=== PATIENT | female | born 1950 | race Caucasian/White ===

== ENCOUNTER → 2017-09-24 08:09 | Outpatient (CLI) | payer OTHER, SELFPAY ==
--- NOTE | 2017-09-24 14:08 | LES_PTH ---
PATIENT: NERISSA RG [facility] U#:[id number] AGE/SX: 74/F ROOM: RE09/24/[address]: Dr. Maksim Unger MD : 1950 BED: DIS: SPEC #: [id number] RECD: 09/24/17 18:25 STATUS: ESDRAS ALEXI #: [id number] IZZY: 09/24/17 14:[address]: Maksim Unger DEPT: SURGICAL PATHOLOGY RECD BY: Dinesh Bernstein ENTERED: 09/25/17 09:28 SP TYPE: Lesion OTHR DR: Kaylynn Ramirez, DEATH SURVEYS CODER-C Tissues: Skin of nose, NOS Procedures: Surgery Specimen Level IV HEADER OPERATION: Intradermal excision lesion left nasal dorsum PRE-OP DIAGNOSIS: Enlarging lesion left nasal dorsum TISSUE SUBMITTED: Left nasal dorsum MICROSCOPIC DIAGNOSIS Left nasal dorsum lesion, shave biopsy: Intradermal nevus. SJ:camila 09/28/17 MICROSCOPIC DESCRIPTION Slides are reviewed. GROSS DESCRIPTION Received in fixative is one container labeled with the patient's name and designated lesion, left nasal dorsum. The specimen consists of a light galeas shaved skin measuring 0.6 x 0.4 x 0.1 cm. The specimen is totally submitted in one cassette for postfixation sectioning. / AM:camila 09/25/17 TC:1 CPT: 34766
== END ==
PROVIDERS: Family Provider Nurse Practitioner; PCP Nurse Practitioner; Visit Provider Surgery
DX: J34.89 Other specified disorders of nose and nasal sinuses (principal)
CPT/HCPCS: 88305

== ENCOUNTER → 2018-01-28 06:28 | Outpatient (CLI) | payer OTHER, SELFPAY ==
[2018-01-28 06:34] LABS: Bacteria 0 SEEN /hpf (None Seen); Mucous, Urine 0 SEEN /hpf (<or=2+); Red Blood Cells-Urine 0 SEEN /hpf (0-5); White Blood Cells 0 SEEN /hpf (0-5)
[2018-01-28 07:26] LABS: Color, Urine Yellow (Yellow); Glucose, Dipstick Normal (Normal); Ketone-Dipstick Negative (Negative); Leukocyte Esterase-Dipstick Negative /ul (Negative); Nitrite-Dipstick Negative (Negative); Occult Blood-Urine Negative /ul (Negative); Protein-Dipstick Negative (Negative); Urine Bilirubin Dipstick Negative (Negative); Urine Clarity Clear (Clear); Urine Urobilinogen Normal (Normal)
[2018-01-28 07:33] LABS: Squamous Epithelial Cells - UA 0-5 SEEN /hpf (5-10)
[2018-01-28 07:41] LABS: Microalbumin,Random Urine < 5.0 mg/L (NO RANGE EST.)
[2018-01-28 07:45] LABS: Hemoglobin A1c 5.9 % (4.2-6.3)
[2018-01-28 07:48] LABS: Cholesterol 215 mg/dL (200); Glucose 95 mg/dL (74-106); High Density Lipoprotein 66 mg/dL; Triglycerides 124 mg/dL; Very Low Density Lipoprotein 25 mg/dL (5-40)
== END ==
PROVIDERS: Family Provider Nurse Practitioner; PCP Nurse Practitioner; Visit Provider Nurse Practitioner
DX: E78.00 Pure hypercholesterolemia, unspecified (principal); R73.01 Impaired fasting glucose; E55.9 Vitamin D deficiency, unspecified; Z80.6 Family history of leukemia
CPT/HCPCS: 36415; 80061; 81001; 82043; 82306; 82570; 82947; 83036

== ENCOUNTER → 2018-08-24 09:22 | Outpatient (CLI) | payer OTHER, SELFPAY ==
--- NOTE | 2018-08-24 09:28 | BD_ITS ---
STUDY: DUAL ENERGY X-RAY ABSORPTIOMETRY / DXA REASON FOR EXAM: Female, 68 years old. The patient is postmenopausal. Loss of height. TECHNIQUE: Bone Mineral Density (BMD) measurements of lumbar spine and right hip were obtained. The patient status post left hip replacement. COMPARISON: None. FINDINGS: Lumbar Spine (L1-L4): g/cm2 (0.964) / T-score (-1.8) / Z-score (-0.2) Findings are suggestive of osteopenia with a moderate fracture risk. Right Femur Total: g/cm2 (0.826) / T-score (-1.4) / Z-score (-0.2) Right Femoral Neck: g/cm2 (0.777) / T-score (-1.9) / Z-score (-0.4) BD/Dexa Bone Density Study IMPRESSION: The patient is considered osteopenic as outlined below according to World Dariel Organization (WHO) criteria with a moderate fracture risk. Reference Information: The T-score is the number of standard deviations above or below the standard which is normal for young adults at their peak bone mineral density. The World Health Organization (WHO) interprets the T-scores as follows: Above -1 Normal bone density Between -1 and -2.5 Osteopenia Equal to / or below -2.5 Osteoporosis As a practical clinical guideline, osteopenia may be graded as follows: Mild -1 through -1.5 Moderate -1.6 through -2.0 Severe -2.1 through -2.4 The Z-score is the number of standard deviations above or below age-matched controls. A Z-score of less than -1.5 would be considered abnormal. References: 1. NIH Osteoporosis and Related Bone Diseases http://www.osteo.org 2. International Society for Clinical Densitometry http://www.iscd.org 3. National Osteoporosis Foundation http://www.nof.org Electronically Signed: Jung Sarmiento, at 13:06 EDT , Service support ,
--- NOTE | 2018-08-24 09:28 | BI_ITS ---
MAMMOGRAPHY - BILATERAL SCREENING REASON FOR EXAM: Female, 68 years old. Routine annual screening examination. PERTINENT HISTORY: Aunt with breast cancer. TECHNIQUE: Digital bilateral breast robert (3D mammographic acquisition) in the CC and MLO projections. 2-D mediolateral oblique (MLO) and craniocaudad (CC) views of both breasts were obtained. CAD: Full Field Digital Mammography with Computer Added Detection was performed. COMPARISON: Comparison is made with prior examination dated October 13, 2014. FINDINGS: Breast Composition: The breasts are heterogeneously dense, which may obscure small masses. There are no dominant masses or suspicious calcifications. No other significant abnormalities are identified. There has been no significant change since the prior study. BI/SCREENING MAMM (CAD), BILAT IMPRESSION: Stable bilateral screening mammogram. Yearly follow-up mammogram recommended. (A) ASSESSMENT CATEGORY: BIRADS Category 1: Negative. A letter regarding these results will be sent to the patient by the facility within 30 days. Approximately 10% of breast cancers are not detected by mammography. A normal mammogram should not delay biopsy of a clinically suspicious abnormality. [id number] Electronically Signed: Jung Sarmiento, at 14:59 EDT , Service support ,
== END ==
PROVIDERS: Family Provider Nurse Practitioner; PCP Nurse Practitioner; Referring Provider Nurse Practitioner; Visit Provider Nurse Practitioner
DX: Z12.31 Encounter for screening mammogram for malignant neoplasm of breast (principal); Z78.0 Asymptomatic menopausal state; M85.80 Other specified disorders of bone density and structure, unspecified site; Z96.642 Presence of left artificial hip joint
CPT/HCPCS: 77063; 77067; 77080

== ENCOUNTER → 2018-10-28 06:16 | Outpatient (CLI) | payer OTHER, SELFPAY ==
[2017-09-24 13:56] VITALS: BMI 30.6
[2018-10-28 07:57] LABS: Cholesterol 236 mg/dL (200); High Density Lipoprotein 67 mg/dL; Triglycerides 109 mg/dL; Very Low Density Lipoprotein 22 mg/dL (5-40)
[2018-10-28 08:37] LABS: Hemoglobin A1c 5.8 % (4.2-6.3)
[2018-10-28 15:06] LABS: Vitamin B12 646 pg/mL (211-911)
== END ==
PROVIDERS: Family Provider Nurse Practitioner; PCP Nurse Practitioner; Referring Provider Nurse Practitioner; Visit Provider Nurse Practitioner
DX: R73.01 Impaired fasting glucose (principal); E78.00 Pure hypercholesterolemia, unspecified; E53.8 Deficiency of other specified B group vitamins; E55.9 Vitamin D deficiency, unspecified
CPT/HCPCS: 36415; 80061; 82306; 82607; 82746; 83036

== ENCOUNTER → 2018-11-01 13:08 | Outpatient (CLI) | payer OTHER, SELFPAY ==
[2018-11-01 14:42] LABS: AST(SGOT) 17 U/L (15-37); Alanine Aminotransfer ALT/SGPT 21 U/L (13-56); Albumin, Serum 3.9 g/dL (3.2-5.0); Alkaline Phosphatase 81 U/L (45-117); Anion Gap 10 (5-15); BUN 18 mg/dL (7-18); BUN/Creat Ratio 19.2 RATIO (10-20); Calcium,Total 9.2 mg/dL (8.5-10.1); Chloride 105 mmol/L (98-107); Creatinine, Serum 0.94 mg/dL (0.55-1.02); EST Glomerular Filtration Rate 64 mL/min (>60); Est Glom Filt Rate - Afr Amer 77 mL/min (>60); Globulin 3.9 g/dL (2.2-4.2); Glucose 77 mg/dL (74-106); Magnesium 2.4 mg/dL (1.6-2.6); Potassium 3.8 mmol/L (3.5-5.1); Protein, Total 7.8 g/dL (6.4-8.2); Sodium Level 142 mmol/L (136-145); Thyroid Stim Hormone (TSH) 1.97 uIU/mL (0.358-3.74); Vitamin B12 883 pg/mL (211-911)
== END ==
PROVIDERS: Family Provider Nurse Practitioner; PCP Nurse Practitioner; Referring Provider Nurse Practitioner; Visit Provider Nurse Practitioner
DX: I49.3 Ventricular premature depolarization (principal); E53.8 Deficiency of other specified B group vitamins
CPT/HCPCS: 36415; 80053; 82607; 83735; 84443

== ENCOUNTER → 2019-03-02 06:46 | Outpatient (CLI) | payer MEDICARE, OTHER, SELFPAY ==
[2017-09-24 13:56] VITALS: BMI 30.6
[2019-03-02 07:55] LABS: Absolute Neutrophil Count 4.7 X10^3/uL (2.0-7.7); Basophil# 0.05 X10^3/uL; Basophil% 0.5 % (0-1); Eosinophil# 0.21 X10^3/uL; Eosinophils% 2.2 % (0-5); Hematocrit 42.2 % (37-47); Hemoglobin 13.3 g/dL (12.0-15.0); Lymphocyte % 41.6 % (19-41); Mean Corp Hgb Conc 31.5 g/dL (32-36); Mean Corpuscular Hgb 28.6 pg (27.0-32.0); Mean Corpuscular Volume 90.8 fL (81-99); Mean Platelet Vol. 11.6 fl (6.2-12.0); Monocyte# 0.68 X10^3/uL; Monocyte% 7.1 % (0-10); NRBC Flagged by Analyzer 0 % (0-5); Neutrophil # 4.65 X10^3/uL (2.7-7.7); Neutrophil % 48.3 % (47-70); Platelet Count 360 K/mm3 (150-450); RBC Distribution Width CV 13.9 % (11.6-14.6); RBC Distribution Width SD 46.2 fl (35.1-43.9); Red Blood Count 4.65 M/mm3 (4.2-5.4); White Blood Count 9.6 K/mm3 (4.4-11.0)
[2019-03-02 08:05] LABS: Hemoglobin A1c 5.6 % (4.2-6.3)
[2019-03-02 08:22] LABS: AST(SGOT) 17 U/L (15-37); Alanine Aminotransfer ALT/SGPT 25 U/L (13-56); Albumin, Serum 3.8 g/dL (3.2-5.0); Alkaline Phosphatase 77 U/L (45-117); Anion Gap 9 (5-15); BUN 20 mg/dL (7-18); BUN/Creat Ratio 22.4 RATIO (10-20); Calcium,Total 8.8 mg/dL (8.5-10.1); Chloride 105 mmol/L (98-107); Cholesterol 202 mg/dL (200); Creatinine, Serum 0.89 mg/dL (0.55-1.02); EST Glomerular Filtration Rate 67 mL/min (>60); Est Glom Filt Rate - Afr Amer 81 mL/min (>60); Globulin 3.8 g/dL (2.2-4.2); Glucose 95 mg/dL (74-106); High Density Lipoprotein 67 mg/dL; Potassium 3.7 mmol/L (3.5-5.1); Protein, Total 7.6 g/dL (6.4-8.2); Sodium Level 140 mmol/L (136-145); Triglycerides 120 mg/dL; Very Low Density Lipoprotein 24 mg/dL (5-40)
[2019-03-02 08:37] LABS: Vitamin D,25 Hydroxy 28.4 ng/mL (29.95-100.01)
== END ==
PROVIDERS: Family Provider Nurse Practitioner; PCP Nurse Practitioner; Referring Provider Nurse Practitioner; Visit Provider Nurse Practitioner
DX: I49.3 Ventricular premature depolarization (principal); R73.01 Impaired fasting glucose; E78.00 Pure hypercholesterolemia, unspecified; E55.9 Vitamin D deficiency, unspecified; E53.8 Deficiency of other specified B group vitamins
CPT/HCPCS: 36415; 80053; 80061; 82306; 83036; 85025

== ENCOUNTER → 2019-06-08 09:53 | Outpatient (CLI) | payer MEDICARE, OTHER, SELFPAY ==
[2017-09-24 13:56] VITALS: BMI 30.6
[2019-06-08 10:41] LABS: Color, Urine Yellow (Yellow); Glucose, Dipstick Normal (Normal); Ketone-Dipstick Negative (Negative); Leukocyte Esterase-Dipstick Negative /ul (Negative); Nitrite-Dipstick Negative (Negative); Occult Blood-Urine Negative /ul (Negative); Protein-Dipstick Negative (Negative); Urine Bilirubin Dipstick Negative (Negative); Urine Clarity Clear (Clear); Urine Urobilinogen Normal (Normal)
[2019-06-08 11:04] LABS: AST(SGOT) 19 U/L (15-37); Alanine Aminotransfer ALT/SGPT 29 U/L (13-56); Albumin, Serum 3.8 g/dL (3.2-5.0); Alkaline Phosphatase 81 U/L (45-117); Anion Gap 4 (5-15); BUN 17 mg/dL (7-18); Calcium,Total 9.1 mg/dL (8.5-10.1); Chloride 105 mmol/L (98-107); Creatinine, Serum 0.85 mg/dL (0.55-1.02); EST Glomerular Filtration Rate 71 mL/min (>60); Est Glom Filt Rate - Afr Amer 86 mL/min (>60); Globulin 3.9 g/dL (2.2-4.2); Glucose 88 mg/dL (74-106); Potassium 3.9 mmol/L (3.5-5.1); Protein, Total 7.7 g/dL (6.4-8.2); Sodium Level 137 mmol/L (136-145)
[2019-06-08 11:09] LABS: Hemoglobin A1c 5.9 % (4.2-6.3)
[2019-06-08 11:14] LABS: Vitamin D,25 Hydroxy 40.6 ng/mL (29.95-100.01)
[2019-06-10 12:08] LABS: CHOLESTEROL TOTAL 227 mg/dL (100-199); HDL-C 72 mg/dL (>39); SMALL LDL-P 394 nmol/L (<=527); TRIGLYCERIDES 127 mg/dL (0-149)
[2019-06-10 13:38] LABS: INSULIN RESISTANCE SCORE <25 (<=45); LDL SIZE 21.6 nm (>20.5); LDL-C 130 mg/dL (0-99); LDL-P 1413 nmol/L (<1000)
== END ==
LOC: LAB 09:55
PROVIDERS: PCP Nurse Practitioner; Referring Provider Nurse Practitioner; Visit Provider Nurse Practitioner
DX: E78.00 Pure hypercholesterolemia, unspecified (principal); E55.9 Vitamin D deficiency, unspecified; R73.01 Impaired fasting glucose
CPT/HCPCS: 36415; 80053; 80061; 81002; 82306; 83036; 83704

== ENCOUNTER → 2019-10-07 10:27 | Outpatient (CLI) | payer MEDICARE, OTHER, SELFPAY ==
[2017-09-24 13:56] VITALS: BMI 30.6
[2019-10-07 11:44] LABS: Hemoglobin A1c 5.7 % (3.8-5.6)
== END ==
PROVIDERS: PCP Nurse Practitioner; Referring Provider Nurse Practitioner; Visit Provider Nurse Practitioner
DX: R73.01 Impaired fasting glucose (principal)
CPT/HCPCS: 36415; 83036

== ENCOUNTER → 2020-01-11 15:13 | Outpatient (CLI) | payer MEDICARE, OTHER, SELFPAY ==
[2017-09-24 13:56] VITALS: BMI 30.6
--- NOTE | 2020-01-11 15:16 | BI_ITS ---
MAMMOGRAPHY - BILATERAL SCREENING REASON FOR EXAM: Female, 69 years old. Routine annual screening examination. PERTINENT HISTORY: Aunt with breast cancer. TECHNIQUE: Digital bilateral breast samantha (3D mammographic acquisition) in the CC and MLO projections. 2-D mediolateral oblique (MLO) and craniocaudad (CC) views of both breasts were obtained. CAD: Full Field Digital Mammography with Computer Added Detection was performed. COMPARISON: Comparison is made with prior study dated 08/24/2018. FINDINGS: Breast Composition: The breasts are heterogeneously dense, which may obscure small masses. There are no dominant masses or suspicious calcifications. Stable benign-appearing bilateral axillary lymph nodes. No other significant abnormalities are identified. There has been no significant change since the prior study. BI/SCREEN MAMM (CAD) W/SAMANTHA BILAT IMPRESSION: Stable bilateral screening mammogram. Yearly follow-up mammogram recommended. (A) ASSESSMENT CATEGORY: BIRADS Category 2: Benign. A letter regarding these results will be sent to the patient by the facility within 30 days. Approximately 10% of breast cancers are not detected by mammography. A normal mammogram should not delay biopsy of a clinically suspicious abnormality. [id number] Electronically Signed: Jung Sarmiento, at 8:03 EDT , Service support ,
== END ==
PROVIDERS: PCP Nurse Practitioner; Referring Provider Nurse Practitioner; Visit Provider Nurse Practitioner
DX: Z12.31 Encounter for screening mammogram for malignant neoplasm of breast (principal)
CPT/HCPCS: 77063; 77067

== ENCOUNTER → 2020-02-15 08:54 | Outpatient (CLI) | payer MEDICARE, OTHER, SELFPAY ==
[2017-09-24 13:56] VITALS: BMI 30.6
[2020-02-15 09:55] LABS: Absolute Lymphocyte Count 3.41 X10^3/uL (0.83-4.51); Basophil# 0.06 X10^3/uL; Basophil% 0.7 % (0-1); Eosinophil# 0.17 X10^3/uL; Eosinophils% 1.8 % (0-5); Hematocrit 44.6 % (37-47); Hemoglobin 14.1 g/dL (12.0-15.0); Lymphocyte # 3.41 X10^3/ul (4.0); Lymphocyte % 37.1 % (19-41); Mean Corp Hgb Conc 31.6 g/dL (32-36); Mean Corpuscular Hgb 28.4 pg (27.0-32.0); Mean Corpuscular Volume 89.7 fL (81-99); Mean Platelet Vol. 11.6 fl (6.2-12.0); Monocyte# 0.57 X10^3/uL; Monocyte% 6.2 % (0-10); NRBC Flagged by Analyzer 0 % (0-5); Neutrophil # 4.96 X10^3/uL (2.7-7.7); Neutrophil % 53.9 % (47-70); Platelet Count 396 K/mm3 (150-450); RBC Distribution Width CV 14.2 % (11.6-14.6); RBC Distribution Width SD 46.5 fl (35.1-43.9); Red Blood Count 4.97 M/mm3 (4.2-5.4); White Blood Count 9.2 K/mm3 (4.4-11.0)
[2020-02-15 10:26] LABS: Hemoglobin A1c 5.9 % (3.8-5.6)
[2020-02-15 10:28] LABS: Vitamin B12 682 pg/mL (211-911); Vitamin D,25 Hydroxy 37.6 ng/mL
[2020-02-15 10:38] LABS: ALB/GLOB Ratio 0.9 RATIO (0.9-2.4); AST(SGOT) 16 U/L (15-37); Alanine Aminotransfer ALT/SGPT 23 U/L (13-56); Albumin, Serum 3.8 g/dL (3.2-5.0); Alkaline Phosphatase 79 U/L (45-117); Anion Gap 4 (5-15); BUN 15 mg/dL (7-18); BUN/Creat Ratio 16.9 RATIO (10-20); Calcium,Total 9.3 mg/dL (8.5-10.1); Chloride 109 mmol/L (98-107); Cholesterol 237 mg/dL (200); Creatinine, Serum 0.89 mg/dL (0.55-1.02); EST Glomerular Filtration Rate 67 mL/min (>60); Est Glom Filt Rate - Afr Amer 81 mL/min (>60); Globulin 4.2 g/dL (2.2-4.2); Glucose 90 mg/dL (74-106); High Density Lipoprotein 74 mg/dL; Sodium Level 140 mmol/L (136-145); Triglycerides 117 mg/dL; Very Low Density Lipoprotein 23 mg/dL (5-40)
== END ==
PROVIDERS: PCP Nurse Practitioner; Referring Provider Nurse Practitioner; Visit Provider Nurse Practitioner
DX: E78.00 Pure hypercholesterolemia, unspecified (principal); E53.8 Deficiency of other specified B group vitamins; E55.9 Vitamin D deficiency, unspecified; R73.01 Impaired fasting glucose
CPT/HCPCS: 36415; 80053; 80061; 82306; 82607; 82746; 83036; 85025

== ENCOUNTER → 2020-06-27 09:57 | Outpatient (CLI) | payer MEDICARE, OTHER, SELFPAY ==
[2017-09-24 13:56] VITALS: BMI 30.6
[2020-06-27 11:16] LABS: Vitamin D,25 Hydroxy 43.4 ng/mL
[2020-06-27 11:17] LABS: AST(SGOT) 14 U/L (15-37); Alanine Aminotransfer ALT/SGPT 20 U/L (13-56); Albumin, Serum 3.9 g/dL (3.2-5.0); Alkaline Phosphatase 86 U/L (45-117); Bilirubin, Direct 0.13 mg/dL (0.00-0.30); Cholesterol 231 mg/dL (200); Globulin 3.8 g/dL (2.2-4.2); High Density Lipoprotein 80 mg/dL; Protein, Total 7.7 g/dL (6.4-8.2); Triglycerides 146 mg/dL; Very Low Density Lipoprotein 29 mg/dL (5-40)
[2020-06-27 11:21] LABS: Hemoglobin A1c 5.6 % (3.8-5.6)
== END ==
PROVIDERS: PCP Nurse Practitioner; Referring Provider Nurse Practitioner; Visit Provider Nurse Practitioner
DX: E78.00 Pure hypercholesterolemia, unspecified (principal); E55.9 Vitamin D deficiency, unspecified; R73.01 Impaired fasting glucose
CPT/HCPCS: 36415; 80061; 80076; 82306; 83036

== ENCOUNTER 2021-06-14 11:30 | Outpatient (RCR) | payer MEDICARE, OTHER, SELFPAY ==
--- NOTE | 2021-05-02 08:56 | HP.PTEVAL ---
Patient's Visit Information NERISSA RG is a 70 year old F referred to Physical Therapy by Dr. Quinn Melissa MD with a diagnosis of Left Knee Pain. Date of Evaluation: 05/02/21 Physical Therapist: Saskia Henry DPT - Visit Plan Frequency: 2x /Week Duration: 4 Weeks Plan: Aquatic Therapy- focus on LE and core strength/stabilization with functional mobility. - Subjective In February she did a workout- walking, knee friendly lifting, core- then a few days later the left knee started to hurt-progressively worse- unable to put weight on her leg. Went and saw Dr. Melissa- started her on Meloxicam and did an injection. Reports she has an MCL sprain. Pain is located on the medial side of the knee joint- was radiating down to the ankle- but is not radiating at this point. Describes the pain as dull and achy. It was hard to put weight on it but that is getting better. Worst in last week: 3/10 Agg: being up, walking around, sit for a while and go to get up, stairs. Eases: ice, Advil, rest. Best: 0/10 after the injection. No N/T in the left foot. Workout: daily- walking work out for women over 50 years old. Was coming in swimming at in the morning but not currently doing that again. 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 Did have x-rays but no MRI. Sleep: not disturbed. PMHx: no significant changes since urgent care visit 04/21/21- Left THR - Objective Posture: FH, RS, can correct with verbal and tactile cues but does not maintain. Gait: decreased stance on the left LE with decreased heel/toe pattern. Stairs: asc recip with 1 HR- desc recip with poor control -1 HR. HR/TR: able with UE A. SLS: 5 sec then LOB. Sensation: WNL to gross touch bilateral LE. ROM: 0-130 degrees without pain. Strength: core: fair, Hip: 4/5 throughout, Knee: 4+/5, Ankle: 5/5. No pain with quad set- SLR: mild lag cueing with quad set improved without lag. Flex: HS: severe, Gastroc: severe Solues: moderate. Palpation: medial joint line - Balance/Special Test Scores Lower Extremity Functional Score: 70 - Goals Goal 1:: Patient will be I with HEP and progression Goal Time Frame: 4-6 Weeks Goal 2:: Patient will asc/desc 8 stairs recip with 1 HR and good control Goal Time Frame: 4-6 Weeks Goal 3:: Patient will ambulate >300 feet with a normalized gait pattern Goal Time Frame: 4-6 Weeks - Rehabilitation Potential Physical Therapy Diagnosis: Patient presents with hypomobility- she has decreased LE and core strength/stabilization, flex and muscular endurance leading to abnormal gait and decreased ability to perform ADL's. Rehabilitation Potential: Good - Anticipated Interventions Patient/Client Instruction: Educate patient on: Benefits of Fitness Program Therapeutic Exercise to Include: Strength training, Endurance training, Balance training, Coordination, Agility training, Body mechanics, Postural training, Flexibilty training, Gait and locomotor training, Neuromotor development, In an aquatic setting, Passive ROM, Active ROM, Dynamic Lumbar Stabilization, Mabel Exercises, Scapular Strength/Stabilization For the Purpose of:: To improve muscle performance and motor function Thank you for the opportunity to evaluate your patient. For Medicare and Medicare HMO plans, please review the plan of care and approve it. It will need to be FAXED BACK to us at [phone] for Medicare purposes. For Medicare only, by signing this I certify the plan of care. Please let me know if there are questions or concerns regarding this plan of care. Physician Signature: Date:
--- NOTE | 2021-05-27 09:56 | HP.PTREVAL_ITS ---
Dr. Quinn Melissa MD, It has been my pleasure to treat NERISSA RG over the last 9 visits for Left Knee Pain. Please see the progress note below for an update on the physical therapy plan of care! Subjective: Patient reports that she is 200% better. She is not having any pain in it- only soreness from working out. She is back to her land exercises and is working without pain. She did come in to [employer] [facility] [employer] on Thursday and did her own exercises. Would like to progress to land exercises to continue to progress. Objective/Function: Posture: good throughout in hard back chair. Gait: no deviation noted. Stairs: asc/desc 8 stairs recip- can do with no HR but prefers single HR. HR/TR: able with UE A. SLS: 8 sec then LOB with focus on pelvic stabilization. Sensation: WNL to gross touch bilateral LE. ROM: 0-130 degrees without pain. Strength: core: fair plus, Hip: 4+/5 throughout, Knee: 5/5, Ankle: 5/5. Flex: HS: mod, Gastroc: mod Solues: moderate. Palpation: not tender to touch Plan Plan: 05/27: Progression to land based program- focus on gym home exercise program and balance. Balance/Gait/Functional tests - Balance/Special Test Scores Lower Extremity Functional Score: 76 Goals Goal 1:: Patient will be I with HEP and progression Goal Time Frame: 4-6 Weeks Goal Progress: Progressing Goal 2:: Patient will asc/desc 8 stairs recip with 1 HR and good control Goal Time Frame: 4-6 Weeks Goal Progress: Goal Met Goal 3:: Patient will ambulate >300 feet with a normalized gait pattern Goal Time Frame: 4-6 Weeks Goal Progress: Goal Met Anticipated Interventions Patient/Client Instruction: Educate patient on: Benefits of Fitness Program Therapeutic Exercise to Include: Strength training, Endurance training, Balance training, Coordination, Agility training, Body mechanics, Postural training, Flexibilty training, Gait and locomotor training, Neuromotor development, In an aquatic setting, Passive ROM, Active ROM, Dynamic Lumbar Stabilization, Mabel Exercises, Scapular Strength/Stabilization For the Purpose of:: To improve muscle performance and motor function Please do not hesitate to contact me at [phone] by phone or if you have questions or concerns regarding this new plan of care! Sincerely, DEEPTI JacksonT
--- NOTE | 2021-06-14 11:47 | HP.PTDCSUM ---
It has been my pleasure to treat NERISSA RG referred by Dr. Quinn Melissa MD, with the diagnosis of Left Knee Pain for a total of 13 visit(s). Discharge Date: Please see the following information for a summary of their discharge status. Subjective: Patient reports that she worked for 10 hours last week and it was to much. She was getting better but feels like that was a set back. Feels the injection is wearing off. She felt like she as 99% better but now its tender again and 80%. LLE Pain Intensity (Out of 10): 3 % Improvement: 80 Objective/Function: Posture: good throughout in hard back chair. Gait: no deviation noted. Stairs: asc/desc 8 stairs recip- can do with no HR but prefers single HR. HR/TR: able with UE A. SLS: 8 sec then LOB with focus on pelvic stabilization. Sensation: WNL to gross touch bilateral LE. ROM: 0-130 degrees without pain. Strength: core: fair plus, Hip: 4+/5 throughout, Knee: 5/5, Ankle: 5/5. Flex: HS: mod, Gastroc: mod Solues: moderate. Palpation: not tender to touch Goal 1:: Patient will be I with HEP and progression Goal Progress: Goal Met Goal 2:: Patient will asc/desc 8 stairs recip with 1 HR and good control Goal Progress: Goal Met Goal 3:: Patient will ambulate >300 feet with a normalized gait pattern Goal Progress: Goal Met Plan: Discharge to [facility]. If there are questions or concerns regarding this patient's physical therapy, please feel free to call me at [phone]. Thank you for the referral of this patient. Sincerely, Saskia Henry, DPT Balance/Gait/Functional tests - Balance/Special Test Scores Lower Extremity Functional Score: 75
== END 2021-06-14 19:00 | disposition home or self-care (01) ==
LOC: PT 11:30
PROVIDERS: PCP Nurse Practitioner; Referring Provider Specialist; Visit Provider Specialist
DX: M17.12 Unilateral primary osteoarthritis, left knee (principal)
CPT/HCPCS: 97110; 97113; 97162; 97164

== ENCOUNTER 2022-05-08 16:47 | Outpatient (CLI) | payer MEDICARE, OTHER, SELFPAY ==
--- NOTE | 2022-05-11 16:30 | PCM.HP.STD ---
HPI - General General Date of Admission: 05/15/22 Date of Service: 05/15/22 Chief Complaint: Chronic venous insufficiency, Varicose veins with inflammation, Leg pain - Left lower extremity [facility] Narrative NERISSA RG is a 71 F who presents with a longstanding history of pain and discomfort in her left lower extremity. She suffers from chronic venous insufficiency and varicose veins with inflammation. She is active, and sleeps on a flat surface at night. She has had one episode of superficial thrombophlebitis in the right lower extremity many years ago. A venous duplex examination reveals incompetentce of the left great saphenous vein, small saphenous vein, and vein of Giacomini. The implications of this diagnosis have been discussed with the patient in detail. The options of management have been thoroughly explained. Conservative treatment measures have been implemented for many months, including leg elevation, avoidance of idle standing and sitting, graduated compression stockings, active lifestyle, weight-control measures, [id number] analgesics, etc. Despite these measures, the patient remains symptomatic, with symptoms that adversely affect daily activities, quality of life, and job functions. [facility] Medical History (Updated 05/11/22 @ 16:[address] Tyler Knight MD) Alcohol use Arthritis Bone fracture Chronic venous insufficiency Cyst High cholesterol History of irregular heartbeat History of pain when walking Leg cramps Leg pain, left Non-smoker Osteoarthritis Post-menopausal Pre-diabetes Varicose veins of left lower extremity with inflammation Home Medications simvastatin 20 mg tablet (Zocor) 20 mg PO QPM 09/24/17 [History Last Taken Unknown] ascorbic acid (vitamin C) 250 mg tablet (Vitamin C) 900 mg PO DAILY 05/08/22 [History Last Taken Unknown] vitamin D3 125 mcg (5,000 unit)-vitamin K2 90 mcg capsule 1 cap PO DAILY 05/08/22 [History Last Taken Unknown] Allergy/AdvReac Type Severity Reaction Status Date / Time No Known Allergies Allergy Unverified 05/08/22 13:13 Family History Mother A-fib Heart disease Hypertension High cholesterol Father Arthritis Pre-diabetes Hypertension High cholesterol Aunt Breast cancer Chronic lymphocytic leukemia Uncle Chronic lymphocytic leukemia Surgical History History of appendectomy History of cataract removal with insertion of prosthetic lens History of total hip replacement Social History Smoking Status: Never smoker alcohol intake: current substance use type: does not use additional social history: DOES USE ASPIRIN DOES USE IBUPROFEN Physical Exam Const alert, oriented x3, no apparent distress and well nourished General Appearance: cooperative and well developed Orientation / Consciousness: awake, oriented to person, oriented to place and oriented to time HEENT normocephalic and head/scalp atraumatic Head and Scalp: normal to inspection, normocephalic and atraumatic External Ear: external ears normal Eyes PERRL and EOMs intact bilaterally General Eye: normal appearance of both eyes Neck General: trachea midline Resp normal respiratory effort, normal air movement, no retractions, no use of accessory muscles and clear to auscultation bilaterally Effort and Inspection: able to speak in complete sentences Cardio regular rate and regular rhythm GI soft to palpation and non-tender Extremity normal capillary refill, no clubbing, cyanosis or edema and no calf tenderness Extremity Narrative: Multiple large varicosities are noted in the lower extremities bilaterally. General Extremity: Negative for clubbing or cyanosis Skin Rashes: no rashes Neuro oriented x3, CN's II-XII intact bilaterally, no focal motor deficits and no sensory deficits noted Speech: speech normal Psych thought process normal, cooperative and affect normal Appearance: grossly normal and appropriate Attitude: calm Activity / Motor Behavior: appropriate eye contact Speech: normal speech Mood & Affect: euthymic mood Thought Process: normal thought process Thought Content: normal thought content Attention / Concentration: attention grossly intact Assessment & Plan Assessment/Plan (1) Chronic venous insufficiency: (2) Varicose veins of left lower extremity with inflammation: (3) Leg pain, left: PLAN: Plan This is a 71 year-old female with a longstanding history of chronic venous insufficiency, varicose veins with inflammation, and leg pain affecting her left lower extremity. Despite conservative treatment measures, the patient continues to have symptoms that adversely affect daily activities, quality of life, and job functions. The options of management have been thoroughly discussed. The indications and risks of endovenous laser ablation of the left great saphenous vein, small saphenous vein, and vein of Giacomini have been discussed with the patient in detail. Plan: The patient is to be admitted for elective endovenous laser ablation of the left great saphenous vein, small saphenous vein, and vein of Giacomini. The indications and risks of the procedure have been discussed in detail. Expectations of the procedure have been explained. The patient's questions have been answered. The appropriate pre-procedure consent process has been undertaken.
[2022-05-14 07:35] LABS: Hematocrit 43.5 % (37-47); Mean Corp Hgb Conc 32.2 g/dL (32-36); Mean Corpuscular Hgb 29.3 pg (27.0-32.0); Mean Platelet Vol. 11.4 fl (6.2-12.0); Platelet Count 381 K/mm3 (150-450); RBC Distribution Width CV 14.4 % (11.6-14.6); Red Blood Count 4.78 M/mm3 (4.2-5.4); White Blood Count 8.8 K/mm3 (4.4-11.0)
[2022-05-14 08:05] LABS: Anion Gap 8 (5-15); BUN 16 mg/dL (7-18); BUN/Creat Ratio 16.7 RATIO (10-20); Calcium,Total 9.2 mg/dL (8.5-10.1); Chloride 108 mmol/L (98-107); Creatinine, Serum 0.96 mg/dL (0.55-1.02); EST Glomerular Filtration Rate 61 mL/min (>60); Est Glom Filt Rate - Afr Amer 74 mL/min (>60); Glucose 101 mg/dL (74-106); Sodium Level 143 mmol/L (136-145)
== END 2022-05-08 23:59 | disposition home or self-care (01) ==
LOC: PAT 05-27 16:47
PROVIDERS: Referring Provider Surgery; Visit Provider Surgery
DX: Z01.812 Encounter for preprocedural laboratory examination (principal)
CPT/HCPCS: 36415; 80048; 85027; J7040

== ENCOUNTER → 2022-06-10 | Outpatient (CLI) | payer MEDICARE, OTHER, SELFPAY ==
[2022-06-10 08:24] LABS: AST(SGOT) 15 U/L (15-37); Alanine Aminotransfer ALT/SGPT 23 U/L (13-56); Albumin, Serum 3.9 g/dL (3.2-5.0); Alkaline Phosphatase 77 U/L (45-117); Anion Gap 6 (5-15); BUN 19 mg/dL (7-18); BUN/Creat Ratio 19.2 RATIO (10-20); Calcium,Total 9.3 mg/dL (8.5-10.1); Chloride 106 mmol/L (98-107); Cholesterol 343 mg/dL (200); Creatinine, Serum 0.99 mg/dL (0.55-1.02); EST Glomerular Filtration Rate 59 mL/min (>60); Est Glom Filt Rate - Afr Amer 71 mL/min (>60); Globulin 3.8 g/dL (2.2-4.2); Glucose 100 mg/dL (74-106); High Density Lipoprotein 75 mg/dL; Potassium 3.9 mmol/L (3.5-5.1); Protein, Total 7.7 g/dL (6.4-8.2); Sodium Level 139 mmol/L (136-145); Triglycerides 152 mg/dL; Very Low Density Lipoprotein 30 mg/dL (5-40)
[2022-06-10 08:27] LABS: Vitamin B12 541 pg/mL (211-911); Vitamin D,25 Hydroxy 31.1 ng/mL
[2022-06-12 15:08] LABS: CHOLESTEROL TOTAL 339 mg/dL (100-199); HDL-C 77 mg/dL (>39); HDL-P TOTAL 38.7 umol/L (>=30.5); SMALL LDL-P 424 nmol/L (<=527); TRIGLYCERIDES 139 mg/dL (0-149)
[2022-06-12 17:28] LABS: INSULIN RESISTANCE SCORE <25 (<=45); LDL SIZE 21.8 nm (>20.5); LDL-C (NIH CALC) 237 mg/dL (0-99); LDL-P 1992 nmol/L (<1000)
== END | disposition home or self-care (01) ==
LOC: LAB 06:33
PROVIDERS: PCP Nurse Practitioner Family; Referring Provider Nurse Practitioner Family; Visit Provider Nurse Practitioner Family
DX: E55.9 Vitamin D deficiency, unspecified (principal); E53.8 Deficiency of other specified B group vitamins; E78.5 Hyperlipidemia, unspecified; R73.01 Impaired fasting glucose
CPT/HCPCS: 36415; 80053; 80061; 82306; 82607; 82746; 83704

== ENCOUNTER → 2022-06-23 | Outpatient (CLI) | payer MEDICARE, OTHER, SELFPAY ==
--- NOTE | 2022-06-23 09:59 | BI_ITS ---
MAMMOGRAPHY - BILATERAL SCREENING REASON FOR EXAM: Female, 71 years old. Routine annual screening examination. PERTINENT HISTORY: Aunt with breast cancer. TECHNIQUE: Digital bilateral breast samantha (3D mammographic acquisition) in the CC and MLO projections. 2-D mediolateral oblique (MLO) and craniocaudad (CC) views of both breasts were obtained. CAD: Full Field Digital Mammography with Computer Added Detection was performed. COMPARISON: Comparison is made with prior study dated 01/11/2020 and 08/24/2018 FINDINGS: Breast Composition: The breasts are heterogeneously dense, which may obscure small masses. There are no dominant masses or suspicious calcifications. Stable benign-appearing bilateral axillary lymph nodes. No other significant abnormalities are identified. There has been no significant change since the prior study. BI/SCRN MAMM (CAD)W/SAMANTHA BILAT IMPRESSION: Stable bilateral screening mammogram. Yearly follow-up mammogram recommended. (A) ASSESSMENT CATEGORY: BIRADS Category 2: Benign. A letter regarding these results will be sent to the patient by the facility within 30 days. Approximately 10% of breast cancers are not detected by mammography. A normal mammogram should not delay biopsy of a clinically suspicious abnormality. [id number] Electronically Signed: Jung Sarmiento MD at 14:35 EST ,
== END | disposition home or self-care (01) ==
LOC: OPBI 09:55
PROVIDERS: PCP Nurse Practitioner Family; Referring Provider Nurse Practitioner Family; Visit Provider Nurse Practitioner Family
DX: Z12.31 Encounter for screening mammogram for malignant neoplasm of breast (principal)
CPT/HCPCS: 77063; 77067

== ENCOUNTER → 2022-08-27 | Outpatient (CLI) | payer MEDICARE, OTHER, SELFPAY ==
[2022-08-27 10:54] LABS: Erythrocyte Sedimentation Rate 7 mm/hr (0-30)
[2022-08-27 11:10] LABS: Hemoglobin A1c 5.9 % (3.8-5.6)
[2022-08-27 11:23] LABS: CRP, High Sensitivity Cardiac 2.23 mg/L; Cholesterol 223 mg/dL (200); High Density Lipoprotein 85 mg/dL; Triglycerides 78 mg/dL; Very Low Density Lipoprotein 16 mg/dL (5-40)
== END | disposition home or self-care (01) ==
PROVIDERS: PCP Nurse Practitioner Family; Referring Provider Nurse Practitioner Family; Visit Provider Nurse Practitioner Family
DX: E55.9 Vitamin D deficiency, unspecified (principal); E78.5 Hyperlipidemia, unspecified; R73.01 Impaired fasting glucose
CPT/HCPCS: 36415; 80061; 83036; 85652; 86141

== ENCOUNTER → 2022-09-12 | Outpatient (CLI) | payer MEDICARE, OTHER, SELFPAY ==
--- NOTE | 2022-09-12 12:57 | CT_ITS ---
CT RIGHT LOWER EXTREMITY WITH 3-D IMAGING CLINICAL INDICATION: TOMEKA. Finding for right total knee replacement. Prior left hip replacement. TECHNIQUE: Axial CT images of the RIGHT lower extremity was performed without IV contrast material. Coronal and sagittal reformats were provided. RADIATION DOSAGE (If Supplied By Facility): CTDIvol = ( 18.76 ) mGy, DLP = ( 1149.41 ) mGycm COMPARISON: FINDINGS: Bones: Imaging of the right hip joint was obtained. There is mild degree of joint space narrowing. Degenerative spur formation is seen along the superior lateral aspect of the right femoral head. Imaging of the knee joint was performed. There is a marked degree of joint space narrowing involving the medial compartment of knee joint with the tiny subchondral cystic changes. Degenerative spur formation is seen in the medial and lateral femoral condyles as well as the lateral tibial plateau. No significant joint effusion is seen. Imaging of the ankle joint was obtained as well. No significant abnormality is seen. Soft Tissues: The deep soft tissue structures are unremarkable. The superficial soft tissues are unremarkable without evidence of edema, hematoma, or foreign body. CT/Extremity Lower without Contra IMPRESSION: Marked degree of joint space narrowing involving the medial compartment of the knee joint with minimal subcutaneous chondral cystic changes in the medial compartment. Electronically Signed: Jung Sarmiento MD at 15:12 EDT ,
== END | disposition home or self-care (01) ==
LOC: CT 12:55
PROVIDERS: PCP Nurse Practitioner Family; Referring Provider Specialist; Visit Provider Specialist
DX: M21.161 Varus deformity, not elsewhere classified, right knee (principal); G89.29 Other chronic pain; Z96.651 Presence of right artificial knee joint
CPT/HCPCS: 73700

== ENCOUNTER 2022-09-24 05:54 | Day surgery (SDC) | payer MEDICARE, OTHER, SELFPAY ==
--- NOTE | 2022-09-08 13:02 | PCM.HP.BLA ---
History and Physical History and Physical? Patient Name: Nadine Dos Santos : 1950 From:? CRISTINE OWUSU PA-C? DATE OF SURGERY:? 09/24/2022 SCHEDULED PROCEDURE:? Right total knee arthroplasty HISTORY OF PRESENT ILLNESS: Preoperative history and physical exam was performed on September 08, 2022.? This is a 72-year-old female who has had ongoing pain for years in bilateral knees.? Her right knee is worse than the left.? Her pain can reach 7/10 with activities.? Pain is increased with going up and down stairs, walking, standing.? Pain has been intermittent, aching and sore.? Pain is located over the medial part of the knee.? She does have start up pain.? Patient states her pain has been affecting all activities in which she has had to modify her activities.? She has stumbled secondary to the knee pain.? Patient has tried rest, ice, heat, elevation with minimal relief.? She has tried previous corticosteroid injections, Synvisc injections years ago without relief, aquatic therapy with minimal relief.? She has tried oral medications including meloxicam and Tylenol.? She has also used CBD ointment.? She has had previous to corticosteroid injections.? Denies past history of surgery on the right knee.? She denies past history of DVT or pulmonary embolism.? Patient's listed medical problem is hypercholesterolemia.? We are obtaining surgical clearance from primary care provider Dr. Lopez.? After failing conservative measures and discussing all treatment options with Dr. Quinn Melissa, the patient does wish to proceed with a right total knee arthroplasty. REVIEW OF SYSTEMS: Review Of Systems: Constitutional: Denies change in appetite, fever and weight change. Cardiovasular: Denies chest pain, heart murmur and irregular heartbeat. Respiratory: Denies cough, pneumonia, shortness of breath, tuberculosis and wheezing. Gastrointestinal: Denies constipation, diarrhea, heartburn, nausea, rectal itching, bloody stools and vomiting. Genitourinary: Denies incontinence. Musculoskeletal: Reports gait disturbance and pain, but denies leg swelling, trouble walking and weakness. Skin: Denies Raynaud's, history of shingles and tattoo. Neurological: Denies ambulatory dysfunction, dizziness, numbness/tingling and tremor. Psychiatric: Denies anxiety, insomnia and stress. Hematologic/Lymphatic: Denies anemia, bleeding/bruising tendency and past transfusion. Reviewed, no changes. PAST MEDICAL HISTORY: Advance Care Plan: Other Directive, LIVING WILL Effective Date: 04/29/2021 Other Directive, POA Effective Date: 04/29/2021 Past Medical History: Medical Problems: Arthritis, Hypercholesterolemia Accidents: RT Wrist FX - (05/2008) Surgical Hx: Appendectomy - (1977) Cataracts - (2012) Hip Replacement Lt - (2007) Anesthesia Complications: None Assistive Devices: None Reviewed, no changes. 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 Personal Habits:? Cigarette Use: Never Smoked Cigarettes.Smokeless Tobacco: Never Used Smokeless Tobacco.E-Cigarette Use: Never used.Alcohol: Denies use.Drug Use: Denies Use.Enjoy Exercising: Exercises 1-3 X/Week. Reviewed, no changes. VITALS: Ht: 61 Wt: 157lb Wt k.215 BMI: 29.7 BP: 122/78 Pulse: 66 Resp: 20 T: 97.9 T: 36.6C Pain Level: 0 O2SatR: 99 ALLERGIES: No Known Drug Allergy? MEDICATIONS: Zofran 4 mg one by mouth every 8 as needed nausea, Famotidine 20 mg 1 by mouth every day, Oxycodone HCL 5 mg 1-2 tab by mouth every 4 hours, Meloxicam 15 mg 1 by mouth every day, Advil 200 mg 2po qday PRN, T-Relief CBD+13 cbd+13 as needed, Coq10 100 mg qd, Pravastatin Sodium 40 mg 1 PO daily, Vitamin D3 25 mcg (1000 Ut) 1 a day PRE-OP EXAM:? General appearance:NORMAL? ? ? Other: Eyes: Conjunctivae and lids: NORMAL? Pupils: ERR Ears, Nose, Mouth, and Throat: NORMAL? Other: Inspection of lips, teeth and gums: NORMAL? ?Other: Neck: Examination of neck: no masses noted. Respiratory: Assessment of respiratory effort: NORMAL? ?Other: ?Auscultation of lungs: clear to auscultation no wheezes, rhonchi or rales. Cardiovascular:? Auscultation of heart: regular rate and rhythm, no murmurs, gallops or rubs. PHYSICAL EXAMINATION: Patient does walk with an antalgic gait.? Right knee has tenderness to palpation along the medial joint line.? She has moderate effusion.? She has correctable varus alignment.? Range of motion: Lacks 5 full extension to 120 flexion.? She has 3 mm laxity with MCL testing.? Stable to anterior/posterior drawer exam. 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 IMPRESSION: 1.? Severe right knee osteoarthritis with varus alignment 2.? Left knee osteoarthritis 3.? Hypercholesterolemia 4.? Overactive bladder PLAN: Dr. Quinn Melissa did discuss and review with the patient all treatment options including surgical versus nonsurgical options.? Patient does wish to proceed with the above-stated procedure.? Potential risks, benefits, and complications of the procedure were discussed in detail including but not limited to , infection, nerve and blood vessel damage, persistent pain, numbness, tingling, paresthesias, blood clot, pulmonary embolism, and requirement for possible further surgery.? The patient expressed full understanding and has no further questions for the doctor.? Patient does agree to proceed with the above-stated procedure and has signed the surgery consent form. POST-OP MEDICATION PLAN: Pain Medications: Patient was given the following medications at the preoperative visit: Oxycodone, Tylenol and will resume her meloxicam postoperatively. DVT Prophylaxis: Aspirin 81 mg twice daily for 4 weeks postoperatively.? Denies past history of DVT or pulmonary embolism This dictation was created using voice recognition software. Phonetic and/or grammatical errors may exist. ___? I have re-examined the patient.? There are no clinical changes since date of exam. ___? See progress notes for changes. ___? Dictated on admission Date: ? ? ?Time: Signature:
[2022-09-09 09:53] LABS: Absolute Lymphocyte Count 3.58 X10^3/uL (0.83-4.51); Absolute Neutrophil Count 4.2 X10^3/uL (2.0-7.7); Basophil# 0.06 X10^3/uL; Basophil% 0.7 % (0-1); Eosinophils% 2.4 % (0-5); Hematocrit 44.3 % (37-47); Hemoglobin 14.1 g/dL (12.0-15.0); Lymphocyte # 3.58 X10^3/ul (0.83-4.51); Lymphocyte % 42.1 % (19-41); Mean Corp Hgb Conc 31.8 g/dL (32-36); Mean Corpuscular Hgb 29.1 pg (27.0-32.0); Mean Corpuscular Volume 91.3 fL (81-99); Mean Platelet Vol. 11.4 fl (6.2-12.0); Monocyte# 0.49 X10^3/uL; Monocyte% 5.8 % (0-10); NRBC Flagged by Analyzer 0 % (0-5); Neutrophil # 4.15 X10^3/uL (2.7-7.7); Neutrophil % 48.6 % (47-70); Platelet Count 377 K/mm3 (150-450); RBC Distribution Width CV 13.9 % (11.6-14.6); Red Blood Count 4.85 M/mm3 (4.2-5.4); White Blood Count 8.5 K/mm3 (4.4-11.0)
[2022-09-09 10:06] LABS: AST(SGOT) 18 U/L (15-37); Alanine Aminotransfer ALT/SGPT 24 U/L (13-56); Albumin, Serum 3.8 g/dL (3.2-5.0); Alkaline Phosphatase 80 U/L (45-117); Anion Gap 4 (5-15); BUN 14 mg/dL (7-18); BUN/Creat Ratio 16.6 RATIO (10-20); Calcium,Total 9.3 mg/dL (8.5-10.1); Chloride 109 mmol/L (98-107); Creatinine, Serum 0.84 mg/dL (0.55-1.02); EST Glomerular Filtration Rate 71 mL/min (>60); Est Glom Filt Rate - Afr Amer 86 mL/min (>60); Globulin 3.8 g/dL (2.2-4.2); Glucose 100 mg/dL (74-106); Potassium 3.9 mmol/L (3.5-5.1); Protein, Total 7.6 g/dL (6.4-8.2); Sodium Level 139 mmol/L (136-145)
[2022-09-09 10:48] LABS: Magnesium 2.1 mg/dL (1.6-2.6)
[2022-09-24] VITALS (10 sets, daily range): BP systolic 106–129; BP diastolic 45–78; PULSE 62–87; RESP 16–17; TEMP 36.3–36.8; O2SAT 97–100; BMI 28.7
[2022-09-24] MEDS: Lactated Ringers 1,000 ML 999 ML IV ×2 (06:45→09:41)
[2022-09-24] MEDS: Magnesium 1 GM over 15 mins IV (06:45)
[2022-09-24] MEDS: Lactated Ringers 1,000 ML 75 ML IV (06:45)
[2022-09-24] MEDS: Celecoxib 200 MG Capsule 400 MG PO (06:46)
[2022-09-24] MEDS: Acetaminophen 500 MG Tablet 1000 MG PO (06:46)
[2022-09-24] MEDS: Gabapentin 600 MG Tablet PO (06:46)
--- NOTE | 2022-09-24 07:33 | OP.PCM_ITS ---
Report of Operation Date of Procedure: 09/24/22 Pre-Operative Diagnosis: Right knee primary osteoarthritis Post-Operative Diagnosis: Right knee primary osteoarthritis Surgery/Procedure Performed:: Right minimally invasive robotic total knee replacement Description of Surgical Findings:: Stable knee with good patella tracking Surgeon: Quinn Melissa personnel clerks supervisor: Tj Mercado Type of Anesthesia: Spinal Anesthesiologist: Jayson Dent Special Medications: 2 g Ancef, 1 g TXA at incision, 1 g TXA closure, 10 mg Decadron, joint cocktail (5 mg Duramorph, 30 mL of 0.5% Ropivicaine, 1000 units of epinephrine, 30 mg of Toradol) Specimen's removed: Bony cuts Estimated Blood Loss (mL): 50 Fluids Replaced: 1000 ML Description of Procedure: Implants used: 1. Mallory size 3 triathlon cruciate retaining distal femoral press-fit component 2. Mallory size 3 press-fit tritanium tibial baseplate 3. [place] X3 9 mm CS polyethylene 4. [place] X3 32 mm press-fit asymmetric patella Brief history operative indications: 72-year-old F with history of right knee osteoarthritis with radiographic findings with loss of joint space, osteophyte formation and subchondral sclerosis. Failed conservative measures as mentioned in the H&P. Discussion of total knee arthroplasty as well as risk and benefits were discussed the patient including but not limited to blood loss, DVTs, PEs, neurovascular damage, gener al risk of anesthesia including loss of life, and stiffness or instability were discussed with patient. Patient demonstrated understanding and was able to sign informed consent. Procedure: On the date of procedure patient's right lower extremity was marked in the preoperative area. The patient was then taken back to the operating room where the patient was placed on the table in the supine position. All bony prominences were identified a well-padded. Anesthesia assumed control of the C-spine and airway and remained controlled throughout the remainder of the procedure. A tourniquet was placed on the right upper thigh and the leg was prepped in a sterile fashion. The surgeon then scrubbed at this time .Upon reentering the room right lower extremity was draped in a standard orthopedic fashion. A timeout was then called and everyone agreed upon the side, the site, the procedure to be performed, patient's identity and antibiotics given. Esmarch bandage was used to exsanguinate the extremity and the tourniquet was placed up to 250 mmHg with the knee in flexion. A midline skin incision was made and sharp dissection was taken down through skin subcutaneous tissue and fat. The standard medial parapatellar incision was made and the patella was subluxed laterally. An Appropriate deep MCL release was done and the fat pad was resected. Our attention was then directed to the patella. The patella was everted and a flat resection was made. The knee was then flexed up in 2 femoral pins were placed inside the incision and 2 tibial pins were placed outside the incision in the medial tibia bicortically. Once this was completed the 2 checkpoints in the femur and tibia were placed. Knee was then flexed up and the bony landmarks were registered. Once this was completed knee was taken through range of motion and manually stressed allowing us to a plan for an appropriate tibial cut. The robotic arm was brought into the field sterilely and checkpoint and saw were registered. Based on the patient's deformity the tibial cut was made in 3 degrees of varus. At this time the tensioner was then placed in the joint and ligament tension was checked at 90 degrees and full extension. Based on the patient's ligamentous tension appropriate adjustments were made to the operative plan and ligament releases were done. Once we were happy with our operative plan with balanced flexion and extension gaps our attention was directed to the femur. The robot was brought into the field sterilely and registered. Posterior condylar cuts, anterior chamfer cuts and anterior cuts were appropriately made for a size 3 femur. When these were completed the saws were switched out in the distal femoral and posterior chamfer cuts were made. Protecting the soft tissue throughout this time. A size 3 tibial base plate was selected. the knee was flexed to 90 degrees and the soft tissues and posterior osteophytes were removed from the joint. 40 cc of the periarticular injection was injected into the posterior medial corner of the joint. The appropriate trials were then placed on the femur and tibia. A trial polyethylene was trialed to ensure proper balancing and stability of the knee. The appropriate tibial internal rotation was then marked with a bovie. Our attention was then directed to the patella. The lug holes were drilled and the patella trial was placed. Patellar tracking was checked and deemed appropriate. Once we were happy lug holes were drilled for the femur and trial components were removed. the tibia was subluxed and pinned into place and the keel was punched and drilled appropriately. Final components were verified and opened, and cement was mixed in a vacuum. BubbleNoise Simplex cement was used. The wound was copiously irrigated with normal saline. When the cement was ready the components were impacted into place starting with the tibia, femur and finally cementing the patella. The trial poly component was placed and the knee was placed in full extension. All excess cement was removed in the process. Once the cement had cured the tracking, alignment and balance were verified and a size 9 mm CS polyethylene component was placed. Once the final components were placed a 3-minute dilute Betadine lavage was performed followed by an Irrisept lavage was performed and the wound was copiously irrigated with normal saline solution and the periarticular injection was given. The wound was closed in a layer judd fashion using #1 vicryl interrupted sutures for the arthrotomy, 2-0 interrupted Vicryl suture for the subcuticular layer and gerri for final skin closure. A sterile compressive dressing was then placed. The patient was then awakened from anesthesia, transferred to the [place] and transferred to the PACU for recovery. Post op plan DVT ppx: ASA 81mg BID, thigh high compression stockings Follow up: in office in 2 weeks for wound check PT: to start POD #0 at hospital, outpatient PT should be arranged. My physician assistant center manager was a vital part of this case. He was important in appropriate retraction during the case, and protection of soft tissues during bony cuts. His intimate knowledge of the case and my steps aided in safe and expedient completion of the procedure as well as appropriate position of the leg during the case. He was also vital in assisting with closure under my direct supervision. Due to the complexity of this case robotic arm was used to assist in the surgery to improve accuracy and clinical outcomes. Complications No intraoperative complications Admit VTE Documentation VTE Present on Admission: No VTE Mechan Device Prophylaxis: SCD's and Thigh High ANISHA Hose VTE Pharm Prophylaxis ordered?: Yes
[2022-09-24 07:45] LABS: Bedside Glucose 110 mg/dL (74-106)
[2022-09-24] MEDS: Cefazolin 2 GM in 0.9% Normal Saline 100 ML IV (08:00)
--- NOTE | 2022-09-24 08:00 | KNEE_PTH ---
PATIENT: NERISSA RG LOC: [facility] U#:[id number] AGE/SX: 72/F ROOM: RE09/24/[address]: Dr. Quinn Melissa MD : 1950 BED: DIS: 09/24/2022 SPEC #: [id number] RECD: 09/24/22 11:37 STATUS: ESDRAS REQ #: [id number] IZZY: 09/24/22 08:[address]: Quinn Melissa DEPT: SURGICAL PATHOLOGY RECD BY: Millie Anton ENTERED: 09/24/22 13:05 SP TYPE: TOTAL KNEE OTHR DR: Herlinda Lopez, BANDAR-C Tissues: Knee, NOS Procedures: Decalcification bone/plaque Surgery Specimen Level IV HEADER OPERATION: DIANE, robotic assisted total knee arthroplasty PRE-OP DIAGNOSIS: Arthritis right knee TISSUE SUBMITTED: Debrided bone and tissue right knee MICROSCOPIC DIAGNOSIS Bone and tissue, right knee, total knee replacement/resection: Pieces of bone with degenerative osteoarthritic changes. Fibroadipose tissue, fibroconnective tissue and reactive synovial tissue. KEV:camila 09/26/2022 MICROSCOPIC DESCRIPTION Slides are reviewed. GROSS DESCRIPTION Received is one container designated debrided bone and tissue right knee. The specimen consists of multiple fragments of galeas-yellow bone measuring in aggregate 9.0 x 10.0 x 3.0 cm. A small piece of soft tissue attached to one of the pieces of bone measures 3.0 x 1.0 x 0.5 cm. A number of bony fragments contain articular surfaces consistent with tibial plateau and femoral condyle and displaying prominent osteophyte formation and bone erosion. Heading And Priming Operator sections are submitted in two cassettes as follows: 1 ? entire soft tissue, 2 - bone after decalcification. / KEV:camila 09/24/2022 :[facility]: [id number], [id number]
[2022-09-24] MEDS: TXA 1000mg in NS100 100ml (IVPB at Incision) 660 MG IV (08:14)
[2022-09-24] MEDS: JPS (Morphine 10mg/ml) OPERA.SITE (08:44)
[2022-09-24] MEDS: TXA 1000mg in NS100 100ml (IVPB at Closure) 660 MG IV (08:49)
[2022-09-24] MEDS: Lactated Ringers 1,000 ML 125 ML IV (09:00)
--- NOTE | 2022-09-24 09:50 | RAD_ITS ---
STUDY: X-RAY - RIGHT KNEE REASON FOR EXAM: Female, 72 years old. tka -- in PACU TECHNIQUE: 2 view(s) of the knee. COMPARISON: None. Findings: There is a recent total knee arthroplasty. The femoral and tibial components appear in satisfactory position. There has been patellar resurfacing. There is soft tissue air related to the recent surgery. The visualized femoral, tibial, and fibular shafts are unremarkable. RAD/Knee 1 or 2 Views IMPRESSION: Satisfactory appearance of a total knee arthroplasty. Electronically Signed: Howard Steel MD at 17:37 EDT ,
[2022-09-24] MEDS: Cefazolin 1 GM/50 ML BAG IV (12:24)
== END 2022-09-24 13:53 | disposition home or self-care (01) ==
LOC: SDC 05:56 → AC 05:57
PROVIDERS: Anesthesiology; PCP Nurse Practitioner Family; Referring Provider Specialist; Visit Provider Specialist
PROC: 0SRC0JZ Replacement of Right Knee Joint with Synthetic Substitute, Open Approach (ICD-10-PCS; CPT 27447; principal; 2022-09-24 07:30)
DX: M17.0 Bilateral primary osteoarthritis of knee (principal); N32.81 Overactive bladder; E78.00 Pure hypercholesterolemia, unspecified; Z79.899 Other long term (current) drug therapy
CPT/HCPCS: 27447; S2900; 01402; 64448; 36415; 73560; 80053; 82962; 83735; 85025; 87081; 88305; 88311; 97161; C1776; J7120; J2405; J3475

== ENCOUNTER 2022-12-02 10:00 | Outpatient (RCR) | payer MEDICARE, OTHER, SELFPAY ==
--- NOTE | 2022-09-29 08:55 | HP.PTEVAL_ITS ---
Patient's Visit Information NERISSA RG is a 72 year old F referred to Physical Therapy by Dr. Quinn Melissa MD with a diagnosis of R TKA. Date of Evaluation: 09/24/22 Physical Therapist: Giovanny Gomez DPT - Visit Plan Frequency: 2-3x /Week Duration: 6 Weeks Plan: Start with restoring ROM, add in pain/edema control. Progress gait and functional mobility. - Subjective Pt. is here today for her initial evaluation with diagnosis of R TKA. DOS: 09/24/22. Pt. arrives with FWW with reports of minimal pain. Pt. is pleased thus far. She has been doing her exercises at home. She still has bandage on and is to remove this weekend. Pt. reports no calf pain. No N/T, no difficulty breathing, no fever. 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 Pt. does have to be on her feet 8+ hours a few days per week. Pt. is sleeping well. She is taking meds as prescribed and wearing TEDs as prescribed. Pt. is hopeful to get back to all recreational and work activities without limitations. - Pain R knee Pain Intensity (Out of 10): 2 Pain Intensity Range: 0, 5 - Objective POSTURE: Pt. has great posture in stance. Equal wt. shift noted. Pt. uses FWW for stability. PALPATION: Pt. has increased edema in R LE (+3 cm at mid patella), +3cm at 4 inch above mid patella. Pt. has tenderness thorughout knee. No marked pitting edema. Pt. has negative homans sign. NEURO: normal throughout BLEs. Pt. is able to rise on heels and toes without limitations. ROM: R knee AROM 0-2-92deg. PROM 0-0-101deg. Pt. has normal HS length bilaterally without increase in symptoms. MMT: RLE: ankle 5/5 throughout; knee: ext 3#, flexion 5#; hip: flexion 5#, abd 3#, ext 4#. GAIT: Pt. ambulates with FWW with pretty good step length. She has a decrease in tempo as expected. Lacks slight knee extension during stance phase. Descent knee flexion during swing. STAIRS: Step to pattern with 2 HR. - Balance/Special Test Scores TUG Test Time Seconds: 33 WOMAC Total Score: 20 WOMAC Percentatge: 79.1700 - Goals Goal 1:: LTG: Pt. to be I with HEP. Goal Time Frame: 4-6 Weeks Goal 2:: STG: PT. to have increased R knee ROM to 0-0-120deg AROM. Goal Time Frame: 2-4 Weeks Goal 3:: LTG: PT. to have equal edema between B LEs. Goal Time Frame: 2-4 Weeks Goal 4:: LTG: Pt. to have increased RLE strength symmetrical to L side allowing for increased ability to complete all daily activities. Goal Time Frame: 4-6 Weeks Goal 5:: LTG: Pt. to ambulate without AD with normal gait pattern without increase in symptoms. Goal Time Frame: 4-6 Weeks Goal 6:: LTG: Pt. to negotiate 1 flight of stairs with 1 HR with reciprocal pattern without increase in symptoms. Goal Time Frame: 4-6 Weeks - Rehabilitation Potential Physical Therapy Diagnosis: Pt. has signs and symptoms consistent with R TKA, DOS: 09/24/22. Pt. has marked hypomobility, weakness, difficulty walking and would benefit from PT to work on the above limitations. Rehabilitation Potential: Excellent - Anticipated Interventions Patient/Client Instruction: Educate patient on: Condition, Plan of Care, Risk F actors, Benefits of Fitness Program For the Purpose of:: To improve decision making, To facilitate caregiver knowledge, To improve self management, To prevent re-injury, To improve ability to perform tasks related to life management, To improve tolerance to ADL's Therapeutic Exercise to Include: Strength training, Power training, Endurance training, Postural training, Flexibilty training, Neuromotor development, Passive ROM, Active ROM For the Purpose of:: To decrease pain, To decrease swelling/inflammation, To increase ROM, To improve nutrient delivery to tissue, To increase oxygenation perfusion, To improve muscle performance and motor function, To improve ability to perform ADL's, To increase tolerance to activity/condition/position, To improve performance and independence with ADL's, To decrease level of supervision to perform tasks, To improve ability of physical actions for home/community/work/leisure, To improve gait and locomotor functions Manual Therapy Techniques to Include: Mobilization, Passive ROM, Soft tissue mobilization For the Purpose of:: To decrease pain, To decrease swelling/inflammation, To increase ROM, To improve nutrient delivery to tissue Cryotherapy (ice pack, ice massage): Yes Vasopneumatic device: Yes For the Purpose of:: To decrease pain, To decrease swelling/inflammation, To increase ROM, To improve nutrient delivery to tissue, To increase oxygenation perfusion Thank you for the opportunity to evaluate your patient. For Medicare and Medicare HMO plans, please review the plan of care and approve it. It will need to be FAXED BACK to us at [phone] for Medicare purposes. For Medicare only, by signing this I certify the plan of care. Please let me know if there are questions or concerns regarding this plan of care. Physician Signature: Date:
--- NOTE | 2022-11-20 12:01 | HP.PTREVAL ---
Re-Evaluation Intro: Dr. Quinn Melissa MD, It has been my pleasure to treat NERISSA RG over the last 14 visits for R TKA. Please see the progress note below for an update on the physical therapy plan of care! Subjective Subjective: Pt. reports overall doing well. Pt. is to follow up with physician next week. No pain noted pre treatment, but is c/o swelling and stiffness. Objective Objective/Function: RLE: ROM: 0-0-121deg. PROM: 0-0-123deg. Pt. has good HS length and good hip flexor length. MMT: RLE: ankle 5/5 throughout; knee: ext 4+/5, flexion 4+/5; hip: flexion 4+/5, abd 4/5. Core strength: fair. GAIT: Pt. ambulates well without AD. Slight increased lateral sway, but no increase in symptoms. STAIRS: Pt. has no issues with stairs, slight increase in symptoms with descending. Plan Plan Plan: Pt. is overall doing well. Pt. to follow up with physician next week. Balance/Gait/Functional tests Balance/Special Test Scores Lower Extremity Functional Score: 52 TUG Test Time Seconds: 33 Tug Test: >30sec.=impaired mobility WOMAC Total Score: 9 WOMAC Percentage: 90.6300 Goals Goals Goal 1:: LTG: Pt. to be I with HEP. Goal Time Frame: 4-6 Weeks Goal Progress: Goal Met Goal 2:: STG: PT. to have increased R knee ROM to 0-0-120deg AROM. Goal Time Frame: 2-4 Weeks Goal Progress: Progressing Goal 3:: LTG: PT. to have equal edema between B LEs. Goal Time Frame: 2-4 Weeks Goal Progress: Progressing Goal 4:: LTG: Pt. to have increased RLE strength symmetrical to L side allowing for increased ability to complete all daily activities. Goal Time Frame: 4-6 Weeks Goal Progress: Progressing Goal 5:: LTG: Pt. to ambulate without AD with normal gait pattern without increase in symptoms. Goal Time Frame: 4-6 Weeks Goal Progress: Progressing Goal 6:: LTG: Pt. to negotiate 1 flight of stairs with 1 HR with reciprocal pattern without increase in symptoms. Goal Time Frame: 4-6 Weeks Goal Progress: Progressing Anticipated Interventions Anticipated Interventions Patient/Client Instruction: Educate patient on: Condition, Plan of Care, Risk Factors and Benefits of Fitness Program For the Purpose of:: To improve decision making, To facilitate caregiver knowledge, To improve self management, To prevent re-injury, To improve ability to perform tasks related to life management and To improve tolerance to ADL's Therapeutic Exercise to Include: Strength training, Power training, Endurance training, Postural training, Flexibilty training, Neuromotor development, Passive ROM and Active ROM For the Purpose of:: To decrease pain, To decrease swelling/inflammation, To increase ROM, To improve nutrient delivery to tissue, To increase oxygenation perfusion, To improve muscle performance and motor function, To improve ability to perform ADL's, To increase tolerance to activity/condition/position, To improve performance and independence with ADL's, To decrease level of supervision to perform tasks, To improve ability of physical actions for home/community/work/leisure and To improve gait and locomotor functions Manual Therapy Techniques to Include: Mobilization, Passive ROM and Soft tissue mobilization For the Purpose of:: To decrease pain, To decrease swelling/inflammation, To increase ROM and To improve nutrient delivery to tissue Cryotherapy (ice pack, ice massage): Yes Vasopneumatic device: Yes For the Purpose of:: To decrease pain, To decrease swelling/inflammation, To increase ROM, To improve nutrient delivery to tissue and To increase oxygenation perfusion Re-Evaluation Ending Re-evaluation ending: Please do not hesitate to contact me at [phone] by phone or if you have questions or concerns regarding this new plan of care! Sincerely, Giovanny Gomez DPT
--- NOTE | 2022-12-02 12:03 | HP.PT.NRP ---
Patient Information Patient Information: NADINE RG was seen in my office for initial evaluation on 09/24/22. The following Plan of Care was established for this patient: POC Established Initial Frequency: 2-3x /Week Initial Duration: 6 Weeks Anticipated Interventions Patient/Client Instruction: Educate patient on: Condition, Plan of Care, Risk Factors and Benefits of Fitness Program For the Purpose of:: To improve decision making, To facilitate caregiver knowledge, To improve self management, To prevent re-injury, To improve ability to perform tasks related to life management and To improve tolerance to ADL's Therapeutic Exercise to Include: Strength training, Power training, Endurance training, Postural training, Flexibilty training, Neuromotor development, Passive ROM and Active ROM For the Purpose of:: To decrease pain, To decrease swelling/inflammation, To increase ROM, To improve nutrient delivery to tissue, To increase oxygenation perfusion, To improve muscle performance and motor function, To improve ability to perform ADL's, To increase tolerance to activity/condition/position, To improve performance and independence with ADL's, To decrease level of supervision to perform tasks, To improve ability of physical actions for home/community/work/leisure and To improve gait and locomotor functions Manual Therapy Techniques to Include: Mobilization, Passive ROM and Soft tissue mobilization For the Purpose of:: To decrease pain, To decrease swelling/inflammation, To increase ROM and To improve nutrient delivery to tissue Cryotherapy (ice pack, ice massage): Yes Vasopneumatic device: Yes For the Purpose of:: To decrease pain, To decrease swelling/inflammation, To increase ROM, To improve nutrient delivery to tissue and To increase oxygenation perfusion Last Seen Last Seen: This patient was last seen in our office 12/02/22. Pertinent comments regarding their Physical therapy will appear below: I talked to Nadine after getting done with aquatic therapy. She reports overall doing well. She reports no pain or problems. She does have some concern about having numbness at her lateral knee. I talked to her that this is normal and should improve over time. Pt. reports no longer needing PT. I will DC her from PT this date. At this point I will be discontinuing this patient from physical therapy. I would be happy to see this patient again in the future if found appropriate by the physician. Thank you! Giovanny Hassanos, DPT Balance/Gait/Functional tests Balance/Special Test Scores Lower Extremity Functional Score: 52 TUG Test Time Seconds: 33 Tug Test: >30sec.=impaired mobility WOMAC Total Score: 9 WOMAC Percentage: 90.6300
== END 2022-12-02 19:00 | disposition home or self-care (01) ==
LOC: PT 10:00
PROVIDERS: PCP Nurse Practitioner Family; Referring Provider Specialist; Visit Provider Specialist
DX: Z47.1 Aftercare following joint replacement surgery (principal); Z96.651 Presence of right artificial knee joint; M17.11 Unilateral primary osteoarthritis, right knee
CPT/HCPCS: 97110; 97113; 97161; 97164

== ENCOUNTER → 2023-01-09 | Outpatient (CLI) | payer MEDICARE, OTHER, SELFPAY ==
[2023-01-09 08:20] LABS: Cholesterol 217 mg/dL (200); High Density Lipoprotein 61 mg/dL; Triglycerides 179 mg/dL; Very Low Density Lipoprotein 36 mg/dL (5-40)
== END | disposition home or self-care (01) ==
LOC: LAB 06:29
PROVIDERS: PCP Nurse Practitioner Family; Referring Provider Nurse Practitioner Family; Visit Provider Nurse Practitioner Family
DX: E78.5 Hyperlipidemia, unspecified (principal)
CPT/HCPCS: 36415; 80061

== ENCOUNTER 2023-05-14 07:14 | Day surgery (SDC) | payer MEDICARE, OTHER, SELFPAY ==
--- NOTE | 2023-04-30 10:02 | EKG12_ITS ---
Test Reason : PRE OP Blood Pressure : / mmHG Vent. Rate : 061 BPM Atrial Rate : 061 BPM P-R Int : 142 ms QRS Dur : 078 ms QT Int : 420 ms P-R-T Axes : 011 -24 017 degrees QTc Int : 422 ms Normal sinus rhythm with sinus arrhythmia Low voltage QRS Borderline ECG Confirmed by MIKE TORRES, SUJIT ([id number]), editorial cartoonist MAURICIO MENDOZA ([id number]) on 05/04/2023 1:57:02 P M Referred By: Tyler Knight Confirmed By:CARY MCKEON MD
[2023-04-30 10:17] LABS: Absolute Neutrophil Count 3.3 X10^3/uL (2.0-7.7); Basophil# 0.05 X10^3/uL; Basophil% 0.7 % (0-1); Eosinophil# 0.16 X10^3/uL; Eosinophils% 2.3 % (0-5); Hematocrit 42.9 % (37-47); Hemoglobin 13.5 g/dL (12.0-15.0); Lymphocyte % 42.3 % (19-41); Mean Corp Hgb Conc 31.5 g/dL (32-36); Mean Corpuscular Hgb 28.2 pg (27.0-32.0); Mean Corpuscular Volume 89.7 fL (81-99); Mean Platelet Vol. 10.5 fl (6.2-12.0); Monocyte# 0.46 X10^3/uL; Monocyte% 6.7 % (0-10); NRBC Flagged by Analyzer 0 % (0-5); Neutrophil # 3.27 X10^3/uL (2.7-7.7); Neutrophil % 47.7 % (47-70); Platelet Count 387 K/mm3 (150-450); RBC Distribution Width CV 14.4 % (11.6-14.6); Red Blood Count 4.78 M/mm3 (4.2-5.4); White Blood Count 6.9 K/mm3 (4.4-11.0)
[2023-04-30 11:55] LABS: AST(SGOT) 16 U/L (15-37); Alanine Aminotransfer ALT/SGPT 18 U/L (13-56); Albumin, Serum 3.7 g/dL (3.2-5.0); Alkaline Phosphatase 75 U/L (45-117); Anion Gap 3 (5-15); BUN 18 mg/dL (7-18); BUN/Creat Ratio 21.6 RATIO (10-20); Calcium,Total 9.4 mg/dL (8.5-10.1); Chloride 109 mmol/L (98-107); Creatinine, Serum 0.83 mg/dL (0.55-1.02); EST Glomerular Filtration Rate 72 mL/min (>60); Est Glom Filt Rate - Afr Amer 87 mL/min (>60); Globulin 3.7 g/dL (2.2-4.2); Glucose 90 mg/dL (74-106); Potassium 4.2 mmol/L (3.5-5.1); Protein, Total 7.4 g/dL (6.4-8.2); Sodium Level 138 mmol/L (136-145)
--- NOTE | 2023-05-10 10:47 | HP.PCM_ITS ---
[facility] - General General Date of Admission: 05/14/23 Date of Service: 05/14/23 Chief Complaint: Chronic venous insufficiency, varicose veins with inflammation, leg pain - left lower extremity [facility] Narrative NERISSA RG, is a 72 F who presents with a long history of varicose vein disease in her lower extremities. She experiences pain, discomfort, and tenderness in her lower extremities. This has been ongoing for approximately 40 years. She denies significant swelling. She has had an episode of superficial thrombophlebitis in the right lower extremity many years ago. She is active. She sleeps on a flat surface at night. She has previously undergone injection sclerotherapy in the right lower extremity many years ago, following which she experienced an episode of superficial thrombophlebitis. Venous duplex examination has been performed, revealing incompetence of the left great saphenous vein, the left small saphenous vein, and the left vein of Giacomini. The implications of this diagnosis have been discussed with the patient in detail. The options of management have been fully explained. Conservative treatment measures have been implemented for many months, including leg elevation, avoidance of idle standing and sitting, graduated compression stockings, weight control measures, active lifestyle, [id number] everett lgesics, etc. Despite these measures, the patient has remained symptomatic, with symptoms which have adversely affected daily activities, quality of life, and job functions. [facility] Medical History Alcohol use Arthritis Bladder disease Bone fracture Chronic venous insufficiency Cyst High cholesterol History of irregular heartbeat History of pain when walking Leg cramps Leg pain, left Non-smoker Osteoarthritis Post-menopausal Varicose veins of left lower extremity with inflammation Home Medications vitamin D3 125 mcg (5,000 unit)-vitamin K2 90 mcg capsule 1 cap PO DAILY SUPPLEMENT 05/08/22 [History Last Taken Unknown] ibuprofen 200 mg tablet (Advil) 600 mg PO Q6H PRN Pain 09/10/22 [History Last Taken Unknown] pravastatin 40 mg tablet 40 mg PO QHS CHOLESTEROL 09/10/22 [History Last Taken Unknown] Allergy/AdvReac Type Severity Reaction Status Date / Time No Known Allergies Allergy Verified 04/29/23 08:38 Family History Mother A-fib Heart disease Hypertension High cholesterol Father Arthritis Pre-diabetes Hypertension High cholesterol Aunt Breast cancer Chronic lymphocytic leukemia Uncle Chronic lymphocytic leukemia Surgical History History of appendectomy History of cataract removal with insertion of prosthetic lens History of total hip replacement Hx of total knee arthroplasty Social History Smoking Status: Never smoker alcohol intake: current substance use type: does not use additional social history: DOES USE ASPIRIN DOES USE IBUPROFEN Physical Exam Const alert, oriented x3, no apparent distress and well nourished General Appearance: cooperative and well developed Orientation / Consciousness: awake, oriented to person, oriented to place and oriented to time HEENT normocephalic and head/scalp atraumatic Head and Scalp: normal to inspection, normocephalic and atraumatic External Ear: external ears normal Eyes PERRL and EOMs intact bilaterally General Eye: normal appearance of both eyes Neck General: trachea midline Resp normal respiratory effort, normal air movement, no retractions and no use of accessory muscles Effort and Inspection: able to speak in complete sentences Cardio regular rate GI non-distended Extremity normal capillary refill, no clubbing, cyanosis or edema and no calf tenderness Extremity Narrative: Lower extremities are warm and well-perfused. No significant swelling is noted. There are no open wounds or ulcerations. Multiple large varicosities are noted in the lower extremities bilaterally. General Extremity: Negative for clubbing or cyanosis Skin General Skin Exam: no breakdown Rashes: no rashes Neuro oriented x3, CN's II-XII intact bilaterally, no focal motor deficits and no sensory deficits noted Speech: speech normal Psych thought process normal, cooperative and affect normal Appearance: grossly normal and appropriate Attitude: calm Activity / Motor Behavior: appropriate eye contact Speech: normal speech Mood & Affect: euthymic mood Thought Process: normal thought process Thought Content: normal thought content Attention / Concentration: attention grossly intact Results Lab / Micro Data 04/30/23 09:54 04/30/23 09:54 Assessment & Plan Assessment/Plan (1) Chronic venous insufficiency: (2) Varicose veins of left lower extremity with inflammation: (3) Leg pain, left: PLAN: Plan This is a 72-year-old female with a longstanding history of chronic venous insufficiency, varicose veins with inflammation, and leg pain in her lower extremities bilaterally. Venous duplex examination has revealed incompetence involving the left great saphenous vein, the left small saphenous vein, and the left vein of Giacomini. The implications of this diagnosis have been discussed with the patient in detail. The options of management have been fully explained. Conservative treatment measures have been implemented, which have included leg elevation, avoidance of idle standing and sitting, graduated compression stockings, weight control measures, active lifestyle, [id number] analgesics, etc. Despite these measures, which have been ongoing for several years, the patient has continued to have symptoms in her lo wer extremities. Indications and risks of endovenous laser ablation of the left great saphenous vein, the left small saphenous vein, and the left vein of Giacomini have been discussed with the patient in detail. The nature of the procedure has been thoroughly explained. Expectations of the procedure have been discussed. The patient's questions have been answered. The patient has indicated her desire to proceed. She is to be admitted for the purpose of elective endovenous laser ablation of the left great saphenous vein, left small saphenous vein, and the left vein of Giacomini. The appropriate preprocedure consent process has been undertaken.
[2023-05-14] VITALS (8 sets, daily range): BP systolic 90–156; BP diastolic 59–82; PULSE 70–86; RESP 14–18; TEMP 36.1–36.8; O2SAT 92–99; BMI 29.9
--- OUTSIDE RECORDS SUMMARY | 2023-05-14 07:18 | XMS RPT_ITS | CCD ---
Author Name Unknown Address [address] [place] [address] Organization [facility] Care Team Providers Care Senior Resident Care Director Name Role Phone YrischloeaKaylynn E Unavailable Maksim Unger Unavailable Tyler Knight Unavailable Igor Pickard Unavailable Mily Chu Unavailable Unavailable Gravius, Carolyn Unavailable Unavailable Lj, Asra Unavailable Unavailable Unavailable Unavailable Yrissanjay Kathrine Unavailable Maksim Unger Unavailable Tyler Knight Unavailable Igor Pickard Unavailable Yoly Johnson Unavailable Unavailable Mily Chu Unavailable Unavailable Unavailable Unavailable Marlon Bright Unavailable Unavailable Unavailable Unavailable John Obregon Unavailable Marlon Friedman Unavailable Unavailable Yoly Johnson Unavailable Unavailable Marlon Bright Unavailable Unavailable Lj, Sara Unavailable Unavailable Cisanjay SALDIVAR Kathrine Unavailable Maksim Unger Unavailable Tyler Knight MD Unavailable Igor Pickard MD Unavailable Dr. John Obregon Unavailable Marlon Friedman LPN Unavailable Unavailable Yoly Johnson RN Unavailable Unavailable Unavailable Unavailable Cichloea Kaylynn Unavailable Unavailable Ciesa Kaylynn Unavailable Mary Hernandez LPN Unavailable Unavailable Herlinda Lopez CNP Unavailable [phone] Zaida Herbert MA Unavailable Unavailable Kaylynn Ramirez Attending Unavailable Kaylynn Ramirez Consulting Unavailable Isaura Schneider DO Referring Unavailable Herlinda Lopez CNP Unavailable [phone] Medications Completed/Discontinued Medications Medication Drug Class(es) Dates Sig (Normalized) Sig (Original) ampicillin 500 mg oral capsule (20 sources) Penicillin-class Antibacterial Start: 03-25-2016 End: 10-27-2016 Ampicillin 500 MG Oral Capsule 2 (two) Capsule before procedure for 0 days Quantity: 2 {Capsule} Refills: 0 Ordered: 27-Oct-2016 Sun [employer] Start : 25-Mar-2016 End : 27-Oct-2016 Inactive ascorbic acid 500 mg oral tablet (11 sources) Vitamin C Vitamin C 500 mg oral tablet 2 tabs (500 mg) Active Problems Active Problems Problem Classification Problem Date Documented Da te Episodic/Chronic Biliary tract disease (20 sources) Biliary sludge; Translations: [Sludge in gallbladder] 03-23-2018 Chronic Past or Other Problems Problem Classification Problem Date Documented Da te Episodic/Chronic Cataract (20 sources) Cataract Residual codes; unclassified (20 sources) Increased body mass index; Translations: [BMI 29.0-29.9,adult] 03-23-2018 Episodic Unclassified (20 sources) Pregnancies 03-23-2018 Results Test Name Value Interpretation Reference Range Facil ity Vital Signs Date Time Vital Sign Value Performing Clinician Facility 01-13-2023 09:14-0400 Body height 154.94 cm Mary Hernandez LPN [facility] Work Phone: 01-13-2023 09:14-0400 Body mass index (BMI) [Ratio] 28.91 kg/m2 Mary Hernandez LPN [facility] Work Phone: 01-13-2023 09:14-0400 Body surface area Derived from formula 1.69 m2 Mary Hernandez LPN [facility] Work Phone: 01-13-2023 09:14-0400 Body temperature 96.8 [degF] Mary Hernandez LPN [facility] Work Phone: Encounters Encounter Date Encounter Type Care Provider Facility Start: 01-13-2023 End: 01-23-2023 Office outpatient visit 15 minutes Herlinda John SALDIVAR Work Phone: [facility] Start: 01-13-2023 Review Herlinda John SALDIVAR Work Phone: [facility] Start: 09-04-2022 Review Herlinda Lopez CNP Work Phone: [facility] Start: 09-03-2022 End: 09-03-2022 Office consultation new/estab patient 30 min Herlinda John USED [employer] Work Phone: [facility] Start: 09-03-2022 End: 09-03-2022 Preprocedural examination done Mary Hernandez LPN [facility] Work Phone: Start: 08-08-2022 ambulatory [facility] Start: 06-20-2022 End: 06-20-2022 Office outpatient visit [address] [facility] Start: 06-06-2022 End: 06-16-2022 Office outpatient visit 15 minutes Kaylynn Ramirez [facility] Start: 05-25-2022 Review [facility] Start: 07-25-2020 End: 07-25-2020 Periodic preventive med est patient 65yrs& older [facility] Start: 07-02-2020 End: 07-02-2020 Office outpatient visit 10 minutes Kaylynn Ramirez [facility] Start: 02-22-2020 End: 02-22-2020 Office outpatient visit [address] [facility] Start: 10-14-2019 End: 10-14-2019 Office outpatient visit [address] [facility] Start: 10-07-2019 End: 10-07-2019 Annotation/Addendum Kaylynn [facility] Start: 10-06-2019 End: 10-06-2019 Phone Encounter [facility]nn Ramirez [facility] Start: 07-29-2019 End: 07-29-2019 Annotation/Addendum Kay[facility]nn Ramirez [facility] Start: 07-26-2019 End: 07-26-2019 Annotation/Addendum Kaylynn Ramirez [facility] Start: 06-14-2019 End: 06-14-2019 Office outpatient visit [address] [facility] Start: 06-08-2019 End: 06-08-2019 Annotation/Addendum Kaylynn Ramirez [facility] Start: 03-07-2019 End: 03-07-2019 Office outpatient visit [address] [facility] Start: 03-07-2019 Review Kaylynn Ramirez [facility] Start: 11-01-2018 End: 11-01-2018 Office outpatient visit [address] [facility] Start: 11-01-2018 Review Kaylynn Ramirez [facility] Start: 08-26-2018 End: 08-26-2018 Annotation/Addendum Kaylynn [facility] Start: 03-23-2018 End: 03-23-2018 Office outpatient visit 25 minutes [facility] Start: 02-08-2018 End: 02-08-2018 Periodic preventive med est patient 65yrs& older [facility] Start: 09-14-2017 End: 09-16-2017 Annotation/Addendum Kaylynn Ramirez [facility] Start: 02-16-2017 End: 02-16-2017 Office outpatient visit [address] [facility] Start: 01-27-2017 End: 01-27-2017 Patient encounter status [facility]nn [facility] Start: 01-27-2017 End: 01-27-2017 Periodic preventive med est patient 40-64yrs [address] [facility] Start: 10-27-2016 End: 10-27-2016 Office outpatient visit [address] [facility] Start: 03-25-2016 End: 03-25-2016 Phone Encounter [facility]lynn [address] [facility] Start: 02-21-2016 End: 02-22-2016 Patient encounter [address]nn [address] [facility] Start: 02-05-2016 End: 02-05-2016 Initial preventive medicine new patient 40-64yrs [address] [facility] Start: 02-05-2016 End: 02-05-2016 Patient encounter status [facility] Patient encounter status Marlon Friedman LPN [facility] Work Phone: Patient encounter status Zaida Herbert MA [facility] Work Phone: Patient encounter status Zaida Herbert MA [facility] Work Phone: Patient encounter status Mary Hernandez LPN [facility] Work Phone: Patient encounter status Mary Hernandez LPN [facility] Work Phone: End: 01-13-2023 Preprocedural examination done Herlinda Lopez USED [employer] Work Phone: [facility] Work Phone: Procedures Date Procedure Procedure Detail Performing Clinician Start: 01-01-2023 End: 01-02-2023 Office Visit Report Procedure Note: See Note; NOTES: [facility] [place] [address] OFFICE VISIT Date of Service: 01/01/23 MR#: [id number] Acct: [id number] Patient: NADINE RG Rep #: [id number] : 1950 Provider: STANLEY Troncoso Age/Sex: 72/F Location: [facility] Status: Signed Employer Purchased Covid Test Note: Patient here today for Covid Testing, requested by their Employer. Assessment and Plan Assessment and Plan Orders: Orders POC Cepheid Covid, FluAB, RSV 01/01/23 01/02/23 0613 <Electronically signed by Roni ANGEL> Date Roni ANGEL Cosigner Signature: Date (if applicable) CC: Herlinda Lopez USED [employer] Work Phone: Start: 11-20-2022 End: 11-20-2022 Re-Evaluation - PT (1) Procedure Note: See Note; NOTES: [facility] [address] [place] [address] / REEVALUATION / MEDICARE RECERTIFICATION PHYSICAL THERAPY MR#: [id number] Acct: [id number] Name: NADINE RG Rep #: [id number] : 1950 72 From: Giovanny Gomez DPT Referring Dr.: Dr. Quinn Melissa MD Status:REG RCR Insurance: MEDICARE PART A B [employer] SR SUPPLEMENT INS Re-Evaluation Intro: Dr. Quinn Melissa MD, It has been my pleasure to treat NADINE RG over the last 14 visits for R TKA. Please see the progress note below for an update on the physical therapy plan of care! Subjective Subjective: Pt. reports overall doing well. Pt. is to follow up with physician next week. No pain noted pre treatment, but is c/o swelling and stiffness. Objective Objective/Function: RLE: ROM: 0-0-121deg. PROM: 0-0-123deg. Pt. has good HS length and good hip flexor length. MMT: RLE: ankle 5/5 throughout; knee: ext 4+/5, flexion 4+/5; hip: flexion 4+/5, abd 4/5. Core strength: fair. GAIT: Pt. ambulates well without AD. Slight increased lateral sway, but no increase in symptoms. STAIRS: Pt. has no issues with stairs, slight increase in symptoms with descending. Plan Plan Plan: Pt. is overall doing well. Pt. to follow up with physician next week. Balance/Gait/Functional tests Balance/Special Test Scores Lower Extremity Functional Score: 52 TUG Test Time Seconds: 33 Tug Test: >30sec.=impaired mobility WOMAC Total Score: 9 WOMAC Percentage: 90.6300 Goals Goals Goal 1:: LTG: Pt. to be I with HEP. Goal Time Frame: 4-6 Weeks Goal Progress: Goal Met Goal 2:: STG: PT. to have increased R knee ROM to 0-0-120deg AROM. Goal Time Frame: 2-4 Weeks Goal Progress: Progressing Goal 3:: LTG: PT. to have equal edema between B LEs. Goal Time Frame: 2-4 Weeks Goal Progress: Progressing Goal 4:: LTG: Pt. to have increased RLE strength symmetrical to L side allowing for increased ability to complete all daily activities. Goal Time Frame: 4-6 Weeks Goal Progress: Progressing Goal 5:: LTG: Pt. to ambulate without AD with normal gait pattern without increase in symptoms. Goal Time Frame: 4-6 Weeks Goal Progress: Progressing Goal 6:: LTG: Pt. to negotiate 1 flight of stairs with 1 HR with reciprocal pattern without increase in symptoms. Goal Time Frame: 4-6 Weeks Goal Progress: Progressing Anticipated Interventions Anticipated Interventions Patient/Client Instruction: Educate patient on: Condition, Plan of Care, Risk Factors and Benefits of Fitness Program For the Purpose of:: To improve decision making, To facilitate caregiver knowledge, To improve self management, To prevent re-injury, To improve ability to perform tasks related to life management and To improve tolerance to ADL's Therapeutic Exercise to Include: Strength training, Power training, Endurance training, Postural training, Flexibilty training, Neuromotor development, Passive ROM and Active ROM For the Purpose of:: To decrease pain, To decrease swelling/inflammation, To increase ROM, To improve nutrient delivery to tissue, To increase oxygenation perfusion, To improve muscle performance and motor function, To improve ability to perform ADL's, To increase tolerance to activity/condition/position, To improve performance and independence with ADL's, To decrease level of supervision to perform tasks, To improve ability of physical actions for home/community/work/leisure and To improve gait and locomotor functions Manual Therapy Techniques to Include: Mobilization, Passive ROM and Soft tissue mobilization For the Purpose of:: To decrease pain, To decrease swelling/inflammation, To increase ROM and To improve nutrient delivery to tissue Cryotherapy (ice pack, ice massage): Yes Vasopneumatic device: Yes For the Purpose of:: To decrease pain, To decrease swelling/inflammation, To increase ROM, To improve nutrient delivery to tissue and To increase oxygenation perfusion Re-Evaluation Ending Re-evaluation ending: Please do not hesitate to contact me at [phone] by phone or if you have questions or concerns regarding this new plan of care! Sincerely, Giovanny Gomez, ELIEZER <Electronically signed by Giovanny Gomez DPMana> 11/20/22 1201 CC: JEAN Lopez; Dr. Quinn Melissa MD CLS Signed For Medicare only, by signing this I certify the plan of care. Physicians Signature Date Herlinda Lopez USED [employer] Work Phone: Start: 09-29-2022 End: 09-29-2022 Inital Evaluation (1) - PT Procedure Note: See Note; NOTES: [facility] [address] [place] [address] / REHABILITATION SERVICES INITIAL EVALUATION MR#: [id number] Acct: [id number] Name: NADINE RG Rep #: [id number] : 1950 72 From: Giovanny Gomez DPT Referring Dr.: Dr. Quinn Melissa MD Status: RE G RCR Insurance: MEDICARE PART A B [employer] SR SUPPLEMENT INS Patient's Visit Information NADINE RG is a 72 year old F referred to Physical Therapy by Dr. Quinn Melissa MD with a diagnosis of R TKA. Date of Evaluation: 09/24/22 Physical Therapist: DEEPTI VirkT - Visit Plan Frequency: 2-3x /Week Duration: 6 Weeks Plan: Start with restoring ROM, add in pain/edema control. Progress gait and functional mobility. - Subjective Pt. is here today for her initial evaluation with diagnosis of R TKA. DOS: 09/24/22. Pt. arrives with FWW with reports of minimal pain. Pt. is pleased thus far. She has been doing her exercises at home. She still has bandage on and is to remove this weekend. Pt. reports no calf pain. No N/T, no difficulty breathing, no fever. 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 Pt. does have to be on her feet 8+ hours a few days per week. Pt. is sleeping well. She is taking meds as prescribed and wearing TEDs as prescribed. Pt. is hopeful to get back to all recreational and work activities without limitations. - Pain R knee Pain Intensity (Out of 10): 2 Pain Intensity Range: 0, 5 - Objective POSTURE: Pt. has great posture in stance. Equal wt. shift noted. Pt. uses FWW for stability. PALPATION: Pt. has increased edema in R LE (+3 cm at mid patella), +3cm at 4 inch above mid patella. Pt. has tenderness thorughout knee. No marked pitting edema. Pt. has negative homans sign. NEURO: normal throughout BLEs. Pt. is able to rise on heels and toes without limitations. ROM: R knee AROM 0-2-92deg. PROM 0-0-101deg. Pt. has normal HS length bilaterally without increase in symptoms. MMT: RLE: ankle 5/5 throughout; knee: ext 3#, flexion 5#; hip: flexion 5#, abd 3#, ext 4#. GAIT: Pt. ambulates with FWW with pretty good step length. She has a decrease in tempo as expected. Lacks slight knee extension during stance phase. Descent knee flexion during swing. STAIRS: Step to pattern with 2 HR. - Balance/Special Test Scores TUG Test Time Seconds: 33 WOMAC Total Score: 20 WOMAC Percentatge: 79.1700 - Goals Goal 1:: LTG: Pt. to be I with HEP. Goal Time Frame: 4-6 Weeks Goal 2:: STG: PT. to have increased R knee ROM to 0-0-120deg AROM. Goal Time Frame: 2-4 Weeks Goal 3:: LTG: PT. to have equal edema between B LEs. Goal Time Frame: 2-4 Weeks Goal 4:: LTG: Pt. to have increased RLE strength symmetrical to L side allowing for increased ability to complete all daily activities. Goal Time Frame: 4-6 Weeks Goal 5:: LTG: Pt. to ambulate without AD with normal gait pattern without increase in symptoms. Goal Time Frame: 4-6 Weeks Goal 6:: LTG: Pt. to negotiate 1 flight of stairs with 1 HR with reciprocal pattern without increase in symptoms. Goal Time Frame: 4-6 Weeks - Rehabilitation Potential Physical Therapy Diagnosis: Pt. has signs and symptoms consistent with R TKA, DOS: 09/24/22. Pt. has marked hypomobility, weakness, difficulty walking and would benefit from PT to work on the above limitations. Rehabilitation Potential: Excellent - Anticipated Interventions Patient/Client Instruction: Educate patient on: Condition, Plan of Care, Risk Factors, Benefits of Fitness Program For the Purpose of:: To improve decision making, To facilitate caregiver knowledge, To improve self management, To prevent re-injury, To improve ability to perform tasks related to life management, To improve tolerance to ADL's Therapeutic Exercise to Include: Strength training, Power training, Endurance training, Postural training, Flexibilty training, Neuromotor development, Passive ROM, Active ROM For the Purpose of:: To decrease pain, To decrease swelling/inflammation, To increase ROM, To improve nutrient delivery to tissue, To increase oxygenation perfusion, To improve muscle p erformance and motor function, To improve ability to perform ADL's, To increase tolerance to activity/condition/position, To improve performance and independence with ADL's, To decrease level of supervision to perform tasks, To improve ability of physical actions for home/community/work/leisure, To improve gait and locomotor functions Manual Therapy Techniques to Include: Mobilization, Passive ROM, Soft tissue mobilization For the Purpose of:: To decrease pain, To decrease swelling/inflammation, To increase ROM, To improve nutrient delivery to tissue Cryotherapy (ice pack, ice massage): Yes Vasopneumatic device: Yes For the Purpose of:: To decrease pain, To decrease swelling/inflammation, To increase ROM, To improve nutrient delivery to tissue, To increase oxygenation perfusion Thank you for the opportunity to evaluate your patient. For Medicare and Medicare HMO plans, please review the plan of care and approve it. It will need to be FAXED BACK to us at [phone] for Medicare purposes. For Medicare only, by signing this I certify the plan of care. Please let me know if there are questions or concerns regarding this plan of care. Physician Signature: D ate: <Electronically signed by Giovanny Gomez DPT> 09/29/22 0855 CC: JEAN Lopez; Dr. Quinn Melissa MD CLS Signed Herlinda Lopez CNP Work Phone: Start: 09-24-2022 End: 09-24-2022 Knee 1 or 2 Views Procedure Note: See Note; NOTES: [facility] Imaging Services [address] [place] [address] Knee 1 or 2 Views MR#: [id number] Acct: [id number] Name: NADINE RG Rep #: [id number] : 1950 F 72 From: Howard pacheco MD PCP: JEAN Figueroa Status: [facility] Study: Knee 1 or 2 Views Date of Exam: 09/24/22 Exam# [id number] Ordering Dr: Quinn Melissa MD STUDY: X-RAY - RIGHT KNEE REASON FOR EXAM: Female, 72 years old. tka -- in PACU TECHNIQUE: 2 view(s) of the knee. COMPARISON: None. Findings: There is a recent total knee arthroplasty. The femoral and tibial components appear in satisfactory position. There has been patellar resurfacing. There is soft tissue air related to the recent surgery. The visualized femoral, tibial, and fibular shafts are unremarkable. RAD/Knee 1 or 2 Views IMPRESSION: Satisfactory appearance of a total knee arthroplasty. Electronically Signed: Howard Steel MD at 17:37 EDT , CC: JEAN Lopez; Dr. Quinn Melissa MD Aircraft Engine Dismantler: Signed Herlinda Lopez CNP Work Phone: Start: 09-24-2022 End: 09-24-2022 Operative Report Procedure Note: See Note; NOTES: [facility] Medical Records Department [address] [place] [address] Operative Report 09/24/22 0733 MR#: [id number] Acct: [id number] Name: NADINE RG Rep #: [id number] : 1950 72 From: Quinn Melissa MD PCP: Herlinda Lopez NP-C Status:[facility] Location: [place] [address] Report of Operation Date of Procedure: 09/24/22 Pre-Operative Diagnosis: Right knee primary osteoarthritis Post-Operative Diagnosis: Right knee primary osteoarthritis Surgery/Procedure Performed:: Right minimally invasive robotic total knee replacement Description of Surgical Findings:: Stable knee with good patella tracking Surgeon: Quinn Melissa mantel craftsman: Tj Owusu Type of Anesthesia: Spinal Anesthesiologist: Jayson Dent Special Medications: 2 g Ancef, 1 g TXA at incision, 1 g TXA closure, 10 mg Decadron, joint cocktail (5 mg Duramorph, 30 mL of 0.5% Ropivicaine, 1000 units of epinephrine, 30 mg of Toradol) Specimen's removed: Bony cuts Estimated Blood Loss (mL): 50 Fluids Replaced: 1000 ML Description of Procedure: Implants used: 1. Barron size 3 triathlon cruciate retaining distal femoral press-fit component 2. Mallory size 3 press-fit tritanium tibial baseplate 3. Barron X3 9 mm CS polyethylene 4. Barron X3 32 mm press-fit asymmetric patella Brief history operative indications: 72-year-old F with history of right knee osteoarthritis with radiographic findings with loss of joint space, osteophyte formation and subchondral sclerosis. Failed conservative measures as mentioned in the H P. Discussion of total knee arthroplasty as well as risk and benefits were discussed the patient including but not limited to blood loss, DVTs, PEs, neurovascular damage, general risk of anesthesia including loss of life, and stiffness or instability were discussed with patient. Patient demonstrated understanding and was able to sign informed consent. Procedure: On the date of procedure patient's right lower extremity was marked in the preoperative area. The patient was then taken back to the operating room where the patient was placed on the table in the supine position. All bony prominences were identified a well-padded. Anesthesia assumed control of the C-spine and airway and remained controlled throughout the remainder of the procedure. A tourniquet was placed on the right upper thigh and the leg was prepped in a sterile fashion. The surgeon then scrubbed at this time .Upon reentering the room right lower extremity was draped in a standard orthopedic fashion. A timeout was then called and everyone agreed upon the side, the site, the procedure to be performed, patient's identity and antibiotics given. Esmarch bandage was used to exsanguinate the extremity and the tourniquet was placed up to 250 mmHg with the knee in flexion. A midline skin incision was made and sharp dissection was taken down through skin subcutaneous tissue and fat. The standard medial parapatellar incision was made and the patella was subluxed laterally. An Appropriate deep MCL release was done and the fat pad was resected. Our attention was then directed to the patella. The patella was everted and a flat resection was made. The knee was then flexed up in 2 femoral pins were placed inside the incision and 2 tibial pins were placed outside the incision in the medial tibia bicortically. Once this was completed the 2 checkpoints in the femur and tibia were placed. Knee was then flexed up and the bony landmarks were registered. Once this was completed knee was taken through range of motion and manually stressed allowing us to a plan for an appropriate tibial cut. The robotic arm was brought into the field sterilely and checkpoint and saw were registered. Based on the patient's deformity the tibial cut was made in 3 degrees of varus. At this time the tensioner was then placed in the joint and ligament tension was checked at 90 degrees and full extension. Based on the patient's ligamentous tension appropriate adjustments were made to the operative plan and ligament releases were done. Once we were happy with our operative plan with balanced flexion and extension gaps our attention was directed to the femur. The robot was brought into the field sterilely and registered. Posterior condylar cuts, anterior chamfer cuts and anterior cuts were appropriately made for a size 3 femur. When these were completed the saws were switched out in the distal femoral and posterior chamfer cuts were made. Protecting the soft tissue throughout this time. A size 3 tibial base plate was selected. the knee was flexed to 90 degrees and the soft tissues and posterior osteophytes were removed from the joint. 40 cc of the periarticular injection was injected into the posterior medial corner of the joint. The appropriate trials were then placed on the femur and tibia. A trial polyethylene was trialed to ensure proper balancing and stability of the knee. The appropriate tibial internal rotation was then marked with a bovie. Our attention was then directed to the patella. The lug holes were drilled and the patella trial was placed. Patellar tracking was checked and deemed appropriate. Once we were happy lug holes were drilled for the femur and trial components were removed. the tibia was subluxed and pinned into place and the keel was punched and drilled appropriately. Final components were verified and opened, and cement was mixed in a vacuum. Barron Simplex cement was used. The wound was copiously irrigated with normal saline. When the cement was ready the components were impacted into place starting with the tibia, femur and finally cementing the patella. The trial poly component was placed and the knee was placed in full extension. All excess cement was removed in the process. Once the cement had cured the tracking, alignment and balance were verified and a size 9 mm CS polyethylene component was placed. Once the final components were placed a 3-minute dilute Betadine lavage was performed followed by an Irrisept lavage was performed and the wound was copiously irrigated with normal saline solution and the periarticular injection was given. The wound was closed in a layer judd fashion using #1 vicryl interrupted sutures for the arthrotomy, 2-0 interrupted Vicryl suture for the subcuticular layer and gerri for final skin closure. A sterile compressive dressing was then placed. The patient was then awakened from anesthesia, transferred to the [place] and transferred to the PACU for recovery. Post op plan DVT ppx: ASA 81mg BID, thigh high compression stockings Follow up: in office in 2 weeks for wound check PT: to start POD #0 at hospital, outpatient PT should be arranged. My physician assistant to the ceo was a vital part of this case. He was important in appropriate retraction during the case, and protection of soft tissues during bony cuts. His intimate knowledge of the case and my steps aided in safe and expedient completion of the procedure as well as appropriate position of the leg during the case. He was also vital in assisting with closure under my direct supervision. Due to the complexity of this case robotic arm was used to assist in the surgery to improve accuracy and clinical outcomes. Complications No intraoperative complications Admit VTE Documentation VTE Present on Admission: No VTE Mechan Device Prophylaxis: SCD's and Thigh High ANISHA Hose VTE Pharm Prophylaxis ordered?: Yes 09/24/22 0903 <Electronically signed by Quinn Melissa MD> Cosigner Signature (if applicable): CC: NUTRITION TEACHERAislinn Lopez; Dr. Quinn Melissa MD Signed Herlinda Lopez CNP Work Phone: Start: 09-12-2022 End: 09-12-2022 Extremity Lower without Contra Procedure Note: See Note; NOTES: [facility] Imaging Services [address] [place] [address] Extremity Lower without Contra MR#: [id number] Acct: [id number] Name: NADINE RG Rep #: [id number] : 1950 F 72 From: Jung cespedes MD PCP: Herlinda Lopez, NUTRITION TEACHER-C Status: REG CLI Study: Extremity Lower without Contra Date of Exam: 0 09/12/22 Exam# [id number] Ordering Dr: Quinn Melissa MD CT RIGHT LOWER EXTREMITY WITH 3-D IMAGING CLINICAL INDICATION: TOMEKA. Finding for right total knee replacement. Prior left hip replacement. TECHNIQUE: Axial CT images of the RIGHT lower extremity was performed without IV contrast material. Coronal and sagittal reformats were provided. RADIATION DOSAGE (If Supplied By Facility): CTDIvol = ( 18.76 ) mGy, DLP = ( 1149.41 ) mGycm COMPARISON: FINDINGS: Bones: Imaging of the right hip joint was obtained. There is mild degree of joint space narrowing. Degenerative spur formation is seen along the superior lateral aspect of the right femoral head. Imaging of the knee joint was performed. There is a marked degree of joint space narrowing involving the medial compartment of knee joint with the tiny subchondral cystic changes. Degenerative spur formation is seen in the medial and lateral femoral condyles as well as the lateral tibial plateau. No significant joint effusion is seen. Imaging of the ankle joint was obtained as well. No significant abnormality is seen. Soft Tissues: The deep soft tissue structures are unremarkable. The superficial soft tissues are unremarkable without evidence of edema, hematoma, or foreign body. CT/Extremity Lower without Contra IMPRESSION: Marked degree of joint space narrowing involving the medial compartment of the knee joint with minimal subcutaneous chondral cystic changes in the medial compartment. Electronically Signed: Jung Sarmiento MD at 15:12 EDT , CC: JEAN Lopez; Dr. Quinn Melissa MD Aircraft Engine Dismantler: Signed Herlinda Lopez CNP Work Phone: Start: 09-08-2022 End: 09-24-2022 History and Physical Exam Procedure Note: See Note; NOTES: [facility] Medical Records Department [address] [place] [address] History Physical Exam 09/08/22 1302 MR#: [id number] Acct: [id number] Name: NADINE RG Rep #: [id number] : 1950 72 From: Tj ANGEL PA-C PCP: JEAN Figueroa Status:PRE IN [facility] History and Physical History and Physical??? Patient Name: Nadine Rg : 1950 From:??? TJ OWUSU PA-C??? DATE OF SURGERY:??? 09/24/2022 SCHEDULED PROCEDURE:??? Right total knee arthroplasty HISTORY OF PRESENT ILLNESS: Preoperative history and physical exam was performed on September 08, 2022.??? This is a 72-year-old female who has had ongoing pain for years in bilateral knees.??? Her right knee is worse than the left.??? Her pain can reach 7/10 with activities.??? Pain is increased with going up and down stairs, walking, standing.??? Pain has been intermittent, aching and sore.??? Pain is located over the medial part of the knee.??? She does have start up pain.??? Patient states her pain has been affecting all activities in which she has had to modify her activities.??? She has stumbled secondary to the knee pain.??? Patient has tried rest, ice, heat, elevation with minimal relief.??? She has tried previous corticosteroid injections, Synvisc injections years ago without relief, aquatic therapy with minimal relief.??? She has tried oral medications including meloxicam and Tylenol.??? She has also used CBD ointment.??? She has had previous to corticosteroid injections.??? Denies past history of surgery on the right knee.??? She denies past history of DVT or pulmonary embolism.??? Patient's listed medical problem is hypercholesterolemia.??? We are obtaining surgical clearance from primary care provider Dr. Lopez.??? After failing conservative measures and discussing all treatment options with Dr. Quinn Melissa, the patient does wish to proceed with a right total knee arthroplasty. REVIEW OF SYSTEMS: Review Of Systems: Constitutional: Denies change in appetite, fever and weight change. Cardiovasular: Denies chest pain, heart murmur and irregular heartbeat. Respiratory: Denies cough, pneumonia, shortness of breath, tuberculosis and wheezing. Gastrointestinal: Denies constipation, diarrhea, heartburn, nausea, rectal itching, bloody stools and vomiting. Genitourinary: Denies incontinence. Musculoskeletal: Reports gait disturbance and pain, but denies leg swelling, trouble walking and weakness. Skin: Denies Raynaud's, history of shingles and tattoo. Neurological: Denies ambulatory dysfunction, dizziness, numbness/tingling and tremor. Psychiatric: Denies anxiety, insomnia and stress. Hematologic/Lymphatic: Denies anemia, bleeding/bruising tendency and past transfusion. Reviewed, no changes. PAST MEDICAL HISTORY: Advance Care Plan: Other Directive, LIVING WILL Effective Date: 04/29/2021 Other Directive, POA Effective Date: 04/29/2021 Past Medical History: Medical Problems: Arthritis, Hypercholesterolemia Accidents: RT Wrist FX - (05/2008) Surgical Hx: Appendectomy - (1977) Cataracts - (2012) Hip Replacement Lt - (2007) Anesthesia Complications: None Assistive Devices: None Reviewed, no changes. 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 Personal Habits:??? Cigarette Use: Never Smoked Cigarettes.Smokeless Tobacco: Never Used Smokeless Tobacco.E-Cigarette Use: Never used.Alcohol: Denies use.Drug Use: Denies Use.Enjoy Exercising: Exercises 1-3 X/Week. Reviewed, no changes. VITALS: Ht: 61 Wt: 157lb Wt k.215 BMI: 29.7 BP: 122/78 Pulse: 66 Resp: 20 T: 97.9 T: 36.6C Pain Level: 0 O2SatR: 99 ALLERGIES: No Known Drug Allergy??? MEDICATIONS: Zofran 4 mg one by mouth every 8 as needed nausea, Famotidine 20 mg 1 by mouth every day, Oxycodone HCL 5 mg 1-2 tab by mouth every 4 hours, Meloxicam 15 mg 1 by mouth every day, Advil 200 mg 2po qday PRN, T-Relief CBD+13 cbd+13 as needed, Coq10 100 mg qd, Pravastatin Sodium 40 mg 1 PO daily, Vitamin D3 25 mcg (1000 Ut) 1 a day PRE-OP EXAM:??? General appearance:NORMAL? Other: Eyes: Conjunctivae and lids: NORMAL??? Pupils: ERR Ears, Nose, Mouth, and Throat: NORMAL??? Other: Inspection of lips, teeth and gums: NORMAL?Other: Neck: Examination of neck: no masses noted. Respiratory: Assessment of respiratory effort: NORMAL?Other: ?Auscultation of lungs: clear to auscultation no wheezes, rhonchi or rales. Cardiovascular:??? Auscultation of heart: regular rate and rhythm, no murmurs, gallops or rubs. PHYSICAL EXAMINATION: Patient does walk with an antalgic gait.??? Right knee has tenderness to palpation along the medial joint line.??? She has moderate effusion.??? She has correctable varus alignment.??? Range of motion: Lacks 5 full extension to 120 flexion.??? She has 3 mm laxity with MCL testing.??? Stable to anterior/posterior drawer exam. 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 IMPRESSION: 1.??? Severe right knee osteoarthritis with varus alignment 2.??? Left knee osteoarthritis 3.??? Hypercholesterolemia 4.??? Overactive bladder PLAN: Dr. Quinn Melissa did discuss and review with the patient all treatment options including surgical versus nonsurgical options.??? Patient does wish to proceed with the above-stated procedure.??? Potential risks, benefits, and complications of the procedure were discussed in detail including but not limited to , infection, nerve and blood vessel damage, persistent pain, numbness, tingling, paresthesias, blood clot, pulmonary embolism, and requirement for possible further surgery.??? The patient expressed full understanding and has no further questions for the doctor.??? Patient does agree to proceed with the above-stated procedure and has signed the surgery consent form. POST-OP MEDICATION PLAN: Pain Medications: Patient was given the following medications at the preoperative visit: Oxycodone, Tylenol and will resume her meloxicam postoperatively. DVT Prophylaxis: Aspirin 81 mg twice daily for 4 weeks postoperatively.??? Denies past history of DVT or pulmonary embolism This dictation was created using voice recognition software. Phonetic and/or grammatical errors may exist. ___??? I have re-examined the patient.??? There are no clinical changes since date of exam. ___??? See progress notes for changes. ___??? Dictated on admission Date: ?Time: Signature: 09/08/22 1303 <Electronically signed by Tj ANGEL PA-C> Cosigner Signature (if applicable): CC: JEAN Lopez; JEANETTE Owusu Signed Herlinda Lopez [facility] Work Phone: Start: 06-23-2022 End: 06-23-2022 SCRN MAMM (CAD)W/SAMANTHA BILAT Procedure Note: See Note; NOTES: [facility] Imaging Services [address] [place] [address] SCRN MAMM (CAD)W/SAMANTHA BILAT MR#: [id number] Acct: [id number] Name: NADINE RG Rep #: [id number] : 1950 F 71 From: Jung cespedes MD PCP: JEAN Figueroa Status: [facility] Study: SCRN MAMM (CAD)W/SAMANTHA BILAT Date of Exam: 11/07 Exam# [id number] Ordering Dr: Herlinda Lopez MAMMOGRAPHY - BILATERAL SCREENING REASON FOR EXAM: Female, 71 years old. Routine annual screening examination. PERTINENT HISTORY: Aunt with breast cancer. TECHNIQUE: Digital bilateral breast samantha (3D mammographic acquisition) in the CC and MLO projections. 2-D mediolateral oblique (MLO) and craniocaudad (CC) views of both breasts were obtained. CAD: Full Field Digital Mammography with Computer Added Detection was performed. COMPARISON: Comparison is made with prior study dated 01/11/2020 and 08/24/2018 FINDINGS: Breast Composition: The breasts are heterogeneously dense, which may obscure small masses. There are no dominant masses or suspicious calcifications. Stable benign-appearing bilateral axillary lymph nodes. No other significant abnormalities are identified. There has been no significant change since the prior study. BI/SCRN MAMM (CAD)W/SAMANTHA BILAT IMPRESSION: Stable bilateral screening mammogram. Yearly follow-up mammogram recommended. (A) ASSESSMENT CATEGORY: BIRADS Category 2: Benign. A letter regarding these results will be sent to the patient by the facility within 30 days. Approximately 10% of breast cancers are not detected by mammography. A normal mammogram should not delay biopsy of a clinically suspicious abnormality. [id number] Electronically Signed: Jung Sarmiento MD at 14:35 EST , CC: Herlinda Lopez NUTRITION TEACHER; NUTRITION TEACHER-C Herlinda Lopez Aircraft Engine Dismantler: Signed Herlinda Lopez USED [employer] Work Phone: Start: 06-14-2021 End: 06-14-2021 PT D/C Summary (1) Procedure Note: See Note; NOTES: [facility] Physical Therapy [facility] [address] [place] [address] / REHABILITATION SERVICES DISCHARGE SUMMARY MR#: [id number] Acct: [id number] Name: NADINE RG Rep #: [id number] : 1950 70 From: Saskia Henry DPT Referring Dr.: Dr. Quinn Melissa MD Status: RE G RCR Insurance: MEDICARE PART A B AETNA SR SUPPLEMENT INS It has been my pleasure to treat NADINE RG referred by Dr. Quinn Melissa MD, with the diagnosis of Left Knee Pain for a total of 13 visit(s). Discharge Date: Please see the following information for a summary of their discharge status. Subjective: Patient reports that she worked for 10 hours last week and it was to much. She was getting better but feels like that was a set back. Feels the injection is wearing off. She felt like she as 99% better but now its tender again and 80%. LLE Pain Intensity (Out of 10): 3 % Improvement: 80 Objective/Function: Posture: good throughout in hard back chair. Gait: no deviation noted. Stairs: asc/desc 8 stairs recip- can do with no HR but prefers single HR. HR/TR: able with UE A. SLS: 8 sec then LOB with focus on pelvic stabilization. Sensation: WNL to gross touch bilateral LE. ROM: 0-130 degrees without pain. Strength: core: fair plus, Hip: 4+/5 throughout, Knee: 5/5, Ankle: 5/5. Flex: HS: mod, Gastroc: mod Solues: moderate. Palpation: not tender to touch Goal 1:: Patient will be I with HEP and progression Goal Progress: Goal Met Goal 2:: Patient will asc/desc 8 stairs recip with 1 HR and good control Goal Progress: Goal Met Goal 3:: Patient will ambulate >300 feet with a normalized gait pattern Goal Progress: Goal Met Plan: Discharge to [facility]. If there are questions or concerns regarding this patient's physical therapy, please feel free to call me at [phone]. Thank you for the referral of this patient. Sincerely, Saskia Henry, DPT Balance/Gait/Functional tests - Balance/Special Test Scores Lower Extremity Functional Score: 75 <Electronically signed by Saskia Henry DPT> 06/14/21 1148 CC: JEAN Ramirez; Dr. Quinn Melissa MD ELR Signed Kaylynn Ramirez Start: 05-27-2021 End: 05-27-2021 Re-Evaluation - PT (1) Procedure Note: See Note; NOTES: [facility] Physical Therapy [address] [place] [address] / REEVALUATION / MEDICARE RECERTIFICATION PHYSICAL THERAPY MR#: [id number] Acct: [id number] Name: NADINE RG Rep #: [id number] : 1950 70 From: Saskia TATUMT Referring Dr.: Dr. Quinn Melissa MD Status:REG RCR Insurance: MEDICARE PART A B AETNA SR SUPPLEMENT INS Dr. Quinn Melissa MD, It has been my pleasure to treat NADINE RG over the last 9 visits for Left Knee Pain. Please see the progress note below for an update on the physical therapy plan of care! Subjective: Patient reports that she is 200% better. She is not having any pain in it- only soreness from working out. She is back to her land exercises and is working without pain. [place] own [place]. Would like to progress to land exercises to continue to progress. Objective/Function: Posture: good throughout in hard back chair. Gait: no deviation noted. Stairs: asc/desc 8 stairs recip- can do with no HR but prefers single HR. HR/TR: able with UE A. SLS: 8 sec then LOB with focus on pelvic stabilization. Sensation: WNL to gross touch bilateral LE. ROM: 0-130 degrees without pain. Strength: core: fair plus, Hip: 4+/5 throughout, Knee: 5/5, Ankle: 5/5. Flex: HS: mod, Gastroc: mod Solues: moderate. Palpation: not tender to touch Plan Plan: 05/27: Progression to land based program- focus on gym home exercise program and balance. Balance/Gait/Functional tests - Balance/Special Test Scores Lower Extremity Functional Score: 76 Goals Goal 1:: Patient will be I with HEP and progression Goal Time Frame: 4-6 Weeks Goal Progress: Progressing Goal 2:: Patient will asc/desc 8 stairs recip with 1 HR and good control Goal Time Frame: 4-6 Weeks Goal Progress: Goal Met Goal 3:: Patient will ambulate >300 feet with a normalized gait pattern Goal Time Frame: 4-6 Weeks Goal Progress: Goal Met Anticipated Interventions Patient/Client Instruction: Educate patient on: Benefits of Fitness Program Therapeutic Exercise to Include: Strength training, Endurance training, Balance training, Coordination, Agility training, Body mechanics, Postural training, Flexibilty training, Gait and locomotor training, Neuromotor development, In an aquatic setting , Passive ROM, Active ROM, Dynamic Lumbar Stabilization, Mabel Exercises, Scapular Strength/Stabilization For the Purpose of:: To improve muscle performance and motor function Please do not hesitate to contact me at [phone] by phone or if you have questions or concerns regarding this new plan of care! Sincerely, Saskia Henry DPT <Electronically signed by Saskia Henry DPT> 05/27/21 0956 CC: JEAN Ramirez; Dr. Quinn Melissa MD CARLOSR Signed For Medicare only, by signing this I certify the plan of care. Physicians Signature Date Kaylynn Ramirez Start: 05-02-2021 End: 05-02-2021 Inital Evaluation (1) - PT Comments: See Note; NOTES: [facility] Physical Therapy [facility] [address] [place] [address] / REHABILITATION SERVICES INITIAL EVALUATION MR#: [id number] Acct: [id number] Name: NADINE RG Rep #: [id number] : 1950 70 From: Saskia Henry DPT Referring Dr.: Dr. Quinn Melissa MD Status: RE G RCR Insurance: MEDICARE PART A B AETNA SR SUPPLEMENT INS Patient's Visit Information NADINE RG is a 70 year old F referred to Physical Therapy by Dr. Quinn Melissa MD with a diagnosis of Left Knee Pain. Date of Evaluation: 05/02/21 Physical Therapist: Saskia Henry DPT - Visit Plan Frequency: 2x /Week Duration: 4 Weeks Plan: Aquatic Therapy- focus on LE and core strength/stabilization with functional mobility. - Subjective In February she did a workout- walking, knee friendly lifting, core- then a few days later the left knee started to hurt-progressively worse- unable to put weight on her leg. Went and saw Dr. Melissa- started her on Meloxicam and did an injection. Reports she has an MCL sprain. Pain is located on the medial side of the knee joint- was radiating down to the ankle- but is not radiating at this point. Describes the pain as dull and achy. It was hard to put weight on it but that is getting better. Worst in last week: 3/10 Agg: being up, walking around, sit for a while and go to get up, stairs. Eases: ice, Advil, rest. Best: 0/10 after the injection. No N/T in the left foot. Workout: daily- walking work out for women over 50 years old. Was coming in swimming at in the morning but not currently doing that again. 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 Did have x-rays but no MRI. Sleep: not disturbed. PMHx: no significant changes since urgent care visit 04/21/21- Left THR - Objective Posture: FH, RS, can correct with verbal and tactile cues but does not maintain. Gait: decreased stance on the left LE with decreased heel/toe pattern. Stairs: asc recip with 1 HR- desc recip with poor control -1 HR. HR/TR: able with UE A. SLS: 5 sec then LOB. Sensation: WNL to gross touch bilateral LE. ROM: 0-130 degrees without pain. Strength: core: fair, Hip: 4/5 throughout, Knee: 4+/5, Ankle: 5/5. No pain with quad set- SLR: mild lag cueing with quad set improved without lag. Flex: HS: severe, Gastroc: severe Solues: moderate. Palpation: medial joint line - Balance/Special Test Scores Lower Extremity Functional Score: 70 - Goals Goal 1:: Patient will be I with HEP and progression Goal Time Frame: 4-6 Weeks Goal 2:: Patient will asc/desc 8 stairs recip with 1 HR and good control Goal Time Frame: 4-6 Weeks Goal 3:: Patient will ambulate >300 feet with a normalized gait pattern Goal Time Frame: 4-6 Weeks - Rehabilitation Potential Physical Therapy Diagnosis: Patient presents with hypomobility- she has decreased LE and core strength/stabilization, flex and muscular endurance leading to abnormal gait and decreased ability to perform ADL's. Rehabilitation Potential: Good - Anticipated Interventions Patient/Client Instruction: Educate patient on: Benefits of Fitness Program Therapeutic Exercise to Include: Strength training, Endurance training, Balance training, Coordination, Agility training, Body mechanics, Postural training, Flexibilty training, Gait and lo comotor training, Neuromotor development, In an aquatic setting , Passive ROM, Active ROM, Dynamic Lumbar Stabilization, Mabel Exercises, Scapular Strength/Stabilization For the Purpose of:: To improve muscle performance and motor function Thank you for the opportunity to evaluate your patient. For Medicare and Medicare HMO plans, please review the plan of care and approve it. It will need to be FAXED BACK to us at [phone] for Medicare purposes. For Medicare only, by signing this I certify the plan of care. Please let me know if there are questions or concerns regarding this plan of care. Physician Signature: D ate: <Electronically signed by Saskia Henry DPT> 05/02/21 0856 CC: JEAN Ramirez; Dr. Quinn Melissa MD ELR Signed Kaylynn Ramirez US[employer] Work Phone: Start: 04-21-2021 End: 04-21-2021 Urgent Care Visit Report Comments: See Note; NOTES: [facility] [address] [place] [address] [address] [place] [id number] OFFICE VISIT Date of Service: 04/21/21 MR#: [id number] Acct: [id number] Name: NADINE RG Rep #: [id number] : 1950 Provider: JEAN vital Age/Sex: 70/F Location: [facility] Status: Signed Intake Vital Signs 04/21/21 09:13 Height 5 ft 0.5 in Weight: 165 lb BMI 31.6 BP 126/80 H Blood Pressure Location Lt brachial Position Sitting Respiration 14 Pulse 63 Pulse Source Monitor Temp 98.1 F Temp Source Temporal Pulse Oximetry (%) 98 Oxygen Delivery Method room air Intake Visit Reasons: COVID TEST / EXPOSURE Chief Complaint: exposure to covid Is patient in pain?: No Allergies No Known Allergies Allergy (Unverified 04/21/21 09:13) Medications simvastatin 20 mg tablet 20 mg PO QPM 09/24/17 [History Confirmed 04/21/21] [facility] Medical History Bone fracture Cataracts, bilateral High cholesterol Osteoarthritis Pre-diabetes Surgical History History of appendectomy History of cataract removal with insertion of prosthetic lens History of total hip replacement Family History Mother A-fib Heart disease Hypertension High cholesterol Father Arthritis Pre-diabetes Hypertension High cholesterol Aunt Breast cancer Chronic lymphocytic leukemia Uncle Chronic lymphocytic leukemia Social History Smoking Status: Never smoker alcohol intake: current substance use type: does not use additional social history: DOES USE ASPIRIN DOES USE IBUPROFEN HPI HPI Chief Complaint: exposure to covid Details: NADINE RG, is a 70 F who presents to the office today for covid test, exposure on , pt is fully vaccinated against covid and flu Fatigue present, no fever, feels warm, congestion starting, symptoms started yesterday ROS Const Constitutional: Positive for fatigue; No fever(s) or headache(s) Eyes Eyes: No eye pain ENT ENT: Positive for nasal discharge; No ear or mastoid pain, nasal congestion, sinus pressure, headache(s) or sore throat Resp Respiratory: No cough or shortness of breath Cardio Cardiology: No chest pain at rest or shortness of breath Gastro GI: No abdominal pain, diarrhea or vomiting Musc Musculoskeletal: No other (aches) Neuro Neurology: No headache(s) Endo Endocrine: Positive for fatigue Exam Const General: cooperative, healthy appearing, comfortable and no acute distress Nutritional Appearance: average body habitus and well nourished Orientation: alert, awake and oriented x3 HENMT Head: normal to inspection Ears: hearing grossly normal bilaterally and TM's normal bilaterally Nose: external nose normal, nasal mucous membranes and turbinates normal and nasal discharge clear Eyes Eyelids: eyelids normal Conjunctivae: conjunctivae normal Sclera: sclerae normal Cornea: corneas normal Neck Lymphatic: no lymphadenopathy noted Resp Effort Inspection: normal respiratory effort, able to speak in complete sentences, symmetric chest movement and no cough Auscultation: Bilateral: Clear to Auscultation Cardio Rate: regular rate Rhythm: regular rhythm Heart Sounds: S1 normal and S2 normal Skin General: no rashes or lesions noted Neuro General: patient alert, patient awake and patient oriented x3 Cognition: normal cognition Speech: speech normal Gait: normal gait Psych Affect: normal affect Speech and Movement: speech and movement normal Attitude: cooperative Thought Process: normal Coding Level of Care Code Off vis,new,level 3 Diagnoses Common cold J00 Exposure to COVID-19 virus Z20.822 Assessment and Plan Assessment and Plan (1) Common cold: Status: Acute (2) Exposure to COVID-19 virus: Status: Acute Plan - Ame Philip NP-C: Covid test negative, recommend rest, increase fluids, supportive care, follow-up with PCP if no improvement within 3 to 4 days. 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 Imaging Services [address] [place] [id number] SCREEN MAMM (CAD) W/SAMANTHA BILAT MR#: [id number] Acct: [id number] Name: NADINE RG Rep #: [id number] : 1950 F 69 From: Jung cespedes MD PCP: JEAN Nicolas Status: REG CLI Study: SCREEN MAMM (CAD) W/SAMANTHA BILAT Date of Exam: 0 01/11/20 Exam# [id number] Ordering Dr: Kaylynn Ramirez MAMMOGRAPHY - BILATERAL SCREENING REASON FOR EXAM: Female, 69 years old. Routine annual screening examination. PERTINENT HISTORY: Aunt with breast cancer. TECHNIQUE: Digital bilateral breast samantha (3D mammographic acquisition) in the CC and MLO projections. 2-D mediolateral oblique (MLO) and craniocaudad (CC) views of both breasts were obtained. CAD: Full Field Digital Mammography with Computer Added Detection was performed. COMPARISON: Comparison is made with prior study dated 08/24/2018. FINDINGS: Breast Composition: The breasts are heterogeneously dense, which may obscure small masses. There are no dominant masses or suspicious calcifications. Stable benign-appearing bilateral axillary lymph nodes. No other significant abnormalities are identified. There has been no significant change since the prior study. BI/SCREEN MAMM (CAD) W/SAMANTHA BILAT IMPRESSION: Stable bilateral screening mammogram. Yearly follow-up mammogram recommended. (A) ASSESSMENT CATEGORY: BIRADS Category 2: Benign. A letter regarding these results will be sent to the patient by the facility within 30 days. Approximately 10% of breast cancers are not detected by mammography. A normal mammogram should not delay biopsy of a clinically suspicious abnormality. [id number] Electronically Signed: Jung Sarmiento, at 8:03 EDT , Service support , CC: JEAN Ramirez Aircraft Engine Dismantler: Signed Kaylynn Ramirez Work Phone: Start: 12-01-2018 End: 12-01-[address] w/CCTA Comments: See Note; NOTES: [facility] Imaging Services [address] [place] [address] w/CCTA MR#: [id number] Acct: [id number] Name: NADINE RG Rep #: [id number] : 1950 F 68 From: Vicente Bonilla MD PCP: Kaylynn Ramirez NP Status: REG REF Study: Limited Chest CT w/CCTA Date of Exam: 12/01/18 Exam# [id number] Ordering Dr: Rebel Dudley MD HISTORY: HIGH CHOLESTEROL. PROMO. over read calcium scoring EXAMINATION: CT Heart Quantitative coronary calcium W/O contrast TECHNIQUE: Helically acquired images were obtained of the chest. A radiation dose optimization technique was used for this scan. IV Contrast dosage and agent: None. COMPARISON: None FINDINGS: UPPER ABDOMEN: No acute pathology. Incidental small cyst left lobe of liver. HEART AND PERICARDIUM: Heart size is normal. There is no pericardial effusion. Coronary artery atherosclerosis. Please see separate report of calcium score. VESSELS: Thoracic aorta is not dilated. MEDIASTINUM AND SARIAH: There is no mediastinal or hilar adenopathy. Esophagus is unremarkable. There is no hiatal hernia. OTHER SOFT TISSUES: Included thyroid gland is unremarkable. There is no axillary, supraclavicular or lower cervical adenopathy. LUNGS AND LARGE AIRWAYS: Clear. No pneumothorax. PLEURA: Unremarkable. No pleural effusion or thickening. BONES: No suspicious lytic or blastic abnormality observed. CT/Limited Chest CT w/CCTA IMPRESSION: No concerning findings. Individualized dose optimization techniques were used for this CT. at 1526 Reported and signed by: Vicente Bonilla MD Electronically Signed: Vicente Bonilla, at 15:24 EDT Tel , Service support , CC: BANDAR Ramirez; Rebel Dudley MD Aircraft Engine Dismantler: Signed Kaylynn Ramirez Start: 08-24-2018 End: 08-25-2018 Dexa Bone Density Study Comments: See Note; NOTES: [facility] Imaging Services [address] [place] [address] Dexa Bone Density Study MR#: [id number] Acct: [id number] Name: NADINE RG Rep #: [id number] : 1950 F 68 From: Jung Sarmiento MD PCP: Kaylynn Ramirez NP Status: REG CLI Study: Dexa Bone Density Study Date of Exam: 08/24/18 Exam# [id number] Ordering Dr: Kaylynn Ramirez NUTRITION TEACHER-C STUDY: DUAL ENERGY X-RAY ABSORPTIOMETRY / DXA REASON FOR EXAM: Female, 68 years old. The patient is postmenopausal. Loss of height. TECHNIQUE: Bone Mineral Density (BMD) measurements of lumbar spine and right hip were obtained. The patient status post left hip replacement. COMPARISON: None. FINDINGS: Lumbar Spine (L1-L4): g/cm2 (0.964) / T-score (-1.8) / Z-score (-0.2) Findings are suggestive of osteopenia with a moderate fracture risk. Right Femur Total: g/cm2 (0.826) / T-score (-1.4) / Z-score (-0.2) Right Femoral Neck: g/cm2 (0.777) / T-score (-1.9) / Z-score (-0.4) BD/Dexa Bone Density Study IMPRESSION: The patient is considered osteopenic as outlined below according to World Dariel Organization (WHO) criteria with a moderate fracture risk. Reference Information: The T-score is the number of standard deviations above or below the standard which is normal for young adults at their peak bone mineral density. The World Health Organization (WHO) interprets the T-scores as follows: Above -1 Normal bone density Between -1 and -2.5 Osteopenia Equal to / or below -2.5 Osteoporosis As a practical clinical guideline, osteopenia may be graded as follows: Mild -1 through -1.5 Moderate -1.6 through -2.0 Severe -2.1 through -2.4 The Z-score is the number of standard deviations above or below age-matched controls. A Z-score of less than -1.5 would be considered abnormal. References: 1. NIH Osteoporosis and Related Bone Diseases http://www.osteo.org 2. International Society for Clinical Densitometry http://www.iscd.org 3. National Osteoporosis Foundation http://www.nof.org Electronically Signed: Jung Sarmiento, at 13:06 EDT , Service support , CC: NUTRITION TEACHER Kaylynn Ramirez Aircraft Engine Dismantler: Signed Kathrine Ashley Work Phone: Start: 08-24-2018 End: 09-01-2018 SCREENING MAMM (CAD), BILAT Comments: See Note; NOTES: [facility] Imaging Services [address] [place] [address] SCREENING MAMM (CAD), BILAT MR#: [id number] Acct: [id number] Name: NADINE RG Rep #: [id number] : 1950 F 68 From: Jung Sarmiento MD PCP: Kaylynn Ramirez NP Status: REG CLI Study: SCREENING MAMM (CAD), BILAT Date of Exam: 08/24/18 Exam# [id number] Ordering Dr: Kaylynn Ramirez NUTRITION TEACHER-C MAMMOGRAPHY - BILATERAL SCREENING REASON FOR EXAM: Female, 68 years old. Routine annual screening examination. PERTINENT HISTORY: Aunt with breast cancer. TECHNIQUE: Digital bilateral breast samantha (3D mammographic acquisition) in the CC and MLO projections. 2-D mediolateral oblique (MLO) and craniocaudad (CC) views of both breasts were obtained. CAD: Full Field Digital Mammography with Computer Added Detection was performed. COMPARISON: Comparison is made with prior examination dated October 13, 2014. FINDINGS: Breast Composition: The breasts are heterogeneously dense, which may obscure small masses. There are no dominant masses or suspicious calcifications. No other significant abnormalities are identified. There has been no significant change since the prior study. BI/SCREENING MAMM (CAD), BILAT IMPRESSION: Stable bilateral screening mammogram. Yearly follow-up mammogram recommended. (A) ASSESSMENT CATEGORY: BIRADS Category 1: Negative. A letter regarding these results will be sent to the patient by the facility within 30 days. Approximately 10% of breast cancers are not detected by mammography. A normal mammogram should not delay biopsy of a clinically suspicious abnormality. [id number] Electronically Signed: Jung Sarmiento, at 14:59 EDT , Service support , CC: BANDAR Ramirez Aircraft Engine Dismantler: Signed Kaylynn Ramirez Work Phone: Start: 11-11-2017 End: 11-11-2017 Plastic Surgery Visit Report Comments: See Note; NOTES: [facility] [address] [place] [address] [place] [address] OFFICE VISIT Date of Service: 09/24/17 MR#: [id number] Acct: [id number] Name: NADINE RG Rep #: [id number] : 1950 Provider: Maksim Unger MD Age/Sex: 67/F Location[place] [facility] Status: Signed with Addenda ADDENDUM by Maksim Unger MD on 11/11/17 at 1856 Addendum entered and electronically signed by Maksim Unger MD 11/11/17 18:56: For the coding, there was no charge for the office visit since I performed an office procedure. So the charge will be for the procedure which in this case was 11[address]. Assessment AND Plan Problems 1. Neoplasm of unspecified behavior of bone, soft tissue, and skin D49.2 Medications New: 11/11/171855 <Electronically signed by Maksim Unger MD> Date Maksim Unger MD cc: Kaylynn Ramirez NUTRITION TEACHER * Signed Intake Vital Signs09/24/17 Height 5 ft 1 in 09/24/17 Weight: 162 lb 2 oz Intake Visit Reasons: procedure - shave excision left nasal dorsum near tip [employer] Machine Tender Required: No Accompanied by: None Is patient in pain?: No Allergies No Known Allergies Allergy (Unverified 09/24/17 13:34) Medications clindamycin HCl 300 mg capsule 300 mg PO TID #9 cap 09/24/17 [Rx Confirmed 09/24/17] metformin 500 mg/5 mL oral solution 500 mg PO BID 09/24/17 [History Confirmed 09/24/17] simvastatin 20 mg tablet 20 mg PO QPM 09/24/17 [History Confirmed 09/24/17] Is last menstrual period known: No Post menopausal: Yes Patient : No PFSH Medical History Bone fracture (Acute) Cataracts, bilateral (Acute) High cholesterol (Acute) Osteoarthritis (Acute) Pre-diabetes (Acute) Surgical History History of appendectomy (Acute) History of cataract removal with insertion of prosthetic lens (Acute) History of total hip replacement (Acute) Family History Mother A-fib Heart disease Hypertension High cholesterol Father Arthritis Pre-diabetes Hypertension High cholesterol Aunt Breast cancer Chronic lymphocytic leukemia Uncle Chronic lymphocytic leukemia Social History Smoking Status: Never smoker alcohol intake: current substance use type: does not use additional social history: DOES USE ASPIRIN DOES USE IBUPROFEN HPI procedure - shave excision left nasal dorsum near tip: Details: PROCEDURE NOTE Preop - 1 cm lesion left nasal dorsum near the tip. Postop - Same. Procedure - Intradermal excision 1 cm lesion left nasal dorsum near the tip. Surgeon - Cornel. Assist - None. Anesthesia - Local xylocaine with epinephrine. Complications - None. Drains - None. Specimen - Lesion left nasal dorsum near the tip to Pathology. Patient tolerated the procedure well. INDICATIONS Patient presented with a lesion left nasal dorsum near the tip that has increased in size over the last several months and has developed irregular borders and has become raised in configuration. She denied any bleeding. It was recommended to excise the lesion and send it to Pathology for analysis to rule out carcinoma. If carcinoma is present then further excision will be done with skin graft or skin flap reconstruction. Patient was informed of the risks and complications of the procedure including alternatives to surgery. These were discussed with the patient personally. Patient voices understanding and wishes to proceed. Some of the risks and complications were included in a form from the [employer]. SUMMARY OF CASE Patient was taken to procedure room and in supine position, her nose was prepped with betadine in a sterile fashion. Sterile drapes were used to cover her face. Using sterile gloves, I infiltrated the lesion left nasal dorsum near the tip with xylocaine with epinephrine. After waiting 5 minutes for the anesthetic to take effect, I excised the lesion left nasal dorsum near the tip in an intradermal fashion and sent the lesion to Pathology for analysis to rule out carcinoma. Hemostasis obtained with gentle pressure and silver nitrate chemical cauterization. Antibiotic ointment was applied. Patient tolerated the procedure well. She will be sent home on Cleocin antibiotics for 3 days. She will use Tylenol for pain. Followup one week for a wound check and to discuss the pathology report. Office Procedures Shave Excision Procedure performed by: Maksim Unger Informed consent given: Yes Consent signed: Yes Anesthesia: 1% lidocaine Saucerization: #15 blade Hemostasis: silver nitrate sticks Patient tolerated procedure: well Complications: No Assessment AND Plan Problems 1. Neoplasm of unspecified behavior of bone, soft tissue, and skin D49.2 Medications New: Coding Level of Care Code No Charge Diagnoses Neoplasm of unspecified behavior of bone, soft tissue, and skin D49.2 This was an office procedure shave excision. The CPT code for this procedure - 66613 11/11/17 1855 <Electronically signed by Maksim Unger MD> Date Maksim Unger MD Cosigner Signature: Date (if applicable) CC: Kaylynn Ramirez NUTRITION TEACHER Kaylynn Ramirez Appendectomy Sara Calhoun Plan of Treatment Date Care Activity Detail Author Start: 01-23-2023 Creatinine other source MICROALB;CREAT RATION, RAND UR (66531) [facility] Work Phone: Start: 01-13-2023 Procedure Education Eprescribed prescriptions (G8553) [facility]; [facility] Work Phone: Start: 09-03-2022 Blood count complete auto&auto difrntl wbc CBC, PLATELETS & AUT DIFF (85150) [facility]; [facility] Work Phone: Start: 09-03-2022 Comprehensive metabolic panel METABOLIC PANEL, COMPREHENSIVE (07316) [facility]; [facility] Work Phone: Start: 09-03-2022 Lipid panel LIPID PANEL (02671) : in 3-4 months [facility]; [facility] Work Phone: Start: 09-03-2022 Procedure Education Eprescribed prescriptions (G8553) [facility]; [facility] Work Phone: Start: 09-03-2022 Provider Instructions for Treatment Follow up in 4 months [facility]; [facility] Work Phone: Start: 06-20-2022 C-reactive protein high sensitivity C-REACT PROT HIGH SENS(hsCRP) (29076) [facility]; [facility] Work Phone: Start: 06-20-2022 Hemoglobin glycosylated a1c HGB A1C (88980) [facility]; [facility] Work Phone: Start: 06-20-2022 Lipid panel LIPID PANEL (25765) [facility]; [facility] Work Phone: Immunizations Immunization Date Immunization Notes Care Provider Kamran galarza 06-12-2020 COVID-19 (Moderna) Kaylynn Ramirez [facility] Work Phone: 04-17-2020 COVID-19 (Moderna) Kaylynn Ramirez [facility] Work Phone: 01-20-2020 zoster vaccine, live Kaylynn Ramirez [facility] Work Phone: 08-10-2019 pneumococcal conjuga te vaccine, 7 valent Kaylynn Ramirez [facility] Work Phone: 08-10-2019 zoster vaccine, live Kaylynn Ramirez [facility] Work Phone: 02-15-2018 influenza, seasonal, injectable Kaylynn Ramirez [facility] Work Phone: 10-17-2015 TB Skin Test, Intradermal Kaylynn Ramirez [facility] Work Phone: 05-18-2015 influenza, seasonal, injectable Kaylynn Ramirez [facility] Work Phone: 05-18-2009 TD(adult) unspecifie d formulation Kaylynn Ramirez [facility] Work Phone: 05-18-2009 tetanus and diphther ia toxoids, adsorbed, preservative free, for adult use (5 Lf of tetanus toxoid and 2 Lf of diphtheria toxoid) Kaylynn Ramirez [facility] Work Phone: Payers Date Payer Category Payer Medicare [id number] 2020 Medicare [id number] 2019 Unknown [id number] 1950 Unknown [id number] Unknown Unknown [id number] Social History Date Type Detail Facility Alcohol use: Never smoker [facility] Work Phone: Clinical Notes 01-13-2023 to 01-23-2023 Note Date & Type Note Facility [facility]; [facility] Work Phone: [phone] 300-271709-05-2023 Instructions* Name Dates Details Follow up in 4-6 months Indication:BMI 28.0-28.9,adult Start:13-Jan-2023 Instruction Type:Provider Instructions for Treatment Patient Instructions Indication:Impaired fasting glucose Start:13-Jan-2023 Instruction Type:Provider Instructions for Treatment How to Access Health Informa tion Online using Patient Portal and [employer] Apps Indication:Impaired fasting glucose Start:13-Jan-2023 Instruction Type:Patient Education Patient Instructions Indication:Preop examination (Renamed from Pre-op evaluation) Start:03-Sep-2022 Instruction Type:Provider Instructions for Treatment How to Access Health Informa tion Online using Patient Portal and [employer] Apps Indication:Preop examination (Renamed from Pre-op evaluation) Start:03-Sep-2022 Instruction Type:Patient Education How to Access Health Informa tion Online using Patient Portal and [employer] Apps Indication:Nonsmoker Start:20-Jun-2022 Instruction Type:Patient Education Patient Instructions Indication:Nonsmoker Start:20-Jun-2022 Instruction Type:Provider Instructions for Treatment How to Access Health Informa tion Online using Patient Portal and [employer] Apps Indication:Nonsmoker Start:06-Jun-2022 Instruction Type:Patient Education Patient Instructions Indication:Nonsmoker Start:06-Jun-2022 Instruction Type:Provider Instructions for Treatment Patient Instructions Indication:Nonsmoker Start:25-Jul-2020 Instruction Type:Provider Instructions for Treatment How to Access Health Informa tion Online using Patient Portal and [employer] Apps Indication:Nonsmoker Start:25-Jul-2020 Instruction Type:Patient Education Patient Instructions Indication:Nonsmoker Start:02-Jul-2020 Instruction Type:Provider Instructions for Treatment How to Access Health Informa tion Online using Patient Portal and [employer] Apps Indication:Nonsmoker Start:02-Jul-2020 Instruction Type:Patient Education How to access health informa tion online Indication:Nonsmoker Start:22-Feb-2020 Instruction Type:Patient Education How to access health informa tion online - Detail Indication:Nonsmoker Start:22-Feb-2020 Instruction Type:Patient Education Patient Instructions Indication:Nonsmoker Start:22-Feb-2020 Instruction Type:Provider Instructions for Treatment How to access health informa tion online Indication:Nonsmoker Start:14-Oct-2019 Instruction Type:Patient Education How to access health informa tion online - Detail Indication:Nonsmoker Start:14-Oct-2019 Instruction Type:Patient Education Patient Instructions Indication:BMI 31.0-31.9,adult Start:14-Oct-2019 Instruction Type:Provider Instructions for Treatment How to access health informa tion online Indication:Nonsmoker Start:14-Jun-2019 Instruction Type:Patient Education How to access health informa tion online - Detail Indication:Nonsmoker Start:14-Jun-2019 Instruction Type:Patient Education Patient Instructions Indication:Nonsmoker Start:14-Jun-2019 Instruction Type:Provider Instructions for Treatment How to access health informa tion online Indication:Impaired fasting glucose Start:07-Mar-2019 Instruction Type:Patient Education How to access health informa tion online - Detail Indication:Impaired fasting glucose Start:07-Mar-2019 Instruction Type:Patient Education Patient Instructions Indication:BMI 30.0-30.9,adult Start:07-Mar-2019 Instruction Type:Provider Instructions for Treatment DISCONTINUED - NMR Profile ( 73612) Indication:Elevated cholesterol Start:01-Nov-2018 Instruction Type:Patient Education DISCONTINUED - METABOLIC KAROL EVANS (46246) Indication:Elevated cholesterol Start:01-Nov-2018 Instruction Type:Patient Education How to access health informa tion online Indication:Impaired fasting glucose Start:01-Nov-2018 Instruction Type:Patient Education How to access health informa tion online - Detail Indication:Impaired fasting glucose Start:01-Nov-2018 Instruction Type:Patient Education Patient Instructions Indication:Nonsmoker Start:01-Nov-2018 Instruction Type:Provider Instructions for Treatment How to access health informa tion online Indication:Nonsmoker Start:23-Mar-2018 Instruction Type:Patient Education How to access health informa tion online - Detail Indication:Nonsmoker Start:23-Mar-2018 Instruction Type:Patient Education Patient Instructions Indication:BMI 29.0-29.9,adult Start:23-Mar-2018 Instruction Type:Provider Instructions for Treatment How to access health informa tion online Indication:Nonsmoker Start:08-Feb-2018 Instruction Type:Patient Education How to access health informa tion online - Detail Indication:Nonsmoker Start:08-Feb-2018 Instruction Type:Patient Education Patient Instructions Indication:Nonsmoker Start:08-Feb-2018 Instruction Type:Provider Instructions for Treatment Patient Instructions Indication:Nonsmoker Start:16-Feb-2017 Instruction Type:Provider Instructions for Treatment How to access health informa tion online Indication:Elevated cholesterol Start:16-Feb-2017 Instruction Type:Patient Education How to access health informa tion online - Detail Indication:Elevated cholesterol Start:16-Feb-2017 Instruction Type:Patient Education Patient Instructions Indication:Elevated cholesterol Start:16-Feb-2017 Instruction Type:Provider Instructions for Treatment How to access health informa tion online Indication:Elevated cholesterol Start:27-Oct-2016 Instruction Type:Patient Education How to access health informa tion online - Detail Indication:Elevated cholesterol Start:27-Oct-2016 Instruction Type:Patient Education Patient Instructions Indication:Elevated cholesterol Start:27-Oct-2016 Instruction Type:Provider Instructions for Treatment How to access health informa tion online Indication:Nonsmoker Start:21-Feb-2016 Instruction Type:Patient Education How to access health informa tion online - Detail Indication:Nonsmoker Start:21-Feb-2016 Instruction Type:Patient Education Patient Instructions Indication:Nonsmoker Start:21-Feb-2016 Instruction Type:Provider Instructions for Treatment [facility]; [facility] Work Phone: [phone] Instructions* Name Dates Details Follow up in 4-6 months Indication:BMI 28.0-28.9,adult Start:13-Jan-2023 Instruction Type:Provider Instructions for Treatment Patient Instructions Indication:Impaired fasting glucose Start:13-Jan-2023 Instruction Type:Provider Instructions for Treatment How to Access Health Informa tion Online using Patient Portal and [employer] Indication:Impaired fasting glucose Start:13-Jan-2023 Instruction Type:Patient Education Patient Instructions Indication:Preop examination (Renamed from Pre-op evaluation) Start:03-Sep-2022 Instruction Type:Provider Instructions for Treatment How to Access Health Informa tion Online using Patient Portal and [employer] Indication:Preop examination (Renamed from Pre-op evaluation) Start:03-Sep-2022 Instruction Type:Patient Education How to Access Health Informa tion Online using Patient Portal and [employer] Indication:Nonsmoker Start:20-Jun-2022 Instruction Type:Patient Education Patient Instructions Indication:Nonsmoker Start:20-Jun-2022 Instruction Type:Provider Instructions for Treatment How to Access Health Informa tion Online using Patient Portal and [employer] Indication:Nonsmoker Start:06-Jun-2022 Instruction Type:Patient Education Patient Instructions Indication:Nonsmoker Start:06-Jun-2022 Instruction Type:Provider Instructions for Treatment Patient Instructions Indication:Nonsmoker Start:25-Jul-2020 Instruction Type:Provider Instructions for Treatment How to Access Health Informa tion Online using Patient Portal and [employer] Indication:Nonsmoker Start:25-Jul-2020 Instruction Type:Patient Education Patient Instructions Indication:Nonsmoker Start:02-Jul-2020 Instruction Type:Provider Instructions for Treatment How to Access Health Informa tion Online using Patient Portal and [employer] Indication:Nonsmoker Start:02-Jul-2020 Instruction Type:Patient Education How to access health informa tion online Indication:Nonsmoker Start:22-Feb-2020 Instruction Type:Patient Education How to access health informa tion online - Detail Indication:Nonsmoker Start:22-Feb-2020 Instruction Type:Patient Education Patient Instructions Indication:Nonsmoker Start:22-Feb-2020 Instruction Type:Provider Instructions for Treatment How to access health informa tion online Indication:Nonsmoker Start:14-Oct-2019 Instruction Type:Patient Education How to access health informa tion online - Detail Indication:Nonsmoker Start:14-Oct-2019 Instruction Type:Patient Education Patient Instructions Indication:BMI 31.0-31.9,adult Start:14-Oct-2019 Instruction Type:Provider Instructions for Treatment How to access health informa tion online Indication:Nonsmoker Start:14-Jun-2019 Instruction Type:Patient Education How to access health informa tion online - Detail Indication:Nonsmoker Start:14-Jun-2019 Instruction Type:Patient Education Patient Instructions Indication:Nonsmoker Start:14-Jun-2019 Instruction Type:Provider Instructions for Treatment How to access health informa tion online Indication:Impaired fasting glucose Start:07-Mar-2019 Instruction Type:Patient Education How to access health informa tion online - Detail Indication:Impaired fasting glucose Start:07-Mar-2019 Instruction Type:Patient Education Patient Instructions Indication:BMI 30.0-30.9,adult Start:07-Mar-2019 Instruction Type:Provider Instructions for Treatment DISCONTINUED - NMR Profile ( [id number]) Indication:Elevated cholesterol Start:01-Nov-2018 Instruction Type:Patient Education DISCONTINUED - METABOLIC HERNANDES EL, COMPREHENSIVE ([id number]) Indication:Elevated cholesterol Start:01-Nov-2018 Instruction Type:Patient Education How to access health informa tion online Indication:Impaired fasting glucose Start:01-Nov-2018 Instruction Type:Patient Education How to access health informa tion online - Detail Indication:Impaired fasting glucose Start:01-Nov-2018 Instruction Type:Patient Education Patient Instructions Indication:Nonsmoker Start:01-Nov-2018 Instruction Type:Provider Instructions for Treatment How to access health informa tion online Indication:Nonsmoker Start:23-Mar-2018 Instruction Type:Patient Education How to access health informa tion online - Detail Indication:Nonsmoker Start:23-Mar-2018 Instruction Type:Patient Education Patient Instructions Indication:BMI 29.0-29.9,adult Start:23-Mar-2018 Instruction Type:Provider Instructions for Treatment How to access health informa tion online Indication:Nonsmoker Start:08-Feb-2018 Instruction Type:Patient Education How to access health informa tion online - Detail Indication:Nonsmoker Start:08-Feb-2018 Instruction Type:Patient Education Patient Instructions Indication:Nonsmoker Start:08-Feb-2018 Instruction Type:Provider Instructions for Treatment Patient Instructions Indication:Nonsmoker Start:16-Feb-2017 Instruction Type:Provider Instructions for Treatment How to access health informa tion online Indication:Elevated cholesterol Start:16-Feb-2017 Instruction Type:Patient Education How to access health informa tion online - Detail Indication:Elevated cholesterol Start:16-Feb-2017 Instruction Type:Patient Education Patient Instructions Indication:Elevated cholesterol Start:16-Feb-2017 Instruction Type:Provider Instructions for Treatment How to access health informa tion online Indication:Elevated cholesterol Start:27-Oct-2016 Instruction Type:Patient Education How to access health informa tion online - Detail Indication:Elevated cholesterol Start:27-Oct-2016 Instruction Type:Patient Education Patient Instructions Indication:Elevated cholesterol Start:27-Oct-2016 Instruction Type:Provider Instructions for Treatment How to access health informa tion online Indication:Nonsmoker Start:21-Feb-2016 Instruction Type:Patient Education How to access health informa tion online - Detail Indication:Nonsmoker Start:21-Feb-2016 Instruction Type:Patient Education Patient Instructions Indication:Nonsmoker Start:21-Feb-2016 Instruction Type:Provider Instructions for Treatment [facility]; [facility] Work Phone: Instructions* Name Dates Details Patient Instructions Indication:Nonsmoker Start:25-Jul-2020 Instruction Type:Provider Instructions for Treatment How to Access Health Informa tion Online using Patient Portal and [employer] Indication:Nonsmoker Start:25-Jul-2020 Instruction Type:Patient Education Patient Instructions Indication:Nonsmoker Start:02-Jul-2020 Instruction Type:Provider Instructions for Treatment How to Access Health Informa tion Online using Patient Portal and [employer] Indication:Nonsmoker Start:02-Jul-2020 Instruction Type:Patient Education How to access health informa tion online Indication:Nonsmoker Start:22-Feb-2020 Instruction Type:Patient Education How to access health informa tion online - Detail Indication:Nonsmoker Start:22-Feb-2020 Instruction Type:Patient Education Patient Instructions Indication:Nonsmoker Start:22-Feb-2020 Instruction Type:Provider Instructions for Treatment How to access health informa tion online Indication:Nonsmoker Start:14-Oct-2019 Instruction Type:Patient Education How to access health informa tion online - Detail Indication:Nonsmoker Start:14-Oct-2019 Instruction Type:Patient Education Patient Instructions Indication:BMI 31.0-31.9,adult Start:14-Oct-2019 Instruction Type:Provider Instructions for Treatment How to access health informa tion online Indication:Nonsmoker Start:14-Jun-2019 Instruction Type:Patient Education How to access health informa tion online - Detail Indication:Nonsmoker Start:14-Jun-2019 Instruction Type:Patient Education Patient Instructions Indication:Nonsmoker Start:14-Jun-2019 Instruction Type:Provider Instructions for Treatment How to access health informa tion online Indication:Impaired fasting glucose Start:07-Mar-2019 Instruction Type:Patient Education How to access health informa tion online - Detail Indication:Impaired fasting glucose Start:07-Mar-2019 Instruction Type:Patient Education Patient Instructions Indication:BMI 30.0-30.9,adult Start:07-Mar-2019 Instruction Type:Provider Instructions for Treatment DISCONTINUED - NMR Profile ( [id number]) Indication:Elevated cholesterol Start:01-Nov-2018 Instruction Type:Patient Education DISCONTINUED - METABOLIC HERNANDES EL, COMPREHENSIVE ([id number]) Indication:Elevated cholesterol Start:01-Nov-2018 Instruction Type:Patient Education How to access health informa tion online Indication:Impaired fasting glucose Start:01-Nov-2018 Instruction Type:Patient Education How to access health informa tion online - Detail Indication:Impaired fasting glucose Start:01-Nov-2018 Instruction Type:Patient Education Patient Instructions Indication:Nonsmoker Start:01-Nov-2018 Instruction Type:Provider Instructions for Treatment How to access health informa tion online Indication:Nonsmoker Start:23-Mar-2018 Instruction Type:Patient Education How to access health informa tion online - Detail Indication:Nonsmoker Start:23-Mar-2018 Instruction Type:Patient Education Patient Instructions Indication:BMI 29.0-29.9,adult Start:23-Mar-2018 Instruction Type:Provider Instructions for Treatment How to access health informa tion online Indication:Nonsmoker Start:08-Feb-2018 Instruction Type:Patient Education How to access health informa tion online - Detail Indication:Nonsmoker Start:08-Feb-2018 Instruction Type:Patient Education Patient Instructions Indication:Nonsmoker Start:08-Feb-2018 Instruction Type:Provider Instructions for Treatment Patient Instructions Indication:Nonsmoker Start:16-Feb-2017 Instruction Type:Provider Instructions for Treatment How to access health informa tion online Indication:Elevated cholesterol Start:16-Feb-2017 Instruction Type:Patient Education How to access health informa tion online - Detail Indication:Elevated cholesterol Start:16-Feb-2017 Instruction Type:Patient Education Patient Instructions Indication:Elevated cholesterol Start:16-Feb-2017 Instruction Type:Provider Instructions for Treatment How to access health informa tion online Indication:Elevated cholesterol Start:27-Oct-2016 Instruction Type:Patient Education How to access health informa tion online - Detail Indication:Elevated cholesterol Start:27-Oct-2016 Instruction Type:Patient Education Patient Instructions Indication:Elevated cholesterol Start:27-Oct-2016 Instruction Type:Provider Instructions for Treatment How to access health informa tion online Indication:Nonsmoker Start:21-Feb-2016 Instruction Type:Patient Education How to access health informa tion online - Detail Indication:Nonsmoker Start:21-Feb-2016 Instruction Type:Patient Education Patient Instructions Indication:Nonsmoker Start:21-Feb-2016 Instruction Type:Provider Instructions for Treatment [facility]; [facility] Work Phone: Instructions* Name Dates Details How to Access Health Informa tion Online using Patient Portal and [employer] Apps Indication:Impaired fasting glucose Start:26-May-2022 Instruction Type:Patient Education Patient Instructions Indication:Impaired fasting glucose Start:26-May-2022 Instruction Type:Provider Instructions for Treatment Patient Instructions Indication:Nonsmoker Start:25-Jul-2020 Instruction Type:Provider Instructions for Treatment How to Access Health Informa tion Online using Patient Portal and [employer] Apps Indication:Nonsmoker Start:25-Jul-2020 Instruction Type:Patient Education Patient Instructions Indication:Nonsmoker Start:02-Jul-2020 Instruction Type:Provider Instructions for Treatment How to Access Health Informa tion Online using Patient Portal and [employer] Apps Indication:Nonsmoker Start:02-Jul-2020 Instruction Type:Patient Education How to access health informa tion online Indication:Nonsmoker Start:22-Feb-2020 Instruction Type:Patient Education How to access health informa tion online - Detail Indication:Nonsmoker Start:22-Feb-2020 Instruction Type:Patient Education Patient Instructions Indication:Nonsmoker Start:22-Feb-2020 Instruction Type:Provider Instructions for Treatment How to access health informa tion online Indication:Nonsmoker Start:14-Oct-2019 Instruction Type:Patient Education How to access health informa tion online - Detail Indication:Nonsmoker Start:14-Oct-2019 Instruction Type:Patient Education Patient Instructions Indication:BMI 31.0-31.9,adult Start:14-Oct-2019 Instruction Type:Provider Instructions for Treatment How to access health informa tion online Indication:Nonsmoker Start:14-Jun-2019 Instruction Type:Patient Education How to access health informa tion online - Detail Indication:Nonsmoker Start:14-Jun-2019 Instruction Type:Patient Education Patient Instructions Indication:Nonsmoker Start:14-Jun-2019 Instruction Type:Provider Instructions for Treatment How to access health informa tion online Indication:Impaired fasting glucose Start:07-Mar-2019 Instruction Type:Patient Education How to access health informa tion online - Detail Indication:Impaired fasting glucose Start:07-Mar-2019 Instruction Type:Patient Education Patient Instructions Indication:BMI 30.0-30.9,adult Start:07-Mar-2019 Instruction Type:Provider Instructions for Treatment DISCONTINUED - NMR Profile ( [id number]) Indication:Elevated cholesterol Start:01-Nov-2018 Instruction Type:Patient Education DISCONTINUED - METABOLIC HERNANDES EL, COMPREHENSIVE ([id number]) Indication:Elevated cholesterol Start:01-Nov-2018 Instruction Type:Patient Education How to access health informa tion online Indication:Impaired fasting glucose Start:01-Nov-2018 Instruction Type:Patient Education How to access health informa tion online - Detail Indication:Impaired fasting glucose Start:01-Nov-2018 Instruction Type:Patient Education Patient Instructions Indication:Nonsmoker Start:01-Nov-2018 Instruction Type:Provider Instructions for Treatment How to access health informa tion online Indication:Nonsmoker Start:23-Mar-2018 Instruction Type:Patient Education How to access health informa tion online - Detail Indication:Nonsmoker Start:23-Mar-2018 Instruction Type:Patient Education Patient Instructions Indication:BMI 29.0-29.9,adult Start:23-Mar-2018 Instruction Type:Provider Instructions for Treatment How to access health informa tion online Indication:Nonsmoker Start:08-Feb-2018 Instruction Type:Patient Education How to access health informa tion online - Detail Indication:Nonsmoker Start:08-Feb-2018 Instruction Type:Patient Education Patient Instructions Indication:Nonsmoker Start:08-Feb-2018 Instruction Type:Provider Instructions for Treatment Patient Instructions Indication:Nonsmoker Start:16-Feb-2017 Instruction Type:Provider Instructions for Treatment How to access health informa tion online Indication:Elevated cholesterol Start:16-Feb-2017 Instruction Type:Patient Education How to access health informa tion online - Detail Indication:Elevated cholesterol Start:16-Feb-2017 Instruction Type:Patient Education Patient Instructions Indication:Elevated cholesterol Start:16-Feb-2017 Instruction Type:Provider Instructions for Treatment How to access health informa tion online Indication:Elevated cholesterol Start:27-Oct-2016 Instruction Type:Patient Education How to access health informa tion online - Detail Indication:Elevated cholesterol Start:27-Oct-2016 Instruction Type:Patient Education Patient Instructions Indication:Elevated cholesterol Start:27-Oct-2016 Instruction Type:Provider Instructions for Treatment How to access health informa tion online Indication:Nonsmoker Start:21-Feb-2016 Instruction Type:Patient Education How to access health informa tion online - Detail Indication:Nonsmoker Start:21-Feb-2016 Instruction Type:Patient Education Patient Instructions Indication:Nonsmoker Start:21-Feb-2016 Instruction Type:Provider Instructions for Treatment [facility]; [facility] Work Phone: Instructions* Name Dates Details How to Access Health Informa tion Online using Patient Portal and [employer] Indication:Nonsmoker Start:06-Jun-2022 Instruction Type:Patient Education Patient Instructions Indication:Nonsmoker Start:06-Jun-2022 Instruction Type:Provider Instructions for Treatment Patient Instructions Indication:Nonsmoker Start:25-Jul-2020 Instruction Type:Provider Instructions for Treatment How to Access Health Informa tion Online using Patient Portal and [employer] Apps Indication:Nonsmoker Start:25-Jul-2020 Instruction Type:Patient Education Patient Instructions Indication:Nonsmoker Start:02-Jul-2020 Instruction Type:Provider Instructions for Treatment How to Access Health Informa tion Online using Patient Portal and [employer] Apps Indication:Nonsmoker Start:02-Jul-2020 Instruction Type:Patient Education How to access health informa tion online Indication:Nonsmoker Start:22-Feb-2020 Instruction Type:Patient Education How to access health informa tion online - Detail Indication:Nonsmoker Start:22-Feb-2020 Instruction Type:Patient Education Patient Instructions Indication:Nonsmoker Start:22-Feb-2020 Instruction Type:Provider Instructions for Treatment How to access health informa tion online Indication:Nonsmoker Start:14-Oct-2019 Instruction Type:Patient Education How to access health informa tion online - Detail Indication:Nonsmoker Start:14-Oct-2019 Instruction Type:Patient Education Patient Instructions Indication:BMI 31.0-31.9,adult Start:14-Oct-2019 Instruction Type:Provider Instructions for Treatment How to access health informa tion online Indication:Nonsmoker Start:14-Jun-2019 Instruction Type:Patient Education How to access health informa tion online - Detail Indication:Nonsmoker Start:14-Jun-2019 Instruction Type:Patient Education Patient Instructions Indication:Nonsmoker Start:14-Jun-2019 Instruction Type:Provider Instructions for Treatment How to access health informa tion online Indication:Impaired fasting glucose Start:07-Mar-2019 Instruction Type:Patient Education How to access health informa tion online - Detail Indication:Impaired fasting glucose Start:07-Mar-2019 Instruction Type:Patient Education Patient Instructions Indication:BMI 30.0-30.9,adult Start:07-Mar-2019 Instruction Type:Provider Instructions for Treatment DISCONTINUED - NMR Profile ( [id number]) Indication:Elevated cholesterol Start:01-Nov-2018 Instruction Type:Patient Education DISCONTINUED - METABOLIC HERNANDES EL, COMPREHENSIVE ([id number]) Indication:Elevated cholesterol Start:01-Nov-2018 Instruction Type:Patient Education How to access health informa tion online Indication:Impaired fasting glucose Start:01-Nov-2018 Instruction Type:Patient Education How to access health informa tion online - Detail Indication:Impaired fasting glucose Start:01-Nov-2018 Instruction Type:Patient Education Patient Instructions Indication:Nonsmoker Start:01-Nov-2018 Instruction Type:Provider Instructions for Treatment How to access health informa tion online Indication:Nonsmoker Start:23-Mar-2018 Instruction Type:Patient Education How to access health informa tion online - Detail Indication:Nonsmoker Start:23-Mar-2018 Instruction Type:Patient Education Patient Instructions Indication:BMI 29.0-29.9,adult Start:23-Mar-2018 Instruction Type:Provider Instructions for Treatment How to access health informa tion online Indication:Nonsmoker Start:08-Feb-2018 Instruction Type:Patient Education How to access health informa tion online - Detail Indication:Nonsmoker Start:08-Feb-2018 Instruction Type:Patient Education Patient Instructions Indication:Nonsmoker Start:08-Feb-2018 Instruction Type:Provider Instructions for Treatment Patient Instructions Indication:Nonsmoker Start:16-Feb-2017 Instruction Type:Provider Instructions for Treatment How to access health informa tion online Indication:Elevated cholesterol Start:16-Feb-2017 Instruction Type:Patient Education How to access health informa tion online - Detail Indication:Elevated cholesterol Start:16-Feb-2017 Instruction Type:Patient Education Patient Instructions Indication:Elevated cholesterol Start:16-Feb-2017 Instruction Type:Provider Instructions for Treatment How to access health informa tion online Indication:Elevated cholesterol Start:27-Oct-2016 Instruction Type:Patient Education How to access health informa tion online - Detail Indication:Elevated cholesterol Start:27-Oct-2016 Instruction Type:Patient Education Patient Instructions Indication:Elevated cholesterol Start:27-Oct-2016 Instruction Type:Provider Instructions for Treatment How to access health informa tion online Indication:Nonsmoker Start:21-Feb-2016 Instruction Type:Patient Education How to access health informa tion online - Detail Indication:Nonsmoker Start:21-Feb-2016 Instruction Type:Patient Education Patient Instructions Indication:Nonsmoker Start:21-Feb-2016 Instruction Type:Provider Instructions for Treatment [facility]; [facility] Work Phone: Instructions* Name Dates Details How to Access Health Informa tion Online using Patient Portal and [employer] Apps Indication:Nonsmoker Start:20-Jun-2022 Instruction Type:Patient Education Patient Instructions Indication:Nonsmoker Start:20-Jun-2022 Instruction Type:Provider Instructions for Treatment How to Access Health Informa tion Online using Patient Portal and [employer] Apps Indication:Nonsmoker Start:06-Jun-2022 Instruction Type:Patient Education Patient Instructions Indication:Nonsmoker Start:06-Jun-2022 Instruction Type:Provider Instructions for Treatment Patient Instructions Indication:Nonsmoker Start:25-Jul-2020 Instruction Type:Provider Instructions for Treatment How to Access Health Informa tion Online using Patient Portal and [employer] Apps Indication:Nonsmoker Start:25-Jul-2020 Instruction Type:Patient Education Patient Instructions Indication:Nonsmoker Start:02-Jul-2020 Instruction Type:Provider Instructions for Treatment How to Access Health Informa tion Online using Patient Portal and [employer] Apps Indication:Nonsmoker Start:02-Jul-2020 Instruction Type:Patient Education How to access health informa tion online Indication:Nonsmoker Start:22-Feb-2020 Instruction Type:Patient Education How to access health informa tion online - Detail Indication:Nonsmoker Start:22-Feb-2020 Instruction Type:Patient Education Patient Instructions Indication:Nonsmoker Start:22-Feb-2020 Instruction Type:Provider Instructions for Treatment How to access health informa tion online Indication:Nonsmoker Start:14-Oct-2019 Instruction Type:Patient Education How to access health informa tion online - Detail Indication:Nonsmoker Start:14-Oct-2019 Instruction Type:Patient Education Patient Instructions Indication:BMI 31.0-31.9,adult Start:14-Oct-2019 Instruction Type:Provider Instructions for Treatment How to access health informa tion online Indication:Nonsmoker Start:14-Jun-2019 Instruction Type:Patient Education How to access health informa tion online - Detail Indication:Nonsmoker Start:14-Jun-2019 Instruction Type:Patient Education Patient Instructions Indication:Nonsmoker Start:14-Jun-2019 Instruction Type:Provider Instructions for Treatment How to access health informa tion online Indication:Impaired fasting glucose Start:07-Mar-2019 Instruction Type:Patient Education How to access health informa tion online - Detail Indication:Impaired fasting glucose Start:07-Mar-2019 Instruction Type:Patient Education Patient Instructions Indication:BMI 30.0-30.9,adult Start:07-Mar-2019 Instruction Type:Provider Instructions for Treatment DISCONTINUED - NMR Profile ( [id number]) Indication:Elevated cholesterol Start:01-Nov-2018 Instruction Type:Patient Education DISCONTINUED - METABOLIC HERNANDES EL, COMPREHENSIVE ([id number]) Indication:Elevated cholesterol Start:01-Nov-2018 Instruction Type:Patient Education How to access health informa tion online Indication:Impaired fasting glucose Start:01-Nov-2018 Instruction Type:Patient Education How to access health informa tion online - Detail Indication:Impaired fasting glucose Start:01-Nov-2018 Instruction Type:Patient Education Patient Instructions Indication:Nonsmoker Start:01-Nov-2018 Instruction Type:Provider Instructions for Treatment How to access health informa tion online Indication:Nonsmoker Start:23-Mar-2018 Instruction Type:Patient Education How to access health informa tion online - Detail Indication:Nonsmoker Start:23-Mar-2018 Instruction Type:Patient Education Patient Instructions Indication:BMI 29.0-29.9,adult Start:23-Mar-2018 Instruction Type:Provider Instructions for Treatment How to access health informa tion online Indication:Nonsmoker Start:08-Feb-2018 Instruction Type:Patient Education How to access health informa tion online - Detail Indication:Nonsmoker Start:08-Feb-2018 Instruction Type:Patient Education Patient Instructions Indication:Nonsmoker Start:08-Feb-2018 Instruction Type:Provider Instructions for Treatment Patient Instructions Indication:Nonsmoker Start:16-Feb-2017 Instruction Type:Provider Instructions for Treatment How to access health informa tion online Indication:Elevated cholesterol Start:16-Feb-2017 Instruction Type:Patient Education How to access health informa tion online - Detail Indication:Elevated cholesterol Start:16-Feb-2017 Instruction Type:Patient Education Patient Instructions Indication:Elevated cholesterol Start:16-Feb-2017 Instruction Type:Provider Instructions for Treatment How to access health informa tion online Indication:Elevated cholesterol Start:27-Oct-2016 Instruction Type:Patient Education How to access health informa tion online - Detail Indication:Elevated cholesterol Start:27-Oct-2016 Instruction Type:Patient Education Patient Instructions Indication:Elevated cholesterol Start:27-Oct-2016 Instruction Type:Provider Instructions for Treatment How to access health informa tion online Indication:Nonsmoker Start:21-Feb-2016 Instruction Type:Patient Education How to access health informa tion online - Detail Indication:Nonsmoker Start:21-Feb-2016 Instruction Type:Patient Education Patient Instructions Indication:Nonsmoker Start:21-Feb-2016 Instruction Type:Provider Instructions for Treatment [facility]; [facility] Work Phone: Instructions* Name Dates Details How to Access Health Informa tion Online using Patient Portal and [employer] Apps Indication:Nonsmoker Start:20-Jun-2022 Instruction Type:Patient Education Patient Instructions Indication:Nonsmoker Start:20-Jun-2022 Instruction Type:Provider Instructions for Treatment How to Access Health Informa tion Online using Patient Portal and [employer] Apps Indication:Nonsmoker Start:06-Jun-2022 Instruction Type:Patient Education Patient Instructions Indication:Nonsmoker Start:06-Jun-2022 Instruction Type:Provider Instructions for Treatment Patient Instructions Indication:Nonsmoker Start:25-Jul-2020 Instruction Type:Provider Instructions for Treatment How to Access Health Informa tion Online using Patient Portal and [employer] Apps Indication:Nonsmoker Start:25-Jul-2020 Instruction Type:Patient Education Patient Instructions Indication:Nonsmoker Start:02-Jul-2020 Instruction Type:Provider Instructions for Treatment How to Access Health Informa tion Online using Patient Portal and [employer] Apps Indication:Nonsmoker Start:02-Jul-2020 Instruction Type:Patient Education How to access health informa tion online Indication:Nonsmoker Start:22-Feb-2020 Instruction Type:Patient Education How to access health informa tion online - Detail Indication:Nonsmoker Start:22-Feb-2020 Instruction Type:Patient Education Patient Instructions Indication:Nonsmoker Start:22-Feb-2020 Instruction Type:Provider Instructions for Treatment How to access health informa tion online Indication:Nonsmoker Start:14-Oct-2019 Instruction Type:Patient Education How to access health informa tion online - Detail Indication:Nonsmoker Start:14-Oct-2019 Instruction Type:Patient Education Patient Instructions Indication:BMI 31.0-31.9,adult Start:14-Oct-2019 Instruction Type:Provider Instructions for Treatment How to access health informa tion online Indication:Nonsmoker Start:14-Jun-2019 Instruction Type:Patient Education How to access health informa tion online - Detail Indication:Nonsmoker Start:14-Jun-2019 Instruction Type:Patient Education Patient Instructions Indication:Nonsmoker Start:14-Jun-2019 Instruction Type:Provider Instructions for Treatment How to access health informa tion online Indication:Impaired fasting glucose Start:07-Mar-2019 Instruction Type:Patient Education How to access health informa tion online - Detail Indication:Impaired fasting glucose Start:07-Mar-2019 Instruction Type:Patient Education Patient Instructions Indication:BMI 30.0-30.9,adult Start:07-Mar-2019 Instruction Type:Provider Instructions for Treatment DISCONTINUED - NMR Profile ( [id number]) Indication:Elevated cholesterol Start:01-Nov-2018 Instruction Type:Patient Education DISCONTINUED - METABOLIC HERNANDES CARLOS, COMPREHENSIVE ([id number]) Indication:Elevated cholesterol Start:01-Nov-2018 Instruction Type:Patient Education How to access health informa tion online Indication:Impaired fasting glucose Start:01-Nov-2018 Instruction Type:Patient Education How to access health informa tion online - Detail Indication:Impaired fasting glucose Start:01-Nov-2018 Instruction Type:Patient Education Patient Instructions Indication:Nonsmoker Start:01-Nov-2018 Instruction Type:Provider Instructions for Treatment How to access health informa tion online Indication:Nonsmoker Start:23-Mar-2018 Instruction Type:Patient Education How to access health informa tion online - Detail Indication:Nonsmoker Start:23-Mar-2018 Instruction Type:Patient Education Patient Instructions Indication:BMI 29.0-29.9,adult Start:23-Mar-2018 Instruction Type:Provider Instructions for Treatment How to access health informa tion online Indication:Nonsmoker Start:08-Feb-2018 Instruction Type:Patient Education How to access health informa tion online - Detail Indication:Nonsmoker Start:08-Feb-2018 Instruction Type:Patient Education Patient Instructions Indication:Nonsmoker Start:08-Feb-2018 Instruction Type:Provider Instructions for Treatment Patient Instructions Indication:Nonsmoker Start:16-Feb-2017 Instruction Type:Provider Instructions for Treatment How to access health informa tion online Indication:Elevated cholesterol Start:16-Feb-2017 Instruction Type:Patient Education How to access health informa tion online - Detail Indication:Elevated cholesterol Start:16-Feb-2017 Instruction Type:Patient Education Patient Instructions Indication:Elevated cholesterol Start:16-Feb-2017 Instruction Type:Provider Instructions for Treatment How to access health informa tion online Indication:Elevated cholesterol Start:27-Oct-2016 Instruction Type:Patient Education How to access health informa tion online - Detail Indication:Elevated cholesterol Start:27-Oct-2016 Instruction Type:Patient Education Patient Instructions Indication:Elevated cholesterol Start:27-Oct-2016 Instruction Type:Provider Instructions for Treatment How to access health informa tion online Indication:Nonsmoker Start:21-Feb-2016 Instruction Type:Patient Education How to access health informa tion online - Detail Indication:Nonsmoker Start:21-Feb-2016 Instruction Type:Patient Education Patient Instructions Indication:Nonsmoker Start:21-Feb-2016 Instruction Type:Provider Instructions for Treatment [facility]; [facility] Work Phone: Instructions* Name Dates Details How to Access Health Informa tion Online using Patient Portal and [employer] Indication:Nonsmoker Start:20-Jun-2022 Instruction Type:Patient Education Patient Instructions Indication:Nonsmoker Start:20-Jun-2022 Instruction Type:Provider Instructions for Treatment How to Access Health Informa tion Online using Patient Portal and [employer] Apps Indication:Nonsmoker Start:06-Jun-2022 Instruction Type:Patient Education Patient Instructions Indication:Nonsmoker Start:06-Jun-2022 Instruction Type:Provider Instructions for Treatment Patient Instructions Indication:Nonsmoker Start:25-Jul-2020 Instruction Type:Provider Instructions for Treatment How to Access Health Informa tion Online using Patient Portal and [employer] Indication:Nonsmoker Start:25-Jul-2020 Instruction Type:Patient Education Patient Instructions Indication:Nonsmoker Start:02-Jul-2020 Instruction Type:Provider Instructions for Treatment How to Access Health Informa tion Online using Patient Portal and [employer] Indication:Nonsmoker Start:02-Jul-2020 Instruction Type:Patient Education How to access health informa tion online Indication:Nonsmoker Start:22-Feb-2020 Instruction Type:Patient Education How to access health informa tion online - Detail Indication:Nonsmoker Start:22-Feb-2020 Instruction Type:Patient Education Patient Instructions Indication:Nonsmoker Start:22-Feb-2020 Instruction Type:Provider Instructions for Treatment How to access health informa tion online Indication:Nonsmoker Start:14-Oct-2019 Instruction Type:Patient Education How to access health informa tion online - Detail Indication:Nonsmoker Start:14-Oct-2019 Instruction Type:Patient Education Patient Instructions Indication:BMI 31.0-31.9,adult Start:14-Oct-2019 Instruction Type:Provider Instructions for Treatment How to access health informa tion online Indication:Nonsmoker Start:14-Jun-2019 Instruction Type:Patient Education How to access health informa tion online - Detail Indication:Nonsmoker Start:14-Jun-2019 Instruction Type:Patient Education Patient Instructions Indication:Nonsmoker Start:14-Jun-2019 Instruction Type:Provider Instructions for Treatment How to access health informa tion online Indication:Impaired fasting glucose Start:07-Mar-2019 Instruction Type:Patient Education How to access health informa tion online - Detail Indication:Impaired fasting glucose Start:07-Mar-2019 Instruction Type:Patient Education Patient Instructions Indication:BMI 30.0-30.9,adult Start:07-Mar-2019 Instruction Type:Provider Instructions for Treatment DISCONTINUED - NMR Profile ( [id number]) Indication:Elevated cholesterol Start:01-Nov-2018 Instruction Type:Patient Education DISCONTINUED - METABOLIC KAROL EVANS ([id number]) Indication:Elevated cholesterol Start:01-Nov-2018 Instruction Type:Patient Education How to access health informa tion online Indication:Impaired fasting glucose Start:01-Nov-2018 Instruction Type:Patient Education How to access health informa tion online - Detail Indication:Impaired fasting glucose Start:01-Nov-2018 Instruction Type:Patient Education Patient Instructions Indication:Nonsmoker Start:01-Nov-2018 Instruction Type:Provider Instructions for Treatment How to access health informa tion online Indication:Nonsmoker Start:23-Mar-2018 Instruction Type:Patient Education How to access health informa tion online - Detail Indication:Nonsmoker Start:23-Mar-2018 Instruction Type:Patient Education Patient Instructions Indication:BMI 29.0-29.9,adult Start:23-Mar-2018 Instruction Type:Provider Instructions for Treatment How to access health informa tion online Indication:Nonsmoker Start:08-Feb-2018 Instruction Type:Patient Education How to access health informa tion online - Detail Indication:Nonsmoker Start:08-Feb-2018 Instruction Type:Patient Education Patient Instructions Indication:Nonsmoker Start:08-Feb-2018 Instruction Type:Provider Instructions for Treatment Patient Instructions Indication:Nonsmoker Start:16-Feb-2017 Instruction Type:Provider Instructions for Treatment How to access health informa tion online Indication:Elevated cholesterol Start:16-Feb-2017 Instruction Type:Patient Education How to access health informa tion online - Detail Indication:Elevated cholesterol Start:16-Feb-2017 Instruction Type:Patient Education Patient Instructions Indication:Elevated cholesterol Start:16-Feb-2017 Instruction Type:Provider Instructions for Treatment How to access health informa tion online Indication:Elevated cholesterol Start:27-Oct-2016 Instruction Type:Patient Education How to access health informa tion online - Detail Indication:Elevated cholesterol Start:27-Oct-2016 Instruction Type:Patient Education Patient Instructions Indication:Elevated cholesterol Start:27-Oct-2016 Instruction Type:Provider Instructions for Treatment How to access health informa tion online Indication:Nonsmoker Start:21-Feb-2016 Instruction Type:Patient Education How to access health informa tion online - Detail Indication:Nonsmoker Start:21-Feb-2016 Instruction Type:Patient Education Patient Instructions Indication:Nonsmoker Start:21-Feb-2016 Instruction Type:Provider Instructions for Treatment [facility]; [facility] Work Phone: Instructions* Name Dates Details Patient Instructions Indication:Preop examination (Renamed from Pre-op evaluation) Start:03-Sep-2022 Instruction Type:Provider Instructions for Treatment How to Access Health Informa tion Online using Patient Portal and [employer] Indication:Preop examination (Renamed from Pre-op evaluation) Start:03-Sep-2022 Instruction Type:Patient Education How to Access Health Informa tion Online using Patient Portal and [employer] Indication:Nonsmoker Start:20-Jun-2022 Instruction Type:Patient Education Patient Instructions Indication:Nonsmoker Start:20-Jun-2022 Instruction Type:Provider Instructions for Treatment How to Access Health Informa tion Online using Patient Portal and [employer] Indication:Nonsmoker Start:06-Jun-2022 Instruction Type:Patient Education Patient Instructions Indication:Nonsmoker Start:06-Jun-2022 Instruction Type:Provider Instructions for Treatment Patient Instructions Indication:Nonsmoker Start:25-Jul-2020 Instruction Type:Provider Instructions for Treatment How to Access Health Informa tion Online using Patient Portal and [employer] Indication:Nonsmoker Start:25-Jul-2020 Instruction Type:Patient Education Patient Instructions Indication:Nonsmoker Start:02-Jul-2020 Instruction Type:Provider Instructions for Treatment How to Access Health Informa tion Online using Patient Portal and [employer] Indication:Nonsmoker Start:02-Jul-2020 Instruction Type:Patient Education How to access health informa tion online Indication:Nonsmoker Start:22-Feb-2020 Instruction Type:Patient Education How to access health informa tion online - Detail Indication:Nonsmoker Start:22-Feb-2020 Instruction Type:Patient Education Patient Instructions Indication:Nonsmoker Start:22-Feb-2020 Instruction Type:Provider Instructions for Treatment How to access health informa tion online Indication:Nonsmoker Start:14-Oct-2019 Instruction Type:Patient Education How to access health informa tion online - Detail Indication:Nonsmoker Start:14-Oct-2019 Instruction Type:Patient Education Patient Instructions Indication:BMI 31.0-31.9,adult Start:14-Oct-2019 Instruction Type:Provider Instructions for Treatment How to access health informa tion online Indication:Nonsmoker Start:14-Jun-2019 Instruction Type:Patient Education How to access health informa tion online - Detail Indication:Nonsmoker Start:14-Jun-2019 Instruction Type:Patient Education Patient Instructions Indication:Nonsmoker Start:14-Jun-2019 Instruction Type:Provider Instructions for Treatment How to access health informa tion online Indication:Impaired fasting glucose Start:07-Mar-2019 Instruction Type:Patient Education How to access health informa tion online - Detail Indication:Impaired fasting glucose Start:07-Mar-2019 Instruction Type:Patient Education Patient Instructions Indication:BMI 30.0-30.9,adult Start:07-Mar-2019 Instruction Type:Provider Instructions for Treatment DISCONTINUED - NMR Profile ( [id number]) Indication:Elevated cholesterol Start:01-Nov-2018 Instruction Type:Patient Education DISCONTINUED - METABOLIC GRETA GONZALEZ COMPREHENSIVE ([id number]) Indication:Elevated cholesterol Start:01-Nov-2018 Instruction Type:Patient Education How to access health informa tion online Indication:Impaired fasting glucose Start:01-Nov-2018 Instruction Type:Patient Education How to access health informa tion online - Detail Indication:Impaired fasting glucose Start:01-Nov-2018 Instruction Type:Patient Education Patient Instructions Indication:Nonsmoker Start:01-Nov-2018 Instruction Type:Provider Instructions for Treatment How to access health informa tion online Indication:Nonsmoker Start:23-Mar-2018 Instruction Type:Patient Education How to access health informa tion online - Detail Indication:Nonsmoker Start:23-Mar-2018 Instruction Type:Patient Education Patient Instructions Indication:BMI 29.0-29.9,adult Start:23-Mar-2018 Instruction Type:Provider Instructions for Treatment How to access health informa tion online Indication:Nonsmoker Start:08-Feb-2018 Instruction Type:Patient Education How to access health informa tion online - Detail Indication:Nonsmoker Start:08-Feb-2018 Instruction Type:Patient Education Patient Instructions Indication:Nonsmoker Start:08-Feb-2018 Instruction Type:Provider Instructions for Treatment Patient Instructions Indication:Nonsmoker Start:16-Feb-2017 Instruction Type:Provider Instructions for Treatment How to access health informa tion online Indication:Elevated cholesterol Start:16-Feb-2017 Instruction Type:Patient Education How to access health informa tion online - Detail Indication:Elevated cholesterol Start:16-Feb-2017 Instruction Type:Patient Education Patient Instructions Indication:Elevated cholesterol Start:16-Feb-2017 Instruction Type:Provider Instructions for Treatment How to access health informa tion online Indication:Elevated cholesterol Start:27-Oct-2016 Instruction Type:Patient Education How to access health informa tion online - Detail Indication:Elevated cholesterol Start:27-Oct-2016 Instruction Type:Patient Education Patient Instructions Indication:Elevated cholesterol Start:27-Oct-2016 Instruction Type:Provider Instructions for Treatment How to access health informa tion online Indication:Nonsmoker Start:21-Feb-2016 Instruction Type:Patient Education How to access health informa tion online - Detail Indication:Nonsmoker Start:21-Feb-2016 Instruction Type:Patient Education Patient Instructions Indication:Nonsmoker Start:21-Feb-2016 Instruction Type:Provider Instructions for Treatment [facility]; [facility] Work Phone: Instructions* Name Dates Details Patient Instructions Indication:Preop examination (Renamed from Pre-op evaluation) Start:03-Sep-2022 Instruction Type:Provider Instructions for Treatment How to Access Health Informa tion Online using Patient Portal and [employer] Indication:Preop examination (Renamed from Pre-op evaluation) Start:03-Sep-2022 Instruction Type:Patient Education How to Access Health Informa tion Online using Patient Portal and [employer] Indication:Nonsmoker Start:20-Jun-2022 Instruction Type:Patient Education Patient Instructions Indication:Nonsmoker Start:20-Jun-2022 Instruction Type:Provider Instructions for Treatment How to Access Health Informa tion Online using Patient Portal and [employer] Indication:Nonsmoker Start:06-Jun-2022 Instruction Type:Patient Education Patient Instructions Indication:Nonsmoker Start:06-Jun-2022 Instruction Type:Provider Instructions for Treatment Patient Instructions Indication:Nonsmoker Start:25-Jul-2020 Instruction Type:Provider Instructions for Treatment How to Access Health Informa tion Online using Patient Portal and [employer] Indication:Nonsmoker Start:25-Jul-2020 Instruction Type:Patient Education Patient Instructions Indication:Nonsmoker Start:02-Jul-2020 Instruction Type:Provider Instructions for Treatment How to Access Health Informa tion Online using Patient Portal and [employer] Indication:Nonsmoker Start:02-Jul-2020 Instruction Type:Patient Education How to access health informa tion online Indication:Nonsmoker Start:22-Feb-2020 Instruction Type:Patient Education How to access health informa tion online - Detail Indication:Nonsmoker Start:22-Feb-2020 Instruction Type:Patient Education Patient Instructions Indication:Nonsmoker Start:22-Feb-2020 Instruction Type:Provider Instructions for Treatment How to access health informa tion online Indication:Nonsmoker Start:14-Oct-2019 Instruction Type:Patient Education How to access health informa tion online - Detail Indication:Nonsmoker Start:14-Oct-2019 Instruction Type:Patient Education Patient Instructions Indication:BMI 31.0-31.9,adult Start:14-Oct-2019 Instruction Type:Provider Instructions for Treatment How to access health informa tion online Indication:Nonsmoker Start:14-Jun-2019 Instruction Type:Patient Education How to access health informa tion online - Detail Indication:Nonsmoker Start:14-Jun-2019 Instruction Type:Patient Education Patient Instructions Indication:Nonsmoker Start:14-Jun-2019 Instruction Type:Provider Instructions for Treatment How to access health informa tion online Indication:Impaired fasting glucose Start:07-Mar-2019 Instruction Type:Patient Education How to access health informa tion online - Detail Indication:Impaired fasting glucose Start:07-Mar-2019 Instruction Type:Patient Education Patient Instructions Indication:BMI 30.0-30.9,adult Start:07-Mar-2019 Instruction Type:Provider Instructions for Treatment DISCONTINUED - NMR Profile ( [id number]) Indication:Elevated cholesterol Start:01-Nov-2018 Instruction Type:Patient Education DISCONTINUED - METABOLIC HERNANDES EL, COMPREHENSIVE ([id number]) Indication:Elevated cholesterol Start:01-Nov-2018 Instruction Type:Patient Education How to access health informa tion online Indication:Impaired fasting glucose Start:01-Nov-2018 Instruction Type:Patient Education How to access health informa tion online - Detail Indication:Impaired fasting glucose Start:01-Nov-2018 Instruction Type:Patient Education Patient Instructions Indication:Nonsmoker Start:01-Nov-2018 Instruction Type:Provider Instructions for Treatment How to access health informa tion online Indication:Nonsmoker Start:23-Mar-2018 Instruction Type:Patient Education How to access health informa tion online - Detail Indication:Nonsmoker Start:23-Mar-2018 Instruction Type:Patient Education Patient Instructions Indication:BMI 29.0-29.9,adult Start:23-Mar-2018 Instruction Type:Provider Instructions for Treatment How to access health informa tion online Indication:Nonsmoker Start:08-Feb-2018 Instruction Type:Patient Education How to access health informa tion online - Detail Indication:Nonsmoker Start:08-Feb-2018 Instruction Type:Patient Education Patient Instructions Indication:Nonsmoker Start:08-Feb-2018 Instruction Type:Provider Instructions for Treatment Patient Instructions Indication:Nonsmoker Start:16-Feb-2017 Instruction Type:Provider Instructions for Treatment How to access health informa tion online Indication:Elevated cholesterol Start:16-Feb-2017 Instruction Type:Patient Education How to access health informa tion online - Detail Indication:Elevated cholesterol Start:16-Feb-2017 Instruction Type:Patient Education Patient Instructions Indication:Elevated cholesterol Start:16-Feb-2017 Instruction Type:Provider Instructions for Treatment How to access health informa tion online Indication:Elevated cholesterol Start:27-Oct-2016 Instruction Type:Patient Education How to access health informa tion online - Detail Indication:Elevated cholesterol Start:27-Oct-2016 Instruction Type:Patient Education Patient Instructions Indication:Elevated cholesterol Start:27-Oct-2016 Instruction Type:Provider Instructions for Treatment How to access health informa tion online Indication:Nonsmoker Start:21-Feb-2016 Instruction Type:Patient Education How to access health informa tion online - Detail Indication:Nonsmoker Start:21-Feb-2016 Instruction Type:Patient Education Patient Instructions Indication:Nonsmoker Start:21-Feb-2016 Instruction Type:Provider Instructions for Treatment [facility] Work Phone: Instructions* Name Dates Details Patient Instructions Indication:Preop examination (Renamed from Pre-op evaluation) Start:03-Sep-2022 Instruction Type:Provider Instructions for Treatment How to Access Health Informa tion Online using Patient Portal and 3rd [employer] Apps Indication:Preop examination (Renamed from Pre-op evaluation) Start:03-Sep-2022 Instruction Type:Patient Education How to Access Health Informa tion Online using Patient Portal and 3rd [employer] Apps Indication:Nonsmoker Start:20-Jun-2022 Instruction Type:Patient Education Patient Instructions Indication:Nonsmoker Start:20-Jun-2022 Instruction Type:Provider Instructions for Treatment How to Access Health Informa tion Online using Patient Portal and 3rd [employer] Apps Indication:Nonsmoker Start:06-Jun-2022 Instruction Type:Patient Education Patient Instructions Indication:Nonsmoker Start:06-Jun-2022 Instruction Type:Provider Instructions for Treatment Patient Instructions Indication:Nonsmoker Start:25-Jul-2020 Instruction Type:Provider Instructions for Treatment How to Access Health Informa tion Online using Patient Portal and [employer]rd [employer] Apps Indication:Nonsmoker Start:25-Jul-2020 Instruction Type:Patient Education Patient Instructions Indication:Nonsmoker Start:02-Jul-2020 Instruction Type:Provider Instructions for Treatment How to Access Health Informa tion Online using Patient Portal and [employer]rd [employer] Apps Indication:Nonsmoker Start:02-Jul-2020 Instruction Type:Patient Education How to access health informa tion online Indication:Nonsmoker Start:22-Feb-2020 Instruction Type:Patient Education How to access health informa tion online - Detail Indication:Nonsmoker Start:22-Feb-2020 Instruction Type:Patient Education Patient Instructions Indication:Nonsmoker Start:22-Feb-2020 Instruction Type:Provider Instructions for Treatment How to access health informa tion online Indication:Nonsmoker Start:14-Oct-2019 Instruction Type:Patient Education How to access health informa tion online - Detail Indication:Nonsmoker Start:14-Oct-2019 Instruction Type:Patient Education Patient Instructions Indication:BMI 31.0-31.9,adult Start:14-Oct-2019 Instruction Type:Provider Instructions for Treatment How to access health informa tion online Indication:Nonsmoker Start:14-Jun-2019 Instruction Type:Patient Education How to access health informa tion online - Detail Indication:Nonsmoker Start:14-Jun-2019 Instruction Type:Patient Education Patient Instructions Indication:Nonsmoker Start:14-Jun-2019 Instruction Type:Provider Instructions for Treatment How to access health informa tion online Indication:Impaired fasting glucose Start:07-Mar-2019 Instruction Type:Patient Education How to access health informa tion online - Detail Indication:Impaired fasting glucose Start:07-Mar-2019 Instruction Type:Patient Education Patient Instructions Indication:BMI 30.0-30.9,adult Start:07-Mar-2019 Instruction Type:Provider Instructions for Treatment DISCONTINUED - NMR Profile ( [id number]) Indication:Elevated cholesterol Start:01-Nov-2018 Instruction Type:Patient Education DISCONTINUED - METABOLIC HERNANDES EL, COMPREHENSIVE (25939) Indication:Elevated cholesterol Start:01-Nov-2018 Instruction Type:Patient Education How to access health informa tion online Indication:Impaired fasting glucose Start:01-Nov-2018 Instruction Type:Patient Education How to access health informa tion online - Detail Indication:Impaired fasting glucose Start:01-Nov-2018 Instruction Type:Patient Education Patient Instructions Indication:Nonsmoker Start:01-Nov-2018 Instruction Type:Provider Instructions for Treatment How to access health informa tion online Indication:Nonsmoker Start:23-Mar-2018 Instruction Type:Patient Education How to access health informa tion online - Detail Indication:Nonsmoker Start:23-Mar-2018 Instruction Type:Patient Education Patient Instructions Indication:BMI 29.0-29.9,adult Start:23-Mar-2018 Instruction Type:Provider Instructions for Treatment How to access health informa tion online Indication:Nonsmoker Start:08-Feb-2018 Instruction Type:Patient Education How to access health informa tion online - Detail Indication:Nonsmoker Start:08-Feb-2018 Instruction Type:Patient Education Patient Instructions Indication:Nonsmoker Start:08-Feb-2018 Instruction Type:Provider Instructions for Treatment Patient Instructions Indication:Nonsmoker Start:16-Feb-2017 Instruction Type:Provider Instructions for Treatment How to access health informa tion online Indication:Elevated cholesterol Start:16-Feb-2017 Instruction Type:Patient Education How to access health informa tion online - Detail Indication:Elevated cholesterol Start:16-Feb-2017 Instruction Type:Patient Education Patient Instructions Indication:Elevated cholesterol Start:16-Feb-2017 Instruction Type:Provider Instructions for Treatment How to access health informa tion online Indication:Elevated cholesterol Start:27-Oct-2016 Instruction Type:Patient Education How to access health informa tion online - Detail Indication:Elevated cholesterol Start:27-Oct-2016 Instruction Type:Patient Education Patient Instructions Indication:Elevated cholesterol Start:27-Oct-2016 Instruction Type:Provider Instructions for Treatment How to access health informa tion online Indication:Nonsmoker Start:21-Feb-2016 Instruction Type:Patient Education How to access health informa tion online - Detail Indication:Nonsmoker Start:21-Feb-2016 Instruction Type:Patient Education Patient Instructions Indication:Nonsmoker Start:21-Feb-2016 Instruction Type:Provider Instructions for Treatment [facility] Work Phone: Instructions* Name Dates Details Patient Instructions Indication:Preop examination (Renamed from Pre-op evaluation) Start:03-Sep-2022 Instruction Type:Provider Instructions for Treatment How to Access Health Informa tion Online using Patient Portal and [employer]rd [employer] Apps Indication:Preop examination (Renamed from Pre-op evaluation) Start:03-Sep-2022 Instruction Type:Patient Education How to Access Health Informa tion Online using Patient Portal and [employer]rd [employer] Apps Indication:Nonsmoker Start:20-Jun-2022 Instruction Type:Patient Education Patient Instructions Indication:Nonsmoker Start:20-Jun-2022 Instruction Type:Provider Instructions for Treatment How to Access Health Informa tion Online using Patient Portal and [employer]rd [employer] Apps Indication:Nonsmoker Start:06-Jun-2022 Instruction Type:Patient Education Patient Instructions Indication:Nonsmoker Start:06-Jun-2022 Instruction Type:Provider Instructions for Treatment Patient Instructions Indication:Nonsmoker Start:25-Jul-2020 Instruction Type:Provider Instructions for Treatment How to Access Health Informa tion Online using Patient Portal and [employer]rd [employer] Apps Indication:Nonsmoker Start:25-Jul-2020 Instruction Type:Patient Education Patient Instructions Indication:Nonsmoker Start:02-Jul-2020 Instruction Type:Provider Instructions for Treatment How to Access Health Informa tion Online using Patient Portal and [employer]rd [employer] Apps Indication:Nonsmoker Start:02-Jul-2020 Instruction Type:Patient Education How to access health informa tion online Indication:Nonsmoker Start:22-Feb-2020 Instruction Type:Patient Education How to access health informa tion online - Detail Indication:Nonsmoker Start:22-Feb-2020 Instruction Type:Patient Education Patient Instructions Indication:Nonsmoker Start:22-Feb-2020 Instruction Type:Provider Instructions for Treatment How to access health informa tion online Indication:Nonsmoker Start:14-Oct-2019 Instruction Type:Patient Education How to access health informa tion online - Detail Indication:Nonsmoker Start:14-Oct-2019 Instruction Type:Patient Education Patient Instructions Indication:BMI 31.0-31.9,adult Start:14-Oct-2019 Instruction Type:Provider Instructions for Treatment How to access health informa tion online Indication:Nonsmoker Start:14-Jun-2019 Instruction Type:Patient Education How to access health informa tion online - Detail Indication:Nonsmoker Start:14-Jun-2019 Instruction Type:Patient Education Patient Instructions Indication:Nonsmoker Start:14-Jun-2019 Instruction Type:Provider Instructions for Treatment How to access health informa tion online Indication:Impaired fasting glucose Start:07-Mar-2019 Instruction Type:Patient Education How to access health informa tion online - Detail Indication:Impaired fasting glucose Start:07-Mar-2019 Instruction Type:Patient Education Patient Instructions Indication:BMI 30.0-30.9,adult Start:07-Mar-2019 Instruction Type:Provider Instructions for Treatment DISCONTINUED - NMR Profile ( [id number]) Indication:Elevated cholesterol Start:01-Nov-2018 Instruction Type:Patient Education DISCONTINUED - METABOLIC HERNANDES EL, COMPREHENSIVE ([id number]) Indication:Elevated cholesterol Start:01-Nov-2018 Instruction Type:Patient Education How to access health informa tion online Indication:Impaired fasting glucose Start:01-Nov-2018 Instruction Type:Patient Education How to access health informa tion online - Detail Indication:Impaired fasting glucose Start:01-Nov-2018 Instruction Type:Patient Education Patient Instructions Indication:Nonsmoker Start:01-Nov-2018 Instruction Type:Provider Instructions for Treatment How to access health informa tion online Indication:Nonsmoker Start:23-Mar-2018 Instruction Type:Patient Education How to access health informa tion online - Detail Indication:Nonsmoker Start:23-Mar-2018 Instruction Type:Patient Education Patient Instructions Indication:BMI 29.0-29.9,adult Start:23-Mar-2018 Instruction Type:Provider Instructions for Treatment How to access health informa tion online Indication:Nonsmoker Start:08-Feb-2018 Instruction Type:Patient Education How to access health informa tion online - Detail Indication:Nonsmoker Start:08-Feb-2018 Instruction Type:Patient Education Patient Instructions Indication:Nonsmoker Start:08-Feb-2018 Instruction Type:Provider Instructions for Treatment Patient Instructions Indication:Nonsmoker Start:16-Feb-2017 Instruction Type:Provider Instructions for Treatment How to access health informa tion online Indication:Elevated cholesterol Start:16-Feb-2017 Instruction Type:Patient Education How to access health informa tion online - Detail Indication:Elevated cholesterol Start:16-Feb-2017 Instruction Type:Patient Education Patient Instructions Indication:Elevated cholesterol Start:16-Feb-2017 Instruction Type:Provider Instructions for Treatment How to access health informa tion online Indication:Elevated cholesterol Start:27-Oct-2016 Instruction Type:Patient Education How to access health informa tion online - Detail Indication:Elevated cholesterol Start:27-Oct-2016 Instruction Type:Patient Education Patient Instructions Indication:Elevated cholesterol Start:27-Oct-2016 Instruction Type:Provider Instructions for Treatment How to access health informa tion online Indication:Nonsmoker Start:21-Feb-2016 Instruction Type:Patient Education How to access health informa tion online - Detail Indication:Nonsmoker Start:21-Feb-2016 Instruction Type:Patient Education Patient Instructions Indication:Nonsmoker Start:21-Feb-2016 Instruction Type:Provider Instructions for Treatment [facility] Work Phone: Family History Unknown Family Member Name Dates Details Brother 1 Comments:high cholesterol, O A, Afib, HTN Status:Active Father Comments:HTN, Hypercholester ol, PVD Status:Active Maternal Grandfather Comments:CVA Status:Active Maternal Grandmother Comments:Leukemia Status:Active Mother Comments:Afib, OA, HTN, hype rcholesterol Status:Active Paternal Grandfather Comments:[place] Status:Active Paternal Grandmother Status:Active Sister 1 Comments:Arthritis, High cho lesterol Status:Active Unknown Family Member Name Dates Details Brother 1 Comments:high cholesterol, O A, Afib, HTN Status:Active Father Comments:HTN, Hypercholester ol, PVD Status:Active Maternal Grandfather Comments:CVA Status:Active Maternal Grandmother Comments:Leukemia Status:Active Mother Comments:Afib, OA, HTN, hype rcholesterol Status:Active Paternal Grandfather Comments:[place] Status:Active Paternal Grandmother Status:Active Sister 1 Comments:Arthritis, High cho lesterol Status:Active Unknown Family Member Name Dates Details Brother 1 Comments:high cholesterol, O A, Afib, HTN Status:Active Father Comments:HTN, Hypercholester ol, PVD Status:Active Maternal Grandfather Comments:CVA Status:Active Maternal Grandmother Comments:Leukemia Status:Active Mother Comments:Afib, OA, HTN, hype rcholesterol Status:Active Paternal Grandfather Comments:[place] Status:Active Paternal Grandmother Status:Active Sister 1 Comments:Arthritis, High cho lesterol Status:Active Unknown Family Member Name Dates Details Brother 1 Comments:high cholesterol, O A, Afib, HTN Status:Active Father Comments:HTN, Hypercholester ol, PVD Status:Active Maternal Grandfather Comments:CVA Status:Active Maternal Grandmother Comments:Leukemia Status:Active Mother Comments:Afib, OA, HTN, hype rcholesterol Status:Active Paternal Grandfather Comments:[place] Status:Active Paternal Grandmother Status:Active Sister 1 Comments:Arthritis, High cho lesterol Status:Active Unknown Family Member Name Dates Details Brother 1 Comments:high cholesterol, O A, Afib, HTN Status:Active Father Comments:HTN, Hypercholester ol, PVD Status:Active Maternal Grandfather Comments:CVA Status:Active Maternal Grandmother Comments:Leukemia Status:Active Mother Comments:Afib, OA, HTN, hype rcholesterol Status:Active Paternal Grandfather Comments:[place] Status:Active Paternal Grandmother Status:Active Sister 1 Comments:Arthritis, High cho lesterol Status:Active Unknown Family Member Name Dates Details Brother 1 Comments:high cholesterol, O A, Afib, HTN Status:Active Father Comments:HTN, Hypercholester ol, PVD Status:Active Maternal Grandfather Comments:CVA Status:Active Maternal Grandmother Comments:Leukemia Status:Active Mother Comments:Afib, OA, HTN, hype rcholesterol Status:Active Paternal Grandfather Comments:[place] Status:Active Paternal Grandmother Status:Active Sister 1 Comments:Arthritis, High cho lesterol Status:Active Unknown Family Member Name Dates Details Brother 1 Comments:high cholesterol, O A, Afib, HTN Status:Active Father Comments:HTN, Hypercholester ol, PVD Status:Active Maternal Grandfather Comments:CVA Status:Active Maternal Grandmother Comments:Leukemia Status:Active Mother Comments:Afib, OA, HTN, hype rcholesterol Status:Active Paternal Grandfather Comments:[place] Status:Active Paternal Grandmother Status:Active Sister 1 Comments:Arthritis, High cho lesterol Status:Active Unknown Family Member Name Dates Details Brother 1 Comments:high cholesterol, O A, Afib, HTN Status:Active Father Comments:HTN, Hypercholester ol, PVD Status:Active Maternal Grandfather Comments:CVA Status:Active Maternal Grandmother Comments:Leukemia Status:Active Mother Comments:Afib, OA, HTN, hype rcholesterol Status:Active Paternal Grandfather Comments:[place] Status:Active Paternal Grandmother Status:Active Sister 1 Comments:Arthritis, High cho lesterol Status:Active Unknown Family Member Name Dates Details Brother 1 Comments:high cholesterol, O A, Afib, HTN Status:Active Father Comments:HTN, Hypercholester ol, PVD Status:Active Maternal Grandfather Comments:CVA Status:Active Maternal Grandmother Comments:Leukemia Status:Active Mother Comments:Afib, OA, HTN, hype rcholesterol Status:Active Paternal Grandfather Comments:[place] Status:Active Paternal Grandmother Status:Active Sister 1 Comments:Arthritis, High cho lesterol Status:Active Unknown Family Member Name Dates Details Brother 1 Comments:high cholesterol, O A, Afib, HTN Status:Active Father Comments:HTN, Hypercholester ol, PVD Status:Active Maternal Grandfather Comments:CVA Status:Active Maternal Grandmother Comments:Leukemia Status:Active Mother Comments:Afib, OA, HTN, hype rcholesterol Status:Active Paternal Grandfather Comments:[place] Status:Active Paternal Grandmother Status:Active Sister 1 Comments:Arthritis, High cho lesterol Status:Active Unknown Family Member Name Dates Details Brother 1 Comments:high cholesterol, O A, Afib, HTN Status:Active Father Comments:HTN, Hypercholester ol, PVD Status:Active Maternal Grandfather Comments:CVA Status:Active Maternal Grandmother Comments:Leukemia Status:Active Mother Comments:Afib, OA, HTN, hype rcholesterol Status:Active Paternal Grandfather Comments:[place] Status:Active Paternal Grandmother Status:Active Sister 1 Comments:Arthritis, High cho lesterol Status:Active Unknown Family Member Name Dates Details Brother 1 Comments:high cholesterol, O A, Afib, HTN Status:Active Father Comments:HTN, Hypercholester ol, PVD Status:Active Maternal Grandfather Comments:CVA Status:Active Maternal Grandmother Comments:Leukemia Status:Active Mother Comments:Afib, OA, HTN, hype rcholesterol Status:Active Paternal Grandfather Comments:[place] Status:Active Paternal Grandmother Status:Active Sister 1 Comments:Arthritis, High cho lesterol Status:Active Unknown Family Member Name Dates Details Brother 1 Comments:high cholesterol, O A, Afib, HTN Status:Active Father Comments:HTN, Hypercholester ol, PVD Status:Active Maternal Grandfather Comments:CVA Status:Active Maternal Grandmother Comments:Leukemia Status:Active Mother Comments:Afib, OA, HTN, hype rcholesterol Status:Active Paternal Grandfather Comments:[place] Status:Active Paternal Grandmother Status:Active Sister 1 Comments:Arthritis, High cho lesterol Status:Active Unknown Family Member Name Dates Details Brother 1 Comments:high cholesterol, O A, Afib, HTN Status:Active Father Comments:HTN, Hypercholester ol, PVD Status:Active Maternal Grandfather Comments:CVA Status:Active Maternal Grandmother Comments:Leukemia Status:Active Mother Comments:Afib, OA, HTN, hype rcholesterol Status:Active Paternal Grandfather Comments:[place] Status:Active Paternal Grandmother Status:Active Sister 1 Comments:Arthritis, High cho lesterol Status:Active Unknown Family Member Name Dates Details Brother 1 Comments:high cholesterol, O A, Afib, HTN Status:Active Father Comments:HTN, Hypercholester ol, PVD Status:Active Maternal Grandfather Comments:CVA Status:Active Maternal Grandmother Comments:Leukemia Status:Active Mother Comments:Afib, OA, HTN, hype rcholesterol Status:Active Paternal Grandfather Comments:[place] Status:Active Paternal Grandmother Status:Active Sister 1 Comments:Arthritis, High cho lesterol Status:Active Unknown Family Member Name Dates Details Brother 1 Comments:high cholesterol, O A, Afib, HTN Status:Active Father Comments:HTN, Hypercholester ol, PVD Status:Active Maternal Grandfather Comments:CVA Status:Active Maternal Grandmother Comments:Leukemia Status:Active Mother Comments:Afib, OA, HTN, hype rcholesterol Status:Active Paternal Grandfather Comments:[place] Status:Active Paternal Grandmother Status:Active Sister 1 Comments:Arthritis, High cho lesterol Status:Active Unknown Family Member Name Dates Details Brother 1 Comments:high cholesterol, O A, Afib, HTN Status:Active Father Comments:HTN, Hypercholester ol, PVD Status:Active Maternal Grandfather Comments:CVA Status:Active Maternal Grandmother Comments:Leukemia Status:Active Mother Comments:Afib, OA, HTN, hype rcholesterol Status:Active Paternal Grandfather Comments:[place] Status:Active Paternal Grandmother Status:Active Sister 1 Comments:Arthritis, High cho lesterol Status:Active Unknown Family Member Name Dates Details Brother 1 Comments:high cholesterol, O A, Afib, HTN Status:Active Father Comments:HTN, Hypercholester ol, PVD Status:Active Maternal Grandfather Comments:CVA Status:Active Maternal Grandmother Comments:Leukemia Status:Active Mother Comments:Afib, OA, HTN, hype rcholesterol Status:Active Paternal Grandfather Comments:[place] Status:Active Paternal Grandmother Status:Active Sister 1 Comments:Arthritis, High cho lesterol Status:Active Unknown Family Member Name Dates Details Brother 1 Comments:high cholesterol, O A, Afib, HTN Status:Active Father Comments:HTN, Hypercholester ol, PVD Status:Active Maternal Grandfather Comments:CVA Status:Active Maternal Grandmother Comments:Leukemia Status:Active Mother Comments:Afib, OA, HTN, hype rcholesterol Status:Active Paternal Grandfather Comments:[place] Status:Active Paternal Grandmother Status:Active Sister 1 Comments:Arthritis, High cho lesterol Status:Active Unknown Family Member Name Dates Details Brother 1 Comments:high cholesterol, O A, Afib, HTN Status:Active Father Comments:HTN, Hypercholester ol, PVD Status:Active Maternal Grandfather Comments:CVA Status:Active Maternal Grandmother Comments:Leukemia Status:Active Mother Comments:Afib, OA, HTN, hype rcholesterol Status:Active Paternal Grandfather Comments:[place] Status:Active Paternal Grandmother Status:Active Sister 1 Comments:Arthritis, High cho lesterol Status:Active Unknown Family Member Name Dates Details Brother 1 Comments:high cholesterol, O A, Afib, HTN Status:Active Father Comments:HTN, Hypercholester ol, PVD Status:Active Maternal Grandfather Comments:CVA Status:Active Maternal Grandmother Comments:Leukemia Status:Active Mother Comments:Afib, OA, HTN, hype rcholesterol Status:Active Paternal Grandfather Comments:[place] Status:Active Paternal Grandmother Status:Active Sister 1 Comments:Arthritis, High cho lesterol Status:Active Unknown Family Member Name Dates Details Brother 1 Comments:high cholesterol, O A, Afib, HTN Status:Active Father Comments:HTN, Hypercholester ol, PVD Status:Active Maternal Grandfather Comments:CVA Status:Active Maternal Grandmother Comments:Leukemia Status:Active Mother Comments:Afib, OA, HTN, hype rcholesterol Status:Active Paternal Grandfather Comments:[place] Status:Active Paternal Grandmother Status:Active Sister 1 Comments:Arthritis, High cho lesterol Status:Active Unknown Family Member Name Dates Details Brother 1 Comments:high cholesterol, O A, Afib, HTN Status:Active Father Comments:HTN, Hypercholester ol, PVD Status:Active Maternal Grandfather Comments:CVA Status:Active Maternal Grandmother Comments:Leukemia Status:Active Mother Comments:Afib, OA, HTN, hype rcholesterol Status:Active Paternal Grandfather Comments:[place] Status:Active Paternal Grandmother Status:Active Sister 1 Comments:Arthritis, High cho lesterol Status:Active Unknown Family Member Name Dates Details Brother 1 Comments:high cholesterol, O A, Afib, HTN Status:Active Father Comments:HTN, Hypercholester ol, PVD Status:Active Maternal Grandfather Comments:CVA Status:Active Maternal Grandmother Comments:Leukemia Status:Active Mother Comments:Afib, OA, HTN, hype rcholesterol Status:Active Paternal Grandfather Comments:[place] Status:Active Paternal Grandmother Status:Active Sister 1 Comments:Arthritis, High cho lesterol Status:Active Unknown Family Member Name Dates Details Brother 1 Comments:high cholesterol, O A, Afib, HTN Status:Active Father Comments:HTN, Hypercholester ol, PVD Status:Active Maternal Grandfather Comments:CVA Status:Active Maternal Grandmother Comments:Leukemia Status:Active Mother Comments:Afib, OA, HTN, hype rcholesterol Status:Active Paternal Grandfather Comments:[place] Status:Active Paternal Grandmother Status:Active Sister 1 Comments:Arthritis, High cho lesterol Status:Active Unknown Family Member Name Dates Details Brother 1 Comments:high cholesterol, O A, Afib, HTN Status:Active Father Comments:HTN, Hypercholester ol, PVD Status:Active Maternal Grandfather Comments:CVA Status:Active Maternal Grandmother Comments:Leukemia Status:Active Mother Comments:Afib, OA, HTN, hype rcholesterol Status:Active Paternal Grandfather Comments:[place] Status:Active Paternal Grandmother Status:Active Sister 1 Comments:Arthritis, High cho lesterol Status:Active Unknown Family Member Name Dates Details Brother 1 Comments:high cholesterol, O A, Afib, HTN Status:Active Father Comments:HTN, Hypercholester ol, PVD Status:Active Maternal Grandfather Comments:CVA Status:Active Maternal Grandmother Comments:Leukemia Status:Active Mother Comments:Afib, OA, HTN, hype rcholesterol Status:Active Paternal Grandfather Comments:[place] Status:Active Paternal Grandmother Status:Active Sister 1 Comments:Arthritis, High cho lesterol Status:Active Instructions Name Dates Details Nonsmoker : How to access he alth information online Indication:Nonsmoker Nonsmoker : How to access he alth information online - Detail Indication:Nonsmoker BMI 29.0-29.9,adult : Patien t Instructions Indication:BMI 29.0-29.9,adult Nonsmoker : Patient Instruct ions Indication:Nonsmoker Elevated cholesterol : How t o access health information online Indication:Elevated cholesterol Elevated cholesterol : How t o access health information online - Detail Indication:Elevated cholesterol Elevated cholesterol : Patie nt Instructions Indication:Elevated cholesterol Name Dates Details Nonsmoker : How to access he alth information online Indication:Nonsmoker Nonsmoker : How to access he alth information online - Detail Indication:Nonsmoker BMI 29.0-29.9,adult : Patien t Instructions Indication:BMI 29.0-29.9,adult Nonsmoker : Patient Instruct ions Indication:Nonsmoker Elevated cholesterol : How t o access health information online Indication:Elevated cholesterol Elevated cholesterol : How t o access health information online - Detail Indication:Elevated cholesterol Elevated cholesterol : Patie nt Instructions Indication:Elevated cholesterol Name Dates Details Nonsmoker : How to access he alth information online Indication:Nonsmoker Nonsmoker : How to access he alth information online - Detail Indication:Nonsmoker BMI 29.0-29.9,adult : Patien t Instructions Indication:BMI 29.0-29.9,adult Nonsmoker : Patient Instruct ions Indication:Nonsmoker Elevated cholesterol : How t o access health information online Indication:Elevated cholesterol Elevated cholesterol : How t o access health information online - Detail Indication:Elevated cholesterol Elevated cholesterol : Patie nt Instructions Indication:Elevated cholesterol Name Dates Details DISCONTINUED - NMR Profile ( [id number]) Indication:Elevated cholesterol Start:01-Nov-2018 Instruction Type:Patient Education DISCONTINUED - METABOLIC KAROL EVANS ([id number]) Indication:Elevated cholesterol Start:01-Nov-2018 Instruction Type:Patient Education How to access health informa tion online Indication:Impaired fasting glucose Start:01-Nov-2018 Instruction Type:Patient Education How to access health informa tion online - Detail Indication:Impaired fasting glucose Start:01-Nov-2018 Instruction Type:Patient Education Patient Instructions Indication:Nonsmoker Start:01-Nov-2018 Instruction Type:Provider Instructions for Treatment How to access health informa tion online Indication:Nonsmoker Start:23-Mar-2018 Instruction Type:Patient Education How to access health informa tion online - Detail Indication:Nonsmoker Start:23-Mar-2018 Instruction Type:Patient Education Patient Instructions Indication:BMI 29.0-29.9,adult Start:23-Mar-2018 Instruction Type:Provider Instructions for Treatment How to access health informa tion online Indication:Nonsmoker Start:08-Feb-2018 Instruction Type:Patient Education How to access health informa tion online - Detail Indication:Nonsmoker Start:08-Feb-2018 Instruction Type:Patient Education Patient Instructions Indication:Nonsmoker Start:08-Feb-2018 Instruction Type:Provider Instructions for Treatment Patient Instructions Indication:Nonsmoker Start:16-Feb-2017 Instruction Type:Provider Instructions for Treatment How to access health informa tion online Indication:Elevated cholesterol Start:16-Feb-2017 Instruction Type:Patient Education How to access health informa tion online - Detail Indication:Elevated cholesterol Start:16-Feb-2017 Instruction Type:Patient Education Patient Instructions Indication:Elevated cholesterol Start:16-Feb-2017 Instruction Type:Provider Instructions for Treatment How to access health informa tion online Indication:Elevated cholesterol Start:27-Oct-2016 Instruction Type:Patient Education How to access health informa tion online - Detail Indication:Elevated cholesterol Start:27-Oct-2016 Instruction Type:Patient Education Patient Instructions Indication:Elevated cholesterol Start:27-Oct-2016 Instruction Type:Provider Instructions for Treatment How to access health informa tion online Indication:Nonsmoker Start:21-Feb-2016 Instruction Type:Patient Education How to access health informa tion online - Detail Indication:Nonsmoker Start:21-Feb-2016 Instruction Type:Patient Education Patient Instructions Indication:Nonsmoker Start:21-Feb-2016 Instruction Type:Provider Instructions for Treatment Name Dates Details DISCONTINUED - NMR Profile ( [id number]) Indication:Elevated cholesterol Start:01-Nov-2018 Instruction Type:Patient Education DISCONTINUED - METABOLIC HERNANDES EL, COMPREHENSIVE ([id number]) Indication:Elevated cholesterol Start:01-Nov-2018 Instruction Type:Patient Education How to access health informa tion online Indication:Impaired fasting glucose Start:01-Nov-2018 Instruction Type:Patient Education How to access health informa tion online - Detail Indication:Impaired fasting glucose Start:01-Nov-2018 Instruction Type:Patient Education Patient Instructions Indication:Nonsmoker Start:01-Nov-2018 Instruction Type:Provider Instructions for Treatment How to access health informa tion online Indication:Nonsmoker Start:23-Mar-2018 Instruction Type:Patient Education How to access health informa tion online - Detail Indication:Nonsmoker Start:23-Mar-2018 Instruction Type:Patient Education Patient Instructions Indication:BMI 29.0-29.9,adult Start:23-Mar-2018 Instruction Type:Provider Instructions for Treatment How to access health informa tion online Indication:Nonsmoker Start:08-Feb-2018 Instruction Type:Patient Education How to access health informa tion online - Detail Indication:Nonsmoker Start:08-Feb-2018 Instruction Type:Patient Education Patient Instructions Indication:Nonsmoker Start:08-Feb-2018 Instruction Type:Provider Instructions for Treatment Patient Instructions Indication:Nonsmoker Start:16-Feb-2017 Instruction Type:Provider Instructions for Treatment How to access health informa tion online Indication:Elevated cholesterol Start:16-Feb-2017 Instruction Type:Patient Education How to access health informa tion online - Detail Indication:Elevated cholesterol Start:16-Feb-2017 Instruction Type:Patient Education Patient Instructions Indication:Elevated cholesterol Start:16-Feb-2017 Instruction Type:Provider Instructions for Treatment How to access health informa tion online Indication:Elevated cholesterol Start:27-Oct-2016 Instruction Type:Patient Education How to access health informa tion online - Detail Indication:Elevated cholesterol Start:27-Oct-2016 Instruction Type:Patient Education Patient Instructions Indication:Elevated cholesterol Start:27-Oct-2016 Instruction Type:Provider Instructions for Treatment How to access health informa tion online Indication:Nonsmoker Start:21-Feb-2016 Instruction Type:Patient Education How to access health informa tion online - Detail Indication:Nonsmoker Start:21-Feb-2016 Instruction Type:Patient Education Patient Instructions Indication:Nonsmoker Start:21-Feb-2016 Instruction Type:Provider Instructions for Treatment Name Dates Details How to access health informa tion online Indication:Impaired fasting glucose Start:07-Mar-2019 Instruction Type:Patient Education How to access health informa tion online - Detail Indication:Impaired fasting glucose Start:07-Mar-2019 Instruction Type:Patient Education Patient Instructions Indication:BMI 30.0-30.9,adult Start:07-Mar-2019 Instruction Type:Provider Instructions for Treatment DISCONTINUED - NMR Profile ( [id number]) Indication:Elevated cholesterol Start:01-Nov-2018 Instruction Type:Patient Education DISCONTINUED - METABOLIC HERNANDES EL, COMPREHENSIVE ([id number]) Indication:Elevated cholesterol Start:01-Nov-2018 Instruction Type:Patient Education How to access health informa tion online Indication:Impaired fasting glucose Start:01-Nov-2018 Instruction Type:Patient Education How to access health informa tion online - Detail Indication:Impaired fasting glucose Start:01-Nov-2018 Instruction Type:Patient Education Patient Instructions Indication:Nonsmoker Start:01-Nov-2018 Instruction Type:Provider Instructions for Treatment How to access health informa tion online Indication:Nonsmoker Start:23-Mar-2018 Instruction Type:Patient Education How to access health informa tion online - Detail Indication:Nonsmoker Start:23-Mar-2018 Instruction Type:Patient Education Patient Instructions Indication:BMI 29.0-29.9,adult Start:23-Mar-2018 Instruction Type:Provider Instructions for Treatment How to access health informa tion online Indication:Nonsmoker Start:08-Feb-2018 Instruction Type:Patient Education How to access health informa tion online - Detail Indication:Nonsmoker Start:08-Feb-2018 Instruction Type:Patient Education Patient Instructions Indication:Nonsmoker Start:08-Feb-2018 Instruction Type:Provider Instructions for Treatment Patient Instructions Indication:Nonsmoker Start:16-Feb-2017 Instruction Type:Provider Instructions for Treatment How to access health informa tion online Indication:Elevated cholesterol Start:16-Feb-2017 Instruction Type:Patient Education How to access health informa tion online - Detail Indication:Elevated cholesterol Start:16-Feb-2017 Instruction Type:Patient Education Patient Instructions Indication:Elevated cholesterol Start:16-Feb-2017 Instruction Type:Provider Instructions for Treatment How to access health informa tion online Indication:Elevated cholesterol Start:27-Oct-2016 Instruction Type:Patient Education How to access health informa tion online - Detail Indication:Elevated cholesterol Start:27-Oct-2016 Instruction Type:Patient Education Patient Instructions Indication:Elevated cholesterol Start:27-Oct-2016 Instruction Type:Provider Instructions for Treatment How to access health informa tion online Indication:Nonsmoker Start:21-Feb-2016 Instruction Type:Patient Education How to access health informa tion online - Detail Indication:Nonsmoker Start:21-Feb-2016 Instruction Type:Patient Education Patient Instructions Indication:Nonsmoker Start:21-Feb-2016 Instruction Type:Provider Instructions for Treatment Name Dates Details How to access health informa tion online Indication:Nonsmoker Start:14-Oct-2019 Instruction Type:Patient Education How to access health informa tion online - Detail Indication:Nonsmoker Start:14-Oct-2019 Instruction Type:Patient Education Patient Instructions Indication:BMI 31.0-31.9,adult Start:14-Oct-2019 Instruction Type:Provider Instructions for Treatment How to access health informa tion online Indication:Nonsmoker Start:14-Jun-2019 Instruction Type:Patient Education How to access health informa tion online - Detail Indication:Nonsmoker Start:14-Jun-2019 Instruction Type:Patient Education Patient Instructions Indication:Nonsmoker Start:14-Jun-2019 Instruction Type:Provider Instructions for Treatment How to access health informa tion online Indication:Impaired fasting glucose Start:07-Mar-2019 Instruction Type:Patient Education How to access health informa tion online - Detail Indication:Impaired fasting glucose Start:07-Mar-2019 Instruction Type:Patient Education Patient Instructions Indication:BMI 30.0-30.9,adult Start:07-Mar-2019 Instruction Type:Provider Instructions for Treatment DISCONTINUED - NMR Profile ( [id number]) Indication:Elevated cholesterol Start:01-Nov-2018 Instruction Type:Patient Education DISCONTINUED - METABOLIC HERNANDES EL, COMPREHENSIVE ([id number]) Indication:Elevated cholesterol Start:01-Nov-2018 Instruction Type:Patient Education How to access health informa tion online Indication:Impaired fasting glucose Start:01-Nov-2018 Instruction Type:Patient Education How to access health informa tion online - Detail Indication:Impaired fasting glucose Start:01-Nov-2018 Instruction Type:Patient Education Patient Instructions Indication:Nonsmoker Start:01-Nov-2018 Instruction Type:Provider Instructions for Treatment How to access health informa tion online Indication:Nonsmoker Start:23-Mar-2018 Instruction Type:Patient Education How to access health informa tion online - Detail Indication:Nonsmoker Start:23-Mar-2018 Instruction Type:Patient Education Patient Instructions Indication:BMI 29.0-29.9,adult Start:23-Mar-2018 Instruction Type:Provider Instructions for Treatment How to access health informa tion online Indication:Nonsmoker Start:08-Feb-2018 Instruction Type:Patient Education How to access health informa tion online - Detail Indication:Nonsmoker Start:08-Feb-2018 Instruction Type:Patient Education Patient Instructions Indication:Nonsmoker Start:08-Feb-2018 Instruction Type:Provider Instructions for Treatment Patient Instructions Indication:Nonsmoker Start:16-Feb-2017 Instruction Type:Provider Instructions for Treatment How to access health informa tion online Indication:Elevated cholesterol Start:16-Feb-2017 Instruction Type:Patient Education How to access health informa tion online - Detail Indication:Elevated cholesterol Start:16-Feb-2017 Instruction Type:Patient Education Patient Instructions Indication:Elevated cholesterol Start:16-Feb-2017 Instruction Type:Provider Instructions for Treatment How to access health informa tion online Indication:Elevated cholesterol Start:27-Oct-2016 Instruction Type:Patient Education How to access health informa tion online - Detail Indication:Elevated cholesterol Start:27-Oct-2016 Instruction Type:Patient Education Patient Instructions Indication:Elevated cholesterol Start:27-Oct-2016 Instruction Type:Provider Instructions for Treatment How to access health informa tion online Indication:Nonsmoker Start:21-Feb-2016 Instruction Type:Patient Education How to access health informa tion online - Detail Indication:Nonsmoker Start:21-Feb-2016 Instruction Type:Patient Education Patient Instructions Indication:Nonsmoker Start:21-Feb-2016 Instruction Type:Provider Instructions for Treatment Name Dates Details How to access health informa tion online Indication:Nonsmoker Start:22-Feb-2020 Instruction Type:Patient Education How to access health informa tion online - Detail Indication:Nonsmoker Start:22-Feb-2020 Instruction Type:Patient Education Patient Instructions Indication:Nonsmoker Start:22-Feb-2020 Instruction Type:Provider Instructions for Treatment How to access health informa tion online Indication:Nonsmoker Start:14-Oct-2019 Instruction Type:Patient Education How to access health informa tion online - Detail Indication:Nonsmoker Start:14-Oct-2019 Instruction Type:Patient Education Patient Instructions Indication:BMI 31.0-31.9,adult Start:14-Oct-2019 Instruction Type:Provider Instructions for Treatment How to access health informa tion online Indication:Nonsmoker Start:14-Jun-2019 Instruction Type:Patient Education How to access health informa tion online - Detail Indication:Nonsmoker Start:14-Jun-2019 Instruction Type:Patient Education Patient Instructions Indication:Nonsmoker Start:14-Jun-2019 Instruction Type:Provider Instructions for Treatment How to access health informa tion online Indication:Impaired fasting glucose Start:07-Mar-2019 Instruction Type:Patient Education How to access health informa tion online - Detail Indication:Impaired fasting glucose Start:07-Mar-2019 Instruction Type:Patient Education Patient Instructions Indication:BMI 30.0-30.9,adult Start:07-Mar-2019 Instruction Type:Provider Instructions for Treatment DISCONTINUED - NMR Profile ( [id number]) Indication:Elevated cholesterol Start:01-Nov-2018 Instruction Type:Patient Education DISCONTINUED - METABOLIC HERNANDES EL, COMPREHENSIVE ([id number]) Indication:Elevated cholesterol Start:01-Nov-2018 Instruction Type:Patient Education How to access health informa tion online Indication:Impaired fasting glucose Start:01-Nov-2018 Instruction Type:Patient Education How to access health informa tion online - Detail Indication:Impaired fasting glucose Start:01-Nov-2018 Instruction Type:Patient Education Patient Instructions Indication:Nonsmoker Start:01-Nov-2018 Instruction Type:Provider Instructions for Treatment How to access health informa tion online Indication:Nonsmoker Start:23-Mar-2018 Instruction Type:Patient Education How to access health informa tion online - Detail Indication:Nonsmoker Start:23-Mar-2018 Instruction Type:Patient Education Patient Instructions Indication:BMI 29.0-29.9,adult Start:23-Mar-2018 Instruction Type:Provider Instructions for Treatment How to access health informa tion online Indication:Nonsmoker Start:08-Feb-2018 Instruction Type:Patient Education How to access health informa tion online - Detail Indication:Nonsmoker Start:08-Feb-2018 Instruction Type:Patient Education Patient Instructions Indication:Nonsmoker Start:08-Feb-2018 Instruction Type:Provider Instructions for Treatment Patient Instructions Indication:Nonsmoker Start:16-Feb-2017 Instruction Type:Provider Instructions for Treatment How to access health informa tion online Indication:Elevated cholesterol Start:16-Feb-2017 Instruction Type:Patient Education How to access health informa tion online - Detail Indication:Elevated cholesterol Start:16-Feb-2017 Instruction Type:Patient Education Patient Instructions Indication:Elevated cholesterol Start:16-Feb-2017 Instruction Type:Provider Instructions for Treatment How to access health informa tion online Indication:Elevated cholesterol Start:27-Oct-2016 Instruction Type:Patient Education How to access health informa tion online - Detail Indication:Elevated cholesterol Start:27-Oct-2016 Instruction Type:Patient Education Patient Instructions Indication:Elevated cholesterol Start:27-Oct-2016 Instruction Type:Provider Instructions for Treatment How to access health informa tion online Indication:Nonsmoker Start:21-Feb-2016 Instruction Type:Patient Education How to access health informa tion online - Detail Indication:Nonsmoker Start:21-Feb-2016 Instruction Type:Patient Education Patient Instructions Indication:Nonsmoker Start:21-Feb-2016 Instruction Type:Provider Instructions for Treatment Name Dates Details Patient Instructions Indication:Nonsmoker Start:02-Jul-2020 Instruction Type:Provider Instructions for Treatment How to Access Health Informa tion Online using Patient Portal and 3rd [employer] Apps Indication:Nonsmoker Start:02-Jul-2020 Instruction Type:Patient Education How to access health informa tion online Indication:Nonsmoker Start:22-Feb-2020 Instruction Type:Patient Education How to access health informa tion online - Detail Indication:Nonsmoker Start:22-Feb-2020 Instruction Type:Patient Education Patient Instructions Indication:Nonsmoker Start:22-Feb-2020 Instruction Type:Provider Instructions for Treatment How to access health informa tion online Indication:Nonsmoker Start:14-Oct-2019 Instruction Type:Patient Education How to access health informa tion online - Detail Indication:Nonsmoker Start:14-Oct-2019 Instruction Type:Patient Education Patient Instructions Indication:BMI 31.0-31.9,adult Start:14-Oct-2019 Instruction Type:Provider Instructions for Treatment How to access health informa tion online Indication:Nonsmoker Start:14-Jun-2019 Instruction Type:Patient Education How to access health informa tion online - Detail Indication:Nonsmoker Start:14-Jun-2019 Instruction Type:Patient Education Patient Instructions Indication:Nonsmoker Start:14-Jun-2019 Instruction Type:Provider Instructions for Treatment How to access health informa tion online Indication:Impaired fasting glucose Start:07-Mar-2019 Instruction Type:Patient Education How to access health informa tion online - Detail Indication:Impaired fasting glucose Start:07-Mar-2019 Instruction Type:Patient Education Patient Instructions Indication:BMI 30.0-30.9,adult Start:07-Mar-2019 Instruction Type:Provider Instructions for Treatment DISCONTINUED - NMR Profile ( [id number]) Indication:Elevated cholesterol Start:01-Nov-2018 Instruction Type:Patient Education DISCONTINUED - METABOLIC HERNANDES EL, COMPREHENSIVE ([id number]) Indication:Elevated cholesterol Start:01-Nov-2018 Instruction Type:Patient Education How to access health informa tion online Indication:Impaired fasting glucose Start:01-Nov-2018 Instruction Type:Patient Education How to access health informa tion online - Detail Indication:Impaired fasting glucose Start:01-Nov-2018 Instruction Type:Patient Education Patient Instructions Indication:Nonsmoker Start:01-Nov-2018 Instruction Type:Provider Instructions for Treatment How to access health informa tion online Indication:Nonsmoker Start:23-Mar-2018 Instruction Type:Patient Education How to access health informa tion online - Detail Indication:Nonsmoker Start:23-Mar-2018 Instruction Type:Patient Education Patient Instructions Indication:BMI 29.0-29.9,adult Start:23-Mar-2018 Instruction Type:Provider Instructions for Treatment How to access health informa tion online Indication:Nonsmoker Start:08-Feb-2018 Instruction Type:Patient Education How to access health informa tion online - Detail Indication:Nonsmoker Start:08-Feb-2018 Instruction Type:Patient Education Patient Instructions Indication:Nonsmoker Start:08-Feb-2018 Instruction Type:Provider Instructions for Treatment Patient Instructions Indication:Nonsmoker Start:16-Feb-2017 Instruction Type:Provider Instructions for Treatment How to access health informa tion online Indication:Elevated cholesterol Start:16-Feb-2017 Instruction Type:Patient Education How to access health informa tion online - Detail Indication:Elevated cholesterol Start:16-Feb-2017 Instruction Type:Patient Education Patient Instructions Indication:Elevated cholesterol Start:16-Feb-2017 Instruction Type:Provider Instructions for Treatment How to access health informa tion online Indication:Elevated cholesterol Start:27-Oct-2016 Instruction Type:Patient Education How to access health informa tion online - Detail Indication:Elevated cholesterol Start:27-Oct-2016 Instruction Type:Patient Education Patient Instructions Indication:Elevated cholesterol Start:27-Oct-2016 Instruction Type:Provider Instructions for Treatment How to access health informa tion online Indication:Nonsmoker Start:21-Feb-2016 Instruction Type:Patient Education How to access health informa tion online - Detail Indication:Nonsmoker Start:21-Feb-2016 Instruction Type:Patient Education Patient Instructions Indication:Nonsmoker Start:21-Feb-2016 Instruction Type:Provider Instructions for Treatment Name Dates Details Patient Instructions Indication:Nonsmoker Start:25-Jul-2020 Instruction Type:Provider Instructions for Treatment How to Access Health Informa tion Online using Patient Portal and 3rd [employer] Apps Indication:Nonsmoker Start:25-Jul-2020 Instruction Type:Patient Education Patient Instructions Indication:Nonsmoker Start:02-Jul-2020 Instruction Type:Provider Instructions for Treatment How to Access Health Informa tion Online using Patient Portal and 3rd [employer] Apps Indication:Nonsmoker Start:02-Jul-2020 Instruction Type:Patient Education How to access health informa tion online Indication:Nonsmoker Start:22-Feb-2020 Instruction Type:Patient Education How to access health informa tion online - Detail Indication:Nonsmoker Start:22-Feb-2020 Instruction Type:Patient Education Patient Instructions Indication:Nonsmoker Start:22-Feb-2020 Instruction Type:Provider Instructions for Treatment How to access health informa tion online Indication:Nonsmoker Start:14-Oct-2019 Instruction Type:Patient Education How to access health informa tion online - Detail Indication:Nonsmoker Start:14-Oct-2019 Instruction Type:Patient Education Patient Instructions Indication:BMI 31.0-31.9,adult Start:14-Oct-2019 Instruction Type:Provider Instructions for Treatment How to access health informa tion online Indication:Nonsmoker Start:14-Jun-2019 Instruction Type:Patient Education How to access health informa tion online - Detail Indication:Nonsmoker Start:14-Jun-2019 Instruction Type:Patient Education Patient Instructions Indication:Nonsmoker Start:14-Jun-2019 Instruction Type:Provider Instructions for Treatment How to access health informa tion online Indication:Impaired fasting glucose Start:07-Mar-2019 Instruction Type:Patient Education How to access health informa tion online - Detail Indication:Impaired fasting glucose Start:07-Mar-2019 Instruction Type:Patient Education Patient Instructions Indication:BMI 30.0-30.9,adult Start:07-Mar-2019 Instruction Type:Provider Instructions for Treatment DISCONTINUED - NMR Profile ( [id number]) Indication:Elevated cholesterol Start:01-Nov-2018 Instruction Type:Patient Education DISCONTINUED - METABOLIC HERNANDES EL, COMPREHENSIVE ([id number]) Indication:Elevated cholesterol Start:01-Nov-2018 Instruction Type:Patient Education How to access health informa tion online Indication:Impaired fasting glucose Start:01-Nov-2018 Instruction Type:Patient Education How to access health informa tion online - Detail Indication:Impaired fasting glucose Start:01-Nov-2018 Instruction Type:Patient Education Patient Instructions Indication:Nonsmoker Start:01-Nov-2018 Instruction Type:Provider Instructions for Treatment How to access health informa tion online Indication:Nonsmoker Start:23-Mar-2018 Instruction Type:Patient Education How to access health informa tion online - Detail Indication:Nonsmoker Start:23-Mar-2018 Instruction Type:Patient Education Patient Instructions Indication:BMI 29.0-29.9,adult Start:23-Mar-2018 Instruction Type:Provider Instructions for Treatment How to access health informa tion online Indication:Nonsmoker Start:08-Feb-2018 Instruction Type:Patient Education How to access health informa tion online - Detail Indication:Nonsmoker Start:08-Feb-2018 Instruction Type:Patient Education Patient Instructions Indication:Nonsmoker Start:08-Feb-2018 Instruction Type:Provider Instructions for Treatment Patient Instructions Indication:Nonsmoker Start:16-Feb-2017 Instruction Type:Provider Instructions for Treatment How to access health informa tion online Indication:Elevated cholesterol Start:16-Feb-2017 Instruction Type:Patient Education How to access health informa tion online - Detail Indication:Elevated cholesterol Start:16-Feb-2017 Instruction Type:Patient Education Patient Instructions Indication:Elevated cholesterol Start:16-Feb-2017 Instruction Type:Provider Instructions for Treatment How to access health informa tion online Indication:Elevated cholesterol Start:27-Oct-2016 Instruction Type:Patient Education How to access health informa tion online - Detail Indication:Elevated cholesterol Start:27-Oct-2016 Instruction Type:Patient Education Patient Instructions Indication:Elevated cholesterol Start:27-Oct-2016 Instruction Type:Provider Instructions for Treatment How to access health informa tion online Indication:Nonsmoker Start:21-Feb-2016 Instruction Type:Patient Education How to access health informa tion online - Detail Indication:Nonsmoker Start:21-Feb-2016 Instruction Type:Patient Education Patient Instructions Indication:Nonsmoker Start:21-Feb-2016 Instruction Type:Provider Instructions for Treatment Name Dates Details Patient Instructions Indication:Nonsmoker Start:25-Jul-2020 Instruction Type:Provider Instructions for Treatment How to Access Health Informa tion Online using Patient Portal and 3rd [employer] Apps Indication:Nonsmoker Start:25-Jul-2020 Instruction Type:Patient Education Patient Instructions Indication:Nonsmoker Start:02-Jul-2020 Instruction Type:Provider Instructions for Treatment How to Access Health Informa tion Online using Patient Portal and [employer]rd [employer] Apps Indication:Nonsmoker Start:02-Jul-2020 Instruction Type:Patient Education How to access health informa tion online Indication:Nonsmoker Start:22-Feb-2020 Instruction Type:Patient Education How to access health informa tion online - Detail Indication:Nonsmoker Start:22-Feb-2020 Instruction Type:Patient Education Patient Instructions Indication:Nonsmoker Start:22-Feb-2020 Instruction Type:Provider Instructions for Treatment How to access health informa tion online Indication:Nonsmoker Start:14-Oct-2019 Instruction Type:Patient Education How to access health informa tion online - Detail Indication:Nonsmoker Start:14-Oct-2019 Instruction Type:Patient Education Patient Instructions Indication:BMI 31.0-31.9,adult Start:14-Oct-2019 Instruction Type:Provider Instructions for Treatment How to access health informa tion online Indication:Nonsmoker Start:14-Jun-2019 Instruction Type:Patient Education How to access health informa tion online - Detail Indication:Nonsmoker Start:14-Jun-2019 Instruction Type:Patient Education Patient Instructions Indication:Nonsmoker Start:14-Jun-2019 Instruction Type:Provider Instructions for Treatment How to access health informa tion online Indication:Impaired fasting glucose Start:07-Mar-2019 Instruction Type:Patient Education How to access health informa tion online - Detail Indication:Impaired fasting glucose Start:07-Mar-2019 Instruction Type:Patient Education Patient Instructions Indication:BMI 30.0-30.9,adult Start:07-Mar-2019 Instruction Type:Provider Instructions for Treatment DISCONTINUED - NMR Profile ( [id number]) Indication:Elevated cholesterol Start:01-Nov-2018 Instruction Type:Patient Education DISCONTINUED - METABOLIC HERNANDES EL, COMPREHENSIVE ([id number]) Indication:Elevated cholesterol Start:01-Nov-2018 Instruction Type:Patient Education How to access health informa tion online Indication:Impaired fasting glucose Start:01-Nov-2018 Instruction Type:Patient Education How to access health informa tion online - Detail Indication:Impaired fasting glucose Start:01-Nov-2018 Instruction Type:Patient Education Patient Instructions Indication:Nonsmoker Start:01-Nov-2018 Instruction Type:Provider Instructions for Treatment How to access health informa tion online Indication:Nonsmoker Start:23-Mar-2018 Instruction Type:Patient Education How to access health informa tion online - Detail Indication:Nonsmoker Start:23-Mar-2018 Instruction Type:Patient Education Patient Instructions Indication:BMI 29.0-29.9,adult Start:23-Mar-2018 Instruction Type:Provider Instructions for Treatment How to access health informa tion online Indication:Nonsmoker Start:08-Feb-2018 Instruction Type:Patient Education How to access health informa tion online - Detail Indication:Nonsmoker Start:08-Feb-2018 Instruction Type:Patient Education Patient Instructions Indication:Nonsmoker Start:08-Feb-2018 Instruction Type:Provider Instructions for Treatment Patient Instructions Indication:Nonsmoker Start:16-Feb-2017 Instruction Type:Provider Instructions for Treatment How to access health informa tion online Indication:Elevated cholesterol Start:16-Feb-2017 Instruction Type:Patient Education How to access health informa tion online - Detail Indication:Elevated cholesterol Start:16-Feb-2017 Instruction Type:Patient Education Patient Instructions Indication:Elevated cholesterol Start:16-Feb-2017 Instruction Type:Provider Instructions for Treatment How to access health informa tion online Indication:Elevated cholesterol Start:27-Oct-2016 Instruction Type:Patient Education How to access health informa tion online - Detail Indication:Elevated cholesterol Start:27-Oct-2016 Instruction Type:Patient Education Patient Instructions Indication:Elevated cholesterol Start:27-Oct-2016 Instruction Type:Provider Instructions for Treatment How to access health informa tion online Indication:Nonsmoker Start:21-Feb-2016 Instruction Type:Patient Education How to access health informa tion online - Detail Indication:Nonsmoker Start:21-Feb-2016 Instruction Type:Patient Education Patient Instructions Indication:Nonsmoker Start:21-Feb-2016 Instruction Type:Provider Instructions for Treatment Name Dates Details How to access health informa tion online Indication:Impaired fasting glucose Start:07-Mar-2019 Instruction Type:Patient Education How to access health informa tion online - Detail Indication:Impaired fasting glucose Start:07-Mar-2019 Instruction Type:Patient Education Patient Instructions Indication:BMI 30.0-30.9,adult Start:07-Mar-2019 Instruction Type:Provider Instructions for Treatment DISCONTINUED - NMR Profile ( [id number]) Indication:Elevated cholesterol Start:01-Nov-2018 Instruction Type:Patient Education DISCONTINUED - METABOLIC HERNANDES EL, COMPREHENSIVE ([id number]) Indication:Elevated cholesterol Start:01-Nov-2018 Instruction Type:Patient Education How to access health informa tion online Indication:Impaired fasting glucose Start:01-Nov-2018 Instruction Type:Patient Education How to access health informa tion online - Detail Indication:Impaired fasting glucose Start:01-Nov-2018 Instruction Type:Patient Education Patient Instructions Indication:Nonsmoker Start:01-Nov-2018 Instruction Type:Provider Instructions for Treatment How to access health informa tion online Indication:Nonsmoker Start:23-Mar-2018 Instruction Type:Patient Education How to access health informa tion online - Detail Indication:Nonsmoker Start:23-Mar-2018 Instruction Type:Patient Education Patient Instructions Indication:BMI 29.0-29.9,adult Start:23-Mar-2018 Instruction Type:Provider Instructions for Treatment How to access health informa tion online Indication:Nonsmoker Start:08-Feb-2018 Instruction Type:Patient Education How to access health informa tion online - Detail Indication:Nonsmoker Start:08-Feb-2018 Instruction Type:Patient Education Patient Instructions Indication:Nonsmoker Start:08-Feb-2018 Instruction Type:Provider Instructions for Treatment Patient Instructions Indication:Nonsmoker Start:16-Feb-2017 Instruction Type:Provider Instructions for Treatment How to access health informa tion online Indication:Elevated cholesterol Start:16-Feb-2017 Instruction Type:Patient Education How to access health informa tion online - Detail Indication:Elevated cholesterol Start:16-Feb-2017 Instruction Type:Patient Education Patient Instructions Indication:Elevated cholesterol Start:16-Feb-2017 Instruction Type:Provider Instructions for Treatment How to access health informa tion online Indication:Elevated cholesterol Start:27-Oct-2016 Instruction Type:Patient Education How to access health informa tion online - Detail Indication:Elevated cholesterol Start:27-Oct-2016 Instruction Type:Patient Education Patient Instructions Indication:Elevated cholesterol Start:27-Oct-2016 Instruction Type:Provider Instructions for Treatment How to access health informa tion online Indication:Nonsmoker Start:21-Feb-2016 Instruction Type:Patient Education How to access health informa tion online - Detail Indication:Nonsmoker Start:21-Feb-2016 Instruction Type:Patient Education Patient Instructions Indication:Nonsmoker Start:21-Feb-2016 Instruction Type:Provider Instructions for Treatment Name Dates Details How to access health informa tion online Indication:Impaired fasting glucose Start:01-Nov-2018 Instruction Type:Patient Education How to access health informa tion online - Detail Indication:Impaired fasting glucose Start:01-Nov-2018 Instruction Type:Patient Education Patient Instructions Indication:Impaired fasting glucose Start:01-Nov-2018 Instruction Type:Provider Instructions for Treatment How to access health informa tion online Indication:Nonsmoker Start:23-Mar-2018 Instruction Type:Patient Education How to access health informa tion online - Detail Indication:Nonsmoker Start:23-Mar-2018 Instruction Type:Patient Education Patient Instructions Indication:BMI 29.0-29.9,adult Start:23-Mar-2018 Instruction Type:Provider Instructions for Treatment How to access health informa tion online Indication:Nonsmoker Start:08-Feb-2018 Instruction Type:Patient Education How to access health informa tion online - Detail Indication:Nonsmoker Start:08-Feb-2018 Instruction Type:Patient Education Patient Instructions Indication:Nonsmoker Start:08-Feb-2018 Instruction Type:Provider Instructions for Treatment Patient Instructions Indication:Nonsmoker Start:16-Feb-2017 Instruction Type:Provider Instructions for Treatment How to access health informa tion online Indication:Elevated cholesterol Start:16-Feb-2017 Instruction Type:Patient Education How to access health informa tion online - Detail Indication:Elevated cholesterol Start:16-Feb-2017 Instruction Type:Patient Education Patient Instructions Indication:Elevated cholesterol Start:16-Feb-2017 Instruction Type:Provider Instructions for Treatment How to access health informa tion online Indication:Elevated cholesterol Start:27-Oct-2016 Instruction Type:Patient Education How to access health informa tion online - Detail Indication:Elevated cholesterol Start:27-Oct-2016 Instruction Type:Patient Education Patient Instructions Indication:Elevated cholesterol Start:27-Oct-2016 Instruction Type:Provider Instructions for Treatment How to access health informa tion online Indication:Nonsmoker Start:21-Feb-2016 Instruction Type:Patient Education How to access health informa tion online - Detail Indication:Nonsmoker Start:21-Feb-2016 Instruction Type:Patient Education Patient Instructions Indication:Nonsmoker Start:21-Feb-2016 Instruction Type:Provider Instructions for Treatment Name Dates Details How to access health informa tion online Indication:Impaired fasting glucose Start:07-Mar-2019 Instruction Type:Patient Education How to access health informa tion online - Detail Indication:Impaired fasting glucose Start:07-Mar-2019 Instruction Type:Patient Education Patient Instructions Indication:BMI 30.0-30.9,adult Start:07-Mar-2019 Instruction Type:Provider Instructions for Treatment DISCONTINUED - NMR Profile ( [id number]) Indication:Elevated cholesterol Start:01-Nov-2018 Instruction Type:Patient Education DISCONTINUED - METABOLIC HERNANDES EL, COMPREHENSIVE ([id number]) Indication:Elevated cholesterol Start:01-Nov-2018 Instruction Type:Patient Education How to access health informa tion online Indication:Impaired fasting glucose Start:01-Nov-2018 Instruction Type:Patient Education How to access health informa tion online - Detail Indication:Impaired fasting glucose Start:01-Nov-2018 Instruction Type:Patient Education Patient Instructions Indication:Nonsmoker Start:01-Nov-2018 Instruction Type:Provider Instructions for Treatment How to access health informa tion online Indication:Nonsmoker Start:23-Mar-2018 Instruction Type:Patient Education How to access health informa tion online - Detail Indication:Nonsmoker Start:23-Mar-2018 Instruction Type:Patient Education Patient Instructions Indication:BMI 29.0-29.9,adult Start:23-Mar-2018 Instruction Type:Provider Instructions for Treatment How to access health informa tion online Indication:Nonsmoker Start:08-Feb-2018 Instruction Type:Patient Education How to access health informa tion online - Detail Indication:Nonsmoker Start:08-Feb-2018 Instruction Type:Patient Education Patient Instructions Indication:Nonsmoker Start:08-Feb-2018 Instruction Type:Provider Instructions for Treatment Patient Instructions Indication:Nonsmoker Start:16-Feb-2017 Instruction Type:Provider Instructions for Treatment How to access health informa tion online Indication:Elevated cholesterol Start:16-Feb-2017 Instruction Type:Patient Education How to access health informa tion online - Detail Indication:Elevated cholesterol Start:16-Feb-2017 Instruction Type:Patient Education Patient Instructions Indication:Elevated cholesterol Start:16-Feb-2017 Instruction Type:Provider Instructions for Treatment How to access health informa tion online Indication:Elevated cholesterol Start:27-Oct-2016 Instruction Type:Patient Education How to access health informa tion online - Detail Indication:Elevated cholesterol Start:27-Oct-2016 Instruction Type:Patient Education Patient Instructions Indication:Elevated cholesterol Start:27-Oct-2016 Instruction Type:Provider Instructions for Treatment How to access health informa tion online Indication:Nonsmoker Start:21-Feb-2016 Instruction Type:Patient Education How to access health informa tion online - Detail Indication:Nonsmoker Start:21-Feb-2016 Instruction Type:Patient Education Patient Instructions Indication:Nonsmoker Start:21-Feb-2016 Instruction Type:Provider Instructions for Treatment Advance Directives Name Dates Details Immunization Registry [place] - Effective on 03/23/2018. Expiration date unspecified Effective:23-Mar-2018 Name Dates Details Immunization Registry [place] - Effective on 03/23/2018. Expiration date unspecified Effective:23-Mar-2018 Name Dates Details Immunization Registry [place] - Effective on 03/23/2018. Expiration date unspecified Effective:23-Mar-2018 Name Dates Details Immunization Registry [place] - Effective on 03/23/2018. Expiration date unspecified Effective:23-Mar-2018 Name Dates Details Immunization Registry [place] - Effective on 03/23/2018. Expiration date unspecified Effective:23-Mar-2018 Name Dates Details Immunization Registry [place] - Effective on 03/23/2018. Expiration date unspecified Effective:23-Mar-2018 Name Dates Details Immunization Registry [place] - Effective on 03/23/2018. Expiration date unspecified Effective:23-Mar-2018 Name Dates Details Immunization Registry [place] - Effective on 03/23/2018. Expiration date unspecified Effective:23-Mar-2018 Name Dates Details Immunization Registry [place] - Effective on 03/23/2018. Expiration date unspecified Effective:23-Mar-2018 Name Dates Details Immunization Registry [place] - Effective on 03/23/2018. Expiration date unspecified Effective:23-Mar-2018 Name Dates Details Immunization Registry [place] - Effective on 03/23/2018. Expiration date unspecified Effective:23-Mar-2018 Name Dates Details Immunization Registry [place] - Effective on 03/23/2018. Expiration date unspecified Effective:23-Mar-2018 Name Dates Details Immunization Registry [place] - Effective on 03/23/2018. Expiration date unspecified Effective:23-Mar-2018 Name Dates Details Immunization Registry [place] - Effective on 03/23/2018. Expiration date unspecified Effective:23-Mar-2018 Name Dates Details Immunization Registry [place] - Effective on 03/23/2018. Expiration date unspecified Effective:23-Mar-2018 Name Dates Details Immunization Registry [place] - Effective on 03/23/2018. Expiration date unspecified Effective:23-Mar-2018 Name Dates Details Immunization Registry [place] - Effective on 03/23/2018. Expiration date unspecified Effective:23-Mar-2018 Name Dates Details Immunization Registry [place] - Effective on 03/23/2018. Expiration date unspecified Effective:23-Mar-2018 Name Dates Details Immunization Registry [place] - Effective on 03/23/2018. Expiration date unspecified Effective:23-Mar-2018 Name Dates Details Immunization Registry [place] - Effective on 03/23/2018. Expiration date unspecified Effective:23-Mar-2018 Summary Purpose Additional Source Comments INFORMATION SOURCE (unrecogn ized section and content) DATE CREATED AUTHOR AUTHOR'S ORGANIZ ATION 08/09/[address] [facility] FOR RECORDS PERTAINING TO PATIENTS WHO ARE OR HAVE BEEN ENROLLED IN A CHEMICAL DEPENDENCY/SUBSTANCEABUSE PROGRAM, SOME INFORMATION MAY BE OMITTED. This clinical summary was aggregated from multiple sources. Caution should be exercised in using it in the provision of clinical care. This summary normalizes information from multiple sources, and as a consequence, information in this document may materially change the coding, format and clinical context of patient data. In addition, data may be omitted in some cases. CLINICAL DECISIONS SHOULD BE BASED ON THE PRIMARY CLINICAL RECORDS. [facility] [employer] [facility]. provides no warranty or guarantee of the accuracy or completeness of information in this document.
[2023-05-14] MEDS: Lactated Ringers 1,000 ML 15 ML IV (07:35)
[2023-05-14] MEDS: Enoxaparin 30 MG/0.3 ML Syringe SC (08:09)
[2023-05-14] MEDS: Cefazolin 2 GM in 0.9% Normal Saline (100mL Bag) 100 ML IV (09:00)
[2023-05-14] MEDS: Lactated Ringers 1,000 ML 65 ML IV (10:10)
[2023-05-14] MEDS: [UNRECOGNIZED DRUG - OTHER] OPERA.SITE (10:14)
--- NOTE | 2023-05-14 11:24 | EX.PCM.DISCH ---
Discharge Instructions Diet Discharge Diet: No restrictions Activity Discharge Activity: May Not Drive May shower in (days): 2 Weight Bearing Status: Weight bearing as tolerated Lifting Restrictions: 10-15 pounds Keep extremity elevated above heart level: Left Leg Dressing / Incision Call your doctor if your incision/area has: Sudden Increased Bleeding Call your doctor if you observe: Shortness of breath, Chest pain and Uncontrolled pain Suture Line Care: Avoid Pulling/Pushing Remove Dressing in: 2 days (MAY SHOWER AFTER 48 HOURS. REWRAP WITH NATHAN FROM BASE OF TOES TO UPPER THIGH DAILY UNTIL SEEN IN THE OFFICE.) Follow Up Care Please Follow Up With: Tylre Knight MD When: 10-14 DAYS Test Results: Test results from this visit will be discussed in further detail at your follow-up appointment, if applicable. Discharge Plan Admission Attending Provider: Tyler Knight Primary Care Provider: Herlinda Lopez Discharge Orders/Prescriptions Prescriptions: No Action vitamin D3-vitamin K2 125-90 mcg Capsule 1 cap PO DAILY pravastatin 40 mg Tablet 40 mg PO QHS ibuprofen [Advil] 200 mg Tablet 600 mg PO Q6H PRN (Reason: Pain) Referrals / Follow Up: Herlinda Lopez, CLASSIFICATION AND TREATMENT DIRECTOR-C [Primary Care Provider] - Disposition Disposition (needs filled in before D/C Order can be placed): Home, Self Care
--- NOTE | 2023-05-14 18:55 | OP.PCM_ITS ---
Problems Associated Problem List Diagnoses (1) Chronic venous insufficiency: (2) Varicose veins of left lower extremity with inflammation: (3) Leg pain, left: Report of Operation Date of Procedure: 05/14/23 Pre-Operative Diagnosis: Chronic venous insufficiency, varicose veins with inflammation, leg pain?left lower extremity Post-Operative Diagnosis: Chronic venous insufficiency, varicose veins with inflammation, leg pain?left lower extremity Surgery/Procedure Performed:: 1. Endovenous laser ablation of the left great saphenous vein 2. Endovenous laser ablation of the left small saphenous vein 3. Endovenous laser ablation of the left vein of Giacomini Description of Surgical Findings:: As above Surgeon: Tyler Knight Type of Anesthesia: General and Tumescent Anesthesiologist: Madan Ledesma Special Medications: Lovenox Specimen's removed: None Drains: None Estimated Blood Loss (mL): Minimal Description of Procedure: This is a 72-year-old female with a longstanding history of chronic venous insufficiency, varicose veins with inflammation, and leg pain involving her left lower extremity. A preoperative venous duplex examination revealed valvular incompetence involving the left great saphenous vein, the left small saphenous vein, and the left vein of Giacomini. The implications of this diagnosis were discussed with the patient in detail. The options of management were fully explained. Conservative treatment measures were implemented for many months, including leg elevation, avoidance of idle standing and sitting, graduated compression stockings, weight control measures, active lifestyle, [id number] analgesics, etc. Despite these measures, the patient remained symptomatic, with symptoms which adversely affected daily activities, quality of life, and job functions. Indications and risks of endovenous laser ablation of the left great saphenous vein, left small saphenous vein, and left vein of Giacomini were discussed with the patient in detail. The patient indicated her desire to proceed. The appropriate preprocedure consent process was undertaken. The patient underwent ultrasound marking of the left great saphenous vein, the left small saphenous vein, and the left vein of Giacomini preoperatively. She was then brought to the operating room suite, placed supine upon the operating table, where general anesthesia was administered by the anesthesia staff. The patient's left lower extremity and left groin were prepped and draped in the appropriate sterile manner. The patient was placed in reverse Trendelenburg pos ition. Ultrasonography was used to image the left great saphenous vein in the distal calf. The micropuncture technique was used to access the left great saphenous vein percutaneously in the distal calf. In this manner, a 0.018 inch guidewire was advanced intraluminally into the left great saphenous vein, and was visualized by ultrasonography. A micropuncture sheath was advanced over the guidewire. The 0.018 inch guidewire was exchanged for a 0.035 inch guidewire, which was then advanced intraluminally as far proximally as possible within the great saphenous vein. It had been anticipated that the guidewire would advance to the left saphenofemoral junction. However, an obstruction to passage was encountered in the left mid thigh. Several maneuvers were undertaken in order to advance the guidewire more proximally. This included the use of a 0.035 inch Glidewire. Despite these measures, it was not possible to advance the guidewire more proximally. Therefore, the 4 Palestinian sheath was advanced over the guidewire and inserted intraluminally into the left great saphenous vein, with its tip positioned as far proximally as possible. A second percutaneous access was achieved to the left great saphenous vein just proximal to the site of venous obstruction. In this manner, a micropuncture sheath was introduced intraluminally, and was left in place, capped, for subsequent access purposes. Attention was directed to the incompetent left small saphenous vein. To enhance exposure, the left lower extremity was placed in an externally rotated position with the left knee flexed. Using ultrasound imaging and the micropuncture technique, a micropuncture sheath was introduced intraluminally into the left small saphenous vein near the inferior border of the left gastrocnemius muscle. A 0.035 inch guidewire was introduced intraluminally and advanced as far proximally as possible. The guidewire advanced without resistance into the proximal portion of the left small saphenous vein. It was then possible to introduce the guidewire into the distal portion of the left vein of Giacomini, communicating with the left small saphenous vein in the popliteal region, but was met with obstruction in the mid?distal thigh. The inner dilator of the 4 Palestinian sheath was then advanced over the guidewire to hold position. Using ultrasound imaging and the micropuncture sheath, access to the more proximal portion of the left vein of Giacomini was achieved in the proximal thigh, and a micropuncture sheath was left in place intraluminally, capped, for subsequent access purposes. Attention was then redirected to the long 4 Palestinian sheath which had been previously placed intraluminally within the left great saphenous vein, with its tip near the mid thigh. Perivenous tumescent anesthesia was injected from the 4 Palestinian sheath exit site up to the tip of the sheath. This was performed segmentally using ultrasound imaging. The AngioDynamics laser fiber was then introduced into the 4 Palestinian sheath and coupled appropriately. Ultrasonography was used to confirm that the tip of the laser fiber was positioned as desired in the left great saphenous vein in the mid thigh, as far proximally as could be achieved. The patient was placed in Trendelenburg position and the laser fiber was activated. The AngioDynamics laser was slowly withdrawn at a constant rate throughout the length of the left great saphenous vein, thereby ablating the left great saphenous vein segmentally. The energy applied was approximately 60 to 80 J/cm. Following the laser ablation, the laser fiber and sheath were removed, and manual pressure was briefly applied to the percutaneous access site to achieve hemostasis. Attention was then redirected to the inner dilator of the 4 Palestinian sheath which was holding position within the left small saphenous vein and the distal portion of the left vein of Giacomini. A 0.035 inch guidewire was introduced, and while left in place, the inner sheath was removed, and coupled with the 4 Palestinian sheath itself. The 4 Palestinian sheath was then advanced over the guidewire and into position intraluminally within the left small saphenous vein and distal vein of Giacomini. Perivenous tumescent anesthesia was then injected from the 4 Palestinian sheath exit site up to the tip of the sheath in the distal portion of the left vein of Giacomini. The tumescent anesthesia injection was performed segmentally using ultrasound imaging. The AngioDynamics laser fiber was then introduced into the 4 Palestinian sheath and coupled appropriately. Ultrasonography was used to confirm that the tip of the laser fiber was in the desired position. The patient was placed in Trendelenburg position and the laser fiber was activated. The AngioDynamics laser was slowly withdrawn at a constant rate throughout the length of the distal vein of Giacomini and the left small saphenous vein, thereby ablating the veins segmentally. The energy applied was approximately 60 to 80 J/cm. Following the laser ablation, the laser fiber and sheath were removed, and manual pressure was briefly applied to the percutaneous access site to achieve hemostasis. Attention was then directed to the micropuncture sheath which had been previously placed intraluminally within the left great saphenous vein in the thigh. A 0.035 inch guidewire was introduced intraluminally into the proximal left great saphenous vein. The long 4 Palestinian sheath was then advanced over the guidewire and into position in the left great saphenous vein, with its tip positioned approximately 2 and half centimeters distal to the left saphenofemoral junction. Perivenous tumescent anesthesia was then injected segmentally. The AngioD[employer] laser fiber was then introduced into the 4 Palestinian sheath and coupled appropriately. Ultrasonography was used to confirm that the tip of the laser fiber was positioned approximately 2 and half centimeters distal to the left saphenofemoral junction. The patient was placed in Trendelenburg position and the laser fiber was activated. The AngioDynamics laser fiber was slowly withdrawn at a constant rate throughout the length of the left proximal great saphenous vein, thereby ablating the vein segmentally. The energy applied was approximately 60 to 80 J/cm. Following the ablation, the laser fiber and sheath were removed, and manual pressure was briefly applied to the percutaneous access site to achieve hemostasis. Attention was then redirected to the micropuncture sheath which had been previously placed intraluminally within the proximal portion of the left vein of Giacomini. A 0.035 inch guidewire was introduced intraluminally, over which the long 4 Palestinian sheath was advanced. Perivenous tumescent anesthesia was injected from the 4 Palestinian sheath exit site up to the tip of the sheath. This was performed segmentally using ultrasound imaging. The AngioDynamics laser fiber was then introduced into the 4 Palestinian sheath and coupled appropriately. Ultrasonography was used to confirm that the tip of the laser fiber was positioned within the proximal left vein of Giacomini, several centimeters distal to its junction with the deep venous system. The patient was placed in Trendelenburg position and the laser fiber was activated. The AngioDynamics laser was slowly withdrawn at a constant rate throughout the length of the left proximal vein of Giacomini, The energy applied was approximately 60 to 80 J/cm. Following the laser ablation, the laser fiber and sheath were removed, and manual pressure was briefly applied to the percutaneous access site to achieve hemostasis. After assuring satisfactory hemostasis, the access sites were approximated using Cavilon and Steri-Strips. Dry sterile gauze dressings were placed over each of the access sites, and the leg was wrapped from the base of the toes to the upper thigh with Kerlix, followed by Yohan wrap. The blood loss for the procedure was minimal. The sponge, needle, and instrument counts at the end of the procedure were correct. The patient tolerated the procedure well and was transported from the operating room to the postanesthesia care unit in stable condition. The amount of tumescent anesthesia utilized, number of joules applied, and treatment times were recorded separately. Complications None Admit VTE Documentation VTE Present on Admission: No VTE Mechan Device Prophylaxis: SCD's (Right) VTE Pharm Prophylaxis ordered?: Yes
== END 2023-05-14 13:40 | disposition home or self-care (01) ==
LOC: SDC 07:14 → AC 07:15
PROVIDERS: PCP Nurse Practitioner Family; Referring Provider Surgery; Visit Provider Surgery
PROC: (CPT 36478; principal; 2023-05-14 08:30)
DX: I83.12 Varicose veins of left lower extremity with inflammation (principal); M79.605 Pain in left leg; E78.00 Pure hypercholesterolemia, unspecified; Z79.1 Long term (current) use of non-steroidal anti-inflammatories (NSAID); Z79.899 Other long term (current) drug therapy
CPT/HCPCS: 36478; 36479; 01260; 36415; 80053; 85025; 93005; C1894; J7040; J7120; C1769; J2405

== ENCOUNTER → 2023-07-20 | Outpatient (CLI) | payer MEDICARE, OTHER, SELFPAY ==
--- NOTE | 2023-07-20 14:01 | BI_ITS ---
MAMMOGRAPHY - BILATERAL SCREENING 3-D TOMOSYNTHESIS REASON FOR EXAM: Female, 73 years old. breast cancer screening PERTINENT HISTORY: No significant family history. TECHNIQUE: 2-D mammograms and 3-D Tomosynthesis of the breast (s) were performed. CAD was performed. COMPARISON: 06/23/2022 FINDINGS: The breast composition is heterogeneously dense that can obscure small breast masses. Scattered benign calcifications are seen. No dense spiculated masses or suspicious microcalcifications are identified. No architectural distortion is identified. There is no skin thickening or retraction. There has been no significant change since the prior study. BI/SCRN MAMM (CAD)W/SAMANTHA BILAT IMPRESSION: No mammographic signs of malignancy. Routine yearly mammograms recommended. ASSESSMENT CATEGORY: BIRADS Category 1: Negative. A letter regarding these results will be sent to the patient by the facility within 30 days. FOLLOW UP RECOMMENDATION: Yearly follow up mammogram recommended. (A) Approximately 10% of breast cancers are not detected by mammography. A normal mammogram should not delay biopsy of a clinically suspicious abnormality. Electronically Signed: Dinesh Hurley MD at 15:39 EST ,
== END | disposition home or self-care (01) ==
LOC: OPBI 14:01
PROVIDERS: PCP Nurse Practitioner Family; Referring Provider Nurse Practitioner Family; Visit Provider Nurse Practitioner Family
DX: Z12.31 Encounter for screening mammogram for malignant neoplasm of breast (principal)
CPT/HCPCS: 77063; 77067

== ENCOUNTER → 2023-09-15 | Outpatient (CLI) | payer MEDICARE, OTHER, SELFPAY ==
--- NOTE | 2023-09-15 09:54 | VDLE_ITS ---
Reason For Study: RLE Pain and Varicose veins RIGHT LEFT CFV is compressible, spontaneous, phasic, CFV is compressible, spontaneous, phasic, competent and demonstrates normal competent, and demonstrates normal augmentation. augmentation. FV is compressible, spontaneous, phasic, FV is compressible, spontaneous, phasic, competent and demonstrates normal competent and demonstrates normal augmentation. augmentation. POP V is compressible, spontaneous, phasic, POP V is compressible, spontaneous, phasic, competent and demonstrates normal competent and demonstrates normal augmentation. augmentation. T/P Trunk is compressible. T/P Trunk is compressible. PTV is compressible. PTV is compressible. RT PerV is compressible. LT PerV is compressible. SFJ is INCOMPETENT and measures 0.54 cm. SFJ is INCOMPETENT and measures 0.38 cm. GSV proximal thigh measures 0.65 x 0.71 cm. HX EVLA of GSV, SSV and Vein of Giacomini. GSV at knee measures 0.33 x 0.37 cm. GSV INCOMPETENT throughout for greater than 0.5 seconds. ASV distal thigh is INCOMPETENT for greater than 0.5 seconds and measures 0.41 x 0.46 cm. ASV proximal calf is INCOMPETENT for greater than 0.5 seconds and measures 0.49 x 0.47 cm. SSV proximal calf is competent and measures 0.16 x 0.13 cm. Incompetent varicosities noted throughout distal thigh and prox calf. Procedure Exam performed in department. This is a venous duplex using B-mode, color flow and spectral Doppler. The exam was diagnostic. Patient was scanned in reverse Trendelenburg position during reflux assessment. VL/Venous Duplex US - Sushil Extrem Interpretation Summary Deep veins of the bilateral lower extremities are patent and compressible segme ntally. There is no evidence of bilateral lower extremity deep vein thrombosis. The right great sap henous vein appears patent and compressible segmentally. Positive for reflux in the right saphenofemoral junction, great saphenous vein throughout, accessory saphenous veins in thigh and calf. Positive for reflux in the left saphenofemoral junction Ordering Physician: July Dacosta Referring Physician: Herlinda Lopez Performed By: Kit Wilson RVT
== END | disposition home or self-care (01) ==
LOC: CVS 09:53
PROVIDERS: PCP Nurse Practitioner Family; Referring Provider Physician Assistant; Visit Provider Physician Assistant
DX: I83.12 Varicose veins of left lower extremity with inflammation (principal)
CPT/HCPCS: 93970

== ENCOUNTER → 2024-01-05 | Outpatient (CLI) | payer MEDICARE, OTHER, SELFPAY ==
[2024-01-11 10:07] LABS: HPV APTIMA, High Risk Negative (Negative)
== END | disposition home or self-care (01) ==
LOC: LABSPEC 14:01
PROVIDERS: PCP Nurse Practitioner Family; Referring Provider Obstetrics & Gynecology; Visit Provider Obstetrics & Gynecology
DX: Z12.4 Encounter for screening for malignant neoplasm of cervix (principal)
CPT/HCPCS: 87624; 88175; G0145

== ENCOUNTER → 2024-01-19 | Outpatient (CLI) | payer MEDICARE, OTHER, SELFPAY ==
--- NOTE | 2024-01-19 15:22 | BD_ITS ---
STUDY: DUAL ENERGY X-RAY ABSORPTIOMETRY / DXA REASON FOR EXAM: Female, 73 years old. Osteopenia TECHNIQUE: Bone Mineral Density (BMD) measurements of lumbar spine and right hip were obtained. COMPARISON: Comparison is made with prior study August 24, 2018. FINDINGS: Lumbar Spine (L1-L4): g/cm2 (0.816) / T-score (-2.1) / Z-score (0.1) Findings are suggestive of osteopenia with a high fracture risk. Right Femur Total: g/cm2 (0.788) / T-score (-1.3) / Z-score (0.3) Right Femoral Neck: g/cm2 (0.636) / T-score (-1.9) / Z-score (0.0) The T-Scores on the most recent prior examination were: Lumbar Spine (L1-L4): There has been worsening of bone density since the previous examination. Right Femur Total: which represents an improvement of 3%. BD/Dexa Bone Density Study IMPRESSION: The patient is considered osteopenic as outlined below according to World Dariel Organization (WHO) criteria with a high fracture risk. There has been worsening of bone density since the previous examination. Reference Information: The T-score is the number of standard deviations above or below the standard which is normal for young adults at their peak bone mineral density. The World Health Organization (WHO) interprets the T-scores as follows: Above -1 Normal bone density Between -1 and -2.5 Osteopenia Equal to / or below -2.5 Osteoporosis As a practical clinical guideline, osteopenia may be graded as follows: Mild -1 through -1.5 Moderate -1.6 through -2.0 Severe -2.1 through -2.4 The Z-score is the number of standard deviations above or below age-matched controls. A Z-score of less than -1.5 would be considered abnormal. References: 1. NIH Osteoporosis and Related Bone Diseases www osteo.org 2. International Society for Clinical Densitometry www iscd.org 3. National Osteoporosis Foundation www nof.org Electronically Signed: Jung Sarmiento MD at 8:33 EDT ,
== END | disposition home or self-care (01) ==
LOC: OPBD 15:20
PROVIDERS: PCP Nurse Practitioner Family; Referring Provider Obstetrics & Gynecology; Visit Provider Obstetrics & Gynecology
DX: Z78.0 Asymptomatic menopausal state (principal)
CPT/HCPCS: 77080

== ENCOUNTER → 2024-02-03 | Outpatient (CLI) | payer MEDICARE, OTHER, SELFPAY ==
[2024-02-03 10:04] LABS: Absolute Lymphocyte Count 2.85 X10^3/uL (0.83-4.51); Basophil# 0.05 X10^3/uL; Basophil% 0.7 % (0-1); Eosinophil# 0.16 X10^3/uL; Eosinophils% 2.1 % (0-5); Hematocrit 42.8 % (37-47); Hemoglobin 13.4 g/dL (12.0-15.0); Lymphocyte # 2.85 X10^3/ul (0.83-4.51); Lymphocyte % 37.9 % (19-41); Mean Corp Hgb Conc 31.3 g/dL (32-36); Mean Corpuscular Volume 89.4 fL (81-99); Mean Platelet Vol. 10.7 fl (6.2-12.0); Monocyte# 0.45 X10^3/uL; NRBC Flagged by Analyzer 0 % (0-5); Neutrophil # 3.98 X10^3/uL (2.7-7.7); Neutrophil % 52.9 % (47-70); Platelet Count 354 K/mm3 (150-450); RBC Distribution Width CV 14.1 % (11.6-14.6); RBC Distribution Width SD 45.8 fl (35.1-43.9); Red Blood Count 4.79 M/mm3 (4.2-5.4); White Blood Count 7.5 K/mm3 (4.4-11.0)
[2024-02-03 10:24] LABS: Hemoglobin A1c 5.8 % (3.8-5.6)
[2024-02-03 10:31] LABS: Vitamin D,25 Hydroxy 44.4 ng/mL
[2024-02-03 10:50] LABS: ALB/GLOB Ratio 0.9 RATIO (0.9-2.4); AST(SGOT) 15 U/L (15-37); Alanine Aminotransfer ALT/SGPT 21 U/L (13-56); Albumin, Serum 3.5 g/dL (3.2-5.0); Alkaline Phosphatase 83 U/L (45-117); Anion Gap 6 (5-15); BUN 17 mg/dL (7-18); BUN/Creat Ratio 21.5 RATIO (10-20); Calcium,Total 8.8 mg/dL (8.5-10.1); Chloride 109 mmol/L (98-107); Cholesterol 231 mg/dL (200); Creatinine, Serum 0.79 mg/dL (0.55-1.02); EST Glomerular Filtration Rate 76 mL/min (>60); Est Glom Filt Rate - Afr Amer 92 mL/min (>60); Globulin 3.7 g/dL (2.2-4.2); Glucose 90 mg/dL (74-106); High Density Lipoprotein 74 mg/dL; Protein, Total 7.2 g/dL (6.4-8.2); Sodium Level 139 mmol/L (136-145); Triglycerides 119 mg/dL; Very Low Density Lipoprotein 24 mg/dL (5-40)
== END | disposition home or self-care (01) ==
LOC: LAB 09:33
PROVIDERS: PCP Nurse Practitioner Family; Referring Provider Nurse Practitioner Family; Visit Provider Nurse Practitioner Family
DX: E78.5 Hyperlipidemia, unspecified (principal); E55.9 Vitamin D deficiency, unspecified; R73.01 Impaired fasting glucose
CPT/HCPCS: 36415; 80053; 80061; 82306; 83036; 84443; 85025

== ENCOUNTER → 2024-03-01 | Outpatient (CLI) | payer MEDICARE, OTHER, SELFPAY ==
--- NOTE | 2024-03-01 14:00 | US_ITS ---
STUDY: THYROID ULTRASOUND REASON FOR EXAM: Female, 73 years old. THYROID ULTRASOUND (00404) : palpated nodules, ? Enlargement -- Enlarged thyroid TECHNIQUE: Ultrasound evaluation of the thyroid was performed with real-time and static justice-scale imaging. COMPARISON: None. FINDINGS: RIGHT LOBE: The right lobe of the thyroid gland measures 4.4 x 2.1 x 1.6 cm. There is a homogeneous echotexture. There are no demonstrated solid, cystic or complex lesions. LEFT LOBE: The left lobe of the thyroid gland measures 4.5 x 1.4 x 1.2 cm. There is a homogeneous echotexture. There are 2 solid nodules in the left thyroid lobe. Nodule 1 is very hypoechoic and is located near the anterior medial surface of the mid thyroid lobe. This measures 0.77 x 0.29 x 0.68 cm. Nodule 2 is mildly hypoechoic and located in the caudal aspect of the left thyroid lobe measuring 1.15 x 1.0 x 0.91 cm. ISTHMUS: The isthmus measures 0.2 cm. . US/Thyroid IMPRESSION: 1. 2 solid nodules in the left thyroid lobe and no nodules in the right thyroid lobe. 2. Nodule 1 in the anterior medial surface of the left mid thyroid lobe is markedly hypoechoic. This measures 0.77 x 0.29 x 0.68 cm. TI-RADS points: 5. TI-RADS category: TR4. This nodule is moderately suspicious but no FNA or follow-up is necessary given the small size of this nodule. 3. Nodule 2 is mildly hypoechoic and located in the caudal aspect of the left thyroid lobe. This measures 1.15 x 1.0 x 0.91 cm. TI-RADS points: 7. TI-RADS category: TR5. This nodule is highly suspicious. Recommend FNA evaluation. Electronically Signed: Ismael Pelaez MD at 16:36 EDT ,
== END | disposition home or self-care (01) ==
LOC: US 13:57
PROVIDERS: PCP Nurse Practitioner Family; Referring Provider Nurse Practitioner Family; Visit Provider Nurse Practitioner Family
DX: E04.9 Nontoxic goiter, unspecified (principal)
CPT/HCPCS: 76536

== ENCOUNTER → 2024-03-23 | Outpatient (CLI) | payer MEDICARE, OTHER, SELFPAY | END | disposition home or self-care (01) | LOC: LABSPEC 10:58 | PROVIDERS: PCP Nurse Practitioner Family; Referring Provider Surgery; Visit Provider Surgery | DX: E04.1 Nontoxic single thyroid nodule (principal) | CPT/HCPCS: 88108; 88161; 88305; 88313 ==

== ENCOUNTER 2024-08-02 15:20 | Outpatient (CLI) | payer SELFPAY | END 2024-08-02 23:59 | disposition home or self-care (01) | PROVIDERS: PCP Nurse Practitioner Family; Referring Provider Nurse Practitioner Family; Visit Provider Nurse Practitioner Family | DX: R73.03 Prediabetes (principal); E66.9 Obesity, unspecified | CPT/HCPCS: 76499 ==

== ENCOUNTER → 2024-08-03 | Outpatient (CLI) | payer MEDICARE, OTHER, SELFPAY ==
[2024-08-03 08:42] LABS: Hemoglobin A1c 6.2 % (<=5.6)
[2024-08-03 08:47] LABS: ALB/GLOB Ratio 1.4 RATIO (0.9-2.4); AST(SGOT) 19 U/L (<=31); Alanine Aminotransfer ALT/SGPT 14 U/L (<=34); Albumin, Serum 4.2 g/dL (3.4-4.8); Alkaline Phosphatase 73 U/L (35-104); Anion Gap 12 (5-15); BUN 18 mg/dL (4-19); BUN/Creat Ratio 21.3 RATIO (10-20); Calcium,Total 9.3 mg/dL (7.6-11.0); Carbon Dioxide 22.3 mmol/L (21.0-32.0); Chloride 103 mmol/L (98-108); Cholesterol 217 mg/dL (<=200); Creatinine, Serum 0.82 mg/dL (0.70-1.20); EST Glomerular Filtration Rate 76 (>60); Glucose 92 mg/dL (70-99); High Density Lipoprotein 85 mg/dL; Low Density Lipoprotein Calc. 113 mg/dL; Potassium 3.9 mmol/L (3.3-5.1); Protein, Total 7.2 g/dL (5.9-8.4); Sodium Level 137 mmol/L (133-145); Total Bilirubin 0.48 mg/dL (0.00-1.30); Triglycerides 98 mg/dL; Very Low Density Lipoprotein 20 mg/dL (5-40); cholesterol:hdl ratio screen 2.57
[2024-08-03 09:04] LABS: Vitamin D,25 Hydroxy 71.1 ng/mL (30-100)
[2024-08-03 18:29] LABS: Microalbumin,Random Urine < 12.0 mg/L (NO RANGE EST.)
== END | disposition home or self-care (01) ==
LOC: LAB 06:38
PROVIDERS: PCP Nurse Practitioner Family; Referring Provider Nurse Practitioner Family; Visit Provider Nurse Practitioner Family
DX: E78.5 Hyperlipidemia, unspecified (principal); E55.9 Vitamin D deficiency, unspecified; R73.03 Prediabetes
CPT/HCPCS: 36415; 80053; 80061; 82043; 82306; 82570; 83036

== ENCOUNTER → 2024-08-17 | Outpatient (CLI) | payer MEDICARE, OTHER, SELFPAY ==
--- NOTE | 2024-08-17 12:25 | BI_ITS ---
EXAM: SCRN MAMM (CAD)W/SAMANTHA BILAT 08/17/2024 CLINICAL HISTORY: F, Age 74 y/o , SCREENING TECHNIQUE: Bilateral screening digital breast tomosynthesis with 2D and 3D images. Computer aided detection. COMPARISON: Prior exam(s) dated 07/20/2023, 06/23/2022. FINDINGS: TISSUE DENSITY: The breast tissue is heterogenously dense, which may obscure small masses. The mammogram demonstrates that the patient has dense breasts. Supplemental screening with whole breast ultrasound or MRI may be considered for further evaluation. . Bilateral Breast Mammographic Findings: No significant masses, calcifications or other abnormalities are identified. BI/SCRN MAMM (CAD)W/SAMANTHA BILAT IMPRESSION: Right Breast: BIRADS 1 NEGATIVE. Left Breast: BIRADS 1 NEGATIVE. OVERALL FINAL ASSESSMENT: BIRADS 1 NEGATIVE. RECOMMENDATION: Routine annual follow-up in 1 Year A letter with findings and recommendations will be mailed to the patient. Reading Location: [id number]
== END | disposition home or self-care (01) ==
LOC: OPBI 12:24
PROVIDERS: PCP Nurse Practitioner Family; Referring Provider Nurse Practitioner Family; Visit Provider Nurse Practitioner Family
DX: Z12.31 Encounter for screening mammogram for malignant neoplasm of breast (principal)
CPT/HCPCS: 77063; 77067

== ENCOUNTER → 2024-08-25 | Outpatient (CLI) | payer MEDICARE, OTHER, SELFPAY ==
--- NOTE | 2024-08-25 07:51 | US_ITS ---
PROCEDURE: Pelvic ultrasound, transabdominal and transvaginal. 08/25/2024 REASON FOR EXAM: Postmenopausal bleeding. TECHNIQUE: Transabdominal and transvaginal ultrasound images of the female pelvis were obtained. COMPARISON: None available FINDINGS: Included portions of the urinary bladder show no specific abnormality. The uterus is retroverted on transvaginal images, measuring 6.0 x 3.4 x 2.7 cm. Transvaginal images were obtained to better visualize pelvic structures. No discrete cervical mass. There is a 1.5 cm isoechoic probable fibroid of the posterior fundus. The ovaries are not demonstrated on the provided images. No concerning adnexal mass lesion or free pelvic fluid. Endovaginal measurement of the endometrium is 2 mm. US/Pelvic w/ Transvaginal IMPRESSION: 1.5 cm probable fibroid of the posterior fundus. The endometrium measures 2 mm, within normal limits for a postmenopausal woman. Nonvisualization of the ovaries. No concerning adnexal mass or free pelvic flu id. Reading [facility]
== END | disposition home or self-care (01) ==
LOC: OPUS 07:50
PROVIDERS: PCP Nurse Practitioner Family; Referring Provider Nurse Practitioner Women's Health; Visit Provider Nurse Practitioner Women's Health
DX: N95.0 Postmenopausal bleeding (principal)
CPT/HCPCS: 76830; 76856

== ENCOUNTER → 2025-02-08 | Outpatient (CLI) | payer MEDICARE, OTHER, SELFPAY ==
[2025-02-08 10:27] LABS: Hematocrit 43.1 % (37-47); Hemoglobin 14.0 g/dL (12.0-15.0); Immature Granulocytes Count 0.010 X10^3/uL (0.0-0.0); Mean Corp Hgb Conc 32.5 g/dL (32-36); Mean Corpuscular Volume 88.1 fL (81-99); Mean Platelet Vol. 10.8 fl (6.2-12.0); NRBC Flagged by Analyzer 0 % (0-5); Platelet Count 392 K/mm3 (150-450); RBC Distribution Width CV 14.1 % (11.6-14.6); RBC Distribution Width SD 45.2 fl (35.1-43.9); Red Blood Count 4.89 M/mm3 (4.2-5.4); White Blood Count 8.3 K/mm3 (4.4-11.0)
[2025-02-08 10:57] LABS: AST(SGOT) 21 U/L (<=31); Alanine Aminotransfer ALT/SGPT 14 U/L (<=34); Albumin, Serum 4.4 g/dL (3.4-4.8); Alkaline Phosphatase 75 U/L (35-104); Anion Gap 12 (5-15); BUN 19 mg/dL (4-19); BUN/Creat Ratio 22.5 RATIO (10-20); Calcium,Total 9.5 mg/dL (7.6-11.0); Carbon Dioxide 23.2 mmol/L (21.0-32.0); Chloride 103 mmol/L (98-108); Cholesterol 222 mg/dL (<=200); Globulin 3.0 g/dL (2.2-4.2); Glucose 91 mg/dL (70-99); Low Density Lipoprotein Calc. 124 mg/dL; Potassium 4.1 mmol/L (3.3-5.1); Triglycerides 114 mg/dL; Very Low Density Lipoprotein 23 mg/dL (5-40); Vitamin B12 1122 pg/mL (180-914); cholesterol:hdl ratio screen 2.96
[2025-02-08 11:52] LABS: FOLATES,SERUM (FOLIC ACID) > 40.00 ng/mL (4.60-34.80)
== END | disposition home or self-care (01) ==
PROVIDERS: PCP Nurse Practitioner Family; Referring Provider Nurse Practitioner Family; Visit Provider Nurse Practitioner Family
DX: E53.8 Deficiency of other specified B group vitamins (principal); E78.5 Hyperlipidemia, unspecified; R73.03 Prediabetes
CPT/HCPCS: 36415; 80053; 80061; 82607; 82746; 83036; 85025

== ENCOUNTER → 2025-03-02 | Outpatient (CLI) | payer MEDICARE, OTHER, SELFPAY ==
--- NOTE | 2025-03-02 11:54 | US_ITS ---
PROCEDURE: THYROID 03/02/2025 REASON FOR EXAM: THYROID NODULE TECHNIQUE: Procedure Code: USTHY Modality: US Procedure: THYROID COMPARISON: 03/01/2024 FINDINGS: Right thyroid lobe size: 4.6 x 2.1 x 1.9 cm Left thyroid lobe size: 3.9 x 1.3 x 1.1 cm Isthmus: 0.2 cm Background parenchymal echotexture is homogeneous. Nodules: 1. Lobe: Left, Location: Mid, Size: 1.2 x 1.0 x 0.9 cm, Stability: Stable Composition: Mixed cystic and solid (+1) Echogenicity: Hypoechoic (+2) Margin: Smooth (+0) Shape: Wider than tall (+0) Echogenic Foci: None (+0) TI-RADS: <2 = TR 1 * 2 = TR 2 * 3 = TR 3 * 4-6 = TR 4 * >6 = TR 5 2. Lobe: Left, Location: Mid, Size: 0.8 x 0.7 x 0.3 cm, Stability: Stable Composition: Solid or almost completely solid (+2) Echogenicity: Hypoechoic (+2) Margin: Smooth (+0) Shape: Wider than tall (+0) Echogenic Foci: None (+0) TI-RADS: <2 = TR 1 * 2 = TR 2 * 3 = TR 3 * 4-6 = TR 4 * >6 = TR 5 There is a subcentimeter physiologic left neck lymph node US/Thyroid IMPRESSION: Stable homogeneous thyroid gland with stable nodules in the left thyroid lobe t hat can be followed sonographically. No suspicious findings or intervention needed. RECOMMENDATION: Based on most suspicious nodule. Nodule size = largest diameter Only evaluate nodule if =>5 mm. Growth > 20% in 2 dimensions = worsening. Follow up to 4 nodules. Recommend biopsy for no more than 2 nodules. Reading Location: [id number]
== END | disposition home or self-care (01) ==
LOC: US 11:52
PROVIDERS: PCP Nurse Practitioner Family; Referring Provider Surgery; Visit Provider Surgery
DX: E04.1 Nontoxic single thyroid nodule (principal)
CPT/HCPCS: 76536

== ENCOUNTER → 2025-04-14 | Outpatient (CLI) | payer MEDICARE, OTHER, SELFPAY ==
--- OUTSIDE RECORDS SUMMARY | 2025-04-14 12:37 | XMS RPT_ITS | CCD ---
Author Organization [facility] Care Team Providers Care Strategic Partnership Representative Name Role Phone YrisKaylynn grace E Unavailable Venecia Unger Unavailable Tyler Donahue Unavailable Igor Pickard Unavailable Mily Chu Unavailable Unavailable Gravius, Carolyn Unavailable Unavailable Renick, Sara Unavailable Unavailable Unavailable Unavailable YrisKaylynn grace E Unavailable Venecia Unger Unavailable Tyler Donahue Unavailable Igor Pickard Unavailable Yoly Johnson Unavailable Unavailable Mily Chu Unavailable Unavailable Unavailable Unavailable Marlon Brihgt Unavailable Unavailable Unavailable Unavailable John Obregon Unavailable Marlon Friedman Unavailable Unavailable Yoly Johnson Unavailable Unavailable Marlon Bright Unavailable Unavailable Lj, Sara Unavailable Unavailable Ashley SALDIVAR Kathrine Unavailable Venecia Unger Unavailable Tyler Donahue MD Unavailable Igor Pickard MD Unavailable Dr. John Obregon Unavailable Marlon Friedman LPN Unavailable Unavailable Yoly Johnson RN Unavailable Unavailable Unavailable Unavailable Cichloea Kaylynn Unavailable Unavailable Ciesa, Kaylynn Unavailable Mary Hernandez LPN Unavailable Unavailable Herlinda Lopez CNP Unavailable Keon MA, Zaida Unavailable Unavailable Kaylynn Ramirez Attending Unavailable Kaylynn Ramirez Consulting Unavailable Fast DO, Isaura A Referring Unavailable John XM1 TANK DRIVER, Herlinda Unavailable John, GASATERIA ATTENDANT-C Herlinda Primary Care Provider John, GASATERIA ATTENDANT-C Herlinda Referring Provider STANLEY Glass Attending Provider John, GASATERIA ATTENDANT-C Herlinda Primary Care Provider Dr. Derrek Baez Attending Provider Dr. Tyler Donahue Referring Provider John, GASATERIA ATTENDANT-C Herlinda Primary Care Provider John, GASATERIA ATTENDANT-C Herlinda Referring Provider STANLEY Dacosta Attending Provider [phone] Livan Croft Attending Provider [phone] John GASATERIA ATTENDANT-C, Herlinda Primary Care Provider John GASATERIA ATTENDANT-C, Herlinda Attending Provider John GASATERIA ATTENDANT-C, Herlinda Referring Provider Michael GASATERIA ATTENDANT-C, Tanvi Attending Provider Michael GASATERIA ATTENDANT-C, Tanvi Referring Provider John GASATERIA ATTENDANT-C, Herlinda Primary Care Physician John GASATERIA ATTENDANT-C, Herlinda Attending Physician John GASATERIA ATTENDANT-C, Herlinda Referring Provider John, Herlinda Attending Unavailable John, Herlinda Referring Unavailable John, Herlinda Primary Care Unavailable John, Herlinda Attending Unavailable John, Herlinda Referring Unavailable John, Herlinda Primary Care Unavailable Marietta GASATERIA ATTENDANT, Tanvi Attending Unavailable John, Herlinda Referring Unavailable John, Herlinda Primary Care Unavailable Marietta GASATERIA ATTENDANT, Tanvi Attending Unavailable Marietta GASATERIA ATTENDANT, Tanvi Referring Unavailable John, Herlinda Primary Care Unavailable John, Herlinda Referring Unavailable John, Herlinda Primary Care Unavailable John, Herlinda Attending Unavailable Friend, Mahesh Attending Unavailable Herlinda Lopez Primary Care Unavailable Herlinda Lopez Attending Unavailable Herlinda Lopez Referring Unavailable Herlinda oLpez Primary Care Unavailable Herlinda Lopez Primary Care Unavailable Kiet Crawford Attending Unavailable Kiet Crawford Referring Unavailable Medications Current Medications Medication Drug Class(es) Dates Sig (Normalized) Sig (Original) ascorbic acid 250 mg oral tablet (13 sources) Vitamin C Start: 05-08-2022 Ascorbic Acid (Vitamin C) (Vitamin C) 250 mg Tablet Active 900 MG PO DAILY May 08, 2022 12:00am Vitamin C 500 mg oral tablet 2 tabs (500 mg) Active Vitamin C 500 mg oral tablet (500 mg) Active ibuprofen 200 mg oral tablet (11 sources) Nonsteroidal Anti-inflammatory Drug Start: 09-10-2022 take 3 tablets by mouth every six hours as needed for pain pravastatin sodium 40 mg oral tablet (20 sources) HMG-CoA Reductase Inhibitor Start: 08-18-2022 take 1 table t by mouth at bedtime Start: 06-20-2022 take 1 tablet by luh [facility] once daily at bedtime pravastatin 40 mg oral tablet 1 Tablet every day at bedtime for 0 days Quantity: 30 {Tablet} Refills: 1 Ordered: 20-Jun-2022 Herlinda Lopez CNP Start : 20-Jun-2022 Active Vitamin D3-Vitamin K2 (8 sources) Start: 05-08-2022 take 1 capsule by mouth once daily Vitamin D3-Vitamin K2 Active 1 CAP PO DAILY May 08, 2022 1:00am Start: 05-08-2022 take 1 capsule by mo mdh once daily Vitamin D3-Vitamin K2 Active 1 CAP PO DAILY May 08, 2022 12:00am Vitamin D3-Vitamin K2 125-90 mcg Capsule (5 sources) Start: 05-08-2022 Start: 05-08-2022 Vitamin D3-Vit martinez K2 125-90 mcg Capsule Active 1 NMA PO DAILY May 08, 2022 1:00am Completed/Discontinued Medications Medication Drug Class(es) Dates Sig (Normalized) Sig (Original) ampicillin 500 mg oral capsule (20 sources) Penicillin-class Antibacterial Start: 03-25-2016 End: 10-27-2016 Ampicillin 500 MG Oral Capsule 2 (two) Capsule before procedure for 0 days Quantity: 2 {Capsule} Refills: 0 Ordered: 27-Oct-2016 Rama Garsia CMA Start : 25-Mar-2016 End : 27-Oct-2016 Inactive cholecalciferol 0.125 mg oral capsule (20 sources) Vitamin D Start: 06-20-2022 take 1 capsule by mouth once daily cholecalciferol (vitamin D3) 125 mcg (5,000 unit) oral capsule 1 (one) Capsule daily for 30 days Quantity: 30 {Capsule} Refills: 3 Ordered: 20-Jun-2022 Herlinda Lopez CNP Start : 20-Jun-2022 Active Comments: takes vitamin d with K Start: 06-14-2019 take 1 capsule by [facility] once daily Vitamin D3 125 MCG (5000 UT) Oral Capsule 1 (one) Capsule daily for 30 days Quantity: 30 {Capsule} Refills: 3 Ordered: 14-Jun-2019 Ashley Kaylynn Start : 14-Jun-2019 Active Comments: takes vitamin d with K Start: 11-01-2018 take 1 capsule by [facility] once daily Vitamin D3 5000 UNIT Oral Capsule 1 (one) Capsule daily for 30 days Quantity: 30 {Capsule} Refills: 3 Ordered: 01-Nov-2018 Aslhey SALDIVAR Kaylynn Marin Yrischloejose SALDIVAR Kaylynn Marin Start : 01-Nov-2018 Active Start: 03-23-2018 take 1 tablet by [facility] once daily Vitamin D3 2000 UNIT Oral Tablet 1 (one) Tablet daily as directed for 0 days Quantity: 60 {Tablet} Refills: 0 Ordered: 23-Mar-2018 Ashley SALDIVAR Kaylynn Marin Yrischloejose SALDIVAR Kaylynn Marin Start : 23-Mar-2018 Active Comment on above: takes vitamin d with K clindamycin 300 mg oral capsule (13 sources) Lincosamide Antibacterial Start: 018 End: take 1 capsule by mouth three times daily Clindamycin Hcl (Cleocin Hcl) 300 mg capsule Discontinued 300 mg PO THREE TIMES A DAY September 24, 2017 12:00am April 21, 2021 10:14am ubidecarenone 100 mg oral capsule (20 sources) Start: 019 End: take 1 capsule by mouth once daily CoQ10 100 MG Oral Capsule 1 (one) Capsule daily as directed for 30 days Quantity: 30 {Capsule} Refills: 3 Ordered: 14-Jun-2019 Marlon Friedman LPN Start : 01-Nov-2018 End : 14-Jun-2019 Inactive ergocalciferol 1.25 mg oral capsule (20 sources) Provitamin D2 Compound Start: 017 End: Ergocalciferol 46373 UNIT Oral Capsule 1 (one) Capsule twice weekly x 3 months for 0 days Quantity: 24 {Capsule} Refills: 0 Ordered: 27-Jan-2017 Mary Hernandez LPN Start : 27-Oct-2016 End : 27-Jan-2017 Discontinued 24 hr metFORMIN hydrochloride 500 mg extended release oral tablet (20 sources) Biguanide Start: 020 End: take 1 tablet by mouth every twenty-four hours at mealtime metFORMIN HCl ER 500 MG Oral Tablet Extended Release 24 Hour 1 (one) Tablet ER 24HR 1/2 hr before largest meal for 0 days Quantity: 90 {QS} Refills: 3 Ordered: 22-Feb-2020 Marlon Friedman LPN Start : 14-Jun-2019 End : 22-Feb-2020 Inactive Start: 09-24-2017 End: 04-21-2021 take 500 mg by mouth twice daily Metformin 500 mg/5 mL solution Discontinued 500 mg PO TWICE A DAY September 24, 2017 12:00am April 21, 2021 10:14am Start: 04-13-2017 End: 03-23-2018 take 1 tablet by mouth every twenty-four hours at mealtime MetFORMIN HCl ER 500 MG Oral Tablet Extended Release 24 Hour 1 (one) Tablet ER 24HR 1/2 hr before largest meal for 0 days Quantity: 90 {QS} Refills: 3 Ordered: 23-Mar-2018 Kaylynn Ramirez CNP, CNP, Mary E Start : 13-Apr-2017 End : 23-Mar-2018 Inactive metoprolol tartrate 50 mg oral tablet (20 sources) beta-Adrenergic Mary Start: 11-01-2018 End: 11-02-2018 Metoprolol Tartrate 50 MG Oral Tablet 1 (one) Tablet one hour before test for 1 days Quantity: 1 {Tablet} Refills: 0 Ordered: 01-Nov-2018 Kaylynn Ramirez Start : 01-Nov-2018 End : 02-Nov-2018 Inactive simvastatin 20 mg oral tablet (20 sources) HMG-CoA Reductase Inhibitor Start: 03-16-2017 End: 01-13-2023 take 1 tablet by mouth once daily Zocor 20 mg oral tablet 1 (one) Tablet daily for 0 days Quantity: 90 {Tablet} Refills: 3 Ordered: 13-Jan-2023 Mary Hernandez LPN Start : 15-Apr-2021 End : 13-Jan-2023 Discontinued Start: 02-21-2016 End: 01-27-2017 take 2 tablets by mouth once daily Zocor 10 MG Oral Tablet 2 (two) Tablet daily for 30 days Quantity: 60 {Tablet} Refills: 5 Ordered: 27-Jan-2017 Mary Hernandez LPN Start : 21-Feb-2016 End : 27-Jan-2017 Discontinued vitamin b12 2.5 mg sublingual tablet (20 sources) Vitamin B12 Start: 11-01-2018 End: 10-14-2019 take 1 tablet under the tongue every other day Cyanocobalamin 2500 MCG Sublingual Tablet Sublingual 1 (one) Tab Sublingual Tab Sublingual qod for 0 days Quantity: 30 {Tablet} Refills: 3 Ordered: 14-Oct-2019 Marlon Friedman LPN Start : 01-Nov-2018 End : 14-Oct-2019 Inactive Start: 11-01-2018 End: 10-14-2019 take 1 tablet under the tongue every other day Cyanocobalamin 2500 MCG Sublingual Tablet Sublingual 1 (one) Tab Sublingual Tab Sublingual qod for 0 days Quantity: 30 {Tablet} Refills: 3 Ordered: 14-Oct-2019 Marlon Friedman LPN Start : 01-Nov-2018 End : 14-Oct-2019 Inactive Start: 10-27-2016 End: 02-08-2018 take 1 tablet under the tongue every other day Cyanocobalamin 2500 MCG Sublingual Tablet Sublingual 1 (one) Tab Sublingual Tab Sublingual qod for 0 days Quantity: 30 {Tablet} Refills: 3 Ordered: 08-Feb-2018 Mily Chu Start : 27-Oct-2016 End : 08-Feb-2018 Discontinued Problems Active Problems Problem Classification Problem Date Documented Date Episodic/Chronic Biliary tract disease (20 sources) Biliary sludge; Translations: [Sludge in gallbladder] 03-23-2018 Chronic Comment on above: 10/24 Biliary tract disease (20 sources) Biliary sludge; Translations: [Sludge in gallbladder] 07-25-2020 Episodic Comment on above: 10/24 Cardiac dysrhythmias (20 sources) Ventricular premature beats; Translations: [PVC (premature ventricular contraction)] 11-01-2018 Chronic Comment on above: ca score test ordred stable, no further s ymptomsca score test completed Cataract (20 sources) Bilateral cataracts; Translations: [Cataracts, bilateral] 03-23-2018 Chronic Chronic kidney disease (2 sources) Chronic kidney disease stage 4; Translations: [CKD (chronic kidney disease) stage 4, GFR 15-29 ml/min] 05-26-2022 Chronic Disorders of lipid metabolism (20 sources) Hypercholesterolemia; Translations: [Elevated cholesterol] Onset: 08-12-2024 Resolved: 05-26-2022 03-23-2018 Chronic Comment on above: LDL 187 .Health poin t 3-4 /weekIncrese zocor from 10-20 mg in 2-3 weeks when muscle aches are better, now stableCrestor: had SELipitor: muscle cramps.Dinesh b[facility] at [facility] was previous PCP LDL 187 .Health poin t 3-4 /weekIncrese zocor from 10-20 mg in 2-3 weeks when muscle aches are better, now stableWill try [place] 3 from Food, Red yeast Rice, slow release NiacinCrestor: had SELipitor: muscle cramps.Dinesh b[facility] at [facility] was previous PCP Health point 3-4 /we ekIncrese zocor from 10-20 mg in 2-3 weeks when muscle aches are better, now stableCrestor: had SELipitor: muscle cramps.Dinesh b[facility] at [facility] was previous PCP Crestor: had SELipit or: muscle cramps. Had some SE with zocor but then tolerated. Dinesh b[facility] at [facility] was previous PCP NMR profile, go from therestrong family hx. takes Zocor but stopped this week, muscle cramps are too bothersome (feet, legs, arms, etc). NMR profile quite el evated, has been off statin. declines Repatha-would d/c zocor and switch to pravastatin or fluvastatin which may be better tolerated with less myopathy. Also advised to take with [id number] family hx. took Zocor but severe leg/foot, some arm muscle cramps repeat lipids in 3 m onths, if remains stable she wants to try every other day dosing.strong family hx. took Zocor but severe leg/foot, some arm muscle cramps-NMR profile quite elevated, has been off statin. declines Repatha-we switched her from zocor to pravastatin with C0Q-10, no SE reported and numbers looking much better. on pravastatin daily .strong family hx. took Zocor but severe leg/foot, some arm muscle cramps-NMR profile quite elevated, has been off statin. declines Repatha-we switched her from zocor to pravastatin with C0Q-10, no SE reported and numbers looking much better. Immunizations and screening for infectious disease (20 sources) Patient encounter status; Translations: [Encounter for hepatitis C virus screening test for high risk patient] Resolved: 05-25-2022 07-25-2020 Episodic Leukemias (20 sources) Leukemias Menopausal disorders (6 sources) Postmenopausal bleeding; Translations: [Postmenopausal bleeding] Onset: 08-30-2024 08-22-2024 Chronic Comment on above: failed EMB. US pendi ng. 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 Osteoarthritis (20 sources) Osteoarthritis; Translations: [Osteoarthritis] 03-23-2018 Chronic Comment on above: R knee, scheduled fo r knee replacement 09/24/[address] Shin Other and unspecified benign neoplasm (20 sources) Polyp of colon; Translations: [Sessile colonic polyp] 10-14-2019 Episodic Comment on above: repeat colonoscopy 7 yrs had it 07-18-2019 repeat colonoscopy 7 yrs, done 07-18-2019 Other circulatory disease (20 sources) Elevated blood-pressure reading without diagnosis of hypertension; Translations: [Elevated blood pressure reading without diagnosis of hypertension] Resolved: 01-13-2023 06-16-2022 Episodic Comment on above: BP looks very good t talisha. No concerns. Eating a lot healthier, seeing RD Other connective tissue disease (20 sources) Cramp in limb; Translations: [Cramps, extremity] Resolved: 01-27-2017 01-27-2017 Episodic Other connective tissue disease (13 sources) Pain in left lower limb; Translations: [Pain in left leg] 05-11-2022 Episodic Other connective tissue disease (4 sources) Pain in left leg; Translations: [Pain in limb] 05-08-2022 Episodic Other diseases of veins and lymphatics (13 sources) Peripheral venous insufficiency; Translations: [Venous insufficiency (chronic) (peripheral)] 05-11-2022 Episodic Other diseases of veins and lymphatics (5 sources) Venous insufficiency (chronic) (peripheral); Translations: [Venous (peripheral) insufficiency, unspecified] 05-08-2022 Episodic Other female genital disorders (5 sources) Stenosis of cervix; Translations: [Stricture and stenosis of cervix uteri] 08-22-2024 Episodic Comment on above: failed EMB Other liver diseases (20 sources) Liver cyst; Translations: [Hepatic cyst] 03-23-2018 Chronic Other nutritional; endocrine; and metabolic disorders (20 sources) Obesity; Translations: [Obesity] 03-23-2018 Chronic Other nutritional; endocrine; and metabolic disorders (20 sources) Body mass index 30+ - obesity; Translations: [BMI 30.0-30.9,adult] Resolved: 09-03-2022 01-27-2017 Chronic Other nutritional; endocrine; and metabolic disorders (20 sources) Body mass index 25-29 - overweight; Translations: [BMI 29.0-29.9,adult] 10-14-2019 Chronic Other nutritional; endocrine; and metabolic disorders (3 sources) Body mass index 25-29 - overweight; Translations: [BMI 29.0-29.9,adult] 07-25-2020 Episodic Other nutritional; endocrine; and metabolic disorders (20 sources) Overweight in adulthood with body mass index of 25 or more but less than 30; Translations: [BMI 29.0-29.9,adult] 03-07-2019 Episodic Other upper respiratory disease (20 sources) Lesion of nose; Translations: [Lesion of nose] 03-23-2018 Episodic Other upper respiratory infections (13 sources) Common cold; Translations: [Acute nasopharyngitis [common cold]] 04-21-2021 Episodic Residual codes; unclassified (20 sources) History of colonoscopy; Translations: [H/O colonoscopy] 03-23-2018 Episodic Comment on above: sera 2008, repeta 10 years. Residual codes; unclassified (20 sources) Family history of leukemia; Translations: [Family history of CLL (chronic lymphoid leukemia)] 03-23-2018 Episodic Residual codes; unclassified (20 sources) Finding of systemic arterial pressure; Translations: [Abnormal ankle brachial index (MEGAN)] 07-25-2020 Episodic Residual codes; unclassified (20 sources) Non-smoker; Translations: [Nonsmoker] 07-25-2020 Episodic Residual codes; unclassified (20 sources) At increased risk of cardiovascular disease; Translations: [At increased risk for cardiovascular disease] 06-20-2022 Episodic Comment on above: discussed her ASCVD risk and she is aware, willing to try different statin with potentially less SE Thyroid disorders (6 sources) Thyroid nodule; Translations: [Nontoxic single thyroid nodule] Onset: 03-14-2025 03-23-2024 Chronic Comment on above: Patient is a 73-year -old female with newly/incidentally diagnosed thyroid nodularity, euthyroid from an endocrine standpoint, who denies any compressive symptomology. She presents with a 1.2 cm TI-RADS 5 nodule per radiology report of a 03/01/2024 ultrasound. I reviewed with her the prevalence of thyroid nodularity as found with routine thyroid ultrasound examination and the accompanying triage system with the TI-RADS rating. I described to Ms. Rg that I actually came to a different TI-RADS rating as I reviewed her original imaging and shared that this was because I believe the measurements on the nodule were slightly off of what was actually reflected. Couched in patient's composite TI-RADS rating was a 3 point score for a [id number] thyroid nodule shape when in fact her nodule is [id number]. If this amendment is granted then her TI-RADS rating becomes a 4 and no biopsy is indicated. Given that radiology recommended biopsy and patient had prepared herself, mentally, for this event I stated we could proceed as expected. Patient was receptive and the procedure was undertaken uncomplicated fashion during today's visit. She was notified of the expected reporting time for cytopathology as well as the extended reporting time that accompanies any genomic processing- if indicated. Unclassified (20 sources) Postmenopausal state; Translations: [Increased body mass index] 03-23-2018 Episodic Comment on above: sera 2008, repeta 10 years. Unclassified (20 sources) Nonsmoker; Translations: [Non-smoker] 03-23-2018 Unclassified (20 sources) BMI 29.0-29.9,adult Unclassified (20 sources) B12 deficiency due to diet Unclassified (20 sources) Elevated cholesterol Unclassified (20 sources) Postmenopausal (Renamed from Postmenopausal status) Unclassified (20 sources) Encounter for screening mammogram for breast cancer (Renamed from Encounter for screening mammogram for malignant neoplasm of breast) Unclassified (20 sources) Unclassified (20 sources) Physical exam for work or camp (Renamed from Encounter for school health examination); Translations: [Patient examined] 03-23-2018 Unclassified (20 sources) BMI 30.0-30.9,adult Unclassified (20 sources) BMI 31.0-31.9,adult Unclassified (20 sources) Hepatic cyst Unclassified (20 sources) H/O colonoscopy Unclassified (20 sources) Sludge in gallbladder Unclassified (20 sources) Cramps, extremity Unclassified (20 sources) Varicose veins of lower extremities without ulcer or inflammation Unclassified (20 sources) PVC (premature ventricular contraction) Unclassified (19 sources) Screening status; Translations: [Encounter for screening for malignant neoplasm of colon (Renamed from Special screening for malignant neoplasms, colon)] 10-14-2019 Unclassified (10 sources) Varicose veins of legs Unclassified (1 source) Family history of CLL (chronic lymphoid leukemia) Varicose veins of lower extremity (20 sources) Varicose veins of lower extremity without ulcer AND without inflammation; Translations: [Varicose veins of bilateral lower limbs] 03-23-2018 Episodic Comment on above: MEGAN .79 MEGAN .79, saw Dr. Ochoa rn. eventually will have procedure for them Past or Other Problems Problem Classification Problem Date Documented Da te Episodic/Chronic Cataract (20 sources) Cataract Diabetes mellitus without complication (20 sources) Impaired fasting glucose; Translations: [Impaired fasting glycaemia] Onset: 08-11-2024 03-23-2018 Episodic Comment on above: A1c 5.9, self monito r repeat at home A1c 5.9, self monito r has come down to 5.7, with metformin prn A1c 5.9, self monito r has come down to 5.7, with metformin, now 5.8 not on Metformin A1c 5.8%, no meds. A1c 5.8%, no meds. w orking hard on diet/exercise. check urine for protein Residual codes; unclassified (20 sources) Increased body mass index; Translations: [BMI 29.0-29.9,adult] 03-23-2018 Episodic Unclassified (20 sources) Breast neoplasm screening status; Translations: [Screening status] Onset: 08-23-2024 03-23-2018 Episodic Unclassified (20 sources) Pregnancies 03-23-2018 Comment on above: 2 Unclassified (20 sources) miscarriage/abortio n 2 03-23-2018 Unclassified (20 sources) Unspecified Diagnosis 03-23-2018 Unclassified (20 sources) Encounter for general adult medical examination w/o abnormal findings (Renamed from Encounter for general adult medical examination without abnormal findings); Translations: [Patient encounter status] 03-23-2018 Unclassified (20 sources) Encounter for routine adult medical exam with abnormal findings; Translations: [Patient encounter status] 03-23-2018 Unclassified (20 sources) Patient encounter status; Translations: [Encounter for general adult medical examination w/o abnormal findings (Renamed from Encounter for general adult medical examination without abnormal findings)] 03-23-2018 Unclassified (20 sources) Non-smoker; Translations: [Nonsmoker] 03-23-2018 Unclassified (1 source) Patient examined; Translations: [Physical exam for work or camp (Renamed from Encounter for school health examination)] 03-23-2018 Unclassified (10 sources) Sessile colonic polyp Unclassified (9 sources) Finding of systemic arterial pressure; Translations: [Abnormal ankle brachial index (MEGAN)] 07-25-2020 Unclassified (5 sources) Encounter for hepatitis C virus screening test for high risk patient Unclassified (1 source) Cataracts, bilateral Varicose veins of lower extremity (9 sources) Varicose veins of bilateral lower limbs; Translations: [Varicose veins of legs] 06-14-2019 Results Test Name Value Interpretation Reference Range Facility Thyroidon 03-02-2025 Thyroid [facility] [address] [place], [place] [address] Thyroid MR#: [id number] Acct: [id number] Name: NERISSA RG Rep #: [id number] : [id number] F [id number] From: Terrance Stewart MD PCP: JOSE MANUEL FigueroaC Status: REG CLI Study: Thyroid Date of Exam: 03/02/25 Exam# [id number] Ordering Dr: Kiet Crawford MD PROCEDURE: THYROID 03/02/2025 REASON FOR EXAM: THYROID NODULE TECHNIQUE: Procedure Code: USTHY Modality: US Procedure: THYROID COMPARISON: 03/01/2024 FINDINGS: Right thyroid lobe size: 4.6 x 2.1 x 1.9 cm Left thyroid lobe size: 3.9 x 1.3 x 1.1 cm Isthmus: 0.2 cm Background parenchymal echotexture is homogeneous. Nodules: 1. Lobe: Left, Location: Mid, Size: 1.2 x 1.0 x 0.9 cm, Stability: Stable Composition: Mixed cystic and solid (+1) Echogenicity: Hypoechoic (+2) Margin: Smooth (+0) Shape: Wider than tall (+0) Echogenic Foci: None (+0) TI-RADS: <2 = TR 1 * 2 = TR 2 * 3 = TR 3 * 4-6 = TR 4 * >6 = TR 5 2. Lobe: Left, Location: Mid, Size: 0.8 x 0.7 x 0.3 cm, Stability: Stable Composition: Solid or almost completely solid (+2) Echogenicity: Hypoechoic (+2) Margin: Smooth (+0) Shape: Wider than tall (+0) Echogenic Foci: None (+0) TI-RADS: <2 = TR 1 * 2 = TR 2 * 3 = TR 3 * 4-6 = TR 4 * >6 = TR 5 There is a subcentimeter physiologic left neck lymph node US/Thyroid IMPRESSION: Stable homogeneous thyroid gland with stable nodules in the left thyroid lobe that can be followed sonographically. No suspicious findings or intervention needed. RECOMMENDATION: Based on most suspicious nodule. Nodule size = largest diameter Only evaluate nodule if =>5 mm. Growth > 20% in 2 dimensions = worsening. Follow up to 4 nodules. Recommend biopsy for no more than 2 nodules. Reading Location: [id number] CC: JEAN Lopez; Dr. Kiet Crawford MD Mixed Signal Design Engineer: Signed Normal [facility] Absolute lymphocyte countOrd ered By: Herlinda Lopez on 02-08-2025 Lymphocytes Auto (Unsp spec) [#/Vol] 3.32 10*3/uL 0.83-4.51 [facility] Absolute neutrophil countOrd ered By: Herlinda Lopez on 02-08-2025 Neutrophils (Bld) [#/Vol] 4.2 10*3/uL 2.0-7.7 [facility] Anion gap in Serum or Plasma Ordered By: Herlinda Lopez on 02-08-2025 Anion gap [Moles/Vol] 12 mmol/L 5- [facility] Automated lymphocyte count a s percentage of total leukocytesOrdered By: Herlinda Lopez on 02-08-2025 Lymphocytes/100 WBC Auto (Unsp spec) 40.0 % - [facility] BUN/creatinine ratioOrdered By: Herlinda Lopez on 02-08-2025 Urea nitrogen/Creatinine [Mass ratio] 22.5 mg/mg High 10-20 [facility] Basophil percentageOrdered B y: Herlinda Lopez on 02-08-2025 Basophils/100 WBC (Bld) 0.7 % 0-1 [facility] Bilirubin, totalOrdered By: Herlinda Lopez on 02-08-2025 Bilirubin [Mass/Vol] 0.59 mg/dL 0.00-1.30 [facility] CBC W/Diff, Automatedon 01-17 Absolute Lymph 3.32 X10 3/uL Normal 0.83-4.51 [facility] Comment on above: Performed By: #### L 500.4100, L503.0106, L500.4050, L501.9985, L506.0200, L100.0100 #### [facility] [address] [place], [address] Absolute Neut 4.2 X10 3/uL Normal 2.0-7.7 [facility] Comment on above: Performed By: #### L 500.4100, L503.0106, L500.4050, L501.9985, L506.0200, L100.0100 #### [facility] [address] [place], [address] Basophils/100 WBC (Bld) 0.7 % Normal 0-1 [facility] Comment on above: Performed By: #### L 500.4100, L503.0106, L500.4050, L501.9985, L506.0200, L100.0100 #### [facility] [address] [place], [address] Eosinophils/100 WBC (Bld) 2.4 % Normal 0-5 [facility] Comment on above: Performed By: #### L 500.4100, L503.0106, L500.4050, L501.9985, L506.0200, L100.0100 #### [facility] [address] [place], [address] Erythrocyte distribution width (RBC) [Ratio] 14.1 % Normal 11.6-14.6 [facility] Comment on above: Performed By: #### L 500.4100, L503.0106, L500.4050, L501.9985, L506.0200, L100.0100 #### [facility] [address] [place], [address] Hematocrit (Bld) [Volume fraction] 43.1 % Normal 37-47 [facility] Comment on above: Performed By: #### L 500.4100, L503.0106, L500.4050, L501.9985, L506.0200, L100.0100 #### [facility] [address] [place], [address] Hemoglobin (Bld) [Mass/Vol] 14.0 g/dL Normal 12.0-15.0 [facility] Comment on above: Performed By: #### L 500.4100, L503.0106, L500.4050, L501.9985, L506.0200, L100.0100 #### [facility] [address] [place], [address] IG% 0.100 Normal 0.0-0.9 [facility] Comment on above: Result Comment: IG% - Immature Granulocytes (promyelocytes, myelocytes and metamyelocytes) > 1% indicates that a LEFT SHIFT is Present. Performed By: #### L 500.4100, L503.0106, L500.4050, L501.9985, L506.0200, L100.0100 #### [facility] [address] [place], [address] Lymphocytes/100 WBC (Bld) 40.0 % Normal 19-41 [facility] Comment on above: Performed By: #### L 500.4100, L503.0106, L500.4050, L501.9985, L506.0200, L100.0100 #### [facility] [address] [place], [address] MCH (RBC) [Entitic mass] 28.6 pg Normal 27.0-32.0 [facility] Comment on above: Performed By: #### L 500.4100, L503.0106, L500.4050, L501.9985, L506.0200, L100.0100 #### [facility] [address] [place], [address] MCHC (RBC) [Mass/Vol] 32.5 g/dL Normal 32-36 [facility] Comment on above: Performed By: #### L 500.4100, L503.0106, L500.4050, L501.9985, L506.0200, L100.0100 #### [facility] [address] [place], [address] MCV (RBC) [Entitic vol] 88.1 fL Normal 81-99 [facility] Comment on above: Performed By: #### L 500.4100, L503.0106, L500.4050, L501.9985, L506.0200, L100.0100 #### [facility] [address] [place], [address] Monocytes/100 WBC (Bld) 5.7 % Normal 0-10 [facility] Comment on above: Performed By: #### L 500.4100, L503.0106, L500.4050, L501.9985, L506.0200, L100.0100 #### [facility] [address] [place], [address] Neutrophils/100 WBC (Bld) 51.1 % Normal 47-70 [facility] Comment on above: Performed By: #### L 500.4100, L503.0106, L500.4050, L501.9985, L506.0200, L100.0100 #### [facility] [address] [place], [address] Nucleated RBC (Bld) [#/Vol] 0 10*3/uL Normal 0-5 [facility] Comment on above: Performed By: #### L 500.4100, L503.0106, L500.4050, L501.9985, L506.0200, L100.0100 #### [facility] [address] [place], [address] Platelet mean volume (Bld) [Entitic vol] 10.8 fL Normal 6.2-12.0 [facility] Comment on above: Performed By: #### L 500.4100, L503.0106, L500.4050, L501.9985, L506.0200, L100.0100 #### [facility] [address] [place], [address] Platelets (Bld) [#/Vol] 392 10*3/uL Normal 150-450 [facility] Comment on above: Performed By: #### L 500.4100, L503.0106, L500.4050, L501.9985, L506.0200, L100.0100 #### [facility] [address] [place], [address] RBC (Bld) [#/Vol] 4.89 10*6/uL Normal 4.2-5.4 [facility] Comment on above: Performed By: #### L 500.4100, L503.0106, L500.4050, L501.9985, L506.0200, L100.0100 #### [facility] [address] [place], [address] RDW SD 45.2 fl High 35.1-43.9 [facility] Comment on above: Performed By: #### L 500.4100, L503.0106, L500.4050, L501.9985, L506.0200, L100.0100 #### [facility] [address] [place], [address] WBC (Bld) [#/Vol] 8.3 10*3/uL Normal 4.4-11.0 [facility] Comment on above: Performed By: #### L 500.4100, L503.0106, L500.4050, L501.9985, L506.0200, L100.0100 #### [facility] [address] [place], [place], [id number] Calculated very low density lipoprotein (VLDL) cholesterol measurementOrdered By: Herlinda Lopez on 02-08-2025 Calculated very low density lipoprotein (VLDL) cholesterol measurement 23 mg/dL 5-40 [facility] Carbon dioxide, total [Moles /volume] in Central venous bloodOrdered By: Herlinda Lopez on 02-08-2025 CO2 [Moles/Vol] 23.2 mmol/L 21.0-32.0 [facility] Chloride assayOrdered By: Britt Lopez on 02-08-2025 Chloride [Moles/Vol] 103 mmol/L 98-108 [facility] Comprehensive Metabolic Prof ilon 02-08-2025 Albumin [Mass/Vol] 4.4 g/dL Normal 3.4-4.8 [facility] Comment on above: Performed By: #### L 500.4100, L503.0106, L500.4050, L501.9985, L506.0200, L100.0100 #### [facility] [address] [place], [address] Albumin/Globulin [Mass ratio] 1.5 {ratio} Normal 0.9-2.4 [facility] Comment on above: Performed By: #### L 500.4100, L503.0106, L500.4050, L501.9985, L506.0200, L100.0100 #### [facility] [address] [place], [place], [id number] ALK PHOS 75 U/L Normal 35-104 [facility] Comment on above: Performed By: #### L 500.4100, L503.0106, L500.4050, L501.9985, L506.0200, L100.0100 #### [facility] [address] [place], [address] ALT [Catalytic activity/Vol] 14 U/L Normal <=34 [facility] Comment on above: Performed By: #### L 500.4100, L503.0106, L500.4050, L501.9985, L506.0200, L100.0100 #### [facility] [address] [place], [address] AST [Catalytic activity/Vol] 21 U/L Normal <=31 [facility] Comment on above: Performed By: #### L 500.4100, L503.0106, L500.4050, L501.9985, L506.0200, L100.0100 #### [facility] [address] [place], [address] Bilirubin [Mass/Vol] 0.59 mg/dL Normal 0.00-1.30 [facility] Comment on above: Performed By: #### L 500.4100, L503.0106, L500.4050, L501.9985, L506.0200, L100.0100 #### [facility] [address] [place], [address] BUN/CRE 22.5 RATIO High 10-20 [facility] Comment on above: Performed By: #### L 500.4100, L503.0106, L500.4050, L501.9985, L506.0200, L100.0100 #### [facility] [address] [place], [address] Calcium [Mass/Vol] 9.5 mg/dL Normal 7.6-11.0 [facility] Comment on above: Performed By: #### L 500.4100, L503.0106, L500.4050, L501.9985, L506.0200, L100.0100 #### [facility] [address] [place], [address] Chloride [Moles/Vol] 103 mmol/L Normal 98-108 [facility] Comment on above: Performed By: #### L 500.4100, L503.0106, L500.4050, L501.9985, L506.0200, L100.0100 #### [facility] [address] [place], [address] CO2 [Moles/Vol] 23.2 mmol/L Normal 21.0-32.0 [facility] Comment on above: Performed By: #### L 500.4100, L503.0106, L500.4050, L501.9985, L506.0200, L100.0100 #### [facility] [address] [place], [address] Creatinine [Mass/Vol] 0.84 mg/dL Normal 0.70-1.20 [facility] Comment on above: Performed By: #### L 500.4100, L503.0106, L500.4050, L501.9985, L506.0200, L100.0100 #### [facility] [address] [place], [address] GAP 12 Normal 5-15 [facility] Comment on above: Performed By: #### L 500.4100, L503.0106, L500.4050, L501.9985, L506.0200, L100.0100 #### [facility] [address] [place], [address] GFR/1.73 sq M.predicted among non-blacks MDRD (S/P/Bld) [Vol rate/Area] 74 mL/min/{1.73_m2} Normal >60 [facility] Comment on above: Result Comment: mL/m in/1.73m2 CKD-EPI Creatinine Equation (2020) Performed By: #### L 500.4100, L503.0106, L500.4050, L501.9985, L506.0200, L100.0100 #### [facility] [address] [place], [address] Globulin (S) [Mass/Vol] 3.0 g/dL Normal 2.2-4.2 [facility] Comment on above: Performed By: #### L 500.4100, L503.0106, L500.4050, L501.9985, L506.0200, L100.0100 #### [facility] [address] [place], [address] Glucose [Mass/Vol] 91 mg/dL Normal 70-99 [facility] Comment on above: Performed By: #### L 500.4100, L503.0106, L500.4050, L501.9985, L506.0200, L100.0100 #### [facility] [address] [place], [address] Potassium [Moles/Vol] 4.1 mmol/L Normal 3.3-5.1 [facility] Comment on above: Performed By: #### L 500.4100, L503.0106, L500.4050, L501.9985, L506.0200, L100.0100 #### [facility] [address] [place], [address] Sodium [Moles/Vol] 138 mmol/L Normal 133-145 [facility] Comment on above: Performed By: #### L 500.4100, L503.0106, L500.4050, L501.9985, L506.0200, L100.0100 #### [facility] [address] [place], [address] T PROT 7.4 g/dL Normal 5.9-8.4 [facility] Comment on above: Performed By: #### L 500.4100, L503.0106, L500.4050, L501.9985, L506.0200, L100.0100 #### [facility] [address] [place], [address] Urea nitrogen [Mass/Vol] 19 mg/dL Normal 4-19 [facility] Comment on above: Performed By: #### L 500.4100, L503.0106, L500.4050, L501.9985, L506.0200, L100.0100 #### [facility] [address] [place], [address] Eosinophil percentageOrdered By: Herlinda Lopez on 02-08-2025 Eosinophils/100 WBC (Bld) 2.4 % 0-5 [facility] Erythrocyte distribution wid th ratioOrdered By: Herlinda Lopez on 02-08-2025 Erythrocyte distribution width (RBC) [Ratio] 14.1 % 11.6-14.6 [facility] Erythrocyte distribution wid th standard deviationOrdered By: Herlinda Lopez on 02-08-2025 Erythrocyte distribution width (RBC) [Ratio] 45.2 fl High 35.1-43.9 [facility] Folate [Mass/volume] in Seru m or PlasmaOrdered By: Herlinda Lopez on 02-08-2025 Folate [Mass/Vol] ng/mL High 4.60-34.80 [facility] Comment on above: Hemolysis, Results w ill be affected, Requires Recollection. Folates,Serum (Folic Acid)on 02-08-2025 FOLATES,SERUM > 40.00 High 4.60-34.80 [facility] Comment on above: Order Comment: N Result Comment: Hemo lysis, Results will be affected, Requires Recollection. Performed By: #### L 500.4100, L503.0106, L500.4050, L501.9985, L506.0200, L100.0100 #### [facility] [address] [place], [address] Glomerular filtration rate ( GFR) estimation/1.73 sq m using serum, plasma, or whole bOrdered By: Herlinda Lopez on 02-08-2025 GFR/1.73 sq M.predicted among non-blacks MDRD (S/P/Bld) [Vol rate/Area] 74 mL/min/{1.73_m2} >60 [facility] Comment on above: mL/min/1.73m2 CKD-EP I Creatinine Equation (2021) Hematocrit Auto (Bld) [Volum e fraction]Ordered By: Herlinda Lopez on 02-08-2025 Hematocrit (Bld) [Volume fraction] 43.1 % 37-47 [facility] Hemoglobin A1con 02-08-2025 HbA1c (Bld) [Mass fraction] 5.9 % High <=5.6 [facility] Comment on above: Result Comment: Norm al < 5.7 % Prediabetic 5.7 - 6.4 % Diabetic >or= 6.5 % Please note range changes. Performed By: #### L 500.4100, L503.0106, L500.4050, L501.9985, L506.0200, L100.0100 #### [facility] [address] [place], [place], [address] Hemoglobin A1c percentageOrd ered By: Herlinda Lopez on 02-08-2025 HbA1c (Bld) [Mass fraction] 5.9 % High <5.7 [facility] Comment on above: Normal < 5.7 % Predi abetic 5.7 - 6.4 % Diabetic >or= 6.5 % Please note range changes. Hemoglobin measurementOrdere d By: Herlinda Lopez on 02-08-2025 Hemoglobin (Bld) [Mass/Vol] 14.0 g/dL 12.0-15.0 [facility] Immature granulocytes/100 WB C Auto (Bld)Ordered By: Herlinda Lopez on 02-08-2025 Immature granulocytes/100 WBC (Bld) 0.100 % 0.0-0.9 [facility] Comment on above: IG% - Immature Granu locytes (promyelocytes, myelocytes and metamyelocytes) > 1% indicates that a LEFT SHIFT is Present. LDL calc ser/plasOrdered By: Herlinda Lopez on 02-08-2025 Cholesterol in LDL [Mass/Vol] 124 mg/dL [facility] Comment on above: Cfhgccfhit=870-209 m g/dL & Higher Hdns=029 mg/dL or greaterFriedwald Equation for LDL-C Laboratory - Chemistry and C hemistry - challengeOrdered By: Herlinda Lopez on 02-08-2025 AST [Catalytic activity/Vol] 21 U/L <32 [facility] Lipid Profileon 02-08-2025 CHOL:HDL 2.96 Normal [facility] Comment on above: Performed By: #### L 500.4100, L503.0106, L500.4050, L501.9985, L506.0200, L100.0100 #### [facility] [address] [place], [address] Cholesterol [Mass/Vol] 222 mg/dL High <=200 [facility] Comment on above: Result Comment: Chol esterol level, Desirable <200 mg/dL Borderline high cholesterol 200-239 mg/dL High cholesterol >=240 mg/dL Recommendations of the NCEP Adult Treatment Panel for the following risk-cutoff thresholds for the [place] population. Performed By: #### L 500.4100, L503.0106, L500.4050, L501.9985, L506.0200, L100.0100 #### [facility] [address] [place], [address] Cholesterol in HDL [Mass/Vol] 75 mg/dL Normal [facility] Comment on above: Result Comment: [place]acy onal Cholesterol Education Program (NCEP) guidelines: <40 mg/dL: Low HDL-cholesterol (major risk factor for CHD) >= 60 mg/dL: High HDL-cholesterol (negative risk factor for CHD) HDL-cholesterol is affected by a number of factors, e.g. smoking, exercise, hormones, sex and age. Performed By: #### L 500.4100, L503.0106, L500.4050, L501.9985, L506.0200, L100.0100 #### [facility] [address] [place], [address] Cholesterol in LDL [Mass/Vol] 124 mg/dL Normal [facility] Comment on above: Result Comment: Bord zkalai=566-149 mg/dL Higher Syzh=213 mg/dL or greater Friedwald Equation for LDL-C Performed By: #### L 500.4100, L503.0106, L500.4050, L501.9985, L506.0200, L100.0100 #### [facility] [address] [place], [address] Cholesterol in VLDL [Mass/Vol] 23 mg/dL Normal 5-40 [facility] Comment on above: Performed By: #### L 500.4100, L503.0106, L500.4050, L501.9985, L506.0200, L100.0100 #### [facility] [address] [place], [address] Triglyceride [Mass/Vol] 114 mg/dL Normal [facility] Comment on above: Result Comment: The drugs N-Acetylcysteine and Metamizole may falsely depress this assay. Normal range: <150 mg/dL Borderline High: 150-199 mg/dL High: 200-499 mg/dL Very High: >500 mg/dL Performed By: #### L 500.4100, L503.0106, L500.4050, L501.9985, L506.0200, L100.0100 #### [facility] [address] [place], [place], [id number] MCV (mean corpuscular volume ) determinationOrdered By: Herlinda Lopez on 02-08-2025 MCV (RBC) [Entitic vol] 88.1 fL 81-99 [facility] Mean corpuscular hemoglobin (MCH) determinationOrdered By: Herlinda Lopez on 02-08-2025 MCH (RBC) [Entitic mass] 28.6 pg 27.0-32.0 [facility] Mean corpuscular hemoglobin concentration (MCHC) determinationOrdered By: Herlinda Lopez on 02-08-2025 MCHC (RBC) [Mass/Vol] 32.5 g/dL 32-36 [facility] Mean platelet volume determi nationOrdered By: Herlinda Lopez on 02-08-2025 Platelet mean volume (Bld) [Entitic vol] 10.8 fL 6.2-12.0 [facility] Monocyte percentageOrdered B y: Herlinda Lopez on 02-08-2025 Monocytes/100 WBC (Bld) 5.7 % 0-10 [facility] Neutrophil percentageOrdered By: Herlinda Lopez on 02-08-2025 Neutrophils/100 WBC (Bld) 51.1 % 47-70 [facility] Nucleated red blood cell per centageOrdered By: Herlinda Lopez on 02-08-2025 Nucleated RBC/100 WBC (Bld) [Ratio] 0 % 0-5 [facility] Platelet countOrdered By: Britt Lopez on 02-08-2025 Platelets (Bld) [#/Vol] 392 10*3/uL 150-450 [facility] Potassium measurement (mass/ volume)Ordered By: Herlinda Lopez on 02-08-2025 Potassium (Unsp spec) [Mass/Vol] 4.1 mmol/L 3.3-5.1 [facility] RBC Auto (Bld) [#/Vol]Ordere d By: Herlinda Lopez on 02-08-2025 RBC (Bld) [#/Vol] 4.89 10*6/uL 4.2-5.4 [facility] Screening total cholesterol/ high density lipoprotein (HDL) cholesterol ratioOrdered By: Herlinda Lopez on 02-08-2025 Cholesterol.total/Catarina sterol in HDL [Mass ratio] 2.96 {ratio} [facility] Serum creatinine measurement (mass/volume)Ordered By: Herlinda Lopez on 02-08-2025 Creatinine [Mass/Vol] 0.84 mg/dL 0.70-1.20 [facility] Serum globulin measurementOr dered By: Herlinda Lopez on 02-08-2025 Globulin (S) [Mass/Vol] 3.0 g/dL 2.2-4.2 [facility] Serum glucose measurement (m ass/volume)Ordered By: Herlinda Lopez on 02-08-2025 Glucose [Mass/Vol] 91 mg/dL 70-99 [facility] Serum or plasma alanine martinez otransferase (ALT) measurementOrdered By: Herlinda Lopez on 02-08-2025 ALT [Catalytic activity/Vol] 14 U/L <35 [facility] Serum or plasma albumin delores urement (mass/volume)Ordered By: Herlinda Lopez on 02-08-2025 Albumin [Mass/Vol] 4.4 g/dL 3.4-4.8 [facility] Serum or plasma albumin/glob ulin mass ratioOrdered By: Herlinda Lopez on 02-08-2025 Albumin/Globulin [Mass ratio] 1.5 {ratio} 0.9-2.4 [facility] Serum or plasma alkaline aubrey sphatase measurementOrdered By: Herlinda Lopez on 02-08-2025 ALP [Catalytic activity/Vol] 75 U/L 35-104 [facility] Serum or plasma calcium delores urement (mass/volume)Ordered By: Herlinda Lopez on 02-08-2025 Calcium [Mass/Vol] 9.5 mg/dL 7.6-11.0 [facility] Serum or plasma cholesterol in HDL measurement (mass/volume)Ordered By: Herlinda Lopez on 02-08-2025 Cholesterol in HDL [Mass/Vol] 75 mg/dL >40 [facility] Comment on above: National Cholesterol Education Program (NCEP) guidelines:<40 mg/dL: Low HDL-cholesterol (major risk factor for CHD)>= 60 mg/dL: High HDL-cholesterol (negative risk factor for CHD)HDL-cholesterol is affected by a number of factors, e.g. smoking, exercise, hormones, sex and age. Serum or plasma cholesterol measurement (mass/volume)Ordered By: Herlinda Lopez on 02-08-2025 Cholesterol [Mass/Vol] 222 mg/dL High <201 [facility] Comment on above: Cholesterol level, D esirable <200 mg/dLBorderline high cholesterol 200-239 mg/dLHigh cholesterol >=240 mg/dLRecommendations of the NCEP Adult Treatment Panel for the following risk-cutoff thresholds for the [place] population. Serum or plasma urea nitroge n measurement (mass/volume)Ordered By: Herlinda Lopez on 02-08-2025 Urea nitrogen [Mass/Vol] 19 mg/dL 4-19 [facility] Sodium levelOrdered By: Nata Lopez on 02-08-2025 Sodium [Moles/Vol] 138 mmol/L 133-145 [facility] Total proteinOrdered By: Fuad Lopez on 02-08-2025 Protein [Mass/Vol] 7.4 g/dL 5.9-8.4 [facility] Triglycerides measurementOrd ered By: Herlinda Lopez on 02-08-2025 Triglyceride [Mass/Vol] 114 mg/dL <199 [facility] Comment on above: The drugs N-Acetylcy steine and Metamizole may falsely depress this assay. Normal range: <150 mg/dLBorderline High: 150-199 mg/dLHigh: 200-499 mg/dLVery High: >500 mg/dL Vitamin B12on 02-08-2025 Cobalamin (Vitamin B12) [Mass/Vol] 1122 pg/mL High 180-914 [facility] Comment on above: Performed By: #### L 500.4100, L503.0106, L500.4050, L501.9985, L506.0200, L100.0100 #### [facility] [address] [facility] [facility] [place], [place], [address] Vitamin B12 ser/plasOrdered By: Herlinda Lopez on 02-08-2025 Cobalamin (Vitamin B12) [Mass/Vol] 1122 pg/mL High 180-914 [facility] White blood cell (WBC) count Ordered By: Herlinda Lopez on 02-08-2025 WBC (Bld) [#/Vol] 8.3 10*3/uL 4.4-11.0 [facility] Pelvic w/ Transvaginalon Pelvic w/ Transvaginal [facility] Services [address] [place], [place] [id number] Pelvic w/ Transvaginal MR#: [id number] Acct: [id number] Name: NERISSA RG Rep #: [id number] : [id number] F 74 From: Evangelista Cassidy i DO PCP: JEAN Figueroa Status: REG CLI Study: Pelvic w/ Transvaginal Date of Exam: 08/25/24 Exam# [id number] Ordering Dr: Tanvi Rodriguez NP G[employer]ATER[employer] ATTENDANT -C PROCEDURE: Pelvic ultrasound, transabdominal and transvaginal. 08/25/2024 REASON FOR EXAM: Postmenopausal bleeding. TECHNIQUE: Transabdominal and transvaginal ultrasound images of the female pelvis were obtained. COMPARISON: None available FINDINGS: Included portions of the urinary bladder show no specific abnormality. The uterus is retroverted on transvaginal images, measuring 6.0 x 3.4 x 2.7 cm. Transvaginal images were obtained to better visualize pelvic structures. No discrete cervical mass. There is a 1.5 cm isoechoic probable fibroid of the posterior fundus. The ovaries are not demonstrated on the provided images. No concerning adnexal mass lesion or free pelvic fluid. Endovaginal measurement of the endometrium is 2 mm. US/Pelvic w/ Transvaginal IMPRESSION: 1.5 cm probable fibroid of the posterior fundus. The endometrium measures 2 mm, within normal limits for a postmenopausal woman. Nonvisualization of the ovaries. No concerning adnexal mass or free pelvic fluid. [facility] CC: JEAN Lopez; JEAN Rodriguez Mixed Signal Design Engineer: Signed Normal [facility] Front Desk Office Visit Reporton 08-22-2024 Front Desk Office Visit Report [facility]'s [address], [address] [place] [address] OFFICE VISIT Date of Service: 08/22/24 MR#: [id number] Acct: [id number] Name: NERISSA RG Rep #: [id number] : 1950 Provider: JEAN epstein Age/Sex: 74/F Location: [facility] Status: Signed Intake Vital Signs 03/23/24 09:02 08/22/24 11:47 08/22/24 11:56 Height 5 ft 1 in 5 ft 1 in 5 ft 1 in Weight: 153 lb 4 oz BMI 28.9 BP 132/70 H Intake Visit Reasons: spotting, vaginal heaviness Chief Complaint: PMB, vaginal heaviness Break Out Man Required: No Is patient in pain?: No Allergies No Known Allergies Allergy (Verified 08/22/24 11:47) Medications ???Medication ???Instructions ???Recorded ???Confirmed ???Type vitamin D3 125 mcg (5,000 1 cap PO DAILY SUPPLEMENT 05/08/22 08/22/24 History unit)-vitamin K2 90 mcg capsule ibuprofen 200 mg tablet (Advil) 600 mg PO Q6H PRN Pain 09/10/22 History pravastatin 40 mg tablet 40 mg PO QHS CHOLESTEROL 09/10/22 08/22/24 History Is last menstrual period known: No Post menopausal: Yes Patient : No : No PFSH PFSH Medical History Cataracts, bilateral Bladder disease Leg pain, left Varicose veins of left lower extremity with inflammation Chronic venous insufficiency Post-menopausal Alcohol use Arthritis Cyst Non-smoker Leg cramps History of pain when walking History of irregular heartbeat Osteoarthritis High cholesterol Bone fracture Surgical History Hx of total knee arthroplasty History of appendectomy History of cataract removal with insertion of prosthetic lens History of total hip replacement Family History Mother A-fib Heart disease Hypertension High cholesterol Father Arthritis Pre-diabetes Hypertension High cholesterol Aunt Breast cancer Chronic lymphocytic leukemia Uncle Chronic lymphocytic leukemia Social History Smoking Status: Never smoker alcohol intake: current substance use type: does not use caffeine: Yes what type of physical activity do you participate in: walking, swimming and aerobics frequency: 3-4 times per week History 0 Elective abortions Hx Para Spontaneous abortions Hx # Term Pregnancies Ectopic pregnancies Hx # Pregnancies Multiple births # of living children HPI spotting, vaginal heaviness Details: NERISSA RG is a 74 year old who presents for pink spotting 2 weeks ago. She did have UTI at that time Dr Goodwin treated. States did also have random spotting about 2 months ago. ROS Const Constitutional: Reports system reviewed and no additional complaints, except as documented Eyes Eyes: Reports system reviewed and no additional complaints, except as documented GI GI: Denies abdominal pain or change in bowel habits : Reports as per HPI Exam Const General: cooperative and no acute distress Orientation: oriented x3 General: bladder normal to palpation External Female Exam: normal external appearance and normal appearance of the urethra Urethra: normal appearance of the urethra Speculum Exam - Vagina: normal vaginal discharge, vagina atrophic, no lesions and nontender Speculum Exam - Cervix: closed (stenotic) Bimanual Exam- Vagina Uterus: normal bimanual exam, uterine size normal, bladder normal to palpation, uterine shape normal, uterine mobility normal and non-tender Bimanual Exam- Adnexa, other: normal adnexae, no masses, non-tender and cystocele Pelvic Support: cystocele Other: Cervix is stenotic. Cleansed with betadine, stabilized with tenaculum and attempt to use graduate dilators. Was unable to pass further that 4cm with small wire dilator. Procedure deferred. Coding Level of Care Code Off vis,est,level 3 Diagnoses Postmenopausal bleeding N95.0 Stenosis, cervix N88.2 Assessment and Plan Assessment and Plan (1) Postmenopausal bleeding: Status: Acute Comment: failed EMB. US pending. (2) Stenosis, cervix: Status: Acute Comment: failed EMB Orders: Orders Pelvic w/ Transvaginal Today N95.0 - Postmenopausal bleeding Plan Proceed with ultrasound Discussed will probably need hysteroscopy D C with Dr Awad 08/22/24 1223 Date Tanvi Rodriguez NP GASATERIA ATTENDANT-C Ulises Signature: Date (if applicable) CC: Normal [facility] Breast imaging reportOrdered By: Denia Martinez on 08-17-2024 Study report [facility] Imaging Services [address] [place] [address] SCRN MAMM (CAD)W/SAMANTHA BILAT MR#: [id number] Acct: [id number] Name: NERISSA RG Rep #: [id number] : 1950 F 74 From: Nuvia Martinez MD PCP: Herlinda Lopez NP-C Status: REG C KEITH Study:SCRN MAMM (CAD)W/SAMANTHA BILAT Date of Exa m: 08/17/24 Exam# [id number] Ordering Dr: Dayanara Lopez EXAM: SCRN MAMM (CAD)W/SAMANTHA BILAT 08/17/2024 CLINICAL HISTORY: F, Age 74 y/o , SCREENING TECHNIQUE: Bilateral screening digital breast tomosynthesis with 2D and 3D images. Computeraided detection. COMPARISON: Prior exam(s) dated 07/20/2023, 06/23/2022. FINDINGS: TISSUE DENSITY: The breast tissue is heterogenously dense, which may obscure small masses. The mammogram demonstrates that the patient has dense breasts. Supplemental screening with whole breast ultrasound or MRI may be considered for further evaluation. . Bilateral Breast Mammographic Findings: No significant masses, calcifications or other abnormalities are identified. BI/SCRN MAMM (CAD)W/SAMANTHA BILAT IMPRESSION: Right Breast: BIRADS 1 NEGATIVE. Left Breast: BIRADS 1 NEGATIVE. OVERALL FINAL ASSESSMENT: BIRADS 1 NEGATIVE. RECOMMENDATION: Routine annual follow-up in 1 Year A letter with findings and recommendations will be mailed to the patient. Reading Location: [facility] CC: JEAN Lopez ~ Mixed Signal Design Engineer: Signed [facility] SCRN MAMM (CAD)W/SAMANTHA BILATo n 08-17-2024 SCRN MAMM (CAD)W/SAMANTHA BILAT [facility] Imaging Services [address] [place] [address] SCRN MAMM (CAD)W/SAMANTHA BILAT MR#: [id number] Acct: [id number] Name: NERISSA RG Rep #: [id number] : 1950 F 74 From: Denia Martinez MD PCP: JEAN Figueroa Status: REG CLI Study: SCRN MAMM (CAD)W/SAMANTHA BILAT Date of Exam: 07/12 Exam# [id number] Ordering Dr: Herlinda Lopez EXAM: SCRN MAMM (CAD)W/SAMANTHA BILAT 08/17/2024 CLINICAL HISTORY: F, Age 74 y/o , SCREENING TECHNIQUE: Bilateral screening digital breast tomosynthesis with 2D and 3D images. Computer aided detection. COMPARISON: Prior exam(s) dated 07/20/2023, 06/23/2022. FINDINGS: TISSUE DENSITY: The breast tissue is heterogenously dense, which may obscure small masses. The mammogram demonstrates that the patient has dense breasts. Supplemental screening with whole breast ultrasound or MRI may be considered for further evaluation. . Bilateral Breast Mammographic Findings: No significant masses, calcifications or other abnormalities are identified. BI/SCRN MAMM (CAD)W/SAMANTHA BILAT IMPRESSION: Right Breast: BIRADS 1 NEGATIVE. Left Breast: BIRADS 1 NEGATIVE. OVERALL FINAL ASSESSMENT: BIRADS 1 NEGATIVE. RECOMMENDATION: Routine annual follow-up in 1 Year A letter with findings and recommendations will be mailed to the patient. Reading Location: [facility] CC: JEAN Lopez Mixed Signal Design Engineer: Signed Normal [facility] Albumin DL <= 20 mg/L (U) [M ass/Vol]Ordered By: Herlinda Lopez on 08-03-2024 Urine Random Microalbumin < 12.0 mg/L NO RANGE EST. [facility] Anion gap in Serum or Plasma Ordered By: Herlinda Lopez on 08-03-2024 Anion gap [Moles/Vol] 12 mmol/L 5-15 [facility] BUN/creatinine ratioOrdered By: Herlinda Lopez on 08-03-2024 Urea nitrogen/Creatinine [Mass ratio] 21.3 mg/mg High 10-20 [facility] Bilirubin, totalOrdered By: Herlinda Lopez on 08-03-2024 Bilirubin [Mass/Vol] 0.48 mg/dL 0.00-1.30 [facility] Calculated very low density lipoprotein (VLDL) cholesterol measurementOrdered By: Herlinda Lopez on 08-03-2024 VLDL Cholesterol 20 mg/dL 5-40 [facility] Carbon dioxide, total [Moles /volume] in Central venous bloodOrdered By: Herlinda Lopez on 08-03-2024 CO2 [Moles/Vol] 22.3 mmol/L 21.0-32.0 [facility] Chloride assayOrdered By: Britt Lopez on 08-03-2024 Chloride [Moles/Vol] 103 mmol/L 98-108 [facility] Comprehensive Metabolic Prof ilon 08-03-2024 Albumin [Mass/Vol] 4.2 g/dL Normal 3.4-4.8 [facility] Comment on above: Performed By: #### L 501.9985, L500.4100, L502.0250, L506.1001, L500.4050 #### [facility] [address] [place], [address] Albumin/Globulin [Mass ratio] 1.4 {ratio} Normal 0.9-2.4 [facility] Comment on above: Performed By: #### L 501.9985, L500.4100, L502.0250, L506.1001, L500.4050 #### [facility] [address] [place], [address] ALK PHOS 73 U/L Normal 35-104 [facility] Comment on above: Performed By: #### L 501.9985, L500.4100, L502.0250, L506.1001, L500.4050 #### [facility] [address] [place], [address] ALT [Catalytic activity/Vol] 14 U/L Normal <=34 [facility] Comment on above: Performed By: #### L 501.9985, L500.4100, L502.0250, L506.1001, L500.4050 #### [facility] [address] [place], [address] AST [Catalytic activity/Vol] 19 U/L Normal <=31 [facility] Comment on above: Performed By: #### L 501.9985, L500.4100, L502.0250, L506.1001, L500.4050 #### [facility] [address] [place], [address] Bilirubin [Mass/Vol] 0.48 mg/dL Normal 0.00-1.30 [facility] Comment on above: Performed By: #### L 501.9985, L500.4100, L502.0250, L506.1001, L500.4050 #### [facility] [address] [place], [address] BUN/CRE 21.3 RATIO High 10-20 [facility] Comment on above: Performed By: #### L 501.9985, L500.4100, L502.0250, L506.1001, L500.4050 #### [facility] [address] [place], [address] Calcium [Mass/Vol] 9.3 mg/dL Normal 7.6-11.0 [facility] Comment on above: Performed By: #### L 501.9985, L500.4100, L502.0250, L506.1001, L500.4050 #### [facility] [address] [place], [address] Chloride [Moles/Vol] 103 mmol/L Normal 98-108 [facility] Comment on above: Performed By: #### L 501.9985, L500.4100, L502.0250, L506.1001, L500.4050 #### [facility] [address] [place], [address] CO2 [Moles/Vol] 22.3 mmol/L Normal 21.0-32.0 [facility] Comment on above: Performed By: #### L 501.9985, L500.4100, L502.0250, L506.1001, L500.4050 #### [facility] [address] [place], [address] Creatinine [Mass/Vol] 0.82 mg/dL Normal 0.70-1.20 [facility] Comment on above: Performed By: #### L 501.9985, L500.4100, L502.0250, L506.1001, L500.4050 #### [facility] [address] [place], [address] GAP 12 Normal 5-15 [facility] Comment on above: Performed By: #### L 501.9985, L500.4100, L502.0250, L506.1001, L500.4050 #### [facility] [address] [place], [address] GFR/1.73 sq M.predicted among non-blacks MDRD (S/P/Bld) [Vol rate/Area] 76 mL/min/{1.73_m2} Normal >60 [facility] Comment on above: Result Comment: mL/m in/1.73m2 CKD-EPI Creatinine Equation (2020) Performed By: #### L 501.9985, L500.4100, L502.0250, L506.1001, L500.4050 #### [facility] [address] [place], [address] Globulin (S) [Mass/Vol] 3.0 g/dL Normal 2.2-4.2 [facility] Comment on above: Performed By: #### L 501.9985, L500.4100, L502.0250, L506.1001, L500.4050 #### [facility] [address] [place], [address] Glucose [Mass/Vol] 92 mg/dL Normal 70-99 [facility] Comment on above: Performed By: #### L 501.9985, L500.4100, L502.0250, L506.1001, L500.4050 #### [facility] [address] [place], [address] Potassium [Moles/Vol] 3.9 mmol/L Normal 3.3-5.1 [facility] Comment on above: Performed By: #### L 501.9985, L500.4100, L502.0250, L506.1001, L500.4050 #### [facility] [address] [place], [address] Sodium [Moles/Vol] 137 mmol/L Normal 133-145 [facility] Comment on above: Performed By: #### L 501.9985, L500.4100, L502.0250, L506.1001, L500.4050 #### [facility] [address] [place], [address] T PROT 7.2 g/dL Normal 5.9-8.4 [facility] Comment on above: Performed By: #### L 501.9985, L500.4100, L502.0250, L506.1001, L500.4050 #### [facility] [address] [place], [address] Urea nitrogen [Mass/Vol] 18 mg/dL Normal 4-19 [facility] Comment on above: Performed By: #### L 501.9985, L500.4100, L502.0250, L506.1001, L500.4050 #### [facility] [address] [place], [address] Creatinine Unsp time (U) [Ma ss/Vol]Ordered By: Herlinda Lopez on 08-03-2024 Creatinine (U) [Mass/Vol] 51.80 mg/dL 28.00-217.0 0 [facility] GFR/1.73 sq M.predicted elaine g non-blacks MDRD (S/P/Bld) [Vol rate/Area]Ordered By: Hrelinda Lopez on 08-03-2024 Estimated GFR (MDRD) Non-Af Amer 76 >60 [facility] Comment on above: mL/min/1.73m2 CKD-EP I Creatinine Equation (2020) Hemoglobin A1con 08-03-2024 HbA1c (Bld) [Mass fraction] 6.2 % Normal <=5.6 [facility] Comment on above: Performed By: #### L 501.9985, L500.4100, L502.0250, L506.1001, L500.4050 #### [facility] [address] [place], [address] Hemoglobin A1c percentageOrd ered By: Herlinda Lopez on 08-03-2024 HbA1c (Bld) [Mass fraction] 6.2 % >5.7 [facility] L506.1001on 08-03-2024 Vitamin D 25-OH 71.1 ng/mL Normal 30-100 [facility] Comment on above: Result Comment: Rama min D Status Deficiency: <20 ng/mL (50nmol/L) Insufficiency: 20-30 ng/mL (50-75 nmol/L) Sufficiency: 30-100 ng/mL (75-250 nmol/L) Toxicity: >100 ng/mL (>250 nmol/L) Performed By: #### L 501.9985, L500.4100, L502.0250, L506.1001, L500.4050 #### [facility] [address] [place], [address] LDL calc ser/plasOrdered By: Herlinda Lopez on 08-03-2024 LDL Cholesterol, Calculated 113 mg/dL [facility] Comment on above: Fiutbixmja=560-318 m g/dL & Higher Mziy=133 mg/dL or greater Laboratory - Chemistry and C hemistry - challengeOrdered By: Herlinda Lopez on 08-03-2024 AST [Catalytic activity/Vol] 19 U/L <32 [facility] Lipid Profileon 08-03-2024 CHOL:HDL 2.57 Normal [facility] Comment on above: Performed By: #### L 501.9985, L500.4100, L502.0250, L506.1001, L500.4050 #### [facility] [address] [place], [address] Cholesterol [Mass/Vol] 217 mg/dL High <=200 [facility] Comment on above: Result Comment: Chol esterol level, Desirable <200 mg/dL Borderline high cholesterol 200-239 mg/dL High cholesterol >=240 mg/dL Recommendations of the NCEP Adult Treatment Panel for the following risk-cutoff thresholds for the [place] population. Performed By: #### L 501.9985, L500.4100, L502.0250, L506.1001, L500.4050 #### [facility] [address] [place], [address] Cholesterol in HDL [Mass/Vol] 85 mg/dL Normal [facility] Comment on above: Result Comment: Macy onal Cholesterol Education Program (NCEP) guidelines: <40 mg/dL: Low HDL-cholesterol (major risk factor for CHD) >= 60 mg/dL: High HDL-cholesterol (negative risk factor for CHD) HDL-cholesterol is affected by a number of factors, e.g. smoking, exercise, hormones, sex and age. Performed By: #### L 501.9985, L500.4100, L502.0250, L506.1001, L500.4050 #### [facility] [address] [place], [address] Cholesterol in LDL [Mass/Vol] 113 mg/dL Normal [facility] Comment on above: Result Comment: Bord uuixns=766-240 mg/dL Higher Rtsb=252 mg/dL or greater Performed By: #### L 501.9985, L500.4100, L502.0250, L506.1001, L500.4050 #### [facility] [address] [place], [address] Cholesterol in VLDL [Mass/Vol] 20 mg/dL Normal 5-40 [facility] Comment on above: Performed By: #### L 501.9985, L500.4100, L502.0250, L506.1001, L500.4050 #### [facility] [address] [place], [address] Triglyceride [Mass/Vol] 98 mg/dL Normal [facility] Comment on above: Result Comment: The drugs N-Acetylcysteine and Metamizole may falsely depress this assay. Normal range: <150 mg/dL Borderline High: 150-199 mg/dL High: 200-499 mg/dL Very High: >500 mg/dL Performed By: #### L 501.9985, L500.4100, L502.0250, L506.1001, L500.4050 #### [facility] [address] [place], [place], [address] Microalb:Creat Ratio,Random URon 08-03-2024 Creatinine [Mass/Vol] 51.80 mg/dL Normal 28.00- 217.0 0 [facility] Comment on above: Performed By: #### L 500.4100, L503.0106, L500.4050, L501.9985, L506.0200, L100.0100 #### [facility] [address] [place], [place], [address] Microalbumin/creat ratio urO rdered By: Herlinda Lopez on 08-03-2024 Urine Microalbumin/Creatinine Ratio AZP [facility] Comment on above: Test not performedPr evious reported result: UNABLE TO CALCULATE mg/g CREEdited by: JAYME on 08/03/24:1851 AMENDED REPORT 08/03/241851 MALB:CREAT previously reported as: UNABLE TO CALCULATE mg/g CRE Previous reported result: 23.0 mg/g CREEdited by: JAYME on 08/03/24:1851 AMENDED REPORT 08/03/241851 MALB:CREAT previously reported as: 23.0 mg/g CRE Potassium (Unsp spec) [Mass/ Vol]Ordered By: Herlinda Lopez on 08-03-2024 Potassium [Moles/Vol] 3.9 mmol/L 3.3-5.1 [facility] Screening total cholesterol/ high density lipoprotein (HDL) cholesterol ratioOrdered By: Herlinda Lopez on 08-03-2024 Cholesterol.total/Catarina sterol in HDL [Mass ratio] 2.57 {ratio} [facility] Serum creatinine measurement (mass/volume)Ordered By: Herlinda Lopez on 08-03-2024 Creatinine [Mass/Vol] 0.82 mg/dL 0.70-1.20 [facility] Serum globulin measurementOr dered By: Herlinda Lopez on 08-03-2024 Globulin (S) [Mass/Vol] 3.0 g/dL 2.2-4.2 [facility] Serum glucose measurement (m ass/volume)Ordered By: Herlinda Lopez on 08-03-2024 Glucose [Mass/Vol] 92 mg/dL 70-99 [facility] Serum or plasma alanine martinez otransferase (ALT) measurementOrdered By: Herlinda Lopez on 08-03-2024 ALT [Catalytic activity/Vol] 14 U/L <35 [facility] Serum or plasma albumin delores urement (mass/volume)Ordered By: Herlinda Lopez on 08-03-2024 Albumin [Mass/Vol] 4.2 g/dL 3.4-4.8 [facility] Serum or plasma albumin/glob ulin mass ratioOrdered By: Herlinda Lopez on 08-03-2024 Albumin/Globulin [Mass ratio] 1.4 {ratio} 0.9-2.4 [facility] Serum or plasma alkaline aubrey sphatase measurementOrdered By: Herlinda Lopez on 08-03-2024 ALP [Catalytic activity/Vol] 73 U/L 35-104 [facility] Serum or plasma calcium delores urement (mass/volume)Ordered By: Herlinda Lopez on 08-03-2024 Calcium [Mass/Vol] 9.3 mg/dL 7.6-11.0 [facility] Serum or plasma cholesterol in HDL measurement (mass/volume)Ordered By: Herlinda Lopez on 08-03-2024 Cholesterol in HDL [Mass/Vol] 85 mg/dL >40 [facility] Comment on above: National Cholesterol Education Program (NCEP) guidelines:<40 mg/dL: Low HDL-cholesterol (major risk factor for CHD)>= 60 mg/dL: High HDL-cholesterol (negative risk factor for CHD)HDL-cholesterol is affected by a number of factors, e.g. smoking, exercise, hormones, sex and age. Serum or plasma cholesterol measurement (mass/volume)Ordered By: Herlinda Lopez on 08-03-2024 Cholesterol [Mass/Vol] 217 mg/dL High <201 [facility] Comment on above: Cholesterol level, D esirable <200 mg/dLBorderline high cholesterol 200-239 mg/dLHigh cholesterol >=240 mg/dLRecommendations of the NCEP Adult Treatment Panel for the following risk-cutoff thresholds for the [place] population. Serum or plasma urea nitroge n measurement (mass/volume)Ordered By: Herlinda Lopez on 08-03-2024 Urea nitrogen [Mass/Vol] 18 mg/dL 4- [facility] Sodium levelOrdered By: Nata Lopez on 08-03-2024 Sodium [Moles/Vol] 137 mmol/L 133-145 [facility] Total proteinOrdered By: Fuad Lopez on 08-03-2024 Protein [Mass/Vol] 7.2 g/dL 5.9-8.4 [facility] Triglycerides measurementOrd ered By: Herlinda Lopez on 08-03-2024 Triglyceride [Mass/Vol] 98 mg/dL <199 [facility] Comment on above: The drugs N-Acetylcy steine and Metamizole may falsely depress this assay. Normal range: <150 mg/dLBorderline High: 150-199 mg/dLHigh: 200-499 mg/dLVery High: >500 mg/dL Vitamin D, 25-hydroxyOrdered By: Herlinda Lopez on 08-03-2024 Vitamin D 25-Hydroxy 71.1 ng/mL 30-100 [facility] Comment on above: Vitamin D StatusDefi ciency: <20 ng/mL (50nmol/L)Insufficiency: 20-30 ng/mL (50-75 nmol/L)Sufficiency: 30-100 ng/mL (75-250 nmol/L)Toxicity: >100 ng/mL (>250 nmol/L) Absolute lymphocyte countOrd ered By: Tyler Donahue on 04-30-2023 Lymphocytes Auto (Unsp spec) [#/Vol] 2.90 10*3/uL 0.83-4.51 [facility] Basophil percentageOrdered B y: Tyler Donahue on 04-30-2023 Basophils/100 WBC (Bld) 0.7 % 0-1 [facility] Bilirubin [Mass/Vol] 0.60 mg/dL 0.20-1.00 [facility] Comment on above: For patients on eltr ombopag therapy, use of Dimension Crowder TBIL is not recommended. Chloride [Moles/Vol] 109 mmol/L 98-107 [facility] Eosinophils/100 WBC (Bld) 2.3 % 0-5 [facility] Glucose [Mass/Vol] 90 mg/dL 74-106 [facility] Neutrophils (Bld) [#/Vol] 3.3 10*3/uL 2.0-7.7 [facility] Neutrophils/100 WBC (Bld) 47.7 % 47-70 [facility] Potassium [Moles/Vol] 4.2 mmol/L 3.5-5.1 [facility] Protein [Mass/Vol] 7.4 g/dL 6.4-8.2 [facility] Sodium [Moles/Vol] 138 mmol/L 136-145 [facility] WBC (Bld) [#/Vol] 6.9 10*3/uL 4.4-11.0 [facility] Blood erythrocytes count (nu mber/volume)Ordered By: Tyler Donahue on 04-30-2023 RBC (Bld) [#/Vol] 4.78 10*6/uL 4.2-5.4 [facility] Blood hemoglobin measurement (mass/volume)Ordered By: Tyler Donahue on 04-30-2023 Hemoglobin (Bld) [Mass/Vol] 13.5 g/dL 12.0-15.0 [facility] Blood lymphocytes/100 leukoc ytesOrdered By: Tyler Donahue on 04-30-2023 Lymphocytes/100 WBC (Bld) 42.3 % 19-41 [facility] Blood monocytes/100 leukocyt esOrdered By: Tyler Donahue on 04-30-2023 Monocytes/100 WBC (Bld) 6.7 % 0-10 [facility] Blood platelet mean volumeOr dered By: Tyler Donahue on 04-30-2023 Platelet mean volume (Bld) [Entitic vol] 10.5 fL 6.2-12.0 [facility] Determination of erythrocyte mean corpuscular volume (MCV)Ordered By: Tyler Donahue on 04-30-2023 MCV (RBC) [Entitic vol] 89.7 fL 81-99 [facility] Hematocrit Auto (Bld) [Volum e fraction]Ordered By: Tyler Donahue on 04-30-2023 Hematocrit (Bld) [Volume fraction] 42.9 % 37-47 [facility] Laboratory - Chemistry and C hemistry - challengeOrdered By: Tyler Donahue on 04-30-2023 ALP [Catalytic activity/Vol] 75 U/L 45-117 [facility] ALT [Catalytic activity/Vol] 18 U/L 13-56 [facility] CO2 [Moles/Vol] 26.0 mmol/L 21.0-32.0 [facility] Globulin (S) [Mass/Vol] 3.7 g/dL 2.2-4.2 [facility] Urea nitrogen/Creatinine [Mass ratio] 21.6 mg/mg 10-20 [facility] Laboratory - Hematology and Cell countsOrdered By: Tyler Donahue on 04-30-2023 Erythrocyte distribution width (RBC) [Entitic vol] 47.0 fL 35.1-43.9 [facility] Erythrocyte distribution width (RBC) [Ratio] 14.4 % 11.6-14.6 [facility] Immature granulocytes/100 WBC (Bld) 0.300 % 0.0-0.9 [facility] Comment on above: IG% - Immature Granu locytes (promyelocytes, myelocytes and metamyelocytes) > 1% indicates that a LEFT SHIFT is Present. MCH (RBC) [Entitic mass] 28.2 pg 27.0-32.0 [facility] Nucleated RBC/100 WBC (Bld) [Ratio] 0 % 0-5 [facility] MCHC Auto (RBC) [Mass/Vol]Or dered By: Tyler Donahue on 04-30-2023 MCHC (RBC) [Mass/Vol] 31.5 g/dL 32-36 [facility] No Panel InformationOrdered By: Tyler Donahue on 04-30-2023 Estimated GFR (MDRD) Amer 87 mL/min >60 [facility] Comment on above: GFR Calc Estimated GFR (MDRD) Non-Af Amer 72 mL/min >60 [facility] Comment on above: Non- GFR Calc Platelets bldOrdered By: Tc Donahue on 04-30-2023 Platelets (Bld) [#/Vol] 387 10*3/uL 150-450 [facility] Serum or plasma albumin delores urement (mass/volume)Ordered By: Tyler Donahue on 04-30-2023 Albumin [Mass/Vol] 3.7 g/dL 3.2-5.0 [facility] Serum or plasma albumin/glob ulin mass ratioOrdered By: Tyler Donahue on 04-30-2023 Albumin/Globulin [Mass ratio] 1.0 {ratio} 0.9-2.4 [facility] Serum or plasma calcium delores urement (mass/volume)Ordered By: Tyler Donahue on 04-30-2023 Calcium [Mass/Vol] 9.4 mg/dL 8.5-10.1 [facility] Serum or plasma creatinine m easurement (mass/volume)Ordered By: Tyler Donahue on 04-30-2023 Creatinine [Mass/Vol] 0.83 mg/dL 0.55-1.02 [facility] Comment on above: The validity of the calculated GFR & GFRAA in patients over 70 years has not been determined. Clinical correlation is essential. Serum or plasma urea nitroge n measurement (mass/volume)Ordered By: Tyler Donahue on 04-30-2023 Urea nitrogen [Mass/Vol] 18 mg/dL 7-18 [facility] Thin prep Papanicolaou smear with manual screeningOrdered By: Tyler Donahue on 04-30-2023 Thin prep Papanicolaou smear with manual screening 16 U/L 15-37 [facility] Thin prep Papanicolaou smear with manual screening 3 5-15 [facility] Blood Glucose , Office ([phone])Ordered By: Mary Hernandez on 01-13-2023 Glucose Glucometer (BldC) [Moles/Vol] 98 1 Normal [facility] Work Phone: HgA1C , Office ([phone])Ordere d By: Mary Hernandez on 01-13-2023 HbA1c (Bld) [Mass fraction] 5.8 % Normal 4.6 - 7.1 [facility] Work Phone: Basophil percentageOrdered B y: Herlinda Lopez on 01-09-2023 Cholesterol [Mass/Vol] 217 mg/dL <200 [facility] Comment on above: <200 mg/dL Desirable 200-240 mg/dL Borderline >240 mg/dL High Risk Triglyceride [Mass/Vol] 179 mg/dL <199 [facility] Comment on above: The drugs N-Acetylcy steine and Metamizole may falsely depress this assay.Serum Triglycerides Reference Interval Normal <150 mg/dL Borderline high 150 - 199 mg/dL High 200 - 499 mg/dL Very High > or = 500 mg/dL Serum or plasma cholesterol in HDL measurement (mass/volume)Ordered By: Herlinda Lopez on 01-09-2023 Cholesterol in HDL [Mass/Vol] 61 mg/dL >40 [facility] Comment on above: The drugs N-Acetylcy steine and Metamizole may falsely depress this assay. Reference Range HDL <40 mg/dL Low HDL Cholesterol HDL >or= 60 mg/dL High HDL Cholesterol Serum or plasma cholesterol in VLDL measurement (mass/volume)Ordered By: Herlinda Lopez on 01-09-2023 Cholesterol in VLDL [Mass/Vol] 36 mg/dL 5-40 [facility] Serum or plasma low density lipoprotein (LDL) cholesterol measurement (mass/volume)Ordered By: Herlinda Lopez on 01-09-2023 Cholesterol in LDL [Mass/Vol] 120 mg/dL 0-130 [facility] Laboratory - Microbiology an d Antimicrobial susceptibilityon 01-01-2023 SARS-CoV-2 (COVID-19) RNA CORTEZ+probe Ql (Unsp spec) Detected [facility] No Panel Informationon 01-01 POC Nasal Swab Influenza A,B Not detected [facility] POC Nasal Swab RSV Not detected [facility] Glucose Glucometer (BldC) [M ass/Vol]Ordered By: Dr. Melissa on 09-24-2022 Glucose [Mass/Vol] 110 mg/dL 74-106 [facility] Comment on above: MANAGEMENT OF PATIEN T CARE PER NURSING PROTOCOL No Panel InformationOrdered By: Dr. Melissa on 09-10-2022 Nasal Screen MRSA/MSSA [facility] Absolute lymphocyte countOrd ered By: Herlinda Lopez on 09-09-2022 Lymphocytes Auto (Unsp spec) [#/Vol] 3.58 10*3/uL 0.83-4.51 [facility] Basophil percentageOrdered B y: Herlinda Lopez on 09-09-2022 Basophils/100 WBC (Bld) 0.7 % 0-1 [facility] Bilirubin [Mass/Vol] 0.40 mg/dL 0.20-1.00 [facility] Comment on above: For patients on eltr ombopag therapy, use of Dimension Crowder TBIL is not recommended. Chloride [Moles/Vol] 109 mmol/L 98-107 [facility] Eosinophils/100 WBC (Bld) 2.4 % 0-5 [facility] Glucose [Mass/Vol] 100 mg/dL 74-106 [facility] Comment on above: Fasting Glucose resu lt from 100 to 125 mg/dL suggests IMPAIRED HOMEOSTASIS per A.D.A. criteria. Neutrophils (Bld) [#/Vol] 4.2 10*3/uL 2.0-7.7 [facility] Neutrophils/100 WBC (Bld) 48.6 % 47-70 [facility] Potassium [Moles/Vol] 3.9 mmol/L 3.5-5.1 [facility] Protein [Mass/Vol] 7.6 g/dL 6.4-8.2 [facility] Sodium [Moles/Vol] 139 mmol/L 136-145 [facility] WBC (Bld) [#/Vol] 8.5 10*3/uL 4.4-11.0 [facility] Blood erythrocytes count (nu mber/volume)Ordered By: Herlinda Lopez on 09-09-2022 RBC (Bld) [#/Vol] 4.85 10*6/uL 4.2-5.4 [facility] Blood hemoglobin measurement (mass/volume)Ordered By: Herlinda Lopez on 09-09-2022 Hemoglobin (Bld) [Mass/Vol] 14.1 g/dL 12.0-15.0 [facility] Blood lymphocytes/100 leukoc ytesOrdered By: Herlinda Lopez on 09-09-2022 Lymphocytes/100 WBC (Bld) 42.1 % 19-41 [facility] Blood monocytes/100 leukocyt esOrdered By: Herlinda Lopez on 09-09-2022 Monocytes/100 WBC (Bld) 5.8 % 0-10 [facility] Blood platelet mean volumeOr dered By: Herlinda Lopez on 09-09-2022 Platelet mean volume (Bld) [Entitic vol] 11.4 fL 6.2-12.0 [facility] Determination of erythrocyte mean corpuscular volume (MCV)Ordered By: Herlinda Lopez on 09-09-2022 MCV (RBC) [Entitic vol] 91.3 fL 81-99 [facility] Hematocrit Auto (Bld) [Volum e fraction]Ordered By: Herlinda Lopez on 09-09-2022 Hematocrit (Bld) [Volume fraction] 44.3 % 37-47 [facility] Laboratory - Chemistry and C hemistry - challengeOrdered By: Dr. Park on 09-09-2022 Magnesium [Mass/Vol] 2.1 mg/dL 1.6-2.6 [facility] Laboratory - Chemistry and C hemistry - challengeOrdered By: Herlinda Lopez on 09-09-2022 ALP [Catalytic activity/Vol] 80 U/L 45-117 [facility] ALT [Catalytic activity/Vol] 24 U/L 13-56 [facility] CO2 [Moles/Vol] 26.0 mmol/L 21.0-32.0 [facility] Globulin (S) [Mass/Vol] 3.8 g/dL 2.2-4.2 [facility] Urea nitrogen/Creatinine [Mass ratio] 16.6 mg/mg 10-20 [facility] Laboratory - Hematology and Cell countsOrdered By: Herlinda Lopez on 09-09-2022 Erythrocyte distribution width (RBC) [Entitic vol] 47.0 fL 35.1-43.9 [facility] Erythrocyte distribution width (RBC) [Ratio] 13.9 % 11.6-14.6 [facility] Immature granulocytes/100 WBC (Bld) 0.400 % 0.0-0.9 [facility] Comment on above: IG% - Immature Granu locytes (promyelocytes, myelocytes and metamyelocytes) > 1% indicates that a LEFT SHIFT is Present. MCH (RBC) [Entitic mass] 29.1 pg 27.0-32.0 [facility] Nucleated RBC/100 WBC (Bld) [Ratio] 0 % 0-5 [facility] MCHC Auto (RBC) [Mass/Vol]Or dered By: Herlinda Lopez on 09-09-2022 MCHC (RBC) [Mass/Vol] 31.8 g/dL 32-36 [facility] No Panel InformationOrdered By: Quinn Melissa on 09-09-2022 Nasal Screen MRSA/MSSA [facility] No Panel InformationOrdered By: Herlinda Lopez on 09-09-2022 Estimated GFR (MDRD) Amer 86 mL/min >60 [facility] Comment on above: GFR Calc Estimated GFR (MDRD) Non-Af Amer 71 mL/min >60 [facility] Comment on above: Non- GFR Calc Platelets bldOrdered By: Fuad Lopez on 09-09-2022 Platelets (Bld) [#/Vol] 377 10*3/uL 150-450 [facility] Serum or plasma albumin delores urement (mass/volume)Ordered By: Herlinda Lopez on 09-09-2022 Albumin [Mass/Vol] 3.8 g/dL 3.2-5.0 [facility] Serum or plasma albumin/glob ulin mass ratioOrdered By: Herlinda Lopez on 09-09-2022 Albumin/Globulin [Mass ratio] 1.0 {ratio} 0.9-2.4 [facility] Serum or plasma calcium delores urement (mass/volume)Ordered By: Herlinda Lopez on 09-09-2022 Calcium [Mass/Vol] 9.3 mg/dL 8.5-10.1 [facility] Serum or plasma creatinine m easurement (mass/volume)Ordered By: Herlinda Lopez on 09-09-2022 Creatinine [Mass/Vol] 0.84 mg/dL 0.55-1.02 [facility] Comment on above: The validity of the calculated GFR & GFRAA in patients over 70 years has not been determined. Clinical correlation is essential. Serum or plasma urea nitroge n measurement (mass/volume)Ordered By: Herlinda Lopez on 09-09-2022 Urea nitrogen [Mass/Vol] 14 mg/dL 7-18 [facility] Thin prep Papanicolaou smear with manual screeningOrdered By: Herlinda Lopez on 09-09-2022 Thin prep Papanicolaou smear with manual screening 18 U/L 15-37 [facility] Thin prep Papanicolaou smear with manual screening 4 5-15 [facility] Urinalysis, Office ([phone])Or dered By: Zaida Herbert on 09-03-2022 Bilirubin Ql (U) Negative Normal [facility] Work Phone: Glucose Test strip (U) [Mass/Vol] Negative Normal [facility]; [facility] Work Phone: Hemoglobin Ql (U) Negative Normal [facility]; [facility] Work Phone: Ketones Ql (U) Negative Normal [facility]; [facility] Work Phone: Leukocyte esterase Test strip Ql (U) Negative Normal [facility]; [facility] Work Phone: Nitrite Ql (U) Negative Normal [facility] Work Phone: pH (U) 6.0 [pH] Normal [facility]; [facility] Work Phone: Protein Ql (U) Negative Normal [facility] Work Phone: Specific gravity (U) [Rel density] 1.010 1 Normal [facility]; [facility] Work Phone: Urobilinogen (24H U) [Mass/Time] Normal Normal [facility]; [facility] Work Phone: Basophil percentageOrdered B y: Herlinda Lopez on 08-27-2022 Cholesterol [Mass/Vol] 223 mg/dL <200 [facility] Comment on above: <200 mg/dL Desirable 200-240 mg/dL Borderline >240 mg/dL High Risk Triglyceride [Mass/Vol] 78 mg/dL <199 [facility] Comment on above: The drugs N-Acetylcy steine and Metamizole may falsely depress this assay.Serum Triglycerides Reference Interval Normal <150 mg/dL Borderline high 150 - 199 mg/dL High 200 - 499 mg/dL Very High > or = 500 mg/dL Erythrocyte sedimentation ra teOrdered By: Herlinda Lopez on 08-27-2022 ESR (Bld) [Velocity] 7 mm/h 0-30 [facility] No Panel InformationOrdered By: Herlinda Lopez on 08-27-2022 C-Reactive Protein High Sensitivity 2.23 mg/L <3.00 [facility] Comment on above: Low Relative Risk of CVD <1.0 mg/L Average Relative Risk of CVD 1.0 - 3.0 mg/L High Relative Risk of CVD >3.0 mg/L Serum or plasma cholesterol in HDL measurement (mass/volume)Ordered By: Herlinda Lopez on 08-27-2022 Cholesterol in HDL [Mass/Vol] 85 mg/dL >40 [facility] Comment on above: The drugs N-Acetylcy steine and Metamizole may falsely depress this assay. Reference Range HDL <40 mg/dL Low HDL Cholesterol HDL >or= 60 mg/dL High HDL Cholesterol Serum or plasma cholesterol in VLDL measurement (mass/volume)Ordered By: Herlinda Lopez on 08-27-2022 Cholesterol in VLDL [Mass/Vol] 16 mg/dL 5-40 [facility] Serum or plasma low density lipoprotein (LDL) cholesterol measurement (mass/volume)Ordered By: Herlinda Lopez on 08-27-2022 Cholesterol in LDL [Mass/Vol] 122 mg/dL 0-130 [facility] Whole blood hemoglobin A1c/t otal hemoglobin ratio (mass fraction)Ordered By: Herlinda Lopez on 08-27-2022 HbA1c (Bld) [Mass fraction] 5.9 % 3.8-5.6 [facility] Comment on above: Normal < 5.7 % Predi abetic 5.7 - 6.4 % Diabetic >or= 6.5 % Please note range changes. Basophil percentageOrdered B y: Herlinda Lopez on 06-10-2022 Basophil percentage 139 mg/dL 0-149 [facility] Bilirubin [Mass/Vol] 0.60 mg/dL 0.20-1.00 [facility] Comment on above: For patients on eltr ombopag therapy, use of Dimension Crowder TBIL is not recommended. Chloride [Moles/Vol] 106 mmol/L 98-107 [facility] Cholesterol [Mass/Vol] 343 mg/dL <200 [facility] Comment on above: <200 mg/dL Desirable 200-240 mg/dL Borderline >240 mg/dL High Risk Glucose [Mass/Vol] 100 mg/dL 74-106 [facility] Comment on above: Fasting Glucose resu lt from 100 to 125 mg/dL suggests IMPAIRED HOMEOSTASIS per A.D.A. criteria. Potassium [Moles/Vol] 3.9 mmol/L 3.5-5.1 [facility] Protein [Mass/Vol] 7.7 g/dL 6.4-8.2 [facility] Sodium [Moles/Vol] 139 mmol/L 136-145 [facility] Triglyceride [Mass/Vol] 152 mg/dL <199 [facility] Comment on above: The drugs N-Acetylcy steine and Metamizole may falsely depress this assay.Serum Triglycerides Reference Interval Normal <150 mg/dL Borderline high 150 - 199 mg/dL High 200 - 499 mg/dL Very High > or = 500 mg/dL Laboratory - Chemistry and C hemistry - challengeOrdered By: Herlinda Lopez on 06-10-2022 ALP [Catalytic activity/Vol] 77 U/L 45-117 [facility] ALT [Catalytic activity/Vol] 23 U/L 13-56 [facility] CO2 [Moles/Vol] 27.0 mmol/L 21.0-32.0 [facility] Cobalamin (Vitamin B12) [Mass/Vol] 541 pg/mL 211-911 [facility] Globulin (S) [Mass/Vol] 3.8 g/dL 2.2-4.2 [facility] Urea nitrogen/Creatinine [Mass ratio] 19.2 mg/mg 10-20 [facility] No Panel InformationOrdered By: Herlinda Lopez on 06-10-2022 Estimated GFR (MDRD) Amer 71 mL/min >60 [facility] Comment on above: GFR Calc Estimated GFR (MDRD) Non-Af Amer 59 mL/min >60 [facility] Comment on above: Non- GFR Calc Insulin Resistance/Diabetes Risk <25 <=45 [facility] Comment on above: INSULIN RESISTANCE Adam BETANCOURT <--Insulin Sensitive Insulin Resistant--> Percentile in Reference PopulationInsulin Resistance ScoreLP-IR Score Low 25th 50th 75th High <27 27 45 63 >63LP-IR Score is inaccurate if patient is non-fasting.The LP-IR score is a laboratory developed index that hasbeen associated with insulin resistance and diabetes riskand should be used as one component of a physician'sclinical assessment.Performed at: [facility] - [address] [id number] Director: Jos Mckeon MD, Phone: [phone] LDL Cholesterol Particle Number [id number] nmol/L <1000 [facility] Comment on above: Low < 1000 Moderate 1000 - 1299 Borderline-High 1300 - 1599 High 1600 - 2000 Very High > 2000 LDL Cholesterol Particle Size 21.8 nm >20.5 [facility] Comment on above: INTERPRETATIVE INFORMATION PARTICLE CONCENTRATION AND SIZE <--Lower CVD Risk Higher CVD Risk--> LDL AND HDL PARTICLES Percentile in Reference Population HDL-P (total) High 75th 50th 25th Low >34.9 34.9 30.5 26.7 <26.7 Small LDL-P Low 25th 50th 75th High <117 [phone] >839 LDL Size <-Large (Pattern A)-> <-Small (Pattern B)-> 23.0 20.6 20.5 19.0 Smal l LDL-P and LDL Size are associated with CVD risk, butnot after LDL-P is taken into account. LDL Cholesterol, Calculated 237 mg/dL 0-99 [facility] Comment on above: Optimal < 100 Above optimal 100 - 129 Borderline 130 - 159 High 160 - 189 Very high > 189 Small LDL Particle Number [id number] nmol/L <=527 [facility] Vitamin D 25-Hydroxy 31.1 ng/mL [facility] Comment on above: Vitamin D 25(OH) Sta tus Range Deficiency <20 ng/mL (50nmol/L) Insufficiency 20 - 30 ng/mL (50 - 75 nmol/L) Sufficiency 30 - 100 ng/mL (75 - 250 nmol/L) Toxicity >100 ng/mL (>250 nmol/L) Serum or plasma albumin delores urement (mass/volume)Ordered By: Herlinda Lopez on 06-10-2022 Albumin [Mass/Vol] 3.9 g/dL 3.2-5.0 [facility] Serum or plasma albumin/glob ulin mass ratioOrdered By: Herlinda Lopez on 06-10-2022 Albumin/Globulin [Mass ratio] 1.0 {ratio} 0.9-2.4 [facility] Serum or plasma calcium delores urement (mass/volume)Ordered By: Herlinda Lopez on 06-10-2022 Calcium [Mass/Vol] 9.3 mg/dL 8.5-10.1 [facility] Serum or plasma cholesterol in HDL measurement (mass/volume)Ordered By: Herlinda Lopez on 06-10-2022 Cholesterol in HDL [Mass/Vol] 77 mg/dL >39 [facility] Serum or plasma cholesterol in VLDL measurement (mass/volume)Ordered By: Herlinda Lopez on 06-10-2022 Cholesterol in VLDL [Mass/Vol] 30 mg/dL 5-40 [facility] Serum or plasma cholesterol measurement (mass/volume)Ordered By: Herlinda Lopez on 06-10-2022 Cholesterol [Mass/Vol] 339 mg/dL 100-199 [facility] Serum or plasma creatinine m easurement (mass/volume)Ordered By: Herlinda Lopez on 06-10-2022 Creatinine [Mass/Vol] 0.99 mg/dL 0.55-1.02 [facility] Comment on above: The validity of the calculated GFR & GFRAA in patients over 70 years has not been determined. Clinical correlation is essential. Serum or plasma folate measu rement (mass/volume)Ordered By: Herlinda Lopez on 06-10-2022 Folate [Mass/Vol] 15.10 ng/mL 3.1-55.4 [facility] Serum or plasma low density lipoprotein (LDL) cholesterol measurement (mass/volume)Ordered By: Herlinda Lopez on 06-10-2022 Cholesterol in LDL [Mass/Vol] 238 mg/dL 0-130 [facility] Serum or plasma urea nitroge n measurement (mass/volume)Ordered By: Herlinda Lopez on 06-10-2022 Urea nitrogen [Mass/Vol] 19 mg/dL 7-18 [facility] Thin prep Papanicolaou smear with manual screeningOrdered By: Herlinda Lopez on 06-10-2022 Thin prep Papanicolaou smear with manual screening 15 U/L 15-37 [facility] Thin prep Papanicolaou smear with manual screening 6 5-15 [facility] Thin prep Papanicolaou smear with manual screening 38.7 umol/L >=30.5 [facility] Basophil percentageOrdered B y: Dr. Donahue on 05-14-2022 Chloride [Moles/Vol] 108 mmol/L 98-107 [facility] Glucose [Mass/Vol] 101 mg/dL 74-106 [facility] Comment on above: Fasting Glucose resu lt from 100 to 125 mg/dL suggests IMPAIRED HOMEOSTASIS per A.D.A. criteria. Potassium [Moles/Vol] 4.0 mmol/L 3.5-5.1 [facility] Comment on above: Slight Hemolysis, Re sult may be falsely increased. Sodium [Moles/Vol] 143 mmol/L 136-145 [facility] WBC (Bld) [#/Vol] 8.8 10*3/uL 4.4-11.0 [facility] Blood erythrocytes count (nu mber/volume)Ordered By: Dr. Donahue on 05-14-2022 RBC (Bld) [#/Vol] 4.78 10*6/uL 4.2-5.4 [facility] Blood hemoglobin measurement (mass/volume)Ordered By: Dr. Donahue on 05-14-2022 Hemoglobin (Bld) [Mass/Vol] 14.0 g/dL 12.0-15.0 [facility] Blood platelet mean volumeOr dered By: Dr. Donahue on 05-14-2022 Platelet mean volume (Bld) [Entitic vol] 11.4 fL 6.2-12.0 [facility] Determination of erythrocyte mean corpuscular volume (MCV)Ordered By: Dr. Donahue on 05-14-2022 MCV (RBC) [Entitic vol] 91.0 fL 81-99 [facility] Hematocrit Auto (Bld) [Volum e fraction]Ordered By: Dr. Donahue on 05-14-2022 Hematocrit (Bld) [Volume fraction] 43.5 % 37-47 [facility] Laboratory - Chemistry and C hemistry - challengeOrdered By: Dr. Donahue on 05-14-2022 CO2 [Moles/Vol] 27.0 mmol/L 21.0-32.0 [facility] Urea nitrogen/Creatinine [Mass ratio] 16.7 mg/mg 10-20 [facility] Laboratory - Hematology and Cell countsOrdered By: Dr. Donahue on 05-14-2022 Erythrocyte distribution width (RBC) [Entitic vol] 48.0 fL 35.1-43.9 [facility] Erythrocyte distribution width (RBC) [Ratio] 14.4 % 11.6-14.6 [facility] MCH (RBC) [Entitic mass] 29.3 pg 27.0-32.0 [facility] MCHC Auto (RBC) [Mass/Vol]Or dered By: Dr. Donahue on 05-14-2022 MCHC (RBC) [Mass/Vol] 32.2 g/dL 32-36 [facility] No Panel InformationOrdered By: Dr. Donahue on 05-14-2022 Estimated GFR (MDRD) Amer 74 mL/min >60 [facility] Comment on above: GFR Calc Estimated GFR (MDRD) Non-Af Amer 61 mL/min >60 [facility] Comment on above: Non- GFR Calc Platelets bldOrdered By: Dr. Donahue on 05-14-2022 Platelets (Bld) [#/Vol] 381 10*3/uL 150-450 [facility] Serum or plasma calcium delores urement (mass/volume)Ordered By: Dr. Donahue on 05-14-2022 Calcium [Mass/Vol] 9.2 mg/dL 8.5-10.1 [facility] Serum or plasma creatinine m easurement (mass/volume)Ordered By: Dr. Donahue on 05-14-2022 Creatinine [Mass/Vol] 0.96 mg/dL 0.55-1.02 [facility] Comment on above: The validity of the calculated GFR & GFRAA in patients over 70 years has not been determined. Clinical correlation is essential. Serum or plasma urea nitroge n measurement (mass/volume)Ordered By: Dr. Donahue on 05-14-2022 Urea nitrogen [Mass/Vol] 16 mg/dL 7-18 [facility] Thin prep Papanicolaou smear with manual screeningOrdered By: Dr. Donahue on 05-14-2022 Thin prep Papanicolaou smear with manual screening 8 5-15 [facility] HEPATITIS C ANTIBODY ([id number]) Ordered By: Director Fundraising on 07-25-2020 HCV Ab Signal/Cutoff IA [Rel units/Vol] {ratio} Normal 0.0-0.9 [facility]; [facility] Work Phone: Comment on above: Negative: < 0.8 Inde terminate: 0.8 - 0.9 Positive: > 0.9 . The CDC recommends that a positive HCV antibody result be followed up with a HCV Nucleic Acid Amplification test (339011). PATIENT NOT FASTINGP ERFORMED BY: [email or web address] [facility] [id number] HCV Ab Signal/Cutoff IA [Rel units/Vol] {ratio} Normal 0.0-0.9 [facility]; [facility] Work Phone: Comment on above: Negative: < 0.8 Inde terminate: 0.8 - 0.9 Positive: > 0.9 . The CDC recommends that a positive HCV antibody result be followed up with a HCV Nucleic Acid Amplification test (699342). PATIENT NOT FASTINGP ERFORMED BY: [email or web address] [facility] [id number] Final Surgical Pathology Rep quique 07-26-2019 Final Surgical Pathology Report . Pathology Reports Accession: Collected Date/Time: Received Date/Time: Pathologist: [id number] 07/25/2019 10:01 EDT 07/25/2019 14:25 EDT PATIENCE NOYOLA MD Final Surgical Pathology Report DIAGNOSIS: A) SIGMOID COLON, BIOPSY @ 30 CM - POLYPOID COLONIC MUCOSAL FRAGMENT. B) COLON, POLYP @ 25 CM - INFLAMMATORY POLYP. COMMENT: [facility] [id number] CLINICAL INFORMATION: Procedure: COLONOSCOPY WITH BIOPSIES Preoperative diagnosis: SCREENING Postoperative diagnosis: SAME SPECIMEN: A SIGMOID COLON BIOPSY AT 30 CM - ADENOMA VS COLITIS - THICKENED AREA B COLON POLYP AT 25 CM. GROSS DESCRIPTION: A. Submitted in formalin consist of 4 irregular whitish-pink tissue fragments together measuring 0.4 x 0.3 x0.3 cm. TS-1 B. Submitted in formalin is an ovoid whitish- pink tissue fragment measuring 0.3cm greatest dimension. TS-1 dictated by Rose Mary Noyola M.D. Dictated by PATIENCE NOYOLA MICROSCOPIC DESCRIPTION: Slides reviewed. Electronically Signed by Pathology Report verified by [facility] Electronically signed by PATIENCE NOYOLA Sign out Date: 07/26/2019 15:00 Performing Lab: [facility], [address] [place] [address] ([place] Comment on above: Performed By: #### S PFR #### [place] [id number] Nicotine Urine Drug Screenon 02-05-2018 COT DRG SCREEN Negative Normal [facility] Internal Medicine Work Phone: Comment on above: Cotinine is the firs t-stage metabolite of Nicotine. TO BE CONFIRMED Normal [facility] Internal Medicine Work Phone: Comment on above: CONFIRMATORY TESTING FOR ALL POSITIVE URINE DRUG SCREENRESULTS WILL ONLY BE SENT OUT UPON PHYSICIAN ORDER.The results of Urine Drug Screen methods provide onlypreliminary analytical test results. A more specificalternate chemical method must be used in order to obtain aconfirmed analytical result. Gas chromatography/massspectrometery (GC/MS) is the preferred confirmatory method.Clinical consideration and professional judgement should beapplied to any drug of abuse test result, particularly whenpreliminary positive results are used. Nicotine Urine Drug Screen Normal [facility] Work Phone: Comment on above: CONFIRMATORY TESTING FOR ALL POSITIVE URINE DRUG SCREENRESULTS WILL ONLY BE SENT OUT UPON PHYSICIAN ORDER.The results of Urine Drug Screen methods provide onlypreliminary analytical test results. A more specificalternate chemical method must be used in order to obtain aconfirmed analytical result. Gas chromatography/massspectrometery (GC/MS) is the preferred confirmatory method.Clinical consideration and professional judgement should beapplied to any drug of abuse test result, particularly whenpreliminary positive results are used. [facility] [address] [place], [place], [id number] Nicotine Urine Drug Screen Negative Normal [facility] Work Phone: Comment on above: Cotinine is the firs t-stage metabolite of Nicotine. [facility] [address] [place], [address] Urinalysis, Completeon 02-05 Protein mass conc (U) Negative Normal Com prehensive Internal Medicine Work Phone: Comment on above: How was Urine Obtain ed? [facility] [address] [place], [place], [id number] RBC #/vol (U) 0 SEEN Normal 0-5 Comprehensi ve Internal Medicine Work Phone: Comment on above: How was Urine Obtain ed? [facility] [address] [place], [place], [id number] RBC Test strip #/vol (U) 0 SEEN Normal 0-5 [facility] Work Phone: Urinalysis complete panel - Urine 0 SEEN Normal 0-5 [facility] Work Phone: Comment on above: How was Urine Obtain ed? [facility] [address] [place], [place], [id number] Urinalysis complete panel - Urine Negative Normal [facility] Work Phone: Comment on above: How was Urine Obtain ed? [facility] [address] [place], [place], [phone] Urinalysis complete panel - Urine Sl. Cloudy Normal [facility] Work Phone: Comment on above: How was Urine Obtain ed? [facility] [address] [place], [place], [phone] Urinalysis complete panel - Urine Yellow Normal [facility] Work Phone: Comment on above: How was Urine Obtain ed? [facility] [address] [place], [id number] Urinalysis complete panel - Urine Normal Normal [facility] Work Phone: Comment on above: How was Urine Obtain ed? [facility] [address] [place], [address] Urinalysis complete panel - Urine 5.0 1 Normal 5.0 - 8.0 [facility] Work Phone: Comment on above: How was Urine Obtain ed? [facility] [address] [place], [address] Urinalysis complete panel - Urine 1.015 1 Normal 1.002-1.030 [facility] Work Phone: Comment on above: How was Urine Obtain ed? [facility] [address] [place], [place], [phone] Urinalysis complete panel - Urine 0-5 SEEN Normal 5-10 [facility] Work Phone: Comment on above: How was Urine Obtain ed? [facility] [address] [place], [place], [phone] Glucoseon 01-28-2018 Glucose mass conc 95 mg/dL Normal 74-106 Compreh ensive Internal Medicine Work Phone: Comment on above: Please note revised GLUCOSE reference range /02/2018. [facility] [address] [place], [id number] Hemoglobin A1con 01-28-2018 Hemoglobin A1c/Hemoglobin.total mass fraction (Bld) 5.9 % Normal 4.2-6.3 Comprehensiv e Internal Medicine Work Phone: Comment on above: [facility] [address] [place], [phone] Lipid Profileon 01-28-2018 Cholesterol in HDL mass conc 66 mg/dL Normal [facility] Work Phone: Comment on above: The drugs N-Acetylcy steine and Metamizole may falselydepress this assay. Reference Range HDL <40 mg/dL Low HDL Cholesterol HDL >or= 60 mg/dL High HDL Cholesterol [facility] [address] [place], [place], [address] Cholesterol in LDL mass conc 124 mg/dL Normal 0-130 [facility] Work Phone: Cholesterol in LDL mass conc 124 mg/dL Normal 0-130 [facility] Work Phone: Comment on above: [facility] [address] [place], [place], [id number] Cholesterol in VLDL mass conc 25 mg/dL Normal 5-40 [facility] Work Phone: Comment on above: [facility] [address] [place], [place], [address] Cholesterol mass conc 215 mg/dL Abnormal Com prehensive Internal Medicine Work Phone: Comment on above: <200 mg/dL Desirable 200-240 mg/dL Borderline >240 mg/dL High Risk [facility] [address] [place], [place], [address] Triglyceride mass conc 124 mg/dL Normal Co mprehensive Internal Medicine Work Phone: Comment on above: The drugs N-Acetylcy steine and Metamizole may falselydepress this assay.Serum Triglycerides Reference Interval Normal <150 mg/dL Borderline high 150 - 199 mg/dL High 200 - 499 mg/dL Very High > or = 500 mg/dL [facility] [address] [place], [place], [address] Lipid Profile 25 mg/dL Normal 5-40 Comprehensi Internal Medicine Work Phone: Comment on above: [facility] [address] [place], [place], [phone] Microalbon 01-28-2018 Creatinine mass conc Test not performed Normal [facility] Work Phone: Comment on above: [facility] [address] [place], [address] Creatinine mass conc 30.70 mg/dL Normal Com prehensive Internal Medicine Work Phone: Comment on above: [facility] [address] [place], [place], [phone] MICROALBUMIN,UR < 5.0 Normal Comprehen sive Internal Medicine Work Phone: UR CREAT 30.70 mg/dL Normal [facility] Work Phone: Microalb < 5.0 Normal [facility] Work Phone: Comment on above: [facility] [address] [place], [place], [address] Urinalysis, Completeon 01-28 Protein mass conc (U) Negative Normal Com prehensive Internal Medicine Work Phone: Comment on above: How was Urine Obtain ed? [facility] [address] [place], [address] RBC #/vol (U) 0 SEEN Normal 0-5 Comprehensi ve Internal Medicine Work Phone: Comment on above: How was Urine Obtain ed? [facility] [address] [place], [address] RBC Test strip #/vol (U) 0 SEEN Normal 0-5 [facility] Work Phone: Urinalysis complete panel - Urine Normal Normal [facility] Work Phone: Comment on above: How was Urine Obtain ed? [facility] [address] [place], [address] Urinalysis complete panel - Urine 0-5 SEEN Normal 5-10 [facility] Work Phone: Comment on above: How was Urine Obtain ed? [facility] [address] [place], [address] Urinalysis complete panel - Urine 0 SEEN Normal 0-5 [facility] Work Phone: Comment on above: How was Urine Obtain ed? [facility] [address] [place], [address] Urinalysis complete panel - Urine Negative Normal [facility] Work Phone: Comment on above: How was Urine Obtain ed? [facility] [address] [place], [address] Urinalysis complete panel - Urine Clear Normal [facility] Work Phone: Comment on above: How was Urine Obtain ed? [facility] [address] [place], [address] Urinalysis complete panel - Urine Yellow Normal [facility] Work Phone: Comment on above: How was Urine Obtain ed? [facility] [address] [place], [phone] Urinalysis complete panel - Urine 1.010 1 Normal 1.002-1.030 [facility] Work Phone: Comment on above: How was Urine Obtain ed? [facility] [address] [place], [address] Urinalysis complete panel - Urine 6.0 1 Normal 5.0 - 8.0 [facility] Work Phone: Comment on above: How was Urine Obtain ed? [facility] [address] [place], [id number] Vitamin D,25 Hydroxyon 01-28 Vitamin D 25-OH 24.0 ng/mL Abnormal 29.95-100.0 1 [facility] Work Phone: Comment on above: Vitamin D 25(OH) Sta tus Range Deficiency <20 ng/mL (50nmol/L) Insuffciency 20 - 30 ng/mL (50 - 75 nmol/L) Sufficiency 30 - 100 ng/mL (75 - 250 nmol/L) Toxicity >100 ng/mL (>250 nmol/L) Vitamin D,25 Hydroxy 24.0 ng/mL Abnormal 29.95-1 00.0 1 [facility] Work Phone: Comment on above: Vitamin D 25(OH) Sta tus Range Deficiency <20 ng/mL (50nmol/L) Insuffciency 20 - 30 ng/mL (50 - 75 nmol/L) Sufficiency 30 - 100 ng/mL (75 - 250 nmol/L) Toxicity >100 ng/mL (>250 nmol/L) [facility] [address] [place], [address] Lesion (choose site)on 09-24 Lesion (choose site) See Note Normal Comp rehensive Internal Medicine Work Phone: Comment on above: Patient: NERISSA RG : 1950 (67/F) Acct Num: [id number] Phys: Cornel TORRES,Venecia Unit Num: [id number] Loc: LABSPEC Specimen: [id number] Received: 09/24/171824 Spec Type: Lesion TISSUES TISSUES: Skin of nose, NOS GROSS DESCRIPTION Received in fixative is one container labeled with the patient's name and designated lesion, left nasal dorsum. The specimen consists of a light galeas shaved skin measuring 0.6 x 0.4 x 0.1 cm. The specimen is totally submitted in one cassette for postfixation sectioning. / AM:camila 09/25/17 TC:1 CPT: 86272 HEADER OPERATION: Intradermal excision lesion left nasal dorsum PRE-OP DIAGNOSIS: Enlarging lesion left nasal dorsum TISSUE SUBMITTED: Left nasal dorsum MICROSCOPIC DESCRIPTION Slides are reviewed. MICROSCOPIC DIAGNOSIS Left nasal dorsum lesion, shave biopsy: Intradermal nevus. SJ:camila 09/28/17 Signed Fox Swartzin 09/28/17 [facility] [address] [place], [place], [phone] Glucoseon 02-03-2017 Glucose mass conc 88 mg/dL Normal 70-110 Compreh ensive Internal Medicine Work Phone: Comment on above: [facility] [address] [place], [place], [address] Hemoglobin A1con 02-03-2017 Hemoglobin A1c/Hemoglobin.total mass fraction (Bld) 5.8 % Normal 4.2-6.3 Comprehensiv e Internal Medicine Work Phone: Comment on above: [facility] [address] [place], [place], [phone] Lipid Profileon 02-03-2017 Cholesterol in HDL mass conc 69 mg/dL Normal [facility] Work Phone: Comment on above: The drugs N-Acetylcy steine and Metamizole may falselydepress this assay. Reference Range HDL <40 mg/dL Low HDL Cholesterol HDL >or= 60 mg/dL High HDL Cholesterol [facility] [address] [place], [place], [address] Cholesterol in LDL mass conc 107 mg/dL Normal 0-130 [facility] Work Phone: Cholesterol in LDL mass conc 107 mg/dL Normal 0-130 [facility] Work Phone: Comment on above: [facility] [address] [place], [place], [address] Cholesterol in VLDL mass conc 20 mg/dL Normal 5-40 [facility] Work Phone: Comment on above: [facility] [address] [place], [place], [address] Cholesterol mass conc 196 mg/dL Normal Com prehensive Internal Medicine Work Phone: Comment on above: <200 mg/dL Desirable 200-240 mg/dL Borderline >240 mg/dL High Risk [facility] [address] [place], [address] Triglyceride mass conc 102 mg/dL Normal Co mprehensive [facility] Work Phone: Comment on above: The drugs N-Acetylcy steine and Metamizole may falselydepress this assay.Serum Triglycerides Reference Interval Normal <150 mg/dL Borderline high 150 - 199 mg/dL High 200 - 499 mg/dL Very High > or = 500 mg/dL [facility] [address] [place], [address] Lipid Profile 20 mg/dL Normal 5-40 Comprehensi ve Internal Medicine Work Phone: Comment on above: [facility] [address] [place], [place], [address] Microalbon 02-03-2017 Creatinine mass conc Test not performed Normal [facility] Work Phone: Comment on above: [facility] [address] [place], [place], [address] Creatinine mass conc 18.00 mg/dL Normal Com prehensive Internal Medicine Work Phone: Comment on above: [facility] [address] [place], [place], [address] MICROALBUMIN,UR < 5.0 Normal Comprehen sive Internal Medicine Work Phone: UR CREAT 18.00 mg/dL Normal [facility] Work Phone: Microalb < 5.0 Normal [facility] Work Phone: Comment on above: [facility] [address] [place], [place], [address] Urinalysis, Routine (Dipstic k)on 02-03-2017 CLARITY Clear Normal [facility] Work Phone: Clarity Nom (U) Clear Normal Comprehen sive Internal Medicine Work Phone: Comment on above: How was Urine Obtain ed? [facility] [address] [place], [address] ; OV 10/2 COLOR Straw Normal [facility] Work Phone: Color Nom (U) Straw Normal Comprehensi ve Internal Medicine Work Phone: Comment on above: How was Urine Obtain ed? [facility] [address] [place], [place], [address] ; OV 10/2 KETONE UR Negative Normal [facility] Work Phone: pH UR 6.5 1 Normal 5.0 - 8.0 [facility] Work Phone: SP.GR. DIPSTX 1.010 1 Normal 1.002-1.030 Comprehens adela Internal Medicine Work Phone: UROBILI Normal Normal [facility] Work Phone: Urinalysis, Routine (Dipstick) Negative Normal [facility] Work Phone: Comment on above: How was Urine Obtain ed? [facility] [address] [place], [place], [address] ; OV 10/2 Urinalysis, Routine (Dipstick) 6.5 1 Normal 5.0 - 8.0 [facility] Work Phone: Comment on above: How was Urine Obtain ed? [facility] [address] [place], [place], [phone] ; OV 10/2 Urinalysis, Routine (Dipstick) 1.010 1 Normal 1.002-1.030 [facility] Internal Medicine Work Phone: Comment on above: How was Urine Obtain ed? [facility] [address] [place], [address] ; OV 10/2 Urinalysis, Routine (Dipstick) Normal Normal [facility] Internal Medicine Work Phone: Comment on above: How was Urine Obtain ed? [facility] [address] [place], [address] ; OV 02/16 Vitamin D,25 Hydroxyon 02-03 Vitamin D 25-OH 62.9 ng/mL Normal [facility] Work Phone: Comment on above: Vitamin D 25(OH) Sta tus Range Deficiency <20 ng/mL (50nmol/L) Insuffciency 20 - 30 ng/mL (50 - 75 nmol/L) Sufficiency 30 - 100 ng/mL (75 - 250 nmol/L) Toxicity >100 ng/mL (>250 nmol/L) Vitamin D,25 Hydroxy 62.9 ng/mL Normal Comp rehensive Internal Medicine Work Phone: Comment on above: Vitamin D 25(OH) Sta tus Range Deficiency <20 ng/mL (50nmol/L) Insuffciency 20 - 30 ng/mL (50 - 75 nmol/L) Sufficiency 30 - 100 ng/mL (75 - 250 nmol/L) Toxicity >100 ng/mL (>250 nmol/L) [facility] [address] [place], [address] CBC, Employeeon 01-22-2017 Absolute Lymph 3.56 {X10_3/ul} Normal 0.83-4.51 Compr ehensive Internal Medicine Work Phone: Absolute Neut 4.5 {X10_3/uL} Normal 2.0-7.7 Compreh ensive Internal Medicine Work Phone: Basophils/100 WBC (Bld) 0.4 % Normal 0-1 C omprehensive Internal Medicine Work Phone: Comment on above: [facility] [address] [place], [address] Basophils/100 WBC Auto (Bld) 0.4 % Normal 0-1 [facility] Work Phone: Eosinophils/100 WBC (Bld) 2.9 % Normal 0-5 [facility] Work Phone: Comment on above: [facility] [address] [place], [address] Eosinophils/100 WBC Auto (Bld) 2.9 % Normal 0-5 [facility] Work Phone: Erythrocyte distribution width Auto Ratio (RBC) 14.4 % Normal 11.6-14.6 [facility] Work Phone: Erythrocyte distribution width Ratio (RBC) 14.4 % Normal 11.6-14.6 [facility] Work Phone: Comment on above: [facility] [address] [place], [address] Hematocrit Auto Volume Fraction (Bld) 43.8 % Normal 37-47 [facility] Work Phone: Hematocrit Volume Fraction (Bld) 43.8 % Normal 37-47 [facility] Work Phone: Comment on above: [facility] [address] [place], [address] Hemoglobin mass conc (Bld) 13.8 g/dL Normal 12.0-15.0 [facility] Work Phone: Comment on above: [facility] [address] [place], [address] Lymphocytes/100 WBC (Bld) 39.5 % Normal 19-41 [facility] Work Phone: Comment on above: [facility] [address] [place], [address] Lymphocytes/100 WBC Auto (Bld) 39.5 % Normal 19-41 [facility] Work Phone: MCH Auto Entitic mass (RBC) 28.5 pg Normal 27.0-32.0 [facility] Work Phone: MCH Entitic mass (RBC) 28.5 pg Normal 27.0-32.0 [facility] Internal Medicine Work Phone: Comment on above: [facility] [address] [place], [address] MCHC Auto mass conc (RBC) 31.5 {g/gl} Abnormal 32-36 [facility] Work Phone: MCHC mass conc (RBC) 31.5 {g/gl} Abnormal 32-36 Com prehensive Internal Medicine Work Phone: Comment on above: [facility] [address] [place], [place], [phone] MCV Auto Entitic volume (RBC) 90.5 fL Normal 81-99 [facility] Work Phone: MCV Entitic volume (RBC) 90.5 fL Normal 81-99 [facility] Work Phone: Comment on above: [facility] [address] [place], [address] Monocytes/100 WBC Auto (Bld) 7.3 % Normal 0-10 [facility] Work Phone: Comment on above: [facility] [address] [place], [address] Neutrophils/100 WBC (Bld) 49.7 % Normal 47-70 [facility] Work Phone: Comment on above: [facility] [address] [place], [address] Neutrophils/100 WBC Auto (Bld) 49.7 % Normal 47-70 [facility] Work Phone: Platelet mean volume Auto Entitic volume (Bld) 11.5 fL Normal 6.2-12.0 [facility] Work Phone: Platelet mean volume Entitic volume (Bld) 11.5 fL Normal 6.2-12.0 Comprehensi Internal Medicine Work Phone: Comment on above: [facility] [address] [place], [address] Platelets #/vol (Bld) 353 10*3/uL Normal 150-450 [facility] Work Phone: Comment on above: [facility] [address] [place], [place], [address] Platelets Auto #/vol (Bld) 353 10*3/uL Normal 150-450 [facility] Work Phone: RBC #/vol (Bld) 4.84 {M/mm3} Normal 4.2-5.4 Compreh ensive Internal Medicine Work Phone: Comment on above: [facility] [address] [place], [address] RBC Auto #/vol (Bld) 4.84 {M/mm3} Normal 4.2-5.4 Co mprehensive Internal Medicine Work Phone: RDW SD 47.0 fL Abnormal 35.1-43.9 [facility] Work Phone: WBC #/vol (Bld) 9.0 10*3/uL Normal 4.4-11.0 Comprehe nsive Internal Medicine Work Phone: Comment on above: [facility] [address] [place], [address] WBC Auto #/vol (Bld) 9.0 10*3/uL Normal 4.4-11.0 Com prehensive Internal Medicine Work Phone: CBC, Employee 47.0 fL Abnormal 35.1-43.9 Comprehensi ve Internal Medicine Work Phone: Comment on above: [facility] [address] [place], [address] CBC, Employee 3.56 {X10_3/ul} Normal 0.83-4.51 Compre hensive Internal Medicine Work Phone: Comment on above: [facility] [address] [place], [place], [address] CBC, Employee 4.5 {X10_3/uL} Normal 2.0-7.7 Compreh ensive Internal Medicine Work Phone: Comment on above: [facility] [address] [place], [place], [address] Employee Profileon 7 A/G 0.9 {RATIO} Normal 0.9-2.4 [facility] Work Phone: Albumin mass conc 3.6 g/dL Normal 3.4-5.0 [facility] Work Phone: Comment on above: [facility] [address] [place], [place], [address] Albumin/Globulin mass ratio 0.9 {RATIO} Normal 0.9-2.4 [facility] Work Phone: Comment on above: [facility] [address] [place], [place], [phone] ALP enzyme act/vol 81 U/L Normal 45-117 [facility] Internal Medicine Work Phone: ALT enzyme act/vol 24 U/L Normal 12-78 [facility] Internal Medicine Work Phone: Comment on above: [facility] [address] [place], [place], [phone] AST enzyme act/vol 19 U/L Normal 15-37 [facility] Internal Medicine Work Phone: Comment on above: [facility] [address] [place], [place], [phone] Bilirubin mass conc 0.40 mg/dL Normal 0.20-1.00 [facility] Internal Medicine Work Phone: Comment on above: [facility] [address] [place], [address] Bilirubin.direct mass conc 0.12 mg/dL Normal 0.00-0.30 [facility] Work Phone: Comment on above: [facility] [address] [place], [place], [phone] BUN/CRE 17.5 {RATIO} Normal 10-20 Comprehensiv e Internal Medicine Work Phone: Calcium mass conc 9.0 mg/dL Normal 8.5-10.1 Compreh ensive Internal Medicine Work Phone: Comment on above: [facility] [address] [place], [place], [phone] Chloride molar conc 105 mmol/L Normal 98-107 Compr ehensive Internal Medicine Work Phone: Comment on above: [facility] [address] [place], [place], [phone] CHOL:HDL 3.20 1 Normal [facility] Work Phone: Cholesterol in HDL mass conc 71 mg/dL Normal [facility] Work Phone: Comment on above: The drugs N-Acetylcy steine and Metamizole may falselydepress this assay. Reference Range HDL <40 mg/dL Low HDL Cholesterol HDL >or= 60 mg/dL High HDL Cholesterol [facility] [address] [place], [place], [phone] Cholesterol in LDL mass conc 125 mg/dL Normal 0-130 [facility] Work Phone: Cholesterol in LDL mass conc 125 mg/dL Normal 0-130 [facility] Work Phone: Comment on above: [facility] [address] [place], [place], [phone] Cholesterol in VLDL mass conc 31 mg/dL Normal 5-40 [facility] Work Phone: Cholesterol mass conc 227 mg/dL Abnormal Com prehensive Internal Medicine Work Phone: Comment on above: <200 mg/dL Desirable 200-240 mg/dL Borderline >240 mg/dL High Risk [facility] [address] [place], [place], [phone] CO2 molar conc 27.0 mmol/L Normal 21.0-32.0 Comprehen sive Internal Medicine Work Phone: Comment on above: [facility] [address] [place], [place], [phone] Creatinine mass conc 0.80 mg/dL Normal 0.55-1.02 [facility] Work Phone: Comment on above: The validity of the calculated GFR AND GFRAA in patients over70 years has not been determined. Clinical correlation isessential. [facility] [address] [place], [place], [phone] EST GFR - AA 93 mL/min Normal Comprehensiv e Internal Medicine Work Phone: Comment on above: GFR Calc GAP 9 1 Normal 5-15 [facility] Work Phone: GFR/1.73 sq M predicted among non-blacks MDRD vol rate/area (S/P/Bld) 77 mL/min/{1.73_m2} Normal [facility] Work Phone: Comment on above: Non- GFR Calc [facility] [address] [place], [place], [phone] Globulin Calculated mass conc (S) 3.8 g/dL Abnormal 2.3-3.5 [facility] Work Phone: Globulin mass conc (S) 3.8 g/dL Abnormal 2.3-3.5 Co [facility] Internal Medicine Work Phone: Comment on above: [place] [address] [place], [place], [phone] Glucose mass conc 79 mg/dL Normal 70-110 Compreh [facility] Work Phone: Comment on above: [facility] [address] [place], [place], [phone] LDH 179 U/L Normal 84-246 [facility] Work Phone: Phosphate mass conc 3.5 mg/dL Normal 2.5-4.9 [facility] Internal Medicine Work Phone: Potassium molar conc 3.8 mmol/L Normal 3.5-5.1 Comp rehensive Internal Medicine Work Phone: Comment on above: [facility] [address] [place], [place], [phone] Protein mass conc 7.4 g/dL Normal 6.4-8.2 Compreh ensive Internal Medicine Work Phone: Comment on above: [facility] [address] [place], [place], [phone] Sodium molar conc 141 mmol/L Normal 136-145 Compreh ensive Internal Medicine Work Phone: Comment on above: [facility] [address] [place], [place], [phone] Triglyceride mass conc 154 mg/dL Normal [facility] Work Phone: Comment on above: The drugs N-Acetylcy steine and Metamizole may falselydepress this assay.Serum Triglycerides Reference Interval Normal <150 mg/dL Borderline high 150 - 199 mg/dL High 200 - 499 mg/dL Very High > or = 500 mg/dL [facility] [address] [place], [place], [phone] Urea nitrogen mass conc 14 mg/dL Normal 7-18 C omprehensive Internal Medicine Work Phone: Comment on above: [facility] [address] [place], [place], [phone] URIC 4.4 mg/dL Normal 2.6-6.0 [facility] Work Phone: Comment on above: The drugs N-Acetylcy steine and Metamizole may falselydepress this assay. Employee Profile 3.5 mg/dL Normal 2.5-4.9 Comprehe nsive Internal Medicine Work Phone: Comment on above: [facility] [address] [place], [place], [phone] Employee Profile 81 U/L Normal 45-117 Comprehe nsive Internal Medicine Work Phone: Comment on above: [facility] [address] [place], [address] Employee Profile 9 1 Normal 5-15 Comprehe nsive Internal Medicine Work Phone: Comment on above: [facility] [address] [place], [address] Employee Profile 3.20 1 Normal Comprehe nsive Internal Medicine Work Phone: Comment on above: [place] [address] [place], [address] Employee Profile 93 mL/min Normal Comprehe nsive Internal Medicine Work Phone: Comment on above: GFR Calc [place] [address] [place], [place], [address] Employee Profile 17.5 {RATIO} Normal 10-20 Compre hensive Internal Medicine Work Phone: Comment on above: [place] [address] [place], [address] Employee Profile 179 U/L Normal 84-246 Comprehe nsive Internal Medicine Work Phone: Comment on above: [place] [address] [place], [address] Employee Profile 31 mg/dL Normal 5-40 Comprehe nsive Internal Medicine Work Phone: Comment on above: [place] [address] [place], [address] Employee Profile 4.4 mg/dL Normal 2.6-6.0 Comprehe nsive Internal Medicine Work Phone: Comment on above: The drugs N-Acetylcy steine and Metamizole may falselydepress this assay. [facility] [place], [place], [address] Nicotine Urine Drug Screenon 01-22-2017 COT DRG SCREEN Negative Normal Comprehens [facility]ela Internal Medicine Work Phone: Comment on above: Cotinine is the firs t-stage metabolite of Nicotine. TO BE CONFIRMED Normal Comprehen [facility] Internal Medicine Work Phone: Comment on above: CONFIRMATORY TESTING FOR ALL POSITIVE URINE DRUG SCREENRESULTS WILL ONLY BE SENT OUT UPON PHYSICIAN ORDER.The results of Urine Drug Screen methods provide onlypreliminary analytical test results. A more specificalternate chemical method must be used in order to obtain aconfirmed analytical result. Gas chromatography/massspectrometery (GC/MS) is the preferred confirmatory method.Clinical consideration and professional judgement should beapplied to any drug of abuse test result, particularly whenpreliminary positive results are used. Nicotine Urine Drug Screen Normal [facility] Work Phone: Comment on above: CONFIRMATORY TESTING FOR ALL POSITIVE URINE DRUG SCREENRESULTS WILL ONLY BE SENT OUT UPON PHYSICIAN ORDER.The results of Urine Drug Screen methods provide onlypreliminary analytical test results. A more specificalternate chemical method must be used in order to obtain aconfirmed analytical result. Gas chromatography/massspectrometery (GC/MS) is the preferred confirmatory method.Clinical consideration and professional judgement should beapplied to any drug of abuse test result, particularly whenpreliminary positive results are used. [facility] [address] [place], [address] Urinalysis, Employeeon 01-22 CLARITY Clear Normal [facility] Work Phone: Clarity Nom (U) Clear Normal Comprehen [facility] Internal Medicine Work Phone: Comment on above: [facility] [address] [place], [place], [address] COLOR Yellow Normal [facility] Work Phone: Color Nom (U) Yellow Normal Comprehensi Internal Medicine Work Phone: Comment on above: [facility] [address] [place], [place], [phone] GLUCOSE, UR Normal Normal [facility] Work Phone: KETONE UR Negative Normal [facility] Work Phone: OCCULT BLOOD-UR 10 /ul Abnormal Comprehen sive Internal Medicine Work Phone: pH UR 6.0 1 Normal 5.0 - 8.0 [facility] Internal Medicine Work Phone: SP.GR. DIPSTX 1.015 1 Normal 1.002-1.030 [facility] Internal Medicine Work Phone: Urinalysis, Employee Negative Normal [facility] rehensive Internal Medicine Work Phone: Comment on above: [facility] [address] [place], [place], [phone] Cotinine is the firs t-stage metabolite of Nicotine. Urinalysis, Employee 10 /ul Abnormal [facility] Work Phone: Comment on above: [facility] [address] [place], [place], [phone] Urinalysis, Employee Normal Normal [facility] Work Phone: Comment on above: [facility] [address] [place], [place], [phone] Urinalysis, Employee 1.015 1 Normal 1.002-1.030 [facility] Internal Medicine Work Phone: Comment on above: [facility] [address] [place], [place], [address] Urinalysis, Employee 6.0 1 Normal 5.0 - 8.0 [facility] Work Phone: Comment on above: [facility] [address] [place], [place], [phone] Comprehensive Metabolic Prof vton 10-22-2016 Comprehensive metabolic 2000 panel 106 mmol/L Normal 98-107 [facility] Internal Medicine Work Phone: Comment on above: [facility] [address] [place], [place], [id number] ; can review on 10/27 Comprehensive metabolic 2000 panel 27.0 mmol/L Normal 21.0-32.0 [facility] Work Phone: Comment on above: [facility] [address] [place], [address] ; can review on 10/27 Comprehensive metabolic 2000 panel 8 1 Normal 5-15 [facility] Work Phone: Comment on above: [facility] [address] [place], [place], [address] ; can review on 10/27 Comprehensive metabolic 2000 panel 141 mmol/L Normal 136-145 [facility] Work Phone: Comment on above: [facility] spital [address] [place], [place], [address] ; can review on 10/27 Comprehensive metabolic 2000 panel 0.60 mg/dL Normal 0.20-1.00 [facility] Work Phone: Comment on above: [facility] [address] [place], [address] ; can review on 10/27 Comprehensive metabolic 2000 panel 85 mg/dL Normal 70-110 [facility] Work Phone: Comment on above: [facility] [address] [place], [address] ; can review on 10/27 Comprehensive metabolic 2000 panel 82 U/L Normal 45-117 [facility] Work Phone: Comment on above: [facility] [address] [place], [address] ; can review on 10/27 Comprehensive metabolic 2000 panel 15 mg/dL Normal 7-18 [facility] Work Phone: Comment on above: [facility] [address] [place], [address] ; can review on 10/27 Comprehensive metabolic 2000 panel 0.88 mg/dL Normal 0.55-1.02 [facility] Work Phone: Comment on above: The validity of the calculated GFR AND GFRAA in patients over70 years has not been determined. Clinical correlation isessential. [facility] [address] [place], [place], [phone] ; can review on 10/27 Comprehensive metabolic 2000 panel 14 U/L Abnormal 15-37 [facility] Work Phone: Comment on above: [facility] [address] [place], [place], [phone] ; can review on 10/27 Comprehensive metabolic 2000 panel 9.1 mg/dL Normal 8.5-10.1 [facility] Work Phone: Comment on above: [facility] [address] [place], [place], [phone] ; can review on 10/27 Comprehensive metabolic 2000 panel 69 mL/min Normal [facility] Work Phone: Comment on above: Non- GFR Calc [facility] [address] [place], [place], [address] ; can review on 10/27 Comprehensive metabolic 2000 panel 83 mL/min Normal [facility] Work Phone: Comment on above: GFR Calc [facility] [address] [place], [place], [phone] ; can review on 10/27 Comprehensive metabolic 2000 panel 17.1 {RATIO} Normal 10-20 [facility] Work Phone: Comment on above: [facility] [address] [place], [place], [address] ; can review on 10/27 Comprehensive metabolic 2000 panel 1.0 {RATIO} Normal 0.9-2.4 [facility] Work Phone: Comment on above: [facility] [address] [place], [place], [phone] ; can review on 10/27 Comprehensive metabolic 2000 panel 20 U/L Normal 12-78 [facility] Work Phone: Comment on above: [facility] [address] [place], [place], [address] ; can review on 10/27 Comprehensive metabolic 2000 panel 3.8 g/dL Abnormal 2.3-3.5 [facility] Work Phone: Comment on above: [facility] [address] [place], [place], [phone] ; can review on 10/27 Comprehensive metabolic 2000 panel 7.5 g/dL Normal 6.4-8.2 [facility] Work Phone: Comment on above: [facility] [address] [place], [place], [phone] ; can review on 10/27 Comprehensive metabolic 2000 panel 3.7 mmol/L Normal 3.5-5.1 [facility] Work Phone: Comment on above: [facility] [address] [place], [place], [phone] ; can review on 10/27 Comprehensive metabolic 2000 panel 3.7 g/dL Normal 3.4-5.0 [facility] Work Phone: Comment on above: [facility] [address] [place], [place], [address] ; can review on 10/27 Hemoglobin A1con 10-22-2016 Hemoglobin A1c/Hemoglobin.total mass fraction (Bld) 5.9 % Normal 4.2-6.3 Comprehensiv e Internal Medicine Work Phone: Comment on above: [facility] [address] [place], [place], [address] Lipid Profileon 10-22-2016 Cholesterol in HDL mass conc 65 mg/dL Normal [facility] Work Phone: Comment on above: The drugs N-Acetylcy steine and Metamizole may falsely deressthis assay. Reference Range HDL <40 mg/dL Low HDL Cholesterol HDL >or= 60 mg/dL High HDL Cholesterol [facility] [address] [place], [place], [id number] Cholesterol in LDL mass conc 110 mg/dL Normal 0-130 [facility] Work Phone: Cholesterol in LDL mass conc 110 mg/dL Normal 0-130 [facility] Work Phone: Comment on above: [facility] [address] [place], [place], [address] Cholesterol in VLDL mass conc 26 mg/dL Normal 5-40 [facility] Work Phone: Comment on above: [facility] [address] [place], [place], [phone] Cholesterol mass conc 201 mg/dL Abnormal Com [facility] Work Phone: Comment on above: <200 mg/dL Desirable 200-240 mg/dL Borderline >240 mg/dL High Risk [facility] [address] [place], [place], [phone] Triglyceride mass conc 132 mg/dL Normal Co [facility] Internal Medicine Work Phone: Comment on above: The drugs N-Acetylcy steine and Metamizole may falsely deressthis assay.Serum Triglycerides Reference Interval Normal <150 mg/dL Borderline high 150 - 199 mg/dL High 200 - 499 mg/dL Very High > or = 500 mg/dL [facility] [address] [place], [place], [address] Lipid Profile 26 mg/dL Normal 5-40 Comprehensi Internal Medicine Work Phone: Comment on above: [facility] [address] [place], [place], [address] Magnesiumon 10-22-2016 Magnesium mass conc 2.1 mg/dL Normal 1.8-2.4 [facility] Internal Medicine Work Phone: Comment on above: [facility] [address] [place], [place], [phone] Thyroid Stim Hormone (TSH)on 10-22-2016 Thyrotropin Qn 1.54 {uIU/mL} Normal 0.358-3.74 Compreh ensive Internal Medicine Work Phone: Comment on above: [facility] [address] [place], [address] Vitamin B12on 10-22-2016 Cobalamin (Vitamin B12) mass conc 482 pg/mL Normal 211-911 [facility] Work Phone: Comment on above: [facility] [address] [place], [address] Vitamin D,25 Hydroxyon 10-22 Vitamin D 25-OH 16.5 ng/mL Normal Comprehen sive Internal Medicine Work Phone: Comment on above: Vitamin D 25(OH) Sta tus Range Deficiency <20 ng/mL (50nmol/L) Insuffciency 20 - 30 ng/mL (50 - 75 nmol/L) Sufficiency 30 - 100 ng/mL (75 - 250 nmol/L) Toxicity >100 ng/mL (>250 nmol/L) Vitamin D,25 Hydroxy 16.5 ng/mL Normal Comp rehensive Internal Medicine Work Phone: Comment on above: Vitamin D 25(OH) Sta tus Range Deficiency <20 ng/mL (50nmol/L) Insuffciency 20 - 30 ng/mL (50 - 75 nmol/L) Sufficiency 30 - 100 ng/mL (75 - 250 nmol/L) Toxicity >100 ng/mL (>250 nmol/L) [facility] [address] [place], [address] CBC, Employeeon 01-31-2016 Absolute Lymph 2.76 {X10_3/ul} Normal 0.83-4.51 Compr ehensive Internal Medicine Work Phone: Absolute Neut 4.0 {X10_3/uL} Normal 2.0-7.7 Compreh ensive Internal Medicine Work Phone: Basophils/100 WBC (Bld) 0.3 % Normal 0-1 C omprehensive Internal Medicine Work Phone: Comment on above: [facility] [address] [place], [address] Basophils/100 WBC Auto (Bld) 0.3 % Normal 0-1 [facility] Work Phone: Eosinophils/100 WBC (Bld) 3.3 % Normal 0-5 [facility] Work Phone: Comment on above: [facility] [address] [place], [address] Eosinophils/100 WBC Auto (Bld) 3.3 % Normal 0-5 [facility] Work Phone: Erythrocyte distribution width Auto Ratio (RBC) 14.3 % Normal 11.6-14.6 [facility] Work Phone: Erythrocyte distribution width Ratio (RBC) 14.3 % Normal 11.6-14.6 [facility] Work Phone: Comment on above: [facility] [address] [place], [address] Hematocrit Auto Volume Fraction (Bld) 41.9 % Normal 37-47 [facility] Work Phone: Hematocrit Volume Fraction (Bld) 41.9 % Normal 37-47 [facility] Work Phone: Comment on above: [facility] [address] [place], [address] Hemoglobin mass conc (Bld) 13.3 g/dL Normal 12.0-15.0 [facility] Work Phone: Comment on above: [facility] [address] [place], [address] Lymphocytes/100 WBC (Bld) 36.4 % Normal 19-41 [facility] Work Phone: Comment on above: [facility] [address] [place], [address] Lymphocytes/100 WBC Auto (Bld) 36.4 % Normal 19-41 [facility] Work Phone: MCH Auto Entitic mass (RBC) 28.3 pg Normal 27.0-32.0 [facility] Work Phone: MCH Entitic mass (RBC) 28.3 pg Normal 27.0-32.0 [facility] Work Phone: Comment on above: [facility] [address] [place], [address] MCHC Auto mass conc (RBC) 31.7 {g/gl} Abnormal 32-36 [facility] Work Phone: MCHC mass conc (RBC) 31.7 {g/gl} Abnormal 32-36 [facility] prehensive Internal Medicine Work Phone: Comment on above: [facility] [address] [place], [place], [phone]([phone] MCV Auto Entitic volume (RBC) 89.1 fL Normal 81-99 [facility] Work Phone: MCV Entitic volume (RBC) 89.1 fL Normal 81-99 [facility] Work Phone: Comment on above: [facility] [address] [place], [address] Monocytes/100 WBC Auto (Bld) 7.5 % Normal 0-10 [facility] Work Phone: Comment on above: [facility] [address] [place], [address] Neutrophils/100 WBC (Bld) 52.4 % Normal 47-70 [facility] Work Phone: Comment on above: [facility] [address] [place], [address] Neutrophils/100 WBC Auto (Bld) 52.4 % Normal 47-70 [facility] Work Phone: Platelet mean volume Auto Entitic volume (Bld) 10.9 fL Normal 6.2-12.0 [facility] Work Phone: Platelet mean volume Entitic volume (Bld) 10.9 fL Normal 6.2-12.0 Comprehensi ve Internal Medicine Work Phone: Comment on above: [facility] [address] [place], [address] Platelets #/vol (Bld) 376 10*3/uL Normal 150-450 Co mprehensive Internal Medicine Work Phone: Comment on above: [facility] [address] [place], [address] Platelets Auto #/vol (Bld) 376 10*3/uL Normal 150-450 [facility] Work Phone: RBC #/vol (Bld) 4.70 {M/mm3} Normal 4.2-5.4 Compreh ensive Internal Medicine Work Phone: Comment on above: [place] [address] [place], [address] RBC Auto #/vol (Bld) 4.70 {M/mm3} Normal 4.2-5.4 Co mprehensive Internal Medicine Work Phone: RDW SD 46.4 fL Abnormal 35.1-43.9 [facility] Work Phone: WBC #/vol (Bld) 7.6 10*3/uL Normal 4.4-11.0 Comprehe nsive Internal Medicine Work Phone: Comment on above: [place] [address] [place], [address] WBC Auto #/vol (Bld) 7.6 10*3/uL Normal 4.4-11.0 Com prehensive Internal Medicine Work Phone: CBC, Employee 46.4 fL Abnormal 35.1-43.9 Comprehensi ve Internal Medicine Work Phone: Comment on above: [facility] [address] [place], [address] CBC, Employee 2.76 {X10_3/ul} Normal 0.83-4.51 Compre [facility] Internal Medicine Work Phone: Comment on above: [facility] [address] [place], [address] CBC, Employee 4.0 {X10_3/uL} Normal 2.0-7.7 Compreh ensive Internal Medicine Work Phone: Comment on above: [facility] [address] [place], [address] Employee Profileon 6 A/G 0.9 {RATIO} Normal 0.9-2.4 [facility] Work Phone: Albumin mass conc 3.5 g/dL Normal 3.4-5.0 Compreh [facility] Work Phone: Comment on above: [facility] [address] [place], [address] Albumin/Globulin mass ratio 0.9 {RATIO} Normal 0.9-2.4 [facility] Work Phone: Comment on above: [facility] [address] [place], [place], [phone] ALP enzyme act/vol 78 U/L Normal 50-136 [facility] Work Phone: ALT enzyme act/vol 22 U/L Normal 12-78 Compre [facility] Internal Medicine Work Phone: Comment on above: [facility] [address] [place], [address] AST enzyme act/vol 23 U/L Normal 15-37 [facility] Work Phone: Comment on above: Slight Hemolysis, Re sult may be falsely increased. [facility] [address] [place], [address] Bilirubin mass conc 0.60 mg/dL Normal 0.20-1.00 Compr ensive Internal Medicine Work Phone: Comment on above: [facility] [address] [place], [address] Bilirubin.direct mass conc 0.12 mg/dL Normal 0.00-0.30 [facility] Work Phone: Comment on above: [facility] [address] [place], [address] BUN/CRE 16.3 {RATIO} Normal 10-20 Comprehensiv e Internal Medicine Work Phone: Calcium mass conc 8.6 mg/dL Normal 8.5-10.1 Compreh ensive Internal Medicine Work Phone: Comment on above: [facility] [address] [place], [place], [phone] Chloride molar conc 105 mmol/L Normal 98-107 Compr ensive Internal Medicine Work Phone: Comment on above: [facility] [address] [place], [place], [id number] CHOL:HDL 4.40 1 Normal [facility] Work Phone: Cholesterol in HDL mass conc 62 mg/dL Normal [facility] Work Phone: Comment on above: The drugs N-Acetylcy steine and Metamizole may falsely deressthis assay. Reference Range HDL <40 mg/dL Low HDL Cholesterol HDL >or= 60 mg/dL High HDL Cholesterol [facility] [address] [place], [place], [id number] Cholesterol in LDL mass conc 187 mg/dL Abnormal 0-130 [facility] Work Phone: Cholesterol in LDL mass conc 187 mg/dL Abnormal 0-130 [facility] Work Phone: Comment on above: [facility] [address] [place], [place], [id number] Cholesterol in VLDL mass conc 26 mg/dL Normal 5-40 [facility] Work Phone: Cholesterol mass conc 275 mg/dL Abnormal Com prehensive Internal Medicine Work Phone: Comment on above: <200 mg/dL Desirable 200-240 mg/dL Borderline >240 mg/dL High Risk [facility] [address] [place], [place], [phone] CO2 molar conc 26.0 mmol/L Normal 21.0-32.0 Comprehen [facility] Internal Medicine Work Phone: Comment on above: [facility] [address] [place], [place], [phone] Creatinine mass conc 0.92 mg/dL Normal 0.55-1.20 [facility] Work Phone: Comment on above: The validity of the calculated GFR AND GFRAA in patients over70 years has not been determined. Clinical correlation isessential. [facility] [address] [place], [place], [id number] EST GFR - AA 79 mL/min Normal Comprehens e Internal Medicine Work Phone: Comment on above: GFR Calc GAP 7 1 Normal 5-15 [facility] Work Phone: GFR/1.73 sq M predicted among non-blacks MDRD vol rate/area (S/P/Bld) 65 mL/min/{1.73_m2} Normal [facility] Work Phone: Comment on above: Non- GFR Calc [place] [address] [place], [place], [id number] Globulin Calculated mass conc (S) 3.8 g/dL Abnormal 2.3-3.5 [facility] Internal Medicine Work Phone: Globulin mass conc (S) 3.8 g/dL Abnormal 2.3-3.5 [facility] Internal Medicine Work Phone: Comment on above: [facility] [address] [place], [place], [id number] Glucose mass conc 88 mg/dL Normal 70-110 Compreh ensive Internal Medicine Work Phone: Comment on above: [facility] [address] [place], [address] LDH 229 U/L Normal 84-246 [facility] Work Phone: Comment on above: Slight Hemolysis, Re sult may be falsely increased. Phosphate mass conc 3.0 mg/dL Normal 2.5-4.9 Compr ehensive Internal Medicine Work Phone: Potassium molar conc 4.2 mmol/L Normal 3.5-5.1 Comp rehensive Internal Medicine Work Phone: Comment on above: Slight Hemolysis, Re sult may be falsely increased. [facility] [address] [place], [place], [id number] Protein mass conc 7.3 g/dL Normal 6.4-8.2 Compreh ensive Internal Medicine Work Phone: Comment on above: [facility] [address] [place], [place], [id number] Sodium molar conc 138 mmol/L Normal 136-145 Compreh ensive Internal Medicine Work Phone: Comment on above: [facility] [address] [place], [place], [id number] Triglyceride mass conc 129 mg/dL Normal [facility] Work Phone: Comment on above: The drugs N-Acetylcy steine and Metamizole may falsely deressthis assay.Serum Triglycerides Reference Interval Normal <150 mg/dL Borderline high 150 - 199 mg/dL High 200 - 499 mg/dL Very High > or = 500 mg/dL [facility] [address] [place], [address] Urea nitrogen mass conc 15 mg/dL Normal 7-18 C omprehensive Internal Medicine Work Phone: Comment on above: [facility] [address] [place], [place], [address] URIC 4.2 mg/dL Normal 2.6-6.0 [facility] Work Phone: Comment on above: The drugs N-Acetylcy steine and Metamizole may falsely deressthis assay. Employee Profile 229 U/L Normal 84-246 Comprehe nsive Internal Medicine Work Phone: Comment on above: Slight Hemolysis, Re sult may be falsely increased. [facility] [address] [place], [place], [address] Employee Profile 26 mg/dL Normal 5-40 Comprehe nsive Internal Medicine Work Phone: Comment on above: [facility] [address] [place], [address] Employee Profile 4.40 1 Normal Comprehe nsive Internal Medicine Work Phone: Comment on above: [place] [address] [place], [address] Employee Profile 7 1 Normal 5-15 Comprehe nsive Internal Medicine Work Phone: Comment on above: [facility] [address] [place], [address] Employee Profile 78 U/L Normal 50-136 Comprehe nsive Internal Medicine Work Phone: Comment on above: [facility] [address] [place], [address] Employee Profile 3.0 mg/dL Normal 2.5-4.9 Comprehe nsive Internal Medicine Work Phone: Comment on above: [facility] [address] [place], [place], [address] Employee Profile 4.2 mg/dL Normal 2.6-6.0 Comprehe nsive Internal Medicine Work Phone: Comment on above: The drugs N-Acetylcy steine and Metamizole may falsely deressthis assay. [facility] [address] [place], [place], [phone] Employee Profile 16.3 {RATIO} Normal 10-20 [facility]pre [facility] Internal Medicine Work Phone: Comment on above: [facility] [address] [place], [place], [id number] Employee Profile 79 mL/min Normal Comprehe nsive Internal Medicine Work Phone: Comment on above: GFR Calc [facility] [address] [place], [place], [id number] Nicotine Urine Drug Screenon 01-31-2016 COT DRG SCREEN Negative Normal Comprehens adela Internal Medicine Work Phone: Comment on above: Cotinine is the firs t-stage metabolite of Nicotine. TO BE CONFIRMED Normal Comprehen sive Internal Medicine Work Phone: Comment on above: CONFIRMATORY TESTING FOR ALL POSITIVE URINE DRUG SCREENRESULTS WILL ONLY BE SENT OUT UPON PHYSICIAN ORDER.The results of Urine Drug Screen methods provide onlypreliminary analytical test results. A more specificalternate chemical method must be used in order to obtain aconfirmed analytical result. Gas chromatography/massspectrometery (GC/MS) is the preferred confirmatory method.Clinical consideration and professional judgement should beapplied to any drug of abuse test result, particularly whenpreliminary positive results are used. Nicotine Urine Drug Screen Negative Normal [facility] Work Phone: Comment on above: Cotinine is the firs t-stage metabolite of Nicotine. [facility] [address] [place], [place], [id number] How was Urine Obtain ed? [facility] [address] [place], [place], [id number] Nicotine Urine Drug Screen Normal [facility] Work Phone: Comment on above: CONFIRMATORY TESTING FOR ALL POSITIVE URINE DRUG SCREENRESULTS WILL ONLY BE SENT OUT UPON PHYSICIAN ORDER.The results of Urine Drug Screen methods provide onlypreliminary analytical test results. A more specificalternate chemical method must be used in order to obtain aconfirmed analytical result. Gas chromatography/massspectrometery (GC/MS) is the preferred confirmatory method.Clinical consideration and professional judgement should beapplied to any drug of abuse test result, particularly whenpreliminary positive results are used. [facility] [address] [place], [place], [phone] Urinalysis, Employeeon 01-30 CLARITY Sl. Cloudy Normal [facility] Work Phone: Clarity Nom (U) Sl. Cloudy Normal [facility] Internal Medicine Work Phone: Comment on above: How was Urine Obtain ed? [facility] [address] [place], [place], [id number] COLOR Yellow Normal [facility] Work Phone: Color Nom (U) Yellow Normal [facility] Work Phone: Comment on above: How was Urine Obtain ed? [facility] [address] [place], [place], [phone] LEUK ESTERASE 25 /ul Abnormal Comprehensi ve Internal Medicine Work Phone: OCCULT BLOOD-UR Negative Normal [facility] Internal Medicine Work Phone: pH UR 6.5 1 Normal 5.0 - 8.0 [facility] Work Phone: SP.GR. DIPSTX 1.010 1 Normal 1.002-1.030 [facility] Internal Medicine Work Phone: UROBILI Normal Normal [facility] Internal Medicine Work Phone: Urinalysis, Employee 25 /ul Abnormal Comp rehensive Internal Medicine Work Phone: Comment on above: How was Urine Obtain ed? [facility] [address] [place], [place], [phone] Urinalysis, Employee Normal Normal Comp rehensive Internal Medicine Work Phone: Comment on above: How was Urine Obtain ed? [facility] [address] [place], [place], [id number] Urinalysis, Employee 6.5 1 Normal 5.0 - 8.0 [facility] rehensive Internal Medicine Work Phone: Comment on above: How was Urine Obtain ed? [facility] [address] [place], [address] Urinalysis, Employee 1.010 1 Normal 1.002-1.030 [facility] prehensive Internal Medicine Work Phone: Comment on above: How was Urine Obtain ed? [facility] [address] [place], [address] Vital Signs Date Time Vital Sign Value Performing Clinician Facility 08-22-2024 11:56-0400 Body height 154.94 cm Herlinda Lopez GASATERIA ATTENDANT-C Work Phone: [facility] 08-22-2024 11:47-0400 Body mass index (BMI) [Ratio] 28.9 kg/m2 Herlinda Lopez GASATERIA ATTENDANT-C Work Phone: [facility] 08-22-2024 11:47-0400 Body weight 69.51 kg Herlinda Lopez GASATERIA ATTENDANT-C Work Phone: [facility] 08-22-2024 11:47-0400 Diastolic blood pressure 70 mm[Hg] Herlinda Lopez GASATERIA ATTENDANT-C Work Phone: [facility] 08-22-2024 11:47-0400 Systolic blood pressure 132 mm[Hg] Herlinda Lopez GASATERIA ATTENDANT-C Work Phone: [facility] 09-01-2023 10:37-0400 Body temperature 98.2 [degF] GASATERIA ATTENDANT-C Herlinda Lopez Work Phone: [facility] 09-01-2023 10:37-0400 Diastolic blood pressure 70 mm[Hg] GASATERIA ATTENDANT-C Herlinda Lopez Work Phone: [facility] 09-01-2023 10:37-0400 Heart rate 64 /min GASATERIA ATTENDANT-C Herlinda John Work Phone: [facility] 09-01-2023 10:37-0400 Respiratory rate 16 /min GASATERIA ATTENDANT-C Herlinda John Work Phone: [facility] 09-01-2023 10:37-0400 SaO2% (BldA) [Mass fraction] 99 % GASATERIA ATTENDANT-C Herlinda John Work Phone: [facility] 09-01-2023 10:37-0400 Systolic blood pressure 142 mm[Hg] GASATERIA ATTENDANT-C Herlinda John Work Phone: [facility] 05-14-2023 13:29-0500 Body temperature 98.3 [degF] GASATERIA ATTENDANT-C Herlinda John Work Phone: [facility] 05-14-2023 13:29-0500 Diastolic blood pressure 81 mm[Hg] GASATERIA ATTENDANT-C Herlinda John Work Phone: [facility] 05-14-2023 13:29-0500 Heart rate 86 /min GASATERIA ATTENDANT-C Herlinda John Work Phone: [facility] 05-14-2023 13:29-0500 Respiratory rate 18 /min GASATERIA ATTENDANT-C Herlinda John Work Phone: [facility] 05-14-2023 13:29-0500 SaO2% (BldA) [Mass fraction] 96 % GASATERIA ATTENDANT-C Herlinda John Work Phone: [facility] 05-14-2023 13:29-0500 Systolic blood pressure 126 mm[Hg] GASATERIA ATTENDANT-C Herlinda John Work Phone: [facility] 05-14-2023 07:31-0500 Body height 154.94 cm GASATERIA ATTENDANT-C Herlinda John Work Phone: [facility] 05-14-2023 07:31-0500 Body mass index (BMI) [Ratio] 29.9 kg/m2 GASATERIA ATTENDANT-C Herlinda John Work Phone: [facility] 05-14-2023 07:31-0500 Body weight 72 kg JEAN Lopez Work Phone: [facility] 01-13-2023 09:14-0400 Body height 154.94 cm Mary Slarb FAMILY THERAPIST [facility]; [facility] Work Phone: 01-13-2023 09:14-0400 Body mass index (BMI) [Ratio] 28.91 kg/m2 Mary Slarb FAMILY THERAPIST [facility]; [facility] Work Phone: 01-13-2023 09:14-0400 Body surface area Derived from formula 1.69 m2 Mary Slarb FAMILY THERAPIST [facility]; [facility] Work Phone: 01-13-2023 09:14-0400 Body temperature 96.8 [degF] Mary Slarb FAMILY THERAPIST [facility]; [facility] Work Phone: Comment on above: Method: Temporal 01-13-2023 09:140400 Body weight 69.4 kg Mary Slarb FAMILY THERAPIST [facility]; [facility] Work Phone: 01-13-2023 09:14-0400 Diastolic blood pressure 82 mm[Hg] Mary Slarb FAMILY THERAPIST [facility]; [facility] Work Phone: Comment on above: Patient Position: Sitting; Cuff Location : Left Arm; Cuff Size: Standard 01-13-2023 09:14-0400 Heart rate 60 /min Mary Slarb FAMILY THERAPIST [facility]; [facility] Work Phone: Comment on above: Pattern: Regular 01-13-2023 09:14-0400 Respiratory rate 16 /min Mary Slarb FAMILY THERAPIST [facility]; [facility] Work Phone: Comment on above: Pattern: Unlabored 01-13-2023 09:14-0400 SaO2% (BldA) [Mass fraction] 98 % Mary Slarb FAMILY THERAPIST [facility]; [facility] Work Phone: Comment on above: Room air 01-13-2023 09:14-0400 Systolic blood pressure 124 mm[Hg] Mary Slarb FAMILY THERAPIST [facility]; [facility] Work Phone: Comment on above: Patient Position: Sitting; Cuff Location : Left Arm; Cuff Size: Standard 09-24-2022 13:51-0400 Body temperature 97.3 [degF] [facility] 09-24-2022 13:51-0400 Diastolic blood pressure 76 mm[Hg] [facility] 09-24-2022 13:51-0400 Heart rate 66 /min [facility] 09-24-2022 13:51-0400 Respiratory rate 16 /min [facility] 09-24-2022 13:51-0400 SaO2% (BldA) [Mass fraction] 97 % [facility] 09-24-2022 13:51-0400 Systolic blood pressure 128 mm[Hg] [facility] 09-24-2022 10:30-0400 Inhaled oxygen flow rate 4 L/min [facility] 09-24-2022 06:34-0400 Body height 154.94 cm [facility] 09-24-2022 06:34-0400 Body mass index (BMI) [Ratio] 28.7 kg/m2 [facility] 09-24-2022 06:34-0400 Body weight 69 kg [facility] 09-03-2022 10:33-0400 Body height 154.94 cm Mary Slarb FAMILY THERAPIST [facility]; [facility] Work Phone: 09-03-2022 10:33-0400 Body mass index (BMI) [Ratio] 28.55 kg/m2 Mary Slarb FAMILY THERAPIST [facility]; [facility] Work Phone: 09-03-2022 10:33-0400 Body surface area Derived from formula 1.68 m2 Mary Slarb FAMILY THERAPIST [facility]; [facility] Work Phone: 09-03-2022 10:33-0400 Body temperature 97.5 [degF] Mary Slarb FAMILY THERAPIST [facility]; [facility] Work Phone: Comment on above: Method: Temporal 09-03-2022 10:33-0400 Body weight 68.55 kg Mary Slarb FAMILY THERAPIST [facility]; [facility] Work Phone: 09-03-2022 10:33-0400 Diastolic blood pressure 80 mm[Hg] Mary Slarb FAMILY THERAPIST [facility]; [facility] Work Phone: Comment on above: Patient Position: Sitting; Cuff Location : Left Arm; Cuff Size: Standard 09-03-2022 10:33-0400 Heart rate 60 /min Mary Slarb FAMILY THERAPIST [facility]; [facility] Work Phone: Comment on above: Pattern: Regular 09-03-2022 10:33-0400 Respiratory rate 15 /min Mary Slarb FAMILY THERAPIST [facility]; [facility] Work Phone: Comment on above: Pattern: Unlabored 09-03-2022 10:33-0400 SaO2% (BldA) [Mass fraction] 99 % Mary Slarb FAMILY THERAPIST [facility]; [facility] Work Phone: Comment on above: Room air 09-03-2022 10:33-0400 Systolic blood pressure 128 mm[Hg] Mary Slarb FAMILY THERAPIST [facility]; [facility] Work Phone: Comment on above: Patient Position: Sitting; Cuff Location : Left Arm; Cuff Size: Standard 06-20-2022 09:01-0500 Body height 154.94 cm Zaida Herbert MA [facility]; [facility] Work Phone: 06-20-2022 09:01-0500 Body mass index (BMI) [Ratio] 29.66 kg/m2 Zaida Herbert MA [facility]; [facility] Work Phone: 06-20-2022 09:01-0500 Body surface area Derived from formula 1.7 m2 Zaida Herbert MA [facility]; [facility] Work Phone: 06-20-2022 09:01-0500 Body temperature 96 [degF] Zaida Herbert MA [facility]; [facility] Work Phone: 06-20-2022 09:01-0500 Body weight 71.22 kg Zaida Herbert MA [facility]; [facility] Work Phone: 06-20-2022 09:01-0500 Diastolic blood pressure 80 mm[Hg] Zaida Herbert MA [facility]; [facility] Work Phone: Comment on above: Patient Position: Sitting; Cuff Location : Left Arm; Cuff Size: Standard 06-20-2022 09:01-0500 Heart rate 83 /min Zaida Herbert MA [facility]; [facility] Work Phone: Comment on above: Pattern: Regular 06-20-2022 09:01-0500 Respiratory rate 16 /min Zaida Herbert MA [facility]; [facility] Work Phone: Comment on above: Pattern: Unlabored 06-20-2022 09:01-0500 SaO2% (BldA) [Mass fraction] 99 % Zaida Herbert MA [facility]; [facility] Work Phone: Comment on above: Room air 06-20-2022 09:01-0500 Systolic blood pressure 102 mm[Hg] Zaida Herbert MA [facility]; [facility] Work Phone: Comment on above: Patient Position: Sitting; Cuff Location : Left Arm; Cuff Size: Standard 06-06-2022 12:03-0500 Diastolic blood pressure 76 mm[Hg] Herlinda Lopez CNP Work Phone: [facility]; [facility] Work Phone: Comment on above: Patient Position: Sitting; Cuff Location : Left Arm; Cuff Size: Standard 06-06-2022 12:03-0500 Systolic blood pressure 132 mm[Hg] Herlinda Lopez CNP Work Phone: [facility]; [facility] Work Phone: Comment on above: Patient Position: Sitting; Cuff Location : Left Arm; Cuff Size: Standard 06-06-2022 11:42-0500 Body height 154.94 cm Zaida Herbert MA [facility]; [facility] Work Phone: 06-06-2022 11:42-0500 Body mass index (BMI) [Ratio] 31.18 kg/m2 Zaida Herbert MA [facility]; [facility] Work Phone: 06-06-2022 11:42-0500 Body surface area Derived from formula 1.74 m2 Zaida Herbert MA [facility]; [facility] Work Phone: 06-06-2022 11:42-0500 Body temperature 96.7 [degF] Zaida Herbert MA [facility]; [facility] Work Phone: 06-06-2022 11:42-0500 Body weight 74.84 kg Zaida Herbert MA [facility]; [facility] Work Phone: 06-06-2022 11:42-0500 Diastolic blood pressure 90 mm[Hg] Zaida Herbert MA [facility]; [facility] Work Phone: Comment on above: Patient Position: Sitting; Cuff Location : Left Arm; Cuff Size: Standard 06-06-2022 11:42-0500 Heart rate 78 /min Zaida Herbert MA [facility]; [facility] Work Phone: Comment on above: Pattern: Regular 06-06-2022 11:42-0500 Respiratory rate 18 /min Zaida Herbert MA [facility]; [facility] Work Phone: Comment on above: Pattern: Unlabored 06-06-2022 11:42-0500 SaO2% (BldA) [Mass fraction] 98 % Zaida Herbert MA [facility]; [facility] Work Phone: Comment on above: Room air 06-06-2022 11:42-0500 Systolic blood pressure 130 mm[Hg] Zaida Herbert MA [facility]; [facility] Work Phone: Comment on above: Patient Position: Sitting; Cuff Location : Left Arm; Cuff Size: Standard 07-25-2020 10:11-0500 BMI (Body Mass Index) 30.62 kg/m2 Marlon Friedman LPN [facility]; [facility] Work Phone: 07-25-2020 10:11-0500 Body Temperature 97.5 [degF] Marlon Friedman LPN [facility]; [facility] Work Phone: Comment on above: Method: Infrared 07-25-2020 10:110500 Body weight 73.51 kg Marlon Friedman LPN [facility]; [facility] Work Phone: 07-25-2020 10:11-0500 BP Diastolic 68 mm[Hg] Marlon Friedman LPN [facility]; [facility] Work Phone: Comment on above: Patient Position: Sitting; Cuff Location : Left Arm; Cuff Size: Standard 07-25-2020 10:11-0500 BP Systolic 158 mm[Hg] Marlon Friedman LPN [facility]; [facility] Work Phone: Comment on above: Patient Position: Sitting; Cuff Location : Left Arm; Cuff Size: Standard 07-25-2020 10:110500 BSA (Body Surface Area) 1.73 m2 Marlon Friedman LPN [facility]; [facility] Work Phone: 07-25-2020 10:11050 Height 154.94 cm Marlon Friedman LPN [facility]; [facility] Work Phone: 07-25-2020 10:11-0500 Pulse (Heart Rate) 77 /min Marlon Friedman LPN Comprehensiv e Internal Medicine; [facility] Work Phone: Comment on above: Pattern: Regular 07-25-2020 10:11-0500 Pulse Oximetry 99 % Kaylynn Ramirez [facility]; [facility] Work Phone: Comment on above: Room air 07-25-2020 10:11-0500 Respiratory Rate 16 /min Marlon Friedman LPN [facility]; [facility] Work Phone: Comment on above: Pattern: Unlabored 07-25-2020 10:11-0500 SaO2% (BldA) [Mass fraction] 99 % Marlon Friedman LPN Comprehensive Internal Medicine; [facility] Work Phone: Comment on above: Room air 07-02-2020 08:19-0500 BMI (Body Mass Index) 29.29 kg/m2 Marlon Friedman LPN [facility]; [facility] Work Phone: 07-02-2020 08:19-0500 Body weight 70.31 kg Marlon Friedman LPN [facility]; [facility] Work Phone: 07-02-2020 08:19-0500 BSA (Body Surface Area) 1.7 m2 Marlon Friedman LPN [facility]; [facility] Work Phone: 07-02-2020 08:19-0500 Height 154.94 cm Marlon Friedman LPN [facility]; [facility] Work Phone: 02-22-2020 07:54-0400 BMI (Body Mass Index) 29.49 kg/m2 Marlon Friedman LPN [facility] Work Phone: 02-22-2020 07:54-0400 Body Temperature 97.6 [degF] Marlon Friedman LPN [facility] Work Phone: Comment on above: Method: Infrared 02-22-2020 07:54-0400 Body weight 70.78 kg Marlon Friedman LPN [facility] Work Phone: 02-22-2020 07:54-0400 BP Diastolic 68 mm[Hg] Marlon Friedman LPN [facility] Work Phone: Comment on above: Patient Position: Sitting; Cuff Location : Left Arm; Cuff Size: Standard 02-22-2020 07:54-0400 BP Systolic 102 mm[Hg] Marlon Friedman LPN [facility] Work Phone: Comment on above: Patient Position: Sitting; Cuff Location : Left Arm; Cuff Size: Standard 02-22-2020 07:54-0400 BSA (Body Surface Area) 1.7 m2 Marlon Friedman LPN [facility] Work Phone: 02-22-2020 07:54-0400 Height 154.94 cm Marlon Friedman LPN [facility] Work Phone: 02-22-2020 07:54-0400 Pulse (Heart Rate) 94 /min Marlon Friedman LPN [facility] Work Phone: Comment on above: Pattern: Regular 02-22-2020 07:54-0400 Pulse Oximetry 99 % Kaylynn Ramirez [facility] Work Phone: Comment on above: Room air 02-22-2020 07:54-0400 Respiratory Rate 16 /min Marlon Friedman LPN [facility] Internal Medicine Work Phone: Comment on above: Pattern: Unlabored 02-22-2020 07:54-0400 SaO2% (BldA) [Mass fraction] 99 % Marlon Friedman LPN [facility]; [facility] Work Phone: Comment on above: Room air 10-14-2019 07:40-0400 BMI (Body Mass Index) 31.93 kg/m2 Marlon Friedman LPN [facility] Internal Medicine Work Phone: 10-14-2019 07:40-0400 Body Temperature 97.3 [degF] Marlon Friedman LPN [facility] Internal Medicine Work Phone: Comment on above: Method: Temporal 10-14-2019 07:40-0400 Body weight 76.66 kg Marlon Friedman LPN [facility] Work Phone: 10-14-2019 07:40-0400 BP Diastolic 68 mm[Hg] Marlon Friedman LPN [facility] Internal Medicine Work Phone: Comment on above: Patient Position: Sitting; Cuff Location : Left Arm; Cuff Size: Standard 10-14-2019 07:40-0400 BP Systolic 102 mm[Hg] Marlon Friedman LPN [facility] Internal Medicine Work Phone: Comment on above: Patient Position: Sitting; Cuff Location : Left Arm; Cuff Size: Standard 10-14-2019 07:40-0400 BSA (Body Surface Area) 1.76 m2 Marlon Friedman LPN [facility] Work Phone: 10-14-2019 07:40-0400 Height 154.94 cm Marlon Friedman LPN [facility] Medicine Work Phone: 10-14-2019 07:40-0400 Pulse (Heart Rate) 80 /min Marlon Friedman LPN [facility] Work Phone: Comment on above: Pattern: Regular 10-14-2019 07:40-0400 Pulse Oximetry 96 % Kaylynn Ashley [facility] Medicine Work Phone: Comment on above: Room air 10-14-2019 07:40-0400 Respiratory Rate 16 /min Marlon Friedman LPN [facility] Medicine Work Phone: Comment on above: Pattern: Unlabored 10-14-2019 07:40-0400 SaO2% (BldA) [Mass fraction] 96 % Marlon Friedman LPN [facility]; [facility] Work Phone: Comment on above: Room air 06-13-2019 16:30-0500 BMI (Body Mass Index) 31.37 kg/m2 Marlon Friedman LPN [facility] Internal Medicine Work Phone: 06-13-2019 16:30-0500 Body Temperature 97.8 [degF] Marlon Friedman LPN [facility] Internal Medicine Work Phone: Comment on above: Method: Temporal 06-13-2019 16:30-0500 Body weight 75.32 kg Marlon Friedman LPN [facility] Work Phone: 06-13-2019 16:30-0500 BP Diastolic 71 mm[Hg] Marlon Friedman LPN [facility] Internal Medicine Work Phone: Comment on above: Patient Position: Sitting; Cuff Location : Left Arm; Cuff Size: Standard 06-13-2019 16:30-0500 BP Systolic 120 mm[Hg] Marlon Friedman LPN [facility] Medicine Work Phone: Comment on above: Patient Position: Sitting; Cuff Location : Left Arm; Cuff Size: Standard 06-13-2019 16:30-0500 BSA (Body Surface Area) 1.75 m2 Marlon Friedman LPN [facility] Internal Medicine Work Phone: 06-13-2019 16:30-0500 Height 154.94 cm Marlon Friedman LPN [facility] Medicine Work Phone: 06-13-2019 16:30-0500 Pulse (Heart Rate) 71 /min Marlon Friedman LPN [facility] Work Phone: Comment on above: Pattern: Regular 06-13-2019 16:30-0500 Pulse Oximetry 98 % Kaylynn Ashley [facility] Medicine Work Phone: Comment on above: Room air 06-13-2019 16:30-0500 Respiratory Rate 16 /min Marlon Friedman LPN [facility] Internal Medicine Work Phone: Comment on above: Pattern: Unlabored 06-13-2019 16:30-0500 SaO2% (BldA) [Mass fraction] 98 % Marlon Friedman LPN [facility]; [facility] Work Phone: Comment on above: Room air 03-07-2019 08:39-0400 BMI (Body Mass Index) 30.8 kg/m2 Marlon Friedman LPN [facility] Work Phone: 03-07-2019 08:39-0400 Body Temperature 97.3 [degF] Marlon Friedman LPN [facility] Medicine Work Phone: Comment on above: Method: Temporal 03-07-2019 08:39-0400 Body weight 73.94 kg Marlon Friedman LPN [facility] Medicine Work Phone: 03-07-2019 08:39-0400 BP Diastolic 78 mm[Hg] Marlon Friedman LPN [facility] Internal Medicine Work Phone: Comment on above: Patient Position: Sitting; Cuff Location : Left Arm; Cuff Size: Standard 03-07-2019 08:39-0400 BP Systolic 130 mm[Hg] Marlon Friedman LPN [facility] Internal Medicine Work Phone: Comment on above: Patient Position: Sitting; Cuff Location : Left Arm; Cuff Size: Standard 03-07-2019 08:39-0400 BSA (Body Surface Area) 1.73 m2 Marlon Friedman LPN [facility] Medicine Work Phone: 03-07-2019 08:39-0400 Height 154.94 cm Marlon Friedman LPN [facility] Work Phone: 03-07-2019 08:39-0400 Pulse (Heart Rate) 67 /min Marlon Friedman LPN [facility] Work Phone: Comment on above: Pattern: Regular 03-07-2019 08:39-0400 Pulse Oximetry 97 % Kaylynn Ashley [facility] Work Phone: Comment on above: Room air 03-07-2019 08:39-0400 Respiratory Rate 16 /min Marlon Friedman LPN [facility] Work Phone: Comment on above: Pattern: Unlabored 03-07-2019 08:39-0400 SaO2% (BldA) [Mass fraction] 97 % Marlon Friedman LPN [facility]; [facility] Work Phone: Comment on above: Room air 11-01-2018 10:44-0400 BMI (Body Mass Index) 29.85 kg/m2 Yoly Johnson RN [facility] Work Phone: 11-01-2018 10:44-0400 Body Temperature 97.4 [degF] Yoly Johnson RN [facility] Work Phone: Comment on above: Method: Temporal 11-01-2018 10:44-0400 Body weight 71.67 kg Yoly Johnson RN [facility] Work Phone: 11-01-2018 10:44-0400 BP Diastolic 76 mm[Hg] Yoly Johnson RN [facility] Work Phone: Comment on above: Patient Position: Sitting; Cuff Location : Left Arm; Cuff Size: Standard 11-01-2018 10:44-0400 BP Systolic 124 mm[Hg] Yoly Johnson RN [facility] Work Phone: Comment on above: Patient Position: Sitting; Cuff Location : Left Arm; Cuff Size: Standard 11-01-2018 10:44-0400 BSA (Body Surface Area) 1.71 m2 Yoly Johnson RN [facility] Work Phone: 11-01-2018 10:44-0400 Height 154.94 cm Yoly Johnson RN [facility] Work Phone: 11-01-2018 10:44-0400 Pulse (Heart Rate) 93 /min Yoly Johnson RN [facility] Work Phone: Comment on above: Pattern: Regular 11-01-2018 10:44-0400 Pulse Oximetry 97 % Kaylynn Ramirez [facility] Work Phone: Comment on above: Room air 11-01-2018 10:44-0400 Respiratory Rate 16 /min Yoly Johnson RN [facility] Work Phone: Comment on above: Pattern: Unlabored 11-01-2018 10:44-0400 SaO2% (BldA) [Mass fraction] 97 % Yoly Johnson RN [facility]; [facility] Work Phone: Comment on above: Room air 11-01-2018 10:44-0400 Weight 71.67 kg Kaylynn Ramirez [facility] Work Phone: 03-23-2018 10:42-0500 BMI (Body Mass Index) 29.14 kg/m2 Carolyn Rojas CMA [facility] Work Phone: 03-23-2018 10:42-0500 Body Temperature 96.9 [degF] Carolyn Rojas CMA [facility] Work Phone: Comment on above: Method: Temporal 03-23-2018 10:42-0500 Body weight 69.97 kg Carolyn Rojas CMA [facility] Work Phone: 03-23-2018 10:42-0500 BP Diastolic 78 mm[Hg] Carolyn Rojas [employer]VANCED MANUFACTURING TECHNICIAN [facility] Work Phone: Comment on above: Patient Position: Sitting; Cuff Location : Left Arm; Cuff Size: Standard 03-23-2018 10:42-0500 BP Systolic 128 mm[Hg] Carolyn Rojas ADVANCED MANUFACTURING TECHNICIAN [facility] Work Phone: Comment on above: Patient Position: Sitting; Cuff Location : Left Arm; Cuff Size: Standard 03-23-2018 10:42-0500 BSA (Body Surface Area) 1.69 m2 Carolyn Rojas CMA [facility] Work Phone: 03-23-2018 10:42-0500 Height 154.94 cm Carolyn Rojas ADVANCED MANUFACTURING TECHNICIAN [facility] Work Phone: 03-23-2018 10:42-0500 Pulse (Heart Rate) 61 /min Carolyn Rojas CMA [facility] Work Phone: Comment on above: Pattern: Regular 03-23-2018 10:42-0500 Pulse Oximetry 99 % Kaylynn Ramirez [facility] Work Phone: Comment on above: Room air 03-23-2018 10:42-0500 Respiratory Rate 16 /min Carolyn Rojas CMA [facility] Work Phone: Comment on above: Pattern: Unlabored 03-23-2018 10:42-0500 SaO2% (BldA) [Mass fraction] 99 % Carolyn Rojas CMA [facility]; [facility] Work Phone: Comment on above: Room air 03-23-2018 10:42-0500 Weight 69.97 kg Kaylynn Ramirez [facility] Work Phone: 02-08-2018 15:26-0400 BMI (Body Mass Index) 29.14 kg/m2 Mily Chu [facility] Work Phone: 02-08-2018 15:26-0400 Body Temperature 98.2 [degF] Mily Chu [facility] Work Phone: Comment on above: Method: Temporal 02-08-2018 15:26-0400 Body weight 69.97 kg Mily Chu [facility] Work Phone: 02-08-2018 15:26-0400 BP Diastolic 68 mm[Hg] Mily Chu [facility] Work Phone: Comment on above: Patient Position: Sitting; Cuff Location : Left Arm; Cuff Size: Standard 02-08-2018 15:26-0400 BP Systolic 112 mm[Hg] Mily Chu [facility] Work Phone: Comment on above: Patient Position: Sitting; Cuff Location : Left Arm; Cuff Size: Standard 02-08-2018 15:26-0400 BSA (Body Surface Area) 1.69 m2 Mily Chu [facility] Work Phone: 02-08-2018 15:26-0400 Height 154.94 cm Mily Chu [facility] Work Phone: 02-08-2018 15:26-0400 Pulse (Heart Rate) 71 /min Mily Chu [facility] Work Phone: Comment on above: Pattern: Regular 02-08-2018 15:26-0400 Pulse Oximetry 98 % Kaylynn Ramirez [facility] Work Phone: Comment on above: Room air 02-08-2018 15:26-0400 Respiratory Rate 17 /min Mily Chu [facility] Work Phone: Comment on above: Pattern: Unlabored 02-08-2018 15:26-0400 SaO2% (BldA) [Mass fraction] 98 % Mily Chu [facility]; [facility] Work Phone: Comment on above: Room air 02-08-2018 15:26-0400 Weight 69.97 kg Kaylynn Ramirez [facility] Work Phone: 02-16-2017 09:44-0400 BMI (Body Mass Index) 29.85 kg/m2 Gayle Friedman [facility] Work Phone: 02-16-2017 09:44-0400 Body Temperature 98.4 [degF] Gayle Friedman [facility] Work Phone: 02-16-2017 09:44-0400 Body weight 71.67 kg Gayle Friedman [facility] Work Phone: 02-16-2017 09:44-0400 BP Diastolic 82 mm[Hg] Gayle Friedman [facility] Work Phone: Comment on above: Patient Position: Sitting; Cuff Location : Left Arm; Cuff Size: Standard 02-16-2017 09:44-0400 BP Systolic 127 mm[Hg] Gayle Friedman [facility] Work Phone: Comment on above: Patient Position: Sitting; Cuff Location : Left Arm; Cuff Size: Standard 02-16-2017 09:44-0400 BSA (Body Surface Area) 1.71 m2 Gayle Friedman [facility] Work Phone: 02-16-2017 09:44-0400 Height 154.94 cm Gayle Friedman [facility] Work Phone: 02-16-2017 09:44-0400 Pulse (Heart Rate) 75 /min Gayle Friedman [facility] Work Phone: Comment on above: Pattern: Regular 02-16-2017 09:44-0400 Pulse Oximetry 96 % Kaylynn Ramirez [facility] Work Phone: Comment on above: Room air 02-16-2017 09:44-0400 Respiratory Rate 16 /min Gayle Friedman [facility] Work Phone: Comment on above: Pattern: Unlabored 02-16-2017 09:44-0400 SaO2% (BldA) [Mass fraction] 96 % Gayle Friedman [facility]; [facility] Work Phone: Comment on above: Room air 02-16-2017 09:44-0400 Weight 71.67 kg Kaylynn Ramirez [facility] Work Phone: 01-27-2017 13:56-0400 BMI (Body Mass Index) 29.76 kg/m2 Mary Slarb FAMILY THERAPIST [facility] Work Phone: 01-27-2017 13:56-0400 Body Temperature 97.6 [degF] Mary Slarb FAMILY THERAPIST [facility] Work Phone: 01-27-2017 13:56-0400 Body weight 71.44 kg Mary Slarb FAMILY THERAPIST [facility] Work Phone: 01-27-2017 13:56-0400 BP Diastolic 72 mm[Hg] Mary Slarb FAMILY THERAPIST [facility] Work Phone: Comment on above: Patient Position: Sitting; Cuff Location : Left Arm; Cuff Size: Standard 01-27-2017 13:56-0400 BP Systolic 122 mm[Hg] Mary Slarb FAMILY THERAPIST [facility] Work Phone: Comment on above: Patient Position: Sitting; Cuff Location : Left Arm; Cuff Size: Standard 01-27-2017 13:56-0400 BSA (Body Surface Area) 1.71 m2 Mary Slarb FAMILY THERAPIST [facility] Work Phone: 01-27-2017 13:56-0400 Height 154.94 cm Mary Slarb FAMILY THERAPIST [facility] Work Phone: 01-27-2017 13:56-0400 Pulse (Heart Rate) 58 /min Mary Slarb FAMILY THERAPIST [facility] Work Phone: Comment on above: Pattern: Regular 01-27-2017 13:56-0400 Pulse Oximetry 98 % Kaylynn Ramirez [facility] Work Phone: Comment on above: Room air 01-27-2017 13:56-0400 Respiratory Rate 18 /min Mary Hernandez LPN [facility] Work Phone: Comment on above: Pattern: Unlabored 01-27-2017 13:56-0400 SaO2% (BldA) [Mass fraction] 98 % Mary Hernandez FAMILY THERAPIST [facility]; [facility] Work Phone: Comment on above: Room air 01-27-2017 13:56-0400 Weight 71.44 kg Kaylynn Ramirez [facility] Work Phone: 10-27-2016 08:47-0400 BMI (Body Mass Index) 30.99 kg/m2 Rama Garsia [facility] Work Phone: 10-27-2016 08:47-0400 Body Temperature 98 [degF] Rama Garsia [facility] Work Phone: Comment on above: Method: Temporal 10-27-2016 08:47-0400 Body weight 74.39 kg Rama Garsia [facility] Work Phone: 10-27-2016 08:47-0400 BP Diastolic 68 mm[Hg] Rama Garsia [facility] Work Phone: Comment on above: Patient Position: Sitting; Cuff Location : Left Arm; Cuff Size: Standard 10-27-2016 08:47-0400 BP Systolic 115 mm[Hg] Rama Garsia [facility] Work Phone: Comment on above: Patient Position: Sitting; Cuff Location : Left Arm; Cuff Size: Standard 10-27-2016 08:47-0400 BSA (Body Surface Area) 1.74 m2 Rama Garsia [facility] Work Phone: 10-27-2016 08:47-0400 Height 154.94 cm Rama Garsia [facility] Work Phone: 10-27-2016 08:47-0400 Pulse (Heart Rate) 65 /min Rama Garsia [facility] Work Phone: Comment on above: Pattern: Regular 10-27-2016 08:47-0400 Pulse Oximetry 97 % Kaylynn Ramirez [facility] Work Phone: Comment on above: Room air 10-27-2016 08:47-0400 Respiratory Rate 16 /min Rama Garsia [facility] Work Phone: Comment on above: Pattern: Unlabored 10-27-2016 08:47-0400 SaO2% (BldA) [Mass fraction] 97 % Rama Garsia [facility]; [facility] Work Phone: Comment on above: Room air 10-27-2016 08:47-0400 Weight 74.39 kg Kaylynn Ramirez [facility] Work Phone: 02-21-2016 11:09-0400 BMI (Body Mass Index) 31.37 kg/m2 Yoly Johnson RN [facility] Work Phone: 02-21-2016 11:09-0400 Body Temperature 98.1 [degF] Yoly Johnson RN [facility] Work Phone: Comment on above: Method: Temporal 02-21-2016 11:09-0400 Body weight 75.3 kg Yoly Johnson RN [facility] Work Phone: 02-21-2016 11:09-0400 BP Diastolic 72 mm[Hg] Yoly Johnson RN [facility] Work Phone: Comment on above: Patient Position: Sitting; Cuff Location : Left Arm; Cuff Size: Standard 02-21-2016 11:09-0400 BP Systolic 124 mm[Hg] Yoly Johnson RN [facility] Work Phone: Comment on above: Patient Position: Sitting; Cuff Location : Left Arm; Cuff Size: Standard 02-21-2016 11:09-0400 BSA (Body Surface Area) 1.75 m2 Yoly Johnson RN [facility] Work Phone: 02-21-2016 11:09-0400 Height 154.94 cm Yoly Johnson RN [facility] Work Phone: 02-21-2016 11:09-0400 Pulse (Heart Rate) 64 /min Yoly Johnson RN [facility] Work Phone: Comment on above: Pattern: Regular 02-21-2016 11:09-0400 Pulse Oximetry 97 % Kaylynn Ramirez [facility] Work Phone: Comment on above: Room air 02-21-2016 11:09-0400 Respiratory Rate 16 /min Yoly Johnson RN [facility] Work Phone: Comment on above: Pattern: Unlabored 02-21-2016 11:09-0400 SaO2% (BldA) [Mass fraction] 97 % Yoly Johnson RN [facility]; [facility] Work Phone: Comment on above: Room air 02-21-2016 11:09-0400 Weight 75.3 kg Kaylynn Ramirez [facility] Work Phone: 02-05-2016 10:53-0400 BMI (Body Mass Index) 31.55 kg/m2 Mary Hernandez LPN [facility] Work Phone: 02-05-2016 10:53-0400 Body Temperature 97.6 [degF] Mary Mary VELAZQUEZ [facility] Work Phone: 02-05-2016 10:53-0400 Body weight 75.75 kg Mary Macyrb MARCUS [facility] Work Phone: 02-05-2016 10:53-0400 BP Diastolic 78 mm[Hg] Mary Slarb FAMILY THERAPIST [facility] Work Phone: Comment on above: Patient Position: Sitting; Cuff Location : Left Arm; Cuff Size: Standard 02-05-2016 10:53-0400 BP Systolic 116 mm[Hg] Mary Macyrb FAMILY THERAPIST [facility] Work Phone: Comment on above: Patient Position: Sitting; Cuff Location : Left Arm; Cuff Size: Standard 02-05-2016 10:53-0400 BSA (Body Surface Area) 1.75 m2 Mary Mary VELAZQUEZ [facility] Work Phone: 02-05-2016 10:53-0400 Height 154.94 cm Mary Slamerlin VELAZQUEZ [facility] Work Phone: 02-05-2016 10:53-0400 Pulse (Heart Rate) 69 /min Mary Slamerlin VELAZQUEZ [facility] Work Phone: Comment on above: Pattern: Regular 02-05-2016 10:53-0400 Pulse Oximetry 98 % Kaylynn Kingjose [facility] Work Phone: Comment on above: Room air 02-05-2016 10:53-0400 Respiratory Rate 17 /min Mary Slamerlin VELAZQUEZ [facility] Work Phone: Comment on above: Pattern: Unlabored 02-05-2016 10:53-0400 SaO2% (BldA) [Mass fraction] 98 % Mary Hernandez LPN [facility]; [facility] Work Phone: Comment on above: Room air 02-05-2016 10:53-0400 Weight 75.75 kg Kaylynn Ramirez [facility] Work Phone: Encounters Encounter Date Encounter Type Care Provider Facility Start: 05-03-2025 ambulatory Mahesh Machado Facility :[facility] Start: 03-02-2025 End: 03-02-2025 ambulatory Herlinda Lopez Facility:[facility] Start: 02-08-2025 End: 02-08-2025 ambulatory Herlinda Lopez G[employer]IA ATTENDANT-C Work Phone: -Laboratory Start: 02-08-2025 End: 02-08-2025 Patient encounter procedure Herlinda Lopez GASATERIA ATTENDANT-C -Laboratory Work Phone: Start: 02-08-2025 End: 02-08-2025 ambulatory Herlinda Lopez Facility:[facility] Start: 08-25-2024 End: 08-25-2024 ambulatory Herlinda Lopez GASATERIA ATTENDANT-C Work Phone: [facility] Work Phone: Start: 08-25-2024 End: 08-25-2024 Patient encounter procedure Tanvi Michael GASATERIA ATTENDANT-C -[facility] Work Phone: Start: 08-25-2024 End: 08-25-2024 ambulatory Tanvi Rodriguez GASATERIA ATTENDANT Facility:[facility] Start: 08-22-2024 End: 08-22-2024 Patient encounter procedure Tanvi Michael GASATERIA ATTENDANT-C -[facility] Work Phone: Start: 08-22-2024 End: 08-22-2024 ambulatory Tanvi Rodriguez GASATERIA ATTENDANT Facility:[facility] Start: 08-17-2024 End: 08-17-2024 ambulatory Herlinda Lopez GASATERIA ATTENDANT-C Work Phone: [facility] Work Phone: Start: 08-17-2024 End: 08-17-2024 Patient encounter procedure Herlinda Lopez NP-C -[facility] Work Phone: Start: 08-17-2024 End: 08-17-2024 ambulatory Herlinda Lopez Facility:[facility] Start: 08-03-2024 End: 08-03-2024 ambulatory Herlinda Lopez GASATERIA ATTENDANT-C Work Phone: [facility] Work Phone: Start: 08-03-2024 End: 08-03-2024 Patient encounter procedure Herlinda Lopez GASATERIA ATTENDANT-C -Laboratory Work Phone: Start: 08-02-2024 End: 08-02-2024 Patient encounter procedure Herlidna Lopez GASATERIA ATTENDANT-C -[facility] Work Phone: Start: 08-02-2024 End: 08-03-2024 ambulatory Herlinda Lopez GASATERIA ATTENDANT-C Work Phone: [facility] Work Phone: Start: 09-15-2023 Non-patient / Non-visit GASATERIA ATTENDANT-C C donnie Lopez Work Phone: [facility] Start: 09-15-2023 End: 09-15-2023 ambulatory GASATERIA ATTENDANT-C Herlinda Lopez Work Phone: [facility] Work Phone: Start: 09-15-2023 End: 09-15-2023 Patient encounter procedure GASATERIA ATTENDANT-C Herlinda Lopez Work Phone: [facility] [facility] Work Phone: Start: 09-01-2023 End: 09-01-2023 Patient encounter procedure GASATERIA ATTENDANT-C Herlinda Lopez Work Phone: [facility] Work Phone: Start: 07-20-2023 End: 07-20-2023 ambulatory GASATERIA ATTENDANT-C Herlinda Lopez Work Phone: [facility] Work Phone: Start: 07-20-2023 End: 07-20-2023 Patient encounter procedure GASATERIA ATTENDANT-C Herlinda Lopez Work Phone: [facility] Work Phone: Start: 05-14-2023 End: 05-14-2023 Admission to same day surgery center GASATERIA ATTENDANT-C Herlinda Lopez Work Phone: [facility] Start: 05-14-2023 End: 05-14-2023 ambulatory GASATERIA ATTENDANT-C Herlinda Lopez Work Phone: [facility] Work Phone: Start: 04-30-2023 End: 04-30-2023 Non-patient / Non-visit GASATERIA ATTENDANT-C Herlinda Lopez Work Phone: [facility] Work Phone: Start: 01-13-2023 End: 01-23-2023 Office outpatient visit 15 minutes Herlinda Lopez XM1 TANK DRIVER Work Phone: [facility] Start: 01-13-2023 Review Herlinda Lopez XM1 TANK DRIVER Work Phone: [facility] Start: 01-09-2023 End: 01-09-2023 ambulatory GASATERIA ATTENDANT-C Herlinda Lopez Work Phone: [facility] Work Phone: Start: 01-09-2023 End: 01-09-2023 Patient encounter procedure GASATERIA ATTENDANT-C Herlinda Lopez Work Phone: [facility] Work Phone: Start: 01-01-2023 End: 01-01-2023 Patient encounter procedure GASATERIA ATTENDANT-C Herlinda Lopez Work Phone: [facility] Work Phone: Start: 12-02-2022 End: 12-02-2022 Discharged Recurring GASATERIA ATTENDANT-C Herlinda Lopez Work Phone: [facility] Work Phone: Start: 09-24-2022 End: 09-24-2022 Admission to same day surgery center [facility] Start: 09-24-2022 End: 09-24-2022 ambulatory [facility] Work Phone: Start: 09-12-2022 End: 09-12-2022 ambulatory [facility] Work Phone: Start: 09-12-2022 End: 09-12-2022 Patient encounter procedure [facility]Cat Scan, [facility] Start: 09-04-2022 Review Herlinda Lopez XM1 TANK DRIVER Work Phone: [facility] Start: 09-03-2022 End: 09-03-2022 Office consultation new/estab patient 30 min Herlinda John XM1 TANK DRIVER Work Phone: [facility] Start: 09-03-2022 End: 09-03-2022 Preprocedural examination done Mary Hernandez LPN [facility]; [facility] Work Phone: Start: 08-27-2022 End: 08-27-2022 Patient encounter procedure [facility] Start: 08-08-2022 ambulatory Kaylynn Ashley [facility] Internal Med Start: 06-23-2022 End: 06-23-2022 ambulatory [facility] Work Phone: Start: 06-23-2022 End: 06-23-2022 Patient encounter procedure [facility] Start: 06-20-2022 End: 06-20-2022 Office outpatient visit [address] [facility] Start: 06-10-2022 End: 06-10-2022 ambulatory [facility] Work Phone: Start: 06-10-2022 End: 06-10-2022 Patient encounter procedure [facility] Start: 06-06-2022 End: 06-16-2022 Office outpatient visit [address] [facility] Start: 05-25-2022 Review Kaylynn chapman [facility] Start: 05-08-2022 End: 05-08-2022 Patient encounter procedure [facility]Pre-Admission Testing Start: 07-25-2020 End: 07-25-2020 Periodic preventive med est patient 65yrs& older [address] [facility] Start: 07-02-2020 End: 07-02-2020 Office outpatient visit [address] [facility] Start: 02-22-2020 End: 02-22-2020 Office outpatient visit [address] [facility] Start: 10-14-2019 End: 10-14-2019 Office outpatient visit [address] [facility] Start: 10-07-2019 End: 10-07-2019 Annotation/Addendum Kaylynn [address] [employer] Processing Supervisor al Medicine Start: 10-06-2019 End: 10-06-[address] [employer] Super[employer] al Medicine Start: 07-29-2019 End: 07-29-2019 Annotation/Addendum Kayly[address] [facility] [employer] Super[employer] al Medicine Start: 07-26-2019 End: 07-26-2019 Annotation/Addendum [facility] [facility] [employer] Supervisor al Medicine Start: 06-14-2019 End: 06-14-2019 Office outpatient visit [address] [facility] Start: 06-08-2019 End: 06-08-2019 Annotation/Addendum [facility]ly[facility] [employer] Supervisor al Medicine Start: 03-07-2019 End: 03-07-2019 Office outpatient visit [address] [facility] Start: 03-07-2019 Review Kaylynn Rodriguez adela [facility] Start: 11-01-2018 End: 11-01-2018 Office outpatient visit 25 minutes Kaylynn Ramirez Rayna [facility] Start: 11-01-2018 Review Kaylynn Rodriguezens [place] [facility] Start: 08-26-2018 End: 08-26-2018 Annotation/Addendum Kaylynn Ashley [facility] [employer] Super[facility] al [facility] Start: 03-23-2018 End: 03-23-2018 Office outpatient visit [address] [facility] Start: 02-08-2018 End: 02-08-2018 Periodic preventive med est patient 65yrs& older [address] [facility] Start: 09-14-2017 End: 09-16-2017 Annotation/Addendum Kaylynn Ramirez Rayna [employer] Supervisor al Medicine Start: 02-16-2017 End: 02-16-2017 Office outpatient visit [address] [facility] Start: 01-27-2017 End: 01-27-2017 Patient encounter status Kaylynn Ramirez Rayna I nternal Medicine Start: 01-27-2017 End: 01-27-2017 Periodic preventive med est patient 40-64yrs Kaylynn Ramirez [facility] Start: 10-27-2016 End: 10-27-2016 Office outpatient visit [address] [facility] Start: 03-25-2016 End: 03-25-2016 Phone Encounter Kaylynn Ramirez Rayna [employer] Supervisor al Medicine Start: 02-21-2016 End: 02-22-2016 Patient encounter Kaylynn Ramirez Rayna [employer] Supervisor al Medicine Start: 02-05-2016 End: 02-05-2016 Initial preventive medicine new patient 40-64yrs [address] [facility] Start: 02-05-2016 End: 02-05-2016 Patient encounter status Kaylynn Ramirez Rayna I nternal Medicine Patient encounter status Marlon [...] Work Phone: Patient encounter status Mary Hernandez FAMILY THERAPIST [facility]; [facility] Work Phone: End: 01-13-2023 Preprocedural examination done Herlinda Lopez YARIEL Work Phone: [facility]; [facility] Work Phone: Procedures Date Procedure Procedure Detail Performing Clinician Start: 08-25-2024 Pelvic echography Herlinda John GASATERIA ATTENDANT-C Work Phone: Start: 08-17-2024 Screening mammography Herlinda Lopez GASATERIA ATTENDANT- C Work Phone: Start: 08-02-2024 Body Composition - Initial Herlinda Lopez GASATERIA ATTENDANT-C Work Phone: Start: 07-20-2023 Screening mammography GASATERIA ATTENDANT-C Herlinda Iza becfkord Work Phone: Start: 05-14-2023 Destructive procedure of vein GASATERIA ATTENDANT-C Herlinda John Work Phone: Start: 01-01-2023 End: 01-02-2023 Office Visit Report Procedure Note: See Note; NOTES: [facility] [address] [place] [address] OFFICE VISIT Date of Service: 01/01/23 MR#: [id number] Acct: [id number] Patient: NERISSA RG Rep #: [id number] : 1950 Provider: STANLEY Troncoso Age/Sex: 72/F Location: [facility] Status: Signed Employer Purchased Covid Test Note: Patient here today for Covid Testing, requested by their Employer. Assessment and Plan Assessment and Plan Orders: Orders POC Cepheid Covid, FluAB, RSV 01/01/23 01/02/23 0613 <Electronically signed by Roni ANGEL> Date Roni ANGEL Cosigner Signature: Date (if applicable) CC: Herlinda Lopez XM1 TANK DRIVER Work Phone: Start: 11-20-2022 End: 11-20-2022 Re-Evaluation - PT (1) Procedure Note: See Note; NOTES: [facility] [address] [place] [address] / REEVALUATION / MEDICARE RECERTIFICATION PHYSICAL THERAPY MR#: [id number] Acct: [id number] Name: NERISSA RG Rep #: [id number] : 1950 72 From: Giovanny Gomez DPT Referring Dr.: Dr. Quinn Melissa MD Status:REG RCR Insurance: MEDICARE PART A B AETNA SR SUPPLEMENT INS Re-Evaluation Intro: Dr. Quinn Melissa MD, It has been my pleasure to treat NERISSA RG over the last 14 visits for [...] do not hesitate to contact me at [phone] by phone or if you have questions or concerns regarding this new plan of care! Sincerely, Giovanny Gomez DPT <Electronically signed by Giovanny Gomez DPT> 11/20/22 1201 CC: JEAN Lopez; Dr. Quinn Melissa MD CLS Signed For Medicare only, by signing this I certify the plan of care. Physicians Signature Date Herlinda Lopez XM1 TANK DRIVER Work Phone: Start: 09-29-2022 End: 09-29-2022 Inital Evaluation (1) - PT Procedure Note: See Note; NOTES: [facility] [address] [place] [address] / REHABILITATION SERVICES INITIAL EVALUATION MR#: [id number] Acct: [id number] Name: NERISSA RG Rep #: [id number] : 1950 72 From: Giovanny Gomez DPT Referring Dr.: Dr. Quinn Melissa MD Status: RE G RCR Insurance: MEDICARE PART A B AETNA SR SUPPLEMENT INS Patient's Visit Information NERISSA RG is a 72 year old F referred to Physical Therapy by Dr. Quinn Melissa MD with a diagnosis of R TKA. Date of Evaluation: 09/24/22 Physical Therapist: Giovanny Gomez DPT - Visit Plan Frequency: 2-3x /Week Duration: [...] fever. 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 Pt. does have to be on [...] to be FAXED BACK to us at [phone] for Medicare purposes. For Medicare only, by signing this I certify the plan of care. Please let me know if there are questions or concerns regarding this plan of care. Physician Signature: _Date: <Electronically signed by Giovanny Gomez DPT> 09/29/22 0855 CC: JEAN Lopez; Dr. Quinn Melissa MD CLS Signed Herlinda Lopez [facility] Work Phone: Start: 09-24-2022 End: 09-24-2022 Knee 1 or 2 Views Procedure Note: See Note; NOTES: [facility] Imaging Services [address] [place] [address] Knee 1 or 2 Views MR#: [id number] Acct: [id number] Name: NERISSA RG Rep #: [id number] : 1950 F 72 From: Howard pacheco MD PCP: JEAN Figueroa Status: [facility] Study: Knee 1 or 2 Views Date of Exam: 09/24/22 Exam# [id number] Ordering Dr: Quinn Melissa MD STUDY: X-RAY [...] CC: JEAN Lopez; Dr. Quinn Melissa MD Mixed Signal Design Engineer: Signed Herlinda Lopez CNP Work Phone: Start: 09-24-2022 Radiologic examination of knee GASATERIA ATTENDANT-Dayanara Lopez Work Phone: Start: 09-24-2022 Total Knee Replacement Robotic Arm Raffy (Right) Start: 09-24-2022 End: 09-24-2022 Operative Report Procedure Note: See Note; NOTES: [facility] Medical Records Department [address] [place] [address] Operative Report 09/24/22 0733 MR#: [id number] Acct: [id number] Name: NERISSA RG Rep #: [id number] : 1950 72 From: Quinn Melissa MD PCP: JEAN Figueroa Status:REG [place] Location: [place] [address] Report of Operation Date of Procedure: 09/24/22 Pre-Operative Diagnosis: Right knee primary osteoarthritis Post-Operative Diagnosis: Right knee primary osteoarthritis Surgery/Procedure Performed:: Right minimally invasive robotic total knee replacement Description of Surgical Findings:: Stable knee with good patella tracking Surgeon: Quinn Meilssa skid road worker: Tj Owusu Type of Anesthesia: Spinal Anesthesiologist: Jayson Dent Special Medications: 2 g Ancef, 1 g TXA at incision, 1 g TXA closure, 10 mg Decadron, joint cocktail (5 mg Duramorph, 30 mL of 0.5% Ropivicaine, 1000 units of epinephrine, 30 mg of Toradol) Specimen's removed: Bony cuts Estimated Blood Loss (mL): 50 Fluids Replaced: 1000 ML Description of Procedure: Implants used: 1. Mallory size 3 triathlon cruciate retaining distal femoral press-fit component 2. [place] size 3 press-fit tritanium tibial baseplate 3. [place] X3 9 mm CS polyethylene 4. [place] X3 32 mm press-fit asymmetric patella Brief [...] and cement was mixed in a vacuum. Manifest Simplex cement was used. The wound was [...] then awakened from anesthesia, transferred to the [facility] and transferred to the PACU for recovery. Post op plan DVT ppx: ASA 81mg BID, thigh high compression stockings Follow up: in office in 2 weeks for wound check PT: to start POD #0 at hospital, outpatient PT should be arranged. My physician political science research assistant was a vital part of this case. [...] Mechan Device Prophylaxis: SCD's and Thigh High MARLO Hose VTE Pharm Prophylaxis ordered?: Yes 09/24/22 0903 <Electronically signed by Quinn Melissa MD> Cosigner Signature (if applicable): CC: GASATERIA ATTENDANT-C Herlinda Lopez; Dr. Quinn Melissa MD Signed Herlinda Lopez XM1 TANK DRIVER Work Phone: Start: 09-12-2022 End: 09-12-2022 Extremity Lower without Contra Procedure Note: See Note; NOTES: [facility] Imaging Services [address] [place] [address] Extremity Lower without Contra MR#: [id number] Acct: [id number] Name: NERISSA RG Rep #: [id number] : 1950 F 72 From: Jung cespedes MD PCP: JEAN Figueroa Status: REG CLI Study: Extremity Lower without Contra Date of Exam: 0 09/12/22 Exam# [id number] Ordering Dr: Quinn Melissa MD CT RIGHT [...] CC: JEAN Lopez; Dr. Quinn Melissa MD Mixed Signal Design Engineer: Signed Herlinda Lopez CNP Work Phone: Start: 09-12-2022 MRI of lower extremity Start: 09-09-2022 Nasal Screen MRSA/MSSA GASATERIA ATTENDANT-C Herlinda Lopez Work Phone: Start: 09-08-2022 End: 09-24-2022 History and Physical Exam Procedure Note: See Note; NOTES: [facility] Medical Records Department [address] [place] [address] History Physical Exam 09/08/22 1302 MR#: [id number] Acct: [id number] Name: NERISSA RG Rep #: [id number] : 1950 72 From: Tj ANGEL PA-C PCP: JEAN Figueroa Status:PRE IN Location: [facility] History and Physical History and Physical??? Patient Name: Nerissa Rg : 1950 From:??? TJ OWUSU PA-C??? 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 Personal Habits:??? [...] JEAN Lopez; JEANETTE Owusu Signed Herlinda Lopez XM1 TANK DRIVER Work Phone: Start: 06-23-2022 Screening mammography Start: 06-23-2022 End: 06-23-2022 SCRN MAMM (CAD)W/SAMANTHA BILAT Procedure Note: See Note; NOTES: [facility] Imaging Services [address] [place] [address] SCRN MAMM (CAD)W/SAMANTHA BILAT MR#: [id number] Acct: [id number] Name: NERISSA RG Rep #: [id number] : 1950 F 71 From: Jung cespedes MD PCP: JEAN Figueroa Status: [facility] Study: SCRN MAMM (CAD)W/SAMANTHA BILAT Date of Exam: 11/07 Exam# [id number] Ordering Dr: Herlinda Lopez MAMMOGRAPHY - BILATERAL [...] delay biopsy of a clinically suspicious abnormality. [id number] Electronically Signed: Jung Sarmiento MD at 14:35 EST Reading Location ID and State: [facility] , Service support , CC: Herlinda Lopez GASATERIA ATTENDANT; GASATERIA ATTENDANT-C Herlinda Lopez Mixed Signal Design Engineer: Signed Herlinda Lopez XM1 TANK DRIVER Work Phone: Start: 06-14-2021 End: 06-14-2021 PT D/C Summary (1) Procedure Note: See Note; NOTES: [facility] [address] [place] [address] / REHABILITATION SERVICES DISCHARGE SUMMARY MR#: [id number] Acct: [id number] Name: NERISSA RG Rep #: [id number] : 1950 70 From: Saskia Henry DPT Referring Dr.: Dr. Quinn Melissa MD Status: RE G RCR Insurance: MEDICARE PART A B AETNA SR SUPPLEMENT INS It has been my pleasure to treat NERISSA RG referred by Dr. Quinn Melissa MD, [...] Goal Progress: Goal Met Plan: Discharge to [facility]. If there are questions or concerns regarding this patient's physical therapy, please feel free to call me at [phone]. Thank you for the referral of this patient. Sincerely, Saskia Henry DPT Balance/Gait/Functional tests - Balance/Special Test Scores Lower Extremity Functional Score: 75 <Electronically signed by Saskia Henry DPT> 06/14/21 1148 CC: JEAN Ramirez; Dr. Quinn Melissa MD ELR Signed Kaylynn Ramirez Start: 05-27-2021 End: 05-27-2021 Re-Evaluation - PT (1) Procedure Note: See Note; NOTES: [facility] [place] [address] / REEVALUATION / MEDICARE RECERTIFICATION PHYSICAL THERAPY MR#: [id number] Acct: [id number] Name: NERISSA RG Rep #: [id number] : 1950 70 From: Saskia Henry DPT Referring Dr.: Dr. Quinn Melissa MD Status:REG RCR Insurance: MEDICARE PART A B AETNA SR SUPPLEMENT INS Dr. Quinn Melissa MD, It has been my pleasure to treat NERISSA RG over the last 9 visits for [...] without pain. She did come in to [employer] on Thursday and did her own exercises. [...] locomotor training, Neuromotor development, In an aquatic setting, Passive ROM, Active ROM, Dynamic Lumbar Stabilization, Mabel Exercises, Scapular Strength/Stabilization For the Purpose of:: To improve muscle performance and motor function Please do not hesitate to contact me at [phone] by phone or if you have questions or concerns regarding this new plan of care! Sincerely, Saskia Henry DPT <Electronically signed by Saskia Henry DPT> 05/27/21 0956 CC: JEAN Ramirez; Dr. Quinn Melissa MD ELR Signed For Medicare only, by signing this I certify the plan of care. Physicians Signature Date Kaylynn Ramirez Start: 05-02-2021 End: 05-02-2021 Inital Evaluation (1) - PT Comments: See Note; NOTES: [facility] [address] [place] [address] [address] [place] [address] / REHABILITATION SERVICES INITIAL EVALUATION MR#: [id number] Acct: [id number] Name: NERISSA RG Rep #: [id number] : 1950 70 From: Saskia Henry DPT Referring Dr.: Dr. Quinn Melissa MD Status: RE G R Insurance: MEDICARE PART A B AETNA SR SUPPLEMENT INS Patient's Visit Information NERISSA RG is a 70 year old F [...] comotor training, Neuromotor development, In an aquatic setting, Passive ROM, Active ROM, Dynamic Lumbar Stabilization, Mabel Exercises, Scapular Strength/Stabilization For the Purpose of:: To improve muscle performance and motor function Thank you for the opportunity to evaluate your patient. For Medicare and Medicare HMO plans, please review the plan of care and approve it. It will need to be FAXED BACK to us at [phone] for Medicare purposes. For Medicare only, by signing this I certify the plan of care. Please let me know if there are questions or concerns regarding this plan of care. Physician Signature: _Date: <Electronically signed by Saskia Henry DPT> 05/02/21 0856 CC: JEAN Ramirez; Dr. Quinn Melissa MD ELR Signed Kaylynn Ramirez XM1 TANK DRIVER Work Phone: Start: 04-21-2021 End: 04-21-2021 Urgent Care Visit Report Comments: See Note; NOTES: [facility] [address] [place] [address] OFFICE VISIT Date of Service: 04/21/21 MR#: [id number] Acct: [id number] Name: NERISSA RG Rep #: [id number] : 1950 Provider: JEAN vital Age/Sex: 70/F Location: [facility] Status: Signed Intake Vital Signs 04/21/21 09:13 [...] mg PO QPM 09/24/17 [History Confirmed 04/21/21] [facility] Medical History Bone fracture Cataracts, bilateral [...] HPI Chief Complaint: exposure to covid Details: NERISSA RG, is a 70 F who presents [...] to COVID-19 virus: Status: Acute Plan - JEAN Glover: Covid test negative, recommend rest, increase fluids, supportive care, follow-up with PCP if no improvement within 3 to 4 days. 04/21/21 1023 <Electronically signed by Ame PENA> Date Ame PENA Cosigner Signature: Date (if applicable) CC: JEAN Ramirez XM1 TANK DRIVER Work Phone: Start: 01-11-2020 End: 01-12-2020 SCREEN MAMM (CAD) W/SAMANTHA BILAT Comments: See Note; NOTES: [facility] Imaging Services [address] [place] [address] SCREEN MAMM (CAD) W/SAMANTHA BILAT MR#: [id number] Acct: [id number] Name: NERISSA RG Rep #: [id number] : 1950 F 69 From: Jung cespedes MD PCP: JEAN Nicolas Status: [facility] Study: SCREEN MAMM (CAD) W/SAMANTHA BILAT Date of Exam: 0 01/11/20 Exam# [id number] Ordering Dr: Kaylynn Ramirez MAMMOGRAPHY - BILATERAL [...] delay biopsy of a clinically suspicious abnormality. [id number] Electronically Signed: Jung Sarmiento, at 8:03 EDT , Service support , CC: JEAN Ramirez Mixed Signal Design Engineer: Signed Kaylynn Ramirez Work Phone: Start: 12-01-2018 End: 12-01-[address] w/CCTA Comments: See Note; NOTES: [facility] Imaging Services [address] [place] [address] w/CCTA MR#: [id number] Acct: [id number] Name: NERISSA RG Rep #: [id number] : 1950 F 68 From: Vicente Bonilla MD PCP: Kaylynn Ramirez NP Status: REG REF Study: Limited Chest CT w/CCTA Date of Exam: 12/01/18 Exam# [id number] Ordering Dr: Rebel Dudley MD HISTORY: HIGH [...] , CC: BANDAR Ramirez; Rebel Dudley MD Mixed Signal Design Engineer: Signed Kaylynn Ramirez Start: 08-24-2018 End: 08-25-2018 Dexa Bone Density Study Comments: See Note; NOTES: [facility] Imaging Services [address] [place] [address] Dexa Bone Density Study MR#: [id number] Acct: [id number] Name: NERISSA RG Rep #: [id number] : 1950 F 68 From: Jung Sarmiento MD PCP: Kaylynn Ramirez NP Status: REG CLI Study: Dexa Bone Density Study Date of Exam: 08/24/18 Exam# [id number] Ordering Dr: Kaylynn Ramirez GASATERIA ATTENDANT-C STUDY: DUAL ENERGY X-RAY ABSORPTIOMETRY / DXA [...] 3. National [employer] Foundation http://www.nof.org Electronically Signed: uJng Sarmiento, at 13:06 EDT , Service support , CC: BANDAR Ramirez Mixed Signal Design Engineer: Signed Kaylynn Ramirez Work Phone: Start: 08-24-2018 End: 09-01-2018 SCREENING MAMM (CAD), BILAT Comments: See Note; NOTES: [facility] Imaging Services [address] [place] [address] SCREENING MAMM (CAD), BILAT MR#: [id number] Acct: [id number] Name: NERISSA RG Rep #: [id number] : 1950 F 68 From: Jung Sarmiento MD PCP: Kaylynn Ramirez NP Status: [facility] Study: SCREENING MAMM (CAD), BILAT Date of Exam: 08/24/18 Exam# [id number] Ordering Dr: Kaylynn Ramirez GASATERIA ATTENDANT-C MAMMOGRAPHY - BILATERAL SCREENING REASON FOR EXAM: [...] delay biopsy of a clinically suspicious abnormality. [id number] Electronically Signed: Jung Sarmiento, at 14:59 EDT , Service support , CC: BANDAR Ramirez Mixed Signal Design Engineer: Signed Kaylynn Ramirez Work Phone: Start: 11-11-2017 End: 11-11-2017 Plastic Surgery Visit Report Comments: See Note; NOTES: [facility] [address] [place] [address] OFFICE VISIT Date of Service: 09/24/17 MR#: [id number] Acct: [id number] Name: NERISSA RG Rep #: [id number] : 1950 Provider: Venecia Unger MD Age/Sex: 67/F Location: [facility] Status: Signed with Addenda ADDENDUM by Venecia Unger MD on 11/11/17 at 1856 Addendum entered and electronically signed by Venecia Unger MD 11/11/17 18:56: For the coding, there was no charge for the office visit since I performed an office procedure. So the charge will be for the procedure which in this case was [address]. Assessment AND Plan Problems 1. Neoplasm of unspecified behavior of bone, soft tissue, and skin D49.2 Medications New: 11/11/17 1856 <Electronically signed by Venecia Unger MD> Date Venecia Unger MD cc: Kaylynn Ramirez GASATERIA ATTENDANT * Signed Intake Vital Signs09/24/17 Height 5 ft 1 in 09/24/17 Weight: 162 lb 2 oz Intake Visit Reasons: procedure - shave excision left nasal dorsum near tip Break Out Man Required: No Accompanied by: None Is patient [...] were included in a form from the [employer]. SUMMARY OF CASE [...] Office Procedures Shave Excision Procedure performed by: Venecia Unger Informed consent given: Yes Consent signed: [...] The CPT code for this procedure - 41273 11/11/17 1855 <Electronically signed by Venecia Unger MD> Date Venecia Unger MD Cosigner Signature: Date (if applicable) CC: Kaylynn Ramirez GASATERIA ATTENDANT Kaylynn Ramirez Appendectomy Sara Lj Comment on above: 1977 Appendectomy Yoly Johnson Comment on above: 1977 Appendectomy Marlon Bright Comment on above: 1977 Appendectomy Marlon Friedman Comment on above: 1977 Appendectomy Marlon Friedman Comment on above: 1977 Appendectomy Marlon Friedman Comment on above: 1977 Appendectomy Marlon Friedman Comment on above: 1977 Appendectomy Zaida Herbert MA Comment on above: 1977 Appendectomy Zaida Herbert MA Comment on above: 1977 Appendectomy Mary Slarb LP N Comment on above: 1977 Appendectomy Mary Slarb LP N Comment on above: 1977 Colonoscopy Sara Renick Comment on above: 2008 Colonoscopy Yoly Johnson Comment on above: 2008 Colonoscopy Marlon Bright Comment on above: 2008 Colonoscopy Marlon Friedman Comment on above: 2008 Colonoscopy Marlon Friedman Comment on above: 2008 Colonoscopy Marlon Friedman Comment on above: 2008 Colonoscopy Marlon Friedman Comment on above: 2008 Colonoscopy Zaida Herbert MA Comment on above: 2008 Colonoscopy Zaida Herbert MA Comment on above: 2008 Colonoscopy Mary Slarb LP N Comment on above: 2008 Colonoscopy Mary Slarb LP N Comment on above: 2008 Extraction of cataract Sara Renick Extraction of cataract Yoly Johnson Extraction of cataract Marlon Bright Extraction of cataract Marlon Friedman Extraction of cataract Marlon Friedman Extraction of cataract Marlon Friedman Extraction of cataract Marlon Elder Extraction of cataract Zaida Herbert MA Extraction of cataract Zaida Herbert MA Extraction of cataract Mary Slarb FAMILY THERAPIST Extraction of cataract Mary Slarb FAMILY THERAPIST Mammography Sara Renick Comment on above: 2014 Mammography Yoly Johnson Comment on above: 2014 Mammography Maroln Bright Comment on above: 2014 Mammography Marlon Elder Comment on above: 2014 Mammography Marlon Elder Comment on above: 2014 Mammography Marlon Elder Comment on above: 2014 Mammography Marlon Elder Comment on above: 2014 Mammography Zaida [place] Comment on above: 2014 Mammography Zaida [place] Comment on above: 2014 Mammography Mary Slarb LP N Comment on above: 2014 Mammography Mary Slarb LP N Comment on above: 2014 Microscopic examination of cervical Papanicolaou smear Sarasuzanne Castleiken Comment on above: Within Normal Limits. 2014 Microscopic examination of cervical Papanicolaou smear Yoly Johnson Comment on above: Within Normal Limits. 2014 Microscopic examination of cervical Papanicolaou smear Marlon Bright Comment on above: Within Normal Limits. 2014 Microscopic examination of cervical Papanicolaou smear Marlon Elder Comment on above: Within Normal Limits. 2014 Microscopic examination of cervical Papanicolaou smear Marlon Elder Comment on above: Within Normal Limits. 2014 Microscopic examination of cervical Papanicolaou smear Marlon Friedman Comment on above: Within Normal Limits. 2014 Microscopic examination of cervical Papanicolaou smear Marlon Friedman Comment on above: Within Normal Limits. 2014 Microscopic examination of cervical Papanicolaou smear Zaida Herbert MA Comment on above: Within Normal Limits. 2014 Microscopic examination of cervical Papanicolaou smear Zaida Herbert MA Comment on above: Within Normal Limits. 2014 Microscopic examination of cervical Papanicolaou smear Mary Slarb FAMILY THERAPIST Comment on above: Within Normal Limits. 2014 Microscopic examination of cervical Papanicolaou smear Mary Slarb FAMILY THERAPIST Comment on above: Within Normal Limits. 2014 Nasal Screen MRSA/MSSA Prosthetic arthroplasty of the hip Sara Calhoun Comment on above: left Dr Gibbs 2007 Total replacement of hip Sara Calhoun Comment on above: left Dr Gibbs 2007 Total replacement of hip Yoly Johnson Comment on above: left Dr Gibbs 2007 Total replacement of hip Marlon Bright Comment on above: left Dr Gibbs 2008 Total replacement of hip Marlon Elder Comment on above: left Dr Gibbs 2007 Total replacement of hip Marlon Elder Comment on above: left Dr Gibbs 2007 Total replacement of hip Marlon Elder Comment on above: left Dr Gibbs 2007 Total replacement of hip Marlon Elder Comment on above: left Dr Gibbs 2007 Total replacement of hip Zaida Herbert MA Comment on above: left Dr Gibbs 2007 Total replacement of hip Zaida Keonshelly RECIO Comment on above: left Dr Gibbs 2007 Total replacement of hip Mary Slarb FAMILY THERAPIST Comment on above: left Dr Gibbs 2007 Total replacement of hip Mary Slarb FAMILY THERAPIST Comment on above: left Dr Gibbs 2007 Total replacement of right knee joint Mary Slarb FAMILY THERAPIST Comment on above: 09/2022 Dr. Melissa Plan of Treatment Date Care Activity Detail Author Start: 05-14-2023 Anes veins of upper leg including exploration ANESTH UPPER LEG VEINS SURG [facility] Start: 05-14-2023 Endoven abltj incmpt nt vein xtr laser 1st vein ENDOVENOUS LASER 1ST VEIN [facility] Start: 05-14-2023 Endoven abltj incmpt nt vein xtr laser 2nd+ veins ENDOVENOUS LASER VEIN ADDON [facility] Start: 05-14-2023 Bedrest [facility] Start: 05-14-2023 Deep breathing and coughing exercises [facility] Start: 05-14-2023 Measuring intake and output [facility] Start: 05-14-2023 Medication education [facility] Start: 05-14-2023 Patient discharge [facility] Start: 05-14-2023 Patient education [facility] Start: 05-14-2023 Procedure discontinued [facility] Start: 05-14-2023 Provision of activit y privileges [facility] Start: 05-14-2023 Scheduling [facility] Start: 05-14-2023 Taking patient vital signs [facility] Start: 05-14-2023 Vital signs measurements [facility] Start: 05-14-2023 [facility] Start: 01-23-2023 Creatinine other source MICROA LB;CREAT RATION, RAND UR (37382) [facility]; [facility] Work Phone: Start: 01-13-2023 Procedure Education Eprescribe d prescriptions (G0378) [facility]; [facility] Work Phone: Start: 09-24-2022 Anesth open/surg art hrs total knee arthroplasty ANESTH KNEE ARTHROPLASTY [facility] Start: 09-24-2022 Arthrp kne condyle&p latu medial&lat compartments TOTAL KNEE ARTHROPLASTY [facility] Start: 09-24-2022 Injection aa&/strd femoral nerve cont nfs cath NJX AA&/STRD FEM NRV NFS IMG [facility] Start: 09-24-2022 Radiologic examinati on of knee Knee 1 or 2 Views [facility] Start: 09-24-2022 XR Knee 1 or 2 Views [facility] Start: 09-24-2022 Application of ice collar, cap or bag [facility] Start: 09-24-2022 Exercises [facility] Start: 09-24-2022 Incentive spirometry [facility] Start: 09-24-2022 Neurovascular assessment [facility] Start: 09-24-2022 Patient discharge [facility] Start: 09-24-2022 Patient education [facility] Start: 09-24-2022 Provision of activit y privileges [facility] Start: 09-24-2022 Recommendation to continue with treatment [facility] Start: 09-24-2022 Referral to service [facility] Start: 09-24-2022 Vital signs measurements [facility] Start: 09-24-2022 Wound care [facility] Start: 09-24-2022 [facility] Start: 09-03-2022 Blood count complete auto&auto difrntl wbc CBC, PLATELETS & AUT DIFF (96824) [facility]; [facility] Work Phone: Start: 09-03-2022 Comprehensive metabo lic panel METABOLIC PANEL, COMPREHENSIVE (89614) [facility]; [facility] Work Phone: Start: 09-03-2022 Lipid panel LIPID PANEL (8 0061) : in 3-4 months [facility]; [facility] Work Phone: Start: 09-03-2022 Procedure Education Eprescribe d prescriptions (G8553) [facility]; [facility] Work Phone: Start: 09-03-2022 Provider Instruction s for Treatment Follow up in 4 months [facility]; [facility] Work Phone: Start: 06-20-2022 C-reactive protein h igh sensitivity C-REACT PROT HIGH SENS(hsCRP) (82463) [facility]; [facility] Work Phone: Start: 06-20-2022 Hemoglobin glycosyla marlo a1c HGB A1C (53330) [facility]; [facility] Work Phone: Start: 06-20-2022 Lipid panel LIPID PANEL (47173) [facility]; [facility] Work Phone: Comment on above: in 6-8 wks Start: 06-20-2022 Procedure Education Eprescribe d prescriptions (G8553) [facility]; [facility] Work Phone: Start: 06-20-2022 Provider Instruction s for Treatment Follow up after consult [facility]; [facility] Work Phone: Start: 06-20-2022 Sedimentation rate r bc automated Sedimentation Rate-ESR (07266) [facility]; [facility] Work Phone: Start: 06-16-2022 Provider Instruction s for Treatment [facility]; [facility] Work Phone: Start: 06-06-2022 25 hydroxy includes fractions if performed CALCIFEDIOL (46703) [facility]; [facility] Work Phone: Start: 06-06-2022 Comprehensive metabo lic panel METABOLIC PANEL, COMPREHENSIVE (35352) [facility]; [facility] Work Phone: Start: 06-06-2022 Cyanocobalamin vitam in b-12 VITAMIN B12 AND FOLATES (26411) [facility]; [facility] Work Phone: Start: 06-06-2022 Procedure Education Eprescribe d prescriptions (G8553) [facility]; [facility] Work Phone: Start: 06-06-2022 Provider Instruction s for Treatment Follow up - Make appt after diagnostic tests [facility]; [facility] Work Phone: Start: 06-06-2022 Lipoprotein blood qu an numbers & subclasses NMR Profile (25044) [facility]; [facility] Work Phone: Start: 05-26-2022 Provider Instruction s for Treatment [facility]; [facility] Work Phone: Start: 05-26-2022 25 hydroxy includes fractions if performed CALCIFEDIOL (23936) [facility]; [facility] Work Phone: Start: 05-26-2022 Blood count complete auto&auto difrntl wbc CBC W/AUTO DIFF WBC (40402) [facility]; [facility] Work Phone: Start: 05-26-2022 Comprehensive metabo lic panel METABOLIC PANEL, COMPREHENSIVE (00956) [facility]; [facility] Work Phone: Start: 05-26-2022 Creatinine other source MICROA LB;CREAT RATION, RAND UR (51051) [facility]; [facility] Work Phone: Start: 05-26-2022 Lipid panel LIPID PANEL (32570) [facility]; [facility] Work Phone: Start: 05-25-2022 Gluc bld gluc mntr d ev cleared fda spec home use Blood Glucose , Office (63758) [facility]; [facility] Work Phone: Start: 05-25-2022 Hemoglobin glycosyla marlo a1c HgA1C , Office (85690) [facility]; [facility] Work Phone: Start: 05-25-2022 Procedure Education Eprescribe d prescriptions (G8553) [facility]; [facility] Work Phone: Start: 12-31-2020 Comprehensive metabo lic panel Metabolic Panel, Comprehensive (35204) [facility]; [facility] Work Phone: Start: 12-31-2020 Assay of thyroid stimulating hormone tsh TSH (THYROID STIMULATING HORMONE) (37938) [facility]; [facility] Work Phone: Start: 12-31-2020 TSH Qn TSH (THYROID STIMULATING HORMONE) (79700) [facility]; [facility] Work Phone: Start: 12-31-2020 Blood count complete automated CBC & PLATELETS (AUTO) (17650) [facility]; [facility] Work Phone: Start: 12-31-2020 Lipid panel LIPID PANEL (15656) [facility]; [facility] Work Phone: Start: 07-25-2020 Procedure Education Eprescribe d prescriptions (G8553) [facility]; [facility] Work Phone: Start: 07-25-2020 Provider Instruction s for Treatment [facility]; [facility] Work Phone: Start: 07-25-2020 Hepatitis c antibody HEPATITIS C ANTIBODY (46604) [facility]; [facility] Work Phone: Start: 07-02-2020 Procedure Education Eprescribe d prescriptions (G8553) [facility]; [facility] Work Phone: Start: 07-02-2020 Provider Instruction s for Treatment [facility]; [facility] Work Phone: Start: 02-22-2020 Procedure Education Eprescribe d prescriptions (G8553) [facility] Work Phone: Start: 02-22-2020 Provider Instruction s for Treatment Follow up in 4 months [facility] Work Phone: Start: 02-22-2020 Hepatic function panel HEPATIC FUNCTION PANEL (03920) [facility] Work Phone: Comment on above: May 2020 Start: 02-22-2020 HbA1c (Bld) [Mass fraction] HGB A1C (88002) [facility] Work Phone: Comment on above: May 2020 Start: 02-22-2020 Hemoglobin glycosyla marlo a1c HGB A1C (91696) [facility]; [facility] Work Phone: Comment on above: May 2020 Start: 02-22-2020 25 hydroxy includes fractions if performed CALCIFEDIOL (57539) [facility] Work Phone: Comment on above: May 2020 Start: 02-22-2020 Lipoprotein blood qu an numbers & subclasses NMR Profile (93891) [facility] Work Phone: Comment on above: May 2020 Start: 10-14-2019 Procedure Education Eprescribe d prescriptions (G8553) [facility] Work Phone: Start: 10-14-2019 Provider Instruction s for Treatment [facility] Work Phone: Start: 10-14-2019 Blood count complete auto&auto difrntl wbc CBC, Platelets & Auto Diff (02550) [facility] Work Phone: Comment on above: Feb 2020 Start: 10-14-2019 Comprehensive metabo lic panel Metabolic Panel, Comprehensive (74834) [facility] Work Phone: Comment on above: Feb 2020 Start: 10-14-2019 25 hydroxy includes fractions if performed CALCIFEDIOL (16820) [facility] Work Phone: Comment on above: Feb 2020 Start: 10-14-2019 Cobalamin (Vitamin B 12) [Mass/Vol] VITAMIN B12 AND FOLATES (19399) [facility] Work Phone: Comment on above: Feb 2020 Start: 10-14-2019 Cyanocobalamin vitam in b-12 VITAMIN B12 AND FOLATES (25643) [facility]; [facility] Work Phone: Comment on above: Feb 2020 Start: 10-14-2019 Lipid panel Lipid Panel (26231) [facility] Work Phone: Comment on above: Feb 2020 Start: 10-14-2019 HbA1c (Bld) [Mass fraction] HGB A1C (60087) [facility] Work Phone: Start: 10-14-2019 Hemoglobin glycosyla marlo a1c HGB A1C (66266) [facility]; [facility] Work Phone: Start: 10-06-2019 HbA1c (Bld) [Mass fraction] HGB A1C (43296) [facility] Work Phone: Start: 10-06-2019 Hemoglobin glycosyla marlo a1c HGB A1C (05861) [facility]; [facility] Work Phone: Start: 06-14-2019 Procedure Education Eprescribe d prescriptions (G8553) [facility] Work Phone: Start: 06-14-2019 Provider Instruction s for Treatment [facility] Work Phone: Start: 06-07-2019 Urinalysis qual/semiquant except immunoassays URINALYSIS (80472) [facility] Work Phone: Start: 06-07-2019 25 hydroxy includes fractions if performed CALCIFEDIOL (37875) [facility] Work Phone: Start: 06-07-2019 Lipoprotein blood qu an numbers & subclasses NMR Profile (60538) [facility] Work Phone: Start: 06-07-2019 Comprehensive metabo lic panel Metabolic Panel, Comprehensive (81977) [facility] Work Phone: Start: 06-07-2019 HbA1c (Bld) [Mass fraction] HGB A1C (16125) [facility] Work Phone: Start: 06-07-2019 Hemoglobin glycosyla marlo a1c HGB A1C (92411) [facility]; [facility] Work Phone: Start: 03-07-2019 Procedure Education Eprescribe d prescriptions (G8553) [facility] Work Phone: Start: 03-07-2019 Provider Instruction s for Treatment [facility] Work Phone: Start: 01-31-2019 Hemoglobin A1c/Hemoglobin.total mass fraction (Bld) HGB A1C (74001) [facility] Work Phone: Comment on above: before april appt Start: 01-31-2019 Hemoglobin glycosyla marlo a1c HGB A1C (85328) [facility]; [facility] Work Phone: Comment on above: before april appt Start: 01-31-2019 Lipid panel LIPID PANEL (38054) [facility] Work Phone: Start: 01-31-2019 25 hydroxy includes fractions if performed CALCIFEDIOL (57813) [facility] Work Phone: Comment on above: 1 week before medica re exam -- in about 3 mos Start: 01-31-2019 Blood count manual c ell count each CBC WITH MANUAL DIFF (85735) [facility] Work Phone: Start: 01-31-2019 Comprehensive metabo lic panel Metabolic Panel, Comprehensive (89454) [facility] Work Phone: Start: 01-31-2019 Lipoprotein blood qu an numbers & subclasses NMR Profile (39951) [facility] Work Phone: Start: 11-01-2018 Procedure Education Eprescribe d prescriptions (G8553) [facility] Work Phone: Start: 11-01-2018 Provider Instruction s for Treatment [facility] Work Phone: Start: 11-01-2018 Assay of thyroid stimulating hormone tsh TSH (45012) [facility]; [facility] Work Phone: Start: 11-01-2018 Thyrotropin Qn TSH (15630) [facility] Work Phone: Start: 11-01-2018 Assay of magnesium MAGNESIUM (69577) [facility]; [facility] Work Phone: Start: 11-01-2018 Magnesium mass conc MAGNESIUM (15889 ) [facility] Work Phone: Start: 11-01-2018 Comprehensive metabo lic panel Metabolic Panel, Comprehensive (28643) [facility] Work Phone: Start: 11-01-2018 Blood count manual c ell count each CBC WITH MANUAL DIFF (75809) [facility] Work Phone: Start: 11-01-2018 Comprehensive metabo lic panel Metabolic Panel, Comprehensive (25293) [facility] Work Phone: Start: 11-01-2018 Cobalamin (Vitamin B 12) mass conc VITAMIN B-12 (CYANOCOBALAMIN) (23495) [facility] Work Phone: Start: 11-01-2018 Cyanocobalamin vitam in b-12 VITAMIN B-12 (CYANOCOBALAMIN) (74020) [facility]; [facility] Work Phone: Start: 11-01-2018 25 hydroxy includes fractions if performed CALCIFEDIOL (26913) [facility] Work Phone: Comment on above: 1 week before medica re exam -- in about 3 mos Start: 11-01-2018 HbA1c (Bld) [Mass fraction] HGB A1C (49867) [facility] Work Phone: Comment on above: before april appt Start: 03-23-2018 Procedure Education Eprescribe d prescriptions (G8553) [facility] Work Phone: Start: 03-23-2018 Provider Instruction s for Treatment Follow up in 4 months [facility] Work Phone: Start: 03-23-2018 Lipid panel LIPID PANEL (27064) [facility] Work Phone: Comment on above: July 2018 Start: 03-23-2018 Hemoglobin A1c/Hemoglobin.total mass fraction (Bld) HGB A1C (93406) [facility] Work Phone: Comment on above: July 2018 Start: 03-23-2018 Hemoglobin glycosyla marlo a1c HGB A1C (12744) [facility]; [facility] Work Phone: Comment on above: July 2018 Start: 03-23-2018 Cobalamin (Vitamin B 12) mass conc VITAMIN B12 AND FOLATES (63625) [facility] Work Phone: Comment on above: July 2018 Start: 03-23-2018 Cyanocobalamin vitam in b-12 VITAMIN B12 AND FOLATES (67353) [facility]; [facility] Work Phone: Comment on above: July 2018 Start: 03-23-2018 25 hydroxy includes fractions if performed CALCIFEDIOL (75039) [facility] Work Phone: Comment on above: July 2018 Start: 02-08-2018 Procedure Education Eprescribe d prescriptions (G8553) [facility] Work Phone: Start: 02-08-2018 Provider Instruction s for Treatment [facility] Work Phone: Start: 02-16-2017 Procedure Education Eprescribe d prescriptions (G8553) [facility] Work Phone: Start: 02-16-2017 Provider Instruction s for Treatment [facility] Work Phone: Start: 02-16-2017 Hemoglobin A1c/Hemoglobin.total mass fraction (Bld) HGB A1C (99199) [facility] Work Phone: Comment on above: May 2017 Start: 02-16-2017 Hemoglobin glycosyla marlo a1c HGB A1C (82346) [facility]; [facility] Work Phone: Comment on above: May 2017 Start: 01-27-2017 Provider Instruction s for Treatment [facility] Work Phone: Start: 10-27-2016 Procedure Education Eprescribe d prescriptions (G8553) [facility] Work Phone: Start: 10-27-2016 Provider Instruction s for Treatment Follow up in 3 months [facility] Work Phone: Start: 10-27-2016 Urine albumin quantitative MICROALBUMIN: CREATININE RATIO (38193) AND (53079) [facility] Work Phone: Comment on above: Today Start: 10-27-2016 Urinalysis qual/semiquant except immunoassays URINALYSIS (01000) [facility] Work Phone: Comment on above: today Start: 10-27-2016 Glucose mass conc GLUCOSE (99982) [facility] Work Phone: Comment on above: Jan 2017 Start: 10-27-2016 Glucose quantitative blood xcpt reagent strip GLUCOSE (33259) [facility]; [facility] Work Phone: Comment on above: Jan 2017 Start: 10-27-2016 Hemoglobin A1c/Hemoglobin.total mass fraction (Bld) HGB A1C (42188) [facility] Work Phone: Comment on above: Jan 2017 Start: 10-27-2016 Hemoglobin glycosyla marlo a1c HGB A1C (87725) [facility]; [facility] Work Phone: Comment on above: Jan 2017 Start: 10-27-2016 25 hydroxy includes fractions if performed CALCIFEDIOL (60929) [facility] Work Phone: Comment on above: Jan 2017 Start: 10-27-2016 Lipid panel LIPID PANEL (65847) [facility] Work Phone: Comment on above: Jan 2017 Start: 02-21-2016 Procedure Education Eprescribe d prescriptions (G8553) [facility] Work Phone: Start: 02-21-2016 Assay of magnesium MAGNESIUM (76016) [facility]; [facility] Work Phone: Start: 02-21-2016 Magnesium mass conc MAGNESIUM (92741 ) [facility] Work Phone: Start: 02-21-2016 Assay of thyroid stimulating hormone tsh TSH (THYROID STIMULATING HORMONE) (77900) [facility]; [facility] Work Phone: Start: 02-21-2016 Thyrotropin Qn TSH (THYROID STIMULATING HORMONE) (94200) [facility] Work Phone: Start: 02-21-2016 25 hydroxy includes fractions if performed CALCIFEDIOL (14824) [facility] Work Phone: Start: 02-21-2016 Cobalamin (Vitamin B 12) mass conc VITAMIN B12 AND FOLATES (75935) [facility] Work Phone: Start: 02-21-2016 Cyanocobalamin vitam in b-12 VITAMIN B12 AND FOLATES (36135) [facility]; [facility] Work Phone: Start: 02-21-2016 Hemoglobin A1c/Hemoglobin.total mass fraction (Bld) HGB A1C (59944) [facility] Work Phone: Start: 02-21-2016 Hemoglobin glycosyla marlo a1c HGB A1C (64468) [facility]; [facility] Work Phone: Start: 02-21-2016 Lipid panel LIPID PANEL (92422) [facility] Work Phone: Start: 02-21-2016 Comprehensive metabo lic panel METABOLIC PANEL, COMPREHENSIVE (88050) [facility] Work Phone: Start: 02-05-2016 Provider Instruction s for Treatment [facility] Work Phone: Patient referral [facility] Work Phone: US Pelvis [facility] Work Phone: [facility] Work Phone: [facility] Work Phone: [facility] Work Phone: [facility] Work Phone: [facility] Work Phone: [facility] Work Phone: [facility] Work Phone: [facility]; [facility] Work Phone: [facility]; [facility] Work Phone: [facility]; [facility] Work Phone: [facility]; [facility] Work Phone: Immunizations Immunization Date Immunization Notes Care Provider [facility] 03-07-2024 influenza, seasonal, injectable, preservative free Herlinda John GASATERIA ATTENDANT-C Work Phone: [facility] 04-02-2023 influenza, injectabl e, quadrivalent, preservative free GASATERIA ATTENDANT-C Herlinda John Work Phone: [facility] 02-14-2022 influenza, injectabl e, quadrivalent, preservative free GASATERIA ATTENDANT-C Herlinda John Work Phone: [facility] 02-14-2022 influenza, seasonal, injectable [facility] 03-29-2021 Covid (Moderna) [facility] 02-20-2021 influenza, injectabl e, quadrivalent, preservative free GASATERIA ATTENDANT-C Herlinda John Work Phone: [facility] 02-20-2021 influenza, seasonal, injectable [facility] 06-12-2020 COVID-19 (Moderna) [facility]; [facility] Work Phone: 05-15-2020 Covid (Moderna) [facility] 04-17-2020 COVID-19 (Moderna) [facility]; [facility] Work Phone: 02-22-2020 influenza, injectabl e, quadrivalent, preservative free GASATERIA ATTENDANT-C Herlinda John Work Phone: [facility] 02-22-2020 influenza, seasonal, injectable [facility] 01-20-2020 zoster vaccine, live Kaylynn Ramirez [facility] Work Phone: 08-10-2019 pneumococcal conjuga te vaccine, 7 valent Kaylynn Ramirez [facility] [employer] [facility] Work Phone: 08-10-2019 zoster vaccine, live Kaylynn Ramirez [facility] Work Phone: 03-08-2019 influenza, injectabl e, quadrivalent, preservative free GASATERIA ATTENDANT-C Herlinda John Work Phone: [facility] 03-08-2019 influenza, seasonal, injectable [facility] 03-01-2018 influenza, injectabl e, quadrivalent, preservative free GASATERIA ATTENDANT-C Herlinda John Work Phone: [facility] 03-01-2018 influenza, seasonal, injectable [facility] 02-15-2018 influenza, seasonal, injectable [facility] [employer] Super[facility] Work Phone: 02-20-2017 influenza, injectabl e, quadrivalent, preservative free GASATERIA ATTENDANT-C Herlinda John Work Phone: [facility] 02-20-2017 influenza, seasonal, injectable [facility] 02-14-2016 influenza, injectabl e, quadrivalent, preservative free GASATERIA ATTENDANT-C Herlinda John Work Phone: [facility] 02-14-2016 influenza, seasonal, injectable [facility] 10-17-2015 TB Skin Test, Intradermal Kaylynn Ramirez [facility] [employer] [facility] Work Phone: 05-18-2015 influenza, seasonal, injectable Kaylynn Ramirez [facility] [employer] [facility] Work Phone: 05-18-2009 TD(adult) unspecifie d formulation Kaylynn Ramirez [facility] [employer] [facility] Work Phone: 05-18-2009 tetanus and diphther ia toxoids, adsorbed, preservative free, for adult use (5 Lf of tetanus toxoid and 2 Lf of diphtheria toxoid) Kaylynn Ramirez [facility] [employer] [facility] Work Phone: Payers Date Payer Category Payer Private Health Insurance [id number] 2024 Self-pay [id number] 2024 Self-pay [id number] 2024 Medicare [id number] 2020 Medicare [id number] 2020 Private Health Insurance CLI [id number] 2019 Unknown [id number] 1950 Unknown [id number] 2.16.84 [id number] Unknown Unknown [id number] Unknown [id number] 2.16.8 [id number] Unknown [id number] 2.16.8 [id number] Unknown [id number] 2.16.8 [id number] Unknown [id number] 2.16.8 [id number] Unknown [id number] 2.16.8 [id number] Unknown [id number] 2.16.8 [id number] Unknown [id number] 2.16.8 [id number] Unknown [id number] 2.16.8 [id number] Social History Date Type Detail Facility Alcohol use: Never smoker [facility] Work Phone: Comment on above: 1-2 times week Exercise [facility] Work Phone: Comment on above: 4-5 times weekly RN- PRN in the OR Living Situation: Lives alone. [facility] Work Phone: Tobacco use: Never smoker. [facility] Work Phone: Alcohol use: Alcohol use: [facility]; [facility] Work Phone: Comment on above: 1-2 times week Living Situation: Living Situation: [facility]; [facility] Work Phone: Tobacco use: Tobacco use: [facility]; [facility] Work Phone: Start: 05-08-2022 End: 09-01-2023 Tobacco smoking status NHIS Unknown if ever smoked [facility] Start: 1950 Sex Assigned At Female [facility] Start: 01-05-2024 Tobacco smoking status NHIS Never smoked tobacco (finding) [facility] Start: 08-11-2024 End: 08-30-2024 Sex Female (finding) [facility] Sex Female [facility] NEGATED: Highlighted row [facility] Medical Equipment Procedure Code Equipment Code Equipment Origin al Text Equipment Identifier Dates ([id number]) Metal-backed pat loyd prosthesis ()[id number] [id number] FDA Start: 09-24-2022 ([id number]) Coated knee femu r prosthesis ()[id number] [id number] FDA Start: 09-24-2022 ([id number]) Coated knee tibi a prosthesis ()[id number] [id number] FDA Start: 09-24-2022 Orthopaedic ceme nt, non-antimicrobial ()[id number] [id number] FDA Start: 09-24-2022 ([id number]) Tibial insert ()[id number] [id number] FDA Start: 09-24-2022 Goals Date Patient Goal Desired Activity /State Functional Status Date Assessment Result Facility 09-24-2022 Functional status With Assist of 1 [facility] Work Phone: Mental Status Date Assessment Result Facility 05-14-2023 Cognitive function Voice/Name;Touch/Shaki ng [facility] Work Phone: 09-24-2022 Cognitive function Voice/Name [facility] Work Phone: Clinical Notes 09-24-2022 to 08-25-2024 Note Date & Type Note Facility 08-25-2024 Radiology Diagnostic study note [facility] Imaging Services [address] [place] [address] Pelvic w/ Transvaginal MR#: [id number] Acct: [id number] Name: NERISSA RG Rep #: [id number] : 1950 F 74 From: Danika Gibbons DO PCP: JEAN Figueroa Status: REG C Study:Pelvic w/ Transvaginal Date of Exam: 08/25/24 Exam# [id number] Ordering Dr: Tanvi Rodriguez GASATERIA ATTENDANT GASATERIA ATTENDANT-C PROCEDURE: Pelvic ultrasound, transabdominal and transvaginal. 08/25/2024 REASON FOR EXAM: Postmenopausal bleeding. TECHNIQUE: Transabdominal and transvaginal ultrasound images of the female pelvis were obtained. COMPARISON: None available FINDINGS: Included portions of the urinary bladder show no specific abnormality. The uterus is retroverted on transvaginal images, measuring 6.0 x 3.4 x 2.7 cm. Transvaginal images were obtained to better visualize pelvic structures. No discrete cervical mass. There is a 1.5 cm isoechoic probable fibroid of the posterior fundus. The ovaries are not demonstrated on the provided images. No concerning adnexal mass lesion or free pelvic fluid. Endovaginal measurement of the endometrium is 2 mm. US/Pelvic w/ Transvaginal IMPRESSION: 1.5 cm probable fibroid of the posterior fundus. The endometrium measures 2 mm, within normal limits for a postmenopausal woman. Nonvisualization of the ovaries. No concerning adnexal mass or free pelvic fluid. Reading Location: [facility] CC: JEAN Lopez; JEAN Rodriguez ~ Mixed Signal Design Engineer: Signed [facility] 08-22-2024 Evaluation note Diagnosis Onset Date Resolution Postmenopausal bleeding acute A pril 2024 11:32am Stenosis, cervix acute August 11:32am [facility] Work Phone: 1([phone]) 829-253212-28-2023 Discharge summary Author Tyler Donahue [facility] May 14, 2023 11:28am Note Date/Time May 14, 2023 11:28am [facility] Medical Records Department [address] [place] [address] Instructions for Home/Discharge Instructions 05/14/23 1124 MR#: [id number] Acct: [id number] Name: NERISSA RG Rep #:[id number] : 1950 72 From: Tyler Ayala PCP: JEAN Figueroa Status:REG S DC Discharge Instructions Diet Discharge Diet: No restrictions Activity Discharge Activity: May Not Drive May shower in (days): 2 Weight Bearing Status: Weight bearing as tolerated Lifting Restrictions: 10-15 pounds Keep extremity elevated above heart level: Left Leg Dressing / Incision Call your doctor if your incision/area has: Sudden Increased Bleeding Call your doctor if you observe: Shortness of breath, Chest pain and Uncontrolled pain Suture Line Care: Avoid Pulling/Pushing Remove Dressing in: 2 days (MAY SHOWER AFTER 48 HOURS. REWRAP WITH NATHAN FROM BASE OF TOES TO UPPER THIGH DAILY UNTIL SEEN IN THE OFFICE.) Follow Up Care Please Follow Up With: Tyler Donahue MD When: 10-14 DAYS Test Results: Test results from this visit will be discussed in further detail at your follow- up appointment, if applicable. Discharge Plan Admission Attending Provider: Tyler Donahue Primary Care Provider: Herlinda Lopez Discharge Orders/Prescriptions Prescriptions: No Action vitamin D3-vitamin K2 125-90 mcg Capsule 1 cap PO DAILY pravastatin 40 mg Tablet 40 mg PO QHS ibuprofen [Advil] 200 mg Tablet 600 mg PO Q6H PRN (Reason: Pain) Referrals / Follow Up: Herlinda Lopez NP-C [Primary Care Provider] - Disposition Disposition (needs filled in before D/C Order can be placed): Home, Self Care 05/14/23 1128<Electronically signed by Tyler Donahue MD>Tyler Donahue MD CC: GASATERIA ATTENDANT-C Herlinda Lopez ~ Signed [facility] Work Phone: 1(675) 993-640712-28-2023 History and physical note Author Tyler Donahue [facility] May 14, 2023 8:15am Note Date/Time May 10, 2023 10:51am [facility] Medical Records Department [address] [place] [address] History & Physical Exam 05/10/23 1047 MR#: [id number] Acct: [id number] Name: NERISSA RG Rep #:[id number] : 1950 72 From: Tyler Ayala PCP: JEAN Figueroa Status:REG S DC Location: [place] [address] HPI - General General Date of Admission: 05/14/23 Date of Service: 05/14/23 Chief Complaint: Chronic venous insufficiency, varicose veins with inflammation,leg pain - left lower extremity HPI Narrative NERISSA RG, is a 72 F who presents with a long history of varicose vein diseasein her lower extremities. She experiences pain, discomfort, and tenderness in her lower extremities. This has been ongoing for approximately 40 years. She denies significant swelling. She has had an episode of superficial thrombophlebitis in the right lower extremity many years ago. She is active. She sleeps on a flat surface at night. She has previously undergone injection sclerotherapy in the right lower extremity many years ago, following which she experienced an episode of superficial thrombophlebitis. Venous duplex examination has been performed, revealing incompetence of the left great saphenous vein, the left small saphenous vein, and the left vein of Giacomini. The implications of this diagnosis have been discussed with the patient in detail. The options of management have been fully explained. Conservative treatment measures have been implemented for many months, including leg elevation, avoidance of idle standing and sitting, graduated compression stockings, weight control measures, active lifestyle, afeo-zng-xyiwibl analgesics, etc. Despite these measures, the patient has remained symptomatic, with symptoms which have adversely affected daily activities, quality of life, and job functions. [facility] Medical History Alcohol use Arthritis Bladder disease Bone fracture Chronic venous insufficiency Cyst High cholesterol History of irregular heartbeat History of pain when walking Leg cramps Leg pain, left Non-smoker Osteoarthritis Post-menopausal Varicose veins of left lower extremity with inflammation Home Medications vitamin D3 125 mcg (5,000 unit)-vitamin K2 90 mcg capsule 1 cap PO DAILY SUPPLEMENT 05/08/22 [History Last Taken Unknown] ibuprofen 200 mg tablet (Advil) 600 mg PO Q6H PRN Pain 09/10/22 [History Last Taken Unknown] pravastatin 40 mg tablet 40 mg PO QHS CHOLESTEROL 09/10/22 [History Last Taken Unknown] Allergy/AdvReac Type Severity Reaction Status Date / Time No Known Allergies Allergy Verified 04/29/23 08:38 Family History Mother A-fib Heart disease Hypertension High cholesterol Father Arthritis Pre-diabetes Hypertension High cholesterol Aunt Breast cancer Chronic lymphocytic leukemia Uncle Chronic lymphocytic leukemia Surgical History History of appendectomy History of cataract removal with insertion of prosthetic lens History of total hip replacement Hx of total knee arthroplasty Social History Smoking Status: Never smoker alcohol intake: current substance use type: does not use additional social history: DOES USE ASPIRIN DOES USE IBUPROFEN Physical Exam Const alert, oriented x3, no apparent distress and well nourished General Appearance: cooperative and well developed Orientation / Consciousness: awake, oriented to person, oriented to place and oriented to time HEENT normocephalic and head/scalp atraumatic Head and Scalp: normal to inspection, normocephalic and atraumatic External Ear: external ears normal Eyes PERRL and EOMs intact bilaterally General Eye: normal appearance of both eyes Neck General: trachea midline Resp normal respiratory effort, normal air movement, no retractions and no use of accessory muscles Effort and Inspection: able to speak in complete sentences Cardio regular rate GI non-distended Extremity normal capillary refill, no clubbing, cyanosis or edema and no calf tenderness Extremity Narrative: Lower extremities are warm and well-perfused. No significant swelling is noted. There are no open wounds or ulcerations. Multiple large varicosities are notedin the lower extremities bilaterally. General Extremity: Negative for clubbing or cyanosis Skin General Skin Exam: no breakdown Rashes: no rashes Neuro oriented x3, CN's II-XII intact bilaterally, no focal motor deficits and no sensory deficits noted Speech: speech normal Psych thought process normal, cooperative and affect normal Appearance: grossly normal and appropriate Attitude: calm Activity / Motor Behavior: appropriate eye contact Speech: normal speech Mood & Affect: euthymic mood Thought Process: normal thought process Thought Content: normal thought content Attention / Concentration: attention grossly intact Results Lab / Micro Data 04/30/23 09:54 04/30/23 09:54 Assessment & Plan Assessment/Plan (1) Chronic venous insufficiency: (2) Varicose veins of left lower extremity with inflammation: (3) Leg pain, left: PLAN: Plan This is a 72-year-old female with a longstanding history of chronic venous insufficiency, varicose veins with inflammation, and leg pain in her lower extremities bilaterally. Venous duplex examination has revealed incompetence involving the left great saphenous vein, the left small saphenous vein, and the left vein of Giacomini. The implications of this diagnosis have been discussed with the patient in detail. The options of management have been fully explained. Conservative treatment measures have been implemented, which have included leg elevation, avoidance of idle standing and sitting, graduated compression stockings, weight control measures, active lifestyle, hxtz-oop-rznnlsn analgesics, etc. Despite these measures, which have been ongoing for several years, the patient has continued to have symptoms in her lower extremities. Indications and risks of endovenous laser ablation of the left great saphenous vein, the left small saphenous vein, and the left vein of Giacomini have been discussed with the patient in detail. The nature of the procedure has been thoroughly explained. Expectations of the procedure have been discussed. The patient's questions have been answered. The patient has indicated her desire to proceed. She is to be admitted for the purpose of elective endovenous laser ablation of the left great saphenous vein, left small saphenous vein, and the left vein of Giacomini. The appropriate preprocedure consent process has been undertaken. 05/10/23 1104 <Electronically signed by Tyler Donahue MD> Cosigner Signature (if applicable): CC: JEAN Lopez; Dr. Tyler Donahue MD~ Signed ADDENDUM by Dr. Tyler Donahue MD on 05/14/23 at 0815 Addendum The patient has been re-examined. There are no changes in the patient's historyor physical findings. 05/14/23 0815<Electronically signed by Tyler Donahue MD> Cosigner Signature (if applicable): cc: JEAN Lopez; Dr. Tyler Donahue MD ~* Signed [facility] Work Phone: 1(752) 740-248509-08-2023 Instructions* Name Dates Details Follow up in 4-6 months Indication:BMI 28.0-28.9,adult Start:13-Jan-2023 Instruction Type:Provider Instructions for Treatment Patient Instructions Indication:Impaired fasting glucose Start:13-Jan-2023 Instruction Type:Provider Instructions for Treatment How to Access Health Informa tion Online using Patient Portal and 3rd [employer] Apps Indication:Impaired fasting glucose Start:13-Jan-2023 Instruction Type:Patient Education Patient Instructions Indication:Preop examination (Renamed from Pre-op evaluation) Start:03-Sep-2022 Instruction Type:Provider Instructions for Treatment How to Access Health Informa tion Online using Patient Portal and 3rd [employer] Apps Indication:Preop examination (Renamed from Pre-op evaluation) Start:03-Sep-2022 Instruction Type:Patient Education How to Access Health Informa tion Online using Patient Portal and 3rd Republican Apps Indication:Nonsmoker Start:20-Jun-2022 Instruction Type:Patient Education Patient Instructions Indication:Nonsmoker Start:20-Jun-2022 Instruction Type:Provider Instructions for Treatment How to Access Health Informa tion Online using Patient Portal and 3rd Republican Apps Indication:Nonsmoker Start:06-Jun-2022 Instruction Type:Patient Education Patient Instructions Indication:Nonsmoker Start:06-Jun-2022 Instruction Type:Provider Instructions for Treatment Patient Instructions Indication:Nonsmoker Start:25-Jul-2020 Instruction Type:Provider Instructions for Treatment How to Access Health Informa tion Online using Patient Portal and [employer] Republican Apps Indication:Nonsmoker Start:25-Jul-2020 Instruction Type:Patient Education Patient Instructions Indication:Nonsmoker Start:02-Jul-2020 Instruction Type:Provider Instructions for Treatment How to Access Health Informa tion Online using Patient Portal and 3rd [employer] Apps Indication:Nonsmoker Start:02-Jul-2020 Instruction Type:Patient Education How [...] for Treatment DISCONTINUED - NMR Profile ( 97118) Indication:Elevated cholesterol Start:01-Nov-2018 Instruction Type:Patient Education DISCONTINUED - METABOLIC HERNANDES EL, COMPREHENSIVE (46353) Indication:Elevated cholesterol Start:01-Nov-2018 Instruction Type:Patient Education How [...] Internal Medicine; [facility] Work Phone: 1(744) 620-674109-05-2023 Instructions* Name Dates Details Follow up in 4-6 months Indication:BMI 28.0-28.9,adult Start:13-Jan-2023 Instruction Type:Provider Instructions for Treatment Patient Instructions Indication:Impaired fasting glucose Start:13-Jan-2023 Instruction Type:Provider Instructions for Treatment How to Access Health Informa tion Online using Patient Portal and [employer] Apps Indication:Impaired fasting glucose Start:13-Jan-2023 Instruction Type:Patient Education Patient Instructions Indication:Preop examination (Renamed from Pre-op evaluation) Start:03-Sep-2022 Instruction Type:Provider Instructions for Treatment How to Access Health Informa tion Online using Patient Portal and 3rd [employer] Apps Indication:Preop examination (Renamed from Pre-op evaluation) Start:03-Sep-2022 Instruction Type:Patient Education How to Access Health Informa tion Online using Patient Portal and 3rd [employer] Apps Indication:Nonsmoker Start:20-Jun-2022 Instruction Type:Patient Education Patient Instructions Indication:Nonsmoker Start:20-Jun-2022 Instruction Type:Provider Instructions for Treatment How to Access Health Informa tion Online using Patient Portal and 3[employer] Apps Indication:Nonsmoker Start:06-Jun-2022 Instruction Type:Patient Education Patient Instructions Indication:Nonsmoker Start:06-Jun-2022 Instruction Type:Provider Instructions for Treatment Patient Instructions Indication:Nonsmoker Start:25-Jul-2020 Instruction Type:Provider Instructions for Treatment How to Access Health Informa tion Online using Patient Portal and 3rd [employer] Apps Indication:Nonsmoker Start:25-Jul-2020 Instruction Type:Patient Education Patient Instructions Indication:Nonsmoker Start:02-Jul-2020 Instruction Type:Provider Instructions for Treatment How to Access Health Informa tion Online using Patient Portal and [employer] Apps Indication:Nonsmoker Start:02-Jul-2020 Instruction Type:Patient Education How [...] for Treatment DISCONTINUED - NMR Profile ( 54058) Indication:Elevated cholesterol Start:01-Nov-2018 Instruction Type:Patient Education DISCONTINUED - METABOLIC HERNANDES EL, COMPREHENSIVE (87124) Indication:Elevated cholesterol Start:01-Nov-2018 Instruction Type:Patient Education How [...] Internal Medicine; [facility] Work Phone: 1(353) 541-803008-29-2023 Instructions* Name Dates Details Follow up in 4-6 months Indication:BMI 28.0-28.9,adult Start:13-Jan-2023 Instruction Type:Provider Instructions for Treatment Patient Instructions Indication:Impaired fasting glucose Start:13-Jan-2023 Instruction Type:Provider Instructions for Treatment How to Access Health Informa tion Online using Patient Portal and [employer]rd [employer] Apps Indication:Impaired fasting glucose Start:13-Jan-2023 Instruction Type:Patient Education Patient Instructions Indication:Preop examination (Renamed from Pre-op evaluation) Start:03-Sep-2022 Instruction Type:Provider Instructions for Treatment How to Access Health Informa tion Online using Patient Portal and 3rd [employer] Apps Indication:Preop examination (Renamed from Pre-op evaluation) Start:03-Sep-2022 Instruction Type:Patient Education How to Access Health Informa tion Online using Patient Portal and 3rd [employer] Apps Indication:Nonsmoker Start:20-Jun-2022 Instruction Type:Patient Education Patient Instructions Indication:Nonsmoker Start:20-Jun-2022 Instruction Type:Provider Instructions for Treatment How to Access Health Informa tion Online using Patient Portal and 3rd [employer] Apps Indication:Nonsmoker Start:06-Jun-2022 Instruction Type:Patient Education Patient Instructions Indication:Nonsmoker Start:06-Jun-2022 Instruction Type:Provider Instructions for Treatment Patient Instructions Indication:Nonsmoker Start:25-Jul-2020 Instruction Type:Provider Instructions for Treatment How to Access Health Informa tion Online using Patient Portal and 3rd [employer] Apps Indication:Nonsmoker Start:25-Jul-2020 Instruction Type:Patient Education Patient Instructions Indication:Nonsmoker Start:02-Jul-2020 Instruction Type:Provider Instructions for Treatment How to Access Health Informa tion Online using Patient Portal and 3rd [employer] Apps Indication:Nonsmoker Start:02-Jul-2020 Instruction Type:Patient Education How [...] for Treatment DISCONTINUED - NMR Profile ( 22900) Indication:Elevated cholesterol Start:01-Nov-2018 Instruction Type:Patient Education DISCONTINUED - METABOLIC HERNANDES EL, COMPREHENSIVE (42038) Indication:Elevated cholesterol Start:01-Nov-2018 Instruction Type:Patient Education How [...] Internal Medicine; [facility] Work Phone: 1(267) 961-379305-10-2023 History and physical note Author Dr. Melissa [facility] September 24, 2022 7:58am Note Date/Time September 08, 2022 1:0 3pm [facility] Medical Records Department [address] [place] [address] History & Physical Exam 09/08/22 1302 MR#: [id number] Acct: [id number] Name: NERISSA RG Rep #:[id number] : 1950 72 From: Tj ANGEL PA-C PCP: Herlinda Lopez NP-C Status:REG S DC Location: [place] [address] History and Physical History and Physical? Patient Name: Nerissa Rg : 1950 From:? TJ OWUSU PA-C? DATE OF SURGERY:? 09/24/2022 SCHEDULED PROCEDURE:? Right total knee arthroplasty HISTORY OF PRESENT ILLNESS: Preoperative history and physical exam was performed on September 08, 2022.? This alicia 72-year-old female who has had ongoing pain for years in bilateral knees.? Herright knee is worse than the left.? Her pain can reach 7/10 with activities.? Pain is increased with going up and down stairs, walking, standing.? Pain has been intermittent, aching and sore.? Pain is located over the medial part of theknee.? She does have start up pain.? Patient states her pain has been affecting all activities in which she has had to modify her activities.? She has stumbled secondary to the knee pain.? Patient has tried rest, ice, heat, elevation with minimal relief.? She has tried previous corticosteroid injections, Synvisc injections years ago without relief, aquatic therapy with minimal relief.? She has tried oral medications including meloxicam and Tylenol.? She has also used CBD ointment.? She has had previous to corticosteroid injections.? Denies past history of surgery on the right knee.? She denies past history of DVT or pulmonary embolism.? Patient's listed medical problem is hypercholesterolemia.? We are obtaining surgical clearance from primary care provider Dr. Lopez.? 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 Personal Habits:? Cigarette Use: Never Smoked Cigarettes.Smokeless Tobacco: Never Used Smokeless Tobacco.E-Cigarette Use: Never used.Alcohol: Denies use.Drug Use: Denies Use.Enjoy Exercising: Exercises 1-3 X/Week. Reviewed, no changes. VITALS: Ht: 61 Wt: 157lb Wt k.215 BMI: 29.7 BP: 122/78 Pulse: 66 Resp: 20 T: 97.9 T: 36.6C Pain Level: 0 O2SatR: 99 ALLERGIES: No Known Drug Allergy? MEDICATIONS: Zofran 4 mg one by mouth every 8 as needed nausea, Famotidine 20 mg 1 by mouth every day, Oxycodone HCL 5 mg 1-2 tab by mouth every 4 hours, Meloxicam 15 mg 1 by mouth every day, Advil 200 mg 2po qday PRN, T-Relief CBD+13 cbd+13 as needed,Coq10 100 mg qd, Pravastatin Sodium 40 mg 1 PO daily, Vitamin D3 25 mcg (1000 Ut) 1 a day PRE-OP EXAM:? General appearance:NORMAL? ? ? Other: Eyes: Conjunctivae and lids: NORMAL? Pupils: ERR Ears, Nose, Mouth, and Throat: NORMAL? Other: Inspection of lips, teeth and gums: NORMAL? ?Other: Neck: Examination of neck: no masses noted. Respiratory: Assessment of respiratory effort: NORMAL? ?Other: ?Auscultation of lungs: clear to auscultation no wheezes, rhonchi or rales. Cardiovascular:? Auscultation of heart: regular rate and rhythm, no murmurs, gallops or rubs. PHYSICAL EXAMINATION: Patient does walk with an antalgic gait.? Right knee has tenderness to palpationalong the medial joint line.? She has moderate effusion.? She has correctable varus alignment.? Range of motion: Lacks 5 full extension to 120 flexion.? She has 3 mm laxity with MCL testing.? Stable to anterior/posterior drawer exam. 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 IMPRESSION: 1.? Severe right knee osteoarthritis with varus alignment 2.? Left knee osteoarthritis 3.? Hypercholesterolemia 4.? Overactive bladder PLAN: Dr. Quinn Melissa did discuss and review with the patient all treatment options including surgical versus nonsurgical options.? Patient does wish to proceed with the above-stated procedure.? Potential risks, benefits, and complications of the procedure were discussed in detail including but not limited to , infection, nerve and blood vessel damage, persistent pain, numbness, tingling, paresthesias, blood clot, pulmonary embolism, and requirement for possible further surgery.? The patient expressed full understanding and has no further questions for the doctor.? Patient does agree to proceed with the above-stated procedure and has signed the surgery consent form. POST-OP MEDICATION PLAN: Pain Medications: Patient was given the following medications at the preoperative visit: Oxycodone, Tylenol and will resume her meloxicam postoperatively. DVT Prophylaxis: Aspirin 81 mg twice daily for 4 weeks postoperatively.? Denies past history of DVT or pulmonary embolism This dictation was created using voice recognition software. Phonetic and/or grammatical errors may exist. ___? I have re-examined the patient.? There are no clinical changes since date of exam. ___? See progress notes for changes. ___? Dictated on admission Date: ? ? ?Time: Signature: 09/08/22 1303 <Electronically signed by Tj ANGEL PA-C> Cosigner Signature (if applicable): CC: JEAN Lopez; JEANETTE Owusu; Dr. Quinn Melissa MD~ Signed ADDENDUM by Dr. Quinn Melissa MD on 09/24/22 at 0758 Addendum I have examined the patient and the H&P has been reviewed. There are no clinicalchanges since date of exam. 09/24/22 0758<Electronically signed by Quinn Melissa MD> Cosigner Signature (if applicable): cc: JEAN Lopez; JEANETTE Owusu; Dr. Quinn Melissa MD ~* Signed [facility] Work Phone: [phone]) 557-142105-10-2023 Procedure [facility] Evaluation note* Diagnosis Onset Date Resolution Status Leg pain, left acute Varicose veins of left lower extremity with inflammation acute Chronic venous insufficiency [facility] Work Phone: Evaluation noteNo assessment information available [facility] Work Phone: Evaluation note* Diagnosis Onset Date Resolution Status Symptomatic varicose veins of right lower extremity acute Varicose veins of left lower extremity with inflammation acute Chronic venous insufficiency [facility] Work Phone: Hospital Discharge instructions Additional Instructions Implant Used?: Yes [facility] Work Phone: Hospital Discharge instructions Additional Instructions Implant Used?: [facility] Work Phone: Instructions* Name Dates Details Patient Instructions Indication:Nonsmoker Start:25-Jul-2020 Instruction Type:Provider Instructions for Treatment How to Access Health Informa tion Online using Patient Portal and 3rd Republican Apps Indication:Nonsmoker Start:25-Jul-2020 Instruction Type:Patient Education Patient Instructions Indication:Nonsmoker Start:02-Jul-2020 Instruction Type:Provider Instructions for Treatment How to Access Health Informa tion Online using Patient Portal and 3rd Republican Apps Indication:Nonsmoker Start:02-Jul-2020 Instruction Type:Patient Education How [...] for Treatment DISCONTINUED - NMR Profile ( 75527) Indication:Elevated cholesterol Start:01-Nov-2018 Instruction Type:Patient Education DISCONTINUED - METABOLIC HERNANDES EL, COMPREHENSIVE (61826) Indication:Elevated cholesterol Start:01-Nov-2018 Instruction Type:Patient Education How [...] Informa tion Online using Patient Portal and [employer] Apps Indication:Impaired fasting glucose Start:26-May-2022 Instruction Type:Patient Education Patient Instructions Indication:Impaired fasting glucose Start:26-May-2022 Instruction Type:Provider Instructions for Treatment Patient Instructions Indication:Nonsmoker Start:25-Jul-2020 Instruction Type:Provider Instructions for Treatment How to Access Health Informa tion Online using Patient Portal and [employer] Apps Indication:Nonsmoker Start:25-Jul-2020 Instruction Type:Patient Education Patient Instructions Indication:Nonsmoker Start:02-Jul-2020 Instruction Type:Provider Instructions for Treatment How to Access Health Informa tion Online using Patient Portal and 3rd [employer] Apps Indication:Nonsmoker Start:02-Jul-2020 Instruction Type:Patient Education How [...] for Treatment DISCONTINUED - NMR Profile ( 98500) Indication:Elevated cholesterol Start:01-Nov-2018 Instruction Type:Patient Education DISCONTINUED - METABOLIC HERNANDES EL, COMPREHENSIVE (13530) Indication:Elevated cholesterol Start:01-Nov-2018 Instruction Type:Patient Education How [...] tion Online using Patient Portal and 3rd [employer] Apps Indication:Nonsmoker Start:06-Jun-2022 Instruction Type:Patient Education Patient Instructions Indication:Nonsmoker Start:06-Jun-2022 Instruction Type:Provider Instructions for Treatment Patient Instructions Indication:Nonsmoker Start:25-Jul-2020 Instruction Type:Provider Instructions for Treatment How to Access Health Informa tion Online using Patient Portal and 3rd Republican Apps Indication:Nonsmoker Start:25-Jul-2020 Instruction Type:Patient Education Patient Instructions Indication:Nonsmoker Start:02-Jul-2020 Instruction Type:Provider Instructions for Treatment How to Access Health Informa tion Online using Patient Portal and 3rd Republican Apps Indication:Nonsmoker Start:02-Jul-2020 Instruction Type:Patient Education How [...] for Treatment DISCONTINUED - NMR Profile ( [id number]) Indication:Elevated cholesterol Start:01-Nov-2018 Instruction Type:Patient Education DISCONTINUED - METABOLIC HERNANDES EL, COMPREHENSIVE ([id number]) Indication:Elevated cholesterol Start:01-Nov-2018 Instruction Type:Patient Education How [...] tion Online using Patient Portal and 3rd Republican Apps Indication:Nonsmoker Start:20-Jun-2022 Instruction Type:Patient Education Patient Instructions Indication:Nonsmoker Start:20-Jun-2022 Instruction Type:Provider Instructions for Treatment How to Access Health Informa tion Online using Patient Portal and 3rd Republican Apps Indication:Nonsmoker Start:06-Jun-2022 Instruction Type:Patient Education Patient Instructions Indication:Nonsmoker Start:06-Jun-2022 Instruction Type:Provider Instructions for Treatment Patient Instructions Indication:Nonsmoker Start:25-Jul-2020 Instruction Type:Provider Instructions for Treatment How to Access Health Informa tion Online using Patient Portal and 3rd Republican Apps Indication:Nonsmoker Start:25-Jul-2020 Instruction Type:Patient Education Patient Instructions Indication:Nonsmoker Start:02-Jul-2020 Instruction Type:Provider Instructions for Treatment How to Access Health Informa tion Online using Patient Portal and 3rd Republican Apps Indication:Nonsmoker Start:02-Jul-2020 Instruction Type:Patient Education How [...] for Treatment DISCONTINUED - NMR Profile ( 26743) Indication:Elevated cholesterol Start:01-Nov-2018 Instruction Type:Patient Education DISCONTINUED - METABOLIC HERNANDES EL, COMPREHENSIVE (52505) Indication:Elevated cholesterol Start:01-Nov-2018 Instruction Type:Patient Education How [...] tion Online using Patient Portal and 3rd Republican Apps Indication:Nonsmoker Start:20-Jun-2022 Instruction Type:Patient Education Patient Instructions Indication:Nonsmoker Start:20-Jun-2022 Instruction Type:Provider Instructions for Treatment How to Access Health Informa tion Online using Patient Portal and 3rd Republican Apps Indication:Nonsmoker Start:06-Jun-2022 Instruction Type:Patient Education Patient Instructions Indication:Nonsmoker Start:06-Jun-2022 Instruction Type:Provider Instructions for Treatment Patient Instructions Indication:Nonsmoker Start:25-Jul-2020 Instruction Type:Provider Instructions for Treatment How to Access Health Informa tion Online using Patient Portal and 3rd Republican Apps Indication:Nonsmoker Start:25-Jul-2020 Instruction Type:Patient Education Patient Instructions Indication:Nonsmoker Start:02-Jul-2020 Instruction Type:Provider Instructions for Treatment How to Access Health Informa tion Online using Patient Portal and 3rd Republican Apps Indication:Nonsmoker Start:02-Jul-2020 Instruction Type:Patient Education How [...] for Treatment DISCONTINUED - NMR Profile ( [id number]) Indication:Elevated cholesterol Start:01-Nov-2018 Instruction Type:Patient Education DISCONTINUED - METABOLIC RAYNA EVANS ([id number]) Indication:Elevated cholesterol Start:01-Nov-2018 Instruction Type:Patient Education How [...] tion Online using Patient Portal and 3rd Republican Apps Indication:Nonsmoker Start:20-Jun-2022 Instruction Type:Patient Education Patient Instructions Indication:Nonsmoker Start:20-Jun-2022 Instruction Type:Provider Instructions for Treatment How to Access Health Informa tion Online using Patient Portal and [employer] Republican Apps Indication:Nonsmoker Start:06-Jun-2022 Instruction Type:Patient Education Patient Instructions Indication:Nonsmoker Start:06-Jun-2022 Instruction Type:Provider Instructions for Treatment Patient Instructions Indication:Nonsmoker Start:25-Jul-2020 Instruction Type:Provider Instructions for Treatment How to Access Health Informa tion Online using Patient Portal and [employer] Republican Apps Indication:Nonsmoker Start:25-Jul-2020 Instruction Type:Patient Education Patient Instructions Indication:Nonsmoker Start:02-Jul-2020 Instruction Type:Provider Instructions for Treatment How to Access Health Informa tion Online using Patient Portal and [employer] Republican Apps Indication:Nonsmoker Start:02-Jul-2020 Instruction Type:Patient Education How [...] for Treatment DISCONTINUED - NMR Profile ( 35519) Indication:Elevated cholesterol Start:01-Nov-2018 Instruction Type:Patient Education DISCONTINUED - METABOLIC HERNANDES EL, COMPREHENSIVE ([id number]) Indication:Elevated cholesterol Start:01-Nov-2018 Instruction Type:Patient Education How [...] tion Online using Patient Portal and 3rd Republican Apps Indication:Preop examination (Renamed from Pre-op evaluation) Start:03-Sep-2022 Instruction Type:Patient Education How to Access Health Informa tion Online using Patient Portal and 3rd Republican Apps Indication:Nonsmoker Start:20-Jun-2022 Instruction Type:Patient Education Patient Instructions Indication:Nonsmoker Start:20-Jun-2022 Instruction Type:Provider Instructions for Treatment How to Access Health Informa tion Online using Patient Portal and 3rd Republican Apps Indication:Nonsmoker Start:06-Jun-2022 Instruction Type:Patient Education Patient Instructions Indication:Nonsmoker Start:06-Jun-2022 Instruction Type:Provider Instructions for Treatment Patient Instructions Indication:Nonsmoker Start:25-Jul-2020 Instruction Type:Provider Instructions for Treatment How to Access Health Informa tion Online using Patient Portal and 3rd Republican Apps Indication:Nonsmoker Start:25-Jul-2020 Instruction Type:Patient Education Patient Instructions Indication:Nonsmoker Start:02-Jul-2020 Instruction Type:Provider Instructions for Treatment How to Access Health Informa tion Online using Patient Portal and 3rd Republican Apps Indication:Nonsmoker Start:02-Jul-2020 Instruction Type:Patient Education How [...] for Treatment DISCONTINUED - NMR Profile ( [id number]) Indication:Elevated cholesterol Start:01-Nov-2018 Instruction Type:Patient Education DISCONTINUED - METABOLIC HERNANDES EL, COMPREHENSIVE (00734) Indication:Elevated cholesterol Start:01-Nov-2018 Instruction Type:Patient Education How [...] tion Online using Patient Portal and 3rd Republican Apps Indication:Preop examination (Renamed from Pre-op evaluation) Start:03-Sep-2022 Instruction Type:Patient Education How to Access Health Informa tion Online using Patient Portal and 3rd Republican Apps Indication:Nonsmoker Start:20-Jun-2022 Instruction Type:Patient Education Patient Instructions Indication:Nonsmoker Start:20-Jun-2022 Instruction Type:Provider Instructions for Treatment How to Access Health Informa tion Online using Patient Portal and 3rd Republican Apps Indication:Nonsmoker Start:06-Jun-2022 Instruction Type:Patient Education Patient Instructions Indication:Nonsmoker Start:06-Jun-2022 Instruction Type:Provider Instructions for Treatment Patient Instructions Indication:Nonsmoker Start:25-Jul-2020 Instruction Type:Provider Instructions for Treatment How to Access Health Informa tion Online using Patient Portal and 3rd Republican Apps Indication:Nonsmoker Start:25-Jul-2020 Instruction Type:Patient Education Patient Instructions Indication:Nonsmoker Start:02-Jul-2020 Instruction Type:Provider Instructions for Treatment How to Access Health Informa tion Online using Patient Portal and 3rd Republican Apps Indication:Nonsmoker Start:02-Jul-2020 Instruction Type:Patient Education How [...] for Treatment DISCONTINUED - NMR Profile ( [id number]) Indication:Elevated cholesterol Start:01-Nov-2018 Instruction Type:Patient Education DISCONTINUED - METABOLIC HERNANDES EL, COMPREHENSIVE (24077) Indication:Elevated cholesterol Start:01-Nov-2018 Instruction Type:Patient Education How [...] tion Online using Patient Portal and 3rd Republican Apps Indication:Preop examination (Renamed from Pre-op evaluation) Start:03-Sep-2022 Instruction Type:Patient Education How to Access Health Informa tion Online using Patient Portal and 3rd Republican Apps Indication:Nonsmoker Start:20-Jun-2022 Instruction Type:Patient Education Patient Instructions Indication:Nonsmoker Start:20-Jun-2022 Instruction Type:Provider Instructions for Treatment How to Access Health Informa tion Online using Patient Portal and 3rd Republican Apps Indication:Nonsmoker Start:06-Jun-2022 Instruction Type:Patient Education Patient Instructions Indication:Nonsmoker Start:06-Jun-2022 Instruction Type:Provider Instructions for Treatment Patient Instructions Indication:Nonsmoker Start:25-Jul-2020 Instruction Type:Provider Instructions for Treatment How to Access Health Informa tion Online using Patient Portal and 3rd Republican Apps Indication:Nonsmoker Start:25-Jul-2020 Instruction Type:Patient Education Patient Instructions Indication:Nonsmoker Start:02-Jul-2020 Instruction Type:Provider Instructions for Treatment How to Access Health Informa tion Online using Patient Portal and 3rd Republican Apps Indication:Nonsmoker Start:02-Jul-2020 Instruction Type:Patient Education How [...] for Treatment DISCONTINUED - NMR Profile ( 56425) Indication:Elevated cholesterol Start:01-Nov-2018 Instruction Type:Patient Education DISCONTINUED - METABOLIC HERNANDES EL, COMPREHENSIVE (00390) Indication:Elevated cholesterol Start:01-Nov-2018 Instruction Type:Patient Education How [...] tion Online using Patient Portal and [employer]rd [employer] Apps Indication:Preop examination (Renamed from Pre-op evaluation) Start:03-Sep-2022 Instruction Type:Patient Education How to Access Health Informa tion Online using Patient Portal and 3rd Republican Apps Indication:Nonsmoker Start:20-Jun-2022 Instruction Type:Patient Education Patient Instructions Indication:Nonsmoker Start:20-Jun-2022 Instruction Type:Provider Instructions for Treatment How to Access Health Informa tion Online using Patient Portal and 3rd Republican Apps Indication:Nonsmoker Start:06-Jun-2022 Instruction Type:Patient Education Patient Instructions Indication:Nonsmoker Start:06-Jun-2022 Instruction Type:Provider Instructions for Treatment Patient Instructions Indication:Nonsmoker Start:25-Jul-2020 Instruction Type:Provider Instructions for Treatment How to Access Health Informa tion Online using Patient Portal and 3rd Republican Apps Indication:Nonsmoker Start:25-Jul-2020 Instruction Type:Patient Education Patient Instructions Indication:Nonsmoker Start:02-Jul-2020 Instruction Type:Provider Instructions for Treatment How to Access Health Informa tion Online using Patient Portal and 3rd Republican Apps Indication:Nonsmoker Start:02-Jul-2020 Instruction Type:Patient Education How [...] for Treatment DISCONTINUED - NMR Profile ( 48394) Indication:Elevated cholesterol Start:01-Nov-2018 Instruction Type:Patient Education DISCONTINUED - METABOLIC HERNANDES EL, COMPREHENSIVE (63914) Indication:Elevated cholesterol Start:01-Nov-2018 Instruction Type:Patient Education How [...] Internal Medicine; [facility] Work Phone: reason for referral (narrative)No reason for referral information availableWGal[facility] Work Phone: Family History No Family History Records FoundUnknown Family Member Name Dates Details Brother 1 Comments:high cholesterol, O A, Afib, HTN Status:Active Father Comments:HTN, Hypercholester ol, PVD Status:Active Maternal Grandfather Comments:CVA Status:Active Maternal Grandmother Comments:Leukemia Status:Active Mother Comments:Afib, OA, HTN, hype rcholesterol Status:Active Paternal Grandfather Comments:VT Status:Active Paternal Grandmother Status:Active Sister 1 Comments:Arthritis, High cho lesterol Status:Active Unknown Family Member Name Dates Details Brother 1 Comments:high cholesterol, O A, Afib, HTN Status:Active Father Comments:HTN, Hypercholester ol, PVD Status:Active Maternal Grandfather Comments:CVA Status:Active Maternal Grandmother Comments:Leukemia Status:Active Mother Comments:Afib, OA, HTN, hype rcholesterol Status:Active Paternal Grandfather Comments:VT Status:Active Paternal Grandmother Status:Active Sister 1 Comments:Arthritis, High cho lesterol Status:Active Unknown Family Member Name Dates Details Brother 1 Comments:high cholesterol, O A, Afib, HTN Status:Active Father Comments:HTN, Hypercholester ol, PVD Status:Active Maternal Grandfather Comments:CVA Status:Active Maternal Grandmother Comments:Leukemia Status:Active Mother Comments:Afib, OA, HTN, hype rcholesterol Status:Active Paternal Grandfather Comments:VT Status:Active Paternal Grandmother Status:Active Sister 1 Comments:Arthritis, High cho lesterol Status:Active Unknown Family Member Name Dates Details Brother 1 Comments:high cholesterol, O A, Afib, HTN Status:Active Father Comments:HTN, Hypercholester ol, PVD Status:Active Maternal Grandfather Comments:CVA Status:Active Maternal Grandmother Comments:Leukemia Status:Active Mother Comments:Afib, OA, HTN, hype rcholesterol Status:Active Paternal Grandfather Comments:[place] Status:Active Paternal Grandmother Status:Active Sister 1 Comments:Arthritis, High cho lesterol Status:Active Unknown Family Member Name Dates Details Brother 1 Comments:high cholesterol, O A, Afib, HTN Status:Active Father Comments:HTN, Hypercholester ol, PVD Status:Active Maternal Grandfather Comments:CVA Status:Active Maternal Grandmother Comments:Leukemia Status:Active Mother Comments:Afib, OA, HTN, hype rcholesterol Status:Active Paternal Grandfather Comments:[place] Status:Active Paternal Grandmother Status:Active Sister 1 Comments:Arthritis, High cho lesterol Status:Active Unknown Family Member Name Dates Details Brother 1 Comments:high cholesterol, O A, Afib, HTN Status:Active Father Comments:HTN, Hypercholester ol, PVD Status:Active Maternal Grandfather Comments:CVA Status:Active Maternal Grandmother Comments:Leukemia Status:Active Mother Comments:Afib, OA, HTN, hype rcholesterol Status:Active Paternal Grandfather Comments:[place] Status:Active Paternal Grandmother Status:Active Sister 1 Comments:Arthritis, High cho lesterol Status:Active Unknown Family Member Name Dates Details Brother 1 Comments:high cholesterol, O A, Afib, HTN Status:Active Father Comments:HTN, Hypercholester ol, PVD Status:Active Maternal Grandfather Comments:CVA Status:Active Maternal Grandmother Comments:Leukemia Status:Active Mother Comments:Afib, OA, HTN, hype rcholesterol Status:Active Paternal Grandfather Comments:[place] Status:Active Paternal Grandmother Status:Active Sister 1 Comments:Arthritis, High cho lesterol Status:Active Unknown Family Member Name Dates Details Brother 1 Comments:high cholesterol, O A, Afib, HTN Status:Active Father Comments:HTN, Hypercholester ol, PVD Status:Active Maternal Grandfather Comments:CVA Status:Active Maternal Grandmother Comments:Leukemia Status:Active Mother Comments:Afib, OA, HTN, hype rcholesterol Status:Active Paternal Grandfather Comments:[place] Status:Active Paternal Grandmother Status:Active Sister 1 Comments:Arthritis, High cho lesterol Status:Active Unknown Family Member Name Dates Details Brother 1 Comments:high cholesterol, O A, Afib, HTN Status:Active Father Comments:HTN, Hypercholester ol, PVD Status:Active Maternal Grandfather Comments:CVA Status:Active Maternal Grandmother Comments:Leukemia Status:Active Mother Comments:Afib, OA, HTN, hype rcholesterol Status:Active Paternal Grandfather Comments:[place] Status:Active Paternal Grandmother Status:Active Sister 1 Comments:Arthritis, High cho lesterol Status:Active Unknown Family Member Name Dates Details Brother 1 Comments:high cholesterol, O A, Afib, HTN Status:Active Father Comments:HTN, Hypercholester ol, PVD Status:Active Maternal Grandfather Comments:CVA Status:Active Maternal Grandmother Comments:Leukemia Status:Active Mother Comments:Afib, OA, HTN, hype rcholesterol Status:Active Paternal Grandfather Comments:[place] Status:Active Paternal Grandmother Status:Active Sister 1 Comments:Arthritis, High cho lesterol Status:Active Unknown Family Member Name Dates Details Brother 1 Comments:high cholesterol, O A, Afib, HTN Status:Active Father Comments:HTN, Hypercholester ol, PVD Status:Active Maternal Grandfather Comments:CVA Status:Active Maternal Grandmother Comments:Leukemia Status:Active Mother Comments:Afib, OA, HTN, hype rcholesterol Status:Active Paternal Grandfather Comments:[place] Status:Active Paternal Grandmother Status:Active Sister 1 Comments:Arthritis, High cho lesterol Status:Active Unknown Family Member Name Dates Details Brother 1 Comments:high cholesterol, O A, Afib, HTN Status:Active Father Comments:HTN, Hypercholester ol, PVD Status:Active Maternal Grandfather Comments:CVA Status:Active Maternal Grandmother Comments:Leukemia Status:Active Mother Comments:Afib, OA, HTN, hype rcholesterol Status:Active Paternal Grandfather Comments:[place] Status:Active Paternal Grandmother Status:Active Sister 1 Comments:Arthritis, High cho lesterol Status:Active Unknown Family Member Name Dates Details Brother 1 Comments:high cholesterol, O A, Afib, HTN Status:Active Father Comments:HTN, Hypercholester ol, PVD Status:Active Maternal Grandfather Comments:CVA Status:Active Maternal Grandmother Comments:Leukemia Status:Active Mother Comments:Afib, OA, HTN, hype rcholesterol Status:Active Paternal Grandfather Comments:[place] Status:Active Paternal Grandmother Status:Active Sister 1 Comments:Arthritis, High cho lesterol Status:Active Unknown Family Member Name Dates Details Brother 1 Comments:high cholesterol, O A, Afib, HTN Status:Active Father Comments:HTN, Hypercholester ol, PVD Status:Active Maternal Grandfather Comments:CVA Status:Active Maternal Grandmother Comments:Leukemia Status:Active Mother Comments:Afib, OA, HTN, hype rcholesterol Status:Active Paternal Grandfather Comments:[place] Status:Active Paternal Grandmother Status:Active Sister 1 Comments:Arthritis, High cho lesterol Status:Active Unknown Family Member Name Dates Details Brother 1 Comments:high cholesterol, O A, Afib, HTN Status:Active Father Comments:HTN, Hypercholester ol, PVD Status:Active Maternal Grandfather Comments:CVA Status:Active Maternal Grandmother Comments:Leukemia Status:Active Mother Comments:Afib, OA, HTN, hype rcholesterol Status:Active Paternal Grandfather Comments:[place] Status:Active Paternal Grandmother Status:Active Sister 1 Comments:Arthritis, High cho lesterol Status:Active Unknown Family Member Name Dates Details Brother 1 Comments:high cholesterol, O A, Afib, HTN Status:Active Father Comments:HTN, Hypercholester ol, PVD Status:Active Maternal Grandfather Comments:CVA Status:Active Maternal Grandmother Comments:Leukemia Status:Active Mother Comments:Afib, OA, HTN, hype rcholesterol Status:Active Paternal Grandfather Comments:[place] Status:Active Paternal Grandmother Status:Active Sister 1 Comments:Arthritis, High cho lesterol Status:Active Unknown Family Member Name Dates Details Brother 1 Comments:high cholesterol, O A, Afib, HTN Status:Active Father Comments:HTN, Hypercholester ol, PVD Status:Active Maternal Grandfather Comments:CVA Status:Active Maternal Grandmother Comments:Leukemia Status:Active Mother Comments:Afib, OA, HTN, hype rcholesterol Status:Active Paternal Grandfather Comments:[place] Status:Active Paternal Grandmother Status:Active Sister 1 Comments:Arthritis, High cho lesterol Status:Active Unknown Family Member Name Dates Details Brother 1 Comments:high cholesterol, O A, Afib, HTN Status:Active Father Comments:HTN, Hypercholester ol, PVD Status:Active Maternal Grandfather Comments:CVA Status:Active Maternal Grandmother Comments:Leukemia Status:Active Mother Comments:Afib, OA, HTN, hype rcholesterol Status:Active Paternal Grandfather Comments:[place] Status:Active Paternal Grandmother Status:Active Sister 1 Comments:Arthritis, High cho lesterol Status:Active Relationship Condition Age at Onset Recorded Date/T alejandro mother Atrial fibrillation Unknown Cardiac disease Unknown Hypertension Unknown High blood cholesterol Unknown father Arthritis Unknown Prediabetes Unknown aunt Malignant neoplasm of breast Unknown Chronic lymphocytic leukemia Unknown uncle Chronic lymphocytic leukemia Unknown Unknown Family Member Name Dates Details Brother 1 Comments:high cholesterol, O A, Afib, HTN Status:Active Father Comments:HTN, Hypercholester ol, PVD Status:Active Maternal Grandfather Comments:CVA Status:Active Maternal Grandmother Comments:Leukemia Status:Active Mother Comments:Afib, OA, HTN, hype rcholesterol Status:Active Paternal Grandfather Comments:[place] Status:Active Paternal Grandmother Status:Active Sister 1 Comments:Arthritis, High cho lesterol Status:Active Unknown Family Member Name Dates Details Brother 1 Comments:high cholesterol, O A, Afib, HTN Status:Active Father Comments:HTN, Hypercholester ol, PVD Status:Active Maternal Grandfather Comments:CVA Status:Active Maternal Grandmother Comments:Leukemia Status:Active Mother Comments:Afib, OA, HTN, hype rcholesterol Status:Active Paternal Grandfather Comments:[place] Status:Active Paternal Grandmother Status:Active Sister 1 Comments:Arthritis, High cho lesterol Status:Active Unknown Family Member Name Dates Details Brother 1 Comments:high cholesterol, O A, Afib, HTN Status:Active Father Comments:HTN, Hypercholester ol, PVD Status:Active Maternal Grandfather Comments:CVA Status:Active Maternal Grandmother Comments:Leukemia Status:Active Mother Comments:Afib, OA, HTN, hype rcholesterol Status:Active Paternal Grandfather Comments:[place] Status:Active Paternal Grandmother Status:Active Sister 1 Comments:Arthritis, High cho lesterol Status:Active Unknown Family Member Name Dates Details Brother 1 Comments:high cholesterol, O A, Afib, HTN Status:Active Father Comments:HTN, Hypercholester ol, PVD Status:Active Maternal Grandfather Comments:CVA Status:Active Maternal Grandmother Comments:Leukemia Status:Active Mother Comments:Afib, OA, HTN, hype rcholesterol Status:Active Paternal Grandfather Comments:[place] Status:Active Paternal Grandmother Status:Active Sister 1 Comments:Arthritis, High cho lesterol Status:Active Unknown Family Member Name Dates Details Brother 1 Comments:high cholesterol, O A, Afib, HTN Status:Active Father Comments:HTN, Hypercholester ol, PVD Status:Active Maternal Grandfather Comments:CVA Status:Active Maternal Grandmother Comments:Leukemia Status:Active Mother Comments:Afib, OA, HTN, hype rcholesterol Status:Active Paternal Grandfather Comments:[place] Status:Active Paternal Grandmother Status:Active Sister 1 Comments:Arthritis, High cho lesterol Status:Active Unknown Family Member Name Dates Details Brother 1 Comments:high cholesterol, O A, Afib, HTN Status:Active Father Comments:HTN, Hypercholester ol, PVD Status:Active Maternal Grandfather Comments:CVA Status:Active Maternal Grandmother Comments:Leukemia Status:Active Mother Comments:Afib, OA, HTN, hype rcholesterol Status:Active Paternal Grandfather Comments:[place] Status:Active Paternal Grandmother Status:Active Sister 1 Comments:Arthritis, High cho lesterol Status:Active Unknown Family Member Name Dates Details Brother 1 Comments:high cholesterol, O A, Afib, HTN Status:Active Father Comments:HTN, Hypercholester ol, PVD Status:Active Maternal Grandfather Comments:CVA Status:Active Maternal Grandmother Comments:Leukemia Status:Active Mother Comments:Afib, OA, HTN, hype rcholesterol Status:Active Paternal Grandfather Comments:[place] Status:Active Paternal Grandmother Status:Active Sister 1 Comments:Arthritis, High cho lesterol Status:Active Unknown Family Member Name Dates Details Brother 1 Comments:high cholesterol, O A, Afib, HTN Status:Active Father Comments:HTN, Hypercholester ol, PVD Status:Active Maternal Grandfather Comments:CVA Status:Active Maternal Grandmother Comments:Leukemia Status:Active Mother Comments:Afib, OA, HTN, hype rcholesterol Status:Active Paternal Grandfather Comments:[place] Status:Active Paternal Grandmother Status:Active Sister 1 Comments:Arthritis, High cho lesterol Status:Active Unknown Family Member Name Dates Details Brother 1 Comments:high cholesterol, O A, Afib, HTN Status:Active Father Comments:HTN, Hypercholester ol, PVD Status:Active Maternal Grandfather Comments:CVA Status:Active Maternal Grandmother Comments:Leukemia Status:Active Mother Comments:Afib, OA, HTN, hype rcholesterol Status:Active Paternal Grandfather Comments:[place] Status:Active Paternal Grandmother Status:Active Sister 1 Comments:Arthritis, [...] Dates Details DISCONTINUED - NMR Profile ( [id number]) Indication:Elevated cholesterol Start:01-Nov-2018 Instruction Type:Patient Education DISCONTINUED - METABOLIC HERNANDES CARLOS, COMPREHENSIVE (50511) Indication:Elevated cholesterol Start:01-Nov-2018 Instruction Type:Patient Education How [...] Dates Details DISCONTINUED - NMR Profile ( [id number]) Indication:Elevated cholesterol Start:01-Nov-2018 Instruction Type:Patient Education DISCONTINUED - METABOLIC HERNANDES EL, COMPREHENSIVE ([id number]) Indication:Elevated cholesterol Start:01-Nov-2018 Instruction Type:Patient Education How [...] for Treatment DISCONTINUED - NMR Profile ( [id number]) Indication:Elevated cholesterol Start:01-Nov-2018 Instruction Type:Patient Education DISCONTINUED - METABOLIC HERNANDES EL, COMPREHENSIVE ([id number]) Indication:Elevated cholesterol Start:01-Nov-2018 Instruction Type:Patient Education How [...] for Treatment DISCONTINUED - NMR Profile ( [id number]) Indication:Elevated cholesterol Start:01-Nov-2018 Instruction Type:Patient Education DISCONTINUED - METABOLIC HERNANDES EL, COMPREHENSIVE ([id number]) Indication:Elevated cholesterol Start:01-Nov-2018 Instruction Type:Patient Education How [...] for Treatment DISCONTINUED - NMR Profile ( [id number]) Indication:Elevated cholesterol Start:01-Nov-2018 Instruction Type:Patient Education DISCONTINUED - METABOLIC HERNANDES EL, COMPREHENSIVE ([id number]) Indication:Elevated cholesterol Start:01-Nov-2018 Instruction Type:Patient Education How [...] tion Online using Patient Portal and 3rd [employer] Apps Indication:Nonsmoker Start:02-Jul-2020 Instruction Type:Patient Education How [...] for Treatment DISCONTINUED - NMR Profile ( [id number]) Indication:Elevated cholesterol Start:01-Nov-2018 Instruction Type:Patient Education DISCONTINUED - METABOLIC HERNANDES EL, COMPREHENSIVE ([id number]) Indication:Elevated cholesterol Start:01-Nov-2018 Instruction Type:Patient Education How [...] tion Online using Patient Portal and [employer] Apps Indication:Nonsmoker Start:25-Jul-2020 Instruction Type:Patient Education Patient Instructions Indication:Nonsmoker Start:02-Jul-2020 Instruction Type:Provider Instructions for Treatment How to Access Health Informa tion Online using Patient Portal and [employer] Apps Indication:Nonsmoker Start:02-Jul-2020 Instruction Type:Patient Education How [...] for Treatment DISCONTINUED - NMR Profile ( [id number]) Indication:Elevated cholesterol Start:01-Nov-2018 Instruction Type:Patient Education DISCONTINUED - METABOLIC HERNANDES EL, COMPREHENSIVE ([id number]) Indication:Elevated cholesterol Start:01-Nov-2018 Instruction Type:Patient Education How [...] tion Online using Patient Portal and 3rd [employer] Apps Indication:Nonsmoker Start:25-Jul-2020 Instruction Type:Patient Education Patient Instructions Indication:Nonsmoker Start:02-Jul-2020 Instruction Type:Provider Instructions for Treatment How to Access Health Informa tion Online using Patient Portal and 3[employer] Apps Indication:Nonsmoker Start:02-Jul-2020 Instruction Type:Patient Education How [...] for Treatment DISCONTINUED - NMR Profile ( [id number]) Indication:Elevated cholesterol Start:01-Nov-2018 Instruction Type:Patient Education DISCONTINUED - METABOLIC HERNANDES EL, COMPREHENSIVE ([id number]) Indication:Elevated cholesterol Start:01-Nov-2018 Instruction Type:Patient Education How [...] for Treatment DISCONTINUED - NMR Profile ( [id number]) Indication:Elevated cholesterol Start:01-Nov-2018 Instruction Type:Patient Education DISCONTINUED - METABOLIC HERNANDES EL, COMPREHENSIVE ([id number]) Indication:Elevated cholesterol Start:01-Nov-2018 Instruction Type:Patient Education How [...] for Treatment DISCONTINUED - NMR Profile ( [id number]) Indication:Elevated cholesterol Start:01-Nov-2018 Instruction Type:Patient Education DISCONTINUED - METABOLIC HERNANDES EL, COMPREHENSIVE ([id number]) Indication:Elevated cholesterol Start:01-Nov-2018 Instruction Type:Patient Education How [...] Instruction Type:Provider Instructions for Treatment Advance Directives No Advanced Directives Records Found Name Dates Details Immunization Registry [place] - Effective on 03/23/2018. Expiration date unspecified Effective:23-Mar-2018 Name Dates Details Immunization Registry [place] - Effective on 03/23/2018. Expiration date unspecified Effective:23-Mar-2018 Name Dates Details Immunization Registry [place] - Effective on 03/23/2018. Expiration date unspecified Effective:23-Mar-2018 Name Dates Details Immunization Registry [place] - Effective on 03/23/2018. Expiration date unspecified Effective:23-Mar-2018 Name Dates Details Immunization Registry [place] - Effective on 03/23/2018. Expiration date unspecified Effective:23-Mar-2018 Name Dates Details Immunization Registry [place] - Effective on 03/23/2018. Expiration date unspecified Effective:23-Mar-2018 Name Dates Details Immunization Registry [place] - Effective on 03/23/2018. Expiration date unspecified Effective:23-Mar-2018 Name Dates Details Immunization Registry [place] - Effective on 03/23/2018. Expiration date unspecified Effective:23-Mar-2018 Name Dates Details Immunization Registry [place] - Effective on 03/23/2018. Expiration date unspecified Effective:23-Mar-2018 Name Dates Details Immunization Registry [place] - Effective on 03/23/2018. Expiration date unspecified Effective:23-Mar-2018 Name Dates Details Immunization Registry [place] - Effective on 03/23/2018. Expiration date unspecified Effective:23-Mar-2018 Name Dates Details Immunization Registry [place] - Effective on 03/23/2018. Expiration date unspecified Effective:23-Mar-2018 Name Dates Details Immunization Registry [place] - Effective on 03/23/2018. Expiration date unspecified Effective:23-Mar-2018 Advance Directive Response Recorded Date/ Time Living Will Yes May 08, 2 022 1:17pm Power of Motor Electrician Yes May 08, 2022 1:17pm Name of Medical Power of Motor Electrician BROTHER VENECIA May 08, 2022 1:17pm Name Dates Details Immunization Registry [place] - Effective on 03/23/2018. Expiration date unspecified Effective:23-Mar-2018 Name Dates Details Immunization Registry [place] - Effective on 03/23/2018. Expiration date unspecified Effective:23-Mar-2018 Name Dates Details Immunization Registry [place] - Effective on 03/23/2018. Expiration date unspecified Effective:23-Mar-2018 Advance Directive Response Recorded Date/ Time Living Will Yes September 10, 2022 10:30am Power of Motor Electrician Yes September 10 10:30am Name Dates Details Immunization Registry [place] - Effective on 03/23/2018. Expiration date unspecified Effective:23-Mar-2018 Advance Directive Response Recorded Date/ Time Name of Medical Power of Motor Electrician /VENECIA RG September 10, 2022 10:30am Living Will Yes September 10, 2022 10:30am Power of Motor Electrician Yes September 10 10:30am Name Dates Details Immunization Registry [place] - Effective on 03/23/2018. Expiration date unspecified Effective:23-Mar-2018 Name Dates Details Immunization Registry [place] - Effective on 03/23/2018. Expiration date unspecified Effective:23-Mar-2018 Name Dates Details Immunization Registry [place] - Effective on 03/23/2018. Expiration date unspecified Effective:23-Mar-2018 Advance Directive Response Recorded Date/ Time Name of Medical Power of Motor Electrician April 29, 2023 8:39am Living Will Yes April 29, 023 8:39am Power of Motor Electrician Yes April 29, 2023 8:39am Advance Directive Response Recorded Date/ Time Living Will Yes April 29, 2 023 9:39am Power of Motor Electrician Yes April 29, 2023 9:39am Summary Purpose Chief Complaint and Reason for Visit Chief Complaint LEFT LEG EVLA Reason for Visit Leg pain, left Varicose veins of left lower extremity with inflammation Chronic venous insufficiency Chief Complaint LEFT LEG EVLA SCREENING Reason for Visit Leg pain, left Varicose veins of left lower extremity with inflammation Chronic venous insufficiency Chief Complaint SCREENING RIGHT KNEE [place] PROTOCOL Chief Complaint SCREENING RIGHT KNEE [place] PROTOCOL RT TOTAL KNEE W [place] Chief Complaint RT TOTAL KNEE W [place] TRK/ TO FAX EMPLOYEE COVID TEST Chief Complaint PREOP Endovenous Laser Ablation Reason for Visit Leg pain, left Varicose veins of left lower extremity with inflammation Chronic venous insufficiency Chief Complaint PREOP Endovenous Laser Ablation SCREENING Reason for Visit Leg pain, left Varicose veins of left lower extremity with inflammation Chronic venous insufficiency Chief Complaint SCREENING CONSULT-PREVIOUS SURGERY W/DR. DONAHUE S/P EVLA,PAINFUL RLE VARICOSITY, ASSESS FOR REFLUX Reason for Visit Symptomatic varicose veins of right lower extremity Varicose veins of left lower extremity with inflammation Chronic venous insufficiency Chief Complaint Admit Date BODY COMP August 02, 2024 3:2 0pm Chief Complaint Admit Date BODY COMP August 02, 2024 3:2 0pm SCREENING August 17, 2024 12:2 4pm spotting, vaginal heaviness August 22 2 025 11:32am Reason for Visit Admit Date Postmenopausal bleeding August 22, 2024 11:32am Stenosis, cervix August 22, 2024 11:3 2am Chief Complaint Admit Date BODY COMP August 02, 2024 3:2 0pm SCREENING August 17, 2024 12:2 4pm spotting, vaginal heaviness August 22 025 11:32am PMB August 25, 2024 7:3 2am Additional Source Comments INFORMATION SOURCE (unrecogn ized section and content) DATE CREATED AUTHOR 08/15/2019 [facility] ([place]) DATE CREATED AUTHOR AUTHOR'S ORGANIZ ATION 08/09/2022 [facility] DATE CREATED AUTHOR AUTHOR'S ORGANIZ ATION 03/26/2025 [facility] Care Teams (unrecognized sec tion and content) Team Status: Active Member Role Status Dates Kaylynn Ramirez NP, GASATERIA ATTENDANT-C Family Provider Active JEAN Figueroa Primary Care Provider Active Team Status: Active Member Role Status Dates Dr. Tyler Donahue MD Attending Provider, Referring P david Active No Primary Care Physician Primary Care Provider Active Team Status: Inactive Member Role Status Dates JEAN Figueroa Primary Care Mateoi blake, Attending Provider, Referring Provider Active Team Status: Inactive Member Role Status Dates Dr. Tyler Donahue MD Attending Provider, Referring P rovider Active No Primary Care Physician Primary Care Provider Active Team Status: Inactive Member Role Status Dates Herlinda Lopez , GASATERIA ATTENDANT-C Primary Care Provider Active Dr. Quinn Melissa MD Attending Provider, Referring P rovider Active Team Status: Inactive Member Role Status Dates Herlinda Lopez , GASATERIA ATTENDANT-C Primary Care Provider, Referring Provider Active Roni ANGEL PA Attending Provider Active Team Status: Active Member Role Status Dates Herlinda Lopez GASATERIA ATTENDANT-C Primary Care Provider Active Dr. Derrek Baez MD Attending Provider Activ e Dr. Tyler Donahue MD Referring Provider Active Team Status: Inactive Member Role Status Dates Herlinda Lopez , GASATERIA ATTENDANT-C Primary Care Provider Active Dr. Tyler Donahue MD Attending Provider, Referring P rovider Active Team Status: Inactive Member Role Status Dates Herlinda Lopez , GASATERIA ATTENDANT-C Primary Care Provider, Referring Provider Active STANLEY Main Attending Provider Active Team Status: Active Member Role Status Dates Herlinda Lopez GASATERIA ATTENDANT-C Primary Care Provider Active Dr. Livan Croft MD Attending Provider Active Team Status: Inactive Member Role Status Dates Herlinda Lopez GASATERIA ATTENDANT-C Primary Care Provider Active STANLEY Main Attending Provider, Referring Provid er Active Team Status: Active Member Role Status Dates Herlinda Lopez GASATERIA ATTENDANT-C Primary Care Provider Active Team Status: Inactive Member Role Status Dates Herlinda Lopez GASATERIA ATTENDANT-C Primary Care Provider Active Start: August 02, 2024 End: August 02, 2024 Herlinda Lopez GASATERIA ATTENDANT-C Attending Provider Active Start: August 02, 2024 End: August 02, 2024 Herlinda Lopez GASATERIA ATTENDANT-C Referring Provider Active Start: August 02, 2024 End: August 02, 2024 Team Status: Active Member Role Status Dates Herlinda Lopez GASATERIA ATTENDANT-C Primary Care Provider Active Start: August 03, 2024 Herlinda Lopez GASATERIA ATTENDANT-C Attending Provider Active Start: August 03, 2024 Herlinda Lopez GASATERIA ATTENDANT-C Referring Provider Active Start: August 03, 2024 Team Status: Inactive Member Role Status Dates Herlinda Lopez GASATERIA ATTENDANT-C Primary Care Provider Active Start: August 03, 2024 End: August 03, 2024 Herlinda Lopez GASATERIA ATTENDANT-C Attending Provider Active Start: August 03, 2024 End: August 03, 2024 Herlinda Lopez GASATERIA ATTENDANT-C Referring Provider Active Start: August 03, 2024 End: August 03, 2024 Team Status: Inactive Member Role Status Dates Herlinda Lopez GASATERIA ATTENDANT-C Primary Care Provider Active Start: August 17, 2024 End: August 17, 2024 Herlinda Lopez GASATERIA ATTENDANT-C Attending Provider Active Start: August 17, 2024 End: August 17, 2024 Herlinda Lopez GASATERIA ATTENDANT-C Referring Provider Active Start: August 17, 2024 End: August 17, 2024 Team Status: Inactive Member Role Status Dates Herlinda Lopez GASATERIA ATTENDANT-C Primary Care Provider Active Start: August 22, 2024 End: August 22, 2024 Herlinda Lopez NP-C Referring Provider Active Start: August 22, 2024 End: August 22, 2024 Tanvi Rodriguez NP, GASATERIA ATTENDANT-C Attending Provider Active Start: August 22, 2024 End: August 22, 2024 Team Status: Inactive Member Role Status Dates Herlinda Lopez GASATERIA ATTENDANT-C Primary Care Provider Active Start: August 25, 2024 End: August 25, 2024 Tanvi Rodriguez NP, GASATERIA ATTENDANT-C Attending Provider Active Start: August 25, 2024 End: August 25, 2024 Tanvi Rodriguez NP, GASATERIA ATTENDANT-C Referring Provider Active Start: August 25, 2024 End: August 25, 2024 Team Status: Active Member Role/Relationship Status Dates Herlinda Lopez NP-C Primary care physician Active Team Status: Inactive Member Role/Relationship Status Dates Herlinda Lopez GASATERIA ATTENDANT-C Primary care physician Active Start: February 08, 2025 End: February 08, 2025 Herlinda Lopez NP-C Attending physician Active Start: February 08, 2025 End: February 08, 2025 Herlinda Lopez NP-C Referring Provider Active Start: February 08, 2025 End: February 08, 2025 Goals (unrecognized section and content) Goals may be documented in a n alternate sectionGoals may be documented in an alternate sectionGoals may be documented in an alternate sectionGoals may be documented in an alternate sectionGoals may be documented in an alternate sectionGoals may be documented in an alternate sectionGoals may be documented in an alternate sectionGoals may be documented in an alternate sectionGoals may be documented in an alternate section FOR RECORDS PERTAINING TO PATIENTS WHO ARE [...] BE BASED ON THE PRIMARY CLINICAL RECORDS. [facility] provides no warranty or guarantee of the accuracy or completeness of information in this document.
[2025-04-14 13:14] LABS: Hematocrit 41.9 % (37-47); Hemoglobin 13.5 g/dL (12.0-15.0); Immature Granulocytes Count 0.030 X10^3/uL (0.0-0.0); Mean Corp Hgb Conc 32.2 g/dL (32-36); Mean Corpuscular Volume 89.3 fL (81-99); Mean Platelet Vol. 11.3 fl (6.2-12.0); NRBC Flagged by Analyzer 0 % (0-5); Platelet Count 399 K/mm3 (150-450); RBC Distribution Width CV 14.1 % (11.6-14.6); RBC Distribution Width SD 46.2 fl (35.1-43.9); Red Blood Count 4.69 M/mm3 (4.2-5.4); White Blood Count 9.8 K/mm3 (4.4-11.0)
[2025-04-14 13:41] LABS: CRP < 3.00 mg/L (0.0-3.0)
[2025-04-20 10:08] LABS: Arsenic 7245 2 ug/L (0-9); Lead, Blood 1.0 ug/dL (0.0-3.4); Mercury, Blood 85324 < 1.0 ug/L (0.0-14.9)
== END | disposition home or self-care (01) ==
LOC: LAB 12:30
PROVIDERS: PCP Nurse Practitioner Family; Referring Provider Specialist; Visit Provider Specialist
DX: Z96.642 Presence of left artificial hip joint (principal)
CPT/HCPCS: 36415; 82175; 83655; 83825; 85025; 85652; 86140

== ENCOUNTER → 2025-04-26 | Outpatient (CLI) | payer MEDICARE, OTHER, SELFPAY | END | disposition home or self-care (01) | PROVIDERS: PCP Nurse Practitioner Family; Referring Provider Specialist; Visit Provider Specialist | DX: M16.12 Unilateral primary osteoarthritis, left hip (principal) | CPT/HCPCS: 36415 ==

== ENCOUNTER 2025-05-03 06:15 | Day surgery (SDC) | payer MEDICARE, OTHER, SELFPAY ==
[2025-05-03] VITALS (7 sets, daily range): BP systolic 101–139; BP diastolic 59–86; PULSE 57–74; RESP 16; TEMP 36.1–36.3; O2SAT 97–100; BMI 28.7
--- OUTSIDE RECORDS SUMMARY | 2025-05-03 06:18 | XMS RPT_ITS | CCD ---
Author Organization [facility] Care Team Providers Care Transfer Worker Name Role Phone YrisKaylynn grace E Unavailable Venecia Unger Unavailable Tyler Donahue Unavailable Igor Pickard Unavailable Mily Chu Unavailable Unavailable Gravius, Carolyn Unavailable Unavailable Liberty, Sara Unavailable Unavailable Unavailable Unavailable YrisKaylynn grace E Unavailable Venecia Unger Unavailable Tyler Donahue Unavailable Igor Pickard Unavailable Yoly Johnson Unavailable Unavailable Mily Chu Unavailable Unavailable Unavailable Unavailable Marlon Bright Unavailable Unavailable Unavailable Unavailable John Obregon Unavailable aMrlon Friedman Unavailable Unavailable Yoly Johnson Unavailable Unavailable Marlon Bright Unavailable Unavailable Lj, Sara Unavailable Unavailable Ashley SALDIVAR Kathrine Unavailable Venecia Unger Unavailable Tyler Donahue MD Unavailable Igor Pickard MD Unavailable [phone] Dr. John Obregon Unavailable Marlon Friedman LPN Unavailable Unavailable Yoly Johnson RN Unavailable Unavailable Unavailable Unavailable Cisanjay Kaylynn Unavailable Unavailable Ciesa, Kaylynn Unavailable Mary Hernandez LPN Unavailable Unavailable Herlinda Lopez CNP Unavailable Keon MA, Zaida Unavailable Unavailable Kaylynn Ramirez Attending Unavailable Kaylynn Ramirez Consulting Unavailable Fast DO, Isaura A Referring Unavailable John CONCRETE FORM SETTER, Herlinda Unavailable John, GENERAL SUPERINTENDENT-C Herlinda Primary Care Provider John, GENERAL SUPERINTENDENT-C Herlinda Referring Provider STANLEY Glass Attending Provider John, GENERAL SUPERINTENDENT-C Herlinda Primary Care Provider Dr. Derrek Baez Attending Provider Dr. Tyler Donahue Referring Provider John, GENERAL SUPERINTENDENT-C Herlinda Primary Care Provider John, GENERAL SUPERINTENDENT-C Herlinda Referring Provider STANLEY Dacosta Attending Provider [phone] iLvan Croft Attending Provider [phone] John GENERAL SUPERINTENDENT-C, Herlinda Primary Care Provider John GENERAL SUPERINTENDENT-C, Herlinda Attending Provider John GENERAL SUPERINTENDENT-C, Herlinda Referring Provider Michael GENERAL SUPERINTENDENT-C, Tanvi Attending Provider Michael GENERAL SUPERINTENDENT-C, Taniv Referring Provider John GENERAL SUPERINTENDENT-C, Herlinda Primary Care Physician John GENERAL SUPERINTENDENT-C, Herlinda Attending Physician John GENERAL SUPERINTENDENT-C, Herlinda Referring Provider John, Herlinda Attending Unavailable John, Herlinda Referring Unavailable John, Herlinda Primary Care Unavailable John, Herlinda Attending Unavailable John, Herlinda Referring Unavailable John, Herlinda Primary Care Unavailable [place] GENERAL SUPERINTENDENT, Tanvi Attending Unavailable John, Herlinda Referring Unavailable John, Herlinda Primary Care Unavailable [place] GENERAL SUPERINTENDENT, Tanvi Attending Unavailable [place] GENERAL SUPERINTENDENT, Tanvi Referring Unavailable John, Herlinda Primary Care Unavailable John, Herlinda Referring Unavailable John, Herlinda Primary Care Unavailable John, Herlinda Attending Unavailable Friend, Mahesh Attending Unavailable Herlinda Lopez Primary Care Unavailable Herlinda Lopez Attending Unavailable Herlinda Lopez Referring Unavailable Herlinda Lopez Primary Care Unavailable Herlinda Lopez Primary Care [...] Start: 05-08-2022 take 1 capsule by mo alh once daily Vitamin D3-Vitamin K2 Active 1 [...] K Start: 06-14-2019 take 1 capsule by [facility] once daily Vitamin D3 125 MCG (5000 UT) Oral Capsule 1 (one) Capsule daily for 30 days Quantity: 30 {Capsule} Refills: 3 Ordered: 14-Jun-2019 Ashley Kaylynn Start : 14-Jun-2019 Active Comments: takes vitamin d with K Start: 11-01-2018 take 1 capsule by [facility] once daily Vitamin D3 5000 UNIT Oral Capsule 1 (one) Capsule daily for 30 days Quantity: 30 {Capsule} Refills: 3 Ordered: 01-Nov-2018 Ashley SALDIVAR Kaylynn Marin Yrischloejose SALDIVAR Kaylynn Marin Start : 01-Nov-2018 Active Start: 03-23-2018 take 1 tablet by [facility] once daily Vitamin D3 2000 UNIT Oral [...] Provitamin D2 Compound Start: 017 End: Ergocalciferol 78240 UNIT Oral Capsule 1 (one) Capsule twice [...] stableCrestor: had SELipitor: muscle cramps.Dinesh barrow at [place] was previous PCP LDL 187 .Health poin t 3-4 /weekIncrese zocor from 10-20 mg in 2-3 weeks when muscle aches are better, now stableWill try [place] 3 from Food, Red yeast Rice, slow release NiacinCrestor: had SELipitor: muscle cramps.Dinesh barrow at [place] was previous PCP Health point 3-4 /we ekIncrese zocor from 10-20 mg in 2-3 weeks when muscle aches are better, now stableCrestor: had SELipitor: muscle cramps.Dinesh barrow at [place] was previous PCP Crestor: had SELipit or: muscle cramps. Had some SE with zocor but then tolerated. Dinesh barrow at [place] was previous PCP NMR profile, go from [place] family hx. takes Zocor but stopped this week, muscle cramps are too bothersome (feet, legs, arms, etc). NMR profile quite el evated, has been off statin. declines Repatha-would d/c zocor and switch to pravastatin or fluvastatin which may be better tolerated with less myopathy. Also advised to take with [id number] family hx. took Zocor but severe leg/foot, [...] was a 3 point score for a dbwkca-lrzu-yckp thyroid nodule shape when in fact her nodule is svuux-drza-shke. If this amendment is granted then her [...] Interpretation Reference Range Facility Thyroidon 03-02-2025 Thyroid [facility] Imaging Services [address] [place], [place] [address] Thyroid MR#: [id number] Acct: [id number] Name: NERISSA RG Rep #: [id number] : 1950 F 74 From: Terrance Stewart MD PCP: JOSE MANUEL FigueroaC Status: REG CLI Study: Thyroid Date of Exam: 03/02/25 Exam# [id number] Ordering Dr: Kiet Crawford MD PROCEDURE: THYROID [...] no more than 2 nodules. Reading Location: [id number] CC: JEAN Lopez; Dr. Kiet Crawford MD Cotton Tipper: Signed Normal [facility] Absolute lymphocyte countOrd ered By: Herlinda Lopez on 02-08-2025 Lymphocytes Auto (Unsp spec) [#/Vol] 3.32 10*3/uL 0.83-4.51 [facility] Absolute neutrophil countOrd ered By: Herlinda Lopez on 02-08-2025 Neutrophils (Bld) [#/Vol] 4.2 10*3/uL 2.0-7.7 [facility] Anion gap in Serum or Plasma Ordered By: Herlinda Lopez on 02-08-2025 Anion gap [Moles/Vol] 12 mmol/L 5- [facility] Automated lymphocyte count a s percentage of total leukocytesOrdered By: Herlinda Lopez on 02-08-2025 Lymphocytes/100 WBC Auto (Unsp spec) 40.0 % - [facility] BUN/creatinine ratioOrdered By: Herlinda Lopez on 02-08-2025 Urea nitrogen/Creatinine [Mass ratio] 22.5 mg/mg High 10-20 [facility] Basophil percentageOrdered B y: Herlinda Lopez on 02-08-2025 Basophils/100 WBC (Bld) 0.7 % 0-1 [facility] Bilirubin, totalOrdered By: Herlinda Lopez on 02-08-2025 Bilirubin [Mass/Vol] 0.59 mg/dL 0.00-1.30 [facility] CBC W/Diff, Automatedon 01-17 Absolute Lymph 3.32 X10 3/uL Normal 0.83-4.51 [facility] Comment on above: Performed By: #### L 500.4100, L503.0106, L500.4050, L501.9985, L506.0200, L100.0100 #### [facility] [address] [place], [address] Absolute Neut 4.2 X10 3/uL Normal 2.0-7.7 [facility] Comment on above: Performed By: #### L 500.4100, L503.0106, L500.4050, L501.9985, L506.0200, L100.0100 #### [facility] [address] [place], [address] Basophils/100 WBC (Bld) 0.7 % Normal 0-1 [facility] Comment on above: Performed By: #### L 500.4100, L503.0106, L500.4050, L501.9985, L506.0200, L100.0100 #### [facility] [address] [place], [address] Eosinophils/100 WBC (Bld) 2.4 % Normal 0-5 [facility] Comment on above: Performed By: #### L 500.4100, L503.0106, L500.4050, L501.9985, L506.0200, L100.0100 #### [facility] [address] [place], [address] Erythrocyte distribution width (RBC) [Ratio] 14.1 % Normal 11.6-14.6 [facility] Comment on above: Performed By: #### L 500.4100, L503.0106, L500.4050, L501.9985, L506.0200, L100.0100 #### [facility] [address] [place], [address] Hematocrit (Bld) [Volume fraction] 43.1 % Normal 37-47 [facility] Comment on above: Performed By: #### L 500.4100, L503.0106, L500.4050, L501.9985, L506.0200, L100.0100 #### [facility] [address] [place], [address] Hemoglobin (Bld) [Mass/Vol] 14.0 g/dL Normal 12.0-15.0 [facility] Comment on above: Performed By: #### L 500.4100, L503.0106, L500.4050, L501.9985, L506.0200, L100.0100 #### [facility] [address] [place], [address] IG% 0.100 Normal 0.0-0.9 [facility] Comment on above: Result Comment: IG% - Immature Granulocytes (promyelocytes, myelocytes and metamyelocytes) > 1% indicates that a LEFT SHIFT is Present. Performed By: #### L 500.4100, L503.0106, L500.4050, L501.9985, L506.0200, L100.0100 #### [facility] [address] [place], [address] Lymphocytes/100 WBC (Bld) 40.0 % Normal 19-41 [facility] Comment on above: Performed By: #### L 500.4100, L503.0106, L500.4050, L501.9985, L506.0200, L100.0100 #### [facility] [address] [place], [address] MCH (RBC) [Entitic mass] 28.6 pg Normal 27.0-32.0 [facility] Comment on above: Performed By: #### L 500.4100, L503.0106, L500.4050, L501.9985, L506.0200, L100.0100 #### [facility] [address] [place], [address] MCHC (RBC) [Mass/Vol] 32.5 g/dL Normal 32-36 [facility] Comment on above: Performed By: #### L 500.4100, L503.0106, L500.4050, L501.9985, L506.0200, L100.0100 #### [facility] [address] [place], [address] MCV (RBC) [Entitic vol] 88.1 fL Normal 81-99 [facility] Comment on above: Performed By: #### L 500.4100, L503.0106, L500.4050, L501.9985, L506.0200, L100.0100 #### [facility] [address] [place], [address] Monocytes/100 WBC (Bld) 5.7 % Normal 0-10 [facility] Comment on above: Performed By: #### L 500.4100, L503.0106, L500.4050, L501.9985, L506.0200, L100.0100 #### [facility] [address] [place], [address] Neutrophils/100 WBC (Bld) 51.1 % Normal 47-70 [facility] Comment on above: Performed By: #### L 500.4100, L503.0106, L500.4050, L501.9985, L506.0200, L100.0100 #### [facility] [address] [place], [address] Nucleated RBC (Bld) [#/Vol] 0 10*3/uL Normal 0-5 [facility] Comment on above: Performed By: #### L 500.4100, L503.0106, L500.4050, L501.9985, L506.0200, L100.0100 #### [facility] [address] [place], [address] Platelet mean volume (Bld) [Entitic vol] 10.8 fL Normal 6.2-12.0 [facility] Comment on above: Performed By: #### L 500.4100, L503.0106, L500.4050, L501.9985, L506.0200, L100.0100 #### [facility] [address] [place], [address] Platelets (Bld) [#/Vol] 392 10*3/uL Normal 150-450 [facility] Comment on above: Performed By: #### L 500.4100, L503.0106, L500.4050, L501.9985, L506.0200, L100.0100 #### [facility] [address] [place], [address] RBC (Bld) [#/Vol] 4.89 10*6/uL Normal 4.2-5.4 [facility] Comment on above: Performed By: #### L 500.4100, L503.0106, L500.4050, L501.9985, L506.0200, L100.0100 #### [facility] [address] [place], [address] RDW SD 45.2 fl High 35.1-43.9 [facility] Comment on above: Performed By: #### L 500.4100, L503.0106, L500.4050, L501.9985, L506.0200, L100.0100 #### [facility] [address] [place], [address] WBC (Bld) [#/Vol] 8.3 10*3/uL Normal 4.4-11.0 [facility] Comment on above: Performed By: #### L 500.4100, L503.0106, L500.4050, L501.9985, L506.0200, L100.0100 #### [facility] [address] [place], [place], [id number] Calculated very low density lipoprotein (VLDL) cholesterol measurementOrdered By: Herlinda Lopez on 02-08-2025 Calculated very low density lipoprotein (VLDL) cholesterol measurement 23 mg/dL 5-40 [facility] Carbon dioxide, total [Moles /volume] in Central venous bloodOrdered By: Herlinda Lopez on 02-08-2025 CO2 [Moles/Vol] 23.2 mmol/L 21.0-32.0 [facility] Chloride assayOrdered By: Britt Lopez on 02-08-2025 Chloride [Moles/Vol] 103 mmol/L 98-108 [facility] Comprehensive Metabolic Prof ilon 02-08-2025 Albumin [Mass/Vol] 4.4 g/dL Normal 3.4-4.8 [facility] Comment on above: Performed By: #### L 500.4100, L503.0106, L500.4050, L501.9985, L506.0200, L100.0100 #### [facility] [address] [place], [address] Albumin/Globulin [Mass ratio] 1.5 {ratio} Normal 0.9-2.4 [facility] Comment on above: Performed By: #### L 500.4100, L503.0106, L500.4050, L501.9985, L506.0200, L100.0100 #### [facility] [address] [place], [place], [id number] ALK PHOS 75 U/L Normal 35-104 [facility] Comment on above: Performed By: #### L 500.4100, L503.0106, L500.4050, L501.9985, L506.0200, L100.0100 #### [facility] [address] [place], [address] ALT [Catalytic activity/Vol] 14 U/L Normal <=34 [facility] Comment on above: Performed By: #### L 500.4100, L503.0106, L500.4050, L501.9985, L506.0200, L100.0100 #### [facility] [address] [place], [address] AST [Catalytic activity/Vol] 21 U/L Normal <=31 [facility] Comment on above: Performed By: #### L 500.4100, L503.0106, L500.4050, L501.9985, L506.0200, L100.0100 #### [facility] [address] [place], [address] Bilirubin [Mass/Vol] 0.59 mg/dL Normal 0.00-1.30 [facility] Comment on above: Performed By: #### L 500.4100, L503.0106, L500.4050, L501.9985, L506.0200, L100.0100 #### [facility] [address] [place], [address] BUN/CRE 22.5 RATIO High 10-20 [facility] Comment on above: Performed By: #### L 500.4100, L503.0106, L500.4050, L501.9985, L506.0200, L100.0100 #### [facility] [address] [place], [address] Calcium [Mass/Vol] 9.5 mg/dL Normal 7.6-11.0 [facility] Comment on above: Performed By: #### L 500.4100, L503.0106, L500.4050, L501.9985, L506.0200, L100.0100 #### [facility] [address] [place], [address] Chloride [Moles/Vol] 103 mmol/L Normal 98-108 [facility] Comment on above: Performed By: #### L 500.4100, L503.0106, L500.4050, L501.9985, L506.0200, L100.0100 #### [facility] [address] [place], [address] CO2 [Moles/Vol] 23.2 mmol/L Normal 21.0-32.0 [facility] Comment on above: Performed By: #### L 500.4100, L503.0106, L500.4050, L501.9985, L506.0200, L100.0100 #### [facility] [address] [place], [address] Creatinine [Mass/Vol] 0.84 mg/dL Normal 0.70-1.20 [facility] Comment on above: Performed By: #### L 500.4100, L503.0106, L500.4050, L501.9985, L506.0200, L100.0100 #### [facility] [address] [place], [address] GAP 12 Normal 5-15 [facility] Comment on above: Performed By: #### L 500.4100, L503.0106, L500.4050, L501.9985, L506.0200, L100.0100 #### [facility] [address] [place], [address] GFR/1.73 sq M.predicted among non-blacks MDRD (S/P/Bld) [Vol rate/Area] 74 mL/min/{1.73_m2} Normal >60 [facility] Comment on above: Result Comment: mL/m in/1.73m2 CKD-EPI Creatinine Equation (2020) Performed By: #### L 500.4100, L503.0106, L500.4050, L501.9985, L506.0200, L100.0100 #### [facility] [address] [place], [address] Globulin (S) [Mass/Vol] 3.0 g/dL Normal 2.2-4.2 [facility] Comment on above: Performed By: #### L 500.4100, L503.0106, L500.4050, L501.9985, L506.0200, L100.0100 #### [facility] [address] [place], [address] Glucose [Mass/Vol] 91 mg/dL Normal 70-99 [facility] Comment on above: Performed By: #### L 500.4100, L503.0106, L500.4050, L501.9985, L506.0200, L100.0100 #### [facility] [address] [place], [address] Potassium [Moles/Vol] 4.1 mmol/L Normal 3.3-5.1 [facility] Comment on above: Performed By: #### L 500.4100, L503.0106, L500.4050, L501.9985, L506.0200, L100.0100 #### [facility] [address] [place], [address] Sodium [Moles/Vol] 138 mmol/L Normal 133-145 [facility] Comment on above: Performed By: #### L 500.4100, L503.0106, L500.4050, L501.9985, L506.0200, L100.0100 #### [facility] [address] [place], [address] T PROT 7.4 g/dL Normal 5.9-8.4 [facility] Comment on above: Performed By: #### L 500.4100, L503.0106, L500.4050, L501.9985, L506.0200, L100.0100 #### [facility] [address] [place], [address] Urea nitrogen [Mass/Vol] 19 mg/dL Normal 4-19 [facility] Comment on above: Performed By: #### L 500.4100, L503.0106, L500.4050, L501.9985, L506.0200, L100.0100 #### [facility] [address] [place], [address] Eosinophil percentageOrdered By: Herlinda Lopez on 02-08-2025 Eosinophils/100 WBC (Bld) 2.4 % 0-5 [facility] Erythrocyte distribution wid th ratioOrdered By: Herlinda Lopez on 02-08-2025 Erythrocyte distribution width (RBC) [Ratio] 14.1 % 11.6-14.6 [facility] Erythrocyte distribution wid th standard deviationOrdered By: Herlinda Lopez on 02-08-2025 Erythrocyte distribution width (RBC) [Ratio] 45.2 fl High 35.1-43.9 [facility] Folate [Mass/volume] in Seru m or PlasmaOrdered By: Herlinda Lopez on 02-08-2025 Folate [Mass/Vol] ng/mL High 4.60-34.80 [facility] Comment on above: Hemolysis, Results w ill be affected, Requires Recollection. Folates,Serum (Folic Acid)on 02-08-2025 FOLATES,SERUM > 40.00 High 4.60-34.80 [facility] Comment on above: Order Comment: N Result Comment: Hemo lysis, Results will be affected, Requires Recollection. Performed By: #### L 500.4100, L503.0106, L500.4050, L501.9985, L506.0200, L100.0100 #### [facility] [address] [place], [address] Glomerular filtration rate ( GFR) estimation/1.73 sq m using serum, plasma, or whole bOrdered By: Herlinda Lopez on 02-08-2025 GFR/1.73 sq M.predicted among non-blacks MDRD (S/P/Bld) [Vol rate/Area] 74 mL/min/{1.73_m2} >60 [facility] Comment on above: mL/min/1.73m2 CKD-EP I Creatinine Equation (2021) Hematocrit Auto (Bld) [Volum e fraction]Ordered By: Herlinda Lopez on 02-08-2025 Hematocrit (Bld) [Volume fraction] 43.1 % 37-47 [facility] Hemoglobin A1con 02-08-2025 HbA1c (Bld) [Mass fraction] 5.9 % High <=5.6 [facility] Comment on above: Result Comment: Norm al < 5.7 % Prediabetic 5.7 - 6.4 % Diabetic >or= 6.5 % Please note range changes. Performed By: #### L 500.4100, L503.0106, L500.4050, L501.9985, L506.0200, L100.0100 #### [facility] [address] [place], [place], [address] Hemoglobin A1c percentageOrd ered By: Herlinda Lopez on 02-08-2025 HbA1c (Bld) [Mass fraction] 5.9 % High <5.7 [facility] Comment on above: Normal < 5.7 % Predi abetic 5.7 - 6.4 % Diabetic >or= 6.5 % Please note range changes. Hemoglobin measurementOrdere d By: Herlinda Lopez on 02-08-2025 Hemoglobin (Bld) [Mass/Vol] 14.0 g/dL 12.0-15.0 [facility] Immature granulocytes/100 WB C Auto (Bld)Ordered By: Herlinda Lopez on 02-08-2025 Immature granulocytes/100 WBC (Bld) 0.100 % 0.0-0.9 [facility] Comment on above: IG% - Immature Granu locytes (promyelocytes, myelocytes and metamyelocytes) > 1% indicates that a LEFT SHIFT is Present. LDL calc ser/plasOrdered By: Herlinda Lopez on 02-08-2025 Cholesterol in LDL [Mass/Vol] 124 mg/dL [facility] Comment on above: Gmtycqkjqk=424-393 m g/dL & Higher Wxpm=350 mg/dL or greaterFriedwald Equation for LDL-C Laboratory - Chemistry and C hemistry - challengeOrdered By: Herlinda Lopez on 02-08-2025 AST [Catalytic activity/Vol] 21 U/L <32 [facility] Lipid Profileon 02-08-2025 CHOL:HDL 2.96 Normal [facility] Comment on above: Performed By: #### L 500.4100, L503.0106, L500.4050, L501.9985, L506.0200, L100.0100 #### [facility] [address] [place], [address] Cholesterol [Mass/Vol] 222 mg/dL High <=200 [facility] Comment on above: Result Comment: Chol esterol level, Desirable <200 mg/dL Borderline high cholesterol 200-239 mg/dL High cholesterol >=240 mg/dL Recommendations of the NCEP Adult Treatment Panel for the following risk-cutoff thresholds for the [place] population. Performed By: #### L 500.4100, L503.0106, L500.4050, L501.9985, L506.0200, L100.0100 #### [facility] [address] [place], [address] Cholesterol in HDL [Mass/Vol] 75 mg/dL Normal [facility] Comment on above: Result Comment: [place] onal Cholesterol Education Program (NCEP) guidelines: <40 mg/dL: Low HDL-cholesterol (major risk factor for CHD) >= 60 mg/dL: High HDL-cholesterol (negative risk factor for CHD) HDL-cholesterol is affected by a number of factors, e.g. smoking, exercise, hormones, sex and age. Performed By: #### L 500.4100, L503.0106, L500.4050, L501.9985, L506.0200, L100.0100 #### [facility] [address] [place], [address] Cholesterol in LDL [Mass/Vol] 124 mg/dL Normal [facility] Comment on above: Result Comment: Bord xmeqcb=342-180 mg/dL Higher Jydl=833 mg/dL or greater Friedwald Equation for LDL-C Performed By: #### L 500.4100, L503.0106, L500.4050, L501.9985, L506.0200, L100.0100 #### [facility] [address] [place], [address] Cholesterol in VLDL [Mass/Vol] 23 mg/dL Normal 5-40 [facility] Comment on above: Performed By: #### L 500.4100, L503.0106, L500.4050, L501.9985, L506.0200, L100.0100 #### [facility] [address] [place], [address] Triglyceride [Mass/Vol] 114 mg/dL Normal [facility] Comment on above: Result Comment: The drugs N-Acetylcysteine and Metamizole may falsely depress this assay. Normal range: <150 mg/dL Borderline High: 150-199 mg/dL High: 200-499 mg/dL Very High: >500 mg/dL Performed By: #### L 500.4100, L503.0106, L500.4050, L501.9985, L506.0200, L100.0100 #### [facility] [address] [place], [place], [id number] MCV (mean corpuscular volume ) determinationOrdered By: Herlinda Lopez on 02-08-2025 MCV (RBC) [Entitic vol] 88.1 fL 81-99 [facility] Mean corpuscular hemoglobin (MCH) determinationOrdered By: Herlinda Lopez on 02-08-2025 MCH (RBC) [Entitic mass] 28.6 pg 27.0-32.0 [facility] Mean corpuscular hemoglobin concentration (MCHC) determinationOrdered By: Herilnda Lopez on 02-08-2025 MCHC (RBC) [Mass/Vol] 32.5 g/dL 32-36 [facility] Mean platelet volume determi nationOrdered By: Herlinda Lopez on 02-08-2025 Platelet mean volume (Bld) [Entitic vol] 10.8 fL 6.2-12.0 [facility] Monocyte percentageOrdered B y: Herlinda Lopez on 02-08-2025 Monocytes/100 WBC (Bld) 5.7 % 0-10 [facility] Neutrophil percentageOrdered By: Herlinda Lopez on 02-08-2025 Neutrophils/100 WBC (Bld) 51.1 % 47-70 [facility] Nucleated red blood cell per centageOrdered By: Herlinda Lopez on 02-08-2025 Nucleated RBC/100 WBC (Bld) [Ratio] 0 % 0-5 [facility] Platelet countOrdered By: Britt Lopez on 02-08-2025 Platelets (Bld) [#/Vol] 392 10*3/uL 150-450 [facility] Potassium measurement (mass/ volume)Ordered By: Herlinda Lopez on 02-08-2025 Potassium (Unsp spec) [Mass/Vol] 4.1 mmol/L 3.3-5.1 [facility] RBC Auto (Bld) [#/Vol]Ordere d By: Herlinda Lopez on 02-08-2025 RBC (Bld) [#/Vol] 4.89 10*6/uL 4.2-5.4 [facility] Screening total cholesterol/ high density lipoprotein (HDL) cholesterol ratioOrdered By: Herlinda Lopez on 02-08-2025 Cholesterol.total/Catarina sterol in HDL [Mass ratio] 2.96 {ratio} [facility] Serum creatinine measurement (mass/volume)Ordered By: Herlinda Lopez on 02-08-2025 Creatinine [Mass/Vol] 0.84 mg/dL 0.70-1.20 [facility] Serum globulin measurementOr dered By: Herlinda Lopez on 02-08-2025 Globulin (S) [Mass/Vol] 3.0 g/dL 2.2-4.2 [facility] Serum glucose measurement (m ass/volume)Ordered By: Herlinda Lopez on 02-08-2025 Glucose [Mass/Vol] 91 mg/dL 70-99 [facility] Serum or plasma alanine martinez otransferase (ALT) measurementOrdered By: Herlinda Lopez on 02-08-2025 ALT [Catalytic activity/Vol] 14 U/L <35 [facility] Serum or plasma albumin delores urement (mass/volume)Ordered By: Herlinda Lopez on 02-08-2025 Albumin [Mass/Vol] 4.4 g/dL 3.4-4.8 [facility] Serum or plasma albumin/glob ulin mass ratioOrdered By: Herlinda Lopez on 02-08-2025 Albumin/Globulin [Mass ratio] 1.5 {ratio} 0.9-2.4 [facility] Serum or plasma alkaline aubrey sphatase measurementOrdered By: Herlinda Lopez on 02-08-2025 ALP [Catalytic activity/Vol] 75 U/L 35-104 [facility] Serum or plasma calcium delores urement (mass/volume)Ordered By: Herlinda Lopez on 02-08-2025 Calcium [Mass/Vol] 9.5 mg/dL 7.6-11.0 [facility] Serum or plasma cholesterol in HDL measurement (mass/volume)Ordered By: Herlinda Lopez on 02-08-2025 Cholesterol in HDL [Mass/Vol] 75 mg/dL >40 [facility] Comment on above: National Cholesterol Education Program (NCEP) guidelines:<40 mg/dL: Low HDL-cholesterol (major risk factor for CHD)>= 60 mg/dL: High HDL-cholesterol (negative risk factor for CHD)HDL-cholesterol is affected by a number of factors, e.g. smoking, exercise, hormones, sex and age. Serum or plasma cholesterol measurement (mass/volume)Ordered By: Herlinda Lopez on 02-08-2025 Cholesterol [Mass/Vol] 222 mg/dL High <201 [facility] Comment on above: Cholesterol level, D esirable <200 mg/dLBorderline high cholesterol 200-239 mg/dLHigh cholesterol >=240 mg/dLRecommendations of the NCEP Adult Treatment Panel for the following risk-cutoff thresholds for the [place] population. Serum or plasma urea nitroge n measurement (mass/volume)Ordered By: Herlinda Lopez on 02-08-2025 Urea nitrogen [Mass/Vol] 19 mg/dL 4-19 [facility] Sodium levelOrdered By: Nata Lopez on 02-08-2025 Sodium [Moles/Vol] 138 mmol/L 133-145 [facility] Total proteinOrdered By: Fuad Lopez on 02-08-2025 Protein [Mass/Vol] 7.4 g/dL 5.9-8.4 [facility] Triglycerides measurementOrd ered By: Herlinda Lopez on 02-08-2025 Triglyceride [Mass/Vol] 114 mg/dL <199 [facility] Comment on above: The drugs N-Acetylcy steine and Metamizole may falsely depress this assay. Normal range: <150 mg/dLBorderline High: 150-199 mg/dLHigh: 200-499 mg/dLVery High: >500 mg/dL Vitamin B12on 02-08-2025 Cobalamin (Vitamin B12) [Mass/Vol] 1122 pg/mL High 180-914 [facility] Comment on above: Performed By: #### L 500.4100, L503.0106, L500.4050, L501.9985, L506.0200, L100.0100 #### [facility] [address] [place], [place], [address] Vitamin B12 ser/plasOrdered By: Herlinda Lopez on 02-08-2025 Cobalamin (Vitamin B12) [Mass/Vol] 1122 pg/mL High 180-914 [facility] White blood cell (WBC) count Ordered By: Herlinda Lopez on 02-08-2025 WBC (Bld) [#/Vol] 8.3 10*3/uL 4.4-11.0 [facility] Pelvic w/ Transvaginalon Pelvic w/ Transvaginal [facility] Imaging Services [address] [place], [place] [id number] Pelvic w/ Transvaginal MR#: [id number] Acct: [id number] Name: NERISSA RG Rep #: [id number] : 1950 F 74 From: Evangelista Cassidy i DO PCP: JEAN Figueroa Status: REG CLI Study: Pelvic w/ Transvaginal Date of Exam: 08/25/24 Exam# [id number] Ordering Dr: Tanvi Rodriguez NP GENERAL SUPERINTENDENT -C PROCEDURE: Pelvic ultrasound, transabdominal and transvaginal. [...] mass or free pelvic fluid. 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 Office Visit Reporton 08-22-2024 General Labor Forklift Operator Office Visit Report [facility]'s [address], [address] [place] [address] OFFICE VISIT Date of Service: 08/22/24 MR#: [id number] Acct: [id number] Name: NERISSA RG Rep #: [id number] : 1950 Provider: JEAN epstein Age/Sex: 74/F Location: [facility] Status: Signed Intake Vital Signs 03/23/24 09:02 08/22/24 11:47 08/22/24 11:56 Height 5 ft 1 in 5 ft 1 in 5 ft 1 in Weight: 153 lb 4 oz BMI 28.9 BP 132/70 H Intake Visit Reasons: spotting, vaginal heaviness Chief Complaint: PMB, vaginal heaviness Machine Iii Coremaker Required: No Is patient in pain?: No [...] Awad 08/22/24 1223 Date Tanvi Rodriguez NP GENERAL SUPERINTENDENT-C Ulises Signature: Date (if applicable) CC: Normal [facility] Breast imaging reportOrdered By: Denia Martinez on 08-17-2024 Study report [facility] Imaging Services [address] [place] [address] SCRN MAMM (CAD)W/SAMANTHA BILAT MR#: [id number] Acct: [id number] Name: NERISSA RG Rep #: [id number] : 1950 F 74 From: Nuvia Martinez MD PCP: Herlinda Lopez NP-C Status: REG C KEITH Study:SCRN MAMM (CAD)W/SAMANTHA BILAT Date of Exa m: 08/17/24 Exam# [id number] Ordering Dr: Dayanara Lopez EXAM: SCRN MAMM [...] be mailed to the patient. Reading Location: [facility] CC: JEAN Lopez ~ Cotton Tipper: Signed [facility] SCRN MAMM (CAD)W/SAMANTHA BILATo n 08-17-2024 SCRN MAMM (CAD)W/SAMANTHA BILAT [facility] Imaging Services [address] [place] [address] SCRN MAMM (CAD)W/SAMANTHA BILAT MR#: [id number] Acct: [id number] Name: NERISSA RG Rep #: [id number] : 1950 F 74 From: Denia Martinez MD PCP: JEAN Figueroa Status: REG CLI Study: SCRN MAMM (CAD)W/SAMANTHA BILAT Date of Exam: 07/12 Exam# [id number] Ordering Dr: Herlinda Lopez EXAM: SCRN MAMM [...] be mailed to the patient. Reading Location: [facility] CC: JEAN Lopez Cotton Tipper: Signed Normal [facility] Albumin DL <= 20 mg/L (U) [M ass/Vol]Ordered By: Herlinda Lopez on 08-03-2024 Urine Random Microalbumin < 12.0 mg/L NO RANGE EST. [facility] Anion gap in Serum or Plasma Ordered By: Herlinda Lopez on 08-03-2024 Anion gap [Moles/Vol] 12 mmol/L 5-15 [facility] BUN/creatinine ratioOrdered By: Herlinda Lopez on 08-03-2024 Urea nitrogen/Creatinine [Mass ratio] 21.3 mg/mg High 10-20 [facility] Bilirubin, totalOrdered By: Herlinda Lopez on 08-03-2024 Bilirubin [Mass/Vol] 0.48 mg/dL 0.00-1.30 [facility] Calculated very low density lipoprotein (VLDL) cholesterol measurementOrdered By: Herlinda Lopez on 08-03-2024 VLDL Cholesterol 20 mg/dL 5-40 [facility] Carbon dioxide, total [Moles /volume] in Central venous bloodOrdered By: Herlinda Lopez on 08-03-2024 CO2 [Moles/Vol] 22.3 mmol/L 21.0-32.0 [facility] Chloride assayOrdered By: Britt Lopez on 08-03-2024 Chloride [Moles/Vol] 103 mmol/L 98-108 [facility] Comprehensive Metabolic Prof ilon 08-03-2024 Albumin [Mass/Vol] 4.2 g/dL Normal 3.4-4.8 [facility] Comment on above: Performed By: #### L 501.9985, L500.4100, L502.0250, L506.1001, L500.4050 #### [facility] [address] [place], [address] Albumin/Globulin [Mass ratio] 1.4 {ratio} Normal 0.9-2.4 [facility] Comment on above: Performed By: #### L 501.9985, L500.4100, L502.0250, L506.1001, L500.4050 #### [facility] [address] [place], [address] ALK PHOS 73 U/L Normal 35-104 [facility] Comment on above: Performed By: #### L 501.9985, L500.4100, L502.0250, L506.1001, L500.4050 #### [facility] [address] [place], [address] ALT [Catalytic activity/Vol] 14 U/L Normal <=34 [facility] Comment on above: Performed By: #### L 501.9985, L500.4100, L502.0250, L506.1001, L500.4050 #### [facility] [address] [place], [address] AST [Catalytic activity/Vol] 19 U/L Normal <=31 [facility] Comment on above: Performed By: #### L 501.9985, L500.4100, L502.0250, L506.1001, L500.4050 #### [facility] [address] [place], [address] Bilirubin [Mass/Vol] 0.48 mg/dL Normal 0.00-1.30 [facility] Comment on above: Performed By: #### L 501.9985, L500.4100, L502.0250, L506.1001, L500.4050 #### [facility] [address] [place], [address] BUN/CRE 21.3 RATIO High 10-20 [facility] Comment on above: Performed By: #### L 501.9985, L500.4100, L502.0250, L506.1001, L500.4050 #### [facility] [address] [place], [address] Calcium [Mass/Vol] 9.3 mg/dL Normal 7.6-11.0 [facility] Comment on above: Performed By: #### L 501.9985, L500.4100, L502.0250, L506.1001, L500.4050 #### [facility] [address] [place], [address] Chloride [Moles/Vol] 103 mmol/L Normal 98-108 [facility] Comment on above: Performed By: #### L 501.9985, L500.4100, L502.0250, L506.1001, L500.4050 #### [facility] [address] [place], [address] CO2 [Moles/Vol] 22.3 mmol/L Normal 21.0-32.0 [facility] Comment on above: Performed By: #### L 501.9985, L500.4100, L502.0250, L506.1001, L500.4050 #### [facility] [address] [place], [address] Creatinine [Mass/Vol] 0.82 mg/dL Normal 0.70-1.20 [facility] Comment on above: Performed By: #### L 501.9985, L500.4100, L502.0250, L506.1001, L500.4050 #### [facility] [address] [place], [address] GAP 12 Normal 5-15 [facility] Comment on above: Performed By: #### L 501.9985, L500.4100, L502.0250, L506.1001, L500.4050 #### [facility] [address] [place], [address] GFR/1.73 sq M.predicted among non-blacks MDRD (S/P/Bld) [Vol rate/Area] 76 mL/min/{1.73_m2} Normal >60 [facility] Comment on above: Result Comment: mL/m in/1.73m2 CKD-EPI Creatinine Equation (2020) Performed By: #### L 501.9985, L500.4100, L502.0250, L506.1001, L500.4050 #### [facility] [address] [place], [address] Globulin (S) [Mass/Vol] 3.0 g/dL Normal 2.2-4.2 [facility] Comment on above: Performed By: #### L 501.9985, L500.4100, L502.0250, L506.1001, L500.4050 #### [facility] [address] [place], [address] Glucose [Mass/Vol] 92 mg/dL Normal 70-99 [facility] Comment on above: Performed By: #### L 501.9985, L500.4100, L502.0250, L506.1001, L500.4050 #### [facility] [address] [place], [address] Potassium [Moles/Vol] 3.9 mmol/L Normal 3.3-5.1 [facility] Comment on above: Performed By: #### L 501.9985, L500.4100, L502.0250, L506.1001, L500.4050 #### [facility] [address] [place], [address] Sodium [Moles/Vol] 137 mmol/L Normal 133-145 [facility] Comment on above: Performed By: #### L 501.9985, L500.4100, L502.0250, L506.1001, L500.4050 #### [facility] [address] [place], [address] T PROT 7.2 g/dL Normal 5.9-8.4 [facility] Comment on above: Performed By: #### L 501.9985, L500.4100, L502.0250, L506.1001, L500.4050 #### [facility] [address] [place], [address] Urea nitrogen [Mass/Vol] 18 mg/dL Normal 4-19 [facility] Comment on above: Performed By: #### L 501.9985, L500.4100, L502.0250, L506.1001, L500.4050 #### [facility] [address] [place], [address] Creatinine Unsp time (U) [Ma ss/Vol]Ordered By: Herlinda Lopez on 08-03-2024 Creatinine (U) [Mass/Vol] 51.80 mg/dL 28.00-217.0 0 [facility] GFR/1.73 sq M.predicted elaine g non-blacks MDRD (S/P/Bld) [Vol rate/Area]Ordered By: Herlinda Lopez on 08-03-2024 Estimated GFR (MDRD) Non-Af Amer 76 >60 [facility] Comment on above: mL/min/1.73m2 CKD-EP I Creatinine Equation (2020) Hemoglobin A1con 08-03-2024 HbA1c (Bld) [Mass fraction] 6.2 % Normal <=5.6 [facility] Comment on above: Performed By: #### L 501.9985, L500.4100, L502.0250, L506.1001, L500.4050 #### [facility] [address] [place], [address] Hemoglobin A1c percentageOrd ered By: Herlinda Lopez on 08-03-2024 HbA1c (Bld) [Mass fraction] 6.2 % >5.7 [facility] L506.1001on 08-03-2024 Vitamin D 25-OH 71.1 ng/mL Normal 30-100 [facility] Comment on above: Result Comment: Rama min D Status Deficiency: <20 ng/mL (50nmol/L) Insufficiency: 20-30 ng/mL (50-75 nmol/L) Sufficiency: 30-100 ng/mL (75-250 nmol/L) Toxicity: >100 ng/mL (>250 nmol/L) Performed By: #### L 501.9985, L500.4100, L502.0250, L506.1001, L500.4050 #### [facility] [address] [place], [address] LDL calc ser/plasOrdered By: Herlinda Lopez on 08-03-2024 LDL Cholesterol, Calculated 113 mg/dL [facility] Comment on above: Lnwgjhixqg=061-806 m g/dL & Higher Nuqb=101 mg/dL or greater Laboratory - Chemistry and C hemistry - challengeOrdered By: Herlinda Lopez on 08-03-2024 AST [Catalytic activity/Vol] 19 U/L <32 [facility] Lipid Profileon 08-03-2024 CHOL:HDL 2.57 Normal [facility] Comment on above: Performed By: #### L 501.9985, L500.4100, L502.0250, L506.1001, L500.4050 #### [facility] [address] [place], [address] Cholesterol [Mass/Vol] 217 mg/dL High <=200 [facility] Comment on above: Result Comment: Chol esterol level, Desirable <200 mg/dL Borderline high cholesterol 200-239 mg/dL High cholesterol >=240 mg/dL Recommendations of the NCEP Adult Treatment Panel for the following risk-cutoff thresholds for the [place] population. Performed By: #### L 501.9985, L500.4100, L502.0250, L506.1001, L500.4050 #### [facility] [address] [place], [address] Cholesterol in HDL [Mass/Vol] 85 mg/dL Normal [facility] Comment on above: Result Comment: [place] onal Cholesterol Education Program (NCEP) guidelines: <40 mg/dL: Low HDL-cholesterol (major risk factor for CHD) >= 60 mg/dL: High HDL-cholesterol (negative risk factor for CHD) HDL-cholesterol is affected by a number of factors, e.g. smoking, exercise, hormones, sex and age. Performed By: #### L 501.9985, L500.4100, L502.0250, L506.1001, L500.4050 #### [facility] [address] [place], [address] Cholesterol in LDL [Mass/Vol] 113 mg/dL Normal [facility] Comment on above: Result Comment: Bord klhwco=499-159 mg/dL Higher Gfei=508 mg/dL or greater Performed By: #### L 501.9985, L500.4100, L502.0250, L506.1001, L500.4050 #### [facility] [address] [place], [address] Cholesterol in VLDL [Mass/Vol] 20 mg/dL Normal 5-40 [facility] Comment on above: Performed By: #### L 501.9985, L500.4100, L502.0250, L506.1001, L500.4050 #### [facility] [address] [place], [address] Triglyceride [Mass/Vol] 98 mg/dL Normal [facility] Comment on above: Result Comment: The drugs N-Acetylcysteine and Metamizole may falsely depress this assay. Normal range: <150 mg/dL Borderline High: 150-199 mg/dL High: 200-499 mg/dL Very High: >500 mg/dL Performed By: #### L 501.9985, L500.4100, L502.0250, L506.1001, L500.4050 #### [facility] [address] [place], [place], [address] Microalb:Creat Ratio,Random URon 08-03-2024 Creatinine [Mass/Vol] 51.80 mg/dL Normal 28.00- 217.0 0 [facility] Comment on above: Performed By: #### L 500.4100, L503.0106, L500.4050, L501.9985, L506.0200, L100.0100 #### [facility] [address] [place], [place], [address] Microalbumin/creat ratio urO rdered By: Herlinda Lopez on 08-03-2024 Urine Microalbumin/Creatinine Ratio WYP [facility] Comment on above: Test not performedPr evious [...] on 08-03-2024 Potassium [Moles/Vol] 3.9 mmol/L 3.3-5.1 [facility] Screening total cholesterol/ high density lipoprotein (HDL) cholesterol ratioOrdered By: Herlinda Lopez on 08-03-2024 Cholesterol.total/Catarina sterol in HDL [Mass ratio] 2.57 {ratio} [facility] Serum creatinine measurement (mass/volume)Ordered By: Herlinda Lopez on 08-03-2024 Creatinine [Mass/Vol] 0.82 mg/dL 0.70-1.20 [facility] Serum globulin measurementOr dered By: Herlinda Lopez on 08-03-2024 Globulin (S) [Mass/Vol] 3.0 g/dL 2.2-4.2 [facility] Serum glucose measurement (m ass/volume)Ordered By: Herlinda Lopez on 08-03-2024 Glucose [Mass/Vol] 92 mg/dL 70-99 [facility] Serum or plasma alanine martinez otransferase (ALT) measurementOrdered By: Herlinda Lopez on 08-03-2024 ALT [Catalytic activity/Vol] 14 U/L <35 [facility] Serum or plasma albumin delores urement (mass/volume)Ordered By: Herlinda Lopez on 08-03-2024 Albumin [Mass/Vol] 4.2 g/dL 3.4-4.8 [facility] Serum or plasma albumin/glob ulin mass ratioOrdered By: Herlinda Lopez on 08-03-2024 Albumin/Globulin [Mass ratio] 1.4 {ratio} 0.9-2.4 [facility] Serum or plasma alkaline aubrey sphatase measurementOrdered By: Herlinda Lopez on 08-03-2024 ALP [Catalytic activity/Vol] 73 U/L 35-104 [facility] Serum or plasma calcium delores urement (mass/volume)Ordered By: Herlinda Lopez on 08-03-2024 Calcium [Mass/Vol] 9.3 mg/dL 7.6-11.0 [facility] Serum or plasma cholesterol in HDL measurement (mass/volume)Ordered By: Herlinda Lopez on 08-03-2024 Cholesterol in HDL [Mass/Vol] 85 mg/dL >40 [facility] Comment on above: National Cholesterol Education Program (NCEP) guidelines:<40 mg/dL: Low HDL-cholesterol (major risk factor for CHD)>= 60 mg/dL: High HDL-cholesterol (negative risk factor for CHD)HDL-cholesterol is affected by a number of factors, e.g. smoking, exercise, hormones, sex and age. Serum or plasma cholesterol measurement (mass/volume)Ordered By: Herlinda Lopez on 08-03-2024 Cholesterol [Mass/Vol] 217 mg/dL High <201 [facility] Comment on above: Cholesterol level, D esirable <200 mg/dLBorderline high cholesterol 200-239 mg/dLHigh cholesterol >=240 mg/dLRecommendations of the NCEP Adult Treatment Panel for the following risk-cutoff thresholds for the [place] population. Serum or plasma urea nitroge n measurement (mass/volume)Ordered By: Herlinda Lopez on 08-03-2024 Urea nitrogen [Mass/Vol] 18 mg/dL 4- [facility] Sodium levelOrdered By: Nata Lopez on 08-03-2024 Sodium [Moles/Vol] 137 mmol/L 133-145 [facility] Total proteinOrdered By: Fuad Lopez on 08-03-2024 Protein [Mass/Vol] 7.2 g/dL 5.9-8.4 [facility] Triglycerides measurementOrd ered By: Herlinda Lopez on 08-03-2024 Triglyceride [Mass/Vol] 98 mg/dL <199 [facility] Comment on above: The drugs N-Acetylcy steine and Metamizole may falsely depress this assay. Normal range: <150 mg/dLBorderline High: 150-199 mg/dLHigh: 200-499 mg/dLVery High: >500 mg/dL Vitamin D, 25-hydroxyOrdered By: Herlinda Lopez on 08-03-2024 Vitamin D 25-Hydroxy 71.1 ng/mL 30-100 [facility] Comment on above: Vitamin D StatusDefi ciency: <20 ng/mL (50nmol/L)Insufficiency: 20-30 ng/mL (50-75 nmol/L)Sufficiency: 30-100 ng/mL (75-250 nmol/L)Toxicity: >100 ng/mL (>250 nmol/L) Absolute lymphocyte countOrd ered By: Tyler Donahue on 04-30-2023 Lymphocytes Auto (Unsp spec) [#/Vol] 2.90 10*3/uL 0.83-4.51 [facility] Basophil percentageOrdered B y: Tyler Donahue on 04-30-2023 Basophils/100 WBC (Bld) 0.7 % 0-1 [facility] Bilirubin [Mass/Vol] 0.60 mg/dL 0.20-1.00 [facility] Comment on above: For patients on eltr ombopag therapy, use of Dimension [place] TBIL is not recommended. Chloride [Moles/Vol] 109 mmol/L 98-107 [facility] Eosinophils/100 WBC (Bld) 2.3 % 0-5 [facility] Glucose [Mass/Vol] 90 mg/dL 74-106 [facility] Neutrophils (Bld) [#/Vol] 3.3 10*3/uL 2.0-7.7 [facility] Neutrophils/100 WBC (Bld) 47.7 % 47-70 [facility] Potassium [Moles/Vol] 4.2 mmol/L 3.5-5.1 [facility] Protein [Mass/Vol] 7.4 g/dL 6.4-8.2 [facility] Sodium [Moles/Vol] 138 mmol/L 136-145 [facility] WBC (Bld) [#/Vol] 6.9 10*3/uL 4.4-11.0 [facility] Blood erythrocytes count (nu mber/volume)Ordered By: Tyler Donahue on 04-30-2023 RBC (Bld) [#/Vol] 4.78 10*6/uL 4.2-5.4 [facility] Blood hemoglobin measurement (mass/volume)Ordered By: Tyler Donahue on 04-30-2023 Hemoglobin (Bld) [Mass/Vol] 13.5 g/dL 12.0-15.0 [facility] Blood lymphocytes/100 leukoc ytesOrdered By: Tyler Donahue on 04-30-2023 Lymphocytes/100 WBC (Bld) 42.3 % 19-41 [facility] Blood monocytes/100 leukocyt esOrdered By: Tyler Donahue on 04-30-2023 Monocytes/100 WBC (Bld) 6.7 % 0-10 [facility] Blood platelet mean volumeOr dered By: Tyler Donahue on 04-30-2023 Platelet mean volume (Bld) [Entitic vol] 10.5 fL 6.2-12.0 [facility] Determination of erythrocyte mean corpuscular volume (MCV)Ordered By: Tyler Donahue on 04-30-2023 MCV (RBC) [Entitic vol] 89.7 fL 81-99 [facility] Hematocrit Auto (Bld) [Volum e fraction]Ordered By: Tyler Donahue on 04-30-2023 Hematocrit (Bld) [Volume fraction] 42.9 % 37-47 [facility] - Chemistry and C hemistry - challengeOrdered By: Tyler Donahue on 04-30-2023 ALP [Catalytic activity/Vol] 75 U/L 45-117 [facility] ALT [Catalytic activity/Vol] 18 U/L 13-56 [facility] CO2 [Moles/Vol] 26.0 mmol/L 21.0-32.0 [facility] Globulin (S) [Mass/Vol] 3.7 g/dL 2.2-4.2 [facility] Urea nitrogen/Creatinine [Mass ratio] 21.6 mg/mg 10-20 [facility] - Hematology and Cell countsOrdered By: Tyler Donahue on 04-30-2023 Erythrocyte distribution width (RBC) [Entitic vol] 47.0 fL 35.1-43.9 [facility] Erythrocyte distribution width (RBC) [Ratio] 14.4 % 11.6-14.6 [facility] Immature granulocytes/100 WBC (Bld) 0.300 % 0.0-0.9 [facility] Comment on above: IG% - Immature Granu locytes (promyelocytes, myelocytes and metamyelocytes) > 1% indicates that a LEFT SHIFT is Present. MCH (RBC) [Entitic mass] 28.2 pg 27.0-32.0 [facility] Nucleated RBC/100 WBC (Bld) [Ratio] 0 % 0-5 [facility] MCHC Auto (RBC) [Mass/Vol]Or dered By: Tyler Donahue on 04-30-2023 MCHC (RBC) [Mass/Vol] 31.5 g/dL 32-36 [facility] No Panel InformationOrdered By: Tyler Donahue on 04-30-2023 Estimated GFR (MDRD) Amer 87 mL/min >60 [facility] Comment on above: GFR Calc Estimated GFR (MDRD) Non-Af Amer 72 mL/min >60 [facility] Comment on above: Non- GFR Calc Platelets bldOrdered By: Tc Donahue on 04-30-2023 Platelets (Bld) [#/Vol] 387 10*3/uL 150-450 [facility] Serum or plasma albumin delores urement (mass/volume)Ordered By: Tyler Donahue on 04-30-2023 Albumin [Mass/Vol] 3.7 g/dL 3.2-5.0 [facility] Serum or plasma albumin/glob ulin mass ratioOrdered By: Tyler Dnoahue on 04-30-2023 Albumin/Globulin [Mass ratio] 1.0 {ratio} 0.9-2.4 [facility] Serum or plasma calcium delores urement (mass/volume)Ordered By: Tyler Donahue on 04-30-2023 Calcium [Mass/Vol] 9.4 mg/dL 8.5-10.1 [facility] Serum or plasma creatinine m easurement (mass/volume)Ordered By: Tyler Donahue on 04-30-2023 Creatinine [Mass/Vol] 0.83 mg/dL 0.55-1.02 [facility] Comment on above: The validity of the calculated GFR & GFRAA in patients over 70 years has not been determined. Clinical correlation is essential. Serum or plasma urea nitroge n measurement (mass/volume)Ordered By: Tyler Donahue on 04-30-2023 Urea nitrogen [Mass/Vol] 18 mg/dL 7-18 [facility] Thin prep Papanicolaou smear with manual screeningOrdered By: Tyler Donahue on 04-30-2023 Thin prep Papanicolaou smear with manual screening 16 U/L 15-37 [facility] Thin prep Papanicolaou smear with manual screening 3 5-15 [facility] Blood Glucose , Office ([phone])Ordered By: Mary Hernandez on 01-13-2023 Glucose Glucometer (BldC) [Moles/Vol] 98 1 Normal [facility]; [facility] Work Phone: HgA1C , Office ([phone])Ordere d By: Mary Hernandez on 01-13-2023 HbA1c (Bld) [Mass fraction] 5.8 % Normal 4.6 - 7.1 [facility]; [facility] Work Phone: Basophil percentageOrdered B y: Herlinda Lopez on 01-09-2023 Cholesterol [Mass/Vol] 217 mg/dL <200 [facility] Comment on above: <200 mg/dL Desirable 200-240 mg/dL Borderline >240 mg/dL High Risk Triglyceride [Mass/Vol] 179 mg/dL <199 [facility] Comment on above: The drugs N-Acetylcy steine and Metamizole may falsely depress this assay.Serum Triglycerides Reference Interval Normal <150 mg/dL Borderline high 150 - 199 mg/dL High 200 - 499 mg/dL Very High > or = 500 mg/dL Serum or plasma cholesterol in HDL measurement (mass/volume)Ordered By: Herlinda Lopez on 01-09-2023 Cholesterol in HDL [Mass/Vol] 61 mg/dL >40 [facility] Comment on above: The drugs N-Acetylcy steine and Metamizole may falsely depress this assay. Reference Range HDL <40 mg/dL Low HDL Cholesterol HDL >or= 60 mg/dL High HDL Cholesterol Serum or plasma cholesterol in VLDL measurement (mass/volume)Ordered By: Herlinda Lopez on 01-09-2023 Cholesterol in VLDL [Mass/Vol] 36 mg/dL 5-40 [facility] Serum or plasma low density lipoprotein (LDL) cholesterol measurement (mass/volume)Ordered By: Herlinda Lopez on 01-09-2023 Cholesterol in LDL [Mass/Vol] 120 mg/dL 0-130 [facility] Laboratory - Microbiology an d Antimicrobial susceptibilityon 01-01-2023 SARS-CoV-2 (COVID-19) RNA CORTEZ+probe Ql (Unsp spec) Detected [facility] No Panel Informationon 01-01 POC Nasal Swab Influenza A,B Not detected [facility] POC Nasal Swab RSV Not detected [facility] Glucose Glucometer (BldC) [M ass/Vol]Ordered By: Dr. Melissa on 09-24-2022 Glucose [Mass/Vol] 110 mg/dL 74-106 [facility] Comment on above: MANAGEMENT OF PATIEN T CARE PER NURSING PROTOCOL No Panel InformationOrdered By: Dr. Melissa on 09-10-2022 Nasal Screen MRSA/MSSA [facility] Absolute lymphocyte countOrd ered By: Herlinda Lopez on 09-09-2022 Lymphocytes Auto (Unsp spec) [#/Vol] 3.58 10*3/uL 0.83-4.51 [facility] Basophil percentageOrdered B y: Herlinda Lopez on 09-09-2022 Basophils/100 WBC (Bld) 0.7 % 0-1 [facility] Bilirubin [Mass/Vol] 0.40 mg/dL 0.20-1.00 [facility] Comment on above: For patients on eltr ombopag therapy, use of Dimension [place] TBIL is not recommended. Chloride [Moles/Vol] 109 mmol/L 98-107 [facility] Eosinophils/100 WBC (Bld) 2.4 % 0-5 [facility] Glucose [Mass/Vol] 100 mg/dL 74-106 [facility] Comment on above: Fasting Glucose resu lt from 100 to 125 mg/dL suggests IMPAIRED HOMEOSTASIS per A.D.A. criteria. Neutrophils (Bld) [#/Vol] 4.2 10*3/uL 2.0-7.7 [facility] Neutrophils/100 WBC (Bld) 48.6 % 47-70 [facility] Potassium [Moles/Vol] 3.9 mmol/L 3.5-5.1 [facility] Protein [Mass/Vol] 7.6 g/dL 6.4-8.2 [facility] Sodium [Moles/Vol] 139 mmol/L 136-145 [facility] WBC (Bld) [#/Vol] 8.5 10*3/uL 4.4-11.0 [facility] Blood erythrocytes count (nu mber/volume)Ordered By: Herlinda Lopez on 09-09-2022 RBC (Bld) [#/Vol] 4.85 10*6/uL 4.2-5.4 [facility] Blood hemoglobin measurement (mass/volume)Ordered By: Herlinda Lopez on 09-09-2022 Hemoglobin (Bld) [Mass/Vol] 14.1 g/dL 12.0-15.0 [facility] Blood lymphocytes/100 leukoc ytesOrdered By: Herlinda Lopez on 09-09-2022 Lymphocytes/100 WBC (Bld) 42.1 % 19-41 [facility] Blood monocytes/100 leukocyt esOrdered By: Herlinda Lopez on 09-09-2022 Monocytes/100 WBC (Bld) 5.8 % 0-10 [facility] Blood platelet mean volumeOr dered By: Herlinda Lopez on 09-09-2022 Platelet mean volume (Bld) [Entitic vol] 11.4 fL 6.2-12.0 [facility] Determination of erythrocyte mean corpuscular volume (MCV)Ordered By: Herlinda Lopez on 09-09-2022 MCV (RBC) [Entitic vol] 91.3 fL 81-99 [facility] Hematocrit Auto (Bld) [Volum e fraction]Ordered By: Herlinda Lopez on 09-09-2022 Hematocrit (Bld) [Volume fraction] 44.3 % 37-47 [facility] - Chemistry and C hemistry - challengeOrdered By: Dr. Park on 09-09-2022 Magnesium [Mass/Vol] 2.1 mg/dL 1.6-2.6 [facility] Laboratory - Chemistry and C hemistry - challengeOrdered By: Herlinda Lopez on 09-09-2022 ALP [Catalytic activity/Vol] 80 U/L 45-117 [facility] ALT [Catalytic activity/Vol] 24 U/L 13-56 [facility] CO2 [Moles/Vol] 26.0 mmol/L 21.0-32.0 [facility] Globulin (S) [Mass/Vol] 3.8 g/dL 2.2-4.2 [facility] Urea nitrogen/Creatinine [Mass ratio] 16.6 mg/mg 10-20 [facility] - Hematology and Cell countsOrdered By: Herlinda Lopez on 09-09-2022 Erythrocyte distribution width (RBC) [Entitic vol] 47.0 fL 35.1-43.9 [facility] Erythrocyte distribution width (RBC) [Ratio] 13.9 % 11.6-14.6 [facility] Immature granulocytes/100 WBC (Bld) 0.400 % 0.0-0.9 [facility] Comment on above: IG% - Immature Granu locytes (promyelocytes, myelocytes and metamyelocytes) > 1% indicates that a LEFT SHIFT is Present. MCH (RBC) [Entitic mass] 29.1 pg 27.0-32.0 [facility] Nucleated RBC/100 WBC (Bld) [Ratio] 0 % 0-5 [facility] MCHC Auto (RBC) [Mass/Vol]Or dered By: Herlinda Lopez on 09-09-2022 MCHC (RBC) [Mass/Vol] 31.8 g/dL 32-36 [facility] No Panel InformationOrdered By: Quinn Melissa on 09-09-2022 Nasal Screen MRSA/MSSA [facility] No Panel InformationOrdered By: Herlinda Lopez on 09-09-2022 Estimated GFR (MDRD) Amer 86 mL/min >60 [facility] Comment on above: GFR Calc Estimated GFR (MDRD) Non-Af Amer 71 mL/min >60 [facility] Comment on above: Non- GFR Calc Platelets bldOrdered By: Fuad Lopez on 09-09-2022 Platelets (Bld) [#/Vol] 377 10*3/uL 150-450 [facility] Serum or plasma albumin delores urement (mass/volume)Ordered By: Herlinad Lopez on 09-09-2022 Albumin [Mass/Vol] 3.8 g/dL 3.2-5.0 [facility] Serum or plasma albumin/glob ulin mass ratioOrdered By: Herlinda Lopez on 09-09-2022 Albumin/Globulin [Mass ratio] 1.0 {ratio} 0.9-2.4 [facility] Serum or plasma calcium delores urement (mass/volume)Ordered By: Herlinda Lopez on 09-09-2022 Calcium [Mass/Vol] 9.3 mg/dL 8.5-10.1 [facility] Serum or plasma creatinine m easurement (mass/volume)Ordered By: Herlinda Lopez on 09-09-2022 Creatinine [Mass/Vol] 0.84 mg/dL 0.55-1.02 [facility] Comment on above: The validity of the calculated GFR & GFRAA in patients over 70 years has not been determined. Clinical correlation is essential. Serum or plasma urea nitroge n measurement (mass/volume)Ordered By: Herlinda Lopez on 09-09-2022 Urea nitrogen [Mass/Vol] 14 mg/dL 7-18 [facility] Thin prep Papanicolaou smear with manual screeningOrdered By: Herlinda Lopez on 09-09-2022 Thin prep Papanicolaou smear with manual screening 18 U/L 15-37 [facility] Thin prep Papanicolaou smear with manual screening 4 5-15 [facility] Urinalysis, Office ([phone])Or dered By: Zaida Herbert on 09-03-2022 Bilirubin [...] on 08-27-2022 Cholesterol [Mass/Vol] 223 mg/dL <200 [facility] Comment on above: <200 mg/dL Desirable 200-240 mg/dL Borderline >240 mg/dL High Risk Triglyceride [Mass/Vol] 78 mg/dL <199 [facility] Comment on above: The drugs N-Acetylcy steine and Metamizole may falsely depress this assay.Serum Triglycerides Reference Interval Normal <150 mg/dL Borderline high 150 - 199 mg/dL High 200 - 499 mg/dL Very High > or = 500 mg/dL Erythrocyte sedimentation ra teOrdered By: Herlinda Lopez on 08-27-2022 ESR (Bld) [Velocity] 7 mm/h 0-30 [facility] No Panel InformationOrdered By: Herlinda Lopez on 08-27-2022 C-Reactive Protein High Sensitivity 2.23 mg/L <3.00 [facility] Comment on above: Low Relative Risk of CVD <1.0 mg/L Average Relative Risk of CVD 1.0 - 3.0 mg/L High Relative Risk of CVD >3.0 mg/L Serum or plasma cholesterol in HDL measurement (mass/volume)Ordered By: Herlinda Lopez on 08-27-2022 Cholesterol in HDL [Mass/Vol] 85 mg/dL >40 [facility] Comment on above: The drugs N-Acetylcy steine and Metamizole may falsely depress this assay. Reference Range HDL <40 mg/dL Low HDL Cholesterol HDL >or= 60 mg/dL High HDL Cholesterol Serum or plasma cholesterol in VLDL measurement (mass/volume)Ordered By: Herlinda Lopez on 08-27-2022 Cholesterol in VLDL [Mass/Vol] 16 mg/dL 5-40 [facility] Serum or plasma low density lipoprotein (LDL) cholesterol measurement (mass/volume)Ordered By: Herlinda Lopez on 08-27-2022 Cholesterol in LDL [Mass/Vol] 122 mg/dL 0-130 [facility] Whole blood hemoglobin A1c/t otal hemoglobin ratio (mass fraction)Ordered By: Herlinda Lopez on 08-27-2022 HbA1c (Bld) [Mass fraction] 5.9 % 3.8-5.6 [facility] Comment on above: Normal < 5.7 % Predi abetic 5.7 - 6.4 % Diabetic >or= 6.5 % Please note range changes. Basophil percentageOrdered B y: Herlinda Lopez on 06-10-2022 Basophil percentage 139 mg/dL 0-149 [facility] Bilirubin [Mass/Vol] 0.60 mg/dL 0.20-1.00 [facility] Comment on above: For patients on eltr ombopag therapy, use of Dimension [place] TBIL is not recommended. Chloride [Moles/Vol] 106 mmol/L 98-107 [facility] Cholesterol [Mass/Vol] 343 mg/dL <200 [facility] Comment on above: <200 mg/dL Desirable 200-240 mg/dL Borderline >240 mg/dL High Risk Glucose [Mass/Vol] 100 mg/dL 74-106 [facility] Comment on above: Fasting Glucose resu lt from 100 to 125 mg/dL suggests IMPAIRED HOMEOSTASIS per A.D.A. criteria. Potassium [Moles/Vol] 3.9 mmol/L 3.5-5.1 [facility] Protein [Mass/Vol] 7.7 g/dL 6.4-8.2 [facility] Sodium [Moles/Vol] 139 mmol/L 136-145 [facility] Triglyceride [Mass/Vol] 152 mg/dL <199 [facility] Comment on above: The drugs N-Acetylcy steine and Metamizole may falsely depress this assay.Serum Triglycerides Reference Interval Normal <150 mg/dL Borderline high 150 - 199 mg/dL High 200 - 499 mg/dL Very High > or = 500 mg/dL Laboratory - Chemistry and C hemistry - challengeOrdered By: Herlinda Lopez on 06-10-2022 ALP [Catalytic activity/Vol] 77 U/L 45-117 [facility] ALT [Catalytic activity/Vol] 23 U/L 13-56 [facility] CO2 [Moles/Vol] 27.0 mmol/L 21.0-32.0 [facility] Cobalamin (Vitamin B12) [Mass/Vol] 541 pg/mL 211-911 [facility] Globulin (S) [Mass/Vol] 3.8 g/dL 2.2-4.2 [facility] Urea nitrogen/Creatinine [Mass ratio] 19.2 mg/mg 10-20 [facility] No Panel InformationOrdered By: Herlinda Lopez on 06-10-2022 Estimated GFR (MDRD) Amer 71 mL/min >60 [facility] Comment on above: GFR Calc Estimated GFR (MDRD) Non-Af Amer 59 mL/min >60 [facility] Comment on above: Non- GFR Calc Insulin Resistance/Diabetes Risk <25 <=45 [facility] Comment on above: INSULIN RESISTANCE Adam BETANCOURT <--Insulin Sensitive Insulin Resistant--> Percentile in Reference PopulationInsulin Resistance ScoreLP-IR Score Low 25th 50th 75th High <27 27 45 63 >63LP-IR Score is inaccurate if patient is non-fasting.The LP-IR score is a laboratory developed index that hasbeen associated with insulin resistance and diabetes riskand should be used as one component of a physician'sclinical assessment.Performed at: [email or web address] [address] [id number] Director: Jos Mckeon MD, Phone: [phone] LDL Cholesterol Particle Number [id number] nmol/L <1000 [facility] Comment on above: Low < 1000 Moderate 1000 - 1299 Borderline-High 1300 - 1599 High 1600 - 2000 Very High > 2000 LDL Cholesterol Particle Size 21.8 nm >20.5 [facility] Comment on above: INTERPRETATIVE INFORMATION PARTICLE CONCENTRATION [...] account. LDL Cholesterol, Calculated 237 mg/dL 0-99 [facility] Comment on above: Optimal < 100 Above optimal 100 - 129 Borderline 130 - 159 High 160 - 189 Very high > 189 Small LDL Particle Number [id number] nmol/L <=527 [facility] Vitamin D 25-Hydroxy 31.1 ng/mL [facility] Comment on above: Vitamin D 25(OH) Sta tus Range Deficiency <20 ng/mL (50nmol/L) Insufficiency 20 - 30 ng/mL (50 - 75 nmol/L) Sufficiency 30 - 100 ng/mL (75 - 250 nmol/L) Toxicity >100 ng/mL (>250 nmol/L) Serum or plasma albumin delores urement (mass/volume)Ordered By: Herlinda Lopez on 06-10-2022 Albumin [Mass/Vol] 3.9 g/dL 3.2-5.0 [facility] Serum or plasma albumin/glob ulin mass ratioOrdered By: Herlinda Lopez on 06-10-2022 Albumin/Globulin [Mass ratio] 1.0 {ratio} 0.9-2.4 [facility] Serum or plasma calcium delores urement (mass/volume)Ordered By: Herlinda Lopez on 06-10-2022 Calcium [Mass/Vol] 9.3 mg/dL 8.5-10.1 [facility] Serum or plasma cholesterol in HDL measurement (mass/volume)Ordered By: Herlinda Lopez on 06-10-2022 Cholesterol in HDL [Mass/Vol] 77 mg/dL >39 [facility] Serum or plasma cholesterol in VLDL measurement (mass/volume)Ordered By: Herlinda Lopez on 06-10-2022 Cholesterol in VLDL [Mass/Vol] 30 mg/dL 5-40 [facility] Serum or plasma cholesterol measurement (mass/volume)Ordered By: Herlinda Lopez on 06-10-2022 Cholesterol [Mass/Vol] 339 mg/dL 100-199 [facility] Serum or plasma creatinine m easurement (mass/volume)Ordered By: Herlinda Lopez on 06-10-2022 Creatinine [Mass/Vol] 0.99 mg/dL 0.55-1.02 [facility] Comment on above: The validity of the calculated GFR & GFRAA in patients over 70 years has not been determined. Clinical correlation is essential. Serum or plasma folate measu rement (mass/volume)Ordered By: Herlinda Lopez on 06-10-2022 Folate [Mass/Vol] 15.10 ng/mL 3.1-55.4 [facility] Serum or plasma low density lipoprotein (LDL) cholesterol measurement (mass/volume)Ordered By: Herlinda Lopez on 06-10-2022 Cholesterol in LDL [Mass/Vol] 238 mg/dL 0-130 [facility] Serum or plasma urea nitroge n measurement (mass/volume)Ordered By: Herlinda Lopez on 06-10-2022 Urea nitrogen [Mass/Vol] 19 mg/dL 7-18 [facility] Thin prep Papanicolaou smear with manual screeningOrdered By: Herlinda Lopez on 06-10-2022 Thin prep Papanicolaou smear with manual screening 15 U/L 15-37 [facility] Thin prep Papanicolaou smear with manual screening 6 5-15 [facility] Thin prep Papanicolaou smear with manual screening 38.7 umol/L >=30.5 [facility] Basophil percentageOrdered B y: Dr. Donahue on 05-14-2022 Chloride [Moles/Vol] 108 mmol/L 98-107 [facility] Glucose [Mass/Vol] 101 mg/dL 74-106 [facility] Comment on above: Fasting Glucose resu lt from 100 to 125 mg/dL suggests IMPAIRED HOMEOSTASIS per A.D.A. criteria. Potassium [Moles/Vol] 4.0 mmol/L 3.5-5.1 [facility] Comment on above: Slight Hemolysis, Re sult may be falsely increased. Sodium [Moles/Vol] 143 mmol/L 136-145 [facility] WBC (Bld) [#/Vol] 8.8 10*3/uL 4.4-11.0 [facility] Blood erythrocytes count (nu mber/volume)Ordered By: Dr. Donahue on 05-14-2022 RBC (Bld) [#/Vol] 4.78 10*6/uL 4.2-5.4 [facility] Blood hemoglobin measurement (mass/volume)Ordered By: Dr. Donahue on 05-14-2022 Hemoglobin (Bld) [Mass/Vol] 14.0 g/dL 12.0-15.0 [facility] Blood platelet mean volumeOr dered By: Dr. Donahue on 05-14-2022 Platelet mean volume (Bld) [Entitic vol] 11.4 fL 6.2-12.0 [facility] Determination of erythrocyte mean corpuscular volume (MCV)Ordered By: Dr. Donahue on 05-14-2022 MCV (RBC) [Entitic vol] 91.0 fL 81-99 [facility] Hematocrit Auto (Bld) [Volum e fraction]Ordered By: Dr. Donahue on 05-14-2022 Hematocrit (Bld) [Volume fraction] 43.5 % 37-47 [facility] Laboratory - Chemistry and C hemistry - challengeOrdered By: Dr. Donahue on 05-14-2022 CO2 [Moles/Vol] 27.0 mmol/L 21.0-32.0 [facility] Urea nitrogen/Creatinine [Mass ratio] 16.7 mg/mg 10-20 [facility] - Hematology and Cell countsOrdered By: Dr. Donahue on 05-14-2022 Erythrocyte distribution width (RBC) [Entitic vol] 48.0 fL 35.1-43.9 [facility] Erythrocyte distribution width (RBC) [Ratio] 14.4 % 11.6-14.6 [facility] MCH (RBC) [Entitic mass] 29.3 pg 27.0-32.0 [facility] MCHC Auto (RBC) [Mass/Vol]Or dered By: Dr. Donahue on 05-14-2022 MCHC (RBC) [Mass/Vol] 32.2 g/dL 32-36 [facility] No Panel InformationOrdered By: Dr. Donahue on 05-14-2022 Estimated GFR (MDRD) Amer 74 mL/min >60 [facility] Comment on above: GFR Calc Estimated GFR (MDRD) Non-Af Amer 61 mL/min >60 [facility] Comment on above: Non- GFR Calc Platelets bldOrdered By: Dr. Donahue on 05-14-2022 Platelets (Bld) [#/Vol] 381 10*3/uL 150-450 [facility] Serum or plasma calcium delores urement (mass/volume)Ordered By: Dr. Donahue on 05-14-2022 Calcium [Mass/Vol] 9.2 mg/dL 8.5-10.1 [facility] Serum or plasma creatinine m easurement (mass/volume)Ordered By: Dr. Donahue on 05-14-2022 Creatinine [Mass/Vol] 0.96 mg/dL 0.55-1.02 [facility] Comment on above: The validity of the calculated GFR & GFRAA in patients over 70 years has not been determined. Clinical correlation is essential. Serum or plasma urea nitroge n measurement (mass/volume)Ordered By: Dr. Donahue on 05-14-2022 Urea nitrogen [Mass/Vol] 16 mg/dL 7-18 [facility] Thin prep Papanicolaou smear with manual screeningOrdered By: Dr. Donahue on 05-14-2022 Thin prep Papanicolaou smear with manual screening 8 5-15 [facility] HEPATITIS C ANTIBODY ([id number]) Ordered By: Import Coordinator on 07-25-2020 HCV Ab Signal/Cutoff IA [Rel units/Vol] {ratio} Normal 0.0-0.9 [facility]; [facility] Work Phone: Comment on above: Negative: < 0.8 Inde terminate: 0.8 - 0.9 Positive: > 0.9 . The CDC recommends that a positive HCV antibody result be followed up with a HCV Nucleic Acid Amplification test (521391). PATIENT NOT FASTINGP ERFORMED BY: [email or web address] [facility] [id number] HCV Ab Signal/Cutoff IA [Rel units/Vol] {ratio} Normal 0.0-0.9 [facility]; [facility] Work Phone: Comment on above: Negative: < 0.8 Inde terminate: 0.8 - 0.9 Positive: > 0.9 . The CDC recommends that a positive HCV antibody result be followed up with a HCV Nucleic Acid Amplification test (240158). PATIENT NOT FASTINGP ERFORMED BY: Purdy [email or web address] [facility] [id number] Final Surgical Pathology Rep quique 07-26-2019 Final Surgical Pathology Report . Pathology Reports Accession: Collected Date/Time: Received Date/Time: Pathologist: [id number] 07/25/2019 10:01 EDT 07/25/2019 14:25 EDT PATIENCE NOYOLA MD Final Surgical Pathology Report DIAGNOSIS: A) SIGMOID COLON, BIOPSY @ 30 CM - POLYPOID COLONIC MUCOSAL FRAGMENT. B) COLON, POLYP @ 25 CM - INFLAMMATORY POLYP. COMMENT: [facility] [id number] CLINICAL INFORMATION: Procedure: COLONOSCOPY WITH BIOPSIES Preoperative [...] Electronically Signed by Pathology Report verified by [facility] Electronically signed by PATIENCE NOYOLA Sign out Date: 07/26/2019 15:00 Performing Lab: [facility], [address] [place] [address] ([place]) Comment on above: Performed By: #### S PFR #### [place] [id number] Nicotine Urine Drug Screenon 02-05-2018 COT DRG SCREEN Negative Normal [facility] [[email or web address]] Internal Medicine Work Phone: Comment on above: Cotinine is the firs t-stage metabolite of Nicotine. TO BE CONFIRMED Normal [facility] Internal Medicine Work Phone: Comment [...] result, particularly whenpreliminary positive results are used. [facility] [id number] [place], [place], [id number] Nicotine Urine Drug Screen Negative Normal [facility] Work Phone: Comment on above: Cotinine is the firs t-stage metabolite of Nicotine. [facility] [id number] [place], [address] Urinalysis, Completeon 02-05 Protein mass conc (U) Negative Normal [facility] Work Phone: Comment on above: How was Urine Obtain ed? [facility] [id number] [place], [place], [id number] RBC #/vol (U) 0 SEEN Normal 0-5 [facility]pre[facility] ve [facility] Work Phone: Comment on above: How was Urine Obtain ed? [facility] [id number] [place], [place], [id number] RBC Test strip #/vol (U) 0 SEEN Normal 0-5 [facility] Work Phone: Urinalysis complete panel - Urine 0 SEEN Normal 0-5 [facility] Work Phone: Comment on above: How was Urine Obtain ed? [facility] [address] [place], [place], [id number] Urinalysis complete panel - Urine Negative Normal [facility] Work Phone: Comment on above: How was Urine Obtain ed? [facility] [address] [place], [place], [id number] Urinalysis complete panel - Urine Sl. Cloudy Normal [facility] Work Phone: Comment on above: How was Urine Obtain ed? [facility] [address] [place], [place], [id number] Urinalysis complete panel - Urine Yellow Normal [facility] Work Phone: Comment on above: How was Urine Obtain ed? [facility] [address] [place], [id number] Urinalysis complete panel - Urine Normal Normal [facility] Work Phone: Comment on above: How was Urine Obtain ed? [facility] [address] [place], [id number] Urinalysis complete panel - Urine 5.0 1 Normal 5.0 - 8.0 [facility] Work Phone: Comment on above: How was Urine Obtain ed? [facility] [address] [place], [id number] Urinalysis complete panel - Urine 1.015 1 Normal 1.002-1.030 [facility] Work Phone: Comment on above: How was Urine Obtain ed? [facility] [address] [place], [place], [id number] Urinalysis complete panel - Urine 0-5 SEEN Normal 5-10 [facility] Work Phone: Comment on above: How was Urine Obtain ed? [facility] [address] [place], [place], [phone] Glucoseon 01-28-2018 Glucose mass conc 95 mg/dL Normal 74-106 Compre[facility] Work Phone: Comment on above: Please note revised GLUCOSE reference range vanjkgzxs96/02/2018. [facility] [address] [place], [id number] Hemoglobin A1con 01-28-2018 Hemoglobin A1c/Hemoglobin.total mass fraction (Bld) 5.9 % Normal 4.2-6.3 Comprehensiv e Internal Medicine Work Phone: Comment on above: [facility] [address] [place], [id number] Lipid Profileon 01-28-2018 Cholesterol in HDL mass conc 66 mg/dL Normal [facility] Work Phone: Comment on above: The drugs N-Acetylcy steine and Metamizole may falselydepress this assay. Reference Range HDL <40 mg/dL Low HDL Cholesterol HDL >or= 60 mg/dL High HDL Cholesterol [facility] [address] [place], [place], [id number] Cholesterol in LDL mass conc 124 mg/dL Normal 0-130 [facility] Work Phone: Cholesterol in LDL mass conc 124 mg/dL Normal 0-130 [facility] Work Phone: Comment on above: [facility] [address] [place], [place], [phone] Cholesterol in VLDL mass conc 25 mg/dL Normal 5-40 [facility] Work Phone: Comment on above: [facility] [address] [place], [place], [address] Cholesterol mass conc 215 mg/dL Abnormal Com prehensive Internal Medicine Work Phone: Comment on above: <200 mg/dL Desirable 200-240 mg/dL Borderline >240 mg/dL High Risk [facility] [address] [place], [place], [phone] Triglyceride mass conc 124 mg/dL Normal Co mprehensive [facility] Medicine Work Phone: Comment on above: The drugs N-Acetylcy steine and Metamizole may falselydepress this assay.Serum Triglycerides Reference Interval Normal <150 mg/dL Borderline high 150 - 199 mg/dL High 200 - 499 mg/dL Very High > or = 500 mg/dL [facility] [address] [place], [place], [id number] Lipid Profile 25 mg/dL Normal 5-40 Comprehensi Internal Medicine Work Phone: Comment on above: [facility] [address] [place], [place], [address] Microalbon 01-28-2018 Creatinine mass conc Test not performed Normal [facility] Work Phone: Comment on above: [facility] [address] [place], [phone] Creatinine mass conc 30.70 mg/dL Normal Com prehensive Internal Medicine Work Phone: Comment on above: [facility] [address] [place], [place], [phone] MICROALBUMIN,UR < 5.0 Normal Comprehen sive Internal Medicine Work Phone: UR CREAT 30.70 mg/dL Normal [facility] Work Phone: Microalb < 5.0 Normal [facility] Work Phone: Comment on above: [facility] [address] [place], [place], [phone] Urinalysis, Completeon 01-28 Protein mass conc (U) Negative Normal Com prehensive Internal Medicine Work Phone: Comment on above: How was Urine Obtain ed? [facility] [address] [place], [address] RBC #/vol (U) 0 SEEN Normal 0-5 Comprehensi ve Internal Medicine Work Phone: Comment on above: How was Urine Obtain ed? [facility] [address] [place], [address] RBC Test strip #/vol (U) 0 SEEN Normal 0-5 [facility] Work Phone: Urinalysis complete panel - Urine Normal Normal [facility] Work Phone: Comment on above: How was Urine Obtain ed? [facility] [address] [place], [phone] Urinalysis complete panel - Urine 0-5 SEEN Normal 5-10 [facility] Work Phone: Comment on above: How was Urine Obtain ed? [facility] [address] [place], [address] Urinalysis complete panel - Urine 0 SEEN Normal 0-5 [facility] Work Phone: Comment on above: How was Urine Obtain ed? [facility] [address] [place], [address] Urinalysis complete panel - Urine Negative Normal [facility] Work Phone: Comment on above: How was Urine Obtain ed? [facility] [address] [place], [address] Urinalysis complete panel - Urine Clear Normal [facility] Work Phone: Comment on above: How was Urine Obtain ed? [facility] [address] [place], [address] Urinalysis complete panel - Urine Yellow Normal [facility] Work Phone: Comment on above: How was Urine Obtain ed? [facility] [address] [place], [phone] Urinalysis complete panel - Urine 1.010 1 Normal 1.002-1.030 [facility] Work Phone: Comment on above: How was Urine Obtain ed? [facility] [address] [place], [id number] Urinalysis complete panel - Urine 6.0 1 Normal 5.0 - 8.0 [facility] Work Phone: Comment on above: How was Urine Obtain ed? [facility] [address] [place], [id number] Vitamin D,25 Hydroxyon 01-28 Vitamin D 25-OH [...] 250 nmol/L) Toxicity >100 ng/mL (>250 nmol/L) [facility] [address] [place], [address] Lesion (choose site)on 09-24 Lesion (choose site) See Note Normal Comp rehensive Internal Medicine Work Phone: Comment on above: Patient: NERISSA RG : 1950 (67/F) Acct Num: [id number] Phys: Cornel TORRES,Venecia Unit Num: [id number] Loc: LABSPEC Specimen: [id number] Received: 09/24/171824 Spec Type: Lesion TISSUES TISSUES: Skin of nose, NOS GROSS DESCRIPTION Received in fixative is one container labeled with the patient's name and designated lesion, left nasal dorsum. The specimen consists of a light galeas shaved skin measuring 0.6 x 0.4 x 0.1 cm. The specimen is totally submitted in one cassette for postfixation sectioning. / AM:camila 09/25/17 TC:1 CPT: 61305 HEADER OPERATION: Intradermal excision lesion left nasal dorsum PRE-OP DIAGNOSIS: Enlarging lesion left nasal dorsum TISSUE SUBMITTED: Left nasal dorsum MICROSCOPIC DESCRIPTION Slides are reviewed. MICROSCOPIC DIAGNOSIS Left nasal dorsum lesion, shave biopsy: Intradermal nevus. SJ:camila 09/28/17 Signed Fox Swartzin 09/28/17 [facility] [address] [place], [place], [phone] Glucoseon 02-03-2017 Glucose mass conc 88 mg/dL Normal 70-110 Compreh ensive Internal Medicine Work Phone: Comment on above: [facility] [address] [place], [place], [phone] Hemoglobin A1con 02-03-2017 Hemoglobin A1c/Hemoglobin.total mass fraction (Bld) 5.8 % Normal 4.2-6.3 Comprehensiv e Internal Medicine Work Phone: Comment on above: [facility] [address] [place], [place], [address] Lipid Profileon 02-03-2017 Cholesterol in HDL mass conc 69 mg/dL Normal [facility] Work Phone: Comment on above: The drugs N-Acetylcy steine and Metamizole may falselydepress this assay. Reference Range HDL <40 mg/dL Low HDL Cholesterol HDL >or= 60 mg/dL High HDL Cholesterol [facility] [address] [place], [place], [address] Cholesterol in LDL mass conc 107 mg/dL Normal 0-130 [facility] Work Phone: Cholesterol in LDL mass conc 107 mg/dL Normal 0-130 [facility] Work Phone: Comment on above: [facility] [address] [place], [place], [address] Cholesterol in VLDL mass conc 20 mg/dL Normal 5-40 [facility] Work Phone: Comment on above: [facility] [address] [place], [place], [address] Cholesterol mass conc 196 mg/dL Normal Com prehensive Internal Medicine Work Phone: Comment on above: <200 mg/dL Desirable 200-240 mg/dL Borderline >240 mg/dL High Risk [facility] [address] [place], [address] Triglyceride mass conc 102 mg/dL Normal Co mprehensive [facility] Work Phone: Comment on above: The drugs N-Acetylcy steine and Metamizole may falselydepress this assay.Serum Triglycerides Reference Interval Normal <150 mg/dL Borderline high 150 - 199 mg/dL High 200 - 499 mg/dL Very High > or = 500 mg/dL [facility] [address] [place], [address] Lipid Profile 20 mg/dL Normal 5-40 Comprehensi ve Internal Medicine Work Phone: Comment on above: [facility] [address] [place], [place], [address] Microalbon 02-03-2017 Creatinine mass conc Test not performed Normal [facility] Work Phone: Comment on above: [facility] [address] [place], [place], [address] Creatinine mass conc 18.00 mg/dL Normal Com prehensive Internal Medicine Work Phone: Comment on above: [facility] [address] [place], [place], [address] MICROALBUMIN,UR < 5.0 Normal Comprehen sive Internal Medicine Work Phone: UR CREAT 18.00 mg/dL Normal [facility] Work Phone: Microalb < 5.0 Normal [facility] Work Phone: Comment on above: [facility] [address] [place], [place], [address] Urinalysis, Routine (Dipstic k)on 02-03-2017 CLARITY Clear Normal [facility] Work Phone: Clarity Nom (U) Clear Normal Comprehen sive Internal Medicine Work Phone: Comment on above: How was Urine Obtain ed? [facility] [address] [place], [address] ; OV 10/2 COLOR Straw Normal [facility] Work Phone: Color Nom (U) Straw Normal Comprehensi ve Internal Medicine Work Phone: Comment on above: How was Urine Obtain ed? [facility] [address] [place], [place], [address] ; OV 10/2 KETONE UR Negative Normal [facility] Work Phone: pH UR 6.5 1 Normal 5.0 - 8.0 [facility] Work Phone: SP.GR. DIPSTX 1.010 1 Normal 1.002-1.030 Comprehens adela Internal Medicine Work Phone: UROBILI Normal Normal [facility] Work Phone: Urinalysis, Routine (Dipstick) Negative Normal [facility] Work Phone: Comment on above: How was Urine Obtain ed? [facility] [address] [place], [place], [address] ; OV 10/2 Urinalysis, Routine (Dipstick) 6.5 1 Normal 5.0 - 8.0 [facility] Work Phone: Comment on above: How was Urine Obtain ed? [facility] [address] [place], [place], [address] ; OV 10/2 Urinalysis, Routine (Dipstick) 1.010 1 Normal 1.002-1.030 [facility] Work Phone: Comment on above: How was Urine Obtain ed? [facility] [address] [place], [phone] ; OV 10/2 Urinalysis, Routine (Dipstick) Normal Normal [facility] Work Phone: Comment on above: How was Urine Obtain ed? [facility] [address] [place], [address] ; OV 02/16 Vitamin D,25 Hydroxyon 02-03 Vitamin D 25-OH 62.9 ng/mL Normal [facility]hen [facility] Work Phone: Comment on above: [...] 250 nmol/L) Toxicity >100 ng/mL (>250 nmol/L) [facility] [address] [place], [address] CBC, Employeeon 01-22-2017 Absolute Lymph 3.56 {X10_3/ul} Normal 0.83-4.51 Compr ehensive Internal Medicine Work Phone: Absolute Neut 4.5 {X10_3/uL} Normal 2.0-7.7 Compreh ensive Internal Medicine Work Phone: Basophils/100 WBC (Bld) 0.4 % Normal 0-1 C omprehensive Internal Medicine Work Phone: Comment on above: [facility] [address] [place], [address] Basophils/100 WBC Auto (Bld) 0.4 % Normal 0-1 [facility] Work Phone: Eosinophils/100 WBC (Bld) 2.9 % Normal 0-5 [facility] Work Phone: Comment on above: [facility] [address] [place], [address] Eosinophils/100 WBC Auto (Bld) 2.9 % Normal 0-5 [facility] Work Phone: Erythrocyte distribution width Auto Ratio (RBC) 14.4 % Normal 11.6-14.6 [facility] Work Phone: Erythrocyte distribution width Ratio (RBC) 14.4 % Normal 11.6-14.6 [facility] Work Phone: Comment on above: [facility] [address] [place], [address] Hematocrit Auto Volume Fraction (Bld) 43.8 % Normal 37-47 [facility] Work Phone: Hematocrit Volume Fraction (Bld) 43.8 % Normal 37-47 [facility] Work Phone: Comment on above: [facility] [address] [place], [address] Hemoglobin mass conc (Bld) 13.8 g/dL Normal 12.0-15.0 [facility] Work Phone: Comment on above: [facility] [address] [place], [address] Lymphocytes/100 WBC (Bld) 39.5 % Normal 19-41 [facility] Work Phone: Comment on above: [facility] [address] [place], [address] Lymphocytes/100 WBC Auto (Bld) 39.5 % Normal 19-41 [facility] Work Phone: MCH Auto Entitic mass (RBC) 28.5 pg Normal 27.0-32.0 [facility] Work Phone: MCH Entitic mass (RBC) 28.5 pg Normal 27.0-32.0 [facility] Internal Medicine Work Phone: Comment on above: [facility] [address] [place], [address] MCHC Auto mass conc (RBC) 31.5 {g/gl} Abnormal 32-36 [facility] Work Phone: MCHC mass conc (RBC) 31.5 {g/gl} Abnormal 32-36 Com prehensive Internal Medicine Work Phone: Comment on above: [facility] [address] [place], [place], [phone] MCV Auto Entitic volume (RBC) 90.5 fL Normal 81-99 [facility] Work Phone: MCV Entitic volume (RBC) 90.5 fL Normal 81-99 [facility] Work Phone: Comment on above: [facility] [address] [place], [address] Monocytes/100 WBC Auto (Bld) 7.3 % Normal 0-10 [facility] Work Phone: Comment on above: [facility] [address] [place], [address] Neutrophils/100 WBC (Bld) 49.7 % Normal 47-70 [facility] Work Phone: Comment on above: [facility] [address] [place], [address] Neutrophils/100 WBC Auto (Bld) 49.7 % Normal 47-70 [facility] Work Phone: Platelet mean volume Auto Entitic volume (Bld) 11.5 fL Normal 6.2-12.0 [facility] Work Phone: Platelet mean volume Entitic volume (Bld) 11.5 fL Normal 6.2-12.0 Comprehensi Internal Medicine Work Phone: Comment on above: [facility] [address] [place], [address] Platelets #/vol (Bld) 353 10*3/uL Normal 150-450 [facility] Work Phone: Comment on above: [facility] [address] [place], [place], [address] Platelets Auto #/vol (Bld) 353 10*3/uL Normal 150-450 [facility] Work Phone: RBC #/vol (Bld) 4.84 {M/mm3} Normal 4.2-5.4 Compreh ensive Internal Medicine Work Phone: Comment on above: [facility] [address] [place], [address] RBC Auto #/vol (Bld) 4.84 {M/mm3} Normal 4.2-5.4 Co mprehensive [facility] Work Phone: RDW SD 47.0 fL Abnormal 35.1-43.9 [facility] Work Phone: WBC #/vol (Bld) 9.0 10*3/uL Normal 4.4-11.0 Comprehe nsive Internal Medicine Work Phone: Comment on above: [facility] [address] [place], [address] WBC Auto #/vol (Bld) 9.0 10*3/uL Normal 4.4-11.0 Com prehensive Internal Medicine Work Phone: CBC, Employee 47.0 fL Abnormal 35.1-43.9 Comprehensi ve Internal Medicine Work Phone: Comment on above: [facility] [address] [place], [address] CBC, Employee 3.56 {X10_3/ul} Normal 0.83-4.51 Compre hensive Internal Medicine Work Phone: Comment on above: [facility] [address] [place], [place], [address] CBC, Employee 4.5 {X10_3/uL} Normal 2.0-7.7 Compreh ensive Internal Medicine Work Phone: Comment on above: [facility] [address] [place], [place], [address] Employee Profileon 7 A/G 0.9 {RATIO} Normal 0.9-2.4 [facility] Work Phone: Albumin mass conc 3.6 g/dL Normal 3.4-5.0 [facility] Work Phone: Comment on above: [facility] [address] [place], [place], [address] Albumin/Globulin mass ratio 0.9 {RATIO} Normal 0.9-2.4 [facility] Work Phone: Comment on above: [facility] [address] [place], [place], [address] ALP enzyme act/vol 81 U/L Normal 45-117 [facility] Internal Medicine Work Phone: ALT enzyme act/vol 24 U/L Normal 12-78 [facility] Internal Medicine Work Phone: Comment on above: [facility] [address] [place], [place], [address] AST enzyme act/vol 19 U/L Normal 15-37 [facility] Internal Medicine Work Phone: Comment on above: [facility] [address] [place], [place], [address] Bilirubin mass conc 0.40 mg/dL Normal 0.20-1.[address] [facility] Internal Medicine Work Phone: Comment on above: [facility] [address] [place], [address] Bilirubin.direct mass conc 0.12 mg/dL Normal 0.00-0.30 [facility] Work Phone: Comment on above: [facility] [address] [place], [place], [address] BUN/CRE 17.5 {RATIO} Normal 10-20 Comprehensiv e Internal Medicine Work Phone: Calcium mass conc 9.0 mg/dL Normal 8.5-10.1 Compreh ensive Internal Medicine Work Phone: Comment on above: [facility] [address] [place], [place], [phone] Chloride molar conc 105 mmol/L Normal 98-107 Compr ehensive Internal Medicine Work Phone: Comment on above: [facility] [address] [place], [place], [address] CHOL:HDL 3.20 1 Normal [facility] Work Phone: Cholesterol in HDL mass conc 71 mg/dL Normal [facility] Work Phone: Comment on above: The drugs N-Acetylcy steine and Metamizole may falselydepress this assay. Reference Range HDL <40 mg/dL Low HDL Cholesterol HDL >or= 60 mg/dL High HDL Cholesterol [facility] [address] [place], [place], [phone] Cholesterol in LDL mass conc 125 mg/dL Normal 0-130 [facility] Work Phone: Cholesterol in LDL mass conc 125 mg/dL Normal 0-130 [facility] Work Phone: Comment on above: [facility] [address] [place], [place], [phone] Cholesterol in VLDL mass conc 31 mg/dL Normal 5-40 [facility] Work Phone: Cholesterol mass conc 227 mg/dL Abnormal Com prehensive Internal Medicine Work Phone: Comment on above: <200 mg/dL Desirable 200-240 mg/dL Borderline >240 mg/dL High Risk [facility] [address] [place], [place], [phone] CO2 molar conc 27.0 mmol/L Normal 21.0-32.0 Comprehen sive Internal Medicine Work Phone: Comment on above: [facility] [address] [place], [place], [address] Creatinine mass conc 0.80 mg/dL Normal 0.55-1.02 [facility] Work Phone: Comment on above: The validity of the calculated GFR AND GFRAA in patients over70 years has not been determined. Clinical correlation isessential. [facility] [address] [place], [place], [phone] EST GFR - AA 93 mL/min Normal Comprehensiv e Internal Medicine Work Phone: Comment on above: GFR Calc GAP 9 1 Normal 5-15 [facility] Work Phone: GFR/1.73 sq M predicted among non-blacks MDRD vol rate/area (S/P/Bld) 77 mL/min/{1.73_m2} Normal Comp [facility] Work Phone: Comment on above: Non- GFR Calc [facility] [address] [place], [place], [address] Globulin Calculated mass conc (S) 3.8 g/dL Abnormal 2.3-3.5 [facility] Work Phone: Globulin mass conc (S) 3.8 g/dL Abnormal 2.3-3.5 Co [facility] Internal Medicine Work Phone: Comment on above: [place] [address] [place], [place], [address] Glucose mass conc 79 mg/dL Normal 70-110 Compreh [facility] Work Phone: Comment on above: [facility] [address] [place], [place], [address] LDH 179 U/L Normal 84-246 [facility] Work Phone: Phosphate mass conc 3.5 mg/dL Normal 2.5-4.[address] [facility] Internal Medicine Work Phone: Potassium molar conc 3.8 mmol/L Normal 3.5-5.1 Comp rehensive Internal Medicine Work Phone: Comment on above: [facility] [address] [place], [place], [address] Protein mass conc 7.4 g/dL Normal 6.4-8.2 Compreh ensive Internal Medicine Work Phone: Comment on above: [facility] [address] [place], [place], [address] Sodium molar conc 141 mmol/L Normal 136-145 Compreh ensive Internal Medicine Work Phone: Comment on above: [facility] [address] [place], [place], [address] Triglyceride mass conc 154 mg/dL Normal Co [facility] Work Phone: Comment on above: The drugs N-Acetylcy steine and Metamizole may falselydepress this assay.Serum Triglycerides Reference Interval Normal <150 mg/dL Borderline high 150 - 199 mg/dL High 200 - 499 mg/dL Very High > or = 500 mg/dL [facility] [address] [place], [place], [phone] Urea nitrogen mass conc 14 mg/dL Normal 7-18 C omprehensive Internal Medicine Work Phone: Comment on above: [facility] [address] [place], [place], [address] URIC 4.4 mg/dL Normal 2.6-6.0 [facility] Work Phone: Comment on above: The drugs N-Acetylcy steine and Metamizole may falselydepress this assay. Employee Profile 3.5 mg/dL Normal 2.5-4.9 Comprehe nsive Internal Medicine Work Phone: Comment on above: [facility] [address] [place], [place], [address] Employee Profile 81 U/L Normal 45-117 Comprehe nsive Internal Medicine Work Phone: Comment on above: [facility] [address] [place], [address] Employee Profile 9 1 Normal 5-15 Comprehe nsive Internal Medicine Work Phone: Comment on above: [facility] [address] [place], [address] Employee Profile 3.20 1 Normal Comprehe nsive Internal Medicine Work Phone: Comment on above: [place] [address] [place], [address] Employee Profile 93 mL/min Normal Comprehe nsive Internal Medicine Work Phone: Comment on above: GFR Calc [place] [address] [place], [place], [address] Employee Profile 17.5 {RATIO} Normal 10-20 Compre hensive Internal Medicine Work Phone: Comment on above: [place] [address] [place], [address] Employee Profile 179 U/L Normal 84-246 Comprehe nsive Internal Medicine Work Phone: Comment on above: [place] [address] [place], [address] Employee Profile 31 mg/dL Normal 5-40 Comprehe nsive Internal Medicine Work Phone: Comment on above: [place] [address] [place], [address] Employee Profile 4.4 mg/dL Normal 2.6-6.0 Comprehe nsive Internal Medicine Work Phone: Comment on above: The drugs N-Acetylcy steine and Metamizole may falselydepress this assay. [facility] [place], [place], [address] Nicotine Urine Drug Screenon 01-22-2017 COT DRG SCREEN Negative Normal Comprehens adela Internal Medicine Work Phone: Comment on above: Cotinine is the firs t-stage metabolite of Nicotine. TO BE CONFIRMED Normal Comprehen [facility] Internal Medicine Work Phone: Comment on [...] result, particularly whenpreliminary positive results are used. [facility] [address] [place], [address] Urinalysis, Employeeon 01-22 CLARITY Clear Normal [facility] Work Phone: Clarity Nom (U) Clear Normal Comprehen [facility] Internal Medicine Work Phone: Comment on above: [facility] [address] [place], [place], [address] COLOR Yellow Normal [facility] Work Phone: Color Nom (U) Yellow Normal Comprehensi Internal Medicine Work Phone: Comment on above: [facility] [address] [place], [place], [phone] GLUCOSE, UR Normal Normal [facility] Work Phone: KETONE UR Negative Normal [facility] Work Phone: OCCULT BLOOD-UR 10 /ul Abnormal Comprehen sive Internal Medicine Work Phone: pH UR 6.0 1 Normal 5.0 - 8.0 [facility] Work Phone: SP.GR. DIPSTX 1.015 1 Normal 1.002-1.030 [facility] Internal Medicine Work Phone: Urinalysis, Employee Negative Normal [facility] rehensive Internal Medicine Work Phone: Comment on above: [facility] [address] [place], [place], [id number] Cotinine is the firs t-stage metabolite of Nicotine. Urinalysis, Employee 10 /ul Abnormal [facility] Work [facility]: Comment on above: [facility] [address] [place], [place], [address] Urinalysis, Employee Normal Normal [facility] Work Phone: Comment on above: [facility] [address] [place], [place], [id number] Urinalysis, Employee 1.015 1 Normal 1.002-1.030 [facility] Internal Medicine Work Phone: Comment on above: [facility] [address] [place], [place], [phone] Urinalysis, Employee 6.0 1 Normal 5.0 - 8.0 [facility] Work Phone: Comment on above: [facility] [address] [place], [place], [phone] Comprehensive Metabolic Prof nmon 10-22-2016 Comprehensive metabolic 2000 panel 106 mmol/L Normal 98-107 [facility] Work Phone: Comment on above: [facility] [address] [place], [place], [phone] ; can review on 10/27 Comprehensive metabolic 2000 panel 27.0 mmol/L Normal 21.0-32.0 [facility] Work Phone: Comment on above: [facility] [address] [place], [address] ; can review on 10/27 Comprehensive metabolic 2000 panel 8 1 Normal 5-15 [facility] Work Phone: Comment on above: [facility] [address] [place], [place], [address] ; can review on 10/27 Comprehensive metabolic 2000 panel 141 mmol/L Normal 136-145 [facility] Work Phone: Comment on above: [facility] spital [address] [place], [place], [address] ; can review on 10/27 Comprehensive metabolic 2000 panel 0.60 mg/dL Normal 0.20-1.00 [facility] Work Phone: Comment on above: [facility] [address] [place], [address] ; can review on 10/27 Comprehensive metabolic 2000 panel 85 mg/dL Normal 70-110 [facility] Work Phone: Comment on above: [facility] [address] [place], [address] ; can review on 10/27 Comprehensive metabolic 2000 panel 82 U/L Normal 45-117 [facility] Work Phone: Comment on above: [facility] [address] [place], [address] ; can review on 10/27 Comprehensive metabolic 2000 panel 15 mg/dL Normal 7-18 [facility] Work Phone: Comment on above: [facility] [address] [place], [address] ; can review on 10/27 Comprehensive metabolic 2000 panel 0.88 mg/dL Normal 0.55-1.02 [facility] Work Phone: Comment on above: The validity of the calculated GFR AND GFRAA in patients over70 years has not been determined. Clinical correlation isessential. [facility] [address] [place], [place], [phone] ; can review on 10/27 Comprehensive metabolic 2000 panel 14 U/L Abnormal 15-37 [facility] Work Phone: Comment on above: [facility] [address] [place], [place], [address] ; can review on 10/27 Comprehensive metabolic 2000 panel 9.1 mg/dL Normal 8.5-10.1 [facility] Work Phone: Comment on above: [facility] [address] [place], [place], [address] ; can review on 10/27 Comprehensive metabolic 2000 panel 69 mL/min Normal [facility] Work Phone: Comment on above: Non- GFR Calc [facility] [address] [place], [place], [address] ; can review on 10/27 Comprehensive metabolic 2000 panel 83 mL/min Normal [facility] Work Phone: Comment on above: GFR Calc [facility] [address] [place], [place], [address] ; can review on 10/27 Comprehensive metabolic 2000 panel 17.1 {RATIO} Normal 10-20 [facility] Work Phone: Comment on above: [facility] [address] [place], [place], [address] ; can review on 10/27 Comprehensive metabolic 2000 panel 1.0 {RATIO} Normal 0.9-2.4 [facility] Work Phone: Comment on above: [facility] [address] [place], [place], [phone] ; can review on 10/27 Comprehensive metabolic 2000 panel 20 U/L Normal 12-78 [facility] Work Phone: Comment on above: [facility] [address] [place], [place], [address] ; can review on 10/27 Comprehensive metabolic 2000 panel 3.8 g/dL Abnormal 2.3-3.5 [facility] Work Phone: Comment on above: [facility] [address] [place], [place], [address] ; can review on 10/27 Comprehensive metabolic 2000 panel 7.5 g/dL Normal 6.4-8.2 [facility] Work Phone: Comment on above: [facility] [address] [place], [place], [address] ; can review on 10/27 Comprehensive metabolic 2000 panel 3.7 mmol/L Normal 3.5-5.1 [facility] Work Phone: Comment on above: [facility] [address] [place], [place], [address] ; can review on 10/27 Comprehensive metabolic 2000 panel 3.7 g/dL Normal 3.4-5.0 [facility] Work Phone: Comment on above: [facility] [address] [place], [place], [address] ; can review on 10/27 Hemoglobin A1con 10-22-2016 Hemoglobin A1c/Hemoglobin.total mass fraction (Bld) 5.9 % Normal 4.2-6.3 Comprehensiv e Internal Medicine Work Phone: Comment on above: [facility] [address] [place], [place], [address] Lipid Profileon 10-22-2016 Cholesterol in HDL mass conc 65 mg/dL Normal [facility] Work Phone: Comment on above: The drugs N-Acetylcy steine and Metamizole may falsely deressthis assay. Reference Range HDL <40 mg/dL Low HDL Cholesterol HDL >or= 60 mg/dL High HDL Cholesterol [facility] [address] [place], [place], [phone] Cholesterol in LDL mass conc 110 mg/dL Normal 0-130 [facility] Work Phone: Cholesterol in LDL mass conc 110 mg/dL Normal 0-130 [facility] Work Phone: Comment on above: [facility] [address] [place], [place], [address] Cholesterol in VLDL mass conc 26 mg/dL Normal 5-40 [facility] Work Phone: Comment on above: [facility] [address] [place], [place], [address] Cholesterol mass conc 201 mg/dL Abnormal Com [facility] Internal [facility] Work Phone: Comment on above: <200 mg/dL Desirable 200-240 mg/dL Borderline >240 mg/dL High Risk [facility] [address] [place], [place], [address] Triglyceride mass conc 132 mg/dL Normal Co [facility] Internal Medicine Work Phone: Comment on above: The drugs N-Acetylcy steine and Metamizole may falsely deressthis assay.Serum Triglycerides Reference Interval Normal <150 mg/dL Borderline high 150 - 199 mg/dL High 200 - 499 mg/dL Very High > or = 500 mg/dL [facility] [address] [place], [place], [address] Lipid Profile 26 mg/dL Normal 5-40 Comprehensi Internal Medicine Work Phone: Comment on above: [facility] [address] [place], [place], [address] Magnesiumon 10-22-2016 Magnesium mass conc 2.1 mg/dL Normal 1.8-2.[address] [facility] Internal Medicine Work Phone: Comment on above: [facility] [address] [place], [place], [address] Thyroid Stim Hormone (TSH)on 10-22-2016 Thyrotropin Qn 1.54 {uIU/mL} Normal 0.358-3.74 Compreh ensive Internal Medicine Work Phone: Comment on above: [facility] [address] [place], [phone] Vitamin B12on 10-22-2016 Cobalamin (Vitamin B12) mass conc 482 pg/mL Normal 211-911 [facility] Work Phone: Comment on above: [facility] [address] [place], [address] Vitamin D,25 Hydroxyon 10-22 Vitamin D 25-OH [...] 250 nmol/L) Toxicity >100 ng/mL (>250 nmol/L) [facility] [address] [place], [address] CBC, Employeeon 01-31-2016 Absolute Lymph 2.76 {X10_3/ul} Normal 0.83-4.51 Compr ehensive Internal Medicine Work Phone: Absolute Neut 4.0 {X10_3/uL} Normal 2.0-7.7 Compreh ensive Internal Medicine Work Phone: Basophils/100 WBC (Bld) 0.3 % Normal 0-1 C omprehensive Internal Medicine Work Phone: Comment on above: [facility] [address] [place], [address] Basophils/100 WBC Auto (Bld) 0.3 % Normal 0-1 [facility] Work Phone: Eosinophils/100 WBC (Bld) 3.3 % Normal 0-5 [facility] Work Phone: Comment on above: [facility] [address] [place], [address] Eosinophils/100 WBC Auto (Bld) 3.3 % Normal 0-5 [facility] Work Phone: Erythrocyte distribution width Auto Ratio (RBC) 14.3 % Normal 11.6-14.6 [facility] Work Phone: Erythrocyte distribution width Ratio (RBC) 14.3 % Normal 11.6-14.6 [facility] Work Phone: Comment on above: [facility] [address] [place], [address] Hematocrit Auto Volume Fraction (Bld) 41.9 % Normal 37-47 [facility] Work Phone: Hematocrit Volume Fraction (Bld) 41.9 % Normal 37-47 [facility] Work Phone: Comment on above: [facility] [address] [place], [address] Hemoglobin mass conc (Bld) 13.3 g/dL Normal 12.0-15.0 [facility] Work Phone: Comment on above: [facility] [address] [place], [address] Lymphocytes/100 WBC (Bld) 36.4 % Normal 19-41 [facility] Work Phone: Comment on above: [facility] [address] [place], [address] Lymphocytes/100 WBC Auto (Bld) 36.4 % Normal 19-41 [facility] Work Phone: MCH Auto Entitic mass (RBC) 28.3 pg Normal 27.0-32.0 [facility] Work Phone: MCH Entitic mass (RBC) 28.3 pg Normal 27.0-32.0 [facility] Work Phone: Comment on above: [facility] [address] [place], [address] MCHC Auto mass conc (RBC) 31.7 {g/gl} Abnormal 32-36 [facility] Work Phone: MCHC mass conc (RBC) 31.7 {g/gl} Abnormal 32-36 [facility] prehensive Internal Medicine Work Phone: Comment on above: [facility] [address] [place], [place], [phone]([phone] MCV Auto Entitic volume (RBC) 89.1 fL Normal 81-99 [facility] Work Phone: MCV Entitic volume (RBC) 89.1 fL Normal 81-99 [facility] Work Phone: Comment on above: [facility] [address] [place], [address] Monocytes/100 WBC Auto (Bld) 7.5 % Normal 0-10 [facility] Work Phone: Comment on above: [facility] [address] [place], [address] Neutrophils/100 WBC (Bld) 52.4 % Normal 47-70 [facility] Work Phone: Comment on above: [facility] [address] [place], [address] Neutrophils/100 WBC Auto (Bld) 52.4 % Normal 47-70 [facility] Work Phone: Platelet mean volume Auto Entitic volume (Bld) 10.9 fL Normal 6.2-12.0 [facility] Work Phone: Platelet mean volume Entitic volume (Bld) 10.9 fL Normal 6.2-12.0 Comprehensi ve Internal Medicine Work Phone: Comment on above: [facility] [address] [place], [address] Platelets #/vol (Bld) 376 10*3/uL Normal 150-450 Co mprehensive Internal Medicine Work Phone: Comment on above: [facility] [address] [place], [address] Platelets Auto #/vol (Bld) 376 10*3/uL Normal 150-450 [facility] Work Phone: RBC #/vol (Bld) 4.70 {M/mm3} Normal 4.2-5.4 Compreh ensive Internal Medicine Work Phone: Comment on above: [place] [address] [place], [address] RBC Auto #/vol (Bld) 4.70 {M/mm3} Normal 4.2-5.4 Co mprehensive Internal Medicine Work Phone: RDW SD 46.4 fL Abnormal 35.1-43.9 [facility] Work Phone: WBC #/vol (Bld) 7.6 10*3/uL Normal 4.4-11.0 Comprehe nsive Internal Medicine Work Phone: Comment on above: [place] [address] [place], [address] WBC Auto #/vol (Bld) 7.6 10*3/uL Normal 4.4-11.0 Com prehensive Internal Medicine Work Phone: CBC, Employee 46.4 fL Abnormal 35.1-43.9 Comprehensi ve Internal Medicine Work Phone: Comment on above: [facility] [address] [place], [address] CBC, Employee 2.76 {X10_3/ul} Normal 0.83-4.51 [facility]pre [facility] Internal [facility] Work Phone: Comment on above: [facility] [address] [place], [address] CBC, Employee 4.0 {X10_3/uL} Normal 2.0-7.7 Compreh ensive Internal Medicine Work Phone: Comment on above: [facility] [address] [place], [address] Employee Profileon 6 A/G 0.9 {RATIO} Normal 0.9-2.4 [facility] Work Phone: Albumin mass conc 3.5 g/dL Normal 3.4-5.0 Compreh [facility] Work Phone: Comment on above: [facility] [address] [place], [address] Albumin/Globulin mass ratio 0.9 {RATIO} Normal 0.9-2.4 [facility] Work Phone: Comment on above: [facility] [address] [place], [place], [phone] ALP enzyme act/vol 78 U/L Normal 50-136 [facility] Work Phone: ALT enzyme act/vol 22 U/L Normal 12-78 Compre [facility] Internal Medicine Work Phone: Comment on above: [facility] [address] [place], [address] AST enzyme act/vol 23 U/L Normal 15-37 [facility] Internal Medicine Work Phone: Comment on above: Slight Hemolysis, Re sult may be falsely increased. [facility] [address] [place], [address] Bilirubin mass conc 0.60 mg/dL Normal 0.20-1.00 Compr ensive Internal Medicine Work Phone: Comment on above: [facility] [address] [place], [address] Bilirubin.direct mass conc 0.12 mg/dL Normal 0.00-0.30 [facility] Work Phone: Comment on above: [facility] [address] [place], [address] BUN/CRE 16.3 {RATIO} Normal 10-20 Comprehensiv e Internal Medicine Work Phone: Calcium mass conc 8.6 mg/dL Normal 8.5-10.1 Compreh ensive Internal Medicine Work Phone: Comment on above: [facility] [address] [place], [place], [address] Chloride molar conc 105 mmol/L Normal 98-107 Compr ensive Internal Medicine Work Phone: Comment on above: [facility] [address] [place], [place], [address] CHOL:HDL 4.40 1 Normal [facility] Work Phone: Cholesterol in HDL mass conc 62 mg/dL Normal [facility] Work Phone: Comment on above: The drugs N-Acetylcy steine and Metamizole may falsely deressthis assay. Reference Range HDL <40 mg/dL Low HDL Cholesterol HDL >or= 60 mg/dL High HDL Cholesterol [facility] [address] [place], [place], [phone] Cholesterol in LDL mass conc 187 mg/dL Abnormal 0-130 [facility] Work Phone: Cholesterol in LDL mass conc 187 mg/dL Abnormal 0-130 [facility] Work Phone: Comment on above: [facility] [address] [place], [place], [address] Cholesterol in VLDL mass conc 26 mg/dL Normal 5-40 [facility] Work Phone: Cholesterol mass conc 275 mg/dL Abnormal Com prehensive Internal Medicine Work Phone: Comment on above: <200 mg/dL Desirable 200-240 mg/dL Borderline >240 mg/dL High Risk [facility] [address] [place], [place], [id number] CO2 molar conc 26.0 mmol/L Normal 21.0-32.0 Comprehen [facility] Internal Medicine Work Phone: Comment on above: [facility] [address] [place], [place], [address] Creatinine mass conc 0.92 mg/dL Normal 0.55-1.20 Comp [facility] Work Phone: Comment on above: The validity of the calculated GFR AND GFRAA in patients over70 years has not been determined. Clinical correlation isessential. [facility] [address] [place], [place], [address] EST GFR - AA 79 mL/min Normal Comprehens e Internal Medicine Work Phone: Comment on above: GFR Calc GAP 7 1 Normal 5-15 [facility] Work Phone: GFR/1.73 sq M predicted among non-blacks MDRD vol rate/area (S/P/Bld) 65 mL/min/{1.73_m2} Normal [facility] Work Phone: Comment on above: Non- GFR Calc [place] [address] [place], [place], [address] Globulin Calculated mass conc (S) 3.8 g/dL Abnormal 2.3-3.5 [facility] Work Phone: Globulin mass conc (S) 3.8 g/dL Abnormal 2.3-3.5 Co [facility] Internal Medicine Work Phone: Comment on above: [facility] [address] [place], [place], [address] Glucose mass conc 88 mg/dL Normal 70-110 Compreh ensive Internal Medicine Work Phone: Comment on above: [facility] [address] [place], [address] LDH 229 U/L Normal 84-246 [facility] Work Phone: Comment on above: Slight Hemolysis, Re sult may be falsely increased. Phosphate mass conc 3.0 mg/dL Normal 2.5-4.9 Compr ehensive Internal Medicine Work Phone: Potassium molar conc 4.2 mmol/L Normal 3.5-5.1 Comp rehensive Internal Medicine Work Phone: Comment on above: Slight Hemolysis, Re sult may be falsely increased. [facility] [address] [place], [place], [address] Protein mass conc 7.3 g/dL Normal 6.4-8.2 Compreh ensive Internal Medicine Work Phone: Comment on above: [facility] [address] [place], [place], [address] Sodium molar conc 138 mmol/L Normal 136-145 Compreh ensive Internal Medicine Work Phone: Comment on above: [facility] [address] [place], [place], [address] Triglyceride mass conc 129 mg/dL Normal [facility] Work Phone: Comment on above: The drugs N-Acetylcy steine and Metamizole may falsely deressthis assay.Serum Triglycerides Reference Interval Normal <150 mg/dL Borderline high 150 - 199 mg/dL High 200 - 499 mg/dL Very High > or = 500 mg/dL [facility] [address] [place], [address] Urea nitrogen mass conc 15 mg/dL Normal 7-18 C omprehensive Internal Medicine Work Phone: Comment on above: [facility] [address] [place], [place], [address] URIC 4.2 mg/dL Normal 2.6-6.0 [facility] Work Phone: Comment on above: The drugs N-Acetylcy steine and Metamizole may falsely deressthis assay. Employee Profile 229 U/L Normal 84-246 Comprehe nsive Internal Medicine Work Phone: Comment on above: Slight Hemolysis, Re sult may be falsely increased. [facility] [address] [place], [place], [address] Employee Profile 26 mg/dL Normal 5-40 Comprehe nsive Internal Medicine Work Phone: Comment on above: [facility] [address] [place], [address] Employee Profile 4.40 1 Normal Comprehe nsive Internal Medicine Work Phone: Comment on above: [place] [address] [place], [address] Employee Profile 7 1 Normal 5-15 Comprehe nsive Internal Medicine Work Phone: Comment on above: [facility] [address] [place], [address] Employee Profile 78 U/L Normal 50-136 Comprehe nsive Internal Medicine Work Phone: Comment on above: [facility] [address] [place], [address] Employee Profile 3.0 mg/dL Normal 2.5-4.9 Comprehe nsive Internal Medicine Work Phone: Comment on above: [facility] [address] [place], [place], [address] Employee Profile 4.2 mg/dL Normal 2.6-6.0 Comprehe nsive Internal Medicine Work Phone: Comment on above: The drugs N-Acetylcy steine and Metamizole may falsely deressthis assay. [facility] [address] [place], [place], [address] Employee Profile 16.3 {RATIO} Normal 10-20 [facility]pre [facility] Internal Medicine Work Phone: Comment on above: [facility] [address] [place], [place], [address] Employee Profile 79 mL/min Normal Comprehe nsive Internal Medicine Work Phone: Comment on above: GFR Calc [facility] [address] [place], [place], [phone] Nicotine Urine Drug Screenon 01-31-2016 COT DRG [...] is the firs t-stage metabolite of Nicotine. [facility] [address] [place], [place], [phone] How was Urine Obtain ed? CLEAN [facility] [address] [place], [place], [phone] Nicotine Urine Drug Screen Normal Comprehensive Internal [...] result, particularly whenpreliminary positive results are used. [facility] [address] [place], [place], [address] Urinalysis, Employeeon 01-30 CLARITY Sl. Cloudy Normal [facility] Medicine Work Phone: Clarity Nom (U) Sl. Cloudy Normal Compreholive [facility] Internal Medicine Work Phone: Comment on above: How was Urine Obtain ed? [facility] [address] [place], [place], [phone] COLOR Yellow Normal [facility] Medicine Work Phone: Color Nom (U) Yellow Normal [facility] Internal [facility] Work Phone: Comment on above: How was Urine Obtain ed? [facility] [address] [place], [place], [address] LEUK ESTERASE 25 /ul Abnormal Comprehensi ve Internal Medicine Work Phone: OCCULT BLOOD-UR Negative Normal [facility] Internal Medicine Work Phone: pH UR 6.5 1 Normal 5.0 - 8.0 [facility] Work Phone: SP.GR. DIPSTX 1.010 1 Normal 1.002-1.030 [facility] Work Phone: UROBILI Normal Normal [facility] Work Phone: Urinalysis, Employee 25 /ul Abnormal Comp rehensive Internal Medicine Work Phone: Comment on above: How was Urine Obtain ed? [facility] [id number] [place], [place], [id number] Urinalysis, Employee Normal Normal Comp re[facility] Work Phone: Comment on above: How was Urine Obtain ed? CLEAN [facility] [id number] [place], [place], [id number] Urinalysis, Employee 6.5 1 Normal 5.0 - 8.0 [facility] rehensive Internal Medicine Work Phone: Comment on above: How was Urine Obtain ed? [facility] [id number] [place], [address] Urinalysis, Employee 1.010 1 Normal 1.002-1.030 [facility] prehensive Internal Medicine Work Phone: Comment on above: How was Urine Obtain ed? [facility] [id number] [place], [address] Vital Signs Date Time Vital Sign Value Performing Clinician Facility 08-22-2024 11:56-0400 Body height 154.94 cm Herlinda Lopez GENERAL SUPERINTENDENT-C Work Phone: [facility] 08-22-2024 11:47-0400 Body mass index (BMI) [Ratio] 28.9 kg/m2 Herlinda Lopez GENERAL SUPERINTENDENT-C Work Phone: [facility] 08-22-2024 11:47-0400 Body weight 69.51 kg Herlinda Lopez GENERAL SUPERINTENDENT-C Work Phone: [facility] 08-22-2024 11:47-0400 Diastolic blood pressure 70 mm[Hg] Herlinda Lopez GENERAL SUPERINTENDENT-C Work Phone: [facility] 08-22-2024 11:47-0400 Systolic blood pressure 132 mm[Hg] Herlinda Lopez GENERAL SUPERINTENDENT-C Work Phone: [facility] 09-01-2023 10:37-0400 Body temperature 98.2 [degF] GENERAL SUPERINTENDENT-C Herlinda Lopez Work Phone: [facility] 09-01-2023 10:37-0400 Diastolic blood pressure 70 mm[Hg] GENERAL SUPERINTENDENT-C Herlinda Lopez Work Phone: [facility] 09-01-2023 10:37-0400 Heart rate 64 /min GENERAL SUPERINTENDENT-C Herlinda John Work Phone: [facility] 09-01-2023 10:37-0400 Respiratory rate 16 /min GENERAL SUPERINTENDENT-C Herlinda John Work Phone: [facility] 09-01-2023 10:37-0400 SaO2% (BldA) [Mass fraction] 99 % GENERAL SUPERINTENDENT-C Herlinda John Work Phone: [facility] 09-01-2023 10:37-0400 Systolic blood pressure 142 mm[Hg] GENERAL SUPERINTENDENT-C Herlinda John Work Phone: [facility] 05-14-2023 13:29-0500 Body temperature 98.3 [degF] GENERAL SUPERINTENDENT-C Herlinda John Work Phone: [facility] 05-14-2023 13:29-0500 Diastolic blood pressure 81 mm[Hg] GENERAL SUPERINTENDENT-C Herlinda John Work Phone: [facility] 05-14-2023 13:29-0500 Heart rate 86 /min GENERAL SUPERINTENDENT-C Herlinda John Work Phone: [facility] 05-14-2023 13:29-0500 Respiratory rate 18 /min GENERAL SUPERINTENDENT-C Herlinda John Work Phone: [facility] 05-14-2023 13:29-0500 SaO2% (BldA) [Mass fraction] 96 % GENERAL SUPERINTENDENT-C Herlinda Jonh Work Phone: [facility] 05-14-2023 13:29-0500 Systolic blood pressure 126 mm[Hg] GENERAL SUPERINTENDENT-C Herlinda John Work Phone: [facility] 05-14-2023 07:31-0500 Body height 154.94 cm GENERAL SUPERINTENDENT-C Herlinda John Work Phone: [facility] 05-14-2023 07:31-0500 Body mass index (BMI) [Ratio] 29.9 kg/m2 GENERAL SUPERINTENDENT-C Herlinda John Work Phone: [facility] 05-14-2023 07:31-0500 Body weight 72 kg JEAN Lopez Work Phone: [facility] 01-13-2023 09:14-0400 Body height 154.94 cm Mary Slarb CNC MILL OPERATOR [facility]; [facility] Work Phone: 01-13-2023 09:14-0400 Body mass index (BMI) [Ratio] 28.91 kg/m2 Mary Slarb CNC MILL OPERATOR [facility]; [facility] Work Phone: 01-13-2023 09:14-0400 Body surface area Derived from formula 1.69 m2 Mary Slarb CNC MILL OPERATOR [facility]; [facility] Work Phone: 01-13-2023 09:14-0400 Body temperature 96.8 [degF] Mary Slarb CNC MILL OPERATOR [facility]; [facility] Work Phone: Comment on above: Method: Temporal 01-13-2023 09:140400 Body weight 69.4 kg Mary Slarb CNC MILL OPERATOR [facility]; [facility] Work Phone: 01-13-2023 09:14-0400 Diastolic blood pressure 82 mm[Hg] Mary Slarb CNC MILL OPERATOR [facility]; [facility] Work Phone: Comment on above: Patient Position: Sitting; Cuff Location : Left Arm; Cuff Size: Standard 01-13-2023 09:14-0400 Heart rate 60 /min Mary Slarb CNC MILL OPERATOR [facility]; [facility] Work Phone: Comment on above: Pattern: Regular 01-13-2023 09:14-0400 Respiratory rate 16 /min Mary Slarb CNC MILL OPERATOR [facility]; [facility] Work Phone: Comment on above: Pattern: Unlabored 01-13-2023 09:14-0400 SaO2% (BldA) [Mass fraction] 98 % Mary Slarb CNC MILL OPERATOR [facility]; [facility] Work Phone: Comment on above: Room air 01-13-2023 09:14-0400 Systolic blood pressure 124 mm[Hg] Mary Slarb CNC MILL OPERATOR [facility]; [facility] Work Phone: Comment on above: Patient Position: Sitting; Cuff Location : Left Arm; Cuff Size: Standard 09-24-2022 13:51-0400 Body temperature 97.3 [degF] [facility] 09-24-2022 13:51-0400 Diastolic blood pressure 76 mm[Hg] [facility] 09-24-2022 13:51-0400 Heart rate 66 /min [facility] 09-24-2022 13:51-0400 Respiratory rate 16 /min [facility] 09-24-2022 13:51-0400 SaO2% (BldA) [Mass fraction] 97 % [facility] 09-24-2022 13:51-0400 Systolic blood pressure 128 mm[Hg] [facility] 09-24-2022 10:30-0400 Inhaled oxygen flow rate 4 L/min [facility] 09-24-2022 06:34-0400 Body height 154.94 cm [facility] 09-24-2022 06:34-0400 Body mass index (BMI) [Ratio] 28.7 kg/m2 [facility] 09-24-2022 06:34-0400 Body weight 69 kg [facility] 09-03-2022 10:33-0400 Body height 154.94 cm Mary Slarb CNC MILL OPERATOR [facility]; [facility] Work Phone: 09-03-2022 10:33-0400 Body mass index (BMI) [Ratio] 28.55 kg/m2 Mary Slarb CNC MILL OPERATOR [facility]; [facility] Work Phone: 09-03-2022 10:33-0400 Body surface area Derived from formula 1.68 m2 Mary Slarb CNC MILL OPERATOR [facility]; [facility] Work Phone: 09-03-2022 10:33-0400 Body temperature 97.5 [degF] Mary Slarb CNC MILL OPERATOR [facility]; [facility] Work Phone: Comment on above: Method: Temporal 09-03-2022 10:33-0400 Body weight 68.55 kg Mary Slarb CNC MILL OPERATOR [facility]; [facility] Work Phone: 09-03-2022 10:33-0400 Diastolic blood pressure 80 mm[Hg] Mary Slarb CNC MILL OPERATOR [facility]; [facility] Work Phone: Comment on above: Patient Position: Sitting; Cuff Location : Left Arm; Cuff Size: Standard 09-03-2022 10:33-0400 Heart rate 60 /min Mary Slarb CNC MILL OPERATOR [facility]; [facility] Work Phone: Comment on above: Pattern: Regular 09-03-2022 10:33-0400 Respiratory rate 15 /min Mary Slarb CNC MILL OPERATOR [facility]; [facility] Work Phone: Comment on above: Pattern: Unlabored 09-03-2022 10:33-0400 SaO2% (BldA) [Mass fraction] 99 % Mary Slarb CNC MILL OPERATOR [facility]; [facility] Work Phone: Comment on above: Room air 09-03-2022 10:33-0400 Systolic blood pressure 128 mm[Hg] Mary Slarb CNC MILL OPERATOR [facility]; [facility] Work [...] SaO2% (BldA) [Mass fraction] 99 % Zaida Hrebert MA [facility]; [facility] [...] 02-22-2020 07:54-0400 Body weight 70.78 kg Marlon Firedman LPN [facility] Work Phone: 02-22-2020 [...] Respiratory Rate 16 /min Marlon Friedman LPN [facility] Work Phone: Comment on above: Pattern: Unlabored 02-22-2020 07:54-0400 SaO2% (BldA) [Mass fraction] 99 % Marlon Friedman LPN [facility]; [facility] Work Phone: Comment on above: Room air 10-14-2019 07:40-0400 BMI (Body Mass Index) 31.93 kg/m2 Marlon Friedman LPN [facility] Work Phone: 10-14-2019 07:40-0400 Body Temperature 97.3 [degF] Marlon Friedman LPN [facility] Work Phone: Comment on above: Method: Temporal 10-14-2019 07:40-0400 Body weight 76.66 kg Marlon Friedman LPN [facility] Work Phone: 10-14-2019 07:40-0400 BP Diastolic 68 mm[Hg] Marlon Friedman LPN [facility] Work Phone: Comment on above: Patient Position: Sitting; Cuff Location : Left Arm; Cuff Size: Standard 10-14-2019 07:40-0400 BP Systolic 102 mm[Hg] Marlon Friedman LPN [facility] Work Phone: Comment on above: Patient Position: Sitting; Cuff Location : Left Arm; Cuff Size: Standard 10-14-2019 07:40-0400 BSA (Body Surface Area) 1.76 m2 Marlon Friedman LPN [facility] Work Phone: 10-14-2019 07:40-0400 Height 154.94 cm Marlon Friedman LPN [facility] Work Phone: 10-14-2019 07:40-0400 Pulse (Heart Rate) 80 /min Marlon Friedman LPN [facility] Work Phone: Comment on above: Pattern: Regular 10-14-2019 07:40-0400 Pulse Oximetry 96 % Kaylynn Ashley [facility] Work Phone: Comment on above: Room air 10-14-2019 07:40-0400 Respiratory Rate 16 /min Marlon Friedman LPN [facility] Work Phone: Comment on above: Pattern: Unlabored 10-14-2019 07:40-0400 SaO2% (BldA) [Mass fraction] 96 % Marlon Friedman LPN [facility]; [facility] Work Phone: Comment on above: Room air 06-13-2019 16:30-0500 BMI (Body Mass Index) 31.37 kg/m2 Marlon Friedman LPN [facility] Work Phone: 06-13-2019 16:30-0500 Body Temperature 97.8 [degF] Marlon Friedman LPN [facility] Work Phone: Comment on above: Method: Temporal 06-13-2019 16:30-0500 Body weight 75.32 kg Marlon Friedman LPN [facility] Work Phone: 06-13-2019 16:30-0500 BP Diastolic 71 mm[Hg] Marlon Friedman LPN [facility] Work Phone: Comment on above: Patient Position: Sitting; Cuff Location : Left Arm; Cuff Size: Standard 06-13-2019 16:30-0500 BP Systolic 120 mm[Hg] Marlon Friedman LPN [facility] Work Phone: Comment on above: Patient Position: Sitting; Cuff Location : Left Arm; Cuff Size: Standard 06-13-2019 16:30-0500 BSA (Body Surface Area) 1.75 m2 Marlon Friedman LPN [facility] Work Phone: 06-13-2019 16:30-0500 Height 154.94 cm Marlon Friedman LPN [facility] Work Phone: 06-13-2019 16:30-0500 Pulse (Heart Rate) 71 /min Marlon Friedman LPN [facility] Work Phone: Comment on above: Pattern: Regular 06-13-2019 16:30-0500 Pulse Oximetry 98 % Kaylynn Ashley [facility] Work Phone: Comment on above: Room air 06-13-2019 16:30-0500 Respiratory Rate 16 /min Marlon Friedman LPN [facility] Work Phone: Comment on above: Pattern: Unlabored 06-13-2019 16:30-0500 SaO2% (BldA) [Mass fraction] 98 % Marlon Friedman LPN [facility]; [facility] Work Phone: Comment on above: Room air 03-07-2019 08:39-0400 BMI (Body Mass Index) 30.8 kg/m2 Marlon Friedman LPN [facility] Work Phone: 03-07-2019 08:39-0400 Body Temperature 97.3 [degF] Marlon Friedman LPN [facility] Work Phone: Comment on above: Method: Temporal 03-07-2019 08:39-0400 Body weight 73.94 kg Marlon Friedman LPN [facility] Work Phone: 03-07-2019 08:39-0400 BP Diastolic 78 mm[Hg] Marlon Friedman LPN [facility] Work Phone: Comment on above: Patient Position: Sitting; Cuff Location : Left Arm; Cuff Size: Standard 03-07-2019 08:39-0400 BP Systolic 130 mm[Hg] Marlon Friedman LPN [facility] Work Phone: Comment on above: Patient Position: Sitting; Cuff Location : Left Arm; Cuff Size: Standard 03-07-2019 08:39-0400 BSA (Body Surface Area) 1.73 m2 Marlon Friedman LPN [facility] Work Phone: 03-07-2019 08:39-0400 Height 154.94 cm Marlon Friedman LPN [facility] Work Phone: 03-07-2019 08:39-0400 Pulse (Heart Rate) 67 /min Marlon Friedman LPN [facility] Work Phone: Comment on above: Pattern: Regular 03-07-2019 08:39-0400 Pulse Oximetry 97 % Kaylynn Ashley [facility] Work Phone: Comment on above: [...] 10:42-0500 BP Diastolic 78 mm[Hg] Carolyn Rojas CONCRETE MIXER OPERATOR [facility] Work Phone: Comment on above: Patient Position: Sitting; Cuff Location : Left Arm; Cuff Size: Standard 03-23-2018 10:42-0500 BP Systolic 128 mm[Hg] Carolyn Rojas CONCRETE MIXER OPERATOR [facility] Work Phone: Comment on above: Patient Position: Sitting; Cuff Location : Left Arm; Cuff Size: Standard 03-23-2018 10:42-0500 BSA (Body Surface Area) 1.69 m2 Carolyn Rojas CMA [facility] Work Phone: 03-23-2018 10:42-0500 Height 154.94 cm Carolyn Rojas CONCRETE MIXER OPERATOR [facility] Work Phone: 03-23-2018 10:42-0500 Pulse (Heart Rate) 61 /min Carolyn Rojas CMA [facility] Work Phone: Comment on above: Pattern: Regular 03-23-2018 10:42-0500 Pulse Oximetry 99 % Kaylynn Ramirez [facility] Work Phone: Comment on above: Room air 03-23-2018 10:42-0500 Respiratory Rate 16 /min Carolyn Rojas CMA [facility] Work Phone: Comment on above: Pattern: Unlabored 03-23-2018 10:42-0500 SaO2% (BldA) [Mass fraction] 99 % Carolyn Rojas CMA [facility]; [facility] Work Phone: Comment on above: Room air 03-23-2018 10:42-0500 Weight 69.97 kg Kaylynn Ramirez [facility] Work Phone: 02-08-2018 15:26-0400 BMI (Body Mass Index) 29.14 kg/m2 Mily Chu [facility] Work Phone: 02-08-2018 15:26-0400 Body Temperature 98.2 [degF] Mily Chu [facility] Work Phone: Comment on above: Method: Temporal 02-08-2018 15:26-0400 Body weight 69.97 kg Mily Chu [facility] Work Phone: 02-08-2018 15:26-0400 BP Diastolic 68 mm[Hg] Mily Chu [facility] Work Phone: Comment on above: Patient Position: Sitting; Cuff Location : Left Arm; Cuff Size: Standard 02-08-2018 15:26-0400 BP Systolic 112 mm[Hg] Mily Chu [facility] Work Phone: Comment on above: Patient Position: Sitting; Cuff Location : Left Arm; Cuff Size: Standard 02-08-2018 15:26-0400 BSA (Body Surface Area) 1.69 m2 Mily Chu [facility] Work Phone: 02-08-2018 15:26-0400 Height 154.94 cm Mily Chu [facility] Work Phone: 02-08-2018 15:26-0400 Pulse (Heart Rate) 71 /min Mily Chu [facility] Work Phone: Comment on above: Pattern: Regular 02-08-2018 15:26-0400 Pulse Oximetry 98 % Kaylynn Ramirez [facility] Work Phone: Comment on above: Room air 02-08-2018 15:26-0400 Respiratory Rate 17 /min Mily Chu [facility] Work Phone: Comment on above: Pattern: Unlabored 02-08-2018 15:26-0400 SaO2% (BldA) [Mass fraction] 98 % Mily Chu [facility] Work Phone: Comment on above: Room air 02-08-2018 15:26-0400 Weight 69.97 kg Kaylynn Ramirez [facility] Work Phone: 02-16-2017 09:44-0400 BMI (Body Mass Index) 29.85 kg/m2 Gayle Friedman [facility] Work Phone: 02-16-2017 09:44-0400 Body Temperature 98.4 [degF] Gayle Friedman [facility] Work Phone: 02-16-2017 09:44-0400 Body weight 71.67 kg Gayle Friedman [facility] Work Phone: 02-16-2017 09:44-0400 BP Diastolic 82 mm[Hg] Gayle Friedman [facility] Work Phone: Comment on above: Patient Position: Sitting; Cuff Location : Left Arm; Cuff Size: Standard 02-16-2017 09:44-0400 BP Systolic 127 mm[Hg] Gayle Friedman [facility] Work Phone: Comment on above: Patient Position: Sitting; Cuff Location : Left Arm; Cuff Size: Standard 02-16-2017 09:44-0400 BSA (Body Surface Area) 1.71 m2 Gayle Friedman [facility] Work Phone: 02-16-2017 09:44-0400 Height 154.94 cm Gayle Friedman [facility] Work Phone: 02-16-2017 09:44-0400 Pulse (Heart Rate) 75 /min Gayle Friedman [facility] Work Phone: Comment on above: Pattern: Regular 02-16-2017 09:44-0400 Pulse Oximetry 96 % Kaylynn Ramirez [facility] Work Phone: Comment on above: Room air 02-16-2017 09:44-0400 Respiratory Rate 16 /min Gayle Friedman [facility] Work Phone: Comment on above: Pattern: Unlabored 02-16-2017 09:44-0400 SaO2% (BldA) [Mass fraction] 96 % Gayle Friedman [facility] Work Phone: Comment on above: Room air 02-16-2017 09:44-0400 Weight 71.67 kg Kaylynn Ramirez [facility] Work Phone: 01-27-2017 13:56-0400 BMI (Body Mass Index) 29.76 kg/m2 Mary Slarb CNC MILL OPERATOR [facility] Work Phone: 01-27-2017 13:56-0400 Body Temperature 97.6 [degF] Mary Slarb CNC MILL OPERATOR [facility] Work Phone: 01-27-2017 13:56-0400 Body weight 71.44 kg Mary Slarb CNC MILL OPERATOR [facility] Work Phone: 01-27-2017 13:56-0400 BP Diastolic 72 mm[Hg] Mary Slarb CNC MILL OPERATOR [facility] Work Phone: Comment on above: Patient Position: Sitting; Cuff Location : Left Arm; Cuff Size: Standard 01-27-2017 13:56-0400 BP Systolic 122 mm[Hg] Mary Slarb CNC MILL OPERATOR [facility] Work Phone: Comment on above: Patient Position: Sitting; Cuff Location : Left Arm; Cuff Size: Standard 01-27-2017 13:56-0400 BSA (Body Surface Area) 1.71 m2 Mary Slarb CNC MILL OPERATOR [facility] Work Phone: 01-27-2017 13:56-0400 Height 154.94 cm Mary Slarb CNC MILL OPERATOR [facility] Work Phone: 01-27-2017 13:56-0400 Pulse (Heart Rate) 58 /min Mary Slarb CNC MILL OPERATOR [facility] Work Phone: Comment on above: Pattern: Regular 01-27-2017 13:56-0400 Pulse Oximetry 98 % Kaylynn Ramirez [facility] Work Phone: Comment on above: Room air 01-27-2017 13:56-0400 Respiratory Rate 18 /min Mary Hernandez LPN [facility] Work Phone: Comment on above: Pattern: Unlabored 01-27-2017 13:56-0400 SaO2% (BldA) [Mass fraction] 98 % Mary Hernandez CNC MILL OPERATOR [facility]; [facility] Work Phone: Comment on above: Room air 01-27-2017 13:56-0400 Weight 71.44 kg Kaylynn Ramirez [facility] Work Phone: 10-27-2016 08:47-0400 BMI (Body Mass Index) 30.99 kg/m2 Rama Garsia [facility] Work Phone: 10-27-2016 08:47-0400 Body Temperature 98 [degF] Rama Garsia [facility] Work Phone: Comment on above: Method: Temporal 10-27-2016 08:47-0400 Body weight 74.39 kg Rama Garsia [facility] Work Phone: 10-27-2016 08:47-0400 BP Diastolic 68 mm[Hg] Rama Garsia [facility] Work Phone: Comment on above: Patient Position: Sitting; Cuff Location : Left Arm; Cuff Size: Standard 10-27-2016 08:47-0400 BP Systolic 115 mm[Hg] Rmaa Garsia [facility] Work Phone: Comment on above: Patient Position: Sitting; Cuff Location : Left Arm; Cuff Size: Standard 10-27-2016 08:47-0400 BSA (Body Surface Area) 1.74 m2 Rama Garsia [facility] Work Phone: 10-27-2016 08:47-0400 Height 154.94 cm Rama Garsia [facility] Work Phone: 10-27-2016 08:47-0400 Pulse (Heart Rate) 65 /min Rama Garsia [facility] Work Phone: Comment on above: Pattern: Regular 10-27-2016 08:47-0400 Pulse Oximetry 97 % Kaylynn Ramirez [facility] Work Phone: Comment on above: Room air 10-27-2016 08:47-0400 Respiratory Rate 16 /min Rama Garsia [facility] Work Phone: Comment on above: Pattern: Unlabored 10-27-2016 08:47-0400 SaO2% (BldA) [Mass fraction] 97 % Rama Garsia [facility]; [facility] Work Phone: Comment on above: Room air 10-27-2016 08:47-0400 Weight 74.39 kg Kaylynn Ramirez [facility] Work Phone: 02-21-2016 11:09-0400 BMI [...] 10:53-0400 BP Diastolic 78 mm[Hg] Mary Slarb CNC MILL OPERATOR [facility] Work Phone: Comment on above: Patient Position: Sitting; Cuff Location : Left Arm; Cuff Size: Standard 02-05-2016 10:53-0400 BP Systolic 116 mm[Hg] Mary Macyrb CNC MILL OPERATOR [facility] Work Phone: Comment on [...] 10:53-0400 Pulse Oximetry 98 % Kaylynn Kingjose [facility] Work Phone: Comment on above: Room air 02-05-2016 10:53-0400 Respiratory Rate 17 /min Mary Slamerlin VELAZQUEZ [facility] Work Phone: Comment on above: Pattern: Unlabored 02-05-2016 10:53-0400 SaO2% (BldA) [Mass fraction] 98 % Mary Hernandez LPN [facility]; [facility] Work Phone: Comment on above: Room air 02-05-2016 10:53-0400 Weight 75.75 kg Kaylynn Ramirez [facility] Work Phone: Encounters Encounter Date Encounter Type Care Provider Facility Start: 05-03-2025 ambulatory Mahesh Machado Facility :[facility] Start: 03-02-2025 End: 03-02-2025 ambulatory Herlinda Lopez Facility:[facility] Start: 02-08-2025 End: 02-08-2025 ambulatory Herlinda Lopez GENERAL SUPERINTENDENT-C Work Phone: -Laboratory Start: 02-08-2025 End: 02-08-2025 Patient encounter procedure Herlinda Lopez GENERAL SUPERINTENDENT-C -Laboratory Work Phone: Start: 02-08-2025 End: 02-08-2025 ambulatory Herlinda Lopez Facility:[facility] Start: 08-25-2024 End: 08-25-2024 ambulatory Herlinda Lopez GENERAL SUPERINTENDENT-C Work Phone: [facility] Work Phone: Start: 08-25-2024 End: 08-25-2024 Patient encounter procedure Tanvi Michael GENERAL SUPERINTENDENT-C -[facility] Work Phone: Start: 08-25-2024 End: 08-25-2024 ambulatory Tanvi Rodriguez GENERAL SUPERINTENDENT Facility:[facility] Start: 08-22-2024 End: 08-22-2024 Patient encounter procedure Tanvi Michael GENERAL SUPERINTENDENT-C -[facility] Work Phone: Start: 08-22-2024 End: 08-22-2024 ambulatory Tanvi Rodriguez GENERAL SUPERINTENDENT [place] [place]: 08-17-2024 End: 08-17-2024 ambulatory Herlinda Lopez GENERAL SUPERINTENDENT-C Work Phone: [facility] Work Phone: Start: 08-17-2024 End: 08-17-2024 Patient encounter procedure Herlinda Lopez NP-C -[facility] Work Phone: Start: 08-17-2024 End: 08-17-2024 ambulatory Herlinda Lopez Facility:[facility] Start: 08-03-2024 End: 08-03-2024 ambulatory Herlinda Lopez GENERAL SUPERINTENDENT-C Work Phone: [facility] Work Phone: Start: 08-03-2024 End: 08-03-2024 Patient encounter procedure Herlinda Lopez GENERAL SUPERINTENDENT-C -Laboratory Work Phone: Start: 08-02-2024 End: 08-02-2024 Patient encounter procedure Herlinda Lopez GENERAL SUPERINTENDENT-C -Outpatient [facility]ometry Work Phone: Start: 08-02-2024 End: 08-03-2024 ambulatory Herlinda Lopez GENERAL SUPERINTENDENT-C Work Phone: [facility] Work Phone: Start: 09-15-2023 Non-patient / Non-visit GENERAL SUPERINTENDENT-C C donnie Lopez Work Phone: [facility] Start: 09-15-2023 End: 09-15-2023 ambulatory GENERAL SUPERINTENDENT-C Herlinda Lopez Work Phone: [facility] Work Phone: Start: 09-15-2023 End: 09-15-2023 Patient encounter procedure GENERAL SUPERINTENDENT-C Herlinda Lopez Work Phone: [facility]Cardiovascular Services Work Phone: Start: 09-01-2023 End: 09-01-2023 Patient encounter procedure GENERAL SUPERINTENDENT-C Herlinda Lopez Work Phone: [facility] Work Phone: Start: 07-20-2023 End: 07-20-2023 ambulatory GENERAL SUPERINTENDENT-C Herlinda Lopez Work Phone: [facility] Work Phone: Start: 07-20-2023 End: 07-20-2023 Patient encounter procedure GENERAL SUPERINTENDENT-C Herlinda Lopez Work Phone: [facility]-Outpatient Breast Imaging Work Phone: Start: 05-14-2023 End: 05-14-2023 Admission to same day surgery center GENERAL SUPERINTENDENT-C Herlinda Lopez Work Phone: [facility] Day Care Start: 05-14-2023 End: 05-14-2023 ambulatory GENERAL SUPERINTENDENT-C Herlinda Lopez Work Phone: [facility] Work Phone: Start: 04-30-2023 End: 04-30-2023 Non-patient / Non-visit GENERAL SUPERINTENDENT-C Herlinda Lopez Work Phone: [facility] Work Phone: Start: 01-13-2023 End: 01-23-2023 Office outpatient visit 15 minutes Herlinda Lopez CONCRETE FORM SETTER Work Phone: [facility] Start: 01-13-2023 Review Herlinda Lopez CONCRETE FORM SETTER Work Phone: [facility] Start: 01-09-2023 End: 01-09-2023 ambulatory GENERAL SUPERINTENDENT-C Herlinda Lopez Work Phone: [facility] Work Phone: Start: 01-09-2023 End: 01-09-2023 Patient encounter procedure GENERAL SUPERINTENDENT-C Herlinda Lopez Work Phone: [facility]Laboratory Work Phone: Start: 01-01-2023 End: 01-01-2023 Patient encounter procedure GENERAL SUPERINTENDENT-C Herlinda Lopez Work Phone: [facility] Work Phone: Start: 12-02-2022 End: 12-02-2022 Discharged Recurring GENERAL SUPERINTENDENT-C Herlinda Lopez Work Phone: [facility]-Physical Therapy Work Phone: Start: 09-24-2022 End: 09-24-2022 Admission to same day surgery center [facility] Start: 09-24-2022 End: 09-24-2022 ambulatory [facility] Work Phone: Start: 09-12-2022 End: 09-12-2022 ambulatory [facility] Work Phone: Start: 09-12-2022 End: 09-12-2022 Patient encounter procedure [facility]Cat Scan, [facility] Start: 09-04-2022 Review Herlinda Lopez CONCRETE FORM SETTER Work Phone: [facility] Start: 09-03-2022 End: 09-03-2022 Office consultation new/estab patient 30 min Herlinda John CONCRETE FORM SETTER Work Phone: [facility] Start: 09-03-2022 End: 09-03-2022 Preprocedural examination done Mary Hernandez LPN [facility]; [facility] Work Phone: Start: 08-27-2022 End: 08-27-2022 Patient encounter procedure [facility]Labor[facility] Start: 08-08-2022 ambulatory Kaylynn Ashley [facility] Internal Med Start: 06-23-2022 End: 06-23-2022 ambulatory [facility] Work Phone: Start: 06-23-2022 End: 06-23-2022 Patient encounter procedure [facility]Outpatient Breast Imaging Start: 06-20-2022 End: 06-20-2022 Office outpatient visit [address] [facility] Start: 06-10-2022 End: 06-10-2022 ambulatory [facility] Work Phone: Start: 06-10-2022 End: 06-10-2022 Patient encounter procedure [facility]Labor[facility] Start: 06-06-2022 End: 06-16-2022 Office outpatient visit [address] [facility] Start: 05-25-2022 Review Kaylynn chapman [facility] Start: 05-08-2022 End: 05-08-2022 Patient encounter procedure [facility]-Pre-Admission Testing Start: 07-25-2020 End: 07-25-2020 Periodic preventive med est patient 65yrs& older [address] [facility] Start: 07-02-2020 End: 07-02-2020 Office outpatient visit [address] [facility] Start: 02-22-2020 End: 02-22-2020 Office outpatient visit [address] [facility] Start: 10-14-2019 End: 10-14-2019 Office outpatient visit [address] [facility] Start: 10-07-2019 End: 10-07-2019 Annotation/Addendum [facility] [employer] Start: 10-06-2019 End: 10-06-[address] [employer] [facility] Start: 07-29-2019 End: 07-29-2019 Annotation/Addendum [facility] [employer] [facility] Start: 07-26-2019 End: 07-26-2019 Annotation/Addendum [facility] [employer] [facility] Start: 06-14-2019 End: 06-14-2019 Office outpatient visit [address] [facility] Start: 06-08-2019 End: 06-08-2019 Annotation/Addendum [facility] [employer] [facility] Start: 03-07-2019 End: 03-07-2019 Office outpatient visit [address] [facility] Start: 03-07-2019 Review Kaylynn Rodriguez adela [facility] Start: 11-01-2018 End: 11-01-2018 Office outpatient visit 25 minutes Kaylynn Ramirez Ray[facility] Start: 11-01-2018 Review Kaylynn Rodriguezens [place] [facility] Start: 08-26-2018 End: 08-26-2018 Annotation/Addendum Kaylynn Ashley [facility] [facility] Start: 03-23-2018 End: 03-23-2018 Office outpatient visit [address] [facility] Start: 02-08-2018 End: 02-08-2018 Periodic preventive med est patient 65yrs& older [address] [facility] Start: 09-14-2017 End: 09-16-2017 Annotation/Addendum Kaylynn Ramirez Rayna [employer] Start: 02-16-2017 End: 02-16-2017 Office [...] End: 03-25-2016 Phone Encounter Kaylynn Ramirez Rayna [employer] [facility] Start: 02-21-2016 End: 02-22-2016 Patient encounter Kaylynn Ramirez Rayna [employer] [facility] Start: 02-05-2016 End: 02-05-2016 Initial [...] Work Phone: Patient encounter status Mary Hernandez CNC MILL OPERATOR [facility]; [facility] Work Phone: End: 01-13-2023 Preprocedural examination done Herlinda Lopez YARIEL Work Phone: [facility]; [facility] Work Phone: Procedures Date Procedure Procedure Detail Performing Clinician Start: 08-25-2024 Pelvic echography Herlnida John GENERAL SUPERINTENDENT-C Work Phone: Start: 08-17-2024 Screening mammography Herlinda Lopez GENERAL SUPERINTENDENT- C Work Phone: Start: 08-02-2024 Body Composition - Initial Herlinda Lopez GENERAL SUPERINTENDENT-C Work Phone: Start: 07-20-2023 Screening mammography GENERAL SUPERINTENDENT-C Herlinda Iza beckford Work Phone: Start: 05-14-2023 Destructive procedure of vein GENERAL SUPERINTENDENT-C Herlinda John Work Phone: Start: 01-01-2023 End: 01-02-2023 Office Visit Report Procedure Note: See Note; NOTES: [facility] [address] [place] [address] OFFICE VISIT Date of Service: 01/01/23 MR#: [id number] Acct: [id number] Patient: NERISSA RG Rep #: [id number] : 1950 Provider: STANLEY Troncoso Age/Sex: 72/F Location: [facility] Status: Signed Employer Purchased Covid Test Note: Patient here today for Covid Testing, requested by their Employer. Assessment and Plan Assessment and Plan Orders: Orders POC Cepheid Covid, FluAB, RSV 01/01/23 01/02/23 0613 <Electronically signed by Roni ANGEL> Date Roni ANGEL Cosigner Signature: Date (if applicable) CC: Herlinda Lopez CONCRETE FORM SETTER Work Phone: Start: 11-20-2022 End: 11-20-2022 Re-Evaluation - PT (1) Procedure Note: See Note; NOTES: [facility] [address] [place] [address] / REEVALUATION / MEDICARE RECERTIFICATION PHYSICAL THERAPY MR#: [id number] Acct: [id number] Name: NERISSA RG Rep #: [id number] : 1950 72 From: Giovanny Gomez DPT [...] do not hesitate to contact me at [phone] by phone or if you have questions or concerns regarding this new plan of care! Sincerely, Giovanny Gomez DPT <Electronically signed by Giovanny Gomez DPT> 11/20/22 1201 CC: JEAN Lopez; Dr. Quinn Melissa MD CLS Signed For Medicare only, by signing this I certify the plan of care. Physicians Signature Date Herlinda Lopez CONCRETE FORM SETTER Work Phone: Start: 09-29-2022 End: 09-29-2022 Inital Evaluation (1) - PT Procedure Note: See Note; NOTES: [facility] [address] [place] [address] / REHABILITATION SERVICES INITIAL EVALUATION MR#: [id number] Acct: [id number] Name: NERISSA RG Rep #: [id number] : 1950 72 From: Giovanny Gomez DPT [...] fever. 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 Pt. does have to be on [...] to be FAXED BACK to us at [phone] for Medicare purposes. For Medicare only, by signing this I certify the plan of care. Please let me know if there are questions or concerns regarding this plan of care. Physician Signature: _Date: <Electronically signed by Giovanny Gomez DPT> 09/29/22 0855 CC: JEAN Lopez; Dr. Quinn Melissa MD CLS Signed Herlinda Lopez [facility] Work Phone: Start: 09-24-2022 End: 09-24-2022 Knee 1 or 2 Views Procedure Note: See Note; NOTES: [facility] Imaging Services [address] [place] [address] Knee 1 or 2 Views MR#: [id number] Acct: [id number] Name: NERISSA RG Rep #: [id number] : 1950 F 72 From: Howard pacheco MD PCP: JEAN Figueroa Status: [facility] Study: Knee 1 or 2 Views Date of Exam: 09/24/22 Exam# [id number] Ordering Dr: Quinn Melissa MD STUDY: X-RAY [...] CC: JEAN Lopez; Dr. Quinn Melissa MD Cotton Tipper: Signed Herlinda Lopez CNP Work Phone: Start: 09-24-2022 Radiologic examination of knee GENERAL SUPERINTENDENT-Dayanara Lopez Work Phone: Start: 09-24-2022 Total Knee Replacement Robotic Arm Raffy (Right) Start: 09-24-2022 End: 09-24-2022 Operative Report Procedure Note: See Note; NOTES: [facility] Medical Records Department [address] [place] [address] Operative Report 09/24/22 0733 MR#: [id number] Acct: [id number] Name: NERISSA RG Rep #: [id number] : 1950 72 From: Quinn Melissa MD PCP: JEAN Figueroa Status:REG [facility] Location: [place] [address] Report of Operation Date of Procedure: 09/24/22 Pre-Operative Diagnosis: Right knee primary osteoarthritis Post-Operative Diagnosis: Right knee primary osteoarthritis Surgery/Procedure Performed:: Right minimally invasive robotic total knee replacement Description of Surgical Findings:: Stable knee with good patella tracking Surgeon: Quinn Melissa grocery worker: Tj Owusu Type of Anesthesia: Spinal [...] cruciate retaining distal femoral press-fit component 2. Burbank size 3 press-fit tritanium tibial baseplate 3. [place] X3 9 mm CS polyethylene 4. [place] X3 32 mm press-fit asymmetric patella Brief [...] and cement was mixed in a vacuum. [employer] Simplex cement was used. The wound was [...] then awakened from anesthesia, [facility] and transferred to the PACU for recovery. Post op plan DVT ppx: ASA 81mg BID, thigh high compression stockings Follow up: in office in 2 weeks for wound check PT: to start POD #0 at hospital, outpatient PT should be arranged. My physician child welfare assistant was a vital part of this [...] Melissa MD> Cosigner Signature (if applicable): CC: GENERAL SUPERINTENDENT-C Herlinda Lopez; Dr. Quinn Melissa MD Signed Herlinda Lopez CONCRETE FORM SETTER Work Phone: Start: 09-12-2022 End: 09-12-2022 Extremity Lower without Contra Procedure Note: See Note; NOTES: [facility] Imaging Services [address] [place] [address] Extremity Lower without Contra MR#: [id number] Acct: [id number] Name: NERISSA RG Rep #: [id number] : 1950 F 72 From: Jung cespedes MD PCP: JEAN Figueroa Status: REG CLI Study: Extremity Lower without Contra Date of Exam: 0 09/12/22 Exam# [id number] Ordering Dr: Quinn Melissa MD CT RIGHT [...] CC: JEAN Lopez; Dr. Quinn Melissa MD Cotton Tipper: Signed Herlinda Lopez CNP Work Phone: Start: 09-12-2022 MRI of lower extremity Start: 09-09-2022 Nasal Screen MRSA/MSSA GENERAL SUPERINTENDENT-C Herlinda Lopez Work Phone: Start: 09-08-2022 End: 09-24-2022 History and Physical Exam Procedure Note: See Note; NOTES: [facility] Medical Records Department [address] [place] [address] History Physical Exam 09/08/22 1302 MR#: [id number] Acct: [id number] Name: NERISSA RG Rep #: [id number] : 1950 72 From: Tj ANGEL PA-C PCP: JEAN Figueroa Status:PRE IN Location: [facility] History and Physical History and Physical??? 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 Personal Habits:??? [...] JEAN Lopez; JEANETTE Owusu Signed Herlinda Lopez CONCRETE FORM SETTER Work Phone: Start: 06-23-2022 Screening mammography Start: 06-23-2022 End: 06-23-2022 SCRN MAMM (CAD)W/SAMANTHA BILAT Procedure Note: See Note; NOTES: [facility] Imaging Services [address] [place] [address] SCRN MAMM (CAD)W/SAMANTHA BILAT MR#: [id number] Acct: [id number] Name: NERISSA RG Rep #: [id number] : 1950 F 71 From: Jung cespedes MD PCP: JEAN Figueroa Status: [facility] Study: SCRN MAMM (CAD)W/SAMANTHA BILAT Date of Exam: 11/07 Exam# [id number] Ordering Dr: Herlinda Lopez MAMMOGRAPHY - BILATERAL [...] delay biopsy of a clinically suspicious abnormality. [id number] Electronically Signed: Jung Sarmiento MD at 14:35 EST Reading Location ID and State: [facility] [place] , Service support , CC: Herlinda Lopez GENERAL SUPERINTENDENT; GENERAL SUPERINTENDENT-C Herlinda Lopez Cotton Tipper: Signed Herlinda Lopez CONCRETE FORM SETTER Work Phone: Start: 06-14-2021 End: 06-14-2021 PT D/C Summary (1) Procedure Note: See Note; NOTES: [facility] [address] [place] [address] / REHABILITATION SERVICES DISCHARGE SUMMARY MR#: [id number] Acct: [id number] Name: NERISSA RG Rep #: [id number] : 1950 70 From: Saskia Henry DPT [...] Goal Progress: Goal Met Plan: Discharge to [facility]. If there are questions or concerns regarding this patient's physical therapy, please feel free to call me at [phone]. Thank you for the referral of this patient. Sincerely, Saskia Henry DPT Balance/Gait/Functional tests - Balance/Special Test Scores Lower Extremity Functional Score: 75 <Electronically signed by Saskia Henry DPT> 06/14/21 1148 CC: JEAN Ramirez; Dr. Quinn Melissa MD ELR Signed Kaylynn Ramirez Start: 05-27-2021 End: 05-27-2021 Re-Evaluation - PT (1) Procedure Note: See Note; NOTES: [facility] [place] [address] / REEVALUATION / MEDICARE RECERTIFICATION PHYSICAL THERAPY MR#: [id number] Acct: [id number] Name: NERISSA RG Rep #: [id number] : 1950 70 From: Saskia Henry DPT [...] without pain. She did come in to [employer] on Thursday and did her own exercises. [...] do not hesitate to contact me at [phone] by phone or if you have questions [...] (1) - PT Comments: See Note; NOTES: [facility] [address] [place] [address] [address] [place] [address] / REHABILITATION SERVICES INITIAL EVALUATION MR#: [id number] Acct: [id number] Name: NERISSA RG Rep #: [id number] : 1950 70 From: Saskia Henry DPT [...] on her leg. Went and saw Dr. eMlissa- started her on Meloxicam and did an [...] to be FAXED BACK to us at [phone] for Medicare purposes. For Medicare only, by signing this I certify the plan of care. Please let me know if there are questions or concerns regarding this plan of care. Physician Signature: _Date: <Electronically signed by Saskia Henry DPT> 05/02/21 0856 CC: JEAN Ramirez; Dr. Quinn Melissa MD ELR Signed Kaylynn Ramirez CONCRETE FORM SETTER Work Phone: Start: 04-21-2021 End: 04-21-2021 Urgent Care Visit Report Comments: See Note; NOTES: [facility] [address] [place] [address] OFFICE VISIT Date of Service: 04/21/21 MR#: [id number] Acct: [id number] Name: NERISSA RG Rep #: [id number] : 1950 Provider: JEAN vital Age/Sex: 70/F Location: [facility] Status: Signed Intake Vital Signs 04/21/21 09:13 [...] mg PO QPM 09/24/17 [History Confirmed 04/21/21] [facility] Medical History Bone fracture Cataracts, bilateral [...] Signature: Date (if applicable) CC: JEAN Ramirez CONCRETE FORM SETTER Work Phone: Start: 01-11-2020 End: 01-12-2020 SCREEN MAMM (CAD) W/SAMANTHA BILAT Comments: See Note; NOTES: [facility] Imaging Services [address] [place] [address] SCREEN MAMM (CAD) W/SAMANTHA BILAT MR#: [id number] Acct: [id number] Name: NERISSA RG Rep #: [id number] : 1950 F 69 From: Jung cespedes MD PCP: JEAN Nicolas Status: [facility] Study: SCREEN MAMM (CAD) W/SAMANTHA BILAT Date of Exam: 0 01/11/20 Exam# [id number] Ordering Dr: Kaylynn Ramirez MAMMOGRAPHY - BILATERAL [...] delay biopsy of a clinically suspicious abnormality. [id number] Electronically Signed: Jung Sarmiento, at 8:03 EDT , Service support , CC: JEAN Ramirez Cotton Tipper: Signed Kaylynn Ramirez Work Phone: Start: 12-01-2018 End: 12-01-[address] w/CCTA Comments: See Note; NOTES: [facility] Imaging Services [address] [place] [address] w/CCTA MR#: [id number] Acct: [id number] Name: NERISSA RG Rep #: [id number] : 1950 F 68 From: Vicente Bonilla MD PCP: Kaylynn Ramirez NP Status: REG REF Study: Limited Chest CT w/CCTA Date of Exam: 12/01/18 Exam# [id number] Ordering Dr: Rebel Dudley MD HISTORY: HIGH [...] by: Vicente Bonilla MD Electronically Signed: Vicente Bonlila, at 15:24 EDT Tel , Service support , CC: BANDAR Ramirez; Rebel Dudley MD Cotton Tipper: Signed Kaylynn Ramirez Start: 08-24-2018 End: 08-25-2018 Dexa Bone Density Study Comments: See Note; NOTES: [facility] Imaging Services [address] [place] [address] Dexa Bone Density Study MR#: [id number] Acct: [id number] Name: NERISSA RG Rep #: [id number] : 1950 F 68 From: Jung Sarmiento MD PCP: Kaylynn Ramirez NP Status: REG CLI Study: Dexa Bone Density Study Date of Exam: 08/24/18 Exam# [id number] Ordering Dr: Kaylynn Ramirez GENERAL SUPERINTENDENT-C STUDY: DUAL ENERGY X-RAY ABSORPTIOMETRY / DXA [...] , Service support , CC: BANDAR Ramirez Cotton Tipper: Signed Kaylynn Ramirez Work Phone: Start: 08-24-2018 End: 09-01-2018 SCREENING MAMM (CAD), BILAT Comments: See Note; NOTES: [facility] Imaging Services [address] [place] [address] SCREENING MAMM (CAD), BILAT MR#: [id number] Acct: [id number] Name: NERISSA RG Rep #: [id number] : 1950 F 68 From: Jung Sarmiento MD PCP: Kaylynn Ramirez NP Status: [facility] Study: SCREENING MAMM (CAD), BILAT Date of Exam: 08/24/18 Exam# [id number] Ordering Dr: Kaylynn Ramirez GENERAL SUPERINTENDENT-C MAMMOGRAPHY - BILATERAL SCREENING REASON FOR EXAM: [...] delay biopsy of a clinically suspicious abnormality. [id number] Electronically Signed: Jung Sarmiento, at 14:59 EDT , Service support , CC: BANDAR Ramirez Cotton Tipper: Signed Kaylynn Ramirez Work Phone: Start: 11-11-2017 End: 11-11-2017 Plastic Surgery Visit Report Comments: See Note; NOTES: [facility] [address] [place] [address] OFFICE VISIT Date of Service: 09/24/17 MR#: [id number] Acct: [id number] Name: NERISSA RG Rep #: [id number] : 1950 Provider: Venecia Unger MD Age/Sex: 67/F Location: [facility] Status: Signed with Addenda ADDENDUM by Venecia Unger MD on 11/11/17 at 1856 Addendum entered and electronically signed by Venecia Unger MD 11/11/17 18:56: For the coding, there was no charge for the office visit since I performed an office procedure. So the charge will be for the procedure which in this case was [address]. Assessment AND Plan Problems 1. Neoplasm of unspecified behavior of bone, soft tissue, and skin D49.2 Medications New: 11/11/17 1856 <Electronically signed by Venecia Unger MD> Date Venecia Unger MD cc: Kaylynn Ramirez GENERAL SUPERINTENDENT * Signed Intake Vital Signs09/24/17 Height 5 ft 1 in 09/24/17 Weight: 162 lb 2 oz Intake Visit Reasons: procedure - shave excision left nasal dorsum near tip Machine Iii Coremaker Required: No Accompanied by: None Is patient [...] were included in a form from the [employer]. SUMMARY OF CASE [...] The CPT code for this procedure - 87597 11/11/17 1855 <Electronically signed by Venecia Unger MD> Date Venecia Unger MD Cosigner Signature: Date (if applicable) CC: Kaylynn Ramirez GENERAL SUPERINTENDENT Kaylynn Ramirez Appendectomy Sara Lj Comment on above: 1977 Appendectomy Yoly Johnson Comment on above: 1977 Appendectomy Marlon Bright Comment on above: 1977 Appendectomy Marlon Frideman Comment on above: 1977 Appendectomy Marlon Friedman Comment on above: 1977 Appendectomy Marlon Friedman Comment on above: 1977 Appendectomy Marlon Friedman Comment on above: 1977 Appendectomy Zaida Herbert MA Comment on above: 1977 Appendectomy Zaida Herbert MA Comment on above: 1977 Appendectomy Mary Slarb LP N Comment on above: 1977 Appendectomy Mary Slarb LP N Comment on above: 1977 Colonoscopy Sara Liberty Comment on above: 2008 Colonoscopy Yoly Johnson [...] on above: 2008 Extraction of cataract Sara Liberty Extraction of cataract Yoly Johnson Extraction of cataract Marlon Bright Extraction of cataract Marlon Friedman Extraction of cataract Marlon Friedman Extraction of cataract Marlon Friedman Extraction of cataract Marlon Elder Extraction of cataract Zaida Herbert MA Extraction of cataract Zaida Herbert MA Extraction of cataract Mary Slarb CNC MILL OPERATOR Extraction of cataract Mary Slarb CNC MILL OPERATOR Mammography Sara Liberty Comment on above: 2014 Mammography Yoly Johnson Comment on above: 2014 Mammography Marlon Bright Comment on above: 2014 Mammography Marlon Eldre Comment on above: 2014 Mammography Marlon Elder Comment on above: 2014 Mammography Marlon Elder Comment on above: 2014 Mammography Marlon Elder Comment on above: 2014 Mammography Zaida [place] Comment on above: 2014 Mammography Zaida [place] Comment on above: 2014 Mammography Mary [...] examination of cervical Papanicolaou smear Mary Slarb CNC MILL OPERATOR Comment on above: Within Normal Limits. 2014 Microscopic examination of cervical Papanicolaou smear Mary Slarb CNC MILL OPERATOR Comment on above: Within Normal Limits. 2014 [...] 2007 Total replacement of hip Mary Slarb CNC MILL OPERATOR Comment on above: left Dr Gibbs 2007 Total replacement of hip Mary Slarb CNC MILL OPERATOR Comment on above: left Dr Gibbs 2007 Total replacement of right knee joint Mary Slarb CNC MILL OPERATOR Comment on above: 09/2022 Dr. Melissa Plan of Treatment Date Care Activity Detail Author Start: 05-14-2023 Anes veins of upper leg including exploration ANESTH UPPER LEG VEINS SURG [facility] Start: 05-14-2023 Endoven abltj incmpt nt vein xtr laser 1st vein ENDOVENOUS LASER 1ST VEIN [facility] Start: 05-14-2023 Endoven abltj incmpt nt vein xtr laser 2nd+ veins ENDOVENOUS LASER VEIN ADDON [facility] Start: 05-14-2023 Bedrest [facility] Start: 05-14-2023 Deep breathing and coughing exercises [facility] Start: 05-14-2023 Measuring intake and output [facility] Start: 05-14-2023 Medication education [facility] Start: 05-14-2023 Patient discharge [facility] Start: 05-14-2023 Patient education [facility] Start: 05-14-2023 Procedure discontinued [facility] Start: 05-14-2023 Provision of activit y privileges [facility] Start: 05-14-2023 Scheduling [facility] Start: 05-14-2023 Taking patient vital signs [facility] Start: 05-14-2023 Vital signs measurements [facility] Start: 05-14-2023 [facility] Start: 01-23-2023 Creatinine other source MICROA LB;CREAT RATION, RAND UR (60184) [facility] Work Phone: Start: 01-13-2023 Procedure Education Eprescribe d prescriptions (G5034) [facility]; [facility] Work Phone: Start: 09-24-2022 Anesth open/surg art hrs total knee arthroplasty ANESTH KNEE ARTHROPLASTY [facility] Start: 09-24-2022 Arthrp kne condyle&p latu medial&lat compartments TOTAL KNEE ARTHROPLASTY [facility] Start: 09-24-2022 Injection aa&/strd femoral nerve cont nfs cath NJX AA&/STRD FEM NRV NFS IMG [facility] Start: 09-24-2022 Radiologic examinati on of knee Knee 1 or 2 Views [facility] Start: 09-24-2022 XR Knee 1 or 2 Views [facility] Start: 09-24-2022 Application of ice collar, cap or bag [facility] Start: 09-24-2022 Exercises [facility] Start: 09-24-2022 Incentive spirometry [facility] Start: 09-24-2022 Neurovascular assessment [facility] Start: 09-24-2022 Patient discharge [facility] Start: 09-24-2022 Patient education [facility] Start: 09-24-2022 Provision of activit y privileges [facility] Start: 09-24-2022 Recommendation to continue with treatment [facility] Start: 09-24-2022 Referral to service [facility] Start: 09-24-2022 Vital signs measurements [facility] Start: 09-24-2022 Wound care [facility] Start: 09-24-2022 [facility] Start: 09-03-2022 Blood count complete auto&auto difrntl wbc CBC, PLATELETS & AUT DIFF (52067) [facility]; [facility] Work Phone: Start: 09-03-2022 Comprehensive metabo lic panel METABOLIC PANEL, COMPREHENSIVE (36563) [facility]; [facility] Work [...] h igh sensitivity C-REACT PROT HIGH SENS(hsCRP) (62047) [facility]; [facility] Work Phone: Start: 06-20-2022 Hemoglobin glycosyla marlo a1c HGB A1C (24352) [facility]; [facility] Work Phone: Start: 06-20-2022 Lipid panel LIPID PANEL (44802) [facility] Work Phone: Comment on above: in 6-8 wks Start: 06-20-2022 Procedure Education Eprescribe d prescriptions (G8553) [facility]; [facility] Work Phone: Start: 06-20-2022 Provider Instruction s for Treatment Follow up after consult [facility]; [facility] Work Phone: Start: 06-20-2022 Sedimentation rate r bc automated Sedimentation Rate-ESR (16686) [facility]; [facility] Work Phone: Start: 06-16-2022 Provider Instruction s for Treatment [facility]; [facility] Work Phone: Start: 06-06-2022 25 hydroxy includes fractions if performed CALCIFEDIOL (87718) [facility]; [facility] Work Phone: Start: 06-06-2022 Comprehensive metabo lic panel METABOLIC PANEL, COMPREHENSIVE (09519) [facility]; [facility] Work Phone: Start: 06-06-2022 Cyanocobalamin vitam in b-12 VITAMIN B12 AND FOLATES (02656) [facility]; [facility] Work Phone: Start: 06-06-2022 Procedure Education Eprescribe d prescriptions (G8553) [facility]; [facility] Work Phone: Start: 06-06-2022 Provider Instruction s for Treatment Follow up - Make appt after diagnostic tests [facility]; [facility] Work Phone: Start: 06-06-2022 Lipoprotein blood qu an numbers & subclasses NMR Profile (55668) [facility]; [facility] Work Phone: Start: 05-26-2022 Provider Instruction s for Treatment [facility]; [facility] Work Phone: Start: 05-26-2022 25 hydroxy includes fractions if performed CALCIFEDIOL (91182) [facility]; [facility] Work Phone: Start: 05-26-2022 Blood count complete auto&auto difrntl wbc CBC W/AUTO DIFF WBC (77698) [facility]; [facility] Work Phone: Start: 05-26-2022 Comprehensive metabo lic panel METABOLIC PANEL, COMPREHENSIVE (46630) [facility]; [facility] Work Phone: Start: 05-26-2022 Creatinine other source MICROA LB;CREAT RATION, RAND UR (71019) [facility]; [facility] Work Phone: Start: 05-26-2022 Lipid panel LIPID PANEL (77257) [facility]; [facility] Work Phone: Start: 05-25-2022 Gluc bld gluc mntr d ev cleared fda spec home use Blood Glucose , Office (22519) [facility]; [facility] Work Phone: Start: 05-25-2022 Hemoglobin glycosyla marlo a1c HgA1C , Office (39362) [facility]; [facility] Work Phone: Start: 05-25-2022 Procedure Education Eprescribe d prescriptions (G8553) [facility]; [facility] Work Phone: Start: 12-31-2020 Comprehensive metabo lic panel Metabolic Panel, Comprehensive (51392) [facility]; [facility] Work Phone: Start: 12-31-2020 Assay of thyroid stimulating hormone tsh TSH (THYROID STIMULATING HORMONE) (19965) [facility]; [facility] Work Phone: Start: 12-31-2020 TSH Qn TSH (THYROID STIMULATING HORMONE) (97995) [facility]; [facility] Work Phone: Start: 12-31-2020 Blood count complete automated CBC & PLATELETS (AUTO) (88990) [facility]; [facility] Work Phone: Start: 12-31-2020 Lipid panel LIPID PANEL (90265) [facility]; [facility] Work Phone: Start: 07-25-2020 Procedure Education Eprescribe d prescriptions (G8553) [facility]; [facility] Work Phone: Start: 07-25-2020 Provider Instruction s for Treatment [facility]; [facility] Work Phone: Start: 07-25-2020 Hepatitis c antibody HEPATITIS C ANTIBODY (52041) [facility]; [facility] Work [...] 02-22-2020 Hepatic function panel HEPATIC FUNCTION PANEL (05867) [facility] Work Phone: Comment on above: May 2020 Start: 02-22-2020 HbA1c (Bld) [Mass fraction] HGB A1C (31820) [facility] Work Phone: Comment on above: May 2020 Start: 02-22-2020 Hemoglobin glycosyla marlo a1c HGB A1C (51897) [facility]; [facility] Work Phone: Comment on above: May 2020 Start: 02-22-2020 25 hydroxy includes fractions if performed CALCIFEDIOL (41271) [facility] Work Phone: Comment on above: May 2020 Start: 02-22-2020 Lipoprotein blood qu an numbers & subclasses NMR Profile (19820) [facility] Work Phone: Comment on above: May 2020 Start: 10-14-2019 Procedure Education Eprescribe d prescriptions (G8553) [facility] Work Phone: Start: 10-14-2019 Provider Instruction s for Treatment [facility] Work Phone: Start: 10-14-2019 Blood count complete auto&auto difrntl wbc CBC, Platelets & Auto Diff (46276) [facility] Work Phone: Comment on above: Feb 2020 Start: 10-14-2019 Comprehensive metabo lic panel Metabolic Panel, Comprehensive (94846) [facility] Work Phone: Comment on above: Feb 2020 Start: 10-14-2019 25 hydroxy includes fractions if performed CALCIFEDIOL (95360) [facility] Work Phone: Comment on above: Feb 2020 Start: 10-14-2019 Cobalamin (Vitamin B 12) [Mass/Vol] VITAMIN B12 AND FOLATES (03782) [facility] Work Phone: Comment on above: Feb 2020 Start: 10-14-2019 Cyanocobalamin vitam in b-12 VITAMIN B12 AND FOLATES (83191) [facility]; [facility] Work Phone: Comment on above: Feb 2020 Start: 10-14-2019 Lipid panel Lipid Panel (22446) [facility] Work Phone: Comment on above: Feb 2020 Start: 10-14-2019 HbA1c (Bld) [Mass fraction] HGB A1C (00908) [facility] Work Phone: Start: 10-14-2019 Hemoglobin glycosyla marlo a1c HGB A1C (04470) [facility]; [facility] Work Phone: Start: 10-06-2019 HbA1c (Bld) [Mass fraction] HGB A1C (28549) [facility] Work Phone: Start: 10-06-2019 Hemoglobin glycosyla marlo a1c HGB A1C (91843) [facility]; [facility] Work Phone: Start: 06-14-2019 Procedure Education Eprescribe d prescriptions (G8553) [facility] Work Phone: Start: 06-14-2019 Provider Instruction s for Treatment [facility] Work Phone: Start: 06-07-2019 Urinalysis qual/semiquant except immunoassays URINALYSIS (37005) [facility] Work Phone: Start: 06-07-2019 25 hydroxy includes fractions if performed CALCIFEDIOL (31505) [facility] Work Phone: Start: 06-07-2019 Lipoprotein blood qu an numbers & subclasses NMR Profile (48075) [facility] Work Phone: Start: 06-07-2019 Comprehensive metabo lic panel Metabolic Panel, Comprehensive (47133) [facility] Work Phone: Start: 06-07-2019 HbA1c (Bld) [Mass fraction] HGB A1C (73656) [facility] Work Phone: Start: 06-07-2019 Hemoglobin glycosyla marlo a1c HGB A1C (18061) [facility]; [facility] Work Phone: Start: 03-07-2019 Procedure Education Eprescribe d prescriptions (G8553) [facility] Work Phone: Start: 03-07-2019 Provider Instruction s for Treatment [facility] Work Phone: Start: 01-31-2019 Hemoglobin A1c/Hemoglobin.total mass fraction (Bld) HGB A1C (08631) [facility] Work Phone: Comment on above: before april appt Start: 01-31-2019 Hemoglobin glycosyla marlo a1c HGB A1C (87179) [facility]; [facility] Work Phone: Comment on above: before april appt Start: 01-31-2019 Lipid panel LIPID PANEL (19680) [facility] Work Phone: Start: 01-31-2019 25 hydroxy includes fractions if performed CALCIFEDIOL (48944) [facility] Work Phone: Comment on above: 1 week before medica re exam -- in about 3 mos Start: 01-31-2019 Blood count manual c ell count each CBC WITH MANUAL DIFF (49454) [facility] Work Phone: Start: 01-31-2019 Comprehensive metabo lic panel Metabolic Panel, Comprehensive (34488) [facility] Work Phone: Start: 01-31-2019 Lipoprotein blood qu an numbers & subclasses NMR Profile (26775) [facility] Work Phone: Start: 11-01-2018 Procedure Education Eprescribe d prescriptions (G8553) [facility] Work Phone: Start: 11-01-2018 Provider Instruction s for Treatment [facility] Work Phone: Start: 11-01-2018 Assay of thyroid stimulating hormone tsh TSH (25516) [facility]; [facility] Work Phone: Start: 11-01-2018 Thyrotropin Qn TSH (56006) [facility] Work Phone: Start: 11-01-2018 Assay of magnesium MAGNESIUM (47336) [facility]; [facility] Work Phone: Start: 11-01-2018 Magnesium mass conc MAGNESIUM (77999 ) [facility] Work Phone: Start: 11-01-2018 Comprehensive metabo lic panel Metabolic Panel, Comprehensive (50638) [facility] Work Phone: Start: 11-01-2018 Blood count manual c ell count each CBC WITH MANUAL DIFF (71368) [facility] Work Phone: Start: 11-01-2018 Comprehensive metabo lic panel Metabolic Panel, Comprehensive (24771) [facility] Work Phone: Start: 11-01-2018 Cobalamin (Vitamin B 12) mass conc VITAMIN B-12 (CYANOCOBALAMIN) (77560) [facility] Work Phone: Start: 11-01-2018 Cyanocobalamin vitam in b-12 VITAMIN B-12 (CYANOCOBALAMIN) (40377) [facility]; [facility] Work Phone: Start: 11-01-2018 25 hydroxy includes fractions if performed CALCIFEDIOL (93268) [facility] Work Phone: Comment on above: 1 week before medica re exam -- in about 3 mos Start: 11-01-2018 HbA1c (Bld) [Mass fraction] HGB A1C (84431) [facility] Work Phone: Comment on above: before april appt Start: 03-23-2018 Procedure Education Eprescribe d prescriptions (G8553) [facility] Work Phone: Start: 03-23-2018 Provider Instruction s for Treatment Follow up in 4 months [facility] Work Phone: Start: 03-23-2018 Lipid panel LIPID PANEL (26950) [facility] Work Phone: Comment on above: July 2018 Start: 03-23-2018 Hemoglobin A1c/Hemoglobin.total mass fraction (Bld) HGB A1C (37547) [facility] Work Phone: Comment on above: July 2018 Start: 03-23-2018 Hemoglobin glycosyla marlo a1c HGB A1C (28435) [facility]; [facility] Work Phone: Comment on above: July 2018 Start: 03-23-2018 Cobalamin (Vitamin B 12) mass conc VITAMIN B12 AND FOLATES (42570) [facility] Work Phone: Comment on above: July 2018 Start: 03-23-2018 Cyanocobalamin vitam in b-12 VITAMIN B12 AND FOLATES (58004) [facility]; [facility] Work Phone: Comment on above: July 2018 Start: 03-23-2018 25 hydroxy includes fractions if performed CALCIFEDIOL (70775) [facility] Work Phone: Comment on [...] Hemoglobin A1c/Hemoglobin.total mass fraction (Bld) HGB A1C (61193) [facility] Work Phone: Comment on above: May 2017 Start: 02-16-2017 Hemoglobin glycosyla marlo a1c HGB A1C (05708) [facility]; [facility] Work Phone: Comment on above: May 2017 Start: 01-27-2017 Provider Instruction s for Treatment [facility] Work Phone: Start: 10-27-2016 Procedure Education Eprescribe d prescriptions (G8553) [facility] Work Phone: Start: 10-27-2016 Provider Instruction s for Treatment Follow up in 3 months [facility] Work Phone: Start: 10-27-2016 Urine albumin quantitative MICROALBUMIN: CREATININE RATIO (61279) AND (20948) [facility] Work Phone: Comment on above: Today Start: 10-27-2016 Urinalysis qual/semiquant except immunoassays URINALYSIS (40577) [facility] Work Phone: Comment on above: today Start: 10-27-2016 Glucose mass conc GLUCOSE (69994) [facility] Work Phone: Comment on above: Jan 2017 Start: 10-27-2016 Glucose quantitative blood xcpt reagent strip GLUCOSE (22046) [facility]; [facility] Work Phone: Comment on above: Jan 2017 Start: 10-27-2016 Hemoglobin A1c/Hemoglobin.total mass fraction (Bld) HGB A1C (54820) [facility] Work Phone: Comment on above: Jan 2017 Start: 10-27-2016 Hemoglobin glycosyla marlo a1c HGB A1C (12106) [facility]; [facility] Work Phone: Comment on above: Jan 2017 Start: 10-27-2016 25 hydroxy includes fractions if performed CALCIFEDIOL (70461) [facility] Work Phone: Comment on above: Jan 2017 Start: 10-27-2016 Lipid panel LIPID PANEL (81726) [facility] Work Phone: Comment on above: Jan 2017 Start: 02-21-2016 Procedure Education Eprescribe d prescriptions (G8553) [facility] Work Phone: Start: 02-21-2016 Assay of magnesium MAGNESIUM (37898) [facility]; [facility] Work Phone: Start: 02-21-2016 Magnesium mass conc MAGNESIUM (91742 ) [facility] Work Phone: Start: 02-21-2016 Assay of thyroid stimulating hormone tsh TSH (THYROID STIMULATING HORMONE) (07510) [facility]; [facility] Work Phone: Start: 02-21-2016 Thyrotropin Qn TSH (THYROID STIMULATING HORMONE) (86357) [facility] Work Phone: Start: 02-21-2016 25 hydroxy includes fractions if performed CALCIFEDIOL (56401) [facility] Work Phone: Start: 02-21-2016 Cobalamin (Vitamin B 12) mass conc VITAMIN B12 AND FOLATES (31304) [facility] Work Phone: Start: 02-21-2016 Cyanocobalamin vitam in b-12 VITAMIN B12 AND FOLATES (53215) [facility]; [facility] Work Phone: Start: 02-21-2016 Hemoglobin A1c/Hemoglobin.total mass fraction (Bld) HGB A1C (00380) [facility] Work Phone: Start: 02-21-2016 Hemoglobin glycosyla marlo a1c HGB A1C (68534) [facility]; [facility] Work Phone: Start: 02-21-2016 Lipid panel LIPID PANEL (79569) [facility] Work Phone: Start: 02-21-2016 Comprehensive metabo lic panel METABOLIC PANEL, COMPREHENSIVE (10442) [facility] Work Phone: Start: 02-05-2016 Provider Instruction s for Treatment [facility] Work Phone: Patient referral [facility] Work Phone: US Pelvis [facility] Work Phone: Comprehensive [...] Immunizations Immunization Date Immunization Notes Care Provider [facility] 03-07-2024 influenza, seasonal, injectable, preservative free Herlinda John GENERAL SUPERINTENDENT-C Work Phone: [facility] 04-02-2023 influenza, injectabl e, quadrivalent, preservative free [employer]AL SUPERINTENDENT-C Herlinda John Work Phone: [facility] 02-14-2022 influenza, injectabl e, quadrivalent, preservative free GENERAL SUPERINTENDENT-C Herlinda John Work Phone: [facility] 02-14-2022 influenza, seasonal, injectable [facility] 03-29-2021 Covid (Moderna) [facility] 02-20-2021 influenza, injectabl e, quadrivalent, preservative free GENERAL SUPERINTENDENT-C Herlinda John Work Phone: [facility] 02-20-2021 influenza, seasonal, injectable [facility] 06-12-2020 COVID-19 (Moderna) [facility]; [facility] Work Phone: 05-15-2020 Covid (Moderna) [facility] 04-17-2020 COVID-19 (Moderna) [facility]; [facility] Work Phone: 02-22-2020 influenza, injectabl e, quadrivalent, preservative free GENERAL SUPERINTENDENT-C Herlinda John Work Phone: [facility] 02-22-2020 influenza, seasonal, injectable [facility] 01-20-2020 zoster vaccine, live Kaylynn Ramirez [facility] Work Phone: 08-10-2019 pneumococcal conjuga te vaccine, 7 valent Kaylynn Ramirez [facility] Work Phone: 08-10-2019 zoster vaccine, live Kaylynn Ramirez [facility] Work Phone: 03-08-2019 influenza, injectabl e, quadrivalent, preservative free GENERAL SUPERINTENDENT-C Herlinda John Work Phone: [facility] 03-08-2019 influenza, seasonal, injectable [facility] 03-01-2018 influenza, injectabl e, quadrivalent, preservative free GENERAL SUPERINTENDENT-C Herlinda John Work Phone: [facility] 03-01-2018 influenza, seasonal, injectable [facility] 02-15-2018 influenza, seasonal, injectable [facility] Work Phone: 02-20-2017 influenza, injectabl e, quadrivalent, preservative free GENERAL SUPERINTENDENT-C Herlinda John Work Phone: [facility] 02-20-2017 influenza, seasonal, injectable [facility] 02-14-2016 influenza, injectabl e, quadrivalent, preservative free GENERAL SUPERINTENDENT-C Herlinda John Work Phone: [facility] 02-14-2016 influenza, seasonal, injectable [facility] 10-17-2015 TB Skin Test, Intradermal Kaylynn Ramirez [facility] Work Phone: 05-18-2015 influenza, seasonal, injectable Kaylynn Ramirez [facility] Work Phone: 05-18-2009 TD(adult) unspecifie d formulation Kaylynn Ramirez [facility] Work Phone: 05-18-2009 tetanus and diphther ia toxoids, adsorbed, preservative free, for adult use (5 Lf of tetanus toxoid and 2 Lf of diphtheria toxoid) Kaylynn Ramirez [facility] Work Phone: Payers Date Payer Category Payer Private Health Insurance [id number] 2024 Self-pay [id number] 2024 Self-pay [id number] 2024 Medicare [id number] 2020 Medicare [id number] 2020 Private Health Insurance CLI [id number] 2019 Unknown [id number] 1950 Unknown [id number] 2.16.84 [id number] Unknown Unknown [id number] Unknown [id number] 2.16.8 [id number] Unknown [id number] 2.16.8 [id number] Unknown [id number] 2.16.8 [id number] Unknown [id number] 2.16.8 [id number] Unknown [id number] 2.16.8 [id number] Unknown [id number] 2.16.8 [id number] Unknown [id number] 2.16.8 [id number] Unknown [id number] 2.16.8 [id number] Social History Date Type Detail Facility Alcohol [...] 1-2 times week Living Situation: Living Situation: [facility]; [facility] Work Phone: Tobacco use: Tobacco use: [facility]; [facility] Work Phone: Start: 05-08-2022 End: 09-01-2023 Tobacco smoking status NHIS Unknown if ever smoked [facility] Start: 1950 Sex Assigned At Female [facility] Start: 01-05-2024 Tobacco smoking status NHIS Never smoked tobacco (finding) [facility] Start: 08-11-2024 End: 08-30-2024 Sex Female (finding) [facility] Sex Female [facility] NEGATED: Highlighted row [facility] Medical Equipment Procedure Code Equipment Code Equipment Origin al Text Equipment Identifier Dates ([id number]) Metal-backed pat loyd prosthesis [id number] FDA Start: 09-24-2022 ([id number]) Coated knee femu r prosthesis [id number] FDA Start: 09-24-2022 ([id number]) Coated knee tibi a prosthesis ()[id number] FDA Start: 09-24-2022 Orthopaedic ceme nt, non-antimicrobial [id number] FDA Start: 09-24-2022 ([id number]) Tibial insert [id number] FDA Start: 09-24-2022 Goals Date Patient Goal Desired Activity /State Functional Status Date Assessment Result Facility 09-24-2022 Functional status With Assist of 1 [facility] Work Phone: Mental Status Date Assessment Result Facility 05-14-2023 Cognitive function Voice/Name;Touch/Shaki ng [facility] Work Phone: 09-24-2022 Cognitive function Voice/Name [facility] Work Phone: Clinical Notes 09-24-2022 to 08-25-2024 Note Date & Type Note Facility 08-25-2024 Radiology Diagnostic study note [facility] Imaging Services [address] [place] [address] Pelvic w/ Transvaginal MR#: [id number] Acct: [id number] Name: NERISSA RG Rep #: [id number] : 1950 F 74 From: Danika Gibbons DO PCP: JEAN Figueroa Status: REG C Study:Pelvic w/ Transvaginal Date of Exam: 08/25/24 Exam# [id number] Ordering Dr: Tanvi Rodriguez GENERAL SUPERINTENDENT GENERAL SUPERINTENDENT-C PROCEDURE: Pelvic ultrasound, transabdominal and transvaginal. 08/25/2024 [...] GRISELDAANAMARIACONSTANTINO CC: JEAN Lopez; JEAN Rodriguez ~ [place]: Signed [facility] 08-22-2024 Evaluation note Diagnosis Onset Date Resolution Postmenopausal bleeding acute A pril 2024 11:32am Stenosis, cervix acute August 11:32am [facility] Work Phone: [phone]) 912-916512-28-2023 Discharge summary Author Tyler Donahue [facility] May 14, 2023 11:28am Note Date/Time May 14, 2023 11:28am [facility] Medical Records Department [address] [place] [id number] Instructions for Home/Discharge Instructions 05/14/23 1124 MR#: [id number] Acct: [id number] Name: NERISSA RG Rep #:[id number] : 1950 72 From: Tyler Ayala PCP: [...] applicable. Discharge Plan Admission Attending Provider: Tyler Doanhue Primary Care Provider: Herlinda Lopez Discharge Orders/Prescriptions [...] by Tyler Donahue MD>Tyler Donahue MD CC: GENERAL SUPERINTENDENT-C Herlinda Lopez ~ Signed [facility] Work Phone: [phone]) [phone] History and physical note Author Tyler Donahue [facility] May 14, 2023 8:15am Note Date/Time May 10, 2023 10:51am [facility] Medical Records Department [address] [place] [address] History & Physical Exam 05/10/23 1047 MR#: [id number] Acct: [id number] Name: NERISSA RG Rep #:[id number] : 1950 72 From: Tyler Ayala PCP: JEAN Figueroa Status:REG S DC Location: [place] [address] HPI - General General Date of Admission: [...] compression stockings, weight control measures, active lifestyle, [id number] analgesics, etc. Despite these measures, the patient has remained symptomatic, with symptoms which have adversely affected daily activities, quality of life, and job functions. [facility] Medical History Alcohol use Arthritis Bladder [...] compression stockings, weight control measures, active lifestyle, [id number] analgesics, etc. Despite these measures, which have [...] Lopez; Dr. Tyler Donahue MD ~* Signed [facility] Work Phone: [phone]) [phone] Instructions* Name Dates Details Follow up in [...] Informa tion Online using Patient Portal and [employer] Apps Indication:Nonsmoker Start:25-Jul-2020 Instruction Type:Patient Education [...] for Treatment DISCONTINUED - NMR Profile ( 96722) Indication:Elevated cholesterol Start:01-Nov-2018 Instruction Type:Patient Education DISCONTINUED - METABOLIC HERNANDES EL, COMPREHENSIVE (43726) Indication:Elevated cholesterol Start:01-Nov-2018 Instruction Type:Patient Education How [...] [facility]; [facility] Work Phone: [phone]) [phone] Instructions* Name Dates Details Follow up in 4-6 months Indication:BMI 28.0-28.9,adult Start:13-Jan-2023 Instruction Type:Provider Instructions for Treatment Patient Instructions Indication:Impaired fasting glucose Start:13-Jan-2023 Instruction Type:Provider Instructions for Treatment How to Access Health Informa tion Online using Patient Portal and [employer] Indication:Impaired fasting glucose Start:13-Jan-2023 Instruction [...] for Treatment DISCONTINUED - NMR Profile ( 51013) Indication:Elevated cholesterol Start:01-Nov-2018 Instruction Type:Patient Education DISCONTINUED - METABOLIC HERNANDES EL, COMPREHENSIVE (55614) Indication:Elevated cholesterol Start:01-Nov-2018 Instruction Type:Patient Education How [...] Internal Medicine; [facility] Work Phone: [phone]) 888-600608-29-2023 Instructions* Name Dates Details Follow up in [...] for Treatment DISCONTINUED - NMR Profile ( 25609) Indication:Elevated cholesterol Start:01-Nov-2018 Instruction Type:Patient Education DISCONTINUED - METABOLIC HERNANDES EL, COMPREHENSIVE (46641) Indication:Elevated cholesterol Start:01-Nov-2018 Instruction Type:Patient Education How [...] Internal Medicine; [facility] Work Phone: [phone]) 655-276005-10-2023 History and physical note Author Dr. Melissa [facility] September 24, 2022 7:58am Note Date/Time September 08, 2022 1:0 3pm [facility] Medical Records Department [address] [place] [address] History & Physical Exam 09/08/22 1302 MR#: [id number] Acct: [id number] Name: NERISSA RG Rep #:[id number] : 1950 72 From: Tj ANGEL PA-C PCP: Herlinda Lopez NP-C Status:REG S DC Location: [place] [address] History and Physical History and Physical? 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 Personal Habits:? [...] Owusu; Dr. Quinn Melissa MD ~* Signed [facility] Work Phone: [phone]) [phone] Procedure [facility] Evaluation note* Diagnosis Onset Date Resolution Status Leg pain, left acute Varicose veins of left lower extremity with inflammation acute Chronic venous insufficiency [facility] Work Phone: Evaluation noteNo assessment information available [facility] Work Phone: Evaluation note* Diagnosis Onset Date Resolution Status Symptomatic varicose veins of right lower extremity acute Varicose veins of left lower extremity with inflammation acute Chronic venous insufficiency [facility] Work Phone: Hospital Discharge instructions Additional Instructions Implant Used?: Yes [facility] Work Phone: Hospital Discharge instructions Additional Instructions Implant Used?: [facility] Work Phone: Instructions* Name Dates Details [...] for Treatment DISCONTINUED - NMR Profile ( 21275) Indication:Elevated cholesterol Start:01-Nov-2018 Instruction Type:Patient Education DISCONTINUED - METABOLIC HERNANDES EL, COMPREHENSIVE (17729) Indication:Elevated cholesterol Start:01-Nov-2018 Instruction Type:Patient Education How [...] Informa tion Online using Patient Portal and [employer] Apps Indication:Impaired fasting glucose Start:26-May-2022 Instruction Type:Patient Education Patient Instructions Indication:Impaired fasting glucose Start:26-May-2022 Instruction Type:Provider Instructions for Treatment Patient Instructions Indication:Nonsmoker Start:25-Jul-2020 Instruction Type:Provider Instructions for Treatment How to Access Health Informa tion Online using Patient Portal and [employer] Apps Indication:Nonsmoker Start:25-Jul-2020 Instruction Type:Patient Education Patient [...] for Treatment DISCONTINUED - NMR Profile ( 39484) Indication:Elevated cholesterol Start:01-Nov-2018 Instruction Type:Patient Education DISCONTINUED - METABOLIC HERNANDES EL, COMPREHENSIVE (39171) Indication:Elevated cholesterol Start:01-Nov-2018 Instruction Type:Patient Education How [...] for Treatment DISCONTINUED - NMR Profile ( 10300) Indication:Elevated cholesterol Start:01-Nov-2018 Instruction Type:Patient Education DISCONTINUED - METABOLIC HERNANDES EL, COMPREHENSIVE (64664) Indication:Elevated cholesterol Start:01-Nov-2018 Instruction Type:Patient Education How [...] for Treatment DISCONTINUED - NMR Profile ( 48704) Indication:Elevated cholesterol Start:01-Nov-2018 Instruction Type:Patient Education DISCONTINUED - METABOLIC HERNANDES EL, COMPREHENSIVE (05155) Indication:Elevated cholesterol Start:01-Nov-2018 Instruction Type:Patient Education How [...] for Treatment DISCONTINUED - NMR Profile ( 23524) Indication:Elevated cholesterol Start:01-Nov-2018 Instruction Type:Patient Education DISCONTINUED - METABOLIC RAYNA EVANS (35058) Indication:Elevated cholesterol Start:01-Nov-2018 Instruction Type:Patient Education How [...] Informa tion Online using Patient Portal and [employer] Indication:Nonsmoker Start:06-Jun-2022 Instruction Type:Patient Education Patient Instructions Indication:Nonsmoker Start:06-Jun-2022 Instruction Type:Provider Instructions for Treatment Patient Instructions Indication:Nonsmoker Start:25-Jul-2020 Instruction Type:Provider Instructions for Treatment How to Access Health Informa tion Online using Patient Portal and [employer] Indication:Nonsmoker Start:25-Jul-2020 Instruction Type:Patient Education Patient Instructions Indication:Nonsmoker Start:02-Jul-2020 Instruction Type:Provider Instructions for Treatment How to Access Health Informa tion Online using Patient Portal and [employer] Indication:Nonsmoker Start:02-Jul-2020 Instruction Type:Patient Education [...] for Treatment DISCONTINUED - NMR Profile ( 25702) Indication:Elevated cholesterol Start:01-Nov-2018 Instruction Type:Patient Education DISCONTINUED - METABOLIC HERNANDES EL, COMPREHENSIVE (38226) Indication:Elevated cholesterol Start:01-Nov-2018 Instruction Type:Patient Education How [...] for Treatment DISCONTINUED - NMR Profile ( 47264) Indication:Elevated cholesterol Start:01-Nov-2018 Instruction Type:Patient Education DISCONTINUED - METABOLIC HERNANDES EL, COMPREHENSIVE (06973) Indication:Elevated cholesterol Start:01-Nov-2018 Instruction Type:Patient Education How [...] for Treatment DISCONTINUED - NMR Profile ( 15614) Indication:Elevated cholesterol Start:01-Nov-2018 Instruction Type:Patient Education DISCONTINUED - METABOLIC HERNANDES EL, COMPREHENSIVE (89694) Indication:Elevated cholesterol Start:01-Nov-2018 Instruction Type:Patient Education How [...] for Treatment DISCONTINUED - NMR Profile ( 59528) Indication:Elevated cholesterol Start:01-Nov-2018 Instruction Type:Patient Education DISCONTINUED - METABOLIC HERNANDES EL, COMPREHENSIVE (09293) Indication:Elevated cholesterol Start:01-Nov-2018 Instruction Type:Patient Education How [...] for Treatment DISCONTINUED - NMR Profile ( 02258) Indication:Elevated cholesterol Start:01-Nov-2018 Instruction Type:Patient Education DISCONTINUED - METABOLIC HERNANDES EL, COMPREHENSIVE (74790) Indication:Elevated cholesterol Start:01-Nov-2018 Instruction Type:Patient Education How [...] for referral (narrative)No reason for referral information availableWParkwood [facility] Work Phone: Family History No Family History Records FoundUnknown Family Member Name Dates Details Brother 1 Comments:high cholesterol, O A, Afib, HTN Status:Active Father Comments:HTN, Hypercholester ol, PVD Status:Active Maternal Grandfather Comments:CVA Status:Active Maternal Grandmother Comments:Leukemia Status:Active Mother Comments:Afib, OA, HTN, hype rcholesterol Status:Active Paternal Grandfather Comments:DE Status:Active Paternal Grandmother Status:Active Sister 1 Comments:Arthritis, High cho lesterol Status:Active Unknown Family Member Name Dates Details Brother 1 Comments:high cholesterol, O A, Afib, HTN Status:Active Father Comments:HTN, Hypercholester ol, PVD Status:Active Maternal Grandfather Comments:CVA Status:Active Maternal Grandmother Comments:Leukemia Status:Active Mother Comments:Afib, OA, HTN, hype rcholesterol Status:Active Paternal Grandfather Comments:DE Status:Active Paternal Grandmother Status:Active Sister 1 Comments:Arthritis, High cho lesterol Status:Active Unknown Family Member Name Dates Details Brother 1 Comments:high cholesterol, O A, Afib, HTN Status:Active Father Comments:HTN, Hypercholester ol, PVD Status:Active Maternal Grandfather Comments:CVA Status:Active Maternal Grandmother Comments:Leukemia Status:Active Mother Comments:Afib, OA, HTN, hype rcholesterol Status:Active Paternal Grandfather Comments:DE Status:Active Paternal Grandmother Status:Active Sister 1 Comments:Arthritis, High cho lesterol Status:Active Unknown Family Member Name Dates Details Brother 1 Comments:high cholesterol, O A, Afib, HTN Status:Active Father Comments:HTN, Hypercholester ol, PVD Status:Active Maternal Grandfather Comments:CVA Status:Active Maternal Grandmother Comments:Leukemia Status:Active Mother Comments:Afib, OA, HTN, hype rcholesterol Status:Active Paternal Grandfather Comments:DE Status:Active Paternal Grandmother Status:Active Sister 1 Comments:Arthritis, High cho lesterol Status:Active Unknown Family Member Name Dates Details Brother 1 Comments:high cholesterol, O A, Afib, HTN Status:Active Father Comments:HTN, Hypercholester ol, PVD Status:Active Maternal Grandfather Comments:CVA Status:Active Maternal Grandmother Comments:Leukemia Status:Active Mother Comments:Afib, OA, HTN, hype rcholesterol Status:Active Paternal Grandfather Comments:DE Status:Active Paternal Grandmother Status:Active Sister 1 Comments:Arthritis, High cho lesterol Status:Active Unknown Family Member Name Dates Details Brother 1 Comments:high cholesterol, O A, Afib, HTN Status:Active Father Comments:HTN, Hypercholester ol, PVD Status:Active Maternal Grandfather Comments:CVA Status:Active Maternal Grandmother Comments:Leukemia Status:Active Mother Comments:Afib, OA, HTN, hype rcholesterol Status:Active Paternal Grandfather Comments:DE Status:Active Paternal Grandmother Status:Active Sister 1 Comments:Arthritis, High cho lesterol Status:Active Unknown Family Member Name Dates Details Brother 1 Comments:high cholesterol, O A, Afib, HTN Status:Active Father Comments:HTN, Hypercholester ol, PVD Status:Active Maternal Grandfather Comments:CVA Status:Active Maternal Grandmother Comments:Leukemia Status:Active Mother Comments:Afib, OA, HTN, hype rcholesterol Status:Active Paternal Grandfather Comments:DE Status:Active Paternal Grandmother Status:Active Sister 1 Comments:Arthritis, High cho lesterol Status:Active Unknown Family Member Name Dates Details Brother 1 Comments:high cholesterol, O A, Afib, HTN Status:Active Father Comments:HTN, Hypercholester ol, PVD Status:Active Maternal Grandfather Comments:CVA Status:Active Maternal Grandmother Comments:Leukemia Status:Active Mother Comments:Afib, OA, HTN, hype rcholesterol Status:Active Paternal Grandfather Comments:DE Status:Active Paternal Grandmother Status:Active Sister 1 Comments:Arthritis, High cho lesterol Status:Active Unknown Family Member Name Dates Details Brother 1 Comments:high cholesterol, O A, Afib, HTN Status:Active Father Comments:HTN, Hypercholester ol, PVD Status:Active Maternal Grandfather Comments:CVA Status:Active Maternal Grandmother Comments:Leukemia Status:Active Mother Comments:Afib, OA, HTN, hype rcholesterol Status:Active Paternal Grandfather Comments:DE Status:Active Paternal Grandmother Status:Active Sister 1 Comments:Arthritis, High cho lesterol Status:Active Unknown Family Member Name Dates Details Brother 1 Comments:high cholesterol, O A, Afib, HTN Status:Active Father Comments:HTN, Hypercholester ol, PVD Status:Active Maternal Grandfather Comments:CVA Status:Active Maternal Grandmother Comments:Leukemia Status:Active Mother Comments:Afib, OA, HTN, hype rcholesterol Status:Active Paternal Grandfather Comments:DE Status:Active Paternal Grandmother Status:Active Sister 1 Comments:Arthritis, High cho lesterol Status:Active Unknown Family Member Name Dates Details Brother 1 Comments:high cholesterol, O A, Afib, HTN Status:Active Father Comments:HTN, Hypercholester ol, PVD Status:Active Maternal Grandfather Comments:CVA Status:Active Maternal Grandmother Comments:Leukemia Status:Active Mother Comments:Afib, OA, HTN, hype rcholesterol Status:Active Paternal Grandfather Comments:DE Status:Active Paternal Grandmother Status:Active Sister 1 Comments:Arthritis, High cho lesterol Status:Active Unknown Family Member Name Dates Details Brother 1 Comments:high cholesterol, O A, Afib, HTN Status:Active Father Comments:HTN, Hypercholester ol, PVD Status:Active Maternal Grandfather Comments:CVA Status:Active Maternal Grandmother Comments:Leukemia Status:Active Mother Comments:Afib, OA, HTN, hype rcholesterol Status:Active Paternal Grandfather Comments:DE Status:Active Paternal Grandmother Status:Active Sister 1 Comments:Arthritis, High cho lesterol Status:Active Unknown Family Member Name Dates Details Brother 1 Comments:high cholesterol, O A, Afib, HTN Status:Active Father Comments:HTN, Hypercholester ol, PVD Status:Active Maternal Grandfather Comments:CVA Status:Active Maternal Grandmother Comments:Leukemia Status:Active Mother Comments:Afib, OA, HTN, hype rcholesterol Status:Active Paternal Grandfather Comments:DE Status:Active Paternal Grandmother Status:Active Sister 1 Comments:Arthritis, High cho lesterol Status:Active Unknown Family Member Name Dates Details Brother 1 Comments:high cholesterol, O A, Afib, HTN Status:Active Father Comments:HTN, Hypercholester ol, PVD Status:Active Maternal Grandfather Comments:CVA Status:Active Maternal Grandmother Comments:Leukemia Status:Active Mother Comments:Afib, OA, HTN, hype rcholesterol Status:Active Paternal Grandfather Comments:DE Status:Active Paternal Grandmother Status:Active Sister 1 Comments:Arthritis, High cho lesterol Status:Active Unknown Family Member Name Dates Details Brother 1 Comments:high cholesterol, O A, Afib, HTN Status:Active Father Comments:HTN, Hypercholester ol, PVD Status:Active Maternal Grandfather Comments:CVA Status:Active Maternal Grandmother Comments:Leukemia Status:Active Mother Comments:Afib, OA, HTN, hype rcholesterol Status:Active Paternal Grandfather Comments:DE Status:Active Paternal Grandmother Status:Active Sister 1 Comments:Arthritis, High cho lesterol Status:Active Unknown Family Member Name Dates Details Brother 1 Comments:high cholesterol, O A, Afib, HTN Status:Active Father Comments:HTN, Hypercholester ol, PVD Status:Active Maternal Grandfather Comments:CVA Status:Active Maternal Grandmother Comments:Leukemia Status:Active Mother Comments:Afib, OA, HTN, hype rcholesterol Status:Active Paternal Grandfather Comments:DE Status:Active Paternal Grandmother Status:Active Sister 1 Comments:Arthritis, High cho lesterol Status:Active Unknown Family Member Name Dates Details Brother 1 Comments:high cholesterol, O A, Afib, HTN Status:Active Father Comments:HTN, Hypercholester ol, PVD Status:Active Maternal Grandfather Comments:CVA Status:Active Maternal Grandmother Comments:Leukemia Status:Active Mother Comments:Afib, OA, HTN, hype rcholesterol Status:Active Paternal Grandfather Comments:DE Status:Active Paternal Grandmother Status:Active Sister 1 Comments:Arthritis, High cho lesterol Status:Active Unknown Family Member Name Dates Details Brother 1 Comments:high cholesterol, O A, Afib, HTN Status:Active Father Comments:HTN, Hypercholester ol, PVD Status:Active Maternal Grandfather Comments:CVA Status:Active Maternal Grandmother Comments:Leukemia Status:Active Mother Comments:Afib, OA, HTN, hype rcholesterol Status:Active Paternal Grandfather Comments:DE Status:Active Paternal Grandmother Status:Active Sister 1 Comments:Arthritis, [...] OA, HTN, hype rcholesterol Status:Active Paternal Grandfather Comments:DE Status:Active Paternal Grandmother Status:Active Sister 1 Comments:Arthritis, High cho lesterol Status:Active Unknown Family Member Name Dates Details Brother 1 Comments:high cholesterol, O A, Afib, HTN Status:Active Father Comments:HTN, Hypercholester ol, PVD Status:Active Maternal Grandfather Comments:CVA Status:Active Maternal Grandmother Comments:Leukemia Status:Active Mother Comments:Afib, OA, HTN, hype rcholesterol Status:Active Paternal Grandfather Comments:DE Status:Active Paternal Grandmother Status:Active Sister 1 Comments:Arthritis, High cho lesterol Status:Active Unknown Family Member Name Dates Details Brother 1 Comments:high cholesterol, O A, Afib, HTN Status:Active Father Comments:HTN, Hypercholester ol, PVD Status:Active Maternal Grandfather Comments:CVA Status:Active Maternal Grandmother Comments:Leukemia Status:Active Mother Comments:Afib, OA, HTN, hype rcholesterol Status:Active Paternal Grandfather Comments:DE Status:Active Paternal Grandmother Status:Active Sister 1 Comments:Arthritis, High cho lesterol Status:Active Unknown Family Member Name Dates Details Brother 1 Comments:high cholesterol, O A, Afib, HTN Status:Active Father Comments:HTN, Hypercholester ol, PVD Status:Active Maternal Grandfather Comments:CVA Status:Active Maternal Grandmother Comments:Leukemia Status:Active Mother Comments:Afib, OA, HTN, hype rcholesterol Status:Active Paternal Grandfather Comments:DE Status:Active Paternal Grandmother Status:Active Sister 1 Comments:Arthritis, High cho lesterol Status:Active Unknown Family Member Name Dates Details Brother 1 Comments:high cholesterol, O A, Afib, HTN Status:Active Father Comments:HTN, Hypercholester ol, PVD Status:Active Maternal Grandfather Comments:CVA Status:Active Maternal Grandmother Comments:Leukemia Status:Active Mother Comments:Afib, OA, HTN, hype rcholesterol Status:Active Paternal Grandfather Comments:DE Status:Active Paternal Grandmother Status:Active Sister 1 Comments:Arthritis, High cho lesterol Status:Active Unknown Family Member Name Dates Details Brother 1 Comments:high cholesterol, O A, Afib, HTN Status:Active Father Comments:HTN, Hypercholester ol, PVD Status:Active Maternal Grandfather Comments:CVA Status:Active Maternal Grandmother Comments:Leukemia Status:Active Mother Comments:Afib, OA, HTN, hype rcholesterol Status:Active Paternal Grandfather Comments:DE Status:Active Paternal Grandmother Status:Active Sister 1 Comments:Arthritis, High cho lesterol Status:Active Unknown Family Member Name Dates Details Brother 1 Comments:high cholesterol, O A, Afib, HTN Status:Active Father Comments:HTN, Hypercholester ol, PVD Status:Active Maternal Grandfather Comments:CVA Status:Active Maternal Grandmother Comments:Leukemia Status:Active Mother Comments:Afib, OA, HTN, hype rcholesterol Status:Active Paternal Grandfather Comments:DE Status:Active Paternal Grandmother Status:Active Sister 1 Comments:Arthritis, High cho lesterol Status:Active Unknown Family Member Name Dates Details Brother 1 Comments:high cholesterol, O A, Afib, HTN Status:Active Father Comments:HTN, Hypercholester ol, PVD Status:Active Maternal Grandfather Comments:CVA Status:Active Maternal Grandmother Comments:Leukemia Status:Active Mother Comments:Afib, OA, HTN, hype rcholesterol Status:Active Paternal Grandfather Comments:DE Status:Active Paternal Grandmother Status:Active Sister 1 Comments:Arthritis, High cho lesterol Status:Active Unknown Family Member Name Dates Details Brother 1 Comments:high cholesterol, O A, Afib, HTN Status:Active Father Comments:HTN, Hypercholester ol, PVD Status:Active Maternal Grandfather Comments:CVA Status:Active Maternal Grandmother Comments:Leukemia Status:Active Mother Comments:Afib, OA, HTN, hype rcholesterol Status:Active Paternal Grandfather Comments:DE Status:Active Paternal Grandmother Status:Active Sister 1 Comments:Arthritis, [...] Dates Details DISCONTINUED - NMR Profile ( 32380) Indication:Elevated cholesterol Start:01-Nov-2018 Instruction Type:Patient Education DISCONTINUED - METABOLIC HERNANDES CARLOS, COMPREHENSIVE (49930) Indication:Elevated cholesterol Start:01-Nov-2018 Instruction Type:Patient Education How [...] Dates Details DISCONTINUED - NMR Profile ( 97356) Indication:Elevated cholesterol Start:01-Nov-2018 Instruction Type:Patient Education DISCONTINUED - METABOLIC HERNANDES EL, COMPREHENSIVE (33312) Indication:Elevated cholesterol Start:01-Nov-2018 Instruction Type:Patient Education How [...] for Treatment DISCONTINUED - NMR Profile ( 75071) Indication:Elevated cholesterol Start:01-Nov-2018 Instruction Type:Patient Education DISCONTINUED - METABOLIC HERNANDES EL, COMPREHENSIVE (50105) Indication:Elevated cholesterol Start:01-Nov-2018 Instruction Type:Patient Education How [...] for Treatment DISCONTINUED - NMR Profile ( [id number]) Indication:Elevated cholesterol Start:01-Nov-2018 Instruction Type:Patient Education DISCONTINUED - METABOLIC HERNANDES EL, COMPREHENSIVE ([id number]) Indication:Elevated cholesterol Start:01-Nov-2018 Instruction Type:Patient Education How [...] for Treatment DISCONTINUED - NMR Profile ( [id number]) Indication:Elevated cholesterol Start:01-Nov-2018 Instruction Type:Patient Education DISCONTINUED - METABOLIC HERNANDES EL, COMPREHENSIVE ([id number]) Indication:Elevated cholesterol Start:01-Nov-2018 Instruction Type:Patient Education How [...] for Treatment DISCONTINUED - NMR Profile ( [id number]) Indication:Elevated cholesterol Start:01-Nov-2018 Instruction Type:Patient Education DISCONTINUED - METABOLIC HERNANDES EL, COMPREHENSIVE ([id number]) Indication:Elevated cholesterol Start:01-Nov-2018 Instruction Type:Patient Education How [...] for Treatment DISCONTINUED - NMR Profile ( [id number]) Indication:Elevated cholesterol Start:01-Nov-2018 Instruction Type:Patient Education DISCONTINUED - METABOLIC HERNANDES EL, COMPREHENSIVE ([id number]) Indication:Elevated cholesterol Start:01-Nov-2018 Instruction Type:Patient Education How [...] for Treatment DISCONTINUED - NMR Profile ( [id number]) Indication:Elevated cholesterol Start:01-Nov-2018 Instruction Type:Patient Education DISCONTINUED - METABOLIC HERNANDES EL, COMPREHENSIVE ([id number]) Indication:Elevated cholesterol Start:01-Nov-2018 Instruction Type:Patient Education How [...] for Treatment DISCONTINUED - NMR Profile ( [id number]) Indication:Elevated cholesterol Start:01-Nov-2018 Instruction Type:Patient Education DISCONTINUED - METABOLIC HERNANDES EL, COMPREHENSIVE ([id number]) Indication:Elevated cholesterol Start:01-Nov-2018 Instruction Type:Patient Education How [...] for Treatment DISCONTINUED - NMR Profile ( [id number]) Indication:Elevated cholesterol Start:01-Nov-2018 Instruction Type:Patient Education DISCONTINUED - METABOLIC HERNANDES EL, COMPREHENSIVE ([id number]) Indication:Elevated cholesterol Start:01-Nov-2018 Instruction Type:Patient Education How [...] Records Found Name Dates Details Immunization Registry [place] - Effective on 03/23/2018. Expiration date unspecified Effective:23-Mar-2018 Name Dates Details Immunization Registry [place] - Effective on 03/23/2018. Expiration date unspecified Effective:23-Mar-2018 Name Dates Details Immunization Registry [place] - Effective on 03/23/2018. Expiration date unspecified Effective:23-Mar-2018 Name Dates Details Immunization Registry [place] - Effective on 03/23/2018. Expiration date unspecified Effective:23-Mar-2018 Name Dates Details Immunization Registry [place] - Effective on 03/23/2018. Expiration date unspecified Effective:23-Mar-2018 Name Dates Details Immunization Registry [place] - Effective on 03/23/2018. Expiration date unspecified Effective:23-Mar-2018 Name Dates Details Immunization Registry [place] - Effective on 03/23/2018. Expiration date unspecified Effective:23-Mar-2018 Name Dates Details Immunization Registry [place] - Effective on 03/23/2018. Expiration date unspecified Effective:23-Mar-2018 Name Dates Details Immunization Registry [place] - Effective on 03/23/2018. Expiration date unspecified Effective:23-Mar-2018 Name Dates Details Immunization Registry [place] - Effective on 03/23/2018. Expiration date unspecified Effective:23-Mar-2018 Name Dates Details Immunization Registry [place] - Effective on 03/23/2018. Expiration date unspecified Effective:23-Mar-2018 Name Dates Details Immunization Registry [place] - Effective on 03/23/2018. Expiration date unspecified Effective:23-Mar-2018 Name Dates Details Immunization Registry [place] - Effective on 03/23/2018. Expiration date unspecified Effective:23-Mar-2018 Advance Directive Response Recorded Date/ Time Living Will Yes May 08, 2 022 1:17pm Power of Stripping And Booking Machine Operator Yes May 08, 2022 1:17pm Name of Medical Power of Stripping And Booking Machine Operator BROTHER VENECIA May 08, 2022 1:17pm Name Dates Details Immunization Registry [place] - Effective on 03/23/2018. Expiration date unspecified Effective:23-Mar-2018 Name Dates Details Immunization Registry [place] - Effective on 03/23/2018. Expiration date unspecified Effective:23-Mar-2018 Name Dates Details Immunization Registry [place] - Effective on 03/23/2018. Expiration date unspecified Effective:23-Mar-2018 Advance Directive Response Recorded Date/ Time Living Will Yes September 10, 2022 10:30am Power of Stripping And Booking Machine Operator Yes September 10 10:30am Name Dates Details Immunization Registry [place] - Effective on 03/23/2018. Expiration date unspecified Effective:23-Mar-2018 Advance Directive Response Recorded Date/ Time Name of Medical Power of Stripping And Booking Machine Operator /VENECIA RG September 10, 2022 10:30am Living Will Yes September 10, 2022 10:30am Power of Stripping And Booking Machine Operator Yes September 10 10:30am Name Dates Details Immunization Registry [place] - Effective on 03/23/2018. Expiration date unspecified Effective:23-Mar-2018 Name Dates Details Immunization Registry [place] - Effective on 03/23/2018. Expiration date unspecified Effective:23-Mar-2018 Name Dates Details Immunization Registry [place] - Effective on 03/23/2018. Expiration date unspecified Effective:23-Mar-2018 Advance Directive Response Recorded Date/ Time Name of Medical Power of Stripping And Booking Machine Operator April 29, 2023 8:39am Living Will Yes April 29, 023 8:39am Power of Stripping And Booking Machine Operator Yes April 29, 2023 8:39am Advance Directive Response Recorded Date/ Time Living Will Yes April 29, 2 023 9:39am Power of Stripping And Booking Machine Operator Yes April 29, 2023 9:39am Summary Purpose [...] section and content) DATE CREATED AUTHOR 08/15/2019 [facility] ([place]) DATE CREATED AUTHOR AUTHOR'S ORGANIZ ATION 08/09/2022 [facility] DATE CREATED AUTHOR AUTHOR'S ORGANIZ ATION 03/26/2025 [facility] Care Teams (unrecognized sec tion and content) Team Status: Active Member Role Status Dates Kaylynn Ramirez NP, GENERAL SUPERINTENDENT-C Family Provider Active JEAN Figueroa Primary Care [...] Member Role Status Dates Herlinda Lopez , GENERAL SUPERINTENDENT-C Primary Care Provider Active Dr. Quinn Melissa MD Attending Provider, Referring P rovider Active Team Status: Inactive Member Role Status Dates Herlinda Lopez , GENERAL SUPERINTENDENT-C Primary Care Provider, Referring Provider Active Roni ANGEL PA Attending Provider Active Team Status: Active Member Role Status Dates Herlinda Lopez GENERAL SUPERINTENDENT-C Primary Care Provider Active Dr. Derrek Baez MD Attending Provider Activ e Dr. Tyler Donahue MD Referring Provider Active Team Status: Inactive Member Role Status Dates Herlinda Lopez , GENERAL SUPERINTENDENT-C Primary Care Provider Active Dr. Tyler Donahue MD Attending Provider, Referring P rovider Active Team Status: Inactive Member Role Status Dates Herlinda Lopez , GENERAL SUPERINTENDENT-C Primary Care Provider, Referring Provider Active STANLEY Main Attending Provider Active Team Status: Active Member Role Status Dates Herlinda Lopez GENERAL SUPERINTENDENT-C Primary Care Provider Active Dr. Livan Croft MD Attending Provider Active Team Status: Inactive Member Role Status Dates Herlinda Lopez GENERAL SUPERINTENDENT-C Primary Care Provider Active STANLEY Main Attending Provider, Referring Provid er Active Team Status: Active Member Role Status Dates Herlinda Lopez GENERAL SUPERINTENDENT-C Primary Care Provider Active Team Status: Inactive Member Role Status Dates Herlinda Lopez GENERAL SUPERINTENDENT-C Primary Care Provider Active Start: August 02, 2024 End: August 02, 2024 Herlinda Lopez GENERAL SUPERINTENDENT-C Attending Provider Active Start: August 02, 2024 End: August 02, 2024 Herlinda Lopez GENERAL SUPERINTENDENT-C Referring Provider Active Start: August 02, 2024 End: August 02, 2024 Team Status: Active Member Role Status Dates Herlinda Lopez GENERAL SUPERINTENDENT-C Primary Care Provider Active Start: August 03, 2024 Herlinda Lopez GENERAL SUPERINTENDENT-C Attending Provider Active Start: August 03, 2024 Herlinda Lopez GENERAL SUPERINTENDENT-C Referring Provider Active Start: August 03, 2024 Team Status: Inactive Member Role Status Dates Herlinda Lopez GENERAL SUPERINTENDENT-C Primary Care Provider Active Start: August 03, 2024 End: August 03, 2024 Herlinda Lopez GENERAL SUPERINTENDENT-C Attending Provider Active Start: August 03, 2024 End: August 03, 2024 Herlinda Lopez GENERAL SUPERINTENDENT-C Referring Provider Active Start: August 03, 2024 End: August 03, 2024 Team Status: Inactive Member Role Status Dates Herlinda Lopez GENERAL SUPERINTENDENT-C Primary Care Provider Active Start: August 17, 2024 End: August 17, 2024 Herlinda Lopez GENERAL SUPERINTENDENT-C Attending Provider Active Start: August 17, 2024 End: August 17, 2024 Herlinda Lopez GENERAL SUPERINTENDENT-C Referring Provider Active Start: August 17, 2024 End: August 17, 2024 Team Status: Inactive Member Role Status Dates Herlinda Lopez GENERAL SUPERINTENDENT-C Primary Care Provider Active Start: August 22, 2024 End: August 22, 2024 Herlinda Lopez NP-C Referring Provider Active Start: August 22, 2024 End: August 22, 2024 Tanvi Rodriguez NP, GENERAL SUPERINTENDENT-C Attending Provider Active Start: August 22, 2024 End: August 22, 2024 Team Status: Inactive Member Role Status Dates Herlinda Lopez GENERAL SUPERINTENDENT-C Primary Care Provider Active Start: August 25, 2024 End: August 25, 2024 Tanvi Rodriguez NP, GENERAL SUPERINTENDENT-C Attending Provider Active Start: August 25, 2024 End: August 25, 2024 Tanvi Rodriguez NP, GENERAL SUPERINTENDENT-C Referring Provider Active Start: August 25, 2024 End: August 25, 2024 Team Status: Active Member Role/Relationship Status Dates Herlinda Lopez NP-C Primary care physician Active Team Status: Inactive Member Role/Relationship Status Dates Herlinda Lopez GENERAL SUPERINTENDENT-C Primary care physician Active Start: February 08, [...] BE BASED ON THE PRIMARY CLINICAL RECORDS. [facility] provides no warranty or guarantee of the accuracy or completeness of information in this document.
[2025-05-03] MEDS: Lactated Ringers 1,000 ML 15 ML IV (06:37)
--- NOTE | 2025-05-03 07:31 | PCM.PRE.AN2 ---
ASA Classification* ASA Classification ASA Classification: 2 Assessment & Plan Anesthesia* Anesthesia Assessment Anesthesia Assessment: Discussed sedation and/or anesthesia options, risks, benefits, and alternatives with patient/parents/legal guardian/POA. Questions invited. The patient/parents/legal guardian/POA seems to understand and agrees to proceed with anesthesia plan. Reviewed the physical assessment, medical history, allergy history and patient home medications list prior to surgery/procedure/anesthetic and documented any changes. Performed airway and anesthesia risk assessments. Anesthesia Type Anesthesia Type: MAC History Source History Obtained from:: Patient and Chart Anesthesia Focused Assessment* Temperature: 97.3 F Pulse Rate: 74 Blood Pressure: 139/86 Respiratory Rate: 16 Pulse Ox: 100 Oxygen Delivery Method: Room Air Airway Assessment Mouth opens: >3 cm Mallampati Score: IV Teeth Condition: Caps/Crowns (Patient has a couple of crowns. They are tight.), Chipped/Broken (Tooth #8 is bonded.) and Missing (Patient is missing a left lower molar. Rest of the teeth are tight.) Neck Range of motion (ROM): Limited ROM (Slight Decrease) Labs Anesthesia Preop lab: CBC WBC, (4.4-11.0) 9.8 K/mm3 04/14/25, 12:34 RBC, (4.2-5.4) 4.69 M/mm3 04/14/25, 12:34 Hgb, (12.0-15.0) 13.5 g/dL 04/14/25, 12:34 Hct, (37-47) 41.9 % 04/14/25, 12:34 Plt Count, (150-450) 399 K/mm3 04/14/25, 12:34 CHEMISTRY Potassium, (3.3-5.1) 4.1 mmol/L 02/08/25, 10:06 Sodium, (133-145) 138 mmol/L 02/08/25, 10:06 Magnesium, (1.6-2.6) 2.1 mg/dL 09/09/22, 09:16 Phosphorus, (2.5-4.9) 3.5 mg/dL 01/22/17, 06:26 BUN, (4-19) 19 mg/dL 02/08/25, 10:06 Creatinine, (0.70-1.20) 0.84 mg/dL 02/08/25, 10:06 Glucose, (70-99) 91 mg/dL 02/08/25, 10:06 POC Glucose, (74-106) 110 mg/dL H 09/24/22, 06:28 TSH, (0.358-3.740) 1.460 uIU/mL 02/03/24, 09:46 COAG Pre-Assessment Diagnosis/Proposed Procedure Planned Operative Procedure(s): CSCOPE Anesthesia History 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 When Was Last Pacemaker Check QUESTION #4 FULL TEXT: You/Your Family Experience fever (hyperthermia) with Anesthesia Last Oral Intake Last Oral intake: Last Oral Intake NPO since 00:00 05/03/25 06:33 Meds taken in AM with sips of No 05/03/25 06:33 water? Meds patient instructed to take am of surgery PONV PONV - dramatic coach: PONV - dramatic coach Female Yes 03/21/25 12:41 HX of Motion Sickness No 03/21/25 12:41 HX of N/V After Surgery No 03/21/25 12:41 Non-Smoker Yes 03/21/25 12:41 Duration of Surgery greater No 03/21/25 12:41 than 60 minutes Number of Risk Factors 2 03/21/25 12:41 PONV Score Moderate Risk 03/21/25 12:41 Height & Weight Height & Weight: Anesthesia: Height & Weight Height 5 ft 1 in 05/03/25 06:33 Weight: 69 kg 05/03/25 06:33 Body Mass Index (BMI) 28.7 05/03/25 06:33 Respiratory Assessment Respiratory Assessment - dramatic coach: Respiratory Tract Infection Hx - dramatic coach Hx Respiratory Tract Infection No 03/21/25 12:41 STOP Sleep Apnea STOP Sleep Apnea - dramatic coach: STOP Sleep Apnea - dramatic coach Hx Hypertension No 03/21/25 12:41 Hx Sleep Apnea No 03/21/25 12:41 CPAP BIPAP Do you snore loudly (louder No 03/21/25 12:41 than talking or can be heard Do you often feel tired/ No 03/21/25 12:41 fatigued/ sleepy during daytime? Has anyone observed you stop No 03/21/25 12:41 breathing during sleep? STOP Results Negative 03/21/25 12:41 QUESTION #5 FULL TEXT : Do you snore loudly (louder than talking or can be heard through closed doors)? Tobacco Use History Tobacco Use History - dramatic coach: Tobacco Use History - dramatic coach Tobacco Use Smoking Status Never smoker 03/21/25 12:41 Hx Tobacco Use No 03/21/25 12:41 Years Smoking Packs Smoked per Day Smoking Cessation Date was within the last 15 years Hx Smoking Cessation Date Hx Smoking Cessation Counseling Hematologic Medial History Hematologic Hx - dramatic coach: Hematologic Medical Hx - public health dentist Hx of Blood Transfusion No 03/21/25 12:41 Hx of Transfusion in last 3 No 03/21/25 12:41 Months Date of Last Transfusion (if within last 3 months) Ever experience any problems No 03/21/25 12:41 with transfusion(s)? Specify any problems Hx of Preganancy in last 3 N/A 03/21/25 12:41 Months Nurse Filling Out Transfusion NBUCHER 03/21/25 12:41 & Questions: Date: 03/21/25 03/21/25 12:41 Time: 12:42 03/21/25 12:41 Patient unable to answer at this time (ie. confused, unrespo /Reproduction History /Reproductive History - dramatic coach: /Reproductive Hx- dramatic coach Hx Now No 03/21/25 12:41 Gestational Age (in weeks): EDC: Hx Hx Para Hx Section SAB No 03/21/25 12:41 Does the father of the baby or his family experience fever w Father of the baby Malignant Hypertension history comment Active Medications Active Medications: Current Medications Generic Name Dose Route Start Last Admin Trade Name Freq PRN Reason Stop Dose Admin Lactated Ringer's 1,000 mls @ 15 mls/hr 05/03/25 06:30 05/03/25 06:37 IV 15 mls/hr .Q48H KENYA Administration PFSH Medical History PVC (premature ventricular contraction) Cataracts, bilateral Bladder disease Leg pain, left Varicose veins of left lower extremity with inflammation Chronic venous insufficiency Post-menopausal Alcohol use Arthritis Cyst Non-smoker Leg cramps History of pain when walking Osteoarthritis High cholesterol Bone fracture Home Medications ?Medication ?Instructions ?Recorded ?Last Taken ?Type vitamin D3 125 mcg (5,000 1 cap PO DAILY SUPPLEMENT 05/08/22 05/12/23 History unit)-vitamin K2 90 mcg capsule pravastatin 40 mg tablet 40 mg PO QHS CHOLESTEROL 09/10/22 05/01/25 History sodium sul 1.479 gram-potas ch See Rx Instructions PO PER PKG DIR 03/14/25 Unknown Rx 0.188 gram-magnes sul 0.225 gram #30 tabs tablet (Sutab) Allergy/AdvReac Type Severity Reaction Status Date / Time No Known Allergies Allergy Verified 05/03/25 06:32 Family History Mother A-fib Heart disease Hypertension High cholesterol Father Arthritis Pre-diabetes Hypertension High cholesterol Aunt Breast cancer Chronic lymphocytic leukemia Uncle Chronic lymphocytic leukemia Surgical History Hx of total knee arthroplasty History of appendectomy History of cataract removal with insertion of prosthetic lens History of total hip replacement Social History Smoking Status: Never smoker alcohol intake: current substance use type: does not use caffeine: Yes what type of physical activity do you participate in: walking, swimming and aerobics frequency: 3-4 times per week Review of Systems (Anesthesia) ROS Narrative System reviewed and no additional complaints, except as documented.
--- NOTE | 2025-05-03 07:39 | PCM.HP.STD ---
HPI - General General Date of Admission: 05/03/25 Date of Service: 05/03/25 Chief Complaint: Personal history of polyps HPI Narrative NERISSA RG, is a 74 F who presents [for evaluation of her colon and surveillance colonoscopy. Last colonoscopy back in 2019. She has several benign polyps removed at that time. She comes in for surveillance.] [facility] Medical History PVC (premature ventricular contraction) Cataracts, bilateral Bladder disease Leg pain, left Varicose veins of left lower extremity with inflammation Chronic venous insufficiency Post-menopausal Alcohol use Arthritis Cyst Non-smoker Leg cramps History of pain when walking Osteoarthritis High cholesterol Bone fracture Home Medications ?Medication ?Instructions ?Recorded ?Last Taken ?Type vitamin D3 125 mcg (5,000 1 cap PO DAILY SUPPLEMENT 05/08/22 05/12/23 History unit)-vitamin K2 90 mcg capsule pravastatin 40 mg tablet 40 mg PO QHS CHOLESTEROL 09/10/22 05/01/25 History sodium sul 1.479 gram-potas ch See Rx Instructions PO PER PKG DIR 03/14/25 Unknown Rx 0.188 gram-magnes sul 0.225 gram #30 tabs tablet (Sutab) Allergy/AdvReac Type Severity Reaction Status Date / Time No Known Allergies Allergy Verified 05/03/25 06:32 Family History Mother A-fib Heart disease Hypertension High cholesterol Father Arthritis Pre-diabetes Hypertension High cholesterol Aunt Breast cancer Chronic lymphocytic leukemia Uncle Chronic lymphocytic leukemia Surgical History Hx of total knee arthroplasty History of appendectomy History of cataract removal with insertion of prosthetic lens History of total hip replacement Social History Smoking Status: Never smoker alcohol intake: current substance use type: does not use caffeine: Yes what type of physical activity do you participate in: walking, swimming and aerobics frequency: 3-4 times per week ROS Constitutional Constitutional: Denies fatigue, fever(s), poor appetite, weight gain or weight loss Gastrointestinal Gastrointestinal: Denies belching, bloating, change in bowel habits, change in stool character, chewing difficulty, coffee ground emesis, constipation, cramping, diarrhea, dyspepsia, dysphagia, early satiety, excessive flatus, fecal incontinence, heartburn, hematemesis, hematochezia, hemorrhoids, loose stools, melena, nausea, odynophagia, rectal bleeding, tenesmus, vomiting or weight changes Vital Signs Vital Signs Vital Signs: 05/03/25 06:33 05/03/25 06:33 05/03/25 06:33 Temperature 97.3 F L Temperature Source Temporal Pulse Rate 74 Respiratory Rate 16 Respiratory Pattern Normal Blood Pressure 139/86 H Blood Pressure Mean 103 Blood Pressure Source Monitor Blood Pressure Position Sitting Blood Pressure Location Left Arm Baseline BP 139/86 Pulse Ox 100 Oxygen Delivery Method Room Air 05/03/25 07:36 Temperature 97.3 F L Temperature Source Pulse Rate 74 Respiratory Rate 16 Respiratory Pattern Blood Pressure 139/86 H Blood Pressure Mean Blood Pressure Source Blood Pressure Position Blood Pressure Location Baseline BP Pulse Ox 100 Oxygen Delivery Method Room Air Weight Weight: 152 lb 1.903 oz Body Mass Index (BMI) 28.7 Physical Exam Const alert, oriented x3, no apparent distress and healthy appearing General Appearance: cooperative GI normal to inspection, nondistended, normoactive bowel sounds, soft to palpation, non-tender and non-distended Percussion: normal to percussion Rectal Exam: deferred Assessment & Plan Assessment/Plan (1) Personal history of colonic polyps: PLAN: She will undergo colonoscopy. She was explained alternatives, risk and benefits clued not withstanding bleeding, infection, sepsis, perforation, need for more surgery . She will have an ASA of 3.
--- NOTE | 2025-05-03 08:30 | PCM.POST.ANE ---
Anesthesia: Postop Eval I Current Vital Signs Temperature: 97 F Pulse Rate: 57 Blood Pressure: 101/72 Respiratory Rate: 16 Pulse Ox: 97 Oxygen Delivery Method: Room Air Assessment Airway patent: Yes Spontaneous unlabored respirations: Yes Mental status: Awake and Calm nausea: No Vomiting: No Anesthesia Complication: No Fluid Hydration Crystalloid volume administer (ml): 600 Total IV fluid infused: 600 Progress Note Anesthesia document: Postop Eval 1 completed: Yes
--- NOTE | 2025-05-03 08:32 | OP.COLON_ITS ---
Patient Name: Nadine Dos Santos Procedure Date: 05/03/2025 7:44 AM Date of : 1950 Age: 74 Procedure: Colonoscopy Indications: Screening for colorectal malignant neoplasm Providers: Mahesh Machado DO Referring MD: Mehrdad Figueroa Medicines: Monitored Anesthesia Care Patient Profile: This is a 74 year old female. Refer to note in patient chart for documentation of history and physical. Last Colonoscopy: 5 years ago. Complications: No immediate complications. Procedure: Pre-Anesthesia Assessment: - Prior to the procedure, a History and Physical was performed, and patient medications and allergies were reviewed. The patient is competent. The risks and benefits of the procedure and the sedation options and risks were discussed with the patient. All questions were answered and informed consent was obtained. Patient identification and proposed procedure were verified by the physician. Mental Status Examination: alert and oriented. Airway Examination: normal oropharyngeal airway and neck mobility. Respiratory Examination: clear to auscultation. CV Examination: normal. Prophylactic Antibiotics: The patient does not require prophylactic antibiotics. Prior Anticoagulants: The patient has taken no anticoagulant or antiplatelet agents. ASA Grade Assessment: II - A patient with mild systemic disease. After reviewing the risks and benefits, the patient was deemed in satisfactory condition to undergo the procedure. The anesthesia plan was to use monitored anesthesia care (MAC). Immediately prior to administration of medications, the patient was re-assessed for adequacy to receive sedatives. The heart rate, respiratory rate, oxygen saturations, blood pressure, adequacy of pulmonary ventilation, and response to care were monitored throughout the procedure. The physical status of the patient was re-assessed after the procedure. After I obtained informed consent, the scope was passed under direct vision. Throughout the procedure, the patient's blood pressure, pulse, and oxygen saturations were monitored continuously. The Colonoscope was introduced through the anus and advanced to the cecum, identified by appendiceal orifice and ileocecal valve. The Colonoscope was introduced through the and advanced to. The colonoscopy was performed without difficulty. The patient tolerated the procedure well. The quality of the bowel preparation was adequate. Anatomical landmarks were photographed. Scope In: 7:57:03 AM Scope Withdrawal Time 0 hours 17 minutes 23 seconds Scope Out: 8:19:29 AM Total Procedure Duration Time 0 hours 22 minutes 26 seconds Findings: The perianal and digital rectal examinations were normal. Two small-mouthed diverticula were found in the recto-sigmoid colon. Stool was found in the sigmoid colon, in the transverse colon and in the cecum. The exam was otherwise without abnormality on direct and retroflexion views. Impression: - Diverticulosis in the recto-sigmoid colon. - Stool in the sigmoid colon, in the transverse colon and in the cecum. - The examination was otherwise normal on direct and retroflexion views. - No specimens collected. Recommendation: - Discharge patient to home. - Resume previous diet. - Continue present medications. - Repeat colonoscopy in 5 years for surveillance. Procedure Code(s): --- Professional --- G0121, Colorectal cancer screening; colonoscopy on individual not meeting criteria for high risk CPT copyright 2021 [employer]. All rights reserved. The codes documented in this report are preliminary and upon director operations broadcast review may be revised to meet current compliance requirements. Mahesh Machado DO 05/03/2025 8:31:25 AM This report has been signed electronically. Number of Addenda: 0 Note Initiated On: 05/03/2025 7:44 AM
--- NOTE | 2025-05-03 08:32 | OP.PROVAT_ITS ---
05/03/2025 Mehrdad Figueroa Re : Colonoscopy procedure for Nadine Dos Santos Dear John This procedure was performed on Saturday, May 03, 2025. My impressions and recommendations are as follows: Impressions : - Diverticulosis in the recto-sigmoid colon. - Stool in the sigmoid colon, in the transverse colon and in the cecum. - The examination was otherwise normal on direct and retroflexion views. - No specimens collected. Recommendations : - Discharge patient to home. - Resume previous diet. - Continue present medications. - Repeat colonoscopy in 5 years for surveillance. My findings are described in the full procedure note, which is enclosed. If I can be of further assistance, please feel free to contact me at . Sincerely, Mahesh Machado, 05/03/2025 8:31:25 AM This report has been signed electronically.
--- NOTE | 2025-05-03 21:49 | PCM.POSTANE2 ---
Anesthesia Postop Eval I Sum Postop Eval Completion status Anesthesia document: Postop Eval 1 completed: Yes Anesthesia Postop Eval I Summary Anesthesia Postop Eval I Summary: Anesthesia Postop Eval I: Assessment Summary Airway patent Yes 05/03/25 08:32 [email or web address] Spontaneous unlabored Yes 05/03/25 08:32 [email or web address] respirations Mental status Awake,Calm 05/03/25 08:32 [email or web address] nausea No 05/03/25 08:32 [email or web address] Vomiting No 05/03/25 08:32 [email or web address] Anesthesia Postop Eval I: Fluid Summary Crystalloid volume administer 600 05/03/25 08:32 [email or web address] (ml) Colloids volume administered ( ml) Blood Product volume administered (ml) Total IV fluid infused 600 05/03/25 08:32 [email or web address] Anesthesia Postop Eval I: Summary Notes Anesthesia Complication No 05/03/25 08:32 [email or web address] Anesthesia Complication Comment: Post-operative progress note Anesthesia: Postop Eval II Evaluation Mental status: Awake and Calm Pain Level: 0 nausea: No Vomiting: No Complications Anesthesia Complication: No
== END 2025-05-03 09:38 | disposition home or self-care (01) ==
LOC: EN 06:15 → AC 06:16
PROVIDERS: PCP Nurse Practitioner Family; Referring Provider Nurse Practitioner Family; Visit Provider Internal Medicine Gastroenterology
PROC: 0DJD8ZZ Inspection of Lower Intestinal Tract, Via Natural or Artificial Opening Endoscopic (ICD-10-PCS; CPT 45378; principal; 2025-05-03 07:25)
DX: Z12.11 Encounter for screening for malignant neoplasm of colon (principal); K57.30 Diverticulosis of large intestine without perforation or abscess without bleeding; Z86.0100 Personal history of colon polyps, unspecified; E78.00 Pure hypercholesterolemia, unspecified; Z79.899 Other long term (current) drug therapy
CPT/HCPCS: G0121; J2405